=== PATIENT | male | born 1950 | race Caucasian/White ===

== ENCOUNTER 2016-07-17 21:19 | Emergency (ER) | payer OTHER ==
[2016-07-17 21:45] VITALS: BP 157/66; PULSE 66; TEMP 98.6; BMI 32.5
--- NOTE | 2016-07-17 21:47 | PDOC ---
History of Present Illness - General History Source: Patient Exam Limitations: No Limitations - History of Present Illness Initial Comments: 07/17/16 22:16 Patient is a 65 year old male with a significant past medical history of DM, htn , hld, femoral stents (on Plavix) and BPH who presents to the ED with urinary frequency and L flank pain. Patient notes that he gets urgency every 5 minutes to urinate but has a small urine output. He states that he has a sensation to urinate all the time. He states that he cannot sit down due to the pressure he experiences while sitting down that radiates to his rectum. He notes that his last bowel movement was today, normal and without any pain during the movement. PCP - Dr. Hillman <Shelbie Santos - Last Filed: 07/17/16 22:15> <Jeannine Garcia - Last Filed: 07/18/16 06:39> - General Chief Complaint: Urinary Problem Stated Complaint: URINARY PROBLEM/PAIN Time Seen by Provider: 07/17/16 21:46 Past History <Shelbie Santos - Last Filed: 07/17/16 22:15> - Past Medical History Cancer: Yes (lung) Diabetes: Yes HTN: Yes Hypercholesterolemia: Yes - Psycho/Social/Smoking Cessation Hx Suicidal Ideation: No Smoking History: Never smoked <Jeannine Garcia - Last Filed: 07/18/16 06:39> - Past Medical History Allergies/Adverse Reactions: Allergies Allergy/AdvReac Type Severity Reaction Status Date / Time No Known Allergies Allergy Verified 07/17/16 21:40 Home Medications: Ambulatory Orders Cefuroxime Axetil [Ceftin -] 500 mg PO Q12H #14 tablet 07/17/16 Review of Systems - Review of Systems Able to Perform ROS?: Yes Comments:: 07/17/16 22:16 GENERAL/CONSTITUTIONAL: No fever or chills. No weakness. HEAD, EYES, EARS, NOSE AND THROAT: No change in vision. No ear pain or discharge. No sore throat. CARDIOVASCULAR: No chest pain or shortness of breath. RESPIRATORY: No cough, wheezing, or hemoptysis. GASTROINTESTINAL: No nausea, vomiting, diarrhea or constipation. GENITOURINARY: +urgency, +frequency. No dysuria. MUSCULOSKELETAL: No joint or muscle swelling or pain. No neck or back pain. SKIN: No rash NEUROLOGIC: No headache, vertigo, loss of consciousness, or change in strength/ sensation. ENDOCRINE: No increased thirst. No abnormal weight change. HEMATOLOGIC/LYMPHATIC: No anemia, easy bleeding, or history of blood clots. ALLERGIC/IMMUNOLOGIC: No hives or skin allergy. <Shelbie Santos - Last Filed: 07/17/16 22:15> *Physical Exam - Vital Signs Last Vital Signs Temp Pulse Resp BP Pulse Ox 98.6 F 66 20 157/66 97 07/17/16 21:40 07/17/16 21:40 07/17/16 21:40 07/17/16 21:40 07/17/16 21:40 - Physical Exam Comments: 07/17/16 22:16 GENERAL: Awake, alert, and fully oriented, in no acute distress HEAD: No signs of trauma EYES: PERRLA, EOMI, sclera anicteric, conjunctiva clear ENT: Auricles normal inspection, hearing grossly normal, nares patent, oropharynx clear without exudates. Moist mucosa NECK: Normal ROM, supple, no lymphadenopathy, JVD, or masses LUNGS: Breath sounds equal, clear to auscultation bilaterally. No wheezes, and no crackles HEART: Regular rate and rhythm, normal S1 and S2, no murmurs, rubs or gallops ABDOMEN: Nondistended, soft, nontender, normoactive bowel sounds. No suprapubic tendereness. No guarding, no rebound. No masses EXTREMITIES: Normal range of motion, no edema. No clubbing or cyanosis. No cords, erythema, or tenderness NEUROLOGICAL: Cranial nerves II through XII grossly intact. Normal speech, normal gait SKIN: Warm, Dry, normal turgor, no rashes or lesions noted. <Shelbie Santos - Last Filed: 07/17/16 22:15> - Vital Signs Last Vital Signs Temp Pulse Resp BP Pulse Ox 98.6 F 66 20 157/66 97 07/17/16 21:40 07/17/16 21:40 07/17/16 21:40 07/17/16 21:40 07/17/16 21:40 <Jeannine Garcia - Last Filed: 07/18/16 06:39> ED Treatment Course - ADDITIONAL ORDERS Additional order review: Laboratory Results 07/17/16 21:53 Urine Color Ltyellow Urine Appearance Clear Urine pH 5.0 Ur Specific [place] 1.014 Urine Protein 2+ H Urine Glucose (UA) 1+ H Urine Ketones Negative Urine Blood Negative Urine Nitrite Negative Urine Bilirubin Negative Urine Urobilinogen Negative Ur Leukocyte Esterase 3+ H Urine RBC 1 Urine WBC 105 Ur Epithelial Cells Rare Hyaline Casts 1 Granular Casts 3 Urine Mucus Rare <Shelbie Santos - Last Filed: 07/17/16 22:15> Medical Decision Making - Medical Decision Making 07/18/16 06:38 Pt comes with dysuria and he has a UTI. We will treat with ceftin. He has no pain with bowel movements and he is afebrile and he has no suprapubic pain with palpation and no flank pain. No need for further workup. Follow with PMD. <Jeannine Garcia - Last Filed: 07/18/16 06:39> *DC/Admit/Observation/Transfer - Attestations Scribe Attestion: 07/17/16 22:17 Documentation prepared by RADHA Pagan, acting as medical instructor for Jeannine Garcia MD. <Shelbie Santos - Last Filed: 07/17/16 22:15> <Jeannine Garcia - Last Filed: 07/18/16 06:39> Diagnosis at time of Disposition: Dysuria-frequency syndrome - Discharge Dispostion Disposition: HOME Condition at time of disposition: Stable - Prescriptions Prescriptions: Cefuroxime Axetil [Ceftin -] 500 mg PO Q12H #14 tablet - Referrals Referrals: Rxe Hillman MD [Primary Care Provider] -
[2016-07-17 22:03] LABS: URINE APPEARANCE CLEAR; URINE BILIRUBIN NEGATIVE (NEGATIVE); URINE BLOOD NEGATIVE (NEGATIVE); URINE COLOR LTYELLOW; URINE GLUCOSE (UA) 1+ (NEGATIVE); URINE KETONE NEGATIVE (NEGATIVE); URINE NITRITE NEGATIVE (NEGATIVE); URINE UROBILINOGEN NEGATIVE E.U./dl (0.2-1.0)
[2016-07-17 22:06] LABS: URINE LEUK ESTERASE 3+ (NEGATIVE); URINE PROTEIN 2+ (NEGATIVE)
[2016-07-17 22:07] LABS: GRANULAR CASTS 3 /lpf; URINE HYALINE CAST 1 /lpf; URINE MUCUS RARE; URINE RBC 1 /hpf (0-3); URINE WBC 105 /hpf (3-5)
[2016-07-17] MEDS ORDERED: CEFUROXIME AXETIL 500 MG TABLET PO ONE (22:15)
[2016-07-17] MEDS ORDERED: OXYCODONE/APAP 5/325MG COMBO TABLET PO ONE (22:18)
[2016-07-17] MEDS ORDERED: IBUPROFEN 600 MG TABLET (FP) PO ONE ×2 (22:19→22:28)
[2016-07-17] MEDS ORDERED: OXYCODONE/APAP 5/325MG COMBO TABLET ONE (22:27)
== END 2016-07-17 22:39 | disposition home or self-care (01) ==
LOC: JER 21:19
DX: N39.0 Urinary tract infection, site not specified (principal); I10 Essential (primary) hypertension; E11.9 Type 2 diabetes mellitus without complications; E78.00 Pure hypercholesterolemia, unspecified; Z85.118 Personal history of other malignant neoplasm of bronchus and lung; I73.89 Other specified peripheral vascular diseases
CPT/HCPCS: 81003; 81015; 87086; 87186; 99281-25

== ENCOUNTER 2018-09-17 11:22 | Inpatient (IN) | payer OTHER ==
--- NOTE | 2018-09-17 12:10 | PDOC ---
History of Present Illness - General Chief Complaint: Shortness of Breath Stated Complaint: SOB Time Seen by Provider: 09/17/18 12:10 History Source: Patient Exam Limitations: No Limitations - History of Present Illness Initial Comments: 09/17/18 12:30 68 year old male with PMH HTN, IDDM, HLD, femoral stents, past nicotine use, NPH , UTI, right sided lung cancer s/p resection presented to ED for shortness of breath since last night. Pt reported he was laying down when his symptoms began. He stated his symptoms are constant, worsened by exertion, alleviated by rest. Pt admitted to [facility]. Pt denied chest pain, palpitations , cough, fever, sputum production. Pt reported in the last few weeks his PCP has been changing his Lasix dose, from 80 to 40 to 80 to 40 to nothing. Pt reported he last took Lasix x2 days ago. Past History - Past Medical History Allergies/Adverse Reactions: Allergies Allergy/AdvReac Type Severity Reaction Status Date / Time No Known Allergies Allergy Verified 09/17/18 11:30 Home Medications: Ambulatory Orders Amlodipine Besylate/Valsartan [Amlodipine-Valsartan 10-320 mg] 1 each PO DAILY 09/17/18 Aspirin 81 mg PO DAILY 09/17/18 Atorvastatin Ca [Lipitor] 20 mg PO HS 09/17/18 Cholecalciferol (Vitamin D3) [Vitamin D3] 50,000 unit PO WEEKLY 09/17/18 Clopidogrel Bisulfate [Plavix -] 75 mg PO DAILY 09/17/18 Doxazosin Mesylate [Cardura -] 4 mg PO DAILY 09/17/18 Furosemide [Lasix -] 40 mg PO DAILY 09/17/18 Glipizide [Glipizide ER] 10 mg PO DAILY 09/17/18 Hydralazine HCl 100 mg PO DAILY 09/17/18 Labetalol HCl 300 mg PO ASDIR 09/17/18 Nateglinide [Starlix (Nf)] 120 mg PO TID 09/17/18 Potassium Chloride [K-Dur -] 10 meq PO BID 09/17/18 Triamterene/Hydrochlorothiazid [Triamterene-Hctz 37.5-25 mg Cp] 1 each PO DAILY 09/17/18 Cancer: Yes (lung) COPD: No Diabetes: Yes HTN: Yes Hypercholesterolemia: Yes - Suicide/Smoking/Psychosocial Hx Smoking History: Never smoked Information on smoking cessation initiated: No Hx Alcohol Use: No Drug/Substance Use Hx: No Review of Systems - Review of Systems Able to Perform ROS?: Yes Comments:: 09/17/18 12:33 General: denied fever, chills, generalized weakness. HEENT: denied sore throat, rhinorrhea, ear pain. Heart: admitted to swelling. denied chest pain, palpitations, syncope, diaphoresis. Respiratory: admitted to shortness of breath, MEHTA. denied cough, sputum production, hemoptysis. Abdomen: denied abdominal pain, nausea, vomiting, diarrhea, constipation, blood in stool. : denied dysuria, increased urinary frequency, hematuria, urinary incontinence , flank pain. Back: denied back pain. Musculoskeletal: denied joint pain, muscle pain, joint swelling. Neurological: denied headache, dizziness, numbness, tingling, weakness. Skin: denied rash, laceration, abrasion. *Physical Exam - Vital Signs Last Vital Signs Temp Pulse Resp BP Pulse Ox 97.9 F 82 19 162/62 92 L 09/17/18 11:28 09/17/18 11:28 09/17/18 11:28 09/17/18 11:28 09/17/18 11:28 - Physical Exam Comments: 09/17/18 12:34 Constitutional: Well-nourished, Well-developed, appearing stated age. HEENT: head is normocephalic, atraumatic. EOMI. PERRLA. Neck: supple. Full ROM. Heart: regular rhythm. no murmurs, rubs or gallops. Lungs: clear to auscultation bilaterally. no crackles, rhonchi or wheezing. no stridor. speaking full sentences. decreased breath sounds to right base. Abdomen: soft, nontender. normal bowel sounds. no rebound, guarding, masses. Extremities: peripheral pulses intact. 4+ pitting edema bilateral LE. Neurological: CN 2-12 grossly intact. moves all four extremities. Psych: awake, alert, oriented x3. follows commands. answers questions appropriately. ED Treatment Course - LABORATORY CBC & Chemistry Diagram: 09/19/18 05:39 09/19/18 05:39 Medical Decision Making - Medical Decision Making 09/17/18 12:35 68 year old male with above PMH presented to ED for shortness of breath since last night associated with LE swelling. Initial Vital Signs Temp Pulse Resp BP Pulse Ox 97.9 F 82 19 162/62 92 L 09/17/18 11:28 09/17/18 11:28 09/17/18 11:28 09/17/18 11:28 09/17/18 11:28 Afebrile. No tachycardia. No tachypnea. Hypertensive. Mild hypoxia on room air. EKG performed at 1126: rate 83, regular rhythm, normal axis, normal intervals, one PVC, nonspecific ST changes. Labs ordered: CBC, CMP, Mg, Phos, BNP, troponin, VBG Imaging ordered: CXR Medications ordered: none 09/17/18 13:20 CBC WBC 13.4 K/mm3 (4.0-10.0) H 09/17/18 12:23 RBC 2.98 M/mm3 (4.00-5.60) L 09/17/18 12:23 Hgb 8.7 GM/dL (11.7-16.9) L 09/17/18 12:23 Hct 26.1 % (35.4-49) L D 09/17/18 12:23 MCV 87.7 fl (80-96) 09/17/18 12:23 MCH 29.4 pg (25.7-33.7) 09/17/18 12:23 MCHC 33.5 g/dl (32.0-35.9) 09/17/18 12:23 RDW 14.8 % (11.9-15.9) D 09/17/18 12:23 Plt Count 260 K/MM3 (134-434) 09/17/18 12:23 MPV 9.5 fl (7.5-11.1) 09/17/18 12:23 Absolute Neuts (auto) 11.8 K/mm3 (1.5-8.0) H 09/17/18 12:23 Neutrophils % 88.3 % (42.8-82.8) H 09/17/18 12:23 Lymphocytes % 3.0 % (8-40) L 09/17/18 12:23 Monocytes % 7.9 % (3.8-10.2) 09/17/18 12:23 Eosinophils % 0.3 % (0-4.5) 09/17/18 12:23 Basophils % 0.5 % (0-2.0) 09/17/18 12:23 Nucleated RBC % 0 % (0-0) 09/17/18 12:23 Leukocytosis with left shift. Normocytic anemia. CMP Sodium 138 mmol/L (136-145) 09/17/18 12:23 Potassium 4.2 mmol/L (3.5-5.1) 09/17/18 12:23 Chloride 103 mmol/L (98-107) 09/17/18 12:23 Carbon Dioxide 24 mmol/L (21-32) 09/17/18 12:23 Anion Gap 10 MMOL/L (8-16) 09/17/18 12:23 BUN 77.0 mg/dL (7-18) H 09/17/18 12:23 Creatinine 3.4 mg/dL (0.55-1.3) H 09/17/18 12:23 Est GFR (CKD-EPI)AfAm 20.04 09/17/18 12:23 Est GFR (CKD-EPI)NonAf 17.29 09/17/18 12:23 Random Glucose 53 mg/dL (74-106) L 09/17/18 12:23 Calcium 8.3 mg/dL (8.5-10.1) L 09/17/18 12:23 Phosphorus 4.4 mg/dL (2.5-4.9) 09/17/18 12:23 Magnesium 2.5 mg/dL (1.8-2.4) H 09/17/18 12:23 Total Bilirubin 0.2 mg/dL (0.2-1) 09/17/18 12:23 AST 23 U/L (15-37) 09/17/18 12:23 ALT 23 U/L (13-61) 09/17/18 12:23 Alkaline Phosphatase 107 U/L (45-117) 09/17/18 12:23 Troponin I < 0.02 ng/ml (0.00-0.05) 09/17/18 12:23 B-Natriuretic Peptide 3719.3 pg/ml (5-125) H 09/17/18 12:23 Total Protein 6.2 g/dl (6.4-8.2) L 09/17/18 12:23 Albumin 2.7 g/dl (3.4-5.0) L 09/17/18 12:23 No clinically significant electrolyte abnormalities. BRET No transaminitis. Troponin undetectable. BNP elevated. Pt has CHF exacerbation with BRET. CXR appears fluid overloaded. Medications ordered: Lasix 20 mg IV once 09/19/18 13:42 Follow up: Chest XR report: Single AP view the chest has been submitted. Since the prior since 10/03/2006 there is a large heart , unfolded aorta, slight tracheal deviation to the right, left perihilar infiltrate and large right effusion with right infiltrate. An element of central congestion may also be present. Correlation recommended. Reported By: Monty Perdomo MD 09/17/18 8526 *DC/Admit/Observation/Transfer Diagnosis at time of Disposition: CHF exacerbation, Leukocytosis, BRET (acute kidney injury), Normocytic anemia - Discharge Dispostion Condition at time of disposition: Stable Decision to Admit order: Yes - Referrals - Patient Instructions - Post Discharge Activity
[2018-09-17 12:57] LABS: BASO % 0.5 % (0-2.0); EOS % 0.3 % (0-4.5); HEMATOCRIT 26.1 % (35.4-49); HEMOGLOBIN 8.7 GM/dL (11.7-16.9); MCH 29.4 pg (25.7-33.7); MCHC 33.5 g/dl (32.0-35.9); MEAN CELL VOLUME 87.7 fl (80-96); MEAN PLT VOLUME 9.5 fl (7.5-11.1); MONO % 7.9 % (3.8-10.2); NEUT % 88.3 % (42.8-82.8); PLATELET COUNT 260 K/MM3 (134-434); RBC 2.98 M/mm3 (4.00-5.60); RDW 14.8 % (11.9-15.9); WHITE BLOOD COUNT 13.4 K/mm3 (4.0-10.0)
[2018-09-17 13:10] LABS: INR 1.11 (0.83-1.09); PROTHROMBIN TIME (PATIENT) 13.1 SEC (9.7-13.0)
[2018-09-17 13:12] LABS: ACTIVATED PTT 29.6 SECONDS (25.2-36.5)
[2018-09-17 13:19] LABS: ALBUMIN 2.7 g/dl (3.4-5.0); ALK PHOS 107 U/L (45-117); ANION GAP 10 MMOL/L (8-16); BILIRUBIN,TOTAL 0.2 mg/dL (0.2-1); CALCIUM 8.3 mg/dL (8.5-10.1); CHLORIDE 103 mmol/L (98-107); CO2 24 mmol/L (21-32); CREATININE 3.4 mg/dL (0.55-1.3); GLUCOSE,RANDOM 53 mg/dL (74-106); MAGNESIUM 2.5 mg/dL (1.8-2.4); N-TERMINAL BNP 3719.3 pg/ml (5-125); PHOSPHOROUS 4.4 mg/dL (2.5-4.9); POTASSIUM 4.2 mmol/L (3.5-5.1); SGOT/AST 23 U/L (15-37); SGPT/ALT 23 U/L (13-61); SODIUM 138 mmol/L (136-145); TOT PROT 6.2 g/dl (6.4-8.2)
--- NOTE | 2018-09-17 13:19 | PDOC ---
Documentation entered by Bennie Torres SCRIBE, acting as scribe for Karolina Allen MD. Karolina Allen MD: This documentation has been prepared by the Brian sawyer Nirvannie, SCRIBE, under my direction and personally reviewed by me in its entirety. I confirm that the documentation accurately reflects all work, treatment, procedures, and medical decision making performed by me. Attending Attestation - Resident Resident Name: Kerrie Mae - ED Attending Attestation I have performed the following: I have examined & evaluated the patient, The case was reviewed & discussed with the resident, I agree w/resident's findings & plan, Exceptions are as noted - HPI HPI: 09/17/18 13:04 The patient is a 68 year old male, with a significant past medical history of HTN, IDDM, HLD, femoral stents, past nicotine use, BPH, UTI, and right sided lung cancer (s/p resection), who presents to the emergency department with, constant exertional shortness of breath onsetting last night while lying supine. He denies any chest pain. Allergies: NKDA - Physicial Exam PE: 09/17/18 12:19 GENERAL: Awake, alert, and fully oriented, in no acute distress HEAD: No signs of trauma EYES: PERRLA, EOMI, sclera anicteric, conjunctiva clear. +B/L periorbital edema ENT: Auricles normal inspection, hearing grossly normal, nares patent, oropharynx clear without exudates. Moist mucosa NECK: Normal ROM, supple, no lymphadenopathy, JVD, or masses LUNGS: Good air entry B/L, +diffuse rhonchi HEART: Regular rate and rhythm, normal S1 and S2, no murmurs, rubs or gallops ABDOMEN: Soft, nontender, normoactive bowel sounds. No guarding, no rebound. No masses EXTREMITIES: Normal range of motion, 3+ pitting edema to BLE. No clubbing or cyanosis. No cords, erythema, or tenderness NEUROLOGICAL: Cranial nerves II through XII grossly intact. Normal speech. Motor and sensation intact SKIN: Warm, Dry, normal turgor, no rashes or lesions noted - Medical Decision Making Pt presents with recent URI symptoms and cough, now with SOB and MEHTA. DDx includes ACS, CHF, pna. Will obtain CXR and labs. Likely admission given multiple comorbidities.
[2018-09-17] MEDS ORDERED: FUROSEMIDE 40 MG/4 ML INJECTABLE VIAL IVPUSH ONE (13:33)
[2018-09-17] MEDS ORDERED: FUROSEMIDE 40 MG/4 ML INJECTABLE VIAL ONE (13:35)
[2018-09-17 14:08] LABS: VENOUS PC02 39.5 mmHg (41-51); VENOUS PH 7.38 (7.31-7.41); VENOUS PO2 58.6 mmHg (30-40)
--- NOTE | 2018-09-17 14:37 | HP ---
Admitting History and Physical - Primary Care Physician PCP: Rex Hillman - Admission History of Present Illness: Pt seen/ examined chart reviewed 68 year old male with PMH HTN, IDDM, HLD, femoral stents, past nicotine use, NPH , UTI, right sided lung cancer s/p resection presented to ED for shortness of breath since last night. Pt reported he was laying down when his symptoms began. He stated his symptoms are constant, worsened by exertion, alleviated by rest. Pt admitted to [facility]. Pt denied chest pain, palpitations , cough, fever, sputum production. Pt reported in the last few weeks his PCP has been changing his Lasix dose, from 80 to 40 to 80 to 40 to nothing. Pt reported he last took Lasix x2 days ago. pt given lasix in er -- for chf exac pt seen / examined by me in er History Source: Patient Limitations to Obtaining History: No Limitations - Smoking History Smoking history: Never smoked - Alcohol/Substance Use Hx Alcohol Use: No Home Medications - Allergies Allergies/Adverse Reactions: Allergies Allergy/AdvReac Type Severity Reaction Status Date / Time No Known Allergies Allergy Verified 09/17/18 11:30 - Home Medications Home Medications: Ambulatory Orders Amlodipine Besylate/Valsartan [Amlodipine-Valsartan 10-320 mg] 1 each PO DAILY 09/17/18 Aspirin 81 mg PO DAILY 09/17/18 Atorvastatin Ca [Lipitor] 20 mg PO HS 09/17/18 Cholecalciferol (Vitamin D3) [Vitamin D3] 50,000 unit PO WEEKLY 09/17/18 Clopidogrel Bisulfate [Plavix -] 75 mg PO DAILY 09/17/18 Doxazosin Mesylate [Cardura -] 4 mg PO DAILY 09/17/18 Furosemide [Lasix -] 40 mg PO DAILY 09/17/18 Glipizide [Glipizide ER] 10 mg PO DAILY 09/17/18 Hydralazine HCl 100 mg PO DAILY 09/17/18 Labetalol HCl 300 mg PO ASDIR 09/17/18 Nateglinide [Starlix (Nf)] 120 mg PO TID 09/17/18 Potassium Chloride [K-Dur -] 10 meq PO BID 09/17/18 Triamterene/Hydrochlorothiazid [Triamterene-Hctz 37.5-25 mg Cp] 1 each PO DAILY 09/17/18 Review of Systems - Review of Systems Constitutional: reports: Weakness Eyes: reports: No Symptoms Neck: reports: No Symptoms Cardiovascular: reports: No Symptoms, Shortness of Breath Respiratory: reports: SOB Genitourinary: reports: No Symptoms Neurological: reports: No Symptoms Psychiatric: reports: No Symptoms Physical Examination Vital Signs: Vital Signs Temperature 97.9 F 09/17/18 11:28 Pulse Rate 74 09/17/18 14:27 Respiratory Rate 22 H 09/17/18 14:27 Blood Pressure 171/84 H 09/17/18 14:27 O2 Sat by Pulse Oximetry (%) 99 09/17/18 14:27 Constitutional: Yes: No Distress, Calm Eyes: Yes: Conjunctiva Clear Neck: Yes: Supple Respiratory: Yes: Diminished, Dullness Gastrointestinal: Yes: Soft Edema: LLE: Trace, RLE: Trace Neurological: Yes: Alert Psychiatric: Yes: Alert Labs: CBC, BMP 09/17/18 12:23 09/17/18 12:23 Imaging - Results Chest X-ray: Report Reviewed Problem List - Problems (1) Pneumonia Code(s): J18.9 - PNEUMONIA, UNSPECIFIED ORGANISM (2) Acute and chronic respiratory failure Code(s): J96.20 - ACUTE AND CHR RESP FAILURE, UNSP W HYPOXIA OR HYPERCAPNIA (3) CHF exacerbation Code(s): I50.9 - HEART FAILURE, UNSPECIFIED (4) History of lung cancer Code(s): Z85.118 - PERSONAL HISTORY OF MALIGNANT NEOPLASM OF BRONCHUS AND LUNG (5) Diabetes Code(s): E11.9 - TYPE 2 DIABETES MELLITUS WITHOUT COMPLICATIONS (6) Chronic renal insufficiency, stage III (moderate) Code(s): N18.3 - CHRONIC KIDNEY DISEASE, STAGE 3 (MODERATE) Assessment/Plan Discussed cxr - showed pneumonia also stat dose of levaquin nebulizer treatment i/v lasix pulmonary/ cardiology consults dvt prophylaxis meds order written monitor bgm avoid nsaids will follow
[2018-09-17 14:39] LABS: EPI CELLS 2.7 /HPF (0-5/HPF); HYALINE CASTS 6 /lpf (0-8); URINE APPEARANCE CLEAR; URINE BACTERIA 4.7 /hpf (NEGATIVE); URINE BILIRUBIN NEGATIVE (NEGATIVE); URINE COLOR YELLOW; URINE GLUCOSE (UA) NEGATIVE (NEGATIVE); URINE KETONE NEGATIVE (NEGATIVE); URINE LEUK ESTERASE NEGATIVE (NEGATIVE); URINE NITRITE NEGATIVE (NEGATIVE); URINE PROTEIN 3+ (NEGATIVE); URINE RBC 3 /hpf (0-4); URINE UROBILINOGEN 0.2 mg/dL (0.2-1.0); URINE WBC 1 /hpf (0-5)
--- NOTE | 2018-09-17 16:03 | CON.CARD ---
Consult Consult Specialty:: Cardiology Referred by:: Medicine Reason for Consultation:: CHF - History of Present Illness Chief Complaint: shortness of breath History of Present Illness: 68M h/o HTN, DM, HLD, PAD s/p femoral stent, prior smoker, R sided lung ca s/p partial resection p/w shortness of breath. Started two days ago, felt like he was catching a cold, did not improve and woke up unable to breathe prior to admission. Also feels tight in chest, swelling in both legs. Has had leg swelling in the past, was treated with lasix in office prior. - History Source History Provided By: Patient, Family Member - Alcohol/Substance Use Hx Alcohol Use: No - Smoking History Smoking history: Never smoked Home Medications - Allergies Allergies/Adverse Reactions: Allergies Allergy/AdvReac Type Severity Reaction Status Date / Time No Known Allergies Allergy Verified 09/17/18 11:30 - Home Medications Home Medications: Ambulatory Orders Amlodipine Besylate/Valsartan [Amlodipine-Valsartan 10-320 mg] 1 each PO DAILY 09/17/18 Aspirin 81 mg PO DAILY 09/17/18 Atorvastatin Ca [Lipitor] 20 mg PO HS 09/17/18 Cholecalciferol (Vitamin D3) [Vitamin D3] 50,000 unit PO WEEKLY 09/17/18 Clopidogrel Bisulfate [Plavix -] 75 mg PO DAILY 09/17/18 Doxazosin Mesylate [Cardura -] 4 mg PO DAILY 09/17/18 Furosemide [Lasix -] 40 mg PO DAILY 09/17/18 Glipizide [Glipizide ER] 10 mg PO DAILY 09/17/18 Hydralazine HCl 100 mg PO DAILY 09/17/18 Labetalol HCl 300 mg PO ASDIR 09/17/18 Nateglinide [Starlix (Nf)] 120 mg PO TID 09/17/18 Potassium Chloride [K-Dur -] 10 meq PO BID 09/17/18 Triamterene/Hydrochlorothiazid [Triamterene-Hctz 37.5-25 mg Cp] 1 each PO DAILY 09/17/18 Family Disease History - Family Disease History Family History: Unremarkable Review of Systems - Review of Systems Constitutional: reports: No Symptoms Eyes: reports: No Symptoms HENT: reports: No Symptoms Neck: reports: No Symptoms Cardiovascular: reports: Edema, Shortness of Breath Respiratory: reports: Cough Gastrointestinal: reports: No Symptoms Genitourinary: reports: No Symptoms Musculoskeletal: reports: No Symptoms Integumentary: reports: No Symptoms Neurological: reports: No Symptoms Endocrine: reports: No Symptoms Hematology/Lymphatic: reports: No Symptoms Psychiatric: reports: No Symptoms Vital Signs: Vital Signs Temperature 97.9 F 09/17/18 11:28 Pulse Rate 74 09/17/18 14:27 Respiratory Rate 22 H 09/17/18 14:27 Blood Pressure 171/84 H 09/17/18 14:27 O2 Sat by Pulse Oximetry (%) 99 09/17/18 14:27 Constitutional: Yes: Well Nourished, No Distress, Calm Eyes: Yes: Conjunctiva Clear, EOM Intact HENT: Yes: Atraumatic, Normocephalic Neck: Yes: Supple, Trachea Midline Respiratory: Yes: Regular, Rales, Rhonchi Gastrointestinal: Yes: Normal Bowel Sounds, Soft Cardiovascular: Yes: Regular Rate and Rhythm JVD: No Carotid Bruit: No PMI: Non-Displaced Heart Sounds: Yes: S1, S2 Musculoskeletal: No: Back Pain Extremities: No: Cold Edema: Yes Edema: LLE: 1+, RLE: 1+ Peripheral Pulses WNL: Yes Peripheral Pulses: 2+ Left Doralis Pedis, 2+ Right Dorsalis Pedis Integumentary: No: Jaundice Neurological: Yes: Alert, Oriented Psychiatric: No: Agitated - Other Data Labs, Other Data: CBC, BMP 09/17/18 12:23 09/17/18 12:23 INR, PTT INR 1.11 (0.83-1.09) H 09/17/18 12:23 Troponin, BNP 09/17/18 12:23 Troponin I < 0.02 B-Natriuretic Peptide 3719.3 H Troponin, BNP 09/17/18 12:23 Troponin I < 0.02 B-Natriuretic Peptide 3719.3 H Assessment/Plan mibi 2015 no ischemia, nl EF EKG: sinus, PVC, no ischemic changes tele: sinus CXR: L perihilar infiltrate, large R effusion with R infiltrate, congestion 68M h/o HTN, DM, HLD, PAD s/p femoral stent, prior smoker, R sided lung ca s/p partial resection p/w shortness of breath shortness of breath, acute CHF exacerbation - likely multifactorial - h/o lung ca s/p resection, findings concerning for PNA - abx, nebs per primary, pulm - elevated BNP with congestion on CXR, likely component of HF - nl EF in 2016 - echo ordered - continue IV lasix - monitor daily weights, lytes, Cr HTN - holding home diuretic, valsartan - cont hydralazine, monitor HLD - cont statin PAD - cont statin, aspirin DM - manage per primary BRET on CKD - diuresis as above, may be cardiorenal - monitor Cr with diuresis
[2018-09-17] MEDS ORDERED: ALBUTEROL SO4 2.5/IPRATROPIUM 0.5 INH SOL 3 ML VIAL.NEB. NEB ONE (17:25)
[2018-09-17] MEDS: ENOXAPARIN NA (PORCINE) 30 MG/0.3 ML DISP.SYRIN SQ SCH (17:48)
[2018-09-17] MEDS: INSULIN SLIDING SCALE (NOVOLOG) 1 VIAL SQ SCH ×2 (17:49→22:04)
[2018-09-17] MEDS ORDERED: LABETALOL HCL 100 MG TABLET (FP) ONE (21:43)
[2018-09-17] MEDS ORDERED: LABETALOL HCL 200 MG TABLET (FP) ONE (21:43)
[2018-09-17] MEDS ORDERED: INSULIN (NOVOLOG) ASPART 100 UNITS/ML 10ML VIAL ONE (21:47)
[2018-09-17] MEDS: LABETALOL HCL 100 MG, LABETALOL HCL 200 MG PO SCH (21:53)
[2018-09-17] MEDS: ATORVASTATIN CA 20 MG TABLET (FP) PO SCH (21:54)
[2018-09-17] MEDS ORDERED: PATIENT'S OWN MEDICATION (NON-FORMULARY) (Labetalol Hcl [Labetalol Hcl] 300 MG) PO SCH (22:00)
[2018-09-17] MEDS: INSULIN (LEVEMIR) 100 UNITS/ML UNITS SQ SCH (22:04)
[2018-09-18] MEDS: INSULIN SLIDING SCALE (NOVOLOG) 1 VIAL SQ SCH ×3 (06:17→21:53)
[2018-09-18] MEDS ORDERED: METHADONE HCL 10 MG TABLET PO ONE (07:52)
[2018-09-18 07:54] LABS: ALBUMIN 2.4 g/dl (3.4-5.0); BILIRUBIN,TOTAL 0.3 mg/dL (0.2-1); BLOOD UREA NITROGEN 79.9 mg/dL (7-18); CREATININE 3.2 mg/dL (0.55-1.3); N-TERMINAL BNP 5800.9 pg/ml (5-125)
[2018-09-18] MEDS ORDERED: LABETALOL HCL 200 MG TABLET (FP) ONE ×2 (08:07→21:21)
[2018-09-18] MEDS ORDERED: LABETALOL HCL 100 MG TABLET (FP) ONE ×2 (08:07→21:21)
[2018-09-18 08:28] LABS: BASO % 0.3 % (0-2.0); EOS % 0.4 % (0-4.5); HEMATOCRIT 25.3 % (35.4-49); HEMOGLOBIN 8.7 GM/dL (11.7-16.9); LYMPH % 5.8 % (8-40); MCH 30.1 pg (25.7-33.7); MCHC 34.2 g/dl (32.0-35.9); MEAN CELL VOLUME 87.9 fl (80-96); MEAN PLT VOLUME 9.3 fl (7.5-11.1); MONO % 9.8 % (3.8-10.2); NEUT % 83.7 % (42.8-82.8); PLATELET COUNT 236 K/MM3 (134-434); RBC 2.88 M/mm3 (4.00-5.60); RDW 15.1 % (11.9-15.9); WHITE BLOOD COUNT 10.6 K/mm3 (4.0-10.0)
[2018-09-18] MEDS: CLOPIDOGREL BISULFATE 75 MG TABLET (FP) PO SCH ×2 (08:42→09:50)
[2018-09-18] MEDS: LABETALOL HCL 100 MG, LABETALOL HCL 200 MG PO SCH ×3 (08:42→21:46)
[2018-09-18] MEDS: hydrALAZINE HCL 50 MG TABLET (FP) PO SCH ×2 (08:42→09:49)
[2018-09-18] MEDS: ENOXAPARIN NA (PORCINE) 30 MG/0.3 ML DISP.SYRIN SQ SCH ×2 (08:43→09:50)
[2018-09-18] MEDS: FUROSEMIDE 100 MG/10 ML INJECTABLE VIAL IVPB SCH ×2 (08:43→09:49)
[2018-09-18] MEDS: ALBUTEROL SO4 2.5/IPRATROPIUM 0.5 INH SOL 3 ML VIAL.NEB. NEB PRN ×2 (08:45→21:05)
[2018-09-18] MEDS ORDERED: PATIENT'S OWN MEDICATION (NON-FORMULARY) (Hydralazine Hcl [Hydralazine Hcl] 100 MG) PO SCH (10:00)
--- NOTE | 2018-09-18 10:57 | ECHO ---
Version: 1 Name: MARTHA PAVON Exam: Adult Echocardiogram Study Date: 09/18/2018, 8:05 AM Age: 68 Years MMode/2D Measurements & Calculations IVSd: 1.05 cm LVIDs: 3.5 cm LVIDd: 4.8 cm LVPWd: 1.36 cm ACS: 2.03 cm LVOT diam: 1.95 cm Doppler Measurements & Calculations MV E max bassem: 125.9 cm/sec Med E/e': 17.7 MV A max bassem: 156.1 cm/sec Med Peak E' Bassem: 7.1 cm/sec MV E/A: 0.81 Lat E/e': 10.5 Lat Peak E' Bassem: 12.0 cm/sec MR max P.2 mmHg Ao max P.4 mmHg TIERRA(I,D): 2.8 cm Ao mean P.1 mmHg LV V1 mean: 74.2 cm/sec Ao V2 max: 183.2 cm/sec LV V1 mean P.48 mmHg TR max bassem: 262.0 cm/sec TR max P.5 mmHg Procedure A complete two-dimensional transthoracic echocardiogram was performed (2D, M-mode, Doppler and color flow Doppler). Left Ventricle The left ventricular size, thickness and function are normal. Ejection Fraction = 65%. E/A reversal consistent with but not diagnostic of poor LV compliance. The left ventricular wall motion is normal . Right Ventricle The right ventricle is normal in size and function. Atria Normal left and right atrial size and function. Mitral Valve There is mild mitral annular calcification. There is trace mitral regurgitation. Tricuspid Valve The tricuspid valve is not well visualized. Right ventricular systolic pressure is 32 mmhg. Assuming the RA pressure is 5 mmHg. Aortic Valve There is mild aortic sclerosis.;. Trace aortic regurgitation. Pulmonic Valve The pulmonic valve is not well visualized. Great Vessels The aortic root is normal size. Pericardium/Pleura There is no pericardial effusion. There is no pleural effusion. Summary Statements The left ventricular size, thickness and function are normal Ejection Fraction = 65%. The right ventricle is normal in size and function. There is mild mitral annular calcification. There is trace mitral regurgitation. Right ventricular systolic pressure is 32 mmhg. Assuming the RA pressure is 5 mmHg There is mild aortic sclerosis.; Trace aortic regurgitation. MD Frank Vazquez 09/18/2018, 9:56 AM Ordering Physician: MARTIN ALVAREZ Performed By: Katty Cabezas
--- NOTE | 2018-09-18 11:11 | PN ---
Progress Note (short form) - Note Progress Note: s: edema, sob improving. no chest pain, palps, dizziness Current Medications Albuterol/Ipratropium (Duoneb -) 1 amp NEB Q6H PRN PRN Reason: SHORTNESS OF BREATH Last Admin: 09/18/18 08:45 Dose: 1 amp Amlodipine Besylate (Norvasc -) 10 mg PO DAILY [facility] Atorvastatin Calcium (Lipitor -) 20 mg PO HS [facility] Last Admin: 09/17/18 21:54 Dose: 20 mg Clopidogrel Bisulfate (Plavix -) 75 mg PO DAILY [facility] Last Admin: 09/18/18 09:50 Dose: Not Given Doxazosin Mesylate (Cardura -) 4 mg PO DAILY [facility] Enoxaparin Sodium (Lovenox -) 30 mg SQ DAILY [facility] Last Admin: 09/18/18 09:50 Dose: Not Given Furosemide (Lasix Injection -) 40 mg IVPB DAILY [facility] Last Admin: 09/18/18 09:49 Dose: Not Given Hydralazine HCl (Apresoline -) 100 mg PO DAILY [facility] Last Admin: 09/18/18 09:49 Dose: Not Given Levofloxacin (Levaquin 250 Mg Premixed Ivpb -) 250 mg in 50 mls @ 50 mls/hr IVPB DAILY [facility]; Protocol Last Admin: 09/18/18 09:49 Dose: Not Given Insulin Aspart (Novolog Vial Sliding Scale -) 1 vial SQ [facility]; Protocol Last Admin: 09/18/18 06:17 Dose: Not Given Insulin Detemir (Levemir Vial) 10 units SQ [facility] Last Admin: 09/17/18 22:04 Dose: Not Given Labetalol HCl 100 mg/ (Labetalol HCl 200 mg) 300 mg PO BID [facility] Last Admin: 09/18/18 09:50 Dose: Not Given Pneumococcal 13-Valent Conj Vacc (Prevnar 13 Syringe -) 0.5 ml IM .ONCE ONE Stop: 09/18/18 10:59 Vital Signs Period Temp Pulse Resp BP Sys/Bansal Pulse Ox Last 24 Hr 97.9 F-98.9 F 74-93 19-22 131-181/62-84 92-99 Constitutional: Yes: Well Nourished, No Distress, Calm Eyes: Yes: Conjunctiva Clear, EOM Intact HENT: Yes: Atraumatic, Normocephalic Neck: Yes: Supple, Trachea Midline Respiratory: Yes: Regular, Rales, Rhonchi Gastrointestinal: Yes: Normal Bowel Sounds, Soft Cardiovascular: Yes: Regular Rate and Rhythm JVD: No Carotid Bruit: No PMI: Non-Displaced Heart Sounds: Yes: S1, S2 Musculoskeletal: No: Back Pain Extremities: No: Cold Edema: Yes Edema: LLE: 1+, RLE: 1+ Peripheral Pulses WNL: Yes Peripheral Pulses: 2+ Left Doralis Pedis, 2+ Right Dorsalis Pedis Integumentary: No: Jaundice Neurological: Yes: Alert, Oriented Psychiatric: No: Agitated Assessment/Plan mibi 2016 no ischemia, nl EF EKG: sinus, PVC, no ischemic changes echo 09/2018 nl LV function, mild MAC, tr MR, tr AR, RVSP 32 mmHg tele: sinus CXR: L perihilar infiltrate, large R effusion with R infiltrate, congestion 68M h/o HTN, DM, HLD, PAD s/p femoral stent, prior smoker, R sided lung ca s/p partial resection p/w shortness of breath shortness of breath, acute diastolic CHF exacerbation - likely multifactorial - h/o lung ca s/p resection, findings concerning for PNA - abx, nebs per primary, pulm - elevated BNP with congestion on CXR, likely component of HF - nl EF in 2016 - echo nl LV function - continue IV lasix - monitor daily weights, lytes, Cr HTN - holding home diuretic, valsartan - cont hydralazine, monitor HLD - cont statin PAD - cont statin, aspirin DM - manage per primary BRET on CKD - diuresis as above, may be cardiorenal, improving - monitor Cr with diuresis
--- NOTE | 2018-09-18 11:29 | CONSULT ---
Consult - text type - Consultation Consultation Note: Renal consult for BRET vs. CKD This is a 68 year old gentleman with hx of of hypertension, DM on insulin, PVD s/p Le stents, BPH, Hx of Lung cancer s/p resection who presented with SOB and noted to have BUN/Cr of 79/3.2. Prior Cr in EMR 1.8-2.1. Pt reports progressive shortness of breath x 3 days with leg swelling. He was recently told by his PMD to hold his diuretics, he is not sure the reason why. Does use sporadic NSAIDs. No hx of kidney stones. No recent antibiotic or contrast exposure. Denies any flank pain, skin rash. No chest pain, fever, chills, N/V/D. Making urine w/o difficulty. PMhx: as above Allergies: NKDA Family Hx: NC Social Hx: No T/A/D ROS: as per HPI Home Medications Medication Instructions Recorded Amlodipine Besylate/Valsartan 1 each PO DAILY 09/17/18 [Amlodipine-Valsartan 10-320 mg] Aspirin 81 mg PO DAILY 09/17/18 Atorvastatin Ca [Lipitor] 20 mg PO HS 09/17/18 Cholecalciferol (Vitamin D3) 50,000 unit PO WEEKLY 09/17/18 [Vitamin D3] Clopidogrel Bisulfate [Plavix -] 75 mg PO DAILY 09/17/18 Doxazosin Mesylate [Cardura -] 4 mg PO DAILY 09/17/18 Furosemide [Lasix -] 40 mg PO DAILY 09/17/18 Glipizide [Glipizide ER] 10 mg PO DAILY 09/17/18 Hydralazine HCl 100 mg PO DAILY 09/17/18 Labetalol HCl 300 mg PO ASDIR 09/17/18 Nateglinide [Starlix (Nf)] 120 mg PO TID 09/17/18 Potassium Chloride [K-Dur -] 10 meq PO BID 09/17/18 Triamterene/Hydrochlorothiazid 1 each PO DAILY 09/17/18 [Triamterene-Hctz 37.5-25 mg Cp] Vital Signs Temperature 98.5 F 09/18/18 06:00 Pulse Rate 82 09/18/18 06:00 Respiratory Rate 20 09/18/18 02:00 Blood Pressure 181/80 H 09/18/18 06:00 O2 Sat by Pulse Oximetry (%) 98 09/17/18 21:00 Intake & Output 09/15/18 09/16/18 09/17/18 09/18/18 23:59 23:59 23:59 23:59 Intake Total 110 0 Balance 110 0 Weight 86.183 kg NAD on NC O2 Neck supple, no JVD RRR, no M/R CTA, dec BS right lung bases, no overt rales soft, obese NT/ND no CVA tenderness ++LE edema no clubbing or cyanosis no bladder distension no focal neurologic deficits CBC, BMP 09/18/18 06:30 09/18/18 06:30 Laboratory Tests 09/17/18 09/18/18 09/18/18 14:20 05:56 06:30 Hemoglobin A1c % 6.9 H Calcium 8.0 L B-Natriuretic Peptide 5800.9 H Total Protein 6.0 L Albumin 2.4 L Urine Protein 3+ H Urine WBC (Auto) 1 Urine RBC (Auto) 3 Urine Casts (Auto) 6 U Epithel Cells (Auto) 2.7 Urine Bacteria (Auto) 4.7 CXR- left perihilar infiltrate, large right effusion with infiltrate ECHO- normal LV/RV function, trace MR Current Medications Albuterol/Ipratropium (Duoneb -) 1 amp NEB Q6H PRN PRN Reason: SHORTNESS OF BREATH Last Admin: 09/18/18 08:45 Dose: 1 amp Amlodipine Besylate (Norvasc -) 10 mg PO DAILY [facility] Atorvastatin Calcium (Lipitor -) 20 mg PO HS [facility] Last Admin: 09/17/18 21:54 Dose: 20 mg Clopidogrel Bisulfate (Plavix -) 75 mg PO DAILY [facility] Last Admin: 09/18/18 09:50 Dose: Not Given Doxazosin Mesylate (Cardura -) 4 mg PO DAILY [facility] Enoxaparin Sodium (Lovenox -) 30 mg SQ DAILY [facility] Last Admin: 09/18/18 09:50 Dose: Not Given Furosemide (Lasix Injection -) 40 mg IVPB DAILY [facility] Last Admin: 09/18/18 09:49 Dose: Not Given Hydralazine HCl (Apresoline -) 100 mg PO DAILY [facility] Last Admin: 09/18/18 09:49 Dose: Not Given Levofloxacin (Levaquin 250 Mg Premixed Ivpb -) 250 mg in 50 mls @ 50 mls/hr IVPB DAILY [facility]; Protocol Last Admin: 09/18/18 09:49 Dose: Not Given Insulin Aspart (Novolog Vial Sliding Scale -) 1 vial SQ ACHS [facility]; Protocol Last Admin: 09/18/18 06:17 Dose: Not Given Insulin Detemir (Levemir Vial) 10 units SQ HS [facility] Last Admin: 09/17/18 22:04 Dose: Not Given Labetalol HCl 100 mg/ (Labetalol HCl 200 mg) 300 mg PO BID [facility] Last Admin: 09/18/18 09:50 Dose: Not Given Pneumococcal 13-Valent Conj Vacc (Prevnar 13 Syringe -) 0.5 ml IM .ONCE ONE Stop: 09/18/18 11:31 68 year old gentleman with hx of of hypertension, DM on insulin, PVD s/ p Le stents, BPH, Hx of Lung cancer s/p resection who presented with SOB and noted to have BUN/Cr of 79/3.2. #Acute shortness of breath form diastolic HF vs. PNA #Acute on chronic renal insufficiency from cardio-renal syndrome vs. normotensive ATN vs. AIN vs. obstruction in urine flow vs. 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
[2018-09-18] MEDS ORDERED: PNEUMOC 13-VAL CONJ-DIP CRM/PF 0.5 ML DISP.SYRIN IM ONE (11:30)
--- NOTE | 2018-09-18 11:37 | PN ---
Progress Note (short form) - Note Progress Note: PULMONARY CONSULTATION DICTATED 09/18/18 IMP DYSPNEA BILATERAL INFILTRATES ACUTE ON CHRONIC CHF R/O PNEUMONIA ACUTE ON CHRONIC KIDNEY INJURY ANEMIA HTN DM H/O LUNG CA S/P RESECTION 1984 PLAN IV LASIX O2 EMPIRIC ABX F/U CHEST X-RAYS CHEST CT MONITOR LYTES,RENAL FUNCTION MONITOR CBC DAILY WT STRICT I+Os DR MARIE Problem List - Problems (1) Mgrzh-yk-ofrmbdh kidney injury Code(s): N17.9 - ACUTE KIDNEY FAILURE, UNSPECIFIED; N18.9 - CHRONIC KIDNEY DISEASE, UNSPECIFIED (2) CHF exacerbation Code(s): I50.9 - HEART FAILURE, UNSPECIFIED (3) Chronic renal insufficiency, stage III (moderate) Code(s): N18.3 - CHRONIC KIDNEY DISEASE, STAGE 3 (MODERATE) (4) Diabetes Code(s): E11.9 - TYPE 2 DIABETES MELLITUS WITHOUT COMPLICATIONS (5) History of lung cancer Code(s): Z85.118 - PERSONAL HISTORY OF MALIGNANT NEOPLASM OF BRONCHUS AND LUNG (6) Normocytic anemia Code(s): D64.9 - ANEMIA, UNSPECIFIED (7) Dyspnea Code(s): R06.00 - DYSPNEA, UNSPECIFIED
--- NOTE | 2018-09-18 12:04 | PN ---
Progress Note (short form) - Note Progress Note: feels well no complaints Vital Signs - 24 hr 09/17/18 09/17/18 09/17/18 12:12 14:27 16:24 Temperature 98.9 F Pulse Rate 80 Pulse Rate [ 74 Apical] Respiratory 22 H 22 H Rate Blood Pressure 131/77 Blood Pressure 171/84 H [Left Arm] O2 Sat by Pulse 98 99 99 Oximetry (%) 09/17/18 09/17/18 09/18/18 18:00 21:00 02:00 Temperature 98.9 F 98.7 F 98.3 F Pulse Rate 81 90 75 Pulse Rate [ Apical] Respiratory 22 H 22 H 20 Rate Blood Pressure 160/67 156/82 161/78 Blood Pressure [Left Arm] O2 Sat by Pulse 98 Oximetry (%) 09/18/18 06:00 Temperature 98.5 F Pulse Rate 82 Pulse Rate [ Apical] Respiratory Rate Blood Pressure 181/80 H Blood Pressure [Left Arm] O2 Sat by Pulse Oximetry (%) Current Medications Generic Name Dose Route Start Last Admin Trade Name Freq PRN Reason Stop Dose Admin Albuterol/Ipratropium 1 amp 09/17/18 14:35 09/18/18 08:45 Duoneb - NEB 1 amp Q6H PRN Administration SHORTNESS OF BREATH Amlodipine Besylate 10 mg 09/18/18 10:00 Norvasc - PO DAILY [facility] Atorvastatin Calcium 20 mg 09/17/18 22:00 09/17/18 21:54 Lipitor - PO 20 mg HS [facility] Administration Clopidogrel Bisulfate 75 mg 09/18/18 10:00 09/18/18 09:50 Plavix - PO Not Given DAILY [facility] Doxazosin Mesylate 4 mg 09/18/18 10:00 Cardura - PO DAILY [facility] Enoxaparin Sodium 30 mg 09/17/18 18:00 09/18/18 09:50 Lovenox - SQ Not Given DAILY [facility] Furosemide 40 mg 09/18/18 10:00 09/18/18 09:49 Lasix Injection - IVPB Not Given DAILY [facility] Hydralazine HCl 100 mg 09/18/18 10:00 09/18/18 09:49 Apresoline - PO Not Given DAILY [facility] Ceftriaxone Sodium 1 gm/ 50 mls @ 100 mls/hr 09/19/18 10:00 Dextrose IVPB DAILY [facility] Insulin Aspart 1 vial 09/17/18 16:30 09/18/18 06:17 Novolog Vial Sliding Scale - SQ Not Given ACHS [facility] Protocol Insulin Detemir 10 units 09/17/18 22:00 09/17/18 22:04 Levemir Vial SQ Not Given HS [facility] Labetalol HCl 100 mg/ 300 mg 09/17/18 22:00 09/18/18 09:50 Labetalol HCl 200 mg PO Not Given BID [facility] Methadone HCl 40 mg/ Methadone 60 mg 09/19/18 06:00 HCl 20 mg PO DAILY@0600 [facility] Laboratory Results - last 24 hr 09/17/18 09/17/18 09/17/18 12:23 12:23 12:23 WBC 13.4 H RBC 2.98 L Hgb 8.7 L Hct 26.1 L D MCV 87.7 MCH 29.4 MCHC 33.5 RDW 14.8 D Plt Count 260 MPV 9.5 Absolute Neuts (auto) 11.8 H Neutrophils % 88.3 H Lymphocytes % 3.0 L Monocytes % 7.9 Eosinophils % 0.3 Basophils % 0.5 Nucleated RBC % 0 PT with INR 13.10 H INR 1.11 H PTT (Actin FS) 29.6 VBG pH POC VBG pCO2 POC VBG pO2 VBG HCO3 VBG O2 Sat (Frida) VBG Base Excess Sodium 138 Potassium 4.2 Chloride 103 Carbon Dioxide 24 Anion Gap 10 BUN 77.0 H Creatinine 3.4 H Est GFR (CKD-EPI)AfAm 20.04 Est GFR (CKD-EPI)NonAf 17.29 POC Glucometer Random Glucose 53 L Hemoglobin A1c % Calcium 8.3 L Phosphorus 4.4 Magnesium 2.5 H Total Bilirubin 0.2 AST 23 ALT 23 Alkaline Phosphatase 107 Troponin I < 0.02 B-Natriuretic Peptide 3719.3 H Total Protein 6.2 L Albumin 2.7 L Triglycerides Cholesterol Total LDL Cholesterol HDL Cholesterol TSH Urine Color Urine Appearance Urine pH Ur Specific [place] Urine Protein Urine Glucose (UA) Urine Ketones Urine Blood Urine Nitrite Urine Bilirubin Urine Urobilinogen Ur Leukocyte Esterase Urine WBC (Auto) Urine RBC (Auto) Urine Casts (Auto) U Epithel Cells (Auto) Urine Bacteria (Auto) 09/17/18 09/17/18 09/17/18 12:23 13:45 14:20 WBC RBC Hgb Hct MCV MCH MCHC RDW Plt Count MPV Absolute Neuts (auto) Neutrophils % Lymphocytes % Monocytes % Eosinophils % Basophils % Nucleated RBC % PT with INR INR PTT (Actin FS) VBG pH Cancelled 7.38 POC VBG pCO2 Cancelled 39.5 L POC VBG pO2 Cancelled 58.6 H VBG HCO3 Cancelled 22.8 L VBG O2 Sat (Frida) Cancelled 89.1 H VBG Base Excess Cancelled -1.6 Sodium Potassium Chloride Carbon Dioxide Anion Gap BUN Creatinine Est GFR (CKD-EPI)AfAm Est GFR (CKD-EPI)NonAf POC Glucometer Random Glucose Hemoglobin A1c % Calcium Phosphorus Magnesium Total Bilirubin AST ALT Alkaline Phosphatase Troponin I B-Natriuretic Peptide Total Protein Albumin Triglycerides Cholesterol Total LDL Cholesterol HDL Cholesterol TSH Urine Color Yellow Urine Appearance Clear Urine pH 5.0 Ur Specific [place] 1.013 Urine Protein 3+ H Urine Glucose (UA) Negative Urine Ketones Negative Urine Blood Negative Urine Nitrite Negative Urine Bilirubin Negative Urine Urobilinogen 0.2 Ur Leukocyte Esterase Negative Urine WBC (Auto) 1 Urine RBC (Auto) 3 Urine Casts (Auto) 6 U Epithel Cells (Auto) 2.7 Urine Bacteria (Auto) 4.7 09/17/18 09/17/18 09/17/18 17:43 17:46 17:57 WBC RBC Hgb Hct MCV MCH MCHC RDW Plt Count MPV Absolute Neuts (auto) Neutrophils % Lymphocytes % Monocytes % Eosinophils % Basophils % Nucleated RBC % PT with INR INR PTT (Actin FS) VBG pH POC VBG pCO2 POC VBG pO2 VBG HCO3 VBG O2 Sat (Frida) VBG Base Excess Sodium Potassium Chloride Carbon Dioxide Anion Gap BUN Creatinine Est GFR (CKD-EPI)AfAm Est GFR (CKD-EPI)NonAf POC Glucometer 35 37 46 Random Glucose Hemoglobin A1c % Calcium Phosphorus Magnesium Total Bilirubin AST ALT Alkaline Phosphatase Troponin I B-Natriuretic Peptide Total Protein Albumin Triglycerides Cholesterol Total LDL Cholesterol HDL Cholesterol TSH Urine Color Urine Appearance Urine pH Ur Specific [place] Urine Protein Urine Glucose (UA) Urine Ketones Urine Blood Urine Nitrite Urine Bilirubin Urine Urobilinogen Ur Leukocyte Esterase Urine WBC (Auto) Urine RBC (Auto) Urine Casts (Auto) U Epithel Cells (Auto) Urine Bacteria (Auto) 09/17/18 09/17/18 09/18/18 18:22 22:01 05:56 WBC RBC Hgb Hct MCV MCH MCHC RDW Plt Count MPV Absolute Neuts (auto) Neutrophils % Lymphocytes % Monocytes % Eosinophils % Basophils % Nucleated RBC % PT with INR INR PTT (Actin FS) VBG pH POC VBG pCO2 POC VBG pO2 VBG HCO3 VBG O2 Sat (Frida) VBG Base Excess Sodium Potassium Chloride Carbon Dioxide Anion Gap BUN Creatinine Est GFR (CKD-EPI)AfAm Est GFR (CKD-EPI)NonAf POC Glucometer 187 128 Random Glucose Hemoglobin A1c % 6.9 H Calcium Phosphorus Magnesium Total Bilirubin AST ALT Alkaline Phosphatase Troponin I B-Natriuretic Peptide Total Protein Albumin Triglycerides Cholesterol Total LDL Cholesterol HDL Cholesterol TSH Urine Color Urine Appearance Urine pH Ur Specific [place] Urine Protein Urine Glucose (UA) Urine Ketones Urine Blood Urine Nitrite Urine Bilirubin Urine Urobilinogen Ur Leukocyte Esterase Urine WBC (Auto) Urine RBC (Auto) Urine Casts (Auto) U Epithel Cells (Auto) Urine Bacteria (Auto) 09/18/18 09/18/18 09/18/18 06:00 06:30 06:30 WBC 10.6 H RBC 2.88 L Hgb 8.7 L Hct 25.3 L MCV 87.9 MCH 30.1 MCHC 34.2 RDW 15.1 Plt Count 236 MPV 9.3 Absolute Neuts (auto) 8.9 H Neutrophils % 83.7 H Lymphocytes % 5.8 L D Monocytes % 9.8 Eosinophils % 0.4 Basophils % 0.3 Nucleated RBC % 0 PT with INR INR PTT (Actin FS) VBG pH POC VBG pCO2 POC VBG pO2 VBG HCO3 VBG O2 Sat (Firda) VBG Base Excess Sodium 136 Potassium 4.0 Chloride 101 Carbon Dioxide 24 Anion Gap 11 BUN 79.9 H Creatinine 3.2 H Est GFR (CKD-EPI)AfAm 21.56 Est GFR (CKD-EPI)NonAf 18.60 POC Glucometer 93 Random Glucose 87 Hemoglobin A1c % Calcium 8.0 L Phosphorus Magnesium Total Bilirubin 0.3 AST 28 ALT 20 Alkaline Phosphatase 113 Troponin I B-Natriuretic Peptide 5800.9 H Total Protein 6.0 L Albumin 2.4 L Triglycerides 145 Cholesterol 143 Total LDL Cholesterol 73 HDL Cholesterol 31 L TSH 1.61 Urine Color Urine Appearance Urine pH Ur Specific [place] Urine Protein Urine Glucose (UA) Urine Ketones Urine Blood Urine Nitrite Urine Bilirubin Urine Urobilinogen Ur Leukocyte Esterase Urine WBC (Auto) Urine RBC (Auto) Urine Casts (Auto) U Epithel Cells (Auto) Urine Bacteria (Auto) S1 s2 RRR Lungs decreased abd- soft, NT JVD+ edema+ PLAN Renal function slightly better- called for renal consult check sono kidneys IV lasix Change Levaquin to IV ceftriaxone Check urine antigens Check dauily weights Daily OOB Problem List - Problems (1) BRET (acute kidney injury) Code(s): N17.9 - ACUTE KIDNEY FAILURE, UNSPECIFIED (2) Acute and chronic respiratory failure Code(s): J96.20 - ACUTE AND CHR RESP FAILURE, UNSP W HYPOXIA OR HYPERCAPNIA (3) Savjr-uk-koobwcd kidney injury Code(s): N17.9 - ACUTE KIDNEY FAILURE, UNSPECIFIED; N18.9 - CHRONIC KIDNEY DISEASE, UNSPECIFIED (4) CHF exacerbation Code(s): I50.9 - HEART FAILURE, UNSPECIFIED (5) Diabetes Code(s): E11.9 - TYPE 2 DIABETES MELLITUS WITHOUT COMPLICATIONS
--- NOTE | 2018-09-18 12:25 | CONS ---
DATE OF CONSULTATION: 09/18/2018 PULMONARY CONSULTATION REFERRING PHYSICIAN: Edi Martinez MD HISTORY OF PRESENT ILLNESS: The patient is a 68-year-old male with a past medical history of lung CA, status post partial resection, right lung, 1984, postoperatively not treated with chemotherapy and/or RT, hypertension, hyperlipidemia, insulin-dependent diabetes mellitus, history of tobacco use, quit in 1984, admitted to [facility] with increasing shortness of breath. Patient states on the night prior to admission he was lying down and started noticing increasing shortness of breath. He also noted to have progressive dyspnea on exertion. He denied any complaints of chest pain, nausea, vomiting or diaphoresis. He did complain of a cough initially the past couple of days. Initially he had some dark sputum, then white sputum. Denied any fevers or chills. He also complained of increasing lower extremity edema. Apparently his Lasix dose has been changed for the past week or so and discontinued at which time he last took 2 days prior to admission. Then he started developing increasing lower extremity edema. In the ER he was felt to have acute congestive heart failure. He was started on IV Lasix with good clinical response and transferred out to the medical floor for further management. Chest x-ray performed which revealed bilateral interstitial alveolar infiltrates. He was also placed on empiric antibiotic therapy. He denies any fevers, chills. No recent travel. There is no history of DVT or PE in the past. He does have a history of occupational exposures many years ago. PAST MEDICAL HISTORY: Again includes insulin-dependent diabetes mellitus, hypertension, hyperlipidemia, history of femoral stents, history of peripheral vascular disease, lung CA, status post partial resection, right lung, history of recurrent UTIs. REVIEW OF SYSTEMS: Positive orthopnea. Positive dyspnea. No chest pain. No palpitations. Positive mild cough. No fever. No chills. No hemoptysis. No abdominal pain. Positive lower extremity edema. CURRENT MEDICATIONS: Include Cardura, Levaquin, Lovenox, Duo-Neb, labetalol, Norvasc, Apresoline, Lipitor, NovoLog, Lasix and Plavix. PHYSICAL EXAMINATION: General: The patient is an obese male, wide awake, alert, in no acute distress. Vital Signs: He is currently afebrile, blood pressure 181/80, respiratory rate is 20, O2 saturation is 98% on 3 L. HEENT: Normocephalic, atraumatic. Neck: Supple. Heart: Regular, S1 and S2. Chest: A few bibasilar crackles. Abdomen: Soft. Bowel sounds positive. Extremities: Bilateral lower extremity edema. LABORATORIES: WBC is 10.6, hemoglobin 8.7, hematocrit 25.3 with a platelet count of 236,000. INR is 1.11. Venous blood gas 7.38, PCO2 of 39, PO2 of 58, a bicarbonate of 22 and saturation of 89. BUN 79, creatinine 3.2. BNP is 5800. Chest x-ray: Cardiomegaly, slight tracheal deviation to the right, left perihilar infiltrate and large right effusion and infiltrate. IMPRESSION: 1. Dyspnea with bilateral infiltrates, likely acute on chronic congestive heart failure. 2. Acute on chronic kidney injury. 3. Cannot exclude possible underlying infectious process. 4. Anemia. 5. Hypertension. 6. Diabetes. 7. History of lung carcinoma, status post resection. PLAN: IV Lasix. Supplemental O2. Empiric antibiotics. Obtain CT scan of the chest as well as followup chest x-rays. Monitor electrolytes, renal function. Monitor CBC. Daily weights. Strict I's and O's. Thank you. GLENIS MARIE M.D. VICKI/[id number]
--- NOTE | 2018-09-18 12:48 | EKG ---
Test Reason : Blood Pressure : / mmHG Vent. Rate : 083 BPM Atrial Rate : 083 BPM P-R Int : 148 ms QRS Dur : 106 ms QT Int : 396 ms P-R-T Axes : 040 017 016 degrees QTc Int : 465 ms POOR DATA QUALITY, INTERPRETATION MAY BE ADVERSELY AFFECTED SINUS RHYTHM WITH OCCASIONAL PREMATURE VENTRICULAR COMPLEXES OTHERWISE NORMAL ECG WHEN COMPARED WITH ECG OF 27-SEP-2003 08:55, PREMATURE VENTRICULAR COMPLEXES ARE NOW PRESENT VENT. RATE HAS INCREASED BY 41 BPM Confirmed by Frank Vazquez MD ([id number]) on 09/18/2018 12:47:52 PM Referred By: Confirmed By:Frank Vazquez MD
[2018-09-18] MEDS ORDERED: PT OWN MED DRAWER 7, Y5N ONE (13:57)
[2018-09-18] MEDS: amLODIPine BESYLATE 10 MG TABLET (FP) PO SCH (14:07)
[2018-09-18] MEDS: DOXAZOSIN MESYLATE 4 MG TABLET PO SCH (14:16)
[2018-09-18] MEDS: ATORVASTATIN CA 20 MG TABLET (FP) PO SCH (21:47)
[2018-09-18] MEDS: INSULIN (LEVEMIR) 100 UNITS/ML UNITS SQ SCH (21:52)
[2018-09-19] MEDS ORDERED: METHADONE HCL 40 MG DISPERSABLE TABLET ONE (05:28)
[2018-09-19] MEDS ORDERED: METHADONE HCL 10 MG TABLET ONE (05:29)
[2018-09-19] MEDS: METHADONE 40 MG, METHADONE 20 MG PO SCH (05:49)
[2018-09-19] MEDS ORDERED: METHADONE HCL 40 MG DISPERSABLE TABLET PO SCH (06:00)
[2018-09-19] MEDS: INSULIN SLIDING SCALE (NOVOLOG) 1 VIAL SQ SCH ×5 (07:01→22:16)
[2018-09-19 07:54] LABS: BASO % 0.2 % (0-2.0); EOS % 0.8 % (0-4.5); HEMATOCRIT 24.1 % (35.4-49); HEMOGLOBIN 8.1 GM/dL (11.7-16.9); LYMPH % 8.2 % (8-40); MCH 29.5 pg (25.7-33.7); MCHC 33.7 g/dl (32.0-35.9); MEAN CELL VOLUME 87.5 fl (80-96); MONO % 11.1 % (3.8-10.2); NEUT % 79.7 % (42.8-82.8); PLATELET COUNT 243 K/MM3 (134-434); RBC 2.75 M/mm3 (4.00-5.60); RDW 14.5 % (11.9-15.9); WHITE BLOOD COUNT 9.5 K/mm3 (4.0-10.0)
[2018-09-19 09:21] LABS: ALBUMIN 2.4 g/dl (3.4-5.0); BILIRUBIN,TOTAL 0.4 mg/dL (0.2-1); BLOOD UREA NITROGEN 94.8 mg/dL (7-18); CALCIUM 8.1 mg/dL (8.5-10.1); CREATININE 3.7 mg/dL (0.55-1.3); MAGNESIUM 2.3 mg/dL (1.8-2.4); PHOSPHOROUS 5.7 mg/dL (2.5-4.9); POTASSIUM 4.1 mmol/L (3.5-5.1); TOT PROT 5.8 g/dl (6.4-8.2)
[2018-09-19] MEDS ORDERED: LABETALOL HCL 100 MG TABLET (FP) ONE (10:28)
[2018-09-19] MEDS ORDERED: LABETALOL HCL 200 MG TABLET (FP) ONE (10:28)
[2018-09-19] MEDS ORDERED: cefTRIAXone SODIUM 1 GM VIAL ONE (10:29)
[2018-09-19] MEDS ORDERED: DEXTROSE 5%-WATER - 50 ML IVPB ONE (10:29)
[2018-09-19] MEDS: ENOXAPARIN NA (PORCINE) 30 MG/0.3 ML DISP.SYRIN SQ SCH (10:32)
[2018-09-19] MEDS: CEFTRIAXONE 1 GM in DEXTROSE 5%-WATER - 50 ML IVPB SCH (10:32)
[2018-09-19] MEDS: LABETALOL HCL 100 MG, LABETALOL HCL 200 MG PO SCH (10:33)
[2018-09-19] MEDS: CLOPIDOGREL BISULFATE 75 MG TABLET (FP) PO SCH (10:34)
[2018-09-19] MEDS: amLODIPine BESYLATE 10 MG TABLET (FP) PO SCH (10:34)
[2018-09-19] MEDS: FUROSEMIDE 100 MG/10 ML INJECTABLE VIAL IVPB SCH (10:34)
[2018-09-19] MEDS: hydrALAZINE HCL 50 MG TABLET (FP) PO SCH ×3 (10:34→22:16)
--- NOTE | 2018-09-19 10:44 | PN ---
Progress Note (short form) - Note Progress Note: s: edema, sob resolved. no chest pain, palps, dizziness Current Medications Albuterol/Ipratropium (Duoneb -) 1 amp NEB Q6H PRN PRN Reason: SHORTNESS OF BREATH Last Admin: 09/18/18 21:05 Dose: 1 amp Amlodipine Besylate (Norvasc -) 10 mg PO DAILY [facility] Last Admin: 09/18/18 14:07 Dose: 10 mg Atorvastatin Calcium (Lipitor -) 20 mg PO [facility] Last Admin: 09/18/18 21:47 Dose: 20 mg Clopidogrel Bisulfate (Plavix -) 75 mg PO DAILY [facility] Last Admin: 09/18/18 09:50 Dose: Not Given Doxazosin Mesylate (Cardura -) 4 mg PO DAILY [facility] Last Admin: 09/18/18 14:16 Dose: 4 mg Enoxaparin Sodium (Lovenox -) 30 mg SQ DAILY [facility] Last Admin: 09/18/18 09:50 Dose: Not Given Furosemide (Lasix Injection -) 40 mg IVPB DAILY [facility] Last Admin: 09/18/18 09:49 Dose: Not Given Hydralazine HCl (Apresoline -) 100 mg PO DAILY [facility] Last Admin: 09/18/18 09:49 Dose: Not Given Ceftriaxone Sodium 1 gm/ (Dextrose) 50 mls @ 100 mls/hr IVPB DAILY [facility] Insulin Aspart (Novolog Vial Sliding Scale -) 1 vial SQ [facility]; Protocol Last Admin: 09/19/18 07:01 Dose: Not Given Insulin Detemir (Levemir Vial) 10 units SQ [facility] Last Admin: 09/18/18 21:52 Dose: 10 unit Labetalol HCl (Normodyne -) 400 mg PO BID [facility] Methadone HCl 40 mg/ Methadone (HCl 20 mg) 60 mg PO DAILY@0600 [facility] Last Admin: 09/19/18 05:49 Dose: 60 mg Vital Signs Period Temp Pulse Resp BP Sys/Bansal Pulse Ox Last 24 Hr 98.0 F-98.9 F 68-76 20-20 141-182/63-80 Constitutional: Yes: Well Nourished, No Distress, Calm Eyes: Yes: Conjunctiva Clear, EOM Intact HENT: Yes: Atraumatic, Normocephalic Neck: Yes: Supple, Trachea Midline Respiratory: Yes: Regular, Rales, Rhonchi Gastrointestinal: Yes: Normal Bowel Sounds, Soft Cardiovascular: Yes: Regular Rate and Rhythm JVD: No Carotid Bruit: No PMI: Non-Displaced Heart Sounds: Yes: S1, S2 Musculoskeletal: No: Back Pain Extremities: No: Cold Edema: Yes Edema: LLE: 1+, RLE: 1+ Peripheral Pulses WNL: Yes Peripheral Pulses: 2+ Left Doralis Pedis, 2+ Right Dorsalis Pedis Integumentary: No: Jaundice Neurological: Yes: Alert, Oriented Psychiatric: No: Agitated Assessment/Plan mibi 2016 no ischemia, nl EF EKG: sinus, PVC, no ischemic changes echo 09/2018 nl LV function, mild MAC, tr MR, tr AR, RVSP 32 mmHg tele: sinus CXR: L perihilar infiltrate, large R effusion with R infiltrate, congestion 68M h/o HTN, DM, HLD, PAD s/p femoral stent, prior smoker, R sided lung ca s/p partial resection p/w shortness of breath shortness of breath, acute diastolic CHF exacerbation - likely multifactorial - h/o lung ca s/p resection, findings concerning for PNA - abx, nebs per primary, pulm - elevated BNP with congestion on CXR, likely component of HF - nl EF in 2016 - echo nl LV function - sob improved, Cr rising, edema resolved - hold lasix - monitor daily weights, lytes, Cr HTN - holding home diuretic, valsartan - not well controlled - increase labetolol, change hydralazine to BID, continue amlodipine HLD - cont statin PAD - cont statin, aspirin DM - manage per primary BRET on CKD -renal following
--- NOTE | 2018-09-19 10:45 | PN ---
Progress Note, Physician History of Present Illness: pulmonary alert,feeling better less dyspneic,less cough - Current Medication List Current Medications: Active Medications Albuterol/Ipratropium (Duoneb -) 1 amp NEB Q6H PRN PRN Reason: SHORTNESS OF BREATH Last Admin: 09/18/18 21:05 Dose: 1 amp Amlodipine Besylate (Norvasc -) 10 mg PO DAILY [facility] Last Admin: 09/18/18 14:07 Dose: 10 mg Atorvastatin Calcium (Lipitor -) 20 mg PO [facility] Last Admin: 09/18/18 21:47 Dose: 20 mg Clopidogrel Bisulfate (Plavix -) 75 mg PO DAILY [facility] Last Admin: 09/18/18 09:50 Dose: Not Given Doxazosin Mesylate (Cardura -) 4 mg PO DAILY [facility] Last Admin: 09/18/18 14:16 Dose: 4 mg Enoxaparin Sodium (Lovenox -) 30 mg SQ DAILY [facility] Last Admin: 09/18/18 09:50 Dose: Not Given Furosemide (Lasix Injection -) 40 mg IVPB DAILY [facility] Last Admin: 09/18/18 09:49 Dose: Not Given Hydralazine HCl (Apresoline -) 100 mg PO DAILY [facility] Last Admin: 09/18/18 09:49 Dose: Not Given Ceftriaxone Sodium 1 gm/ (Dextrose) 50 mls @ 100 mls/hr IVPB DAILY [facility] Insulin Aspart (Novolog Vial Sliding Scale -) 1 vial SQ [facility]; Protocol Last Admin: 09/19/18 07:01 Dose: Not Given Insulin Detemir (Levemir Vial) 10 units SQ [facility] Last Admin: 09/18/18 21:52 Dose: 10 unit Labetalol HCl (Normodyne -) 400 mg PO BID [facility] Methadone HCl 40 mg/ Methadone (HCl 20 mg) 60 mg PO DAILY@0600 [facility] Last Admin: 09/19/18 05:49 Dose: 60 mg - Objective Vital Signs: Vital Signs Temperature 98.5 F 09/19/18 06:00 Pulse Rate 71 09/19/18 06:00 Respiratory Rate 20 09/19/18 06:00 Blood Pressure 179/74 H 09/19/18 06:00 O2 Sat by Pulse Oximetry (%) 98 09/17/18 21:00 Constitutional: Yes: Well Nourished, Calm Eyes: Yes: WNL HENT: Yes: WNL Neck: Yes: WNL Cardiovascular: Yes: Regular Rate and Rhythm, S1, S2 Respiratory: Yes: Rales (bibasilar rales) Gastrointestinal: Yes: Normal Bowel Sounds, Soft Extremities: Yes: WNL Edema: No Labs: CBC, BMP 09/19/18 05:39 09/19/18 05:39 INR, PTT INR 1.11 (0.83-1.09) H 09/17/18 12:23 Problem List - Problems (1) Rhite-bv-vaykqit kidney injury Code(s): N17.9 - ACUTE KIDNEY FAILURE, UNSPECIFIED; N18.9 - CHRONIC KIDNEY DISEASE, UNSPECIFIED (2) CHF exacerbation Code(s): I50.9 - HEART FAILURE, UNSPECIFIED (3) Chronic renal insufficiency, stage III (moderate) Code(s): N18.3 - CHRONIC KIDNEY DISEASE, STAGE 3 (MODERATE) (4) Diabetes Code(s): E11.9 - TYPE 2 DIABETES MELLITUS WITHOUT COMPLICATIONS (5) History of lung cancer Code(s): Z85.118 - PERSONAL HISTORY OF MALIGNANT NEOPLASM OF BRONCHUS AND LUNG (6) Normocytic anemia Code(s): D64.9 - ANEMIA, UNSPECIFIED (7) Dyspnea Code(s): R06.00 - DYSPNEA, UNSPECIFIED Assessment/Plan IMP DYSPNEA BILATERAL INFILTRATES ACUTE ON CHRONIC CHF R/O PNEUMONIA ACUTE ON CHRONIC KIDNEY INJURY ANEMIA HTN DM H/O LUNG CA S/P RESECTION 1984 PLAN CONTINUE IV LASIX O2 EMPIRIC ABX F/U CHEST X-RAYS CHEST CT PENDING MONITOR LYTES,RENAL FUNCTION MONITOR CBC DAILY WT STRICT I+Os DR MARIE Problem List - Problems (1) [id number] kidney injury Code(s): N17.9 - ACUTE KIDNEY FAILURE, UNSPECIFIED; N18.9 - CHRONIC KIDNEY DISEASE, UNSPECIFIED (2) CHF exacerbation Code(s): I50.9 - HEART FAILURE, UNSPECIFIED (3) Chronic renal insufficiency, stage III (moderate) Code(s): N18.3 - CHRONIC KIDNEY DISEASE, STAGE 3 (MODERATE) (4) Diabetes Code(s): E11.9 - TYPE 2 DIABETES MELLITUS WITHOUT COMPLICATIONS (5) History of lung cancer Code(s): Z85.118 - PERSONAL HISTORY OF MALIGNANT NEOPLASM OF BRONCHUS AND LUNG (6) Normocytic anemia Code(s): D64.9 - ANEMIA, UNSPECIFIED (7) Dyspnea Code(s): R06.00 - DYSPNEA, UNSPECIFIED
--- NOTE | 2018-09-19 11:07 | PN ---
Progress Note (short form) - Note Progress Note: feels well no complaints Vital Signs - 24 hr 09/18/18 09/18/18 09/18/18 14:00 17:00 21:00 Temperature 98.5 F 98.0 F 98.9 F Pulse Rate 75 76 73 Respiratory 20 20 20 Rate Blood Pressure 147/75 141/80 182/72 H 09/19/18 09/19/18 01:09 06:00 Temperature 98.7 F 98.5 F Pulse Rate 68 71 Respiratory 20 20 Rate Blood Pressure 174/63 H 179/74 H Current Medications Generic Name Dose Route Start Last Admin Trade Name Freq PRN Reason Stop Dose Admin Albuterol/Ipratropium 1 amp 09/17/18 14:35 09/18/18 21:05 Duoneb - NEB 1 amp Q6H PRN Administration SHORTNESS OF BREATH Amlodipine Besylate 10 mg 09/18/18 10:00 09/18/18 14:07 Norvasc - PO 10 mg DAILY [facility] Administration Atorvastatin Calcium 20 mg 09/17/18 22:00 09/18/18 21:47 Lipitor - PO 20 mg HS [facility] Administration Clopidogrel Bisulfate 75 mg 09/18/18 10:00 09/18/18 09:50 Plavix - PO Not Given DAILY [facility] Doxazosin Mesylate 4 mg 09/18/18 10:00 09/18/18 14:16 Cardura - PO 4 mg DAILY [facility] Administration Enoxaparin Sodium 30 mg 09/17/18 18:00 09/18/18 09:50 Lovenox - SQ Not Given DAILY [facility] Hydralazine HCl 100 mg 09/19/18 22:00 Apresoline - PO BID [facility] Ceftriaxone Sodium 1 gm/ 50 mls @ 100 mls/hr 09/19/18 10:00 Dextrose IVPB DAILY [facility] Insulin Aspart 1 vial 09/17/18 16:30 09/19/18 07:01 Novolog Vial Sliding Scale - SQ Not Given [facility] Protocol Insulin Detemir 10 units 09/17/18 22:00 09/18/18 21:52 Levemir Vial SQ 10 unit HS [facility] Administration Labetalol HCl 400 mg 09/19/18 10:40 Normodyne - PO BID [facility] Methadone HCl 40 mg/ Methadone 60 mg 09/19/18 06:00 09/19/18 05:49 HCl 20 mg PO 60 mg DAILY@0600 [facility] Administration Laboratory Results - last 24 hr 09/18/18 09/18/18 09/18/18 12:01 17:51 21:49 WBC RBC Hgb Hct MCV MCH MCHC RDW Plt Count MPV Absolute Neuts (auto) Neutrophils % Lymphocytes % Monocytes % Eosinophils % Basophils % Nucleated RBC % Sodium Potassium Chloride Carbon Dioxide Anion Gap BUN Creatinine Est GFR (CKD-EPI)AfAm Est GFR (CKD-EPI)NonAf POC Glucometer 236 286 291 Random Glucose Calcium Phosphorus Magnesium Total Bilirubin AST ALT Alkaline Phosphatase Total Protein Albumin 09/19/18 09/19/18 09/19/18 05:39 05:39 05:51 WBC 9.5 RBC 2.75 L Hgb 8.1 L Hct 24.1 L MCV 87.5 MCH 29.5 MCHC 33.7 RDW 14.5 Plt Count 243 MPV 9.0 Absolute Neuts (auto) 7.5 Neutrophils % 79.7 Lymphocytes % 8.2 D Monocytes % 11.1 H Eosinophils % 0.8 D Basophils % 0.2 Nucleated RBC % 0 Sodium 136 Potassium 4.1 Chloride 100 Carbon Dioxide 26 Anion Gap 10 BUN 94.8 H Creatinine 3.7 H Est GFR (CKD-EPI)AfAm 18.09 Est GFR (CKD-EPI)NonAf 15.61 POC Glucometer 141 Random Glucose 129 H Calcium 8.1 L Phosphorus 5.7 H Magnesium 2.3 Total Bilirubin 0.4 AST 31 ALT 22 Alkaline Phosphatase 123 H Total Protein 5.8 L Albumin 2.4 L S1 s2 RRR Lungs decreased abd- soft, NT JVD+ edema+ PLAN CHF-- better, holding lasix due to elevated creatinine Renal function -- creatinine worsening-- renal sono noted renal eval noted has splenic lesion-- can not do contrast imaging due to decreased renal function Pneumonia-- on iv ceftriaxone Check urine antigens Check daily weights Daily OOB check pre and post o2 sat Problem List - Problems (1) BRET (acute kidney injury) Code(s): N17.9 - ACUTE KIDNEY FAILURE, UNSPECIFIED (2) Acute and chronic respiratory failure Code(s): J96.20 - ACUTE AND CHR RESP FAILURE, UNSP W HYPOXIA OR HYPERCAPNIA (3) Jvaps-kh-gfujwbt kidney injury Code(s): N17.9 - ACUTE KIDNEY FAILURE, UNSPECIFIED; N18.9 - CHRONIC KIDNEY DISEASE, UNSPECIFIED (4) CHF exacerbation Code(s): I50.9 - HEART FAILURE, UNSPECIFIED (5) Diabetes Code(s): E11.9 - TYPE 2 DIABETES MELLITUS WITHOUT COMPLICATIONS
[2018-09-19] MEDS ORDERED: PT OWN MED DRAWER 7, Y5N ONE (11:43)
[2018-09-19] MEDS: LABETALOL HCL 200 MG TABLET (FP) PO SCH ×2 (11:44→22:16)
[2018-09-19] MEDS: DOXAZOSIN MESYLATE 4 MG TABLET PO SCH (11:48)
[2018-09-19] MEDS ORDERED: INSULIN (NOVOLOG) ASPART 100 UNITS/ML 10ML VIAL ONE (13:24)
--- NOTE | 2018-09-19 18:01 | PN ---
Progress Note (short form) - Note Progress Note: Renal follow up for BRET Pt seen and examined at the bedside reports feeling a lot better but not yet at baseline no cough, chest pain, abd pain, N/V/D making urine diuretics held today Vital Signs Temperature 97.8 F 09/19/18 14:00 Pulse Rate 67 09/19/18 14:08 Respiratory Rate 20 09/19/18 14:00 Blood Pressure 112/58 L 09/19/18 14:00 O2 Sat by Pulse Oximetry (%) 95 09/19/18 14:08 Intake & Output 09/16/18 09/17/18 09/18/18 09/19/18 23:59 23:59 23:59 23:59 Intake Total 110 260 0 Balance 110 260 0 Weight 86.183 kg 87.725 kg NAD RRR, no M/R CTA, dec BS right lung bases, no overt rales soft, obese NT/ND + edema in LE CXR- left perihilar infiltrate, large right effusion with infiltrate ECHO- normal LV/RV function, trace MR CBC, BMP 09/19/18 05:39 09/19/18 05:39 Current Medications Albuterol/Ipratropium (Duoneb -) 1 amp NEB Q6H PRN PRN Reason: SHORTNESS OF BREATH Last Admin: 09/18/18 21:05 Dose: 1 amp Amlodipine Besylate (Norvasc -) 10 mg PO DAILY [facility] Last Admin: 09/19/18 10:34 Dose: 10 mg Atorvastatin Calcium (Lipitor -) 20 mg PO HS [facility] Last Admin: 09/18/18 21:47 Dose: 20 mg Clopidogrel Bisulfate (Plavix -) 75 mg PO DAILY [facility] Last Admin: 09/19/18 10:34 Dose: 75 mg Doxazosin Mesylate (Cardura -) 4 mg PO DAILY [facility] Last Admin: 09/19/18 11:48 Dose: 4 mg Enoxaparin Sodium (Lovenox -) 30 mg SQ DAILY [facility] Last Admin: 09/19/18 10:32 Dose: 30 mg Hydralazine HCl (Apresoline -) 100 mg PO BID [facility] Last Admin: 09/19/18 11:48 Dose: 100 mg Ceftriaxone Sodium 1 gm/ (Dextrose) 50 mls @ 100 mls/hr IVPB DAILY [facility] Last Admin: 09/19/18 10:32 Dose: 100 mls/hr Insulin Aspart (Novolog Vial Sliding Scale -) 1 vial SQ [facility]; Protocol Last Admin: 09/19/18 13:00 Dose: 3 units Insulin Detemir (Levemir Vial) 10 units SQ HS [facility] Last Admin: 09/18/18 21:52 Dose: 10 unit Labetalol HCl (Normodyne -) 400 mg PO BID [facility] Last Admin: 09/19/18 11:44 Dose: 400 mg Methadone HCl 40 mg/ Methadone (HCl 20 mg) 60 mg PO DAILY@0600 [facility] Last Admin: 09/19/18 05:49 Dose: 60 mg 68 year old gentleman with hx of of hypertension, DM on insulin, PVD s/ p Le stents, BPH, Hx of Lung cancer s/p resection who presented with SOB and noted to have BUN/Cr of 79/3.2. #Acute shortness of breath form diastolic HF vs. PNA #Acute on chronic renal insufficiency from cardio-renal syndrome vs. normotensive ATN vs. AIN vs. obstruction in urine flow vs. acute GN (on Hydralazine r/o drug induced lupus) #Anemia #Hypertension #BPH Cr alison in setting of IV diuretics volume status appears improved now can hold diuretics today and consider starting lower maintenance dose tomorrow Renal imgaing showed no obstruction but did show lesion on spleen, would need CT with contrast to evalulate but should wait until renal function is improved Trend daily weights hold LUKE/ARB and potassium sparing diuretics at this time Check CHICHI to r/o drug induced lupus as pt was on hydralazine BP is above goal, continue labetalol, amlodipine and titrate to goal BP < 140/90 continue insulin as per primary continue marcia Thank you Rah follow Dariusz Iniguez DO
[2018-09-19] MEDS: ALBUTEROL SO4 2.5/IPRATROPIUM 0.5 INH SOL 3 ML VIAL.NEB. NEB PRN (20:30)
[2018-09-19] MEDS: ATORVASTATIN CA 20 MG TABLET (FP) PO SCH (22:15)
[2018-09-19] MEDS: INSULIN (LEVEMIR) 100 UNITS/ML UNITS SQ SCH (22:16)
[2018-09-20] MEDS ORDERED: METHADONE HCL 40 MG DISPERSABLE TABLET ONE (06:24)
[2018-09-20] MEDS ORDERED: METHADONE HCL 10 MG TABLET ONE (06:24)
[2018-09-20] MEDS: METHADONE 40 MG, METHADONE 20 MG PO SCH (06:43)
[2018-09-20] MEDS: INSULIN SLIDING SCALE (NOVOLOG) 1 VIAL SQ SCH ×3 (06:44→21:31)
[2018-09-20] MEDS: ALBUTEROL SO4 2.5/IPRATROPIUM 0.5 INH SOL 3 ML VIAL.NEB. NEB PRN (07:36)
[2018-09-20 09:00] LABS: CALCIUM 8.1 mg/dL (8.5-10.1); CREATININE 3.9 mg/dL (0.55-1.3); POTASSIUM 4.1 mmol/L (3.5-5.1)
[2018-09-20 09:07] LABS: BLOOD UREA NITROGEN 106.2 mg/dL (7-18)
--- NOTE | 2018-09-20 10:55 | PN ---
Progress Note (short form) - Note Progress Note: has some SOB qualified for O2 Vital Signs - 24 hr 09/19/18 09/19/18 09/20/18 21:00 22:00 02:00 Temperature 98.3 F 98.3 F Pulse Rate 71 66 Respiratory 20 20 Rate Blood Pressure 161/72 142/69 O2 Sat by Pulse 98 Oximetry (%) 09/20/18 09/20/18 06:00 09:00 Temperature 98.4 F Pulse Rate 70 Respiratory 20 Rate Blood Pressure 151/72 O2 Sat by Pulse 90 L Oximetry (%) Current Medications Generic Name Dose Route Start Last Admin Trade Name Freq PRN Reason Stop Dose Admin Albuterol/Ipratropium 1 amp 09/17/18 14:35 09/20/18 07:36 Duoneb - NEB 1 amp Q6H PRN Administration SHORTNESS OF BREATH Amlodipine Besylate 10 mg 09/18/18 10:00 09/20/18 12:22 Norvasc - PO 10 mg DAILY [facility] Administration Artificial Tears 2 drop 09/20/18 16:13 Artificial Tears OU Q8H PRN DRY EYES Atorvastatin Calcium 20 mg 09/17/18 22:00 09/19/18 22:15 Lipitor - PO 20 mg HS [facility] Administration Clopidogrel Bisulfate 75 mg 09/18/18 10:00 09/20/18 12:22 Plavix - PO 75 mg DAILY [facility] Administration Doxazosin Mesylate 4 mg 09/18/18 10:00 09/20/18 12:22 Cardura - PO 4 mg DAILY [facility] Administration Enoxaparin Sodium 30 mg 09/17/18 18:00 09/20/18 12:22 Lovenox - SQ 30 mg DAILY [facility] Administration Hydralazine HCl 100 mg 09/19/18 22:00 09/20/18 12:22 Apresoline - PO 100 mg BID [facility] Administration Ceftriaxone Sodium 1 gm/ 50 mls @ 100 mls/hr 09/19/18 10:00 09/20/18 12:21 Dextrose IVPB 100 mls/hr DAILY [facility] Administration Insulin Aspart 1 vial 09/17/18 16:30 09/20/18 06:44 Novolog Vial Sliding Scale - SQ Not Given [facility] Protocol Insulin Detemir 10 units 09/17/18 22:00 09/19/18 22:16 Levemir Vial SQ 10 unit HS [facility] Administration Labetalol HCl 400 mg 06/12/19 10:40 09/20/18 12:22 Normodyne - PO 400 mg BID [facility] Administration Methadone HCl 40 mg/ Methadone 60 mg 09/19/18 06:00 09/20/18 06:43 HCl 20 mg PO 60 mg DAILY@0600 [facility] Administration Laboratory Results - last 24 hr 09/19/18 09/19/18 09/20/18 17:50 22:12 06:13 Sodium 139 Potassium 4.1 Chloride 103 Carbon Dioxide 24 Anion Gap 12 BUN 106.2 H* Creatinine 3.9 H Est GFR (CKD-EPI)AfAm 16.98 Est GFR (CKD-EPI)NonAf 14.65 POC Glucometer 178 191 Random Glucose 106 Calcium 8.1 L Ur Random Creatinine U Random Total Protein Ur Random Urea Nitrogn 09/20/18 09/20/18 09/20/18 06:16 07:00 07:00 Sodium Potassium Chloride Carbon Dioxide Anion Gap BUN Creatinine Est GFR (CKD-EPI)AfAm Est GFR (CKD-EPI)NonAf POC Glucometer 108 Random Glucose Calcium Ur Random Creatinine U Random Total Protein 219.6 H Ur Random Urea Nitrogn 617 09/20/18 09/20/18 07:00 12:25 Sodium Potassium Chloride Carbon Dioxide Anion Gap BUN Creatinine Est GFR (CKD-EPI)AfAm Est GFR (CKD-EPI)NonAf POC Glucometer 154 Random Glucose Calcium Ur Random Creatinine 67.0 U Random Total Protein Ur Random Urea Nitrogn S1 s2 RRR Lungs decreased abd- soft, NT JVD+ edema+ PLAN CHF--clinically better, holding lasix due to elevated creatinine Renal function -- creatinine worsening-- renal sono noted renal eval noted has splenic lesion-- can not do contrast imaging due to decreased renal function Pneumonia-- on iv ceftriaxone monitor renal function Problem List - Problems (1) BRET (acute kidney injury) Code(s): N17.9 - ACUTE KIDNEY FAILURE, UNSPECIFIED (2) Acute and chronic respiratory failure Code(s): J96.20 - ACUTE AND CHR RESP FAILURE, UNSP W HYPOXIA OR HYPERCAPNIA (3) Gxyuv-lj-ckshohn kidney injury Code(s): N17.9 - ACUTE KIDNEY FAILURE, UNSPECIFIED; N18.9 - CHRONIC KIDNEY DISEASE, UNSPECIFIED (4) CHF exacerbation Code(s): I50.9 - HEART FAILURE, UNSPECIFIED (5) Diabetes Code(s): E11.9 - TYPE 2 DIABETES MELLITUS WITHOUT COMPLICATIONS
--- NOTE | 2018-09-20 11:37 | PN ---
Progress Note (short form) - Note Progress Note: s:sob resolved. no chest pain, palps, dizziness Current Medications Generic Name Dose Route Start Last Admin Trade Name Freq PRN Reason Stop Dose Admin Albuterol/Ipratropium 1 amp 09/17/18 14:35 09/20/18 07:36 Duoneb - NEB 1 amp Q6H PRN Administration SHORTNESS OF BREATH Amlodipine Besylate 10 mg 09/18/18 10:00 09/19/18 10:34 Norvasc - PO 10 mg DAILY G[facility] Administration Atorvastatin Calcium 20 mg 09/17/18 22:00 09/19/18 22:15 Lipitor - PO 20 mg HS [facility] Administration Clopidogrel Bisulfate 75 mg 09/18/18 10:00 09/19/18 10:34 Plavix - PO 75 mg DAILY [facility] Administration Doxazosin Mesylate 4 mg 09/18/18 10:00 09/19/18 11:48 Cardura - PO 4 mg DAILY [facility] Administration Enoxaparin Sodium 30 mg 09/17/18 18:00 09/19/18 10:32 Lovenox - SQ 30 mg DAILY [facility] Administration Hydralazine HCl 100 mg 09/19/18 22:00 09/19/18 22:16 Apresoline - PO 100 mg BID [facility] Administration Ceftriaxone Sodium 1 gm/ 50 mls @ 100 mls/hr 09/19/18 10:00 09/19/18 10:32 Dextrose IVPB 100 mls/hr DAILY [facility] Administration Insulin Aspart 1 vial 09/17/18 16:30 09/20/18 06:44 Novolog Vial Sliding Scale - SQ Not Given [facility] Protocol Insulin Detemir 10 units 09/17/18 22:00 09/19/18 22:16 Levemir Vial SQ 10 unit HS [facility] Administration Labetalol HCl 400 mg 09/19/18 10:40 09/19/18 22:16 Normodyne - PO 400 mg BID [facility] Administration Methadone HCl 40 mg/ Methadone 60 mg 09/19/18 06:00 09/20/18 06:43 HCl 20 mg PO 60 mg DAILY@0600 [facility] Administration Vital Signs Period Temp Pulse Resp BP Sys/Bansal Pulse Ox Last 24 Hr 97.8 F-98.4 F 62-72 20-20 112-161/58-81 90-98 Constitutional: Yes: Well Nourished, No Distress, Calm Eyes: Yes: Conjunctiva Clear Neck: Yes: Supple, Trachea Midline Respiratory: Yes: Regular, +Rhonchi Gastrointestinal: Yes: Normal Bowel Sounds, Soft Cardiovascular: Yes: Regular Rate and Rhythm JVD: No Heart Sounds: Yes: S1, S2 Musculoskeletal: No: Back Pain Extremities: No: Cold Edema: trace le edema bl Integumentary: No: Jaundice diaphoresis Neurological: Yes: Alert, Oriented Psychiatric: No: Agitated Laboratory Last Values WBC 9.5 K/mm3 (4.0-10.0) 09/19/18 05:39 RBC 2.75 M/mm3 (4.00-5.60) L 09/19/18 05:39 Hgb 8.1 GM/dL (11.7-16.9) L 09/19/18 05:39 Hct 24.1 % (35.4-49) L 09/19/18 05:39 MCV 87.5 fl (80-96) 09/19/18 05:39 MCH 29.5 pg (25.7-33.7) 09/19/18 05:39 MCHC 33.7 g/dl (32.0-35.9) 09/19/18 05:39 RDW 14.5 % (11.9-15.9) 09/19/18 05:39 Plt Count 243 K/MM3 (134-434) 09/19/18 05:39 MPV 9.0 fl (7.5-11.1) 09/19/18 05:39 Absolute Neuts (auto) 7.5 K/mm3 (1.5-8.0) 09/19/18 05:39 Neutrophils % 79.7 % (42.8-82.8) 09/19/18 05:39 Lymphocytes % 8.2 % (8-40) D 09/19/18 05:39 Monocytes % 11.1 % (3.8-10.2) H 09/19/18 05:39 Eosinophils % 0.8 % (0-4.5) D 09/19/18 05:39 Basophils % 0.2 % (0-2.0) 09/19/18 05:39 Nucleated RBC % 0 % (0-0) 09/19/18 05:39 PT with INR 13.10 SEC (9.7-13.0) H 09/17/18 12:23 INR 1.11 (0.83-1.09) H 09/17/18 12:23 PTT (Actin FS) 29.6 SECONDS (25.2-36.5) 09/17/18 12:23 VBG pH 7.38 (7.31-7.41) 09/17/18 13:45 POC VBG pCO2 39.5 mmHg (41-51) L 09/17/18 13:45 POC VBG pO2 58.6 mmHg (30-40) H 09/17/18 13:45 VBG HCO3 22.8 mmol/L (23-29) L 09/17/18 13:45 VBG O2 Sat (Frida) 89.1 % (70-80) H 09/17/18 13:45 VBG Base Excess -1.6 meq/l (-2-2) 09/17/18 13:45 Sodium 139 mmol/L (136-145) 09/20/18 06:13 Potassium 4.1 mmol/L (3.5-5.1) 09/20/18 06:13 Chloride 103 mmol/L (98-107) 09/20/18 06:13 Carbon Dioxide 24 mmol/L (21-32) 09/20/18 06:13 Anion Gap 12 MMOL/L (8-16) 09/20/18 06:13 BUN 106.2 mg/dL (7-18) H* 09/20/18 06:13 Creatinine 3.9 mg/dL (0.55-1.3) H 09/20/18 06:13 Est GFR (CKD-EPI)AfAm 16.98 09/20/18 06:13 Est GFR (CKD-EPI)NonAf 14.65 09/20/18 06:13 POC Glucometer 108 UNITS (80-120) 09/20/18 06:16 Random Glucose 106 mg/dL (74-106) 09/20/18 06:13 Hemoglobin A1c % 6.9 % (4.2-6.3) H 09/18/18 05:56 Calcium 8.1 mg/dL (8.5-10.1) L 09/20/18 06:13 Phosphorus 5.7 mg/dL (2.5-4.9) H 09/19/18 05:39 Magnesium 2.3 mg/dL (1.8-2.4) 09/19/18 05:39 Total Bilirubin 0.4 mg/dL (0.2-1) 09/19/18 05:39 AST 31 U/L (15-37) 09/19/18 05:39 ALT 22 U/L (13-61) 09/19/18 05:39 Alkaline Phosphatase 123 U/L (45-117) H 09/19/18 05:39 Troponin I < 0.02 ng/ml (0.00-0.05) 09/17/18 12:23 B-Natriuretic Peptide 5800.9 pg/ml (5-125) H 09/18/18 06:30 Total Protein 5.8 g/dl (6.4-8.2) L 09/19/18 05:39 Albumin 2.4 g/dl (3.4-5.0) L 09/19/18 05:39 Triglycerides 145 mg/dL (0-150) 09/18/18 06:30 Cholesterol 143 mg/dL (50-200) 09/18/18 06:30 Total LDL Cholesterol 73 mg/dL (5-100) 09/18/18 06:30 HDL Cholesterol 31 mg/dL (40-60) L 09/18/18 06:30 TSH 1.61 uIU/ml (0.358-3.74) 09/18/18 06:30 Urine Color Yellow 09/17/18 14:20 Urine Appearance Clear 09/17/18 14:20 Urine pH 5.0 (5.0-8.0) 09/17/18 14:20 Ur Specific [place] 1.013 (1.010-1.035) 09/17/18 14:20 Urine Protein 3+ (NEGATIVE) H 09/17/18 14:20 Urine Glucose (UA) Negative (NEGATIVE) 09/17/18 14:20 Urine Ketones Negative (NEGATIVE) 09/17/18 14:20 Urine Blood Negative (NEGATIVE) 09/17/18 14:20 Urine Nitrite Negative (NEGATIVE) 09/17/18 14:20 Urine Bilirubin Negative (NEGATIVE) 09/17/18 14:20 Urine Urobilinogen 0.2 mg/dL (0.2-1.0) 09/17/18 14:20 Ur Leukocyte Esterase Negative (NEGATIVE) 09/17/18 14:20 Urine WBC (Auto) 1 /hpf (0-5) 09/17/18 14:20 Urine RBC (Auto) 3 /hpf (0-4) 09/17/18 14:20 Urine Casts (Auto) 6 /lpf (0-8) 09/17/18 14:20 U Epithel Cells (Auto) 2.7 /HPF (0-5/HPF) 09/17/18 14:20 Urine Bacteria (Auto) 4.7 /hpf (NEGATIVE) 09/17/18 14:20 Ur Random Urea Nitrogn 617 mg/dL (350-1000) 09/20/18 07:00 Assessment/Plan mibi 2015 no ischemia, nl EF EKG: sinus, PVC, no ischemic changes echo 09/2018 nl LV function, mild MAC, tr MR, tr AR, RVSP 32 mmHg tele: sinus CXR: L perihilar infiltrate, large R effusion with R infiltrate, congestion 68M h/o HTN, DM, HLD, PAD s/p femoral stent, prior smoker, R sided lung ca s/p partial resection p/w shortness of breath shortness of breath, acute diastolic CHF exacerbation - likely multifactorial - h/o lung ca s/p resection, findings concerning for PNA - abx, nebs per primary, pulm - elevated BNP with congestion on CXR, likely component of HF - nl EF in 2015 - echo nl LV function - sob improved, Cr rising so holding lasix for now HTN - holding home diuretic, valsartan - cont current meds HLD - cont statin PAD - cont statin, aspirin BRET on CKD -renal following
--- NOTE | 2018-09-20 12:10 | PN ---
Progress Note (short form) - Note Progress Note: Overall better. Still with some residual MEHTA but improved. No CP. Intake & Output 09/17/18 09/18/18 09/19/18 09/20/18 23:59 23:59 23:59 23:59 Intake Total 110 260 300 Balance 110 260 300 Weight 190 lb 193 lb 6.4 oz 193 lb Last Vital Signs Temp Pulse Resp BP Pulse Ox 98.4 F 70 20 151/72 90 L 09/20/18 06:00 09/20/18 06:00 09/20/18 06:00 09/20/18 06:00 09/20/18 09:00 Active Medications Albuterol/Ipratropium (Duoneb -) 1 amp NEB Q6H PRN PRN Reason: SHORTNESS OF BREATH Last Admin: 09/20/18 07:36 Dose: 1 amp Amlodipine Besylate (Norvasc -) 10 mg PO DAILY [facility] Last Admin: 09/19/18 10:34 Dose: 10 mg Atorvastatin Calcium (Lipitor -) 20 mg PO [facility] Last Admin: 09/19/18 22:15 Dose: 20 mg Clopidogrel Bisulfate (Plavix -) 75 mg PO DAILY [facility] Last Admin: 09/19/18 10:34 Dose: 75 mg Doxazosin Mesylate (Cardura -) 4 mg PO DAILY [facility] Last Admin: 09/19/18 11:48 Dose: 4 mg Enoxaparin Sodium (Lovenox -) 30 mg SQ DAILY [facility] Last Admin: 09/19/18 10:32 Dose: 30 mg Hydralazine HCl (Apresoline -) 100 mg PO BID [facility] Last Admin: 09/19/18 22:16 Dose: 100 mg Ceftriaxone Sodium 1 gm/ (Dextrose) 50 mls @ 100 mls/hr IVPB DAILY [facility] Last Admin: 09/19/18 10:32 Dose: 100 mls/hr Insulin Aspart (Novolog Vial Sliding Scale -) 1 vial SQ [facility]; Protocol Last Admin: 09/20/18 06:44 Dose: Not Given Insulin Detemir (Levemir Vial) 10 units SQ [facility] Last Admin: 09/19/18 22:16 Dose: 10 unit Labetalol HCl (Normodyne -) 400 mg PO BID [facility] Last Admin: 09/19/18 22:16 Dose: 400 mg Methadone HCl 40 mg/ Methadone (HCl 20 mg) 60 mg PO DAILY@0600 [facility] Last Admin: 09/20/18 06:43 Dose: 60 mg Constitutional: Yes: NAD Eyes: Yes: WNL HENT: Yes: WNL Neck: Yes: WNL Cardiovascular: Yes: Regular Rate and Rhythm, S1, S2 Respiratory: Yes: few scattered rhonchi, No wheeze Gastrointestinal: Yes: Normal Bowel Sounds, Soft Extremities: Yes: WNL Edema: No Labs: Laboratory Results - last 24 hr 09/19/18 09/19/18 09/19/18 12:08 17:50 22:12 Sodium Potassium Chloride Carbon Dioxide Anion Gap BUN Creatinine Est GFR (CKD-EPI)AfAm Est GFR (CKD-EPI)NonAf POC Glucometer 179 178 191 Random Glucose Calcium Ur Random Urea Nitrogn 09/20/18 09/20/18 09/20/18 06:13 06:16 07:00 Sodium 139 Potassium 4.1 Chloride 103 Carbon Dioxide 24 Anion Gap 12 BUN 106.2 H* Creatinine 3.9 H Est GFR (CKD-EPI)AfAm 16.98 Est GFR (CKD-EPI)NonAf 14.65 POC Glucometer 108 Random Glucose 106 Calcium 8.1 L Ur Random Urea Nitrogn 617 Problem List - Problems (1) [id number]-[id number] kidney injury Code(s): N17.9 - ACUTE KIDNEY FAILURE, UNSPECIFIED; N18.9 - CHRONIC KIDNEY DISEASE, UNSPECIFIED (2) CHF exacerbation Code(s): I50.9 - HEART FAILURE, UNSPECIFIED (3) Chronic renal insufficiency, stage III (moderate) Code(s): N18.3 - CHRONIC KIDNEY DISEASE, STAGE 3 (MODERATE) (4) Diabetes Code(s): E11.9 - TYPE 2 DIABETES MELLITUS WITHOUT COMPLICATIONS (5) History of lung cancer Code(s): Z85.118 - PERSONAL HISTORY OF MALIGNANT NEOPLASM OF BRONCHUS AND LUNG (6) Normocytic anemia Code(s): D64.9 - ANEMIA, UNSPECIFIED (7) Dyspnea Code(s): R06.00 - DYSPNEA, UNSPECIFIED Assessment/Plan IMP DYSPNEA BILATERAL INFILTRATES ACUTE ON CHRONIC CHF R/O PNEUMONIA ACUTE ON CHRONIC KIDNEY INJURY ANEMIA HTN DM H/O LUNG CA S/P RESECTION 1984 PLAN LASIX HAS QUALIFIED FOR HOME O2 TRANSITION TO PO ABX WILL NEED REPEAT CT IMAGING IN ABOUT 6 WEEKS D/C PLANN[address] DR DUNBAR
[2018-09-20] MEDS ORDERED: cefTRIAXone SODIUM 1 GM VIAL ONE (12:12)
[2018-09-20] MEDS ORDERED: DEXTROSE 5%-WATER - 50 ML IVPB ONE (12:12)
[2018-09-20] MEDS ORDERED: PT OWN MED DRAWER 7, Y5N ONE ×3 (12:12→17:33)
[2018-09-20] MEDS: CEFTRIAXONE 1 GM in DEXTROSE 5%-WATER - 50 ML IVPB SCH (12:21)
[2018-09-20] MEDS: CLOPIDOGREL BISULFATE 75 MG TABLET (FP) PO SCH (12:22)
[2018-09-20] MEDS: amLODIPine BESYLATE 10 MG TABLET (FP) PO SCH (12:22)
[2018-09-20] MEDS: DOXAZOSIN MESYLATE 4 MG TABLET PO SCH (12:22)
[2018-09-20] MEDS: hydrALAZINE HCL 50 MG TABLET (FP) PO SCH ×2 (12:22→21:32)
[2018-09-20] MEDS: ENOXAPARIN NA (PORCINE) 30 MG/0.3 ML DISP.SYRIN SQ SCH (12:22)
[2018-09-20] MEDS: LABETALOL HCL 200 MG TABLET (FP) PO SCH ×2 (12:22→21:32)
--- NOTE | 2018-09-20 15:59 | PN ---
Progress Note (short form) - Note Progress Note: Renal follow up for BRET Pt seen and examined at the bedside awake and alert on NC O2 no overt shortness of breath but not at baseline lower extremity edema is still present making urine no cp, fever, chills, N/V/D Vital Signs Temperature 98.4 F 09/20/18 06:00 Pulse Rate 70 09/20/18 06:00 Respiratory Rate 20 09/20/18 06:00 Blood Pressure 151/72 09/20/18 06:00 O2 Sat by Pulse Oximetry (%) 90 L 09/20/18 09:00 Intake & Output 09/17/18 09/18/18 09/19/18 09/20/18 23:59 23:59 23:59 23:59 Intake Total 110 260 300 Balance 110 260 300 Weight 86.183 kg 87.725 kg 87.543 kg NAD RRR, no M/R CTA, dec BS right lung bases, no overt rales soft, obese NT/ND + edema in LE CXR- left perihilar infiltrate, large right effusion with infiltrate ECHO- normal LV/RV function, trace MR CBC, BMP 09/19/18 05:39 09/20/18 06:13 Current Medications Albuterol/Ipratropium (Duoneb -) 1 amp NEB Q6H PRN PRN Reason: SHORTNESS OF BREATH Last Admin: 09/20/18 07:36 Dose: 1 amp Amlodipine Besylate (Norvasc -) [address] [facility] Last Admin: 09/20/18 12:22 Dose: 10 mg Atorvastatin Calcium (Lipitor -) [address] [facility] Last Admin: 09/19/18 22:15 Dose: 20 mg Clopidogrel Bisulfate (Plavix -) [address] [facility] Last Admin: 09/20/18 12:22 Dose: 75 mg Doxazosin Mesylate (Cardura -) [address] [facility] Last Admin: 09/20/18 12:22 Dose: 4 mg Enoxaparin Sodium (Lovenox -) [address] [facility] Last Admin: 09/20/18 12:22 Dose: 30 mg Hydralazine HCl (Apresoline -) [address] [facility] Last Admin: 09/20/18 12:22 Dose: 100 mg Ceftriaxone Sodium 1 gm/ (Dextrose) 50 mls @ 100 mls/hr IVPB DAILY [facility] Last Admin: 09/20/18 12:21 Dose: 100 mls/hr Insulin Aspart (Novolog Vial Sliding Scale -) [address] [facility]; Protocol Last Admin: 09/20/18 06:44 Dose: Not Given Insulin Detemir (Levemir Vial) [address] [facility] Last Admin: 09/19/18 22:16 Dose: 10 unit Labetalol HCl (Normodyne -) [address] [facility] Last Admin: 09/20/18 12:22 Dose: 400 mg Methadone HCl 40 mg/ Methadone (HCl 20 mg) 60 mg PO DAILY@0600 [facility] Last Admin: 09/20/18 06:43 Dose: 60 mg 68 year old gentleman with hx of of hypertension, DM on insulin, PVD s/ p Le stents, BPH, Hx of Lung cancer s/p resection who presented with SOB and noted to have BUN/Cr of 79/3.2. #Acute shortness of breath form diastolic HF vs. PNA #Acute on chronic renal insufficiency from renal hypoprofusion vs. acute GN (on Hydralazine r/o drug induced lupus) #Anemia #Hypertension #BPH BUN/Cr still rising today likely due to IV lasix given on admission Urine studies show FeUrea < 35% indicating preserved tubular function UPCR is 3.2, CHICHI sent, result pending, check ANCA as well given lung pathology and renal dysfunction Check Urine Legionella Ag No overt congestion in chest so would defer further diuretics Continue Ceftriaxone as per primary Renal imgaing showed no obstruction but did show lesion on spleen, would need CT with contrast to evalulate but should wait until renal function is improved Trend daily weights hold LUKE/ARB and potassium sparing diuretics at this time continue labetalol, amlodipine and titrate to goal BP < 140/90 continue insulin as per primary continue marcia Iniguez DO
[2018-09-20] MEDS ORDERED: ARTIFICIAL TEARS (POLYVINYL ALCOHOL) OPTH DROPS OU PRN (16:13)
[2018-09-20] MEDS ORDERED: INSULIN (NOVOLOG) ASPART 100 UNITS/ML 10ML VIAL ONE (17:46)
[2018-09-20] MEDS: ATORVASTATIN CA 20 MG TABLET (FP) PO SCH (21:32)
[2018-09-20] MEDS: INSULIN (LEVEMIR) 100 UNITS/ML UNITS SQ SCH (21:35)
[2018-09-20] MEDS ORDERED: BISACODYL 5 MG TABLET.DR (FP) PO ONE (22:12)
[2018-09-21] MEDS ORDERED: METHADONE HCL 40 MG DISPERSABLE TABLET ONE (06:23)
[2018-09-21] MEDS ORDERED: METHADONE HCL 10 MG TABLET ONE (06:24)
[2018-09-21] MEDS: INSULIN SLIDING SCALE (NOVOLOG) 1 VIAL SQ SCH ×6 (06:41→22:20)
[2018-09-21] MEDS: METHADONE 40 MG, METHADONE 20 MG PO SCH (06:42)
[2018-09-21 07:06] LABS: BASO % 0.5 % (0-2.0); EOS % 1.2 % (0-4.5); HEMOGLOBIN 7.9 GM/dL (11.7-16.9); LYMPH % 6.6 % (8-40); MCH 29.1 pg (25.7-33.7); MCHC 33.1 g/dl (32.0-35.9); MEAN CELL VOLUME 87.9 fl (80-96); MEAN PLT VOLUME 8.6 fl (7.5-11.1); MONO % 8.2 % (3.8-10.2); NEUT % 83.5 % (42.8-82.8); PLATELET COUNT 281 K/MM3 (134-434); RBC 2.73 M/mm3 (4.00-5.60); RDW 14.7 % (11.9-15.9)
[2018-09-21 07:57] LABS: ALBUMIN 2.2 g/dl (3.4-5.0); BILIRUBIN,TOTAL 0.2 mg/dL (0.2-1); CREATININE 3.7 mg/dL (0.55-1.3); POTASSIUM 4.5 mmol/L (3.5-5.1); TOT PROT 5.4 g/dl (6.4-8.2)
[2018-09-21 08:19] LABS: BLOOD UREA NITROGEN 114.1 mg/dL (7-18)
--- NOTE | 2018-09-21 09:33 | PN ---
Progress Note, Physician Chief Complaint: seen and examined No distress History of Present Illness: This AM BP, isolated diastolic HTN - Current Medication List Current Medications: Active Medications Albuterol/Ipratropium (Duoneb -) 1 amp NEB Q6H PRN PRN Reason: SHORTNESS OF BREATH Last Admin: 09/20/18 07:36 Dose: 1 amp Amlodipine Besylate (Norvasc -) 10 mg PO DAILY [facility] Last Admin: 09/20/18 12:22 Dose: 10 mg Artificial Tears (Artificial Tears) 2 drop OU Q8H PRN PRN Reason: DRY EYES Atorvastatin Calcium (Lipitor -) 20 mg PO [facility] Last Admin: 09/20/18 21:32 Dose: 20 mg Clopidogrel Bisulfate (Plavix -) 75 mg PO DAILY [facility] Last Admin: 09/20/18 12:22 Dose: 75 mg Doxazosin Mesylate (Cardura -) 4 mg PO DAILY [facility] Last Admin: 09/20/18 12:22 Dose: 4 mg Enoxaparin Sodium (Lovenox -) 30 mg SQ DAILY [facility] Last Admin: 09/20/18 12:22 Dose: 30 mg Hydralazine HCl (Apresoline -) 100 mg PO BID [facility] Last Admin: 09/20/18 21:32 Dose: 100 mg Ceftriaxone Sodium 1 gm/ (Dextrose) 50 mls @ 100 mls/hr IVPB DAILY [facility] Last Admin: 09/20/18 12:21 Dose: 100 mls/hr Insulin Aspart (Novolog Vial Sliding Scale -) 1 vial SQ [facility]; Protocol Last Admin: 09/21/18 06:41 Dose: 3 units Insulin Detemir (Levemir Vial) 10 units SQ [facility] Last Admin: 09/20/18 21:35 Dose: Not Given Labetalol HCl (Normodyne -) 400 mg PO BID [facility] Last Admin: 09/20/18 21:32 Dose: 400 mg Methadone HCl 40 mg/ Methadone (HCl 20 mg) 60 mg PO DAILY@0600 [facility] Last Admin: 09/21/18 06:42 Dose: 60 mg - Objective Vital Signs: Vital Signs Temperature 98.3 F 09/21/18 09:17 Pulse Rate 63 09/21/18 09:17 Respiratory Rate 20 09/21/18 09:17 Blood Pressure 147/102 H 09/21/18 09:17 O2 Sat by Pulse Oximetry (%) 90 L 09/20/18 09:00 Constitutional: Yes: No Distress Cardiovascular: Yes: Regular Rate and Rhythm Respiratory: Yes: CTA Bilaterally Gastrointestinal: Yes: Soft Edema: Yes Edema: LLE: 1+, RLE: 1+ Neurological: Yes: Alert, Oriented ...Motor Strength: WNL Labs: CBC, BMP 09/21/18 06:23 09/21/18 06:23 INR, PTT INR 1.11 (0.83-1.09) H 09/17/18 12:23 Laboratory Tests 09/17/18 09/20/18 09/21/18 12:23 18:50 06:23 WBC 10.0 Hgb 7.9 L Hct 24.0 L Plt Count 281 INR 1.11 H Sodium Potassium BUN Creatinine Calcium AST c-ANCA Pending Proteinase 3 (PR3) Pending p-ANCA Pending Atypical p-ANCA Pending Myeloperoxidase Ab Pending 09/21/18 06:23 WBC Hgb Hct Plt Count INR Sodium 137 Potassium 4.5 BUN 114.1 H* Creatinine 3.7 H Calcium 8.0 L AST 23 c-ANCA Proteinase 3 (PR3) p-ANCA Atypical p-ANCA Myeloperoxidase Ab - ....Imaging EKG: Image Reviewed (NSR artifact) Assessment/Plan Assessment/Plan mibi 2015 no ischemia, nl EF EKG: sinus, PVC, no ischemic changes echo 09/2018 nl LV function, mild MAC, tr MR, tr AR, RVSP 32 mmHg tele: sinus CXR: L perihilar infiltrate, large R effusion with R infiltrate, congestion 68M h/o HTN, DM, HLD, PAD s/p femoral stent, prior smoker, R sided lung ca s/p partial resection p/w shortness of breath 1. shortness of breath, acute diastolic CHF exacerbation: - likely multifactorial - h/o lung ca s/p resection, findings concerning for PNA - abx, nebs per primary, pulm - elevated BNP with congestion on CXR, likely component of HF - nl EF in 2016 - echo nl LV function - sob improved, Cr rising so holding lasix for now 2. HTN: isolated diastolic HTN this AM - holding home diuretic, valsartan - cont current meds, re-evaluate after trend established. 3. HLD: - cont statin 4. PAD: - cont statin, aspirin 5. BRET on CKD: -renal following
[2018-09-21] MEDS ORDERED: DEXTROSE 5%-WATER - 50 ML IVPB ONE (10:55)
[2018-09-21] MEDS ORDERED: cefTRIAXone SODIUM 1 GM VIAL ONE (10:55)
[2018-09-21] MEDS: LABETALOL HCL 200 MG TABLET (FP) PO SCH ×2 (10:58→22:19)
[2018-09-21] MEDS: CLOPIDOGREL BISULFATE 75 MG TABLET (FP) PO SCH (10:58)
[2018-09-21] MEDS: ENOXAPARIN NA (PORCINE) 30 MG/0.3 ML DISP.SYRIN SQ SCH (10:58)
[2018-09-21] MEDS: amLODIPine BESYLATE 10 MG TABLET (FP) PO SCH (10:58)
[2018-09-21] MEDS: hydrALAZINE HCL 50 MG TABLET (FP) PO SCH ×2 (10:58→22:20)
[2018-09-21] MEDS: CEFTRIAXONE 1 GM in DEXTROSE 5%-WATER - 50 ML IVPB SCH (10:59)
[2018-09-21] MEDS: DOXAZOSIN MESYLATE 4 MG TABLET PO SCH (11:19)
[2018-09-21] MEDS ORDERED: PT OWN MED DRAWER 7, Y5N ONE (11:19)
--- NOTE | 2018-09-21 11:39 | PN ---
Progress Note (short form) - Note Progress Note: pt seen/ examined feels better gets sob with walking chart reviewed all f/u noted Vital Signs Temp 98.3 F 09/21/18 09:17 Pulse 63 09/21/18 09:17 Resp 20 09/21/18 09:17 BP 147/102 H 09/21/18 09:17 Pulse Ox 90 L 09/20/18 09:00 Intake & Output 09/20/18 09/20/18 09/21/18 11:59 23:59 11:59 Intake Total 480 Balance 480 Weight 193 lb 196 lb 9.6 oz Intake: Oral 480 Other: Voiding Method Toilet Toilet Toilet # Unmeasured Voids Void 1 1 Bowel Movement No Weight Measurement Method Standing Scale Standing Scale Active Medications Albuterol/Ipratropium (Duoneb -) 1 amp NEB Q6H PRN PRN Reason: SHORTNESS OF BREATH Last Admin: 09/20/18 07:36 Dose: 1 amp Amlodipine Besylate (Norvasc -) 10 mg PO DAILY [facility] Last Admin: 09/21/18 10:58 Dose: 10 mg Artificial Tears (Artificial Tears) 2 drop OU Q8H PRN PRN Reason: DRY EYES Atorvastatin Calcium (Lipitor -) 20 mg PO HS [facility] Last Admin: 09/20/18 21:32 Dose: 20 mg Clopidogrel Bisulfate (Plavix -) 75 mg PO DAILY [facility] Last Admin: 09/21/18 10:58 Dose: 75 mg Doxazosin Mesylate (Cardura -) 4 mg PO DAILY [facility] Last Admin: 09/21/18 11:19 Dose: 4 mg Enoxaparin Sodium (Lovenox -) 30 mg SQ DAILY [facility] Last Admin: 09/21/18 10:58 Dose: 30 mg Hydralazine HCl (Apresoline -) 100 mg PO BID [facility] Last Admin: 09/21/18 10:58 Dose: 100 mg Ceftriaxone Sodium 1 gm/ (Dextrose) 50 mls @ 100 mls/hr IVPB DAILY [facility] Last Admin: 09/21/18 10:59 Dose: 100 mls/hr Insulin Aspart (Novolog Vial Sliding Scale -) 1 vial SQ [facility]; Protocol Last Admin: 09/21/18 06:41 Dose: 3 units Insulin Detemir (Levemir Vial) 10 units SQ [facility] Last Admin: 09/20/18 21:35 Dose: Not Given Labetalol HCl (Normodyne -) 400 mg PO BID [facility] Last Admin: 09/21/18 10:58 Dose: 400 mg Methadone HCl 40 mg/ Methadone (HCl 20 mg) 60 mg PO DAILY@0600 [facility] Last Admin: 09/21/18 06:42 Dose: 60 mg CBC, BMP 09/21/18 06:23 09/21/18 06:23 Microbiology 09/17/18 17:05 Blood Culture - Preliminary Blood - Peripheral Venous NO GROWTH OBTAINED AFTER 72 HOURS, INCUBATION TO CONTINUE FOR 2 DAYS. 09/17/18 16:00 Blood Culture - Preliminary Blood - Peripheral Venous NO GROWTH OBTAINED AFTER 72 HOURS, INCUBATION TO CONTINUE FOR 2 DAYS. 09/20/18 07:00 Legionella Antigen - Final Urine For Antigen Detection Streptococcus pneumoniae Antigen (M - Final Physical Exam S1 s2 RRR Lungs decreased at bases abd- soft, NT JVD+ edema+ PLAN CHF--clinically better, holding lasix due to elevated creatinine Renal function -- creatinine worsening-- noted renal on case has splenic lesion-- can not do contrast imaging due to decreased renal function Pneumonia-- on iv ceftriaxone monitor renal function will follow pulmonary t follow Problem List - Problems (1) BRET (acute kidney injury) Code(s): N17.9 - ACUTE KIDNEY FAILURE, UNSPECIFIED (2) Acute and chronic respiratory failure Code(s): J96.20 - ACUTE AND CHR RESP FAILURE, UNSP W HYPOXIA OR HYPERCAPNIA (3) [id number]-[id number] kidney injury Code(s): N17.9 - ACUTE KIDNEY FAILURE, UNSPECIFIED; N18.9 - CHRONIC KIDNEY DISEASE, UNSPECIFIED (4) CHF exacerbation Code(s): I50.9 - HEART FAILURE, UNSPECIFIED (5) Diabetes Code(s): E11.9 - TYPE 2 DIABETES MELLITUS WITHOUT COMPLICATIONS Problem List - Problems (1) Pneumonia Code(s): J18.9 - PNEUMONIA, UNSPECIFIED ORGANISM (2) Acute and chronic respiratory failure Code(s): J96.20 - ACUTE AND CHR RESP FAILURE, UNSP W HYPOXIA OR HYPERCAPNIA (3) CHF exacerbation Code(s): I50.9 - HEART FAILURE, UNSPECIFIED (4) History of lung cancer Code(s): Z85.118 - PERSONAL HISTORY OF MALIGNANT NEOPLASM OF BRONCHUS AND LUNG (5) Diabetes Code(s): E11.9 - TYPE 2 DIABETES MELLITUS WITHOUT COMPLICATIONS (6) Chronic renal insufficiency, stage III (moderate) Code(s): N18.3 - CHRONIC KIDNEY DISEASE, STAGE 3 (MODERATE)
--- NOTE | 2018-09-21 12:12 | PN ---
Progress Note (short form) - Note Progress Note: PULMONARY AWAKE /ALERT HAS DRY COUGH USES NASAL O2 147/102 AFEBRILE Constitutional: Yes: NAD Eyes: Yes: WNL HENT: Yes: WNL Neck: Yes: WNL Cardiovascular: Yes: Regular Rate and Rhythm, S1, S2 Respiratory: Yes: few scattered rhonchi, No wheeze Gastrointestinal: Yes: Normal Bowel Sounds, Soft Extremities: Yes: WNL Edema: No LABS/MEDS/IMAGES/NOTES REVIEWED IMP DYSPNEA BILATERAL INFILTRATES GGO ACUTE ON CHRONIC CHF ACUTE ON CHRONIC KIDNEY INJURY ANEMIA HTN DM H/O LUNG CA S/P RESECTION 1984 PLAN LASIX ON HOLD PER RENAL HAS QUALIFIED FOR HOME O2 WILL NEED REPEAT CT IMAGING IN ABOUT 6 WEEKS BP CONTROL/BRONCHODILATORS/DVT PROPHYLAXSIS WILL FOLLOW Junaid AWAD MD
--- NOTE | 2018-09-21 13:31 | PN ---
Progress Note (short form) - Note Progress Note: Renal follow up for BRET Pt seen and examined at the bedside awake and alert has mild SOB and MEHTA on NC O2 making urine tolerating diet no fever or chills Vital Signs Temperature 98.3 F 09/21/18 09:17 Pulse Rate 63 09/21/18 09:17 Respiratory Rate 20 09/21/18 09:17 Blood Pressure 147/102 H 09/21/18 09:17 O2 Sat by Pulse Oximetry (%) 90 L 09/20/18 09:00 Intake & Output 09/18/18 09/19/18 09/20/18 09/21/18 23:59 23:59 23:59 23:59 Intake Total 260 300 480 Balance 260 300 480 Weight 87.725 kg 87.543 kg 89.176 kg NAD RRR, no M/R CTA, dec BS right lung bases, no overt rales soft, obese NT/ND + edema in LE CXR- left perihilar infiltrate, large right effusion with infiltrate ECHO- normal LV/RV function, trace MR CBC, BMP 09/21/18 06:23 09/21/18 06:23 Current Medications Albuterol/Ipratropium (Duoneb -) 1 amp NEB Q6H PRN PRN Reason: SHORTNESS OF BREATH Last Admin: 09/20/18 07:36 Dose: 1 amp Amlodipine Besylate (Norvasc -) 10 mg PO DAILY [facility] Last Admin: 09/21/18 10:58 Dose: 10 mg Artificial Tears (Artificial Tears) 2 drop OU Q8H PRN PRN Reason: DRY EYES Atorvastatin Calcium (Lipitor -) 20 mg PO [facility] Last Admin: 09/20/18 21:32 Dose: 20 mg Clopidogrel Bisulfate (Plavix -) 75 mg PO DAILY [facility] Last Admin: 09/21/18 10:58 Dose: 75 mg Doxazosin Mesylate (Cardura -) 4 mg PO DAILY [facility] Last Admin: 09/21/18 11:19 Dose: 4 mg Enoxaparin Sodium (Lovenox -) 30 mg SQ DAILY [facility] Last Admin: 09/21/18 10:58 Dose: 30 mg Hydralazine HCl (Apresoline -) 100 mg PO BID [facility] Last Admin: 09/21/18 10:58 Dose: 100 mg Ceftriaxone Sodium 1 gm/ (Dextrose) 50 mls @ 100 mls/hr IVPB DAILY [facility] Last Admin: 09/21/18 10:59 Dose: 100 mls/hr Sodium Chloride (Normal Saline -) 1,000 mls @ 42 mls/hr IV ASDIR [facility] Stop: 09/22/18 13:30 Insulin Aspart (Novolog Vial Sliding Scale -) 1 vial SQ ACHS [facility]; Protocol Last Admin: 09/21/18 06:41 Dose: 3 units Insulin Detemir (Levemir Vial) 10 units SQ HS [facility] Last Admin: 09/20/18 21:35 Dose: Not Given Labetalol HCl (Normodyne -) 400 mg PO BID [facility] Last Admin: 09/21/18 10:58 Dose: 400 mg Methadone HCl 40 mg/ Methadone (HCl 20 mg) 60 mg PO DAILY@0600 [facility] Last Admin: 09/21/18 06:42 Dose: 60 mg 68 year old gentleman with hx of of hypertension, DM on insulin, PVD s/ p Le stents, BPH, Hx of Lung cancer s/p resection who presented with SOB and noted to have BUN/Cr of 79/3.2. #Acute shortness of breath form diastolic HF vs. PNA #Acute on chronic renal insufficiency from renal hypoprofusion vs. acute GN (on Hydralazine r/o drug induced lupus) #Anemia #Hypertension #BPH Renal function w/o improvement Urine studies show FeUrea < 35% indicating preserved tubular function CT chest shows L lung PNA and no overt HF will give NS at 42 cc per hour x 24 hours UPCR is 3.2, CHICHI negative ANCA is pending Urine Legionella Ag pending Continue Ceftriaxone as per primary Renal imgaing showed no obstruction but did show lesion on spleen, would need CT with contrast to evalulate but should wait until renal function is improved Trend daily weights hold LUKE/ARB and potassium sparing diuretics at this time continue labetalol, amlodipine and titrate to goal BP < 140/90 continue insulin as per primary continue marcia Iniguez DO
[2018-09-21] MEDS: SODIUM CHLORIDE 1,000 ML IV SCH (14:35)
[2018-09-21] MEDS: ALBUTEROL SO4 2.5/IPRATROPIUM 0.5 INH SOL 3 ML VIAL.NEB. NEB PRN (14:55)
[2018-09-21] MEDS: ATORVASTATIN CA 20 MG TABLET (FP) PO SCH (22:19)
[2018-09-21] MEDS: INSULIN (LEVEMIR) 100 UNITS/ML UNITS SQ SCH (22:19)
[2018-09-22] MEDS ORDERED: METHADONE HCL 10 MG TABLET ONE (06:16)
[2018-09-22] MEDS ORDERED: METHADONE HCL 40 MG DISPERSABLE TABLET ONE (06:16)
[2018-09-22] MEDS: INSULIN SLIDING SCALE (NOVOLOG) 1 VIAL SQ SCH ×4 (06:37→23:26)
[2018-09-22] MEDS: METHADONE 40 MG, METHADONE 20 MG PO SCH (06:39)
[2018-09-22 07:53] LABS: BASO % 0.5 % (0-2.0); EOS % 1.2 % (0-4.5); HEMATOCRIT 23.2 % (35.4-49); LYMPH % 7.6 % (8-40); MCHC 34.4 g/dl (32.0-35.9); MEAN CELL VOLUME 87.1 fl (80-96); MEAN PLT VOLUME 8.4 fl (7.5-11.1); MONO % 8.6 % (3.8-10.2); NEUT % 82.1 % (42.8-82.8); PLATELET COUNT 321 K/MM3 (134-434); RBC 2.66 M/mm3 (4.00-5.60); RDW 14.4 % (11.9-15.9); WHITE BLOOD COUNT 10.6 K/mm3 (4.0-10.0)
[2018-09-22 08:02] LABS: CREATININE 3.5 mg/dL (0.55-1.3); MAGNESIUM 2.6 mg/dL (1.8-2.4); PHOSPHOROUS 5.3 mg/dL (2.5-4.9); POTASSIUM 4.3 mmol/L (3.5-5.1)
[2018-09-22 08:34] LABS: BLOOD UREA NITROGEN 111.3 mg/dL (7-18)
[2018-09-22] MEDS ORDERED: cefTRIAXone SODIUM 1 GM VIAL ONE (09:23)
[2018-09-22] MEDS ORDERED: PT OWN MED DRAWER 7, Y5N ONE (09:23)
[2018-09-22] MEDS ORDERED: DEXTROSE 5%-WATER - 50 ML IVPB ONE (09:24)
[2018-09-22] MEDS: DOXAZOSIN MESYLATE 4 MG TABLET PO SCH (09:59)
[2018-09-22] MEDS: hydrALAZINE HCL 50 MG TABLET (FP) PO SCH ×2 (09:59→23:25)
[2018-09-22] MEDS: LABETALOL HCL 200 MG TABLET (FP) PO SCH ×2 (10:00→23:25)
[2018-09-22] MEDS: ENOXAPARIN NA (PORCINE) 30 MG/0.3 ML DISP.SYRIN SQ SCH (10:00)
[2018-09-22] MEDS: CLOPIDOGREL BISULFATE 75 MG TABLET (FP) PO SCH (10:00)
[2018-09-22] MEDS: amLODIPine BESYLATE 10 MG TABLET (FP) PO SCH (10:00)
[2018-09-22] MEDS: CEFTRIAXONE 1 GM in DEXTROSE 5%-WATER - 50 ML IVPB SCH (10:01)
--- NOTE | 2018-09-22 11:33 | PN ---
Progress Note (short form) - Note Progress Note: PULMONARY AWAKE /ALERT HAS DRY COUGH USES NASAL O2 VSS/ AFEBRILE Constitutional: Yes: NAD Eyes: Yes: WNL HENT: Yes: WNL Neck: Yes: WNL Cardiovascular: Yes: Regular Rate and Rhythm, S1, S2 Respiratory: Yes: few scattered rhonchi, No wheeze Gastrointestinal: Yes: Normal Bowel Sounds, Soft Extremities: Yes: WNL Edema: No LABS/MEDS/IMAGES/NOTES REVIEWED IMP DYSPNEA BILATERAL INFILTRATES GGO ACUTE ON CHRONIC CHF ACUTE ON CHRONIC KIDNEY INJURY ANEMIA HTN DM H/O LUNG CA S/P RESECTION 1984 PLAN LASIX ON HOLD PER RENAL HAS QUALIFIED FOR HOME O2 WILL NEED REPEAT CT IMAGING IN ABOUT 6 WEEKS BP CONTROL/BRONCHODILATORS/DVT PROPHYLAXSIS WILL FOLLOW Junaid AWAD MD
--- NOTE | 2018-09-22 11:47 | PN ---
Progress Note (short form) - Note Progress Note: s: breathing improved today. no chest pain, palps, dizziness Current Medications Albuterol/Ipratropium (Duoneb -) 1 amp NEB Q6H PRN PRN Reason: SHORTNESS OF BREATH Last Admin: 09/21/18 14:55 Dose: 1 amp Amlodipine Besylate (Norvasc -) 10 mg PO DAILY [facility] Last Admin: 09/22/18 10:00 Dose: 10 mg Artificial Tears (Artificial Tears) 2 drop OU Q8H PRN PRN Reason: DRY EYES Atorvastatin Calcium (Lipitor -) 20 mg PO HS [facility] Last Admin: 09/21/18 22:19 Dose: 20 mg Clopidogrel Bisulfate (Plavix -) 75 mg PO DAILY [facility] Last Admin: 09/22/18 10:00 Dose: 75 mg Doxazosin Mesylate (Cardura -) 4 mg PO DAILY [facility] Last Admin: 09/22/18 09:59 Dose: 4 mg Enoxaparin Sodium (Lovenox -) 30 mg SQ DAILY [facility] Last Admin: 09/22/18 10:00 Dose: 30 mg Hydralazine HCl (Apresoline -) 100 mg PO BID [facility] Last Admin: 09/22/18 09:59 Dose: 100 mg Ceftriaxone Sodium 1 gm/ (Dextrose) 50 mls @ 100 mls/hr IVPB DAILY [facility] Last Admin: 09/22/18 10:01 Dose: 100 mls/hr Sodium Chloride (Normal Saline -) 1,000 mls @ 42 mls/hr IV ASDIR [facility] Stop: 09/22/18 13:30 Last Admin: 09/21/18 14:35 Dose: 42 mls/hr Insulin Aspart (Novolog Vial Sliding Scale -) 1 vial SQ [facility]; Protocol Last Admin: 09/22/18 06:37 Dose: Not Given Insulin Detemir (Levemir Vial) 10 units SQ HS [facility] Last Admin: 09/21/18 22:19 Dose: 10 unit Labetalol HCl (Normodyne -) 400 mg PO BID [facility] Last Admin: 09/22/18 10:00 Dose: 400 mg Methadone HCl 40 mg/ Methadone (HCl 20 mg) 60 mg PO DAILY@0600 [facility] Last Admin: 09/22/18 06:39 Dose: 60 mg Vital Signs Period Temp Pulse Resp BP Sys/Bansal Pulse Ox Last 24 Hr 97.9 F-98.2 F 62-78 20-20 138-167/59-72 92 Constitutional: Yes: No Distress Cardiovascular: Yes: Regular Rate and Rhythm Respiratory: Yes: CTA Bilaterally Gastrointestinal: Yes: Soft Edema: Yes Edema: LLE: 1+, RLE: 1+ Neurological: Yes: Alert, Oriented ...Motor Strength: WNL no jaundice, diaphoresis not agitated - ....Imaging EKG: Image Reviewed (NSR artifact) Assessment/Plan Assessment/Plan mibi 2016 no ischemia, nl EF EKG: sinus, PVC, no ischemic changes echo 09/2018 nl LV function, mild MAC, tr MR, tr AR, RVSP 32 mmHg tele: sinus CXR: L perihilar infiltrate, large R effusion with R infiltrate, congestion 68M h/o HTN, DM, HLD, PAD s/p femoral stent, prior smoker, R sided lung ca s/p partial resection p/w shortness of breath 1. shortness of breath, acute diastolic CHF exacerbation: - likely multifactorial - h/o lung ca s/p resection, findings concerning for PNA - abx, nebs per primary, pulm - elevated BNP with congestion on CXR, likely component of HF - nl EF in 2016 - echo nl LV function - holding lasix for elevated BUN,Cr 2. HTN - holding home diuretic, valsartan - cont current meds 3. HLD: - cont statin 4. PAD: - cont statin, aspirin 5. BRET on CKD: -renal following
--- NOTE | 2018-09-22 13:01 | PN ---
Progress Note (short form) - Note Progress Note: Problems #Acute shortness of breath form diastolic HF vs. PNA #Acute on chronic renal insufficiency from renal hypoprofusion vs. acute GN (on Hydralazine r/o drug induced lupus) #Anemia #Hypertension #BPH Current Medications Albuterol/Ipratropium (Duoneb -) 1 amp NEB Q6H PRN PRN Reason: SHORTNESS OF BREATH Last Admin: 09/21/18 14:55 Dose: 1 amp Amlodipine Besylate (Norvasc -) 10 mg PO DAILY [facility] Last Admin: 09/22/18 10:00 Dose: 10 mg Artificial Tears (Artificial Tears) 2 drop OU Q8H PRN PRN Reason: DRY EYES Atorvastatin Calcium (Lipitor -) 20 mg PO HS [facility] Last Admin: 09/21/18 22:19 Dose: 20 mg Clopidogrel Bisulfate (Plavix -) 75 mg PO DAILY [facility] Last Admin: 09/22/18 10:00 Dose: 75 mg Doxazosin Mesylate (Cardura -) 4 mg PO DAILY [facility] Last Admin: 09/22/18 09:59 Dose: 4 mg Enoxaparin Sodium (Lovenox -) 30 mg SQ DAILY [facility] Last Admin: 09/22/18 10:00 Dose: 30 mg Hydralazine HCl (Apresoline -) 100 mg PO BID [facility] Last Admin: 09/22/18 09:59 Dose: 100 mg Ceftriaxone Sodium 1 gm/ (Dextrose) 50 mls @ 100 mls/hr IVPB DAILY [facility] Last Admin: 09/22/18 10:01 Dose: 100 mls/hr Sodium Chloride (Normal Saline -) 1,000 mls @ 42 mls/hr IV ASDIR [facility] Stop: 09/22/18 13:30 Last Admin: 09/21/18 14:35 Dose: 42 mls/hr Insulin Aspart (Novolog Vial Sliding Scale -) 1 vial SQ [facility]; Protocol Last Admin: 09/22/18 12:11 Dose: Not Given Insulin Detemir (Levemir Vial) 10 units SQ [facility] Last Admin: 09/21/18 22:19 Dose: 10 unit Labetalol HCl (Normodyne -) 400 mg PO BID [facility] Last Admin: 09/22/18 10:00 Dose: 400 mg Methadone HCl 40 mg/ Methadone (HCl 20 mg) 60 mg PO DAILY@0600 [facility] Last Admin: 09/22/18 06:39 Dose: 60 mg sob on mild exertion c/o constipation x "12 days" requesting prune juice Last Vital Signs Temp Pulse Resp BP Pulse Ox 98 F 74 20 148/72 90 L 09/22/18 10:00 09/22/18 10:00 09/22/18 10:00 09/22/18 10:00 09/22/18 09:00 lungs diminished sounds heart reg abd soft CBC, BMP 09/22/18 06:29 09/22/18 06:29 IMP-sony on ckd pna sob
--- NOTE | 2018-09-22 14:19 | PN ---
Progress Note (short form) - Note Progress Note: pt seen/ examined feels worse today gets sob denies cp started on mild hyrdation by renal yesterday chart reviewed all f/u noted Vital Signs Temp 98.3 F 09/21/18 09:17 Pulse 63 09/21/18 09:17 Resp 20 09/21/18 09:17 BP 147/102 H 09/21/18 09:17 Pulse Ox 90 L 09/20/18 09:00 Intake & Output 09/20/18 09/20/18 09/21/18 11:59 23:59 11:59 Intake Total 480 Balance 480 Weight 193 lb 196 lb 9.6 oz Intake: Oral 480 Other: Voiding Method Toilet Toilet Toilet # Unmeasured Voids Void 1 1 Bowel Movement No Weight Measurement Method Standing Scale Standing Scale Active Medications Albuterol/Ipratropium (Duoneb -) 1 amp NEB Q6H PRN PRN Reason: SHORTNESS OF BREATH Last Admin: 09/20/18 07:36 Dose: 1 amp Amlodipine Besylate (Norvasc -) 10 mg PO DAILY [facility] Last Admin: 09/21/18 10:58 Dose: 10 mg Artificial Tears (Artificial Tears) 2 drop OU Q8H PRN PRN Reason: DRY EYES Atorvastatin Calcium (Lipitor -) 20 mg PO [facility] Last Admin: 09/20/18 21:32 Dose: 20 mg Clopidogrel Bisulfate (Plavix -) 75 mg PO DAILY [facility] Last Admin: 09/21/18 10:58 Dose: 75 mg Doxazosin Mesylate (Cardura -) 4 mg PO DAILY [facility] Last Admin: 09/21/18 11:19 Dose: 4 mg Enoxaparin Sodium (Lovenox -) 30 mg SQ DAILY [facility] Last Admin: 09/21/18 10:58 Dose: 30 mg Hydralazine HCl (Apresoline -) 100 mg PO BID [facility] Last Admin: 09/21/18 10:58 Dose: 100 mg Ceftriaxone Sodium 1 gm/ (Dextrose) 50 mls @ 100 mls/hr IVPB DAILY [facility] Last Admin: 09/21/18 10:59 Dose: 100 mls/hr Insulin Aspart (Novolog Vial Sliding Scale -) 1 vial SQ [facility]; Protocol Last Admin: 09/21/18 06:41 Dose: 3 units Insulin Detemir (Levemir Vial) 10 units SQ [facility] Last Admin: 09/20/18 21:35 Dose: Not Given Labetalol HCl (Normodyne -) 400 mg PO BID [facility] Last Admin: 09/21/18 10:58 Dose: 400 mg Methadone HCl 40 mg/ Methadone (HCl 20 mg) 60 mg PO DAILY@0600 [facility] Last Admin: 09/21/18 06:42 Dose: 60 mg CBC, BMP 09/21/18 06:23 09/21/18 06:23 Microbiology 09/17/18 17:05 Blood Culture - Preliminary Blood - Peripheral Venous NO GROWTH OBTAINED AFTER 72 HOURS, INCUBATION TO CONTINUE FOR 2 DAYS. 09/17/18 16:00 Blood Culture - Preliminary Blood - Peripheral Venous NO GROWTH OBTAINED AFTER 72 HOURS, INCUBATION TO CONTINUE FOR 2 DAYS. 09/20/18 07:00 Legionella Antigen - Final Urine For Antigen Detection Streptococcus pneumoniae Antigen (M - Final Physical Exam S1 s2 RRR Lungs decreased at bases abd- soft, NT JVD+ edema+ PLAN discussed with Dr. Thompson today d/c fluids continue abx continue other meds f/u labs will follow repeat cxr in am Problem List - Problems (1) BRET (acute kidney injury) Code(s): N17.9 - ACUTE KIDNEY FAILURE, UNSPECIFIED (2) Acute and chronic respiratory failure Code(s): J96.20 - ACUTE AND CHR RESP FAILURE, UNSP W HYPOXIA OR HYPERCAPNIA (3) [id number] kidney injury Code(s): N17.9 - ACUTE KIDNEY FAILURE, UNSPECIFIED; N18.9 - CHRONIC KIDNEY DISEASE, UNSPECIFIED (4) CHF exacerbation Code(s): I50.9 - HEART FAILURE, UNSPECIFIED (5) Diabetes Code(s): E11.9 - TYPE 2 DIABETES MELLITUS WITHOUT COMPLICATIONS Problem List - Problems (1) Pneumonia Code(s): J18.9 - PNEUMONIA, UNSPECIFIED ORGANISM (2) Acute and chronic respiratory failure Code(s): J96.20 - ACUTE AND CHR RESP FAILURE, UNSP W HYPOXIA OR HYPERCAPNIA (3) CHF exacerbation Code(s): I50.9 - HEART FAILURE, UNSPECIFIED (4) History of lung cancer Code(s): Z85.118 - PERSONAL HISTORY OF MALIGNANT NEOPLASM OF BRONCHUS AND LUNG (5) Diabetes Code(s): E11.9 - TYPE 2 DIABETES MELLITUS WITHOUT COMPLICATIONS (6) Chronic renal insufficiency, stage III (moderate) Code(s): N18.3 - CHRONIC KIDNEY DISEASE, STAGE 3 (MODERATE)
[2018-09-22] MEDS ORDERED: SODIUM PHOSPHATE/NA BIPHOS 133 ML ENEMA RC ONE (16:00)
[2018-09-22] MEDS: PANTOPRAZOLE 40 MG TABLET (FP) PO SCH (16:41)
[2018-09-22] MEDS: ALBUTEROL SO4 2.5/IPRATROPIUM 0.5 INH SOL 3 ML VIAL.NEB. NEB PRN ×2 (20:30→21:00)
[2018-09-22] MEDS: SODIUM CHLORIDE 1,000 ML IV SCH (23:22)
[2018-09-22] MEDS: INSULIN (LEVEMIR) 100 UNITS/ML UNITS SQ SCH (23:26)
[2018-09-22] MEDS: ATORVASTATIN CA 20 MG TABLET (FP) PO SCH (23:26)
[2018-09-23] MEDS ORDERED: METHADONE HCL 40 MG DISPERSABLE TABLET ONE (05:25)
[2018-09-23] MEDS ORDERED: METHADONE HCL 10 MG TABLET ONE (05:25)
[2018-09-23] MEDS: INSULIN SLIDING SCALE (NOVOLOG) 1 VIAL SQ SCH ×4 (06:19→22:30)
[2018-09-23] MEDS: METHADONE 40 MG, METHADONE 20 MG PO SCH (06:19)
[2018-09-23 07:32] LABS: ALBUMIN 2.2 g/dl (3.4-5.0); BILIRUBIN,TOTAL 0.3 mg/dL (0.2-1); CALCIUM 8.3 mg/dL (8.5-10.1); CREATININE 3.3 mg/dL (0.55-1.3); POTASSIUM 4.3 mmol/L (3.5-5.1); TOT PROT 5.8 g/dl (6.4-8.2)
[2018-09-23 07:37] LABS: BASO % 0.3 % (0-2.0); BLOOD UREA NITROGEN 107.6 mg/dL (7-18); EOS % 1.5 % (0-4.5); HEMATOCRIT 25.6 % (35.4-49); HEMOGLOBIN 8.5 GM/dL (11.7-16.9); LYMPH % 5.2 % (8-40); MCH 29.1 pg (25.7-33.7); MCHC 33.3 g/dl (32.0-35.9); MEAN CELL VOLUME 87.4 fl (80-96); MEAN PLT VOLUME 8.1 fl (7.5-11.1); MONO % 7.4 % (3.8-10.2); NEUT % 85.6 % (42.8-82.8); RBC 2.93 M/mm3 (4.00-5.60); RDW 14.9 % (11.9-15.9); WHITE BLOOD COUNT 12.1 K/mm3 (4.0-10.0)
[2018-09-23 08:36] LABS: PLATELET COUNT 369 K/MM3 (134-434)
--- NOTE | 2018-09-23 09:16 | PN ---
Progress Note (short form) - Note Progress Note: PULMONARY AWAKE /ALERT HAS DRY COUGH USES NASAL O2 HAS DYSPNEA ON MINIMAL EXERTION VSS/ AFEBRILE/SPO2 85% ON NASAL O2 Constitutional: Yes: NAD Eyes: Yes: WNL HENT: Yes: WNL Neck: Yes: WNL Cardiovascular: Yes: Regular Rate and Rhythm, S1, S2 Respiratory: Yes: few scattered rhonchi, No wheeze Gastrointestinal: Yes: Normal Bowel Sounds, Soft Extremities: Yes: WNL Edema: No LABS/MEDS/IMAGES/NOTES REVIEWED IMP HYPOXEMIC RESP FAILURE BILATERAL INFILTRATES GGO ACUTE ON CHRONIC CHF ACUTE ON CHRONIC KIDNEY INJURY ANEMIA HTN DM H/O LUNG CA S/P RESECTION 1984 PLAN LASIX ON HOLD PER RENAL WOULD CONSIDER TRIAL HD HAS QUALIFIED FOR HOME O2 WILL NEED REPEAT CT IMAGING IN ABOUT 6 WEEKS BP CONTROL/BRONCHODILATORS/DVT PROPHYLAXSIS WILL FOLLOW Junaid AWAD MD
[2018-09-23] MEDS ORDERED: DEXTROSE 5%-WATER - 50 ML IVPB ONE (09:40)
[2018-09-23] MEDS ORDERED: cefTRIAXone SODIUM 1 GM VIAL ONE (09:40)
[2018-09-23] MEDS: hydrALAZINE HCL 50 MG TABLET (FP) PO SCH ×2 (09:50→22:21)
[2018-09-23] MEDS: DOXAZOSIN MESYLATE 4 MG TABLET PO SCH (09:50)
[2018-09-23] MEDS: LABETALOL HCL 200 MG TABLET (FP) PO SCH ×2 (09:51→22:21)
[2018-09-23] MEDS: ENOXAPARIN NA (PORCINE) 30 MG/0.3 ML DISP.SYRIN SQ SCH (09:51)
[2018-09-23] MEDS: PANTOPRAZOLE 40 MG TABLET (FP) PO SCH (09:52)
[2018-09-23] MEDS: CEFTRIAXONE 1 GM in DEXTROSE 5%-WATER - 50 ML IVPB SCH (09:52)
[2018-09-23] MEDS: CLOPIDOGREL BISULFATE 75 MG TABLET (FP) PO SCH (09:52)
[2018-09-23] MEDS: amLODIPine BESYLATE 10 MG TABLET (FP) PO SCH (09:52)
[2018-09-23] MEDS: ALBUTEROL SO4 2.5/IPRATROPIUM 0.5 INH SOL 3 ML VIAL.NEB. NEB PRN ×2 (10:16→21:00)
[2018-09-23] MEDS ORDERED: FUROSEMIDE 40 MG/4 ML INJECTABLE VIAL IVPUSH ONE (10:55)
--- NOTE | 2018-09-23 10:56 | PN ---
Progress Note (short form) - Note Progress Note: s: breathing worse, increased edema. no chest pain, palps, dizziness Current Medications Albuterol/Ipratropium (Duoneb -) 1 amp NEB Q6H PRN PRN Reason: SHORTNESS OF BREATH Last Admin: 09/23/18 10:16 Dose: 1 amp Amlodipine Besylate (Norvasc -) 10 mg PO DAILY [facility] Last Admin: 09/23/18 09:52 Dose: 10 mg Artificial Tears (Artificial Tears) 2 drop OU Q8H PRN PRN Reason: DRY EYES Atorvastatin Calcium (Lipitor -) 20 mg PO HS [facility] Last Admin: 09/22/18 23:26 Dose: 20 mg Clopidogrel Bisulfate (Plavix -) 75 mg PO DAILY [facility] Last Admin: 09/23/18 09:52 Dose: 75 mg Doxazosin Mesylate (Cardura -) 4 mg PO DAILY [facility] Last Admin: 09/23/18 09:50 Dose: 4 mg Enoxaparin Sodium (Lovenox -) 30 mg SQ DAILY [facility] Last Admin: 09/23/18 09:51 Dose: 30 mg Hydralazine HCl (Apresoline -) 100 mg PO BID [facility] Last Admin: 09/23/18 09:50 Dose: 100 mg Ceftriaxone Sodium 1 gm/ (Dextrose) 50 mls @ 100 mls/hr IVPB DAILY [facility] Last Admin: 09/23/18 09:52 Dose: 100 mls/hr Insulin Aspart (Novolog Vial Sliding Scale -) 1 vial SQ [facility]; Protocol Last Admin: 09/23/18 06:19 Dose: Not Given Insulin Detemir (Levemir Vial) 10 units SQ [facility] Last Admin: 09/22/18 23:26 Dose: 10 unit Labetalol HCl (Normodyne -) 400 mg PO BID [facility] Last Admin: 09/23/18 09:51 Dose: 400 mg Methadone HCl 40 mg/ Methadone (HCl 20 mg) 60 mg PO DAILY@0600 [facility] Last Admin: 09/23/18 06:19 Dose: 60 mg Pantoprazole Sodium (Protonix -) 40 mg PO DAILY [facility] Last Admin: 09/23/18 09:52 Dose: 40 mg Vital Signs Period Temp Pulse Resp BP Sys/Bansal Pulse Ox Last 24 Hr 97.7 F-98.6 F 62-79 18-20 139-167/58-78 92 Constitutional: Yes: No Distress Cardiovascular: Yes: Regular Rate and Rhythm, +JVD Respiratory: Yes: CTA Bilaterally Gastrointestinal: Yes: Soft Edema: Yes Edema: LLE: 1+, RLE: 1+ Neurological: Yes: Alert, Oriented ...Motor Strength: WNL no jaundice, diaphoresis not agitated - ....Imaging EKG: Image Reviewed (NSR artifact) Assessment/Plan mibi 2015 no ischemia, nl EF EKG: sinus, PVC, no ischemic changes echo 09/2018 nl LV function, mild MAC, tr MR, tr AR, RVSP 32 mmHg tele: sinus CXR: L perihilar infiltrate, large R effusion with R infiltrate, congestion 68M h/o HTN, DM, HLD, PAD s/p femoral stent, prior smoker, R sided lung ca s/p partial resection p/w shortness of breath 1. shortness of breath, acute diastolic CHF exacerbation: - likely multifactorial - h/o lung ca s/p resection, findings concerning for PNA - abx, nebs per primary, pulm - elevated BNP with congestion on CXR, likely component of HF - nl EF in 2016 - echo nl LV function - lasix was held for elevated BUN/Cr, received IVF - now with mild edema, worsening resp status, weight up - likely component of congestion, trial IV lasix - CXR today 2. HTN - holding home diuretic, valsartan - cont current meds 3. HLD: - cont statin 4. PAD: - cont statin, aspirin 5. BRET on CKD: -renal following
--- NOTE | 2018-09-23 12:26 | PN ---
Progress Note (short form) - Note Progress Note: pt seen/ examined feels even worse today +ve sob denies cp cardiology giving high dose of lasix-- and I agree may need dialysis Vital Signs Temp 98.5 F 09/23/18 09:48 Pulse 75 09/23/18 09:48 Resp 20 09/23/18 09:48 BP 164/72 09/23/18 09:48 Pulse Ox 92 L 09/23/18 09:00 Intake & Output 09/22/18 09/23/18 09/23/18 23:59 11:59 23:59 Intake Total 744 10 Output Total 200 Balance 544 10 Weight 200 lb Intake: IV 294 10 Normal Saline - 1,000 ml 294 @ 42 mls/hr IV ASDIR [facility] Rx#:[id number] Sl hand 10 IVPB 50 Oral 400 Output: Urine 200 Void 200 Other: Voiding Method Toilet Toilet # Unmeasured Voids Void 1 1 Bowel Movement No Weight Measurement Method Standing Scale Active Medications Albuterol/Ipratropium (Duoneb -) 1 amp NEB Q6H PRN PRN Reason: SHORTNESS OF BREATH Last Admin: 09/23/18 10:16 Dose: 1 amp Amlodipine Besylate (Norvasc -) 10 mg PO DAILY [facility] Last Admin: 09/23/18 09:52 Dose: 10 mg Artificial Tears (Artificial Tears) 2 drop OU Q8H PRN PRN Reason: DRY EYES Atorvastatin Calcium (Lipitor -) 20 mg PO HS [facility] Last Admin: 09/22/18 23:26 Dose: 20 mg Clopidogrel Bisulfate (Plavix -) 75 mg PO DAILY [facility] Last Admin: 09/23/18 09:52 Dose: 75 mg Doxazosin Mesylate (Cardura -) 4 mg PO DAILY [facility] Last Admin: 09/23/18 09:50 Dose: 4 mg Enoxaparin Sodium (Lovenox -) 30 mg SQ DAILY [facility] Last Admin: 09/23/18 09:51 Dose: 30 mg Hydralazine HCl (Apresoline -) 100 mg PO BID [facility] Last Admin: 09/23/18 09:50 Dose: 100 mg Ceftriaxone Sodium 1 gm/ (Dextrose) 50 mls @ 100 mls/hr IVPB DAILY [facility] Last Admin: 09/23/18 09:52 Dose: 100 mls/hr Insulin Aspart (Novolog Vial Sliding Scale -) 1 vial SQ ACHS [facility]; Protocol Last Admin: 09/23/18 06:19 Dose: Not Given Insulin Detemir (Levemir Vial) 10 units SQ HS [facility] Last Admin: 09/22/18 23:26 Dose: 10 unit Labetalol HCl (Normodyne -) 400 mg PO BID [facility] Last Admin: 09/23/18 09:51 Dose: 400 mg Methadone HCl 40 mg/ Methadone (HCl 20 mg) 60 mg PO DAILY@0600 [facility] Last Admin: 09/23/18 06:19 Dose: 60 mg Pantoprazole Sodium (Protonix -) 40 mg PO DAILY [facility] Last Admin: 09/23/18 09:52 Dose: 40 mg CBC, BMP 09/23/18 06:30 09/23/18 06:30 cxr -- congested/ effusions/ infiltrates Physical Exam S1 s2 RRR Lungs decreased at bases abd- soft, NT JVD+ edema+ PLAN i/v lasix continue abx continue other meds f/u labs will follow will discuss with renal Problem List - Problems (1) Pneumonia Code(s): J18.9 - PNEUMONIA, UNSPECIFIED ORGANISM (2) Acute and chronic respiratory failure Code(s): J96.20 - ACUTE AND CHR RESP FAILURE, UNSP W HYPOXIA OR HYPERCAPNIA (3) CHF exacerbation Code(s): I50.9 - HEART FAILURE, UNSPECIFIED (4) History of lung cancer Code(s): Z85.118 - PERSONAL HISTORY OF MALIGNANT NEOPLASM OF BRONCHUS AND LUNG (5) Diabetes Code(s): E11.9 - TYPE 2 DIABETES MELLITUS WITHOUT COMPLICATIONS (6) Chronic renal insufficiency, stage III (moderate) Code(s): N18.3 - CHRONIC KIDNEY DISEASE, STAGE 3 (MODERATE)
[2018-09-23] MEDS ORDERED: SODIUM CHLORIDE NASAL SPRAY 44 ML BOTTLE NS PRN (15:50)
[2018-09-23] MEDS ORDERED: INSULIN (NOVOLOG) ASPART 100 UNITS/ML 10ML VIAL ONE (16:38)
--- NOTE | 2018-09-23 18:33 | PN ---
Progress Note (short form) - Note Progress Note: Problems #Acute shortness of breath form diastolic HF vs. PNA #Acute on chronic renal insufficiency from renal hypoprofusion vs. acute GN (on Hydralazine r/o drug induced lupus) #Anemia #Hypertension #BPH Current Medications Albuterol/Ipratropium (Duoneb -) 1 amp NEB Q6H PRN PRN Reason: SHORTNESS OF BREATH Last Admin: 09/23/18 10:16 Dose: 1 amp Amlodipine Besylate (Norvasc -) 10 mg PO DAILY [facility] Last Admin: 09/23/18 09:52 Dose: 10 mg Artificial Tears (Artificial Tears) 2 drop OU Q8H PRN PRN Reason: DRY EYES Atorvastatin Calcium (Lipitor -) 20 mg PO [facility] Last Admin: 09/22/18 23:26 Dose: 20 mg Clopidogrel Bisulfate (Plavix -) 75 mg PO DAILY [facility] Last Admin: 09/23/18 09:52 Dose: 75 mg Doxazosin Mesylate (Cardura -) 4 mg PO DAILY [facility] Last Admin: 09/23/18 09:50 Dose: 4 mg Enoxaparin Sodium (Lovenox -) 30 mg SQ DAILY [facility] Last Admin: 09/23/18 09:51 Dose: 30 mg Hydralazine HCl (Apresoline -) 100 mg PO BID [facility] Last Admin: 09/23/18 09:50 Dose: 100 mg Ceftriaxone Sodium 1 gm/ (Dextrose) 50 mls @ 100 mls/hr IVPB DAILY [facility] Last Admin: 09/23/18 09:52 Dose: 100 mls/hr Insulin Aspart (Novolog Vial Sliding Scale -) 1 vial SQ [facility]; Protocol Last Admin: 09/23/18 16:37 Dose: 3 units Insulin Detemir (Levemir Vial) 10 units SQ [facility] Last Admin: 09/22/18 23:26 Dose: 10 unit Labetalol HCl (Normodyne -) 400 mg PO BID [facility] Last Admin: 09/23/18 09:51 Dose: 400 mg Methadone HCl 40 mg/ Methadone (HCl 20 mg) 60 mg PO DAILY@0600 [facility] Last Admin: 09/23/18 06:19 Dose: 60 mg Pantoprazole Sodium (Protonix -) 40 mg PO DAILY [facility] Last Admin: 09/23/18 09:52 Dose: 40 mg Sodium Chloride ([place]al [place] -) 2 spray NS Q8H PRN PRN Reason: NASAL CONGESTION sob on mild exertion c/o constipation x "12 days" requesting prune juice Last Vital Signs Temp Pulse Resp BP Pulse Ox 97.7 F 62 20 144/60 92 L 09/23/18 17:00 09/23/18 17:00 09/23/18 17:00 09/23/18 17:00 09/23/18 09:00 lungs diminished sounds heart reg abd soft CBC, BMP 09/23/18 06:30 09/23/18 06:30 CBC, BMP 09/22/18 06:29 09/22/18 06:29 IMP-sony on ckd pna sob plan- diuretics for sob
[2018-09-23] MEDS ORDERED: PT OWN MED DRAWER 7, Y5N ONE (20:50)
[2018-09-23] MEDS: ATORVASTATIN CA 20 MG TABLET (FP) PO SCH (22:21)
[2018-09-23] MEDS: INSULIN (LEVEMIR) 100 UNITS/ML UNITS SQ SCH (22:29)
[2018-09-24 00:12] LABS: ARTERIAL BLD GAS O2 SATURATION 82.8 % (95-98); ARTERIAL BLOOD GAS BASE EXCESS -0.4 meq/l (-2-2); ARTERIAL BLOOD GAS PCO2 33.3 mmHg (35-45); ARTERIAL BLOOD GAS PO2 49.1 mmHg (80-105); ARTERIAL BLOOD GAS pH 7.45 (7.35-7.45)
[2018-09-24 00:21] LABS: ALLENS TEST POSITIVE
[2018-09-24] MEDS ORDERED: FUROSEMIDE 100 MG/10 ML INJECTABLE VIAL IVPB ONE (01:00)
[2018-09-24 04:05] LABS: ARTERIAL BLD GAS O2 SATURATION 93.9 % (95-98); ARTERIAL BLOOD GAS BASE EXCESS -0.3 meq/l (-2-2); ARTERIAL BLOOD GAS PO2 72.6 mmHg (80-105); ARTERIAL BLOOD GAS pH 7.43 (7.35-7.45)
[2018-09-24 04:11] LABS: ALLENS TEST POSITIVE
[2018-09-24] MEDS ORDERED: METHADONE HCL 40 MG DISPERSABLE TABLET ONE (05:28)
[2018-09-24] MEDS ORDERED: METHADONE HCL 10 MG TABLET ONE (05:28)
[2018-09-24] MEDS: INSULIN SLIDING SCALE (NOVOLOG) 1 VIAL SQ SCH ×4 (06:41→22:14)
[2018-09-24] MEDS: METHADONE 40 MG, METHADONE 20 MG PO SCH (06:41)
[2018-09-24] MEDS ORDERED: DEXTROSE 5%-WATER - 50 ML IVPB ONE (09:19)
[2018-09-24] MEDS ORDERED: cefTRIAXone SODIUM 1 GM VIAL ONE (09:19)
--- NOTE | 2018-09-24 09:58 | PN ---
Progress Note, Physician Chief Complaint: sob History of Present Illness: urinated copiously after lasix yest. felt very sob last night, and orthopneic--relieved with FM oxygen. leg swelling improved vs yest, not resolved no palpit, cp no cigs - Current Medication List Current Medications: Active Medications Albuterol/Ipratropium (Duoneb -) 1 amp NEB Q6H PRN PRN Reason: SHORTNESS OF BREATH Last Admin: 09/23/18 21:00 Dose: 1 amp Amlodipine Besylate (Norvasc -) 10 mg PO DAILY [facility] Last Admin: 09/23/18 09:52 Dose: 10 mg Artificial Tears (Artificial Tears) 2 drop OU Q8H PRN PRN Reason: DRY EYES Atorvastatin Calcium (Lipitor -) 20 mg PO [facility] Last Admin: 09/23/18 22:21 Dose: 20 mg Clopidogrel Bisulfate (Plavix -) 75 mg PO DAILY [facility] Last Admin: 09/23/18 09:52 Dose: 75 mg Doxazosin Mesylate (Cardura -) 4 mg PO DAILY [facility] Last Admin: 09/23/18 09:50 Dose: 4 mg Enoxaparin Sodium (Lovenox -) 30 mg SQ DAILY [facility] Last Admin: 09/23/18 09:51 Dose: 30 mg Hydralazine HCl (Apresoline -) 100 mg PO BID [facility] Last Admin: 09/23/18 22:21 Dose: 100 mg Ceftriaxone Sodium 1 gm/ (Dextrose) 50 mls @ 100 mls/hr IVPB DAILY [facility] Last Admin: 09/23/18 09:52 Dose: 100 mls/hr Insulin Aspart (Novolog Vial Sliding Scale -) 1 vial SQ [facility]; Protocol Last Admin: 09/24/18 06:41 Dose: Not Given Insulin Detemir (Levemir Vial) 10 units SQ [facility] Last Admin: 09/23/18 22:29 Dose: 10 unit Labetalol HCl (Normodyne -) 400 mg PO BID [facility] Last Admin: 09/23/18 22:21 Dose: 400 mg Methadone HCl 40 mg/ Methadone (HCl 20 mg) 60 mg PO DAILY@0600 [facility] Last Admin: 09/24/18 06:41 Dose: 60 mg Pantoprazole Sodium (Protonix -) 40 mg PO DAILY [facility] Last Admin: 09/23/18 09:52 Dose: 40 mg Sodium Chloride ([place] Nasal [place] -) 2 spray NS Q8H PRN PRN Reason: NASAL CONGESTION Last Admin: 09/23/18 22:20 Dose: 2 spray - Objective Vital Signs: Vital Signs Temperature 97.8 F 09/24/18 06:00 Pulse Rate 69 09/24/18 06:00 Respiratory Rate 20 09/24/18 06:00 Blood Pressure 165/83 09/24/18 06:00 O2 Sat by Pulse Oximetry (%) 91 L 09/24/18 02:40 Constitutional: Yes: No Distress, Calm Eyes: No: Sclera Icterus HENT: No: Nasal Congestion Cardiovascular: Yes: Regular Rate and Rhythm, JVD, S1, S2, Other (PMI non diplaced). No: Gallop, Murmur Respiratory: Yes: CTA Bilaterally. No: Accessory Muscle Use, Rales, Wheezes Gastrointestinal: Yes: Normal Bowel Sounds, Soft. No: Tenderness Musculoskeletal: Yes: Other (No kyphosis) Extremities: No: Cold, Cyanosis Edema: Yes (2+ LE) Integumentary: No: Jaundice Neurological: Yes: Alert, Oriented (x3) Psychiatric: No: Agitated Labs: CBC, BMP 09/23/18 06:30 09/23/18 06:30 INR, PTT INR 1.11 (0.83-1.09) H 09/17/18 12:23 Assessment/Plan mibi 2015 no ischemia, nl EF EKG: sinus, PVC, no ischemic changes echo 09/2018 nl LV function, mild MAC, tr MR, tr AR, RVSP 32 mmHg tele: sinus CXR: extensive bilat infiltrates with R effusion, worse 68M h/o HTN, DM, HLD, PAD s/p femoral stent, prior smoker, R sided lung ca s/p partial resection p/w shortness of breath shortness of breath, PNA, acute diastolic CHF exacerbation: - likely multifactorial - h/o lung ca s/p resection, findings concerning for PNA - abx, nebs per primary, pulm - elevated BNP with congestion on CXR, likely component of HF - nl EF in 2016 - echo nl LV function - received lasix 40 IV daily--was held for elevated BUN/Cr, received IVF--09/23 with mild edema, worsening resp status, weight up 193 to 200, likely component of congestion. received dose of lasix 80 IV x 2. - 09/24: wt down 3 lbs vs yesterday. remains overloaded (JVD, edema) and sob with orthopnea. CXR worse, near white-out on right. lasix 80 iv BID to start-- daily BMP f/u -rpt CXR in am BRET on CKD: -unknown baseline function -likely component of cardiorenal syndrome here -renal following HTN - holding home diuretic, valsartan - bp reasonable at present - cont current meds HLD: - cont statin PAD: - cont statin, aspirin
[2018-09-24] MEDS: hydrALAZINE HCL 50 MG TABLET (FP) PO SCH ×2 (10:13→22:11)
[2018-09-24] MEDS: CEFTRIAXONE 1 GM in DEXTROSE 5%-WATER - 50 ML IVPB SCH (10:14)
[2018-09-24] MEDS: CLOPIDOGREL BISULFATE 75 MG TABLET (FP) PO SCH (10:14)
[2018-09-24] MEDS: ENOXAPARIN NA (PORCINE) 30 MG/0.3 ML DISP.SYRIN SQ SCH (10:14)
[2018-09-24] MEDS: LABETALOL HCL 200 MG TABLET (FP) PO SCH ×2 (10:14→22:11)
[2018-09-24] MEDS: DOXAZOSIN MESYLATE 4 MG TABLET PO SCH (10:14)
[2018-09-24] MEDS: amLODIPine BESYLATE 10 MG TABLET (FP) PO SCH (10:14)
[2018-09-24] MEDS: PANTOPRAZOLE 40 MG TABLET (FP) PO SCH (10:14)
--- NOTE | 2018-09-24 10:30 | PN ---
Progress Note (short form) - Note Progress Note: pt seen/ examined feels little better decreased sob. Vital Signs Temp 98 F 09/24/18 10:00 Pulse 68 09/24/18 10:00 Resp 20 09/24/18 10:00 BP 170/60 09/24/18 10:00 Pulse Ox 91 L 09/24/18 02:40 Intake & Output 09/23/18 09/23/18 09/24/18 11:59 23:59 11:59 Intake Total 10 350 250 Output Total 1275 1900 Balance 10 -925 -1650 Weight 200 lb 197 lb 6.4 oz Intake: IV 10 10 Sl hand 10 10 IVPB 50 Oral 300 240 Output: Urine 1275 1900 Void 1275 1900 Other: Voiding Method Toilet Toilet Toilet # Unmeasured Voids Void 1 1 Bowel Movement No Weight Measurement Method Standing Scale Standing Scale Active Medications Albuterol/Ipratropium (Duoneb -) 1 amp NEB Q6H PRN PRN Reason: SHORTNESS OF BREATH Last Admin: 09/23/18 21:00 Dose: 1 amp Amlodipine Besylate (Norvasc -) 10 mg PO DAILY [facility] Last Admin: 09/24/18 10:14 Dose: 10 mg Artificial Tears (Artificial Tears) 2 drop OU Q8H PRN PRN Reason: DRY EYES Atorvastatin Calcium (Lipitor -) 20 mg PO [facility] Last Admin: 09/23/18 22:21 Dose: 20 mg Clopidogrel Bisulfate (Plavix -) 75 mg PO DAILY [facility] Last Admin: 09/24/18 10:14 Dose: 75 mg Doxazosin Mesylate (Cardura -) 4 mg PO DAILY [facility] Last Admin: 09/24/18 10:14 Dose: 4 mg Enoxaparin Sodium (Lovenox -) 30 mg SQ DAILY [facility] Last Admin: 09/24/18 10:14 Dose: 30 mg Hydralazine HCl (Apresoline -) 100 mg PO BID [facility] Last Admin: 09/24/18 10:13 Dose: 100 mg Ceftriaxone Sodium 1 gm/ (Dextrose) 50 mls @ 100 mls/hr IVPB DAILY [facility] Last Admin: 09/24/18 10:14 Dose: 100 mls/hr Insulin Aspart (Novolog Vial Sliding Scale -) 1 vial SQ [facility]; Protocol Last Admin: 06/17/19 06:41 Dose: Not Given Insulin Detemir (Levemir Vial) 10 units SQ HS [facility] Last Admin: 09/23/18 22:29 Dose: 10 unit Labetalol HCl (Normodyne -) 400 mg PO BID [facility] Last Admin: 09/24/18 10:14 Dose: 400 mg Methadone HCl 40 mg/ Methadone (HCl 20 mg) 60 mg PO DAILY@0600 [facility] Last Admin: 09/24/18 06:41 Dose: 60 mg Pantoprazole Sodium (Protonix -) 40 mg PO DAILY [facility] Last Admin: 09/24/18 10:14 Dose: 40 mg Sodium Chloride ([place] Nasal [place] -) 2 spray NS Q8H PRN PRN Reason: NASAL CONGESTION Last Admin: 09/23/18 22:20 Dose: 2 spray CBC, BMP 09/23/18 06:30 09/23/18 06:30 cxr - worse. Physical Exam S1 s2 RRR Lungs decreased at bases -- R> L abd- soft, NT JVD+ edema+ PLAN i/v lasix continue abx continue other meds f/u labs Discussed With Dr. Moser also Thoracocentesis ? Pt on plavix cardiology to follow/ will discuss. discussed with nursing staff also will follow Problem List - Problems (1) Pneumonia Code(s): J18.9 - PNEUMONIA, UNSPECIFIED ORGANISM (2) Acute and chronic respiratory failure Code(s): J96.20 - ACUTE AND CHR RESP FAILURE, UNSP W HYPOXIA OR HYPERCAPNIA (3) CHF exacerbation Code(s): I50.9 - HEART FAILURE, UNSPECIFIED (4) History of lung cancer Code(s): Z85.118 - PERSONAL HISTORY OF MALIGNANT NEOPLASM OF BRONCHUS AND LUNG (5) Diabetes Code(s): E11.9 - TYPE 2 DIABETES MELLITUS WITHOUT COMPLICATIONS (6) Chronic renal insufficiency, stage III (moderate) Code(s): N18.3 - CHRONIC KIDNEY DISEASE, STAGE 3 (MODERATE)
--- NOTE | 2018-09-24 10:36 | PN ---
Progress Note, Physician History of Present Illness: pulmonary alert,on bipap,less dyspneic,hypoxic on nasal cannula - Current Medication List Current Medications: Active Medications Albuterol/Ipratropium (Duoneb -) 1 amp NEB Q6H PRN PRN Reason: SHORTNESS OF BREATH Last Admin: 09/23/18 21:00 Dose: 1 amp Amlodipine Besylate (Norvasc -) 10 mg PO DAILY [facility] Last Admin: 09/24/18 10:14 Dose: 10 mg Artificial Tears (Artificial Tears) 2 drop OU Q8H PRN PRN Reason: DRY EYES Atorvastatin Calcium (Lipitor -) 20 mg PO [facility] Last Admin: 09/23/18 22:21 Dose: 20 mg Clopidogrel Bisulfate (Plavix -) 75 mg PO DAILY [facility] Last Admin: 09/24/18 10:14 Dose: 75 mg Doxazosin Mesylate (Cardura -) 4 mg PO DAILY [facility] Last Admin: 09/24/18 10:14 Dose: 4 mg Enoxaparin Sodium (Lovenox -) 30 mg SQ DAILY [facility] Last Admin: 09/24/18 10:14 Dose: 30 mg Hydralazine HCl (Apresoline -) 100 mg PO BID [facility] Last Admin: 09/24/18 10:13 Dose: 100 mg Ceftriaxone Sodium 1 gm/ (Dextrose) 50 mls @ 100 mls/hr IVPB DAILY [facility] Last Admin: 09/24/18 10:14 Dose: 100 mls/hr Insulin Aspart (Novolog Vial Sliding Scale -) 1 vial SQ [facility]; Protocol Last Admin: 09/24/18 06:41 Dose: Not Given Insulin Detemir (Levemir Vial) 10 units SQ [facility] Last Admin: 09/23/18 22:29 Dose: 10 unit Labetalol HCl (Normodyne -) 400 mg PO BID [facility] Last Admin: 09/24/18 10:14 Dose: 400 mg Methadone HCl 40 mg/ Methadone (HCl 20 mg) 60 mg PO DAILY@0600 [facility] Last Admin: 09/24/18 06:41 Dose: 60 mg Pantoprazole Sodium (Protonix -) 40 mg PO DAILY [facility] Last Admin: 09/24/18 10:14 Dose: 40 mg Sodium Chloride ([place] Nasal [place] -) 2 spray NS Q8H PRN PRN Reason: NASAL CONGESTION Last Admin: 09/23/18 22:20 Dose: 2 spray - Objective Vital Signs: Vital Signs Temperature 98 F 09/24/18 10:00 Pulse Rate 68 09/24/18 10:00 Respiratory Rate 20 09/24/18 10:00 Blood Pressure 170/60 09/24/18 10:00 O2 Sat by Pulse Oximetry (%) 91 L 09/24/18 02:40 Constitutional: Yes: Well Nourished, Calm, Mild Distress Eyes: Yes: WNL HENT: Yes: WNL Neck: Yes: WNL Cardiovascular: Yes: Regular Rate and Rhythm, S1, S2 Respiratory: Yes: Rales (bibasilar crackles) Gastrointestinal: Yes: Normal Bowel Sounds, Soft Extremities: Yes: WNL Edema: No Labs: CBC, BMP 09/23/18 06:30 09/23/18 06:30 INR, PTT INR 1.11 (0.83-1.09) H 09/17/18 12:23 Laboratory Tests 09/24/18 03:55 ABG pH 7.43 ABG pCO2 at Pt Temp 36.0 ABG pO2 at Pt Temp 72.6 L ABG HCO3 23.4 ABG O2 Sat (Measured) 93.9 L ABG O2 Content 10.7 L Oxygen Flow Rate 50% Vent Rate 14 Pressure Support Vent 14/6 Problem List - Problems (1) Fiegv-jn-vgikrsp kidney injury Code(s): N17.9 - ACUTE KIDNEY FAILURE, UNSPECIFIED; N18.9 - CHRONIC KIDNEY DISEASE, UNSPECIFIED (2) CHF exacerbation Code(s): I50.9 - HEART FAILURE, UNSPECIFIED (3) Chronic renal insufficiency, stage III (moderate) Code(s): N18.3 - CHRONIC KIDNEY DISEASE, STAGE 3 (MODERATE) (4) Diabetes Code(s): E11.9 - TYPE 2 DIABETES MELLITUS WITHOUT COMPLICATIONS (5) History of lung cancer Code(s): Z85.118 - PERSONAL HISTORY OF MALIGNANT NEOPLASM OF BRONCHUS AND LUNG (6) Normocytic anemia Code(s): D64.9 - ANEMIA, UNSPECIFIED (7) Dyspnea Code(s): R06.00 - DYSPNEA, UNSPECIFIED Assessment/Plan IMP DYSPNEA ACUTE HYPOXEMIC RESPIRATORY FAILURE BILATERAL INFILTRATES ACUTE ON CHRONIC CHF R/O PNEUMONIA ACUTE ON CHRONIC KIDNEY INJURY ANEMIA HTN DM H/O LUNG CA S/P RESECTION 1985 PLAN IV LASIX O2 ABX F/U CHEST X-RAYS MONITOR LYTES,RENAL FUNCTION MONITOR CBC DAILY WT STRICT I+Os DR MARIE Problem List - Problems (1) Mtkgm-va-vwweudf kidney injury Code(s): N17.9 - ACUTE KIDNEY FAILURE, UNSPECIFIED; N18.9 - CHRONIC KIDNEY DISEASE, UNSPECIFIED (2) CHF exacerbation Code(s): I50.9 - HEART FAILURE, UNSPECIFIED (3) Chronic renal insufficiency, stage III (moderate) Code(s): N18.3 - CHRONIC KIDNEY DISEASE, STAGE 3 (MODERATE) (4) Diabetes Code(s): E11.9 - TYPE 2 DIABETES MELLITUS WITHOUT COMPLICATIONS (5) History of lung cancer Code(s): Z85.118 - PERSONAL HISTORY OF MALIGNANT NEOPLASM OF BRONCHUS AND LUNG (6) Normocytic anemia Code(s): D64.9 - ANEMIA, UNSPECIFIED (7) Dyspnea Code(s): R06.00 - DYSPNEA, UNSPECIFIED
[2018-09-24] MEDS ORDERED: FUROSEMIDE 40 MG/4 ML INJECTABLE VIAL IVPB ONE (11:10)
[2018-09-24 11:31] LABS: CALCIUM 8.4 mg/dL (8.5-10.1); CREATININE 3.6 mg/dL (0.55-1.3); POTASSIUM 4.2 mmol/L (3.5-5.1)
[2018-09-24] MEDS ORDERED: INSULIN (NOVOLOG) ASPART 100 UNITS/ML 10ML VIAL ONE (11:49)
[2018-09-24 12:24] LABS: BLOOD UREA NITROGEN 115.2 mg/dL (7-18)
[2018-09-24] MEDS: FUROSEMIDE 40 MG/4 ML INJECTABLE VIAL IVPB SCH (15:21)
--- NOTE | 2018-09-24 17:09 | PN ---
Progress Note (short form) - Note Progress Note: Renal follow up for BRET Pt seen and examined at the bedside awake and alert no sob improving leg edmea persists making urine Vital Signs Temperature 98 F 09/24/18 10:00 Pulse Rate 62 09/24/18 14:00 Respiratory Rate 20 09/24/18 10:00 Blood Pressure 130/63 09/24/18 14:00 O2 Sat by Pulse Oximetry (%) 93 L 09/24/18 15:48 Intake & Output 09/21/18 09/22/18 09/23/18 09/24/18 23:59 23:59 23:59 23:59 Intake Total 300 1164 360 250 Output Total 200 1275 2300 Balance 300 244 -423 -5330 Weight 89.176 kg 89.448 kg 90.718 kg 89.358 kg NAD RRR, no M/R dec BS, mild rales soft, obese NT/ND + edema in LE CXR- left perihilar infiltrate, large right effusion with infiltrate ECHO- normal LV/RV function, trace MR CBC, BMP 09/23/18 06:30 09/24/18 10:35 Current Medications Albuterol/Ipratropium (Duoneb -) 1 amp NEB Q6H PRN PRN Reason: SHORTNESS OF BREATH Last Admin: 09/23/18 21:00 Dose: 1 amp Amlodipine Besylate (Norvasc -) 10 mg PO DAILY [facility] Last Admin: 09/24/18 10:14 Dose: 10 mg Artificial Tears (Artificial Tears) 2 drop OU Q8H PRN PRN Reason: DRY EYES Atorvastatin Calcium (Lipitor -) 20 mg PO [facility] Last Admin: 09/23/18 22:21 Dose: 20 mg Clopidogrel Bisulfate (Plavix -) 75 mg PO DAILY [facility] Last Admin: 09/24/18 10:14 Dose: 75 mg Doxazosin Mesylate (Cardura -) 4 mg PO DAILY [facility] Last Admin: 09/24/18 10:14 Dose: 4 mg Enoxaparin Sodium (Lovenox -) 30 mg SQ DAILY [facility] Last Admin: 09/24/18 10:14 Dose: 30 mg Furosemide (Lasix Injection -) 80 mg IVPB BID@0600,1400 [facility] Last Admin: 09/24/18 15:21 Dose: 80 mg Hydralazine HCl (Apresoline -) 100 mg PO BID [facility] Last Admin: 09/24/18 10:13 Dose: 100 mg Ceftriaxone Sodium 1 gm/ (Dextrose) 50 mls @ 100 mls/hr IVPB DAILY [facility] Last Admin: 09/24/18 10:14 Dose: 100 mls/hr Insulin Aspart (Novolog Vial Sliding Scale -) 1 vial SQ [facility]; Protocol Last Admin: 09/24/18 16:52 Dose: 3 units Insulin Detemir (Levemir Vial) 10 units SQ HS [facility] Last Admin: 09/23/18 22:29 Dose: 10 unit Labetalol HCl (Normodyne -) 400 mg PO BID [facility] Last Admin: 09/24/18 10:14 Dose: 400 mg Methadone HCl 40 mg/ Methadone (HCl 20 mg) 60 mg PO DAILY@0600 [facility] Last Admin: 09/24/18 06:41 Dose: 60 mg Pantoprazole Sodium (Protonix -) 40 mg PO DAILY [facility] Last Admin: 09/24/18 10:14 Dose: 40 mg Sodium Chloride ([place] Nasal [place] -) 2 spray NS Q8H PRN PRN Reason: NASAL CONGESTION Last Admin: 09/23/18 22:20 Dose: 2 spray 68 year old gentleman with hx of of hypertension, DM on insulin, PVD s/ p Le stents, BPH, Hx of Lung cancer s/p resection who presented with SOB and noted to have BUN/Cr of 79/3.2. #Acute shortness of breath form diastolic HF vs. PNA #Acute on chronic renal insufficiency from renal hypoprofusion vs. acute GN (on Hydralazine r/o drug induced lupus) #Anemia #Hypertension #BPH pt requiring diuretics for volume management, was unable to tolerate IVF BUN/Cr remains elevated, would continue IV diuretics until pt is euvolemic UPCR is 3.2, CHICHI negative ANCA is pending Urine Legionella Ag negative Continue Ceftriaxone as per primary Renal imgaing showed no obstruction but did show lesion on spleen, would need CT with contrast to evalulate but should wait until renal function is improved Trend daily weights hold LUKE/ARB and potassium sparing diuretics at this time continue labetalol, amlodipine and titrate to goal BP < 140/90 continue insulin as per primary continue marcia Iniguez DO
[2018-09-24 19:11] LABS: ATYPICAL pANCA <1:20 titer (Neg:<1:20); C-ANCA <1:20 titer (Neg:<1:20)
[2018-09-24] MEDS: ALBUTEROL SO4 2.5/IPRATROPIUM 0.5 INH SOL 3 ML VIAL.NEB. NEB PRN (21:25)
[2018-09-24] MEDS: ATORVASTATIN CA 20 MG TABLET (FP) PO SCH (22:11)
[2018-09-24] MEDS: INSULIN (LEVEMIR) 100 UNITS/ML UNITS SQ SCH (22:11)
[2018-09-25] MEDS ORDERED: METHADONE HCL 40 MG DISPERSABLE TABLET ONE (06:35)
[2018-09-25] MEDS ORDERED: METHADONE HCL 10 MG TABLET ONE (06:35)
[2018-09-25] MEDS: METHADONE 40 MG, METHADONE 20 MG PO SCH (06:44)
[2018-09-25] MEDS: FUROSEMIDE 40 MG/4 ML INJECTABLE VIAL IVPB SCH ×2 (06:45→14:31)
[2018-09-25] MEDS: INSULIN SLIDING SCALE (NOVOLOG) 1 VIAL SQ SCH ×4 (06:48→21:45)
[2018-09-25 08:03] LABS: BASO % 0.3 % (0-2.0); EOS % 1.2 % (0-4.5); HEMATOCRIT 24.2 % (35.4-49); HEMOGLOBIN 8.2 GM/dL (11.7-16.9); LYMPH % 4.3 % (8-40); MCH 28.9 pg (25.7-33.7); MCHC 33.7 g/dl (32.0-35.9); MEAN CELL VOLUME 85.7 fl (80-96); NEUT % 88.2 % (42.8-82.8); PLATELET COUNT 400 K/MM3 (134-434); RBC 2.82 M/mm3 (4.00-5.60); RDW 14.5 % (11.9-15.9); WHITE BLOOD COUNT 15.7 K/mm3 (4.0-10.0)
[2018-09-25 08:37] LABS: ALBUMIN 2.1 g/dl (3.4-5.0); BILIRUBIN,TOTAL 0.3 mg/dL (0.2-1); CALCIUM 8.5 mg/dL (8.5-10.1); CREATININE 3.7 mg/dL (0.55-1.3); MAGNESIUM 2.3 mg/dL (1.8-2.4); PHOSPHOROUS 7.1 mg/dL (2.5-4.9); POTASSIUM 3.8 mmol/L (3.5-5.1); TOT PROT 5.8 g/dl (6.4-8.2)
[2018-09-25 08:46] LABS: BLOOD UREA NITROGEN 126.6 mg/dL (7-18)
[2018-09-25] MEDS ORDERED: cefTRIAXone SODIUM 1 GM VIAL ONE (09:41)
[2018-09-25] MEDS ORDERED: DEXTROSE 5%-WATER - 50 ML IVPB ONE (09:41)
[2018-09-25] MEDS ORDERED: PT OWN MED DRAWER 7, Y5N ONE (09:41)
[2018-09-25] MEDS: amLODIPine BESYLATE 10 MG TABLET (FP) PO SCH (09:54)
[2018-09-25] MEDS: hydrALAZINE HCL 50 MG TABLET (FP) PO SCH ×2 (09:54→21:40)
[2018-09-25] MEDS: DOXAZOSIN MESYLATE 4 MG TABLET PO SCH (09:54)
[2018-09-25] MEDS: CEFTRIAXONE 1 GM in DEXTROSE 5%-WATER - 50 ML IVPB SCH (09:55)
[2018-09-25] MEDS: PANTOPRAZOLE 40 MG TABLET (FP) PO SCH (09:55)
[2018-09-25] MEDS: LABETALOL HCL 200 MG TABLET (FP) PO SCH ×2 (09:55→21:40)
[2018-09-25] MEDS: CLOPIDOGREL BISULFATE 75 MG TABLET (FP) PO SCH (09:55)
--- NOTE | 2018-09-25 10:58 | PN ---
Progress Note (short form) - Note Progress Note: events noted SOB better today per Pulmonary no chest pain saturation decreased to 80% on NC-- not on ventimask Vital Signs - 24 hr 09/24/18 09/24/18 09/25/18 20:35 21:00 02:04 Temperature 98.0 F 97.8 F Pulse Rate 73 69 Respiratory 20 20 Rate Blood Pressure 150/65 115/76 O2 Sat by Pulse 90 L Oximetry (%) 09/25/18 09/25/18 09/25/18 06:35 09:00 14:00 Temperature 98.0 F 98 F 97.8 F Pulse Rate 80 68 65 Respiratory 20 20 Rate Blood Pressure 140/109 H 156/72 146/62 O2 Sat by Pulse 94 L Oximetry (%) Current Medications Generic Name Dose Route Start Last Admin Trade Name Freq PRN Reason Stop Dose Admin Albuterol/Ipratropium 1 amp 09/22/18 23:50 09/24/18 21:25 Duoneb - NEB 1 amp Q6H PRN Administration SHORTNESS OF BREATH Artificial Tears 2 drop 09/20/18 16:13 Artificial Tears OU Q8H PRN DRY EYES Atorvastatin Calcium 20 mg 09/17/18 22:00 09/24/18 22:11 Lipitor - PO 20 mg HS [facility] Administration Calcium Acetate 667 mg 09/25/18 17:30 09/25/18 17:35 Phoslo - PO 667 mg TIDCM [facility] Administration Hydralazine HCl 100 mg 09/19/18 22:00 09/25/18 09:54 Apresoline - PO 100 mg BID [facility] Administration Ceftriaxone Sodium 1 gm/ 50 mls @ 100 mls/hr 09/19/18 10:00 09/25/18 09:55 Dextrose IVPB 100 mls/hr DAILY [facility] Administration Furosemide 100 mg/ Dextrose 100 mls @ 10 mls/hr 09/25/18 20:00 IVPB TITR [facility] 10 MG/HR Insulin Aspart 1 vial 09/17/18 16:30 09/25/18 17:37 Novolog Vial Sliding Scale - SQ 5 units ACHS [facility] Administration Protocol Insulin Detemir 10 units 09/17/18 22:00 09/24/18 22:11 Levemir Vial SQ 10 unit HS [facility] Administration Labetalol HCl 400 mg 09/19/18 10:40 09/25/18 09:55 Normodyne - PO 400 mg BID [facility] Administration Methadone HCl 40 mg/ Methadone 60 mg 09/19/18 06:00 09/25/18 06:44 HCl 20 mg PO 60 mg DAILY@0600 [facility] Administration Sodium Chloride 2 spray 09/23/18 15:50 09/23/18 22:20 [place] Nasal [place] - NS 2 spray Q8H PRN Administration NASAL CONGESTION Laboratory Results - last 24 hr 09/20/18 09/24/18 09/25/18 18:50 22:10 06:42 WBC RBC Hgb Hct MCV MCH MCHC RDW Plt Count MPV Absolute Neuts (auto) Neutrophils % Lymphocytes % Monocytes % Eosinophils % Basophils % Nucleated RBC % Sodium Potassium Chloride Carbon Dioxide Anion Gap BUN Creatinine Est GFR (CKD-EPI)AfAm Est GFR (CKD-EPI)NonAf POC Glucometer 212 72 Random Glucose Calcium Phosphorus Magnesium Total Bilirubin AST ALT Alkaline Phosphatase Total Protein Albumin c-ANCA <1:20 Proteinase 3 (PR3) <3.5 p-ANCA <1:20 Atypical p-ANCA <1:20 Myeloperoxidase Ab <9.0 09/25/18 09/25/18 09/25/18 07:30 07:30 12:10 WBC 15.7 H RBC 2.82 L Hgb 8.2 L Hct 24.2 L MCV 85.7 MCH 28.9 MCHC 33.7 RDW 14.5 Plt Count 400 MPV 8.0 Absolute Neuts (auto) 13.9 H Neutrophils % 88.2 H Lymphocytes % 4.3 L Monocytes % 6.0 Eosinophils % 1.2 Basophils % 0.3 Nucleated RBC % 0 Sodium 137 Potassium 3.8 Chloride 100 Carbon Dioxide 27 Anion Gap 11 BUN 126.6 H* Creatinine 3.7 H Est GFR (CKD-EPI)AfAm 18.09 Est GFR (CKD-EPI)NonAf 15.61 POC Glucometer 124 Random Glucose 78 Calcium 8.5 Phosphorus 7.1 H Magnesium 2.3 Total Bilirubin 0.3 AST 28 ALT 23 Alkaline Phosphatase 173 H Total Protein 5.8 L Albumin 2.1 L c-ANCA Proteinase 3 (PR3) p-ANCA Atypical p-ANCA Myeloperoxidase Ab 09/25/18 17:26 WBC RBC Hgb Hct MCV MCH MCHC RDW Plt Count MPV Absolute Neuts (auto) Neutrophils % Lymphocytes % Monocytes % Eosinophils % Basophils % Nucleated RBC % Sodium Potassium Chloride Carbon Dioxide Anion Gap BUN Creatinine Est GFR (CKD-EPI)AfAm Est GFR (CKD-EPI)NonAf POC Glucometer 228 Random Glucose Calcium Phosphorus Magnesium Total Bilirubin AST ALT Alkaline Phosphatase Total Protein Albumin c-ANCA Proteinase 3 (PR3) p-ANCA Atypical p-ANCA Myeloperoxidase Ab S1 s2 RRR Lungs decreased abd- soft, NT JVD+ edema+ PLAN CHF--on iv Lasix will speak with Renal for dialysis -- may do short term trial Renal function -- worsening has splenic lesion-- can not do contrast imaging due to decreased renal function can not do thoracentesis due to plavix-- but ok to hold if needed per Cardiology monitor renal function Problem List - Problems (1) BRET (acute kidney injury) Code(s): N17.9 - ACUTE KIDNEY FAILURE, UNSPECIFIED (2) Acute and chronic respiratory failure Code(s): J96.20 - ACUTE AND CHR RESP FAILURE, UNSP W HYPOXIA OR HYPERCAPNIA (3) Rfgzl-jk-qpzvyrz kidney injury Code(s): N17.9 - ACUTE KIDNEY FAILURE, UNSPECIFIED; N18.9 - CHRONIC KIDNEY DISEASE, UNSPECIFIED (4) CHF exacerbation Code(s): I50.9 - HEART FAILURE, UNSPECIFIED (5) Diabetes Code(s): E11.9 - TYPE 2 DIABETES MELLITUS WITHOUT COMPLICATIONS
--- NOTE | 2018-09-25 11:16 | PN ---
Progress Note, Physician History of Present Illness: pulmonary alert,feeling better,less dyspneic,remains hypoxic on nasal cannula sat 86% - Current Medication List Current Medications: Active Medications Albuterol/Ipratropium (Duoneb -) 1 amp NEB Q6H PRN PRN Reason: SHORTNESS OF BREATH Last Admin: 09/24/18 21:25 Dose: 1 amp Amlodipine Besylate (Norvasc -) 10 mg PO DAILY [facility] Last Admin: 09/25/18 09:54 Dose: 10 mg Artificial Tears (Artificial Tears) 2 drop OU Q8H PRN PRN Reason: DRY EYES Atorvastatin Calcium (Lipitor -) 20 mg PO HS [facility] Last Admin: 09/24/18 22:11 Dose: 20 mg Clopidogrel Bisulfate (Plavix -) 75 mg PO DAILY [facility] Last Admin: 09/25/18 09:55 Dose: 75 mg Doxazosin Mesylate (Cardura -) 4 mg PO DAILY [facility] Last Admin: 09/25/18 09:54 Dose: 4 mg Furosemide (Lasix Injection -) 80 mg IVPB BID@0600,1400 [facility] Last Admin: 09/25/18 06:45 Dose: 80 mg Hydralazine HCl (Apresoline -) 100 mg PO BID [facility] Last Admin: 09/25/18 09:54 Dose: 100 mg Ceftriaxone Sodium 1 gm/ (Dextrose) 50 mls @ 100 mls/hr IVPB DAILY [facility] Last Admin: 09/25/18 09:55 Dose: 100 mls/hr Insulin Aspart (Novolog Vial Sliding Scale -) 1 vial SQ [facility]; Protocol Last Admin: 09/25/18 06:48 Dose: Not Given Insulin Detemir (Levemir Vial) 10 units SQ [facility] Last Admin: 09/24/18 22:11 Dose: 10 unit Labetalol HCl (Normodyne -) 400 mg PO BID [facility] Last Admin: 09/25/18 09:55 Dose: 400 mg Methadone HCl 40 mg/ Methadone (HCl 20 mg) 60 mg PO DAILY@0600 [facility] Last Admin: 09/25/18 06:44 Dose: 60 mg Pantoprazole Sodium (Protonix -) 40 mg PO DAILY [facility] Last Admin: 09/25/18 09:55 Dose: 40 mg Sodium Chloride ([place] Nasal [place] -) 2 spray NS Q8H PRN PRN Reason: NASAL CONGESTION Last Admin: 09/23/18 22:20 Dose: 2 spray - Objective Vital Signs: Vital Signs Temperature 98 F 09/25/18 09:00 Pulse Rate 68 09/25/18 09:00 Respiratory Rate 20 09/25/18 09:00 Blood Pressure 156/72 09/25/18 09:00 O2 Sat by Pulse Oximetry (%) 90 L 09/24/18 21:00 Constitutional: Yes: Well Nourished, Calm Eyes: Yes: WNL HENT: Yes: WNL Neck: Yes: WNL Cardiovascular: Yes: WNL, Regular Rate and Rhythm, S1, S2 Respiratory: Yes: Rales (bilateral crackles) Gastrointestinal: Yes: Normal Bowel Sounds, Soft Extremities: Yes: WNL Edema: Yes Labs: CBC, BMP 09/25/18 07:30 09/25/18 07:30 INR, PTT INR 1.11 (0.83-1.09) H 09/17/18 12:23 - ....Imaging Chest X-ray: Report Reviewed, Image Reviewed (mild improvement) Problem List - Problems (1) Piwjs-rk-rbpjcce kidney injury Code(s): N17.9 - ACUTE KIDNEY FAILURE, UNSPECIFIED; N18.9 - CHRONIC KIDNEY DISEASE, UNSPECIFIED (2) CHF exacerbation Code(s): I50.9 - HEART FAILURE, UNSPECIFIED (3) Chronic renal insufficiency, stage III (moderate) Code(s): N18.3 - CHRONIC KIDNEY DISEASE, STAGE 3 (MODERATE) (4) Diabetes Code(s): E11.9 - TYPE 2 DIABETES MELLITUS WITHOUT COMPLICATIONS (5) History of lung cancer Code(s): Z85.118 - PERSONAL HISTORY OF MALIGNANT NEOPLASM OF BRONCHUS AND LUNG (6) Normocytic anemia Code(s): D64.9 - ANEMIA, UNSPECIFIED (7) Dyspnea Code(s): R06.00 - DYSPNEA, UNSPECIFIED Assessment/Plan IMP DYSPNEA ACUTE HYPOXEMIC RESPIRATORY FAILURE BILATERAL INFILTRATES ACUTE ON CHRONIC CHF R/O PNEUMONIA ACUTE ON CHRONIC KIDNEY INJURY ANEMIA HTN DM H/O LUNG CA S/P RESECTION 1985 PLAN IV LASIX PER CARDIOLOGY O2 ABX F/U CHEST X-RAYS MONITOR LYTES,RENAL FUNCTION MONITOR CBC DAILY WT STRICT I+Os DR MARIE Problem List - Problems (1) Peotc-bz-glygzrs kidney injury Code(s): N17.9 - ACUTE KIDNEY FAILURE, UNSPECIFIED; N18.9 - CHRONIC KIDNEY DISEASE, UNSPECIFIED (2) CHF exacerbation Code(s): I50.9 - HEART FAILURE, UNSPECIFIED (3) Chronic renal insufficiency, stage III (moderate) Code(s): N18.3 - CHRONIC KIDNEY DISEASE, STAGE 3 (MODERATE) (4) Diabetes Code(s): E11.9 - TYPE 2 DIABETES MELLITUS WITHOUT COMPLICATIONS (5) History of lung cancer Code(s): Z85.118 - PERSONAL HISTORY OF MALIGNANT NEOPLASM OF BRONCHUS AND LUNG (6) Normocytic anemia Code(s): D64.9 - ANEMIA, UNSPECIFIED (7) Dyspnea Code(s): R06.00 - DYSPNEA, UNSPECIFIED
--- NOTE | 2018-09-25 11:57 | PN ---
Progress Note (short form) - Note Progress Note: s: breathing feels better, no chest pain, palps, dizziness. edema improving as well Current Medications Albuterol/Ipratropium (Duoneb -) 1 amp NEB Q6H PRN PRN Reason: SHORTNESS OF BREATH Last Admin: 09/24/18 21:25 Dose: 1 amp Amlodipine Besylate (Norvasc -) 10 mg PO DAILY [facility] Last Admin: 09/25/18 09:54 Dose: 10 mg Artificial Tears (Artificial Tears) 2 drop OU Q8H PRN PRN Reason: DRY EYES Atorvastatin Calcium (Lipitor -) 20 mg PO [facility] Last Admin: 09/24/18 22:11 Dose: 20 mg Clopidogrel Bisulfate (Plavix -) 75 mg PO DAILY [facility] Last Admin: 09/25/18 09:55 Dose: 75 mg Doxazosin Mesylate (Cardura -) 4 mg PO DAILY [facility] Last Admin: 09/25/18 09:54 Dose: 4 mg Furosemide (Lasix Injection -) 80 mg IVPB BID@0600,1400 [facility] Last Admin: 09/25/18 06:45 Dose: 80 mg Hydralazine HCl (Apresoline -) 100 mg PO BID [facility] Last Admin: 09/25/18 09:54 Dose: 100 mg Ceftriaxone Sodium 1 gm/ (Dextrose) 50 mls @ 100 mls/hr IVPB DAILY [facility] Last Admin: 09/25/18 09:55 Dose: 100 mls/hr Insulin Aspart (Novolog Vial Sliding Scale -) 1 vial SQ [facility]; Protocol Last Admin: 09/25/18 06:48 Dose: Not Given Insulin Detemir (Levemir Vial) 10 units SQ [facility] Last Admin: 09/24/18 22:11 Dose: 10 unit Labetalol HCl (Normodyne -) 400 mg PO BID [facility] Last Admin: 09/25/18 09:55 Dose: 400 mg Methadone HCl 40 mg/ Methadone (HCl 20 mg) 60 mg PO DAILY@0600 [facility] Last Admin: 09/25/18 06:44 Dose: 60 mg Pantoprazole Sodium (Protonix -) 40 mg PO DAILY [facility] Last Admin: 09/25/18 09:55 Dose: 40 mg Sodium Chloride ([place] Nasal [place] -) 2 spray NS Q8H PRN PRN Reason: NASAL CONGESTION Last Admin: 09/23/18 22:20 Dose: 2 spray Vital Signs Period Temp Pulse Resp BP Sys/Bansal Pulse Ox Last 24 Hr 97.7 F-98.0 F 62-80 20-20 115-156/63-109 90-93 Constitutional: Yes: No Distress, Calm Eyes: No: Sclera Icterus HENT: No: Nasal Congestion Cardiovascular: Yes: Regular Rate and Rhythm, JVD, S1, S2, Other (PMI non diplaced). No: Gallop, Murmur Respiratory: Yes: CTA Bilaterally. No: Accessory Muscle Use, Rales, Wheezes Gastrointestinal: Yes: Normal Bowel Sounds, Soft. No: Tenderness Musculoskeletal: Yes: Other (No kyphosis) Extremities: No: Cold, Cyanosis Edema: Yes (2+ LE) Integumentary: No: Jaundice Neurological: Yes: Alert, Oriented (x3) Psychiatric: No: Agitated Assessment/Plan mibi 2015 no ischemia, nl EF EKG: sinus, PVC, no ischemic changes echo 09/2018 nl LV function, mild MAC, tr MR, tr AR, RVSP 32 mmHg tele: sinus CXR: extensive bilat infiltrates with R effusion, worse 68M h/o HTN, DM, HLD, PAD s/p femoral stent, prior smoker, R sided lung ca s/p partial resection p/w shortness of breath shortness of breath, PNA, acute diastolic CHF exacerbation: - likely multifactorial - h/o lung ca s/p resection, findings concerning for PNA - abx, nebs per primary, pulm - elevated BNP with congestion on CXR, likely component of HF - nl EF in 2015 - echo nl LV function - received lasix 40 IV daily--was held for elevated BUN/Cr, received IVF--09/23 with mild edema, worsening resp status, weight up 193 to 200, likely component of congestion. received dose of lasix 80 IV x 2, now on lasix 80 mg IV BID, symptoms improving - continue lasix 80 mg IV BID, monitor Cr, daily standing weight, lytes BRET on CKD: -unknown baseline function -likely component of cardiorenal syndrome here -renal following HTN - holding home diuretic, valsartan - bp reasonable at present - cont current meds HLD: - cont statin PAD: - cont statin, aspirin
[2018-09-25] MEDS: ALBUTEROL SO4 2.5/IPRATROPIUM 0.5 INH SOL 3 ML VIAL.NEB. NEB PRN (14:00)
--- NOTE | 2018-09-25 17:23 | PN ---
Progress Note (short form) - Note Progress Note: Renal follow up for BRET Pt seen and examined at the bedside on BIPAP reports continued shortness of breath without much improvement legs remain swollen no chest pain, fever, chills making urine Vital Signs Temperature 97.8 F 09/25/18 14:00 Pulse Rate 65 09/25/18 14:00 Respiratory Rate 20 09/25/18 09:00 Blood Pressure 146/62 09/25/18 14:00 O2 Sat by Pulse Oximetry (%) 94 L 09/25/18 09:00 Intake & Output 09/22/18 09/23/18 09/24/18 09/25/18 23:59 23:59 23:59 23:59 Intake Total 1164 360 500 210 Output Total 200 1275 2300 450 Balance 964 -915 -1800 -240 Weight 89.448 kg 90.718 kg 89.358 kg 90.446 kg NAD RRR, no M/R dec BS, mild rales soft, obese NT/ND + edema in LE CBC, BMP 09/25/18 07:30 09/25/18 07:30 Current Medications Albuterol/Ipratropium (Duoneb -) 1 amp NEB Q6H PRN PRN Reason: SHORTNESS OF BREATH Last Admin: 09/24/18 21:25 Dose: 1 amp Artificial Tears (Artificial Tears) 2 drop OU Q8H PRN PRN Reason: DRY EYES Atorvastatin Calcium (Lipitor -) 20 mg PO HS [facility] Last Admin: 09/24/18 22:11 Dose: 20 mg Calcium Acetate (Phoslo -) 667 mg PO TIDCM [facility] Hydralazine HCl (Apresoline -) 100 mg PO BID [facility] Last Admin: 09/25/18 09:54 Dose: 100 mg Ceftriaxone Sodium 1 gm/ (Dextrose) 50 mls @ 100 mls/hr IVPB DAILY [facility] Last Admin: 09/25/18 09:55 Dose: 100 mls/hr Furosemide 100 mg/ Dextrose 100 mls @ 10 mls/hr IVPB TITR [facility] Insulin Aspart (Novolog Vial Sliding Scale -) 1 vial SQ [facility]; Protocol Last Admin: 09/25/18 12:11 Dose: Not Given Insulin Detemir (Levemir Vial) 10 units SQ HS [facility] Last Admin: 09/24/18 22:11 Dose: 10 unit Labetalol HCl (Normodyne -) 400 mg PO BID [facility] Last Admin: 09/25/18 09:55 Dose: 400 mg Methadone HCl 40 mg/ Methadone (HCl 20 mg) 60 mg PO DAILY@0600 [facility] Last Admin: 09/25/18 06:44 Dose: 60 mg Sodium Chloride ([place] Nasal [place] -) 2 spray NS Q8H PRN PRN Reason: NASAL CONGESTION Last Admin: 09/23/18 22:20 Dose: 2 spray CXR- left perihilar infiltrate, large right effusion with infiltrate ECHO- normal LV/RV function, trace MR 68 year old gentleman with hx of of hypertension, DM on insulin, PVD s/ p Le stents, BPH, Hx of Lung cancer s/p resection who presented with SOB and noted to have BUN/Cr of 79/3.2. #Acute shortness of breath form diastolic HF + PNA #Peripheral edema #Acute on chronic renal insufficiency #Anemia #Hypertension #BPH Renal function w/o improvement, weights unchanged, fluid status unchanged Will change to Lasix gtt at 10mg per hour Discontinue Cardura and amlodipine (can cause peripheral edema as medication side effect) UPCR is 3.2, CHICHI negative, ANCA is negative so unlikely that pt has drug induced lupus Urine Legionella Ag negative CT of the chest consistent with PNA, Continue Ceftriaxone as per primary Renal imgaing showed no obstruction but did show lesion on spleen, would need CT with contrast to evalulate but should wait until renal function is improved Trend daily weights hold LUKE/ARB and potassium sparing diuretics at this time continue labetalol, Hydralazine and lasix and titrate to goal BP < 140/90 if pt has rebound hypertension off Cardura and Amlodpine can consider vasodilator such as clonidine vs. Nitrate if clinical status does not improve with high dose diuretics can consider dialysis/UF for fluid removal Dariusz Iniguez DO
[2018-09-25] MEDS: CALCIUM ACETATE 667 MG CAPSULE (FP) PO SCH (17:35)
[2018-09-25] MEDS ORDERED: INSULIN (NOVOLOG) ASPART 100 UNITS/ML 10ML VIAL ONE (17:47)
[2018-09-25] MEDS: FUROSEMIDE INJECTION 100 MG in DEXTROSE 5%-WATER - 90 ML IVPB SCH (20:45)
[2018-09-25] MEDS: ATORVASTATIN CA 20 MG TABLET (FP) PO SCH (21:40)
[2018-09-25] MEDS: INSULIN (LEVEMIR) 100 UNITS/ML UNITS SQ SCH (21:44)
[2018-09-26] MEDS ORDERED: METHADONE HCL 40 MG DISPERSABLE TABLET ONE (05:39)
[2018-09-26] MEDS ORDERED: METHADONE HCL 10 MG TABLET ONE (05:40)
[2018-09-26] MEDS ORDERED: METHADONE HCL 10 MG TABLET PO ONE (06:27)
[2018-09-26] MEDS: INSULIN SLIDING SCALE (NOVOLOG) 1 VIAL SQ SCH ×4 (06:44→21:57)
[2018-09-26] MEDS ORDERED: METHADONE 40 MG, METHADONE 20 MG PO ONE (06:45)
[2018-09-26 08:04] LABS: BILIRUBIN,TOTAL 0.3 mg/dL (0.2-1); CALCIUM 8.3 mg/dL (8.5-10.1); CREATININE 3.9 mg/dL (0.55-1.3); MAGNESIUM 2.4 mg/dL (1.8-2.4); PHOSPHOROUS 7.5 mg/dL (2.5-4.9); POTASSIUM 3.8 mmol/L (3.5-5.1); TOT PROT 5.7 g/dl (6.4-8.2)
[2018-09-26 08:18] LABS: BASO % 0.2 % (0-2.0); EOS % 0.2 % (0-4.5); HEMATOCRIT 23.9 % (35.4-49); MCH 28.7 pg (25.7-33.7); MCHC 33.4 g/dl (32.0-35.9); MEAN CELL VOLUME 85.9 fl (80-96); MEAN PLT VOLUME 8.2 fl (7.5-11.1); MONO % 4.4 % (3.8-10.2); NEUT % 93.2 % (42.8-82.8); PLATELET COUNT 373 K/MM3 (134-434); RBC 2.78 M/mm3 (4.00-5.60); RDW 14.9 % (11.9-15.9); WHITE BLOOD COUNT 20.8 K/mm3 (4.0-10.0)
[2018-09-26] MEDS: ALBUTEROL SO4 2.5/IPRATROPIUM 0.5 INH SOL 3 ML VIAL.NEB. NEB PRN ×3 (08:20→20:50)
[2018-09-26 08:30] LABS: BLOOD UREA NITROGEN 143.1 mg/dL (7-18)
[2018-09-26] MEDS ORDERED: DEXTROSE 5%-WATER - 50 ML IVPB ONE ×3 (08:57→19:59)
[2018-09-26] MEDS ORDERED: cefTRIAXone SODIUM 1 GM VIAL ONE (08:57)
[2018-09-26] MEDS: hydrALAZINE HCL 50 MG TABLET (FP) PO SCH ×2 (09:24→21:48)
[2018-09-26] MEDS: CALCIUM ACETATE 667 MG CAPSULE (FP) PO SCH ×3 (09:24→18:20)
[2018-09-26] MEDS: LABETALOL HCL 200 MG TABLET (FP) PO SCH ×2 (09:25→21:48)
--- NOTE | 2018-09-26 10:11 | PN ---
Progress Note, Physician History of Present Illness: pulmonary alert,on bipap more comfortable,o2 sat 92% on fio2 55% - Current Medication List Current Medications: Active Medications Albuterol/Ipratropium (Duoneb -) 1 amp NEB Q6H PRN PRN Reason: SHORTNESS OF BREATH Last Admin: 09/25/18 14:00 Dose: 1 amp Artificial Tears (Artificial Tears) 2 drop OU Q8H PRN PRN Reason: DRY EYES Atorvastatin Calcium (Lipitor -) 20 mg PO HS [facility] Last Admin: 09/25/18 21:40 Dose: 20 mg Calcium Acetate (Phoslo -) 667 mg PO TIDCM [facility] Last Admin: 09/26/18 09:24 Dose: 667 mg Hydralazine HCl (Apresoline -) 100 mg PO BID [facility] Last Admin: 09/26/18 09:24 Dose: 100 mg Furosemide 100 mg/ Dextrose 100 mls @ 10 mls/hr IVPB TITR [facility] Last Admin: 09/25/18 20:45 Dose: 10 mg/hr, 10 mls/hr Insulin Aspart (Novolog Vial Sliding Scale -) 1 vial SQ [facility]; Protocol Last Admin: 09/26/18 06:44 Dose: Not Given Insulin Detemir (Levemir Vial) 10 units SQ [facility] Last Admin: 09/25/18 21:44 Dose: 10 unit Labetalol HCl (Normodyne -) 400 mg PO BID [facility] Last Admin: 09/26/18 09:25 Dose: 400 mg Sodium Chloride ([place] Nasal [place] -) 2 spray NS Q8H PRN PRN Reason: NASAL CONGESTION Last Admin: 09/23/18 22:20 Dose: 2 spray - Objective Vital Signs: Vital Signs Temperature 98.4 F 09/26/18 09:53 Pulse Rate 70 09/26/18 09:53 Respiratory Rate 18 09/26/18 09:53 Blood Pressure 153/68 09/26/18 09:53 O2 Sat by Pulse Oximetry (%) 89 L 09/26/18 08:50 Constitutional: Yes: Well Nourished, Calm Eyes: Yes: WNL HENT: Yes: WNL Neck: Yes: WNL Cardiovascular: Yes: Regular Rate and Rhythm, S1, S2 Respiratory: Yes: Rales (bilateral rales 1/3 up) Gastrointestinal: Yes: Normal Bowel Sounds, Soft Extremities: Yes: WNL Edema: Yes Labs: CBC, BMP 09/26/18 07:10 09/26/18 07:10 INR, PTT INR 1.11 (0.83-1.09) H 09/17/18 12:23 Problem List - Problems (1) Vhzkk-hs-ktaexgw kidney injury Code(s): N17.9 - ACUTE KIDNEY FAILURE, UNSPECIFIED; N18.9 - CHRONIC KIDNEY DISEASE, UNSPECIFIED (2) CHF exacerbation Code(s): I50.9 - HEART FAILURE, UNSPECIFIED (3) Chronic renal insufficiency, stage III (moderate) Code(s): N18.3 - CHRONIC KIDNEY DISEASE, STAGE 3 (MODERATE) (4) Diabetes Code(s): E11.9 - TYPE 2 DIABETES MELLITUS WITHOUT COMPLICATIONS (5) History of lung cancer Code(s): Z85.118 - PERSONAL HISTORY OF MALIGNANT NEOPLASM OF BRONCHUS AND LUNG (6) Normocytic anemia Code(s): D64.9 - ANEMIA, UNSPECIFIED (7) Dyspnea Code(s): R06.00 - DYSPNEA, UNSPECIFIED Assessment/Plan IMP DYSPNEA ACUTE HYPOXEMIC RESPIRATORY FAILURE BILATERAL INFILTRATES ACUTE ON CHRONIC CHF PNEUMONIA ACUTE ON CHRONIC KIDNEY INJURY ANEMIA HTN DM H/O LUNG CA S/P RESECTION 1985 PLAN LASIX DRIP O2 ABX F/U CHEST X-RAYS MONITOR LYTES,RENAL FUNCTION MONITOR CBC DAILY WT STRICT I+Os CONSIDER ID EVALUATION DR MARIE Problem List - Problems (1) Pwgpf-ez-eepeoun kidney injury Code(s): N17.9 - ACUTE KIDNEY FAILURE, UNSPECIFIED; N18.9 - CHRONIC KIDNEY DISEASE, UNSPECIFIED (2) CHF exacerbation Code(s): I50.9 - HEART FAILURE, UNSPECIFIED (3) Chronic renal insufficiency, stage III (moderate) Code(s): N18.3 - CHRONIC KIDNEY DISEASE, STAGE 3 (MODERATE) (4) Diabetes Code(s): E11.9 - TYPE 2 DIABETES MELLITUS WITHOUT COMPLICATIONS (5) History of lung cancer Code(s): Z85.118 - PERSONAL HISTORY OF MALIGNANT NEOPLASM OF BRONCHUS AND LUNG (6) Normocytic anemia Code(s): D64.9 - ANEMIA, UNSPECIFIED (7) Dyspnea Code(s): R06.00 - DYSPNEA, UNSPECIFIED
[2018-09-26 11:09] LABS: ANISOCYTOSIS 0; MACROCYTOSIS 0; PLATELET ESTIMATE NORMAL
--- NOTE | 2018-09-26 11:40 | PN ---
Progress Note (short form) - Note Progress Note: events noted SOB was worse this AM per pt Son at bedside no chest pain now on BIPAP and Lasix GTT Vital Signs - 24 hr 09/25/18 09/25/18 09/25/18 14:00 15:00 15:30 Temperature 97.8 F Pulse Rate 65 Respiratory Rate Blood Pressure 146/62 O2 Sat by Pulse 89 L 92 L Oximetry (%) 09/25/18 09/25/18 09/25/18 17:00 19:25 21:00 Temperature 97.8 F Pulse Rate 67 Respiratory 20 22 H Rate Blood Pressure 150/58 L O2 Sat by Pulse 89 L 89 L Oximetry (%) 09/25/18 09/26/18 09/26/18 22:00 01:10 06:00 Temperature 97.9 F 98.4 F 97.9 F Pulse Rate 66 78 66 Respiratory 20 20 20 Rate Blood Pressure 150/70 151/54 L 128/52 L O2 Sat by Pulse Oximetry (%) 09/26/18 09/26/18 08:50 09:53 Temperature 98.4 F Pulse Rate 70 Respiratory 18 Rate Blood Pressure 153/68 O2 Sat by Pulse 89 L Oximetry (%) Current Medications Generic Name Dose Route Start Last Admin Trade Name Freq PRN Reason Stop Dose Admin Albuterol/Ipratropium 1 amp 09/22/18 23:50 09/25/18 14:00 Duoneb - NEB 1 amp Q6H PRN Administration SHORTNESS OF BREATH Artificial Tears 2 drop 09/20/18 16:13 Artificial Tears OU Q8H PRN DRY EYES Atorvastatin Calcium 20 mg 09/17/18 22:00 09/25/18 21:40 Lipitor - PO 20 mg HS [facility] Administration Calcium Acetate 667 mg 09/25/18 17:30 09/26/18 09:24 Phoslo - PO 667 mg TIDCM [facility] Administration Hydralazine HCl 100 mg 09/19/18 22:00 09/26/18 09:24 Apresoline - PO 100 mg BID [facility] Administration Furosemide 100 mg/ Dextrose 100 mls @ 10 mls/hr 09/25/18 20:00 09/25/18 20:45 IVPB 10 mg/hr TITR [facility] 10 mls/hr Administration 10 MG/HR Insulin Aspart 1 vial 09/17/18 16:30 09/26/18 06:44 Novolog Vial Sliding Scale - SQ Not Given A[facility]S [facility] Protocol Insulin Detemir 10 units 09/17/18 22:00 09/25/18 21:44 Levemir Vial SQ 10 unit HS [facility] Administration Labetalol HCl 400 mg 09/19/18 10:40 09/26/18 09:25 Normodyne - PO 400 mg BID [facility] Administration Sodium Chloride 2 spray 09/23/18 15:50 09/23/18 22:20 [place] Nasal [place] - NS 2 spray Q8H PRN Administration NASAL CONGESTION Laboratory Results - last 24 hr 09/25/18 09/25/18 09/25/18 12:10 17:26 21:42 WBC RBC Hgb Hct MCV MCH MCHC RDW Plt Count MPV Absolute Neuts (auto) Neutrophils % Neutrophils % (Manual) Band Neutrophils % Lymphocytes % Lymphocytes % (Manual) Monocytes % Monocytes % (Manual) Eosinophils % Eosinophils % (Manual) Basophils % Basophils % (Manual) Myelocytes % (Man) Promyelocytes % (Man) Blast Cells % (Manual) Nucleated RBC % Metamyelocytes Hypochromia Platelet Estimate Polychromasia Poikilocytosis Anisocytosis Microcytosis Macrocytosis Sodium Potassium Chloride Carbon Dioxide Anion Gap BUN Creatinine Est GFR (CKD-EPI)AfAm Est GFR (CKD-EPI)NonAf POC Glucometer 124 228 305 Random Glucose Calcium Phosphorus Magnesium Total Bilirubin AST ALT Alkaline Phosphatase Total Protein Albumin 09/26/18 09/26/18 09/26/18 05:54 07:10 07:10 WBC 20.8 H RBC 2.78 L Hgb 8.0 L Hct 23.9 L MCV 85.9 MCH 28.7 MCHC 33.4 RDW 14.9 Plt Count 373 MPV 8.2 Absolute Neuts (auto) 19.4 H Neutrophils % 93.2 H Neutrophils % (Manual) 98.0 H Band Neutrophils % 0.0 Lymphocytes % 2.0 L D Lymphocytes % (Manual) 0.0 L Monocytes % 4.4 Monocytes % (Manual) 1 L Eosinophils % 0.2 D Eosinophils % (Manual) 0.0 Basophils % 0.2 Basophils % (Manual) 0.0 Myelocytes % (Man) 0 Promyelocytes % (Man) 0 Blast Cells % (Manual) 0 Nucleated RBC % 0 Metamyelocytes 1 Hypochromia 0 Platelet Estimate Normal Polychromasia 0 Poikilocytosis 0 Anisocytosis 0 Microcytosis 0 Macrocytosis 0 Sodium 136 Potassium 3.8 Chloride 97 L Carbon Dioxide 28 Anion Gap 12 BUN 143.1 H* Creatinine 3.9 H Est GFR (CKD-EPI)AfAm 16.98 Est GFR (CKD-EPI)NonAf 14.65 POC Glucometer 78 Random Glucose 92 Calcium 8.3 L Phosphorus 7.5 H Magnesium 2.4 Total Bilirubin 0.3 AST 28 ALT 23 Alkaline Phosphatase 183 H Total Protein 5.7 L Albumin 2.0 L 09/26/18 11:14 WBC RBC Hgb Hct MCV MCH MCHC RDW Plt Count MPV Absolute Neuts (auto) Neutrophils % Neutrophils % (Manual) Band Neutrophils % Lymphocytes % Lymphocytes % (Manual) Monocytes % Monocytes % (Manual) Eosinophils % Eosinophils % (Manual) Basophils % Basophils % (Manual) Myelocytes % (Man) Promyelocytes % (Man) Blast Cells % (Manual) Nucleated RBC % Metamyelocytes Hypochromia Platelet Estimate Polychromasia Poikilocytosis Anisocytosis Microcytosis Macrocytosis Sodium Potassium Chloride Carbon Dioxide Anion Gap BUN Creatinine Est GFR (CKD-EPI)AfAm Est GFR (CKD-EPI)NonAf POC Glucometer 93 Random Glucose Calcium Phosphorus Magnesium Total Bilirubin AST ALT Alkaline Phosphatase Total Protein Albumin Intake & Output 09/23/18 09/24/18 09/25/18 09/26/18 23:59 23:59 23:59 23:59 Intake Total 360 500 790 310 Output Total 1275 2300 1050 1200 Balance -915 -1800 -260 -890 Weight 200 lb 197 lb 199 lb 6.4 oz 199 lb 12.8 oz S1 s2 RRR Lungs decreased abd- soft, NT JVD+ edema+ PLAN CHF--on lasix GTT leucocytosis-- check blood cultures , ua and urine culture completed ceftriaxone no diarrhea ID eval trial of lasix gtt-- if not helping- then pt may need dialysis ?thoracentesis-- will hold off plavix for now Renal function -- worsening has splenic lesion-- can not do contrast imaging due to decreased renal function weight is same but is urinating well monitor renal function Problem List - Problems (1) BRET (acute kidney injury) Code(s): N17.9 - ACUTE KIDNEY FAILURE, UNSPECIFIED (2) Acute and chronic respiratory failure Code(s): J96.20 - ACUTE AND CHR RESP FAILURE, UNSP W HYPOXIA OR HYPERCAPNIA (3) Adwpa-av-ezubrbp kidney injury Code(s): N17.9 - ACUTE KIDNEY FAILURE, UNSPECIFIED; N18.9 - CHRONIC KIDNEY DISEASE, UNSPECIFIED (4) CHF exacerbation Code(s): I50.9 - HEART FAILURE, UNSPECIFIED (5) Diabetes Code(s): E11.9 - TYPE 2 DIABETES MELLITUS WITHOUT COMPLICATIONS
--- NOTE | 2018-09-26 11:56 | PN ---
Progress Note (short form) - Note Progress Note: s: breathing worse today, on bipap. no chest pain, palps, dizziness. Current Medications Albuterol/Ipratropium (Duoneb -) 1 amp NEB Q6H PRN PRN Reason: SHORTNESS OF BREATH Last Admin: 09/25/18 14:00 Dose: 1 amp Artificial Tears (Artificial Tears) 2 drop OU Q8H PRN PRN Reason: DRY EYES Atorvastatin Calcium (Lipitor -) 20 mg PO HS [facility] Last Admin: 09/25/18 21:40 Dose: 20 mg Calcium Acetate (Phoslo -) 667 mg PO TIDCM [facility] Last Admin: 09/26/18 09:24 Dose: 667 mg Hydralazine HCl (Apresoline -) 100 mg PO BID [facility] Last Admin: 09/26/18 09:24 Dose: 100 mg Furosemide 100 mg/ Dextrose 100 mls @ 10 mls/hr IVPB TITR [facility] Last Admin: 09/25/18 20:45 Dose: 10 mg/hr, 10 mls/hr Insulin Aspart (Novolog Vial Sliding Scale -) 1 vial SQ [facility]; Protocol Last Admin: 09/26/18 06:44 Dose: Not Given Insulin Detemir (Levemir Vial) 10 units SQ [facility] Last Admin: 09/25/18 21:44 Dose: 10 unit Labetalol HCl (Normodyne -) 400 mg PO BID [facility] Last Admin: 09/26/18 09:25 Dose: 400 mg Sodium Chloride ([place] Nasal [place] -) 2 spray NS Q8H PRN PRN Reason: NASAL CONGESTION Last Admin: 09/23/18 22:20 Dose: 2 spray Vital Signs Period Temp Pulse Resp BP Sys/Bansal Pulse Ox Last 24 Hr 97.8 F-98.4 F 65-78 18-22 128-153/52-70 89-92 Constitutional: Yes: No Distress, Calm Eyes: No: Sclera Icterus HENT: No: Nasal Congestion Cardiovascular: Yes: Regular Rate and Rhythm, JVD, S1, S2, Other (PMI non diplaced). No: Gallop, Murmur Respiratory: Yes: CTA Bilaterally. rales bases bilaterally, diffuse exp wheeze Gastrointestinal: Yes: Normal Bowel Sounds, Soft. No: Tenderness Musculoskeletal: Yes: Other (No kyphosis) Extremities: No: Cold, Cyanosis Edema: Yes (2+ LE) Integumentary: No: Jaundice Neurological: Yes: Alert, Oriented (x3) Psychiatric: No: Agitated Assessment/Plan mibi 2016 no ischemia, nl EF EKG: sinus, PVC, no ischemic changes echo 09/2018 nl LV function, mild MAC, tr MR, tr AR, RVSP 32 mmHg tele: sinus CXR: extensive bilat infiltrates with R effusion, worse 68M h/o HTN, DM, HLD, PAD s/p femoral stent, prior smoker, R sided lung ca s/p partial resection p/w shortness of breath shortness of breath, PNA, acute diastolic CHF exacerbation: - likely multifactorial - h/o lung ca s/p resection, findings concerning for PNA - abx, nebs per primary, pulm - elevated BNP with congestion on CXR, likely component of HF - nl EF in 2015 - echo nl LV function - received lasix 40 IV daily--was held for elevated BUN/Cr, received IVF--09/23 with mild edema, worsening resp status, weight up 193 to 200, likely component of congestion. received lasix 80 mg IV BID, now on lasix gtt per renal - weight stable, BUN/Cr rising - d/w renal - cont lasix gtt for now, may need dialysis BRET on CKD: -unknown baseline function -likely component of cardiorenal syndrome here -renal following HTN - holding home diuretic, valsartan - bp reasonable at present - cont current meds HLD: - cont statin PAD: - cont statin, aspirin
--- NOTE | 2018-09-26 13:12 | CON.ID ---
Consult Consult Specialty:: infectious disease Referred by:: dr kwan Reason for Consultation:: leukocytosis - History of Present Illness Chief Complaint: sob, leg edema History of Present Illness: 68 yo man admitted on 09/17 with SOB and lower extremity- treated for CHF and pneumonia (rocephin 09/19-09/25) he has worsening SOB, worsening renal failure, and worsening leukocytosis he is awake on bipap he denies fever, chills no diarrhea or dysuria no chest pain or abdominal pain no travel no sick contacts lives with family in [place] history of right lung resection for lung cancer about 10 years ago - History Source History Provided By: Patient, Medical Record Limitations to Obtaining History: No Limitations - Past Medical History Cardio/Vascular: Yes: HTN, Hyperlipdemia Hepatobiliary: Yes: Hepatitis C Renal/: Yes: UTI Heme/Onc: Yes: Cancer (lung cancer) Endocrine: Yes: Diabetes Mellitus - Past Surgical History Additional Surgical History: lung resection. femoral stent - Alcohol/Substance Use Hx Alcohol Use: No - Smoking History Smoking history: Never smoked - Social History Usual Living Arrangement: With Spouse ADL: Independent Place of : Other ([facility]) History of Recent Travel: No Home Medications - Allergies Allergies/Adverse Reactions: Allergies Allergy/AdvReac Type Severity Reaction Status Date / Time No Known Allergies Allergy Verified 09/17/18 11:30 - Home Medications Home Medications: Ambulatory Orders Amlodipine Besylate/Valsartan [Amlodipine-Valsartan 10-320 mg] 1 each PO DAILY 09/17/18 Aspirin 81 mg PO DAILY 09/17/18 Atorvastatin Ca [Lipitor] 20 mg PO HS 09/17/18 Cholecalciferol (Vitamin D3) [Vitamin D3] 50,000 unit PO WEEKLY 09/17/18 Clopidogrel Bisulfate [Plavix -] 75 mg PO DAILY 09/17/18 Doxazosin Mesylate [Cardura -] 4 mg PO DAILY 09/17/18 Furosemide [Lasix -] 40 mg PO DAILY 09/17/18 Glipizide [Glipizide ER] 10 mg PO DAILY 09/17/18 Hydralazine HCl 100 mg PO DAILY 09/17/18 Labetalol HCl 300 mg PO ASDIR 09/17/18 Nateglinide [Starlix (Nf)] 120 mg PO TID 09/17/18 Potassium Chloride [K-Dur -] 10 meq PO BID 09/17/18 Triamterene/Hydrochlorothiazid [Triamterene-Hctz 37.5-25 mg Cp] 1 each PO DAILY 09/17/18 Family Disease History - Family Disease History Family History: Unable to Obtain Review of Systems - Review of Systems Constitutional: reports: No Symptoms Eyes: reports: No Symptoms HENT: reports: No Symptoms. denies: Difficult Swallowing Neck: denies: Decreased ROM Cardiovascular: denies: Chest Pain Respiratory: reports: SOB Gastrointestinal: denies: Abdominal Pain, Constipation, Diarrhea Genitourinary: denies: Burning, Discharge, Dysuria Physical Exam Vital Signs: Vital Signs Temperature 98.4 F 09/26/18 09:53 Pulse Rate 70 09/26/18 09:53 Respiratory Rate 18 09/26/18 09:53 Blood Pressure 153/68 09/26/18 09:53 O2 Sat by Pulse Oximetry (%) 89 L 09/26/18 08:50 Constitutional: Yes: Well Nourished, Mild Distress, Other (wearing bipap) Eyes: Yes: Conjunctiva Clear HENT: Yes: Atraumatic, Normocephalic Neck: Yes: Supple, Trachea Midline Cardiovascular: Yes: Regular Rate and Rhythm Respiratory: Yes: Diminished (at both bases) Gastrointestinal: Yes: Normal Bowel Sounds, Other (firm, ?bladder distention) ...Rectal Exam: Yes: Deferred Edema: Yes Edema: LUE: 1+, RUE: 1+, LLE: 2+, RLE: 2+ Neurological: Yes: Alert, Oriented Labs: CBC, BMP 09/26/18 07:10 09/26/18 07:10 Microbiology 09/23/18 14:35 Urine For Antigen Detection Legionella Antigen - Final 09/23/18 14:35 Urine For Antigen Detection Streptococcus pneumoniae Antigen (M - Final 09/17/18 17:05 Blood - Peripheral Venous Blood Culture - Final NO GROWTH AFTER 5 DAYS INCUBATION 09/17/18 16:00 Blood - Peripheral Venous Blood Culture - Final NO GROWTH AFTER 5 DAYS INCUBATION 09/20/18 07:00 Urine For Antigen Detection Legionella Antigen - Final 09/20/18 07:00 Urine For Antigen Detection Streptococcus pneumoniae Antigen (M - Final Imaging - Results Chest X-ray: Report Reviewed, Image Reviewed Cat Scan: Report Reviewed Problem List - Problems (1) Leukocytosis Code(s): D72.829 - ELEVATED WHITE BLOOD CELL COUNT, UNSPECIFIED (2) Pneumonia Code(s): J18.9 - PNEUMONIA, UNSPECIFIED ORGANISM (3) Acute and chronic respiratory failure Code(s): J96.20 - ACUTE AND CHR RESP FAILURE, UNSP W HYPOXIA OR HYPERCAPNIA (4) [id number] kidney injury Code(s): N17.9 - ACUTE KIDNEY FAILURE, UNSPECIFIED; N18.9 - CHRONIC KIDNEY DISEASE, UNSPECIFIED (5) Diabetes Code(s): E11.9 - TYPE 2 DIABETES MELLITUS WITHOUT COMPLICATIONS (6) History of lung cancer Code(s): Z85.118 - PERSONAL HISTORY OF MALIGNANT NEOPLASM OF BRONCHUS AND LUNG Assessment/Plan doing poorly with worsening renal function and worsening SOB/hypoxia cannot r/o pneumonia given rising WBC no signs phlebitis, no diarrhea would suggest bladder scan ?palpable bladder-spoke with RN repeat blood cultures sent escalate antibioitcs for HCAP zosyn, vancomycin one dose not sure he can lay flat for the chest CT overall prognosis is guarded d/w pulmonary
[2018-09-26] MEDS ORDERED: VANCOMYCIN 1 GRAM (PRE-DOCKED) 1,000 MG/250 ML BAG IVPB ONE (13:33)
[2018-09-26 14:37] LABS: ARTERIAL BLD GAS O2 SATURATION 79.1 % (95-98); ARTERIAL BLOOD GAS BASE EXCESS 0.3 meq/l (-2-2); ARTERIAL BLOOD GAS PCO2 40.6 mmHg (35-45); ARTERIAL BLOOD GAS PO2 49.5 mmHg (80-105)
[2018-09-26 14:41] LABS: ALLENS TEST POSITIVE
[2018-09-26] MEDS ORDERED: PIPERACILLIN/TAZOBACTAM 2.25 GM VIAL IVPB ONE ×2 (15:44→19:59)
[2018-09-26] MEDS: methylPREDNISolone NA SUCC 40 MG/1 ML VIAL IVPUSH SCH ×2 (15:49→21:48)
[2018-09-26] MEDS: PIPERACILLIN/TAZOB 2.25 GM 2.25 GM in DEXTROSE 5%-WATER - 50 ML IVPB SCH ×2 (15:52→20:00)
[2018-09-26 16:30] LABS: EPI CELLS 5.6 /HPF (0-5/HPF); HYALINE CASTS 99 /lpf (0-8); URINE APPEARANCE CLOUDY; URINE BACTERIA 0.5 /hpf (NEGATIVE); URINE BILIRUBIN NEGATIVE (NEGATIVE); URINE COLOR YELLOW; URINE GLUCOSE (UA) NEGATIVE (NEGATIVE); URINE KETONE NEGATIVE (NEGATIVE); URINE LEUK ESTERASE NEGATIVE (NEGATIVE); URINE NITRITE NEGATIVE (NEGATIVE); URINE PROTEIN 2+ (NEGATIVE); URINE UROBILINOGEN 0.2 mg/dL (0.2-1.0); URINE WBC 2 /hpf (0-5)
--- NOTE | 2018-09-26 17:13 | CONSULT ---
Consultation: REQUESTING PROVIDER: Dr. Moser CONSULT REQUEST: We have been asked to medically evaluate this patient for hypoxic respiratory failure HISTORY OF PRESENT ILLNESS: 68 year old male with a past medical history of hypertension, insulin dependent diabetes, hyperlipidemia, NPH, UTI and R sided lung CA s/p resection many years ago (benign according to daughter) was brought to the hospital for shortness of breath. Reportedly he has been changing his dose of lasix per PCP and has not taken his lasix couple of days prior to admission. He was admitted for the treatment of CHF exacerbation. Patient was noted to have an BRET on CKD and started on a lasix drip by nephrology. His pulmonary status was not improving and he was found to have patchy airway disease on CT chest suspect for pneumonia. He was started on antibiotics and trialed on bipap. ICU is consulted for further respiratory monitoring and trial of high flow. Currently, patient is in no acute distress and denies shortness of breath, chest pain, fevers, nausea, vomiting, diarrhea. REVIEW OF SYSTEMS: CONSTITUTIONAL: Absent: fever, chills, diaphoresis, generalized weakness, malaise, loss of appetite, weight change HEENT: Absent: rhinorrhea, nasal congestion, throat pain, throat swelling, difficulty swallowing, mouth swelling, ear pain, eye pain, visual changes CARDIOVASCULAR: Absent: chest pain, syncope, palpitations, irregular heart rate, lightheadedness , peripheral edema RESPIRATORY: Absent: cough, shortness of breath, dyspnea with exertion, orthopnea, wheezing, stridor, hemoptysis GASTROINTESTINAL: Absent: abdominal pain, abdominal distension, nausea, vomiting, diarrhea, constipation, melena, hematochezia GENITOURINARY: Absent: dysuria, frequency, urgency, hesitancy, hematuria, flank pain, genital pain MUSCULOSKELETAL: Absent: myalgia, arthralgia, joint swelling, back pain, neck pain SKIN: Absent: rash, itching, pallor HEMATOLOGIC/IMMUNOLOGIC: Absent: easy bleeding, easy bruising, lymphadenopathy, frequent infections ENDOCRINE: Absent: unexplained weight gain, unexplained weight loss, heat intolerance, cold intolerance NEUROLOGIC: Absent: headache, focal weakness or paresthesias, dizziness, unsteady gait, seizure, mental status changes, bladder or bowel incontinence PSYCHIATRIC: Absent: anxiety, depression, suicidal or homicidal ideation, hallucinations. PHYSICAL EXAMINATION Vital Signs - 24 hr 09/25/18 09/25/18 09/25/18 19:25 21:00 22:00 Temperature 97.9 F Pulse Rate 66 Respiratory 22 H 20 Rate Blood Pressure 150/70 O2 Sat by Pulse 89 L 89 L Oximetry (%) 09/26/18 09/26/18 09/26/18 01:10 06:00 08:50 Temperature 98.4 F 97.9 F Pulse Rate 78 66 Respiratory 20 20 Rate Blood Pressure 151/54 L 128/52 L O2 Sat by Pulse 89 L Oximetry (%) 09/26/18 09/26/18 09/26/18 09:00 09:53 12:00 Temperature 98.4 F Pulse Rate 70 Respiratory 18 18 Rate Blood Pressure 153/68 O2 Sat by Pulse 88 L 90 L Oximetry (%) 09/26/18 09/26/18 14:00 15:00 Temperature 97.9 F Pulse Rate 67 Respiratory 20 Rate Blood Pressure 132/54 L O2 Sat by Pulse 90 L Oximetry (%) GENERAL: A&Ox3, no acute distress EYES: PERRLA, EOMI ENT: Moist mucus membranes NECK: No JVD LUNGS: diffuse rhales noted bilaterally HEART: RRR, no murmurs ABDOMEN: Soft, nontender, BS present MUSCULOSKELETAL: No CVA Tenderness EXTREMITIES: 2+ pulses, 2+ pitting edema noted NEUROLOGICAL: Cranial nerves II-XII intact. No focal deficits GENITOURINARY: alcantara in place draining ~100cc clear light-yellow urine Laboratory Results - last 24 hr 09/25/18 09/25/18 09/26/18 17:26 21:42 05:54 WBC RBC Hgb Hct MCV MCH MCHC RDW Plt Count MPV Absolute Neuts (auto) Neutrophils % Neutrophils % (Manual) Band Neutrophils % Lymphocytes % Lymphocytes % (Manual) Monocytes % Monocytes % (Manual) Eosinophils % Eosinophils % (Manual) Basophils % Basophils % (Manual) Myelocytes % (Man) Promyelocytes % (Man) Blast Cells % (Manual) Nucleated RBC % Metamyelocytes Hypochromia Platelet Estimate Polychromasia Poikilocytosis Anisocytosis Microcytosis Macrocytosis Anticoagulation Therapy Puncture Site Patient Temperature ABG pH ABG pCO2 at Pt Temp ABG pO2 at Pt Temp ABG HCO3 ABG O2 Sat (Measured) ABG O2 Content ABG Base Excess Jm Test O2 Delivery Device Oxygen Flow Rate Vent Mode Vent Rate Mechanical Rate PEEP Pressure Support Vent Sodium Potassium Chloride Carbon Dioxide Anion Gap BUN Creatinine Est GFR (CKD-EPI)AfAm Est GFR (CKD-EPI)NonAf POC Glucometer 228 305 78 Random Glucose Calcium Phosphorus Magnesium Total Bilirubin AST ALT Alkaline Phosphatase Total Protein Albumin Urine Color Urine Appearance Urine pH Ur Specific White Urine Protein Urine Glucose (UA) Urine Ketones Urine Blood Urine Nitrite Urine Bilirubin Urine Urobilinogen Ur Leukocyte Esterase Urine WBC (Auto) Urine Casts (Auto) U Epithel Cells (Auto) Urine Bacteria (Auto) Ur Random Creatinine Ur Random Urea Nitrogn 09/26/18 09/26/18 09/26/18 07:10 07:10 11:14 WBC 20.8 H RBC 2.78 L Hgb 8.0 L Hct 23.9 L MCV 85.9 MCH 28.7 MCHC 33.4 RDW 14.9 Plt Count 373 MPV 8.2 Absolute Neuts (auto) 19.4 H Neutrophils % 93.2 H Neutrophils % (Manual) 98.0 H Band Neutrophils % 0.0 Lymphocytes % 2.0 L D Lymphocytes % (Manual) 0.0 L Monocytes % 4.4 Monocytes % (Manual) 1 L Eosinophils % 0.2 D Eosinophils % (Manual) 0.0 Basophils % 0.2 Basophils % (Manual) 0.0 Myelocytes % (Man) 0 Promyelocytes % (Man) 0 Blast Cells % (Manual) 0 Nucleated RBC % 0 Metamyelocytes 1 Hypochromia 0 Platelet Estimate Normal Polychromasia 0 Poikilocytosis 0 Anisocytosis 0 Microcytosis 0 Macrocytosis 0 Anticoagulation Therapy Puncture Site Patient Temperature ABG pH ABG pCO2 at Pt Temp ABG pO2 at Pt Temp ABG HCO3 ABG O2 Sat (Measured) ABG O2 Content ABG Base Excess Jm Test O2 Delivery Device Oxygen Flow Rate Vent Mode Vent Rate Mechanical Rate PEEP Pressure Support Vent Sodium 136 Potassium 3.8 Chloride 97 L Carbon Dioxide 28 Anion Gap 12 BUN 143.1 H* Creatinine 3.9 H Est GFR (CKD-EPI)AfAm 16.98 Est GFR (CKD-EPI)NonAf 14.65 POC Glucometer 93 Random Glucose 92 Calcium 8.3 L Phosphorus 7.5 H Magnesium 2.4 Total Bilirubin 0.3 AST 28 ALT 23 Alkaline Phosphatase 183 H Total Protein 5.7 L Albumin 2.0 L Urine Color Urine Appearance Urine pH Ur Specific White Urine Protein Urine Glucose (UA) Urine Ketones Urine Blood Urine Nitrite Urine Bilirubin Urine Urobilinogen Ur Leukocyte Esterase Urine WBC (Auto) Urine Casts (Auto) U Epithel Cells (Auto) Urine Bacteria (Auto) Ur Random Creatinine Ur Random Urea Nitrogn 09/26/18 09/26/18 09/26/18 12:43 14:28 15:15 WBC RBC Hgb Hct MCV MCH MCHC RDW Plt Count MPV Absolute Neuts (auto) Neutrophils % Neutrophils % (Manual) Band Neutrophils % Lymphocytes % Lymphocytes % (Manual) Monocytes % Monocytes % (Manual) Eosinophils % Eosinophils % (Manual) Basophils % Basophils % (Manual) Myelocytes % (Man) Promyelocytes % (Man) Blast Cells % (Manual) Nucleated RBC % Metamyelocytes Hypochromia Platelet Estimate Polychromasia Poikilocytosis Anisocytosis Microcytosis Macrocytosis Anticoagulation Therapy Cancelled No Result Required. Puncture Site Cancelled Right radial Patient Temperature Cancelled ABG pH Cancelled 7.40 ABG pCO2 at Pt Temp Cancelled 40.6 ABG pO2 at Pt Temp Cancelled 49.5 L ABG HCO3 Cancelled 24.5 ABG O2 Sat (Measured) Cancelled 79.1 L ABG O2 Content Cancelled 6.9 L* ABG Base Excess Cancelled 0.3 Jm Test Cancelled Positive O2 Delivery Device Cancelled No Result Required. Oxygen Flow Rate Cancelled Yes Vent Mode Cancelled No Result Required. Vent Rate Cancelled No Result Required. Mechanical Rate Cancelled No Result Required. PEEP Cancelled Pressure Support Vent Cancelled No Result Required. Sodium Potassium Chloride Carbon Dioxide Anion Gap BUN Creatinine Est GFR (CKD-EPI)AfAm Est GFR (CKD-EPI)NonAf POC Glucometer Random Glucose Calcium Phosphorus Magnesium Total Bilirubin AST ALT Alkaline Phosphatase Total Protein Albumin Urine Color Yellow Urine Appearance Cloudy Urine pH 5.0 Ur Specific White 1.011 Urine Protein 2+ H Urine Glucose (UA) Negative Urine Ketones Negative Urine Blood Negative Urine Nitrite Negative Urine Bilirubin Negative Urine Urobilinogen 0.2 Ur Leukocyte Esterase Negative Urine WBC (Auto) 2 Urine Casts (Auto) 99 U Epithel Cells (Auto) 5.6 Urine Bacteria (Auto) 0.5 Ur Random Creatinine Ur Random Urea Nitrogn 09/26/18 09/26/18 15:15 17:06 WBC RBC Hgb Hct MCV MCH MCHC RDW Plt Count MPV Absolute Neuts (auto) Neutrophils % Neutrophils % (Manual) Band Neutrophils % Lymphocytes % Lymphocytes % (Manual) Monocytes % Monocytes % (Manual) Eosinophils % Eosinophils % (Manual) Basophils % Basophils % (Manual) Myelocytes % (Man) Promyelocytes % (Man) Blast Cells % (Manual) Nucleated RBC % Metamyelocytes Hypochromia Platelet Estimate Polychromasia Poikilocytosis Anisocytosis Microcytosis Macrocytosis Anticoagulation Therapy Puncture Site Patient Temperature ABG pH ABG pCO2 at Pt Temp ABG pO2 at Pt Temp ABG HCO3 ABG O2 Sat (Measured) ABG O2 Content ABG Base Excess Jm Test O2 Delivery Device Oxygen Flow Rate Vent Mode Vent Rate Mechanical Rate PEEP Pressure Support Vent Sodium Potassium Chloride Carbon Dioxide Anion Gap BUN Creatinine Est GFR (CKD-EPI)AfAm Est GFR (CKD-EPI)NonAf POC Glucometer 192 Random Glucose Calcium Phosphorus Magnesium Total Bilirubin AST ALT Alkaline Phosphatase Total Protein Albumin Urine Color Urine Appearance Urine pH Ur Specific White Urine Protein Urine Glucose (UA) Urine Ketones Urine Blood Urine Nitrite Urine Bilirubin Urine Urobilinogen Ur Leukocyte Esterase Urine WBC (Auto) Urine Casts (Auto) U Epithel Cells (Auto) Urine Bacteria (Auto) Ur Random Creatinine 43.0 Ur Random Urea Nitrogn 520 Active Medications Generic Name Dose Route Start Last Admin Trade Name Freq PRN Reason Stop Dose Admin Albuterol/Ipratropium 1 amp 09/22/18 23:50 09/26/18 15:32 Duoneb - NEB 1 amp Q6H PRN Administration SHORTNESS OF BREATH Artificial Tears 2 drop 09/20/18 16:13 Artificial Tears OU Q8H PRN DRY EYES Atorvastatin Calcium 20 mg 09/17/18 22:00 09/25/18 21:40 Lipitor - PO 20 mg HS GREGORY Administration Calcium Acetate 667 mg 09/25/18 17:30 09/26/18 12:44 Phoslo - PO Not Given TIDCM GREGORY Hydralazine HCl 100 mg 09/19/18 22:00 09/26/18 09:24 Apresoline - PO 100 mg BID GREGORY Administration Furosemide 100 mg/ Dextrose 100 mls @ 10 mls/hr 09/25/18 20:00 09/25/18 20:45 IVPB 10 mg/hr TITR GREGORY 10 mls/hr Administration 10 MG/HR Piperacillin Sod/Tazobactam 50 mls @ 100 mls/hr 09/26/18 13:45 09/26/18 15:52 Sod 2.25 gm/ Dextrose IVPB 100 mls/hr Q8H-IV GREGORY Administration Protocol Insulin Aspart 1 vial 09/17/18 16:30 09/26/18 12:44 Novolog Vial Sliding Scale - SQ Not Given ACHS GREGORY Protocol Insulin Detemir 10 units 09/17/18 22:00 09/25/18 21:44 Levemir Vial SQ 10 unit HS GREGORY Administration Labetalol HCl 400 mg 09/19/18 10:40 09/26/18 09:25 Normodyne - PO 400 mg BID GREGORY Administration Methylprednisolone Sodium Succinate 40 mg 09/26/18 15:00 09/26/18 15:49 Solu-Medrol - IVPUSH 40 mg Q6H-IV GREGORY Administration Sodium Chloride 2 spray 09/23/18 15:50 09/23/18 22:20 [place] - NS 2 spray Q8H PRN Administration NASAL CONGESTION ASSESSMENT/PLAN: 68 year old male with a past medical history of hypertension, insulin dependent diabetes, hyperlipidemia, NPH, UTI and R sided lung CA s/p resection many years ago (benign according to daughter) was brought to the hospital for shortness of breath and admitted for treatment of acute hypoxic respiratory failure 2/2 CHF exacerbation and pneumonia Cardiovascular -patient is being treated for diastolic CHF exacerbation -monitor daily weights/I's/O's -on lasix ggt with moderate urine output -does not appear that this is helping resolve patient's overloaded status, may need dialysis -echo EF 65, RV pressure 32, no significant abnormalities -continue antihypertensives as prescribed -cardiology following Pulmonary -patient was saturating around 88-90% while on bipap -will bring to ICU and monitor on high flow, on 60lpm -treating for bilateral pneumonia -solumedrol 40q6h on zosyn -ID consultation -CXR in AM -nish Renal -patient has azotemia and worsening of his chronic kidney disease -per renal, will likely need dialysis if no change in status -repeat BMP in AM -renal following FEN -no standing fluids -replete lytes as necessary in AM Disposition -monitor in ICU Visit type - Emergency Visit Emergency Visit: No - New Patient This patient is new to me today: No - Critical Care Critical Care patient: Yes Total Critical Care Time (in minutes): 36 Critical Care Statement: The care of this patient involved high complexity decision making to prevent further life threatening deterioration of the patient 's condition and/or to evaluate & treat vital organ system(s) failure or risk of failure.
[2018-09-26 17:29] LABS: URINE RBC 4.5 /hpf (0-4)
--- NOTE | 2018-09-26 17:36 | PN ---
Progress Note (short form) - Note Progress Note: Renal follow up for BRET Pt seen and examined at the bedside on BIPAP, laying semi-flat has SOB with any exertion making urine but clinically he is unchanged. Vital Signs Temperature 97.9 F 09/26/18 14:00 Pulse Rate 67 09/26/18 14:00 Respiratory Rate 20 09/26/18 14:00 Blood Pressure 132/54 L 09/26/18 14:00 O2 Sat by Pulse Oximetry (%) 90 L 09/26/18 15:00 Intake & Output 09/23/18 09/24/18 09/25/18 09/26/18 23:59 23:59 23:59 23:59 Intake Total 360 500 790 310 Output Total 1275 2300 1050 2100 Balance -649 -1017 -277 -8500 Weight 90.718 kg 89.358 kg 90.446 kg 90.628 kg NAD RRR, no M/R dec BS, mild rales soft, obese NT/ND + edema in LE CBC, BMP 09/26/18 07:10 09/26/18 07:10 Current Medications Albuterol/Ipratropium (Duoneb -) 1 amp NEB Q6H PRN PRN Reason: SHORTNESS OF BREATH Last Admin: 09/26/18 15:32 Dose: 1 amp Artificial Tears (Artificial Tears) 2 drop OU Q8H PRN PRN Reason: DRY EYES Atorvastatin Calcium (Lipitor -) 20 mg PO HS GREGORY Last Admin: 09/25/18 21:40 Dose: 20 mg Calcium Acetate (Phoslo -) 667 mg PO TIDCM GREGORY Last Admin: 09/26/18 12:44 Dose: Not Given Hydralazine HCl (Apresoline -) 100 mg PO BID GREGORY Last Admin: 09/26/18 09:24 Dose: 100 mg Furosemide 100 mg/ Dextrose 100 mls @ 10 mls/hr IVPB TITR GREGORY Last Admin: 09/25/18 20:45 Dose: 10 mg/hr, 10 mls/hr Piperacillin Sod/Tazobactam (Sod 2.25 gm/ Dextrose) 50 mls @ 100 mls/hr IVPB Q8H-IV GREGORY; Protocol Last Admin: 09/26/18 15:52 Dose: 100 mls/hr Insulin Aspart (Novolog Vial Sliding Scale -) 1 vial SQ ACHS GREGORY; Protocol Last Admin: 09/26/18 12:44 Dose: Not Given Insulin Detemir (Levemir Vial) 10 units SQ HS [facility] Last Admin: 09/25/18 21:44 Dose: 10 unit Labetalol HCl (Normodyne -) 400 mg PO BID [facility] Last Admin: 09/26/18 09:25 Dose: 400 mg Methylprednisolone Sodium Succinate (Solu-Medrol -) 40 mg IVPUSH Q6H-IV GREGORY Last Admin: 09/26/18 15:49 Dose: 40 mg Sodium Chloride ([place] [facility] [place] -) 2 spray NS Q8H PRN PRN Reason: NASAL CONGESTION Last Admin: 09/23/18 22:20 Dose: 2 spray CXR- left perihilar infiltrate, large right effusion with infiltrate ECHO- normal LV/RV function, trace MR 68 year old gentleman with hx of of hypertension, DM on insulin, PVD s/ p Le stents, BPH, Hx of Lung cancer s/p resection who presented with SOB and noted to have BUN/Cr of 79/3.2. #Acute shortness of breath form diastolic HF + PNA #Peripheral edema #Acute on chronic renal insufficiency #Anemia #Hypertension #BPH Clinically unchanged. Remains volume overloaded despite IV lasix gtt. Is non- oliguric if no improvement in 24 hours, will likely require Renal replacement therapy. UPCR is 3.2, CHICHI negative, ANCA is negative so unlikely that pt has drug induced lupus Urine Legionella Ag negative CT of the chest consistent with PNA, Continue Ceftriaxone as per primary Renal imgaing showed no obstruction but did show lesion on spleen, would need CT with contrast to evalulate but should wait until renal function is improved Trend daily weights continue labetalol, Hydralazine and lasix and titrate to goal BP < 140/90, Discontinue Cardura and amlodipine (can cause peripheral edema as medication side effect) BP is reasonably well controlled off Cardura and amlodipine Dariusz Iniguez DO
[2018-09-26] MEDS: ATORVASTATIN CA 20 MG TABLET (FP) PO SCH (21:49)
[2018-09-26] MEDS: INSULIN (LEVEMIR) 100 UNITS/ML UNITS SQ SCH (21:57)
[2018-09-26] MEDS: FUROSEMIDE INJECTION 100 MG in DEXTROSE 5%-WATER - 90 ML IVPB SCH (23:00)
[2018-09-27] MEDS ORDERED: DEXTROSE 5%-WATER - 50 ML IVPB ONE ×3 (02:39→18:17)
[2018-09-27] MEDS ORDERED: PIPERACILLIN/TAZOBACTAM 2.25 GM VIAL IVPB ONE ×3 (02:39→18:17)
[2018-09-27] MEDS: PIPERACILLIN/TAZOB 2.25 GM 2.25 GM in DEXTROSE 5%-WATER - 50 ML IVPB SCH ×3 (03:21→18:20)
[2018-09-27] MEDS: methylPREDNISolone NA SUCC 40 MG/1 ML VIAL IVPUSH SCH ×4 (03:21→21:20)
[2018-09-27 06:04] LABS: BASO % 0.3 % (0-2.0); EOS % 1.3 % (0-4.5); HEMATOCRIT 22.9 % (35.4-49); HEMOGLOBIN 7.7 GM/dL (11.7-16.9); LYMPH % 1.2 % (8-40); MCH 28.7 pg (25.7-33.7); MCHC 33.5 g/dl (32.0-35.9); MEAN CELL VOLUME 85.6 fl (80-96); MEAN PLT VOLUME 8.6 fl (7.5-11.1); MONO % 1.5 % (3.8-10.2); NEUT % 95.7 % (42.8-82.8); PLATELET COUNT 348 K/MM3 (134-434); RBC 2.67 M/mm3 (4.00-5.60); RDW 14.5 % (11.9-15.9); WHITE BLOOD COUNT 20.3 K/mm3 (4.0-10.0)
[2018-09-27] MEDS ORDERED: METHADONE HCL 40 MG DISPERSABLE TABLET PO SCH (06:15)
[2018-09-27] MEDS ORDERED: METHADONE HCL 10 MG TABLET ONE (06:23)
[2018-09-27] MEDS ORDERED: METHADONE HCL 40 MG DISPERSABLE TABLET ONE (06:24)
[2018-09-27 06:33] LABS: CALCIUM 8.2 mg/dL (8.5-10.1); CREATININE 4.2 mg/dL (0.55-1.3); POTASSIUM 3.6 mmol/L (3.5-5.1)
[2018-09-27 06:38] LABS: BLOOD UREA NITROGEN 155.6 mg/dL (7-18)
[2018-09-27] MEDS: METHADONE 40 MG, METHADONE 20 MG PO SCH (06:46)
[2018-09-27] MEDS: INSULIN SLIDING SCALE (NOVOLOG) 1 VIAL SQ SCH ×5 (06:47→21:40)
[2018-09-27] MEDS: CALCIUM ACETATE 667 MG CAPSULE (FP) PO SCH ×3 (08:49→18:20)
[2018-09-27] MEDS: hydrALAZINE HCL 50 MG TABLET (FP) PO SCH (09:14)
[2018-09-27] MEDS: LABETALOL HCL 200 MG TABLET (FP) PO SCH ×2 (09:15→21:20)
[2018-09-27 09:53] LABS: ANISOCYTOSIS 1+; MACROCYTOSIS 0; PLATELET ESTIMATE NORMAL
[2018-09-27] MEDS ORDERED: FUROSEMIDE 40 MG/4 ML INJECTABLE VIAL ONE (10:07)
[2018-09-27] MEDS: FUROSEMIDE INJECTION 100 MG in DEXTROSE 5%-WATER - 90 ML IVPB SCH ×2 (10:16→21:20)
--- NOTE | 2018-09-27 10:54 | PN ---
Progress Note (short form) - Note Progress Note: events noted pt in ICU for high flow O2 He will be starting on Dialysis today awake and alert Vital Signs - 24 hr 09/26/18 09/26/18 09/26/18 14:00 15:00 17:00 Temperature 97.9 F 97.9 F Pulse Rate 67 68 Respiratory 20 20 Rate Blood Pressure 132/54 L 136/59 L O2 Sat by Pulse 90 L Oximetry (%) 09/26/18 09/26/18 09/26/18 17:58 18:20 18:25 Temperature 97.6 F Pulse Rate 68 79 Respiratory 19 Rate Blood Pressure 152/67 O2 Sat by Pulse 93 L 95 Oximetry (%) 09/26/18 09/26/18 09/26/18 18:41 19:28 20:26 Temperature Pulse Rate 71 Respiratory 17 21 H Rate Blood Pressure 159/50 L O2 Sat by Pulse 94 L 94 L Oximetry (%) 09/26/18 09/26/18 09/27/18 21:00 22:00 00:00 Temperature 98.3 F Pulse Rate 73 68 Respiratory 17 16 16 Rate Blood Pressure 161/64 143/60 O2 Sat by Pulse 92 L Oximetry (%) 09/27/18 09/27/18 09/27/18 02:00 04:00 06:00 Temperature Pulse Rate 69 70 69 Respiratory 14 20 20 Rate Blood Pressure 140/60 137/60 142/50 L O2 Sat by Pulse Oximetry (%) 09/27/18 09/27/18 09/27/18 07:41 07:44 08:12 Temperature Pulse Rate 65 66 Respiratory 20 20 Rate Blood Pressure 142/50 L O2 Sat by Pulse 95 Oximetry (%) 09/27/18 09/27/18 10:00 12:00 Temperature 97.3 F L Pulse Rate 64 65 Respiratory 19 18 Rate Blood Pressure 129/58 L 158/61 O2 Sat by Pulse Oximetry (%) Current Medications Generic Name Dose Route Start Last Admin Trade Name Freq PRN Reason Stop Dose Admin Albuterol/Ipratropium 1 amp 09/22/18 23:50 09/27/18 11:09 Duoneb - NEB 1 amp Q6H PRN Administration SHORTNESS OF BREATH Artificial Tears 2 drop 09/20/18 16:13 Artificial Tears OU Q8H PRN DRY EYES Atorvastatin Calcium 20 mg 09/17/18 22:00 09/26/18 21:49 Lipitor - PO 20 mg HS GREGORY Administration Calcium Acetate 667 mg 09/25/18 17:30 09/27/18 12:21 Phoslo - PO 667 mg TIDCM GREGORY Administration Hydralazine HCl 100 mg 09/19/18 22:00 09/27/18 09:14 Apresoline - PO 100 mg BID GREGORY Administration Furosemide 100 mg/ Dextrose 100 mls @ 10 mls/hr 09/25/18 20:00 09/27/18 10:16 IVPB 10 mg/hr TITR GREGORY 10 mls/hr Administration 10 MG/HR Piperacillin Sod/Tazobactam 50 mls @ 100 mls/hr 09/26/18 13:45 09/27/18 09:32 Sod 2.25 gm/ Dextrose IVPB 100 mls/hr Q8H-IV GREGORY Administration Protocol Sodium Chloride 250 mls @ 3,000 mls/hr 09/27/18 12:30 Normal Saline - IV 09/28/18 12:29 PRN PRN Hypotension during Dialysis Insulin Aspart 1 vial 09/17/18 16:30 09/27/18 12:20 Novolog Vial Sliding Scale - SQ 5 units ACHS GREGORY Administration Protocol Insulin Detemir 10 units 09/17/18 22:00 09/26/18 21:57 Levemir Vial SQ 10 unit HS GREGORY Administration Labetalol HCl 400 mg 09/19/18 10:40 09/27/18 09:15 Normodyne - PO 400 mg BID GREGORY Administration Methadone HCl 40 mg/ Methadone 60 mg 09/27/18 06:30 09/27/18 06:46 HCl 20 mg PO 60 mg DAILY@0600 GREGORY Administration Methylprednisolone Sodium Succinate 40 mg 09/26/18 15:00 09/27/18 09:14 Solu-Medrol - IVPUSH 40 mg Q6H-IV GREGORY Administration Sodium Chloride 2 spray 09/23/18 15:50 09/23/18 22:20 [place] Nasal [place] - NS 2 spray Q8H PRN Administration NASAL CONGESTION Laboratory Results - last 24 hr 09/26/18 09/26/18 09/26/18 14:28 15:15 15:15 WBC RBC Hgb Hct MCV MCH MCHC RDW Plt Count MPV Absolute Neuts (auto) Neutrophils % Neutrophils % (Manual) Band Neutrophils % Lymphocytes % Lymphocytes % (Manual) Monocytes % Monocytes % (Manual) Eosinophils % Eosinophils % (Manual) Basophils % Basophils % (Manual) Myelocytes % (Man) Promyelocytes % (Man) Blast Cells % (Manual) Nucleated RBC % Metamyelocytes Hypochromia Platelet Estimate Polychromasia Poikilocytosis Anisocytosis Microcytosis Macrocytosis Anticoagulation Therapy No Result Required. Puncture Site Right radial ABG pH 7.40 ABG pCO2 at Pt Temp 40.6 ABG pO2 at Pt Temp 49.5 L ABG HCO3 24.5 ABG O2 Sat (Measured) 79.1 L ABG O2 Content 6.9 L* ABG Base Excess 0.3 Jm Test Positive O2 Delivery Device No Result Required. Oxygen Flow Rate Yes Vent Mode No Result Required. Vent Rate No Result Required. Mechanical Rate No Result Required. Pressure Support Vent No Result Required. Sodium Potassium Chloride Carbon Dioxide Anion Gap BUN Creatinine Est GFR (CKD-EPI)AfAm Est GFR (CKD-EPI)NonAf POC Glucometer Random Glucose Calcium Urine Color Yellow Urine Appearance Cloudy Urine pH 5.0 Ur Specific [place] 1.011 Urine Protein 2+ H Urine Glucose (UA) Negative Urine Ketones Negative Urine Blood Negative Urine Nitrite Negative Urine Bilirubin Negative Urine Urobilinogen 0.2 Ur Leukocyte Esterase Negative Urine WBC (Auto) 2 Urine RBC (Auto) 4.5 Urine Casts (Auto) 99 U Pathogenic Cast Auto None seen U Epithel Cells (Auto) 5.6 U Sm Round Cell (Auto) None seen Urine Bacteria (Auto) 0.5 Ur Random Creatinine 43.0 Ur Random Urea Nitrogn 520 Random Vancomycin 09/26/18 09/26/18 09/27/18 17:06 21:52 05:30 WBC RBC Hgb Hct MCV MCH MCHC RDW Plt Count MPV Absolute Neuts (auto) Neutrophils % Neutrophils % (Manual) Band Neutrophils % Lymphocytes % Lymphocytes % (Manual) Monocytes % Monocytes % (Manual) Eosinophils % Eosinophils % (Manual) Basophils % Basophils % (Manual) Myelocytes % (Man) Promyelocytes % (Man) Blast Cells % (Manual) Nucleated RBC % Metamyelocytes Hypochromia Platelet Estimate Polychromasia Poikilocytosis Anisocytosis Microcytosis Macrocytosis Anticoagulation Therapy Puncture Site ABG pH ABG pCO2 at Pt Temp ABG pO2 at Pt Temp ABG HCO3 ABG O2 Sat (Measured) ABG O2 Content ABG Base Excess Jm Test O2 Delivery Device Oxygen Flow Rate Vent Mode Vent Rate Mechanical Rate Pressure Support Vent Sodium 135 L Potassium 3.6 Chloride 94 L Carbon Dioxide 26 Anion Gap 15 BUN 155.6 H* Creatinine 4.2 H Est GFR (CKD-EPI)AfAm 15.52 Est GFR (CKD-EPI)NonAf 13.39 POC Glucometer 192 268 Random Glucose 228 H Calcium 8.2 L Urine Color Urine Appearance Urine pH Ur Specific [place] Urine Protein Urine Glucose (UA) Urine Ketones Urine Blood Urine Nitrite Urine Bilirubin Urine Urobilinogen Ur Leukocyte Esterase Urine WBC (Auto) Urine RBC (Auto) Urine Casts (Auto) U Pathogenic Cast Auto U Epithel Cells (Auto) U Sm Round Cell (Auto) Urine Bacteria (Auto) Ur Random Creatinine Ur Random Urea Nitrogn Random Vancomycin 09/27/18 09/27/18 09/27/18 05:30 05:30 05:37 WBC 20.3 H RBC 2.67 L Hgb 7.7 L Hct 22.9 L MCV 85.6 MCH 28.7 MCHC 33.5 RDW 14.5 Plt Count 348 MPV 8.6 Absolute Neuts (auto) 19.4 H Neutrophils % 95.7 H Neutrophils % (Manual) 94.0 H Band Neutrophils % 0.0 Lymphocytes % 1.2 L D Lymphocytes % (Manual) 2.0 L D Monocytes % 1.5 L Monocytes % (Manual) 2 L D Eosinophils % 1.3 D Eosinophils % (Manual) 2.0 D Basophils % 0.3 Basophils % (Manual) 0.0 Myelocytes % (Man) 0 Promyelocytes % (Man) 0 Blast Cells % (Manual) 0 Nucleated RBC % 0 Metamyelocytes 0 D Hypochromia 0 Platelet Estimate Normal Polychromasia 0 Poikilocytosis 0 Anisocytosis 1+ Microcytosis 1+ Macrocytosis 0 Anticoagulation Therapy Puncture Site ABG pH ABG pCO2 at Pt Temp ABG pO2 at Pt Temp ABG HCO3 ABG O2 Sat (Measured) ABG O2 Content ABG Base Excess Jm Test O2 Delivery Device Oxygen Flow Rate Vent Mode Vent Rate Mechanical Rate Pressure Support Vent Sodium Potassium Chloride Carbon Dioxide Anion Gap BUN Creatinine Est GFR (CKD-EPI)AfAm Est GFR (CKD-EPI)NonAf POC Glucometer 210 Random Glucose Calcium Urine Color Urine Appearance Urine pH Ur Specific [place] Urine Protein Urine Glucose (UA) Urine Ketones Urine Blood Urine Nitrite Urine Bilirubin Urine Urobilinogen Ur Leukocyte Esterase Urine WBC (Auto) Urine RBC (Auto) Urine Casts (Auto) U Pathogenic Cast Auto U Epithel Cells (Auto) U Sm Round Cell (Auto) Urine Bacteria (Auto) Ur Random Creatinine Ur Random Urea Nitrogn Random Vancomycin 12.0 L 09/27/18 12:17 WBC RBC Hgb Hct MCV MCH MCHC RDW Plt Count MPV Absolute Neuts (auto) Neutrophils % Neutrophils % (Manual) Band Neutrophils % Lymphocytes % Lymphocytes % (Manual) Monocytes % Monocytes % (Manual) Eosinophils % Eosinophils % (Manual) Basophils % Basophils % (Manual) Myelocytes % (Man) Promyelocytes % (Man) Blast Cells % (Manual) Nucleated RBC % Metamyelocytes Hypochromia Platelet Estimate Polychromasia Poikilocytosis Anisocytosis Microcytosis Macrocytosis Anticoagulation Therapy Puncture Site ABG pH ABG pCO2 at Pt Temp ABG pO2 at Pt Temp ABG HCO3 ABG O2 Sat (Measured) ABG O2 Content ABG Base Excess Jm Test O2 Delivery Device Oxygen Flow Rate Vent Mode Vent Rate Mechanical Rate Pressure Support Vent Sodium Potassium Chloride Carbon Dioxide Anion Gap BUN Creatinine Est GFR (CKD-EPI)AfAm Est GFR (CKD-EPI)NonAf POC Glucometer 216 Random Glucose Calcium Urine Color Urine Appearance Urine pH Ur Specific [place] Urine Protein Urine Glucose (UA) Urine Ketones Urine Blood Urine Nitrite Urine Bilirubin Urine Urobilinogen Ur Leukocyte Esterase Urine WBC (Auto) Urine RBC (Auto) Urine Casts (Auto) U Pathogenic Cast Auto U Epithel Cells (Auto) U Sm Round Cell (Auto) Urine Bacteria (Auto) Ur Random Creatinine Ur Random Urea Nitrogn Random Vancomycin S1 s2 RRR Lungs decreased abd- soft, NT JVD+ edema+ PLAN CHF--will be off Lasix Starting dialysis today leucocytosis-- check blood cultures , ua and urine culture completed ceftriaxone ID eval noted-- on Zosyn no diarrhea may need renal biospy per renal ?thoracentesis-- will hold off plavix for now has splenic lesion-- can not do contrast imaging due to decreased renal function Problem List - Problems (1) BRET (acute kidney injury) Code(s): N17.9 - ACUTE KIDNEY FAILURE, UNSPECIFIED (2) Acute and chronic respiratory failure Code(s): J96.20 - ACUTE AND CHR RESP FAILURE, UNSP W HYPOXIA OR HYPERCAPNIA (3) Lwsgz-cf-[place] kidney injury Code(s): N17.9 - ACUTE KIDNEY FAILURE, UNSPECIFIED; N18.9 - CHRONIC KIDNEY DISEASE, UNSPECIFIED (4) CHF exacerbation Code(s): I50.9 - HEART FAILURE, UNSPECIFIED (5) Diabetes Code(s): E11.9 - TYPE 2 DIABETES MELLITUS WITHOUT COMPLICATIONS
[2018-09-27] MEDS: ALBUTEROL SO4 2.5/IPRATROPIUM 0.5 INH SOL 3 ML VIAL.NEB. NEB PRN ×3 (11:09→21:05)
--- NOTE | 2018-09-27 11:21 | PN ---
Teaching Attending Note Name of Resident: Skip Day ATTENDING PHYSICIAN STATEMENT I saw and evaluated the patient. I reviewed the resident's note and discussed the case with the resident. I agree with the resident's findings and plan as documented. SUBJECTIVE: Patient seen and examined in the ICU. Awake and alert. Breathing feels better on HFOT, but still mildly tachypneic. No CP. D/W renal: plan for HD today Intake & Output 09/24/18 09/25/18 09/26/18 09/27/18 23:59 23:59 23:59 23:59 Intake Total 500 790 690 270 Output Total 2300 1050 2500 700 Balance -1800 -260 -1810 -430 Weight 197 lb 199 lb 6.4 oz 202 lb 13.204 oz 200 lb 2.876 oz Last Vital Signs Temp Pulse Resp BP Pulse Ox 97.3 F L 64 19 129/58 L 95 09/27/18 10:00 09/27/18 10:00 09/27/18 10:00 09/27/18 10:00 09/27/18 08:12 Active Medications Albuterol/Ipratropium (Duoneb -) 1 amp NEB Q6H PRN PRN Reason: SHORTNESS OF BREATH Last Admin: 09/27/18 11:09 Dose: 1 amp Artificial Tears (Artificial Tears) 2 drop OU Q8H PRN PRN Reason: DRY EYES Atorvastatin Calcium (Lipitor -) 20 mg PO HS GREGORY Last Admin: 09/26/18 21:49 Dose: 20 mg Calcium Acetate (Phoslo -) 667 mg PO TIDCM GREGORY Last Admin: 09/27/18 08:49 Dose: 667 mg Hydralazine HCl (Apresoline -) 100 mg PO BID GREGORY Last Admin: 09/27/18 09:14 Dose: 100 mg Furosemide 100 mg/ Dextrose 100 mls @ 10 mls/hr IVPB TITR GREGORY Last Admin: 09/27/18 10:16 Dose: 10 mg/hr, 10 mls/hr Piperacillin Sod/Tazobactam (Sod 2.25 gm/ Dextrose) 50 mls @ 100 mls/hr IVPB Q8H-IV GREGORY; Protocol Last Admin: 09/27/18 09:32 Dose: 100 mls/hr Insulin Aspart (Novolog Vial Sliding Scale -) 1 vial SQ ACHS GREGORY; Protocol Last Admin: 09/27/18 06:47 Dose: 5 units Insulin Detemir (Levemir Vial) 10 units SQ HS [facility] Last Admin: 09/26/18 21:57 Dose: 10 unit Labetalol HCl (Normodyne -) 400 mg PO BID [facility] Last Admin: 09/27/18 09:15 Dose: 400 mg Methadone HCl 40 mg/ Methadone (HCl 20 mg) 60 mg PO DAILY@0600 [facility] Last Admin: 09/27/18 06:46 Dose: 60 mg Methylprednisolone Sodium Succinate (Solu-Medrol -) 40 mg IVPUSH Q6H-IV [facility] Last Admin: 09/27/18 09:14 Dose: 40 mg Sodium Chloride ([place] Nasal [place] -) 2 spray NS Q8H PRN PRN Reason: NASAL CONGESTION Last Admin: 09/23/18 22:20 Dose: 2 spray Constitutional: Yes: Mildly tachypneic Eyes: Yes: WNL HENT: Yes: WNL Neck: Yes: WNL Cardiovascular: Yes: Regular Rate and Rhythm, S1, S2 Respiratory: Yes: Rales & Rhonchi Gastrointestinal: Yes: Normal Bowel Sounds, Soft Extremities: Yes: WNL Edema: Yes Labs: Laboratory Results - last 24 hr 09/26/18 09/26/18 09/26/18 11:14 12:43 14:28 WBC RBC Hgb Hct MCV MCH MCHC RDW Plt Count MPV Absolute Neuts (auto) Neutrophils % Neutrophils % (Manual) Band Neutrophils % Lymphocytes % Lymphocytes % (Manual) Monocytes % Monocytes % (Manual) Eosinophils % Eosinophils % (Manual) Basophils % Basophils % (Manual) Myelocytes % (Man) Promyelocytes % (Man) Blast Cells % (Manual) Nucleated RBC % Metamyelocytes Hypochromia Platelet Estimate Polychromasia Poikilocytosis Anisocytosis Microcytosis Macrocytosis Anticoagulation Therapy Cancelled No Result Required. Puncture Site Cancelled Right radial Patient Temperature Cancelled ABG pH Cancelled 7.40 ABG pCO2 at Pt Temp Cancelled 40.6 ABG pO2 at Pt Temp Cancelled 49.5 L ABG HCO3 Cancelled 24.5 ABG O2 Sat (Measured) Cancelled 79.1 L ABG O2 Content Cancelled 6.9 L* ABG Base Excess Cancelled 0.3 Jm Test Cancelled Positive O2 Delivery Device Cancelled No Result Required. Oxygen Flow Rate Cancelled Yes Vent Mode Cancelled No Result Required. Vent Rate Cancelled No Result Required. Mechanical Rate Cancelled No Result Required. PEEP Cancelled Pressure Support Vent Cancelled No Result Required. Sodium Potassium Chloride Carbon Dioxide Anion Gap BUN Creatinine Est GFR (CKD-EPI)AfAm Est GFR (CKD-EPI)NonAf POC Glucometer 93 Random Glucose Calcium Urine Color Urine Appearance Urine pH Ur Specific [place] Urine Protein Urine Glucose (UA) Urine Ketones Urine Blood Urine Nitrite Urine Bilirubin Urine Urobilinogen Ur Leukocyte Esterase Urine WBC (Auto) Urine RBC (Auto) Urine Casts (Auto) U Pathogenic Cast Auto U Epithel Cells (Auto) U Sm Round Cell (Auto) Urine Bacteria (Auto) Ur Random Creatinine Ur Random Urea Nitrogn Random Vancomycin 09/26/18 09/26/18 09/26/18 15:15 15:15 17:06 WBC RBC Hgb Hct MCV MCH MCHC RDW Plt Count MPV Absolute Neuts (auto) Neutrophils % Neutrophils % (Manual) Band Neutrophils % Lymphocytes % Lymphocytes % (Manual) Monocytes % Monocytes % (Manual) Eosinophils % Eosinophils % (Manual) Basophils % Basophils % (Manual) Myelocytes % (Man) Promyelocytes % (Man) Blast Cells % (Manual) Nucleated RBC % Metamyelocytes Hypochromia Platelet Estimate Polychromasia Poikilocytosis Anisocytosis Microcytosis Macrocytosis Anticoagulation Therapy Puncture Site Patient Temperature ABG pH ABG pCO2 at Pt Temp ABG pO2 at Pt Temp ABG HCO3 ABG O2 Sat (Measured) ABG O2 Content ABG Base Excess Jm Test O2 Delivery Device Oxygen Flow Rate Vent Mode Vent Rate Mechanical Rate PEEP Pressure Support Vent Sodium Potassium Chloride Carbon Dioxide Anion Gap BUN Creatinine Est GFR (CKD-EPI)AfAm Est GFR (CKD-EPI)NonAf POC Glucometer 192 Random Glucose Calcium Urine Color Yellow Urine Appearance Cloudy Urine pH 5.0 Ur Specific [place] 1.011 Urine Protein 2+ H Urine Glucose (UA) Negative Urine Ketones Negative Urine Blood Negative Urine Nitrite Negative Urine Bilirubin Negative Urine Urobilinogen 0.2 Ur Leukocyte Esterase Negative Urine WBC (Auto) 2 Urine RBC (Auto) 4.5 Urine Casts (Auto) 99 U Pathogenic Cast Auto None seen U Epithel Cells (Auto) 5.6 U Sm Round Cell (Auto) None seen Urine Bacteria (Auto) 0.5 Ur Random Creatinine 43.0 Ur Random Urea Nitrogn 520 Random Vancomycin 09/26/18 09/27/18 09/27/18 21:52 05:30 05:30 WBC 20.3 H RBC 2.67 L Hgb 7.7 L Hct 22.9 L MCV 85.6 MCH 28.7 MCHC 33.5 RDW 14.5 Plt Count 348 MPV 8.6 Absolute Neuts (auto) 19.4 H Neutrophils % 95.7 H Neutrophils % (Manual) 94.0 H Band Neutrophils % 0.0 Lymphocytes % 1.2 L D Lymphocytes % (Manual) 2.0 L D Monocytes % 1.5 L Monocytes % (Manual) 2 L D Eosinophils % 1.3 D Eosinophils % (Manual) 2.0 D Basophils % 0.3 Basophils % (Manual) 0.0 Myelocytes % (Man) 0 Promyelocytes % (Man) 0 Blast Cells % (Manual) 0 Nucleated RBC % 0 Metamyelocytes 0 D Hypochromia 0 Platelet Estimate Normal Polychromasia 0 Poikilocytosis 0 Anisocytosis 1+ Microcytosis 1+ Macrocytosis 0 Anticoagulation Therapy Puncture Site Patient Temperature ABG pH ABG pCO2 at Pt Temp ABG pO2 at Pt Temp ABG HCO3 ABG O2 Sat (Measured) ABG O2 Content ABG Base Excess Jm Test O2 Delivery Device Oxygen Flow Rate Vent Mode Vent Rate Mechanical Rate PEEP Pressure Support Vent Sodium 135 L Potassium 3.6 Chloride 94 L Carbon Dioxide 26 Anion Gap 15 BUN 155.6 H* Creatinine 4.2 H Est GFR (CKD-EPI)AfAm 15.52 Est GFR (CKD-EPI)NonAf 13.39 POC Glucometer 268 Random Glucose 228 H Calcium 8.2 L Urine Color Urine Appearance Urine pH Ur Specific [place] Urine Protein Urine Glucose (UA) Urine Ketones Urine Blood Urine Nitrite Urine Bilirubin Urine Urobilinogen Ur Leukocyte Esterase Urine WBC (Auto) Urine RBC (Auto) Urine Casts (Auto) U Pathogenic Cast Auto U Epithel Cells (Auto) U Sm Round Cell (Auto) Urine Bacteria (Auto) Ur Random Creatinine Ur Random Urea Nitrogn Random Vancomycin 09/27/18 09/27/18 05:30 05:37 WBC RBC Hgb Hct MCV MCH MCHC RDW Plt Count MPV Absolute Neuts (auto) Neutrophils % Neutrophils % (Manual) Band Neutrophils % Lymphocytes % Lymphocytes % (Manual) Monocytes % Monocytes % (Manual) Eosinophils % Eosinophils % (Manual) Basophils % Basophils % (Manual) Myelocytes % (Man) Promyelocytes % (Man) Blast Cells % (Manual) Nucleated RBC % Metamyelocytes Hypochromia Platelet Estimate Polychromasia Poikilocytosis Anisocytosis Microcytosis Macrocytosis Anticoagulation Therapy Puncture Site Patient Temperature ABG pH ABG pCO2 at Pt Temp ABG pO2 at Pt Temp ABG HCO3 ABG O2 Sat (Measured) ABG O2 Content ABG Base Excess Jm Test O2 Delivery Device Oxygen Flow Rate Vent Mode Vent Rate Mechanical Rate PEEP Pressure Support Vent Sodium Potassium Chloride Carbon Dioxide Anion Gap BUN Creatinine Est GFR (CKD-EPI)AfAm Est GFR (CKD-EPI)NonAf POC Glucometer 210 Random Glucose Calcium Urine Color Urine Appearance Urine pH Ur Specific [place] Urine Protein Urine Glucose (UA) Urine Ketones Urine Blood Urine Nitrite Urine Bilirubin Urine Urobilinogen Ur Leukocyte Esterase Urine WBC (Auto) Urine RBC (Auto) Urine Casts (Auto) U Pathogenic Cast Auto U Epithel Cells (Auto) U Sm Round Cell (Auto) Urine Bacteria (Auto) Ur Random Creatinine Ur Random Urea Nitrogn Random Vancomycin 12.0 L Problem List - Problems (1) Pvhft-ly-ekggjjr kidney injury Code(s): N17.9 - ACUTE KIDNEY FAILURE, UNSPECIFIED; N18.9 - CHRONIC KIDNEY DISEASE, UNSPECIFIED (2) CHF exacerbation Code(s): I50.9 - HEART FAILURE, UNSPECIFIED (3) Chronic renal insufficiency, stage III (moderate) Code(s): N18.3 - CHRONIC KIDNEY DISEASE, STAGE 3 (MODERATE) (4) Diabetes Code(s): E11.9 - TYPE 2 DIABETES MELLITUS WITHOUT COMPLICATIONS (5) History of lung cancer Code(s): Z85.118 - PERSONAL HISTORY OF MALIGNANT NEOPLASM OF BRONCHUS AND LUNG (6) Normocytic anemia Code(s): D64.9 - ANEMIA, UNSPECIFIED (7) Dyspnea Code(s): R06.00 - DYSPNEA, UNSPECIFIED Assessment/Plan IMP DYSPNEA ACUTE HYPOXEMIC RESPIRATORY FAILURE BILATERAL INFILTRATES ACUTE ON CHRONIC CHF PNEUMONIA ACUTE ON CHRONIC KIDNEY INJURY ANEMIA HTN DM H/O LUNG CA S/P RESECTION 1984 (?) ILD PLAN PLAN FOR HD TODAY O2 ABX PER ID F/U CHEST X-RAYS MONITOR LYTES,RENAL FUNCTION MONITOR CBC DAILY WT STRICT I+Os REQUIRES ICU MONITORING FOR HFOT AND TENUOUS STATUS Dr Dehspande Critical care time spent in reviewing chart, evaluating patient and formulating plan - 36 minutes.
--- NOTE | 2018-09-27 12:24 | PN ---
Progress Note (short form) - Note Progress Note: s: less sob today, no chest pain, palps, dizziness. Current Medications Generic Name Dose Route Start Last Admin Trade Name Freq PRN Reason Stop Dose Admin Albuterol/Ipratropium 1 amp 09/22/18 23:50 09/27/18 11:09 Duoneb - NEB 1 amp Q6H PRN Administration SHORTNESS OF BREATH Artificial Tears 2 drop 09/20/18 16:13 Artificial Tears OU Q8H PRN DRY EYES Atorvastatin Calcium 20 mg 09/17/18 22:00 09/26/18 21:49 Lipitor - PO 20 mg HS GREGORY Administration Calcium Acetate 667 mg 09/25/18 17:30 09/27/18 12:21 Phoslo - PO 667 mg TIDCM GREGORY Administration Hydralazine HCl 100 mg 09/19/18 22:00 09/27/18 09:14 Apresoline - PO 100 mg BID GREGORY Administration Furosemide 100 mg/ Dextrose 100 mls @ 10 mls/hr 09/25/18 20:00 09/27/18 10:16 IVPB 10 mg/hr TITR GREGORY 10 mls/hr Administration 10 MG/HR Piperacillin Sod/Tazobactam 50 mls @ 100 mls/hr 09/26/18 13:45 09/27/18 09:32 Sod 2.25 gm/ Dextrose IVPB 100 mls/hr Q8H-IV GREGORY Administration Protocol Sodium Chloride 250 mls @ 3,000 mls/hr 09/27/18 12:30 Normal Saline - IV 09/28/18 12:29 PRN PRN Hypotension during Dialysis Insulin Aspart 1 vial 09/17/18 16:30 09/27/18 12:20 Novolog Vial Sliding Scale - SQ 5 units ACHS GREGORY Administration Protocol Insulin Detemir 10 units 09/17/18 22:00 09/26/18 21:57 Levemir Vial SQ 10 unit HS GREGORY Administration Labetalol HCl 400 mg 09/19/18 10:40 09/27/18 09:15 Normodyne - PO 400 mg BID GREGORY Administration Methadone HCl 40 mg/ Methadone 60 mg 09/27/18 06:30 09/27/18 06:46 HCl 20 mg PO 60 mg DAILY@0600 GREGORY Administration Methylprednisolone Sodium Succinate 40 mg 09/26/18 15:00 06/20/19 09:14 Solu-Medrol - IVPUSH 40 mg Q6H-IV GREGORY Administration Sodium Chloride 2 spray 09/23/18 15:50 09/23/18 22:20 [place] Nasal [place] - NS 2 spray Q8H PRN Administration NASAL CONGESTION Vital Signs Period Temp Pulse Resp BP Sys/Bansal Pulse Ox Last 24 Hr 97.3 F-98.3 F 64-79 14-21 129-161/50-67 90-95 Constitutional: Yes: No Distress, Calm Eyes: No: Sclera Icterus HENT: No: Nasal Congestion Cardiovascular: Yes: Regular Rate and Rhythm, JVD, S1, S2. No: Gallop, Murmur Respiratory: Yes: CTA Bilaterally. nl eff. Gastrointestinal: Yes: Normal Bowel Sounds, Soft. No: Tenderness Extremities: No: Cold, Cyanosis Edema: 1+ le edema bl Integumentary: No: Jaundice diaphoresis Neurological: Yes: Alert, Oriented (x3) Psychiatric: No: Agitated CBC, BMP 09/27/18 05:30 09/27/18 05:30 Assessment/Plan mibi 2015 no ischemia, nl EF EKG: sinus, PVC, no ischemic changes echo 09/2018 nl LV function, mild MAC, tr MR, tr AR, RVSP 32 mmHg tele: sinus CXR: extensive bilat infiltrates with R effusion, worse 68M h/o HTN, DM, HLD, PAD s/p femoral stent, prior smoker, R sided lung ca s/p partial resection p/w shortness of breath shortness of breath, PNA, acute diastolic CHF exacerbation: - likely multifactorial - h/o lung ca s/p resection, findings concerning for PNA - abx, nebs per primary, pulm - elevated BNP with congestion on CXR, likely component of HF - nl EF in 2016 - echo nl LV function - received lasix 40 IV daily--was held for elevated BUN/Cr, received IVF--09/23 with mild edema, worsening resp status, weight up 193 to 200, likely component of congestion. received lasix 80 mg IV BID, now on lasix gtt per renal - weight stable, BUN/Cr rising, may need dialysis. Renal following. BRET on CKD: -unknown baseline function -likely component of cardiorenal syndrome here HTN - holding home diuretic, valsartan - bp reasonable at present - cont current meds HLD: - cont statin PAD: - cont statin, aspirin
[2018-09-27] MEDS ORDERED: SODIUM CHLORIDE 250 ML IV PRN (12:30)
--- NOTE | 2018-09-27 12:33 | PN ---
Progress Note (short form) - Note Progress Note: Renal follow up for BRET Pt seen and examined in the ICU awake and alert on High flow O2 transfered to ICU for high flow O2 feels better making urine Vital Signs Temperature 97.3 F L 09/27/18 10:00 Pulse Rate 64 09/27/18 10:00 Respiratory Rate 19 09/27/18 10:00 Blood Pressure 129/58 L 09/27/18 10:00 O2 Sat by Pulse Oximetry (%) 95 09/27/18 08:12 Intake & Output 09/24/18 09/25/18 09/26/18 09/27/18 23:59 23:59 23:59 23:59 Intake Total 500 790 690 270 Output Total 2300 1050 2500 700 Balance -1800 -260 -1810 -430 Weight 89.358 kg 90.446 kg 92 kg 90.8 kg NAD RRR, no M/R course BS soft, obese NT/ND + edema in LE CBC, BMP 09/27/18 05:30 09/27/18 05:30 Current Medications Albuterol/Ipratropium (Duoneb -) 1 amp NEB Q6H PRN PRN Reason: SHORTNESS OF BREATH Last Admin: 09/27/18 11:09 Dose: 1 amp Artificial Tears (Artificial Tears) 2 drop OU Q8H PRN PRN Reason: DRY EYES Atorvastatin Calcium (Lipitor -) 20 mg PO HS GREGORY Last Admin: 09/26/18 21:49 Dose: 20 mg Calcium Acetate (Phoslo -) 667 mg PO TIDCM GREGORY Last Admin: 09/27/18 12:21 Dose: 667 mg Hydralazine HCl (Apresoline -) 100 mg PO BID GREGORY Last Admin: 09/27/18 09:14 Dose: 100 mg Furosemide 100 mg/ Dextrose 100 mls @ 10 mls/hr IVPB TITR GREGORY Last Admin: 09/27/18 10:16 Dose: 10 mg/hr, 10 mls/hr Piperacillin Sod/Tazobactam (Sod 2.25 gm/ Dextrose) 50 mls @ 100 mls/hr IVPB Q8H-IV GREG[facility]; Protocol Last Admin: 09/27/18 09:32 Dose: 100 mls/hr Sodium Chloride (Normal Saline -) 250 mls @ 3,000 mls/hr IV PRN PRN PRN Reason: Hypotension during Dialysis Stop: 09/28/18 12:29 Insulin Aspart (Novolog Vial Sliding Scale -) 1 vial SQ ACHS [facility]; Protocol Last Admin: 09/27/18 12:20 Dose: 5 units Insulin Detemir (Levemir Vial) 10 units SQ HS [facility] Last Admin: 09/26/18 21:57 Dose: 10 unit Labetalol HCl (Normodyne -) 400 mg PO BID [facility] Last Admin: 09/27/18 09:15 Dose: 400 mg Methadone HCl 40 mg/ Methadone (HCl 20 mg) 60 mg PO DAILY@0600 [facility] Last Admin: 09/27/18 06:46 Dose: 60 mg Methylprednisolone Sodium Succinate (Solu-Medrol -) 40 mg IVPUSH Q6H-IV [facility] Last Admin: 09/27/18 09:14 Dose: 40 mg Sodium Chloride ([place] -) 2 spray NS Q8H PRN PRN Reason: NASAL CONGESTION Last Admin: 09/23/18 22:20 Dose: 2 spray CXR- left perihilar infiltrate, large right effusion with infiltrate ECHO- normal LV/RV function, trace MR 68 year old gentleman with hx of of hypertension, DM on insulin, PVD s/ p Le stents, BPH, Hx of Lung cancer s/p resection who presented with SOB and noted to have BUN/Cr of 79/3.2. #Acute shortness of breath form diastolic HF + PNA #Peripheral edema #Acute on chronic renal insufficiency #Anemia #Hypertension #BPH will plan for dialysis today via temporary dialysis catheter as clinical status unchanged and BUN/Cr still rising will plan for additional HD on Monday and Monday with UF as tolerated will discontinue Lasix gtt, and monitor urine output UPCR is 3.2, CHICHI negative, ANCA is negative so unlikely that pt has drug induced lupus Urine Legionella Ag negative CT of the chest consistent with PNA Renal imgaing showed no obstruction but did show lesion on spleen, would need CT with contrast to evalulate but should wait until renal function is improved Trend daily weights continue labetalol, Hydralazine and lasix and titrate to goal BP < 140/90, Discontinue Cardura and amlodipine (can cause peripheral edema as medication side effect) BP is reasonably well controlled off Cardura and amlodipine Dariusz Iniguez DO
--- NOTE | 2018-09-27 14:00 | PN ---
Physical Exam: SUBJECTIVE: Patient seen and examined Continues to require high flow O2 to maintain 02 saturation above 88. Pt talking in full sentences, no acute distress, no overnight events OBJECTIVE: Vital Signs Period Temp Pulse Resp BP Sys/Bansal Pulse Ox Last 24 Hr 97.3 F-98.3 F 64-79 14-21 129-161/50-67 90-95 GENERAL: The patient is awake, alert, and fully oriented, in no acute distress. HEAD: Normal with no signs of trauma. EYES: PERRL, extraocular movements intact, sclera anicteric, conjunctiva clear. No ptosis. ENT: Ears normal, nares patent, oropharynx clear without exudates, moist mucous membranes. NECK: Trachea midline, full range of motion, supple. LUNGS: Breath sounds equal, clear to auscultation bilaterally, no wheezes, no crackles, no accessory muscle use. On high flow HEART: Regular rate and rhythm, S1, S2 without murmur, rub or gallop. ABDOMEN: Soft, nontender, nondistended, normoactive bowel sounds, no guarding, no rebound, no hepatosplenomegaly, no masses. EXTREMITIES: 2+ pulses, warm, well-perfused, no edema. NEUROLOGICAL: Cranial nerves II through XII grossly intact. Normal speech, gait not observed. PSYCH: Normal mood, normal affect. SKIN: Warm, dry, normal turgor, no rashes or lesions noted Laboratory Results - last 24 hr 09/26/18 09/26/18 09/26/18 14:28 15:15 15:15 WBC RBC Hgb Hct MCV MCH MCHC RDW Plt Count MPV Absolute Neuts (auto) Neutrophils % Neutrophils % (Manual) Band Neutrophils % Lymphocytes % Lymphocytes % (Manual) Monocytes % Monocytes % (Manual) Eosinophils % Eosinophils % (Manual) Basophils % Basophils % (Manual) Myelocytes % (Man) Promyelocytes % (Man) Blast Cells % (Manual) Nucleated RBC % Metamyelocytes Hypochromia Platelet Estimate Polychromasia Poikilocytosis Anisocytosis Microcytosis Macrocytosis Anticoagulation Therapy No Result Required. Puncture Site Right radial ABG pH 7.40 ABG pCO2 at Pt Temp 40.6 ABG pO2 at Pt Temp 49.5 L ABG HCO3 24.5 ABG O2 Sat (Measured) 79.1 L ABG O2 Content 6.9 L* ABG Base Excess 0.3 Jm Test Positive O2 Delivery Device No Result Required. Oxygen Flow Rate Yes Vent Mode No Result Required. Vent Rate No Result Required. Mechanical Rate No Result Required. Pressure Support Vent No Result Required. Sodium Potassium Chloride Carbon Dioxide Anion Gap BUN Creatinine Est GFR (CKD-EPI)AfAm Est GFR (CKD-EPI)NonAf POC Glucometer Random Glucose Calcium Urine Color Yellow Urine Appearance Cloudy Urine pH 5.0 Ur Specific [place] 1.011 Urine Protein 2+ H Urine Glucose (UA) Negative Urine Ketones Negative Urine Blood Negative Urine Nitrite Negative Urine Bilirubin Negative Urine Urobilinogen 0.2 Ur Leukocyte Esterase Negative Urine WBC (Auto) 2 Urine RBC (Auto) 4.5 Urine Casts (Auto) 99 U Pathogenic Cast Auto None seen U Epithel Cells (Auto) 5.6 U Sm Round Cell (Auto) None seen Urine Bacteria (Auto) 0.5 Ur Random Creatinine 43.0 Ur Random Urea Nitrogn 520 Random Vancomycin 09/26/18 09/26/18 09/27/18 17:06 21:52 05:30 WBC RBC Hgb Hct MCV MCH MCHC RDW Plt Count MPV Absolute Neuts (auto) Neutrophils % Neutrophils % (Manual) Band Neutrophils % Lymphocytes % Lymphocytes % (Manual) Monocytes % Monocytes % (Manual) Eosinophils % Eosinophils % (Manual) Basophils % Basophils % (Manual) Myelocytes % (Man) Promyelocytes % (Man) Blast Cells % (Manual) Nucleated RBC % Metamyelocytes Hypochromia Platelet Estimate Polychromasia Poikilocytosis Anisocytosis Microcytosis Macrocytosis Anticoagulation Therapy Puncture Site ABG pH ABG pCO2 at Pt Temp ABG pO2 at Pt Temp ABG HCO3 ABG O2 Sat (Measured) ABG O2 Content ABG Base Excess Jm Test O2 Delivery Device Oxygen Flow Rate Vent Mode Vent Rate Mechanical Rate Pressure Support Vent Sodium 135 L Potassium 3.6 Chloride 94 L Carbon Dioxide 26 Anion Gap 15 BUN 155.6 H* Creatinine 4.2 H Est GFR (CKD-EPI)AfAm 15.52 Est GFR (CKD-EPI)NonAf 13.39 POC Glucometer 192 268 Random Glucose 228 H Calcium 8.2 L Urine Color Urine Appearance Urine pH Ur Specific [place] Urine Protein Urine Glucose (UA) Urine Ketones Urine Blood Urine Nitrite Urine Bilirubin Urine Urobilinogen Ur Leukocyte Esterase Urine WBC (Auto) Urine RBC (Auto) Urine Casts (Auto) U Pathogenic Cast Auto U Epithel Cells (Auto) U Sm Round Cell (Auto) Urine Bacteria (Auto) Ur Random Creatinine Ur Random Urea Nitrogn Random Vancomycin 09/27/18 09/27/18 09/27/18 05:30 05:30 05:37 WBC 20.3 H RBC 2.67 L Hgb 7.7 L Hct 22.9 L MCV 85.6 MCH 28.7 MCHC 33.5 RDW 14.5 Plt Count 348 MPV 8.6 Absolute Neuts (auto) 19.4 H Neutrophils % 95.7 H Neutrophils % (Manual) 94.0 H Band Neutrophils % 0.0 Lymphocytes % 1.2 L D Lymphocytes % (Manual) 2.0 L D Monocytes % 1.5 L Monocytes % (Manual) 2 L D Eosinophils % 1.3 D Eosinophils % (Manual) 2.0 D Basophils % 0.3 Basophils % (Manual) 0.0 Myelocytes % (Man) 0 Promyelocytes % (Man) 0 Blast Cells % (Manual) 0 Nucleated RBC % 0 Metamyelocytes 0 D Hypochromia 0 Platelet Estimate Normal Polychromasia 0 Poikilocytosis 0 Anisocytosis 1+ Microcytosis 1+ Macrocytosis 0 Anticoagulation Therapy Puncture Site ABG pH ABG pCO2 at Pt Temp ABG pO2 at Pt Temp ABG HCO3 ABG O2 Sat (Measured) ABG O2 Content ABG Base Excess Jm Test O2 Delivery Device Oxygen Flow Rate Vent Mode Vent Rate Mechanical Rate Pressure Support Vent Sodium Potassium Chloride Carbon Dioxide Anion Gap BUN Creatinine Est GFR (CKD-EPI)AfAm Est GFR (CKD-EPI)NonAf POC Glucometer 210 Random Glucose Calcium Urine Color Urine Appearance Urine pH Ur Specific [place] Urine Protein Urine Glucose (UA) Urine Ketones Urine Blood Urine Nitrite Urine Bilirubin Urine Urobilinogen Ur Leukocyte Esterase Urine WBC (Auto) Urine RBC (Auto) Urine Casts (Auto) U Pathogenic Cast Auto U Epithel Cells (Auto) U Sm Round Cell (Auto) Urine Bacteria (Auto) Ur Random Creatinine Ur Random Urea Nitrogn Random Vancomycin 12.0 L 09/27/18 12:17 WBC RBC Hgb Hct MCV MCH MCHC RDW Plt Count MPV Absolute Neuts (auto) Neutrophils % Neutrophils % (Manual) Band Neutrophils % Lymphocytes % Lymphocytes % (Manual) Monocytes % Monocytes % (Manual) Eosinophils % Eosinophils % (Manual) Basophils % Basophils % (Manual) Myelocytes % (Man) Promyelocytes % (Man) Blast Cells % (Manual) Nucleated RBC % Metamyelocytes Hypochromia Platelet Estimate Polychromasia Poikilocytosis Anisocytosis Microcytosis Macrocytosis Anticoagulation Therapy Puncture Site ABG pH ABG pCO2 at Pt Temp ABG pO2 at Pt Temp ABG HCO3 ABG O2 Sat (Measured) ABG O2 Content ABG Base Excess Jm Test O2 Delivery Device Oxygen Flow Rate Vent Mode Vent Rate Mechanical Rate Pressure Support Vent Sodium Potassium Chloride Carbon Dioxide Anion Gap BUN Creatinine Est GFR (CKD-EPI)AfAm Est GFR (CKD-EPI)NonAf POC Glucometer 216 Random Glucose Calcium Urine Color Urine Appearance Urine pH Ur Specific [place] Urine Protein Urine Glucose (UA) Urine Ketones Urine Blood Urine Nitrite Urine Bilirubin Urine Urobilinogen Ur Leukocyte Esterase Urine WBC (Auto) Urine RBC (Auto) Urine Casts (Auto) U Pathogenic Cast Auto U Epithel Cells (Auto) U Sm Round Cell (Auto) Urine Bacteria (Auto) Ur Random Creatinine Ur Random Urea Nitrogn Random Vancomycin Active Medications Generic Name Dose Route Start Last Admin Trade Name Freq PRN Reason Stop Dose Admin Albuterol/Ipratropium 1 amp 09/22/18 23:50 09/27/18 11:09 Duoneb - NEB 1 amp Q6H PRN Administration SHORTNESS OF BREATH Artificial Tears 2 drop 09/20/18 16:13 Artificial Tears OU Q8H PRN DRY EYES Atorvastatin Calcium 20 mg 09/17/18 22:00 09/26/18 21:49 Lipitor - PO 20 mg HS GREGORY Administration Calcium Acetate 667 mg 09/25/18 17:30 09/27/18 12:21 Phoslo - PO 667 mg TIDCM GREGORY Administration Hydralazine HCl 100 mg 09/19/18 22:00 09/27/18 09:14 Apresoline - PO 100 mg BID GREGORY Administration Furosemide 100 mg/ Dextrose 100 mls @ 10 mls/hr 09/25/18 20:00 09/27/18 10:16 IVPB 10 mg/hr TITR GREGORY 10 mls/hr Administration 10 MG/HR Piperacillin Sod/Tazobactam 50 mls @ 100 mls/hr 09/26/18 13:45 09/27/18 09:32 Sod 2.25 gm/ Dextrose IVPB 100 mls/hr Q8H-IV GREGORY Administration Protocol Sodium Chloride 250 mls @ 3,000 mls/hr 09/27/18 12:30 Normal Saline - IV 09/28/18 12:29 PRN PRN Hypotension during Dialysis Insulin Aspart 1 vial 09/17/18 16:30 09/27/18 12:20 Novolog Vial Sliding Scale - SQ 5 units ACHS GREGORY Administration Protocol Insulin Detemir 10 units 09/17/18 22:00 09/26/18 21:57 Levemir Vial SQ 10 unit HS GREGORY Administration Labetalol HCl 400 mg 09/19/18 10:40 09/27/18 09:15 Normodyne - PO 400 mg BID GREGORY Administration Methadone HCl 40 mg/ Methadone 60 mg 09/27/18 06:30 09/27/18 06:46 HCl 20 mg PO 60 mg DAILY@0600 GREGORY Administration Methylprednisolone Sodium Succinate 40 mg 09/26/18 15:00 09/27/18 09:14 Solu-Medrol - IVPUSH 40 mg Q6H-IV GREGORY Administration Sodium Chloride 2 spray 09/23/18 15:50 09/23/18 22:20 [place] Nasal [place] - NS 2 spray Q8H PRN Administration NASAL CONGESTION ASSESSMENT/PLAN: ASSESSMENT/PLAN: 68 year old male with a past medical history of hypertension, insulin dependent diabetes, hyperlipidemia, NPH, UTI and R sided lung CA s/p resection many years ago (benign according to daughter) was brought to the hospital for shortness of breath and admitted for treatment of acute hypoxic respiratory failure 2/2 CHF exacerbation and pneumonia Discussed case with Dr. Arzola. Pt will require HD today to to progressive worsening of kidney function Pt chest CT and HPI do not fit with a Pneumonia. Will stop hydralazine and send anti histone AB for possible drug induced Lupus due to lung path and new renal concerns. Cardiovascular -patient is being treated for diastolic CHF exacerbation -monitor daily weights/I's/O's -on lasix ggt with moderate urine output -does not appear that this is helping resolve patient's overloaded status, may need dialysis -echo EF 65, RV pressure 32, no significant abnormalities -continue antihypertensives as prescribed -cardiology following Pulmonary -patient was saturating around 88-90% while on bipap -will bring to ICU and monitor on high flow, on 60lpm -treating for bilateral pneumonia -solumedrol 40q6h on zosyn -ID consultation -CXR in AM -nish Renal -patient has azotemia and worsening of his chronic kidney disease -dialysis today, Nephro will continue to follow -repeat BMP in AM -Anti histone AB pending FEN -no standing fluids -replete lytes as necessary in AM Disposition -monitor in ICU Visit type - Emergency Visit Emergency Visit: No - New Patient This patient is new to me today: No - Critical Care Critical Care patient: Yes Total Critical Care Time (in minutes): 36 Critical Care Statement: The care of this patient involved high complexity decision making to prevent further life threatening deterioration of the patient 's condition and/or to evaluate & treat vital organ system(s) failure or risk of failure.
--- NOTE | 2018-09-27 14:35 | PN ---
Progress Note (short form) - Note Progress Note: patient on high flow oxygen more comfortable currently being dialyzed no fevers nonproductive cough - family not aware, on methadone, treated for hepatiitis C in the past thinks he has been tested for HIV but not sure agrees to HIV testing Vital Signs Period Temp Pulse Resp BP Sys/Bansal Pulse Ox Last 24 Hr 97.3 F-98.3 F 64-79 14-21 129-161/50-67 90-95 no thrush cor rrr lung decreased bs at bases abd soft,nt ext +edema CBC, BMP 09/27/18 05:30 09/27/18 05:30 cxray unchanged Microbiology 09/26/18 12:35 Blood - Peripheral Venous Blood Culture - Preliminary NO GROWTH OBTAINED AFTER 24 HOURS, INCUBATION TO CONTINUE FOR 4 DAYS. 09/26/18 12:40 Blood - Peripheral Venous Blood Culture - Preliminary NO GROWTH OBTAINED AFTER 24 HOURS, INCUBATION TO CONTINUE FOR 4 DAYS. 09/26/18 15:15 Urine - Urine - Catheterized Urine Culture - Final NO GROWTH OBTAINED 09/23/18 14:35 Urine For Antigen Detection Legionella Antigen - Final 09/23/18 14:35 Urine For Antigen Detection Streptococcus pneumoniae Antigen (M - Final 09/17/18 17:05 Blood - Peripheral Venous Blood Culture - Final NO GROWTH AFTER 5 DAYS INCUBATION 09/17/18 16:00 Blood - Peripheral Venous Blood Culture - Final NO GROWTH AFTER 5 DAYS INCUBATION 09/20/18 07:00 Urine For Antigen Detection Legionella Antigen - Final 09/20/18 07:00 Urine For Antigen Detection Streptococcus pneumoniae Antigen (M - Final Current Medications Albuterol/Ipratropium (Duoneb -) 1 amp NEB Q6H PRN PRN Reason: SHORTNESS OF BREATH Last Admin: 09/27/18 11:09 Dose: 1 amp Artificial Tears (Artificial Tears) 2 drop OU Q8H PRN PRN Reason: DRY EYES Atorvastatin Calcium (Lipitor -) 20 mg PO HS GREGORY Last Admin: 09/26/18 21:49 Dose: 20 mg Calcium Acetate (Phoslo -) 667 mg PO TIDCM [facility]ORY Last Admin: 09/27/18 12:21 Dose: 667 mg Furosemide 100 mg/ Dextrose 100 mls @ 10 mls/hr IVPB TITR [facility] Last Admin: 09/27/18 10:16 Dose: 10 mg/hr, 10 mls/hr Piperacillin Sod/Tazobactam (Sod 2.25 gm/ Dextrose) 50 mls @ 100 mls/hr IVPB Q8H-IV [facility]; Protocol Last Admin: 09/27/18 09:32 Dose: 100 mls/hr Sodium Chloride (Normal Saline -) 250 mls @ 3,000 mls/hr IV PRN PRN PRN Reason: Hypotension during Dialysis Stop: 09/28/18 12:29 Insulin Aspart (Novolog Vial Sliding Scale -) 1 vial SQ ACHS [facility]; Protocol Last Admin: 09/27/18 12:20 Dose: 5 units Insulin Detemir (Levemir Vial) 10 units SQ HS [facility] Last Admin: 09/26/18 21:57 Dose: 10 unit Labetalol HCl (Normodyne -) 400 mg PO BID [facility] Last Admin: 09/27/18 09:15 Dose: 400 mg Methadone HCl 40 mg/ Methadone (HCl 20 mg) 60 mg PO DAILY@0600 [facility] Last Admin: 09/27/18 06:46 Dose: 60 mg Methylprednisolone Sodium Succinate (Solu-Medrol -) 40 mg IVPUSH Q6H-IV [facility] Last Admin: 09/27/18 09:14 Dose: 40 mg Sodium Chloride ([place] Nasal [place] -) 2 spray NS Q8H PRN PRN Reason: NASAL CONGESTION Last Admin: 09/23/18 22:20 Dose: 2 spray a/p ?pneumonia- continue zosyn, f/u cultures check HIV today ?inflammatory reaction- ?hydralazine, now on steroids histone antibody ordered ?heart failure- per cardiology BRET/ckd per renal diabetes d/w ICU team Problem List - Problems (1) Leukocytosis Code(s): D72.829 - ELEVATED WHITE BLOOD CELL COUNT, UNSPECIFIED (2) Pneumonia Code(s): J18.9 - PNEUMONIA, UNSPECIFIED ORGANISM (3) Acute and chronic respiratory failure Code(s): J96.20 - ACUTE AND CHR RESP FAILURE, UNSP W HYPOXIA OR HYPERCAPNIA (4) [id number] kidney injury Code(s): N17.9 - ACUTE KIDNEY FAILURE, UNSPECIFIED; N18.9 - CHRONIC KIDNEY DISEASE, UNSPECIFIED (5) Diabetes Code(s): E11.9 - TYPE 2 DIABETES MELLITUS WITHOUT COMPLICATIONS (6) History of lung cancer Code(s): Z85.118 - PERSONAL HISTORY OF MALIGNANT NEOPLASM OF BRONCHUS AND LUNG
[2018-09-27] MEDS ORDERED: PT OWN MED DRAWER 7, Y5N ONE (19:37)
[2018-09-27] MEDS: ATORVASTATIN CA 20 MG TABLET (FP) PO SCH (21:20)
[2018-09-27] MEDS: INSULIN (LEVEMIR) 100 UNITS/ML UNITS SQ SCH ×2 (21:32→21:40)
[2018-09-28] MEDS ORDERED: DEXTROSE 5%-WATER - 50 ML IVPB ONE ×3 (03:45→17:11)
[2018-09-28] MEDS ORDERED: PIPERACILLIN/TAZOBACTAM 2.25 GM VIAL IVPB ONE ×3 (03:45→17:11)
[2018-09-28] MEDS: PIPERACILLIN/TAZOB 2.25 GM 2.25 GM in DEXTROSE 5%-WATER - 50 ML IVPB SCH ×3 (04:04→17:13)
[2018-09-28] MEDS: methylPREDNISolone NA SUCC 40 MG/1 ML VIAL IVPUSH SCH ×4 (04:05→22:27)
[2018-09-28] MEDS ORDERED: METHADONE HCL 10 MG TABLET ONE (05:28)
[2018-09-28] MEDS ORDERED: METHADONE HCL 40 MG DISPERSABLE TABLET ONE (05:28)
[2018-09-28] MEDS: METHADONE 40 MG, METHADONE 20 MG PO SCH (06:17)
[2018-09-28] MEDS: INSULIN SLIDING SCALE (NOVOLOG) 1 VIAL SQ SCH ×4 (06:18→22:27)
[2018-09-28 06:30] LABS: MCH 28.6 pg (25.7-33.7); MCHC 33.4 g/dl (32.0-35.9); MEAN CELL VOLUME 85.6 fl (80-96); MEAN PLT VOLUME 8.4 fl (7.5-11.1); PLATELET COUNT 311 K/MM3 (134-434); RDW 14.5 % (11.9-15.9); WHITE BLOOD COUNT 22.5 K/mm3 (4.0-10.0)
[2018-09-28 07:03] LABS: ALBUMIN 1.7 g/dl (3.4-5.0); BILIRUBIN,TOTAL 0.4 mg/dL (0.2-1); CALCIUM 8.1 mg/dL (8.5-10.1); CREATININE 3.6 mg/dL (0.55-1.3); POTASSIUM 3.4 mmol/L (3.5-5.1); TOT PROT 5.6 g/dl (6.4-8.2)
[2018-09-28] MEDS ORDERED: SODIUM CHLORIDE 250 ML IV PRN ×2 (07:36→11:55)
[2018-09-28 08:08] LABS: BLOOD UREA NITROGEN 134.9 mg/dL (7-18)
--- NOTE | 2018-09-28 08:54 | PN ---
Progress Note, Physician Chief Complaint: feeling better History of Present Illness: weight down TELE: NSR - Current Medication List Current Medications: Active Medications Albumin Human (Albumin Human 25%) 12.5 gm IVPB Q30M [facility] Stop: 09/28/18 09:16 Artificial Tears (Artificial Tears) 2 drop OU Q8H PRN PRN Reason: DRY EYES Atorvastatin Calcium (Lipitor -) 20 mg PO HS [facility] Last Admin: 09/27/18 21:20 Dose: 20 mg Calcium Acetate (Phoslo -) 667 mg PO TIDCM [facility] Last Admin: 09/27/18 18:20 Dose: 667 mg Piperacillin Sod/Tazobactam (Sod 2.25 gm/ Dextrose) 50 mls @ 100 mls/hr IVPB Q8H-IV [facility]; Protocol Last Admin: 09/28/18 04:04 Dose: 100 mls/hr Sodium Chloride (Normal Saline -) 250 mls @ 3,000 mls/hr IV PRN PRN PRN Reason: Hypotension during Dialysis Stop: 09/28/18 12:29 Sodium Chloride (Normal Saline -) 250 mls @ 3,000 mls/hr IV PRN PRN PRN Reason: Hypotension during Dialysis Stop: 09/29/18 07:36 Insulin Aspart (Novolog Vial Sliding Scale -) 1 vial SQ [facility]; Protocol Last Admin: 09/28/18 06:18 Dose: 3 units Insulin Detemir (Levemir Vial) 10 units SQ [facility] Last Admin: 09/27/18 21:40 Dose: 10 unit Labetalol HCl (Normodyne -) 400 mg PO BID [facility] Last Admin: 09/27/18 21:20 Dose: 400 mg Methadone HCl 40 mg/ Methadone (HCl 20 mg) 60 mg PO DAILY@0600 [facility] Last Admin: 09/28/18 06:17 Dose: 60 mg Methylprednisolone Sodium Succinate (Solu-Medrol -) 40 mg IVPUSH Q6H-IV [facility] Last Admin: 09/28/18 04:05 Dose: 40 mg Sodium Chloride ([place] Nasal [place] -) 2 spray NS Q8H PRN PRN Reason: NASAL CONGESTION Last Admin: 09/23/18 22:20 Dose: 2 spray - Objective Vital Signs: Vital Signs Temperature 97.8 F 09/28/18 06:00 Pulse Rate 64 09/28/18 06:00 Respiratory Rate 13 09/28/18 06:00 Blood Pressure 166/64 09/28/18 06:00 O2 Sat by Pulse Oximetry (%) 94 L 09/27/18 21:10 Constitutional: Yes: Calm Cardiovascular: Yes: Regular Rate and Rhythm Respiratory: Yes: Rhonchi Gastrointestinal: Yes: Soft Edema: Yes Edema: LLE: 2+, RLE: 2+ Neurological: Yes: Alert, Oriented ...Motor Strength: WNL Labs: CBC, BMP 09/28/18 05:45 09/28/18 05:45 INR, PTT INR 1.11 (0.83-1.09) H 09/17/18 12:23 Laboratory Tests 09/28/18 09/28/18 05:45 05:45 WBC 22.5 H Hgb 8.0 L Plt Count 311 Sodium 137 Potassium 3.4 L BUN 134.9 H* Creatinine 3.6 H Est GFR (CKD-EPI)NonAf 16.14 Random Glucose 202 H - ....Imaging EKG: Image Reviewed Assessment/Plan Assessment/Plan mibi 2015 no ischemia, nl EF EKG: sinus, PVC, no ischemic changes echo 09/2018 nl LV function, mild MAC, tr MR, tr AR, RVSP 32 mmHg CXR: extensive bilat infiltrates with R effusion, worse 68M h/o HTN, DM, HLD, PAD s/p femoral stent, prior smoker, R sided lung ca s/p partial resection p/w shortness of breath Shortness of breath, PNA, acute diastolic CHF exacerbation: - likely multifactorial - h/o lung ca s/p resection, findings concerning for PNA - abx, nebs per primary, pulm - elevated BNP with congestion on CXR, likely component of HF - nl EF in 2016 - echo nl LV function - Started on HD BRET on CKD: started on HD yesterday -likely component of cardiorenal syndrome -Planned for HD today as per renal note HTN - holding home diuretic, valsartan - bp reasonable at present - cont current meds HLD: - cont statin PAD: - cont statin, aspirin
[2018-09-28] MEDS: LABETALOL HCL 200 MG TABLET (FP) PO SCH ×2 (10:15→22:27)
[2018-09-28] MEDS: CALCIUM ACETATE 667 MG CAPSULE (FP) PO SCH ×3 (10:19→17:13)
--- NOTE | 2018-09-28 10:57 | PN ---
Teaching Attending Note Name of Resident: Skip Day ATTENDING PHYSICIAN STATEMENT I saw and evaluated the patient. I reviewed the resident's note and discussed the case with the resident. I agree with the resident's findings and plan as documented. SUBJECTIVE: Patient seen and examined in the ICU. Awake and alert. Breathing feels better on HFOT, but still mildly tachypneic. HFOT: 60L & 90% FiO2 No CP. D/W renal: plan for HD again today Intake & Output 09/25/18 09/26/18 09/27/18 09/28/18 23:59 23:59 23:59 23:59 Intake Total 790 690 780 220 Output Total 1050 2500 1500 1450 Balance -260 -1810 -720 -1230 Weight 199 lb 6.4 oz 202 lb 13.204 oz 200 lb 2.876 oz 197 lb 15.602 oz Last Vital Signs Temp Pulse Resp BP Pulse Ox 97.8 F 63 16 172/68 H 96 09/28/18 06:00 09/28/18 10:00 09/28/18 10:00 09/28/18 10:00 09/28/18 10:00 Active Medications Albumin Human (Albumin Human 25%) 12.5 gm IVPB Q30M [facility] Stop: 09/28/18 09:16 Artificial Tears (Artificial Tears) 2 drop OU Q8H PRN PRN Reason: DRY EYES Atorvastatin Calcium (Lipitor -) 20 mg PO HS [facility] Last Admin: 09/27/18 21:20 Dose: 20 mg Calcium Acetate (Phoslo -) 667 mg PO TIDCM [facility] Last Admin: 09/28/18 10:19 Dose: 667 mg Piperacillin Sod/Tazobactam (Sod 2.25 gm/ Dextrose) 50 mls @ 100 mls/hr IVPB Q8H-IV [facility]; Protocol Last Admin: 09/28/18 10:15 Dose: 100 mls/hr Sodium Chloride (Normal Saline -) 250 mls @ 3,000 mls/hr IV PRN PRN PRN Reason: Hypotension during Dialysis Stop: 09/28/18 12:29 Sodium Chloride (Normal Saline -) 250 mls @ 3,000 mls/hr IV PRN PRN PRN Reason: Hypotension during Dialysis Stop: 09/29/18 07:36 Insulin Aspart (Novolog Vial Sliding Scale -) 1 vial SQ ACHS [facility]; Protocol Last Admin: 09/28/18 06:18 Dose: 3 units Insulin Detemir (Levemir Vial) 10 units SQ HS [facility] Last Admin: 09/27/18 21:40 Dose: 10 unit Labetalol HCl (Normodyne -) 400 mg PO BID [facility] Last Admin: 09/28/18 10:15 Dose: 400 mg Methadone HCl 40 mg/ Methadone (HCl 20 mg) 60 mg PO DAILY@0600 [facility] Last Admin: 09/28/18 06:17 Dose: 60 mg Methylprednisolone Sodium Succinate (Solu-Medrol -) 40 mg IVPUSH Q6H-IV [facility] Last Admin: 09/28/18 10:15 Dose: 40 mg Sodium Chloride ([place] Nasal [place] -) 2 spray NS Q8H PRN PRN Reason: NASAL CONGESTION Last Admin: 09/23/18 22:20 Dose: 2 spray Constitutional: Yes: Awake and alert, Mildly tachypneic Eyes: Yes: WNL HENT: Yes: WNL Neck: Yes: WNL Cardiovascular: Yes: Regular Rate and Rhythm, S1, S2 Respiratory: Yes: Rales & Rhonchi Gastrointestinal: Yes: Normal Bowel Sounds, Soft Extremities: Yes: WNL Edema: Yes Labs: Laboratory Results - last 24 hr 09/27/18 09/27/18 09/27/18 12:17 15:20 17:29 WBC RBC Hgb Hct MCV MCH MCHC RDW Plt Count MPV Sodium Potassium Chloride Carbon Dioxide Anion Gap BUN Creatinine Est GFR (CKD-EPI)AfAm Est GFR (CKD-EPI)NonAf POC Glucometer 216 169 Random Glucose Calcium Total Bilirubin AST ALT Alkaline Phosphatase Total Protein Albumin Random Vancomycin HIV 1&2 Antibody Screen Negative HIV P24 Antigen Negative 09/27/18 09/28/18 09/28/18 21:38 05:45 05:45 WBC 22.5 H RBC 2.80 L Hgb 8.0 L Hct 24.0 L MCV 85.6 MCH 28.6 MCHC 33.4 RDW 14.5 Plt Count 311 MPV 8.4 Sodium Potassium Chloride Carbon Dioxide Anion Gap BUN Creatinine Est GFR (CKD-EPI)AfAm Est GFR (CKD-EPI)NonAf POC Glucometer 321 Random Glucose Calcium Total Bilirubin AST ALT Alkaline Phosphatase Total Protein Albumin Random Vancomycin 7.5 L HIV 1&2 Antibody Screen HIV P24 Antigen 09/28/18 09/28/18 05:45 05:59 WBC RBC Hgb Hct MCV MCH MCHC RDW Plt Count MPV Sodium 137 Potassium 3.4 L Chloride 95 L Carbon Dioxide 28 Anion Gap 14 BUN 134.9 H* Creatinine 3.6 H Est GFR (CKD-EPI)AfAm 18.70 Est GFR (CKD-EPI)NonAf 16.14 POC Glucometer 181 Random Glucose 202 H Calcium 8.1 L Total Bilirubin 0.4 AST 30 ALT 24 Alkaline Phosphatase 190 H Total Protein 5.6 L Albumin 1.7 L Random Vancomycin HIV 1&2 Antibody Screen HIV P24 Antigen Problem List - Problems (1) [id number] kidney injury Code(s): N17.9 - ACUTE KIDNEY FAILURE, UNSPECIFIED; N18.9 - CHRONIC KIDNEY DISEASE, UNSPECIFIED (2) CHF exacerbation Code(s): I50.9 - HEART FAILURE, UNSPECIFIED (3) Chronic renal insufficiency, stage III (moderate) Code(s): N18.3 - CHRONIC KIDNEY DISEASE, STAGE 3 (MODERATE) (4) Diabetes Code(s): E11.9 - TYPE 2 DIABETES MELLITUS WITHOUT COMPLICATIONS (5) History of lung cancer Code(s): Z85.118 - PERSONAL HISTORY OF MALIGNANT NEOPLASM OF BRONCHUS AND LUNG (6) Normocytic anemia Code(s): D64.9 - ANEMIA, UNSPECIFIED (7) Dyspnea Code(s): R06.00 - DYSPNEA, UNSPECIFIED Assessment/Plan IMP DYSPNEA ACUTE HYPOXEMIC RESPIRATORY FAILURE BILATERAL INFILTRATES ACUTE ON CHRONIC CHF PNEUMONIA ACUTE ON CHRONIC KIDNEY INJURY ANEMIA HTN DM H/O LUNG CA S/P RESECTION 1984 (?) ILD PLAN PLAN FOR HD TODAY O2 ABX PER ID F/U CHEST X-RAYS MONITOR LYTES,RENAL FUNCTION MONITOR CBC DAILY WT STRICT I+Os REQUIRES ICU MONITORING FOR HFOT AND TENUOUS STATUS Dr Deshpande Critical care time spent in reviewing chart, evaluating patient and formulating plan - 36 minutes.
--- NOTE | 2018-09-28 11:55 | PN ---
Progress Note (short form) - Note Progress Note: Renal follow up for BRET Pt seen and examined in the ICU awake and alert on high flow O2 feels better no chest pain, abd pain, fever or chills Vital Signs Temperature 97.8 F 09/28/18 06:00 Pulse Rate 63 09/28/18 10:00 Respiratory Rate 16 09/28/18 10:00 Blood Pressure 172/68 H 09/28/18 10:00 O2 Sat by Pulse Oximetry (%) 96 09/28/18 10:00 Intake & Output 09/25/18 09/26/18 09/27/18 09/28/18 23:59 23:59 23:59 23:59 Intake Total 790 690 780 220 Output Total 1050 2500 1500 1450 Balance -260 -1810 -720 -1230 Weight 90.446 kg 92 kg 90.8 kg 89.8 kg NAD RRR, no M/R course BS soft, obese NT/ND + edema in LE CBC, BMP 09/28/18 05:45 09/28/18 05:45 Current Medications Albumin Human (Albumin Human 25%) 12.5 gm IVPB Q30M [facility] Stop: 09/28/18 09:16 Artificial Tears (Artificial Tears) 2 drop OU Q8H PRN PRN Reason: DRY EYES Atorvastatin Calcium (Lipitor -) 20 mg PO HS [facility] Last Admin: 09/27/18 21:20 Dose: 20 mg Calcium Acetate (Phoslo -) 667 mg PO TIDCM [facility] Last Admin: 09/28/18 10:19 Dose: 667 mg Piperacillin Sod/Tazobactam (Sod 2.25 gm/ Dextrose) 50 mls @ 100 mls/hr IVPB Q8H-IV [facility]; Protocol Last Admin: 09/28/18 10:15 Dose: 100 mls/hr Sodium Chloride (Normal Saline -) 250 mls @ 3,000 mls/hr IV PRN PRN PRN Reason: Hypotension during Dialysis Stop: 09/28/18 12:29 Sodium Chloride (Normal Saline -) 250 mls @ 3,000 mls/hr IV PRN PRN PRN Reason: Hypotension during Dialysis Stop: 09/29/18 07:36 Insulin Aspart (Novolog Vial Sliding Scale -) 1 vial SQ ACHS [facility]; Protocol Last Admin: 09/28/18 11:38 Dose: Not Given Insulin Detemir (Levemir Vial) 10 units SQ HS [facility] Last Admin: 09/27/18 21:40 Dose: 10 unit Labetalol HCl (Normodyne -) 400 mg PO BID [facility] Last Admin: 09/28/18 10:15 Dose: 400 mg Methadone HCl 40 mg/ Methadone (HCl 20 mg) 60 mg PO DAILY@0600 [facility] Last Admin: 09/28/18 06:17 Dose: 60 mg Methylprednisolone Sodium Succinate (Solu-Medrol -) 40 mg IVPUSH Q6H-IV [facility] Last Admin: 09/28/18 10:15 Dose: 40 mg Sodium Chloride ([place] Nasal [place] -) 2 spray NS Q8H PRN PRN Reason: NASAL CONGESTION Last Admin: 09/23/18 22:20 Dose: 2 spray CXR- left perihilar infiltrate, large right effusion with infiltrate ECHO- normal LV/RV function, trace MR 68 year old gentleman with hx of of hypertension, DM on insulin, PVD s/ p Le stents, BPH, Hx of Lung cancer s/p resection who presented with SOB and noted to have BUN/Cr of 79/3.2. #Acute shortness of breath form diastolic HF + PNA #Peripheral edema #Acute on chronic renal insufficiency #Anemia #Hypertension #BPH for second dialysis today, will plan 2 hours HD, 1 hour UF will discontinue Lasix gtt, and monitor urine output UPCR is 3.2, CHICHI negative, ANCA is negative Urine Legionella Ag negative CT of the chest consistent with PNA Renal imgaing showed no obstruction but did show lesion on spleen, would need CT with contrast to evalulate but should wait until renal function is improved Trend daily weights continue labetalol Discontinue Cardura and amlodipine (can cause peripheral edema as medication side effect) Trend BP with HD with HD Dariusz Iniguez DO
--- NOTE | 2018-09-28 14:06 | PN ---
Progress Note (short form) - Note Progress Note: pt seen/ examined in icu. chart reviewed all f/u noted/ appreciated feels better Dilalized yesterday and going to be today again Vital Signs Temp 97.5 F L 09/28/18 10:00 Pulse 62 09/28/18 12:00 Resp 16 09/28/18 12:00 BP 163/63 09/28/18 12:00 Pulse Ox 96 09/28/18 10:00 Intake & Output 09/27/18 09/28/18 09/28/18 23:59 11:59 23:59 Intake Total 510 220 Output Total 800 1450 Balance -290 -1230 Weight 197 lb 15.602 oz Intake: IV 10 120 Lasix Injection - 100 mg 120 In D5w - 90 ml @ 10 MG/HR 10 mls/hr IVPB TITR [facility] Rx#:[id number] Sl hand 10 IVPB 100 Oral 500 Output: Urine 800 1450 Quinones 800 1450 Other: Voiding Method Indwelling Catheter Indwelling Catheter Bowel Movement No Body Mass Index (BMI) 34.3 Weight Measurement Method Built in [facility] Active Medications Albumin Human (Albumin Human 25%) 12.5 gm IVPB Q30M [facility] Stop: 09/28/18 09:16 Artificial Tears (Artificial Tears) 2 drop OU Q8H PRN PRN Reason: DRY EYES Atorvastatin Calcium (Lipitor -) 20 mg PO HS [facility] Last Admin: 09/27/18 21:20 Dose: 20 mg Calcium Acetate (Phoslo -) 667 mg PO TIDCM [facility] Last Admin: 09/28/18 12:29 Dose: 667 mg Piperacillin Sod/Tazobactam (Sod 2.25 gm/ Dextrose) 50 mls @ 100 mls/hr IVPB Q8H-IV [facility]; Protocol Last Admin: 09/28/18 10:15 Dose: 100 mls/hr Sodium Chloride (Normal Saline -) 250 mls @ 3,000 mls/hr IV PRN PRN PRN Reason: Hypotension during Dialysis Stop: 09/29/18 07:36 Sodium Chloride (Normal Saline -) 250 mls @ 3,000 mls/hr IV PRN PRN PRN Reason: Hypotension during Dialysis Stop: 09/29/18 11:55 Insulin Aspart (Novolog Vial Sliding Scale -) 1 vial SQ ACHS [facility]; Protocol Last Admin: 09/28/18 11:38 Dose: Not Given Insulin Detemir (Levemir Vial) 10 units SQ HS [facility] Last Admin: 09/27/18 21:40 Dose: 10 unit Labetalol HCl (Normodyne -) 400 mg PO BID [facility] Last Admin: 09/28/18 10:15 Dose: 400 mg Methadone HCl 40 mg/ Methadone (HCl 20 mg) 60 mg PO DAILY@0600 [facility] Last Admin: 09/28/18 06:17 Dose: 60 mg Methylprednisolone Sodium Succinate (Solu-Medrol -) 40 mg IVPUSH Q6H-IV [facility] Last Admin: 09/28/18 10:15 Dose: 40 mg Sodium Chloride ([place] Nasal [place] -) 2 spray NS Q8H PRN PRN Reason: NASAL CONGESTION Last Admin: 09/23/18 22:20 Dose: 2 spray CBC, BMP 09/28/18 05:45 09/28/18 05:45 Microbiology 09/26/18 12:35 Blood Culture - Preliminary Blood - Peripheral Venous NO GROWTH OBTAINED AFTER 48 HOURS, INCUBATION TO CONTINUE FOR 3 DAYS. 09/26/18 12:40 Blood Culture - Preliminary Blood - Peripheral Venous NO GROWTH OBTAINED AFTER 48 HOURS, INCUBATION TO CONTINUE FOR 3 DAYS. Physical Exam On high Flow Oxygen S1 s2 RRR Lungs decreased abd- soft, NT Neck-- catheter + PLAN CHF/ arf on ckd/ pleural effusion volume overlaod-- continue present care plavix on hold [place] thoracocentesis next week has splenic lesion-- can not do contrast imaging due to decreased renal function . Overall condition remains gaurded will follow discussed with cc team/ nursing staff cc time 35 min Problem List - Problems (1) Pneumonia Code(s): J18.9 - PNEUMONIA, UNSPECIFIED ORGANISM (2) Acute and chronic respiratory failure Code(s): J96.20 - ACUTE AND CHR RESP FAILURE, UNSP W HYPOXIA OR HYPERCAPNIA (3) CHF exacerbation Code(s): I50.9 - HEART FAILURE, UNSPECIFIED (4) History of lung cancer Code(s): Z85.118 - PERSONAL HISTORY OF MALIGNANT NEOPLASM OF BRONCHUS AND LUNG (5) Diabetes Code(s): E11.9 - TYPE 2 DIABETES MELLITUS WITHOUT COMPLICATIONS (6) Chronic renal insufficiency, stage III (moderate) Code(s): N18.3 - CHRONIC KIDNEY DISEASE, STAGE 3 (MODERATE)
--- NOTE | 2018-09-28 14:57 | PN ---
Physical Exam: SUBJECTIVE: Patient seen and examined at bedside Pt sitting up in bed, states he feels much better today being on high flow NC, saturating 85-95 % on 60L and 80% Fio2. No overnight events OBJECTIVE: Vital Signs Period Temp Pulse Resp BP Sys/Bansal Pulse Ox Last 24 Hr 97.5 F-98.2 F 62-79 13-20 146-183/54-85 94-96 GENERAL: The patient is awake, alert, and fully oriented, in no acute distress. HEAD: Normal with no signs of trauma. EYES: PERRL, extraocular movements intact, sclera anicteric, conjunctiva clear. No ptosis. ENT: Ears normal, nares patent, oropharynx clear without exudates, moist mucous membranes. NECK: Trachea midline, full range of motion, supple. LUNGS: Breath sounds equal, clear to auscultation bilaterally, no wheezes, no crackles, no accessory muscle use. On high flow HEART: Regular rate and rhythm, S1, S2 without murmur, rub or gallop. ABDOMEN: Soft, nontender, nondistended, normoactive bowel sounds, no guarding, no rebound, no hepatosplenomegaly, no masses. EXTREMITIES: 2+ pulses, warm, well-perfused, no edema. NEUROLOGICAL: Cranial nerves II through XII grossly intact. Normal speech, gait not observed. PSYCH: Normal mood, normal affect. SKIN: Warm, dry, normal turgor, no rashes or lesions noted Laboratory Results - last 24 hr 09/27/18 09/27/18 09/27/18 15:20 17:29 21:38 WBC RBC Hgb Hct MCV MCH MCHC RDW Plt Count MPV Sodium Potassium Chloride Carbon Dioxide Anion Gap BUN Creatinine Est GFR (CKD-EPI)AfAm Est GFR (CKD-EPI)NonAf POC Glucometer 169 321 Random Glucose Calcium Total Bilirubin AST ALT Alkaline Phosphatase Total Protein Albumin Random Vancomycin HIV 1&2 Antibody Screen Negative HIV P24 Antigen Negative 09/28/18 09/28/18 09/28/18 05:45 05:45 05:45 WBC 22.5 H RBC 2.80 L Hgb 8.0 L Hct 24.0 L MCV 85.6 MCH 28.6 MCHC 33.4 RDW 14.5 Plt Count 311 MPV 8.4 Sodium 137 Potassium 3.4 L Chloride 95 L Carbon Dioxide 28 Anion Gap 14 BUN 134.9 H* Creatinine 3.6 H Est GFR (CKD-EPI)AfAm 18.70 Est GFR (CKD-EPI)NonAf 16.14 POC Glucometer Random Glucose 202 H Calcium 8.1 L Total Bilirubin 0.4 AST 30 ALT 24 Alkaline Phosphatase 190 H Total Protein 5.6 L Albumin 1.7 L Random Vancomycin 7.5 L HIV 1&2 Antibody Screen HIV P24 Antigen 09/28/18 09/28/18 05:59 11:37 WBC RBC Hgb Hct MCV MCH MCHC RDW Plt Count MPV Sodium Potassium Chloride Carbon Dioxide Anion Gap BUN Creatinine Est GFR (CKD-EPI)AfAm Est GFR (CKD-EPI)NonAf POC Glucometer 181 148 Random Glucose Calcium Total Bilirubin AST ALT Alkaline Phosphatase Total Protein Albumin Random Vancomycin HIV 1&2 Antibody Screen HIV P24 Antigen Active Medications Generic Name Dose Route Start Last Admin Trade Name Freq PRN Reason Stop Dose Admin Albumin Human 12.5 gm 09/28/18 07:45 Albumin Human 25% IVPB 09/28/18 09:16 Q30M [facility] Artificial Tears 2 drop 09/20/18 16:13 Artificial Tears OU Q8H PRN DRY EYES Atorvastatin Calcium 20 mg 09/17/18 22:00 09/27/18 21:20 Lipitor - PO 20 mg HS [facility] Administration Calcium Acetate 667 mg 09/25/18 17:30 09/28/18 12:29 Phoslo - PO 667 mg TIDCM [facility] Administration Piperacillin Sod/Tazobactam 50 mls @ 100 mls/hr 09/26/18 13:45 09/28/18 10:15 Sod 2.25 gm/ Dextrose IVPB 100 mls/hr Q8H-IV [facility] Administration Protocol Sodium Chloride 250 mls @ 3,000 mls/hr 09/28/18 07:36 Normal Saline - IV 09/29/18 07:36 PRN PRN Hypotension during Dialysis Sodium Chloride 250 mls @ 3,000 mls/hr 09/28/18 11:55 Normal Saline - IV 09/29/18 11:55 PRN PRN Hypotension during Dialysis Insulin Aspart 1 vial 09/17/18 16:30 09/28/18 11:38 Novolog Vial Sliding Scale - SQ Not Given ACHS [facility] Protocol Insulin Detemir 10 units 09/17/18 22:00 09/27/18 21:40 Levemir Vial SQ 10 unit HS [facility] Administration Labetalol HCl 400 mg 09/19/18 10:40 09/28/18 10:15 Normodyne - PO 400 mg BID [facility] Administration Methadone HCl 40 mg/ Methadone 60 mg 09/27/18 06:30 09/28/18 06:17 HCl 20 mg PO 60 mg DAILY@0600 [facility] Administration Methylprednisolone Sodium Succinate 40 mg 09/26/18 15:00 09/28/18 10:15 Solu-Medrol - IVPUSH 40 mg Q6H-IV [facility] Administration Sodium Chloride 2 spray 09/23/18 15:50 09/23/18 22:20 [place] Nasal [place] - NS 2 spray Q8H PRN Administration NASAL CONGESTION ASSESSMENT/PLAN: 68 year old male with a past medical history of hypertension, insulin dependent diabetes, hyperlipidemia, NPH, UTI and R sided lung CA s/p resection many years ago (benign according to daughter) was brought to the hospital for shortness of breath and admitted for treatment of acute hypoxic respiratory failure 2/2 CHF exacerbation and pneumonia Considering autoimmune path at this time, rheum markers neg, pending anti histone antibody and Hep panel HIV neg Continue to wean off of high flow BUN and CR show mild improvement after HD Cardiovascular -patient is being treated for diastolic CHF exacerbation -monitor daily weights/I's/O's -Discontinue lasix drip as per nephro -does not appear that this is helping resolve patient's overloaded status, may need dialysis -echo EF 65, RV pressure 32, no significant abnormalities -discontinue hydralazine for possible drug induced lupus -cardiology following Pulmonary - ICU and monitor on high flow, on 60lpm 80% Fio2 -treating for possible bilateral pneumonia -solumedrol 40q6h on zosyn -ID consultation -CXR in AM -duonebs Renal -patient has azotemia and worsening of his chronic kidney disease -HD started yesterday, will continue today and tmr as per nephro -repeat BMP in AM -renal following FEN -no standing fluids -replete lytes as necessary in AM Disposition -monitor in ICU MP DYSPNEA ACUTE HYPOXEMIC RESPIRATORY FAILURE BILATERAL INFILTRATES ACUTE ON CHRONIC CHF PNEUMONIA ACUTE ON CHRONIC KIDNEY INJURY ANEMIA HTN DM H/O LUNG CA S/P RESECTION 1984 (?) ILD PLAN PLAN FOR HD TODAY O2 ABX PER ID F/U CHEST X-RAYS MONITOR LYTES,RENAL FUNCTION MONITOR CBC DAILY WT STRICT I+Os REQUIRES ICU MONITORING FOR HFOT AND TENUOUS STATUS Visit type - Emergency Visit Emergency Visit: No - New Patient This patient is new to me today: No - Critical Care Critical Care patient: Yes Total Critical Care Time (in minutes): 40 Critical Care Statement: The care of this patient involved high complexity decision making to prevent further life threatening deterioration of the patient 's condition and/or to evaluate & treat vital organ system(s) failure or risk of failure.
[2018-09-28] MEDS: ALBUMIN HUMAN 25% 12.5 GM/50 ML VIAL IVPB SCH ×2 (16:20→17:17)
[2018-09-28] MEDS: INSULIN (LEVEMIR) 100 UNITS/ML UNITS SQ SCH (22:26)
[2018-09-28] MEDS: ATORVASTATIN CA 20 MG TABLET (FP) PO SCH (22:27)
[2018-09-29] MEDS ORDERED: LABETALOL HCL 200 MG TABLET (FP) PO ONE (00:11)
[2018-09-29] MEDS ORDERED: RANITIDINE HCL 150 MG TABLET (FP) PO ONE (01:52)
[2018-09-29] MEDS ORDERED: METOCLOPRAMIDE HCL INJECTION 10 MG/2 ML VIAL IVPUSH ONE (01:53)
[2018-09-29] MEDS ORDERED: DEXTROSE 5%-WATER - 50 ML IVPB ONE ×3 (02:11→17:19)
[2018-09-29] MEDS ORDERED: PIPERACILLIN/TAZOBACTAM 2.25 GM VIAL IVPB ONE ×3 (02:11→17:19)
[2018-09-29] MEDS: PIPERACILLIN/TAZOB 2.25 GM 2.25 GM in DEXTROSE 5%-WATER - 50 ML IVPB SCH ×3 (02:18→17:29)
[2018-09-29] MEDS: methylPREDNISolone NA SUCC 40 MG/1 ML VIAL IVPUSH SCH ×4 (02:20→21:26)
[2018-09-29] MEDS ORDERED: METHADONE HCL 40 MG DISPERSABLE TABLET ONE (06:01)
[2018-09-29] MEDS ORDERED: METHADONE HCL 10 MG TABLET ONE (06:01)
[2018-09-29] MEDS: METHADONE 40 MG, METHADONE 20 MG PO SCH (06:11)
[2018-09-29] MEDS: INSULIN SLIDING SCALE (NOVOLOG) 1 VIAL SQ SCH ×4 (06:15→21:31)
--- NOTE | 2018-09-29 07:52 | PN ---
Progress Note, Physician Chief Complaint: receiving HD No distress No CP, some "heartburn " last night now resolved TELE: NSR - Current Medication List Current Medications: Active Medications Artificial Tears (Artificial Tears) 2 drop OU Q8H PRN PRN Reason: DRY EYES Atorvastatin Calcium (Lipitor -) 20 mg PO HS [facility] Last Admin: 09/28/18 22:27 Dose: 20 mg Calcium Acetate (Phoslo -) 667 mg PO TIDCM [facility] Last Admin: 09/28/18 17:13 Dose: 667 mg Piperacillin Sod/Tazobactam (Sod 2.25 gm/ Dextrose) 50 mls @ 100 mls/hr IVPB Q8H-IV [facility]; Protocol Last Admin: 09/29/18 02:18 Dose: 100 mls/hr Sodium Chloride (Normal Saline -) 250 mls @ 3,000 mls/hr IV PRN PRN PRN Reason: Hypotension during Dialysis Stop: 09/29/18 11:55 Insulin Aspart (Novolog Vial Sliding Scale -) 1 vial SQ [facility]; Protocol Last Admin: 09/29/18 06:15 Dose: 3 units Insulin Detemir (Levemir Vial) 10 units SQ [facility] Last Admin: 09/28/18 22:26 Dose: 10 unit Labetalol HCl (Normodyne -) 400 mg PO BID [facility] Last Admin: 09/28/18 22:27 Dose: 400 mg Methadone HCl 40 mg/ Methadone (HCl 20 mg) 60 mg PO DAILY@0600 [facility] Last Admin: 09/29/18 06:11 Dose: 60 mg Methylprednisolone Sodium Succinate (Solu-Medrol -) 40 mg IVPUSH Q6H-IV [facility] Last Admin: 09/29/18 02:20 Dose: 40 mg Sodium Chloride ([place] Nasal [place] -) 2 spray NS Q8H PRN PRN Reason: NASAL CONGESTION Last Admin: 09/23/18 22:20 Dose: 2 spray - Objective Vital Signs: Vital Signs Temperature 98.1 F 09/29/18 06:00 Pulse Rate 109 H 09/29/18 06:00 Respiratory Rate 09/29/18 06:00 Blood Pressure 103/52 L 09/29/18 06:00 O2 Sat by Pulse Oximetry (%) 94 L 09/28/18 21:00 Constitutional: Yes: No Distress Cardiovascular: Yes: Regular Rate and Rhythm Respiratory: Yes: CTA Bilaterally Gastrointestinal: Yes: Soft Edema: No Neurological: Yes: Alert, Oriented ...Motor Strength: WNL Labs: CBC, BMP 09/28/18 05:45 09/28/18 05:45 INR, PTT INR 1.11 (0.83-1.09) H 09/17/18 12:23 Laboratory Tests 09/28/18 05:45 WBC 22.5 H Hgb 8.0 L Plt Count 311 - ....Imaging EKG: Image Reviewed Assessment/Plan Assessment/Plan mibi 2015 no ischemia, nl EF EKG: sinus, PVC, no ischemic changes echo 09/2018 nl LV function, mild MAC, tr MR, tr AR, RVSP 32 mmHg CXR: extensive bilat infiltrates with R effusion, worse 68M h/o HTN, DM, HLD, PAD s/p femoral stent, prior smoker, R sided lung ca s/p partial resection p/w shortness of breath Shortness of breath, PNA, acute diastolic CHF exacerbation: - likely multifactorial - h/o lung ca s/p resection, findings concerning for PNA - abx, nebs per primary, pulm - elevated BNP with congestion on CXR, likely component of HF - nl EF in 2016 - echo nl LV function - HD again today. BRET on CKD: started on HD. Receiving again today. -likely component of cardiorenal syndrome HTN - holding home diuretic, valsartan - bp stable - cont current meds HLD: - cont statin PAD: - cont statin, aspirin
[2018-09-29] MEDS: CALCIUM ACETATE 667 MG CAPSULE (FP) PO SCH ×3 (08:22→16:52)
--- NOTE | 2018-09-29 08:35 | PN ---
Progress Note (short form) - Note Progress Note: Renal follow up for BRET Pt seen and examined in the ICU awake and alert on high flow O2 feels much better currently on dialysis via IJ catheter BP stable, goal UF is 3-3.5L Vital Signs Temperature 98.4 F 09/29/18 07:25 Pulse Rate 68 09/29/18 08:00 Respiratory Rate 15 09/29/18 08:00 Blood Pressure 157/80 09/29/18 08:00 O2 Sat by Pulse Oximetry (%) 94 L 09/28/18 21:00 Intake & Output 09/26/18 09/27/18 09/28/18 09/29/18 23:59 23:59 23:59 23:59 Intake Total 690 780 220 80 Output Total 2500 1500 2250 650 Balance -1810 -720 -2030 -570 Weight 92 kg 90.8 kg 89.8 kg 87.1 kg NAD RRR, no M/R BS improved soft, obese NT/ND no edema in LE todays labs pending Current Medications Artificial Tears (Artificial Tears) 2 drop OU Q8H PRN PRN Reason: DRY EYES Atorvastatin Calcium (Lipitor -) 20 mg PO HS [facility] Last Admin: 09/28/18 22:27 Dose: 20 mg Calcium Acetate (Phoslo -) 667 mg PO TIDCM [facility] Last Admin: 09/29/18 08:22 Dose: 667 mg Piperacillin Sod/Tazobactam (Sod 2.25 gm/ Dextrose) 50 mls @ 100 mls/hr IVPB Q8H-IV [facility]; Protocol Last Admin: 09/29/18 02:18 Dose: 100 mls/hr Sodium Chloride (Normal Saline -) 250 mls @ 3,000 mls/hr IV PRN PRN PRN Reason: Hypotension during Dialysis Stop: 09/29/18 11:55 Insulin Aspart (Novolog Vial Sliding Scale -) 1 vial SQ [facility]; Protocol Last Admin: 09/29/18 06:15 Dose: 3 units Insulin Detemir (Levemir Vial) 10 units SQ HS [facility] Last Admin: 09/28/18 22:26 Dose: 10 unit Labetalol HCl (Normodyne -) 400 mg PO BID [facility] Last Admin: 09/28/18 22:27 Dose: 400 mg Methadone HCl 40 mg/ Methadone (HCl 20 mg) 60 mg PO DAILY@0600 [facility] Last Admin: 09/29/18 06:11 Dose: 60 mg Methylprednisolone Sodium Succinate (Solu-Medrol -) 40 mg IVPUSH Q6H-IV [facility] Last Admin: 09/29/18 08:22 Dose: 40 mg Sodium Chloride ([place] Nasal [place] -) 2 spray NS Q8H PRN PRN Reason: NASAL CONGESTION Last Admin: 09/23/18 22:20 Dose: 2 spray CXR- left perihilar infiltrate, large right effusion with infiltrate ECHO- normal LV/RV function, trace MR 68 year old gentleman with hx of of hypertension, DM on insulin, PVD s/ p Le stents, BPH, Hx of Lung cancer s/p resection who presented with SOB and noted to have BUN/Cr of 79/3.2. #Acute shortness of breath form diastolic HF + PNA #Peripheral edema #Acute on chronic renal insufficiency #Anemia #Hypertension #BPH tolerating dialysis today, will UF as tolerated can remove dialysis catheter after treatment today hold diuretics, can consider restarting tomorrow UPCR is 3.2, CHICHI negative, ANCA is negative Urine Legionella Ag negative CT of the chest consistent with PNA Renal imgaing showed no obstruction but did show lesion on spleen, would need CT with contrast to evalulate but should wait until renal function is improved Trend daily weights continue labetalol Discontinue Cardura and amlodipine (can cause peripheral edema as medication side effect) Trend BP with HD with HD Dariusz Iniguez DO
[2018-09-29 08:37] LABS: HEMATOCRIT 24.4 % (35.4-49); HEMOGLOBIN 8.1 GM/dL (11.7-16.9); MCH 28.5 pg (25.7-33.7); MCHC 33.1 g/dl (32.0-35.9); MEAN CELL VOLUME 86.2 fl (80-96); MEAN PLT VOLUME 8.3 fl (7.5-11.1); PLATELET COUNT 278 K/MM3 (134-434); RBC 2.83 M/mm3 (4.00-5.60); RDW 14.5 % (11.9-15.9); WHITE BLOOD COUNT 19.5 K/mm3 (4.0-10.0)
--- NOTE | 2018-09-29 09:05 | PN ---
Progress Note, Physician History of Present Illness: AWAKE, ALERT RECEIVING HEMODIALYSIS COMPLAINS OF DYSPEPSIA DENIES DYSPNEA BREATHING NON LABORED ON HIGH FLOW O2 AFEBRILE WBC ELEVATED BC (-) - Current Medication List Current Medications: Active Medications Artificial Tears (Artificial Tears) 2 drop OU Q8H PRN PRN Reason: DRY EYES Atorvastatin Calcium (Lipitor -) 20 mg PO HS [facility] Last Admin: 09/28/18 22:27 Dose: 20 mg Calcium Acetate (Phoslo -) 667 mg PO TIDCM [facility] Last Admin: 09/29/18 08:22 Dose: 667 mg Piperacillin Sod/Tazobactam (Sod 2.25 gm/ Dextrose) 50 mls @ 100 mls/hr IVPB Q8H-IV [facility]; Protocol Last Admin: 09/29/18 02:18 Dose: 100 mls/hr Sodium Chloride (Normal Saline -) 250 mls @ 3,000 mls/hr IV PRN PRN PRN Reason: Hypotension during Dialysis Stop: 09/29/18 11:55 Insulin Aspart (Novolog Vial Sliding Scale -) 1 vial SQ [facility]; Protocol Last Admin: 09/29/18 06:15 Dose: 3 units Insulin Detemir (Levemir Vial) 10 units SQ [facility] Last Admin: 09/28/18 22:26 Dose: 10 unit Labetalol HCl (Normodyne -) 400 mg PO BID [facility] Last Admin: 09/28/18 22:27 Dose: 400 mg Methadone HCl 40 mg/ Methadone (HCl 20 mg) 60 mg PO DAILY@0600 [facility] Last Admin: 09/29/18 06:11 Dose: 60 mg Methylprednisolone Sodium Succinate (Solu-Medrol -) 40 mg IVPUSH Q6H-IV [facility] Last Admin: 09/29/18 08:22 Dose: 40 mg Sodium Chloride ([place] Nasal [place] -) 2 spray NS Q8H PRN PRN Reason: NASAL CONGESTION Last Admin: 09/23/18 22:20 Dose: 2 spray - Objective Vital Signs: Vital Signs Temperature 98.4 F 09/29/18 07:25 Pulse Rate 68 09/29/18 08:00 Respiratory Rate 15 09/29/18 08:00 Blood Pressure 157/80 09/29/18 08:00 O2 Sat by Pulse Oximetry (%) 94 L 09/28/18 21:00 Constitutional: Yes: No Distress Eyes: Yes: Conjunctiva Clear Cardiovascular: Yes: Regular Rate and Rhythm, S1, S2 Respiratory: Yes: Diminished Gastrointestinal: Yes: Normal Bowel Sounds, Soft. No: Tenderness Edema: Yes Edema: LLE: 1+, RLE: 1+ Labs: CBC, BMP 09/29/18 07:30 INR, PTT INR 1.11 (0.83-1.09) H 09/17/18 12:23 Assessment/Plan PNEUMONIA/ CHF RENAL FAILURE LEUKOCYTOSIS CONTINUE ZOSYN/ STEROIDS
[2018-09-29 09:12] LABS: ALBUMIN 1.8 g/dl (3.4-5.0); BILIRUBIN,TOTAL 0.3 mg/dL (0.2-1); CREATININE 3.2 mg/dL (0.55-1.3); PHOSPHOROUS 6.7 mg/dL (2.5-4.9); POTASSIUM 3.7 mmol/L (3.5-5.1); TOT PROT 5.5 g/dl (6.4-8.2)
--- NOTE | 2018-09-29 09:52 | PN ---
Progress Note (short form) - Note Progress Note: events noted pt in ICU He is on Dialysis today awake and alert on high flow O2 Vital Signs - 24 hr Vital Signs - 24 hr 09/28/18 09/28/18 09/28/18 10:00 12:00 14:00 Temperature 97.5 F L 97.6 F Pulse Rate 63 62 64 Respiratory 16 16 16 Rate Blood Pressure 172/68 H 163/63 168/58 L O2 Sat by Pulse 96 Oximetry (%) 09/28/18 09/28/18 09/28/18 14:25 14:30 15:00 Temperature 98.2 F Pulse Rate 63 63 61 Respiratory 18 18 18 Rate Blood Pressure 154/78 166/64 163/68 O2 Sat by Pulse Oximetry (%) 09/28/18 09/28/18 09/28/18 15:30 16:00 16:13 Temperature Pulse Rate 61 63 Respiratory 18 16 Rate Blood Pressure 168/61 168/58 L O2 Sat by Pulse 94 L Oximetry (%) 09/28/18 09/28/18 09/28/18 16:30 17:00 17:30 Temperature Pulse Rate 61 62 61 Respiratory 18 18 18 Rate Blood Pressure 158/65 161/65 155/66 O2 Sat by Pulse Oximetry (%) 09/28/18 09/28/18 09/28/18 17:35 18:00 20:00 Temperature 97.5 F L Pulse Rate 61 68 75 Respiratory 18 16 20 Rate Blood Pressure 157/64 162/59 L 168/72 O2 Sat by Pulse Oximetry (%) 09/28/18 09/28/18 09/29/18 21:00 22:00 00:00 Temperature Pulse Rate 76 69 Respiratory 17 15 Rate Blood Pressure 178/61 H 171/63 H O2 Sat by Pulse 94 L Oximetry (%) 09/29/18 09/29/18 09/29/18 02:00 04:00 06:00 Temperature 98.1 F Pulse Rate 69 65 109 H Respiratory 19 22 H 19 Rate Blood Pressure 173/59 H 181/68 H 103/52 L O2 Sat by Pulse Oximetry (%) 09/29/18 09/29/18 09/29/18 07:25 07:30 08:00 Temperature 98.4 F Pulse Rate 58 L 58 L 68 Respiratory 18 18 15 Rate Blood Pressure 173/66 H 178/68 H 157/80 O2 Sat by Pulse Oximetry (%) 09/29/18 09/29/18 08:30 09:00 Temperature Pulse Rate 56 L 58 L Respiratory 18 18 Rate Blood Pressure 157/80 156/62 O2 Sat by Pulse Oximetry (%) Current Medications Generic Name Dose Route Start Last Admin Trade Name Freq PRN Reason Stop Dose Admin Artificial Tears 2 drop 09/20/18 16:13 Artificial Tears OU Q8H PRN DRY EYES Atorvastatin Calcium 20 mg 09/17/18 22:00 09/28/18 22:27 Lipitor - PO 20 mg HS [facility] Administration Calcium Acetate 667 mg 09/25/18 17:30 09/29/18 08:22 Phoslo - PO 667 mg TIDCM [facility] Administration Piperacillin Sod/Tazobactam 50 mls @ 100 mls/hr 09/26/18 13:45 09/29/18 02:18 Sod 2.25 gm/ Dextrose IVPB 100 mls/hr Q8H-IV [facility] Administration Protocol Sodium Chloride 250 mls @ 3,000 mls/hr 09/28/18 11:55 Normal Saline - IV 09/29/18 11:55 PRN PRN Hypotension during Dialysis Insulin Aspart 1 vial 09/17/18 16:30 09/29/18 06:15 Novolog Vial Sliding Scale - SQ 3 units ACHS [facility] Administration Protocol Insulin Detemir 10 units 09/17/18 22:00 09/28/18 22:26 Levemir Vial SQ 10 unit HS [facility] Administration Labetalol HCl 400 mg 09/19/18 10:40 09/28/18 22:27 Normodyne - PO 400 mg BID [facility] Administration Methadone HCl 40 mg/ Methadone 60 mg 09/27/18 06:30 09/29/18 06:11 HCl 20 mg PO 60 mg DAILY@0600 [facility] Administration Methylprednisolone Sodium Succinate 40 mg 09/26/18 15:00 09/29/18 08:22 Solu-Medrol - IVPUSH 40 mg Q6H-IV [facility] Administration Sodium Chloride 2 spray 09/23/18 15:50 09/23/18 22:20 [place] Nasal [place] - NS 2 spray Q8H PRN Administration NASAL CONGESTION Laboratory Results - last 24 hr 09/28/18 09/28/18 09/29/18 11:37 21:09 06:09 WBC RBC Hgb Hct MCV MCH MCHC RDW Plt Count MPV Sodium Potassium Chloride Carbon Dioxide Anion Gap BUN Creatinine Est GFR (CKD-EPI)AfAm Est GFR (CKD-EPI)NonAf POC Glucometer 148 268 168 Random Glucose Calcium Phosphorus Total Bilirubin AST ALT Alkaline Phosphatase Total Protein Albumin 09/29/18 09/29/18 07:30 07:30 WBC 19.5 H RBC 2.83 L Hgb 8.1 L Hct 24.4 L MCV 86.2 MCH 28.5 MCHC 33.1 RDW 14.5 Plt Count 278 MPV 8.3 Sodium 138 Potassium 3.7 Chloride 96 L Carbon Dioxide 30 Anion Gap 12 BUN 121.0 H* Creatinine 3.2 H Est GFR (CKD-EPI)AfAm 21.56 Est GFR (CKD-EPI)NonAf 18.60 POC Glucometer Random Glucose 146 H Calcium 8.0 L Phosphorus 6.7 H Total Bilirubin 0.3 AST 30 ALT 24 Alkaline Phosphatase 187 H Total Protein 5.5 L Albumin 1.8 L S1 s2 RRR Lungs decreased abd- soft, NT JVD+ edema+ PLAN CHF--on HD leucocytosis-- blood cultures , ua and urine culture-- negative ID eval noted-- on Zosyn on solumedrol no diarrhea may need renal biospy per renal has splenic lesion-- can not do contrast imaging due to decreased renal function Problem List - Problems (1) BRET (acute kidney injury) Code(s): N17.9 - ACUTE KIDNEY FAILURE, UNSPECIFIED (2) Acute and chronic respiratory failure Code(s): J96.20 - ACUTE AND CHR RESP FAILURE, UNSP W HYPOXIA OR HYPERCAPNIA (3) [id number] kidney injury Code(s): N17.9 - ACUTE KIDNEY FAILURE, UNSPECIFIED; N18.9 - CHRONIC KIDNEY DISEASE, UNSPECIFIED (4) CHF exacerbation Code(s): I50.9 - HEART FAILURE, UNSPECIFIED (5) Diabetes Code(s): E11.9 - TYPE 2 DIABETES MELLITUS WITHOUT COMPLICATIONS
[2018-09-29] MEDS: LABETALOL HCL 200 MG TABLET (FP) PO SCH ×2 (09:54→21:26)
--- NOTE | 2018-09-29 10:24 | PN ---
Teaching Attending Note Name of Resident: Skip Day ATTENDING PHYSICIAN STATEMENT I saw and evaluated the patient. I reviewed the resident's note and discussed the case with the resident. I agree with the resident's findings and plan as documented. SUBJECTIVE: Patient seen and examined in the ICU. Awake and alert. Breathing feels better on HFOT, but still mildly tachypneic. HFOT: 60L & 80% FiO2 No CP. D/W renal: plan for HD again today Intake & Output 09/26/18 09/27/18 09/28/18 09/29/18 23:59 23:59 23:59 23:59 Intake Total 690 780 220 80 Output Total 2500 1500 2250 650 Balance -1810 -720 -2030 -570 Weight 202 lb 13.204 oz 200 lb 2.876 oz 197 lb 15.602 oz 192 lb 0.362 oz Last Vital Signs Temp Pulse Resp BP Pulse Ox 98.4 F 54 L 18 152/54 L 94 L 09/29/18 07:25 09/29/18 10:00 09/29/18 10:00 09/29/18 10:00 09/28/18 21:00 Active Medications Artificial Tears (Artificial Tears) 2 drop OU Q8H PRN PRN Reason: DRY EYES Atorvastatin Calcium (Lipitor -) 20 mg PO HS [facility] Last Admin: 09/28/18 22:27 Dose: 20 mg Calcium Acetate (Phoslo -) 667 mg PO TIDCM [facility] Last Admin: 09/29/18 08:22 Dose: 667 mg Piperacillin Sod/Tazobactam (Sod 2.25 gm/ Dextrose) 50 mls @ 100 mls/hr IVPB Q8H-IV [facility]; Protocol Last Admin: 09/29/18 09:54 Dose: 100 mls/hr Sodium Chloride (Normal Saline -) 250 mls @ 3,000 mls/hr IV PRN PRN PRN Reason: Hypotension during Dialysis Stop: 09/29/18 11:55 Insulin Aspart (Novolog Vial Sliding Scale -) 1 vial SQ [facility]; Protocol Last Admin: 09/29/18 06:15 Dose: 3 units Insulin Detemir (Levemir Vial) 10 units SQ HS [facility] Last Admin: 09/28/18 22:26 Dose: 10 unit Labetalol HCl (Normodyne -) 400 mg PO BID [facility] Last Admin: 09/29/18 09:54 Dose: 400 mg Methadone HCl 40 mg/ Methadone (HCl 20 mg) 60 mg PO DAILY@0600 [facility] Last Admin: 09/29/18 06:11 Dose: 60 mg Methylprednisolone Sodium Succinate (Solu-Medrol -) 40 mg IVPUSH Q6H-IV [facility] Last Admin: 09/29/18 08:22 Dose: 40 mg Sodium Chloride ([place] Nasal [place] -) 2 spray NS Q8H PRN PRN Reason: NASAL CONGESTION Last Admin: 09/23/18 22:20 Dose: 2 spray Constitutional: Yes: Awake and alert, Mildly tachypneic Eyes: Yes: WNL HENT: Yes: WNL Neck: Yes: WNL Cardiovascular: Yes: Regular Rate and Rhythm, S1, S2 Respiratory: Yes: Rales & Rhonchi Gastrointestinal: Yes: Normal Bowel Sounds, Soft Extremities: Yes: WNL Edema: Yes Labs: Laboratory Results - last 24 hr 09/28/18 09/28/18 09/29/18 11:37 21:09 06:09 WBC RBC Hgb Hct MCV MCH MCHC RDW Plt Count MPV Sodium Potassium Chloride Carbon Dioxide Anion Gap BUN Creatinine Est GFR (CKD-EPI)AfAm Est GFR (CKD-EPI)NonAf POC Glucometer 148 268 168 Random Glucose Calcium Phosphorus Total Bilirubin AST ALT Alkaline Phosphatase Total Protein Albumin 09/29/18 09/29/18 07:30 07:30 WBC 19.5 H RBC 2.83 L Hgb 8.1 L Hct 24.4 L MCV 86.2 MCH 28.5 MCHC 33.1 RDW 14.5 Plt Count 278 MPV 8.3 Sodium 138 Potassium 3.7 Chloride 96 L Carbon Dioxide 30 Anion Gap 12 BUN 121.0 H* Creatinine 3.2 H Est GFR (CKD-EPI)AfAm 21.56 Est GFR (CKD-EPI)NonAf 18.60 POC Glucometer Random Glucose 146 H Calcium 8.0 L Phosphorus 6.7 H Total Bilirubin 0.3 AST 30 ALT 24 Alkaline Phosphatase 187 H Total Protein 5.5 L Albumin 1.8 L Problem List - Problems (1) [id number] kidney injury Code(s): N17.9 - ACUTE KIDNEY FAILURE, UNSPECIFIED; N18.9 - CHRONIC KIDNEY DISEASE, UNSPECIFIED (2) CHF exacerbation Code(s): I50.9 - HEART FAILURE, UNSPECIFIED (3) Chronic renal insufficiency, stage III (moderate) Code(s): N18.3 - CHRONIC KIDNEY DISEASE, STAGE 3 (MODERATE) (4) Diabetes Code(s): E11.9 - TYPE 2 DIABETES MELLITUS WITHOUT COMPLICATIONS (5) History of lung cancer Code(s): Z85.118 - PERSONAL HISTORY OF MALIGNANT NEOPLASM OF BRONCHUS AND LUNG (6) Normocytic anemia Code(s): D64.9 - ANEMIA, UNSPECIFIED (7) Dyspnea Code(s): R06.00 - DYSPNEA, UNSPECIFIED Assessment/Plan IMP DYSPNEA ACUTE HYPOXEMIC RESPIRATORY FAILURE BILATERAL INFILTRATES ACUTE ON CHRONIC CHF PNEUMONIA ACUTE ON CHRONIC KIDNEY INJURY ANEMIA HTN DM H/O LUNG CA S/P RESECTION 1984 (?) ILD PLAN PLAN FOR HD TODAY PER RENAL O2 ABX PER ID F/U CHEST X-RAYS MONITOR LYTES,RENAL FUNCTION MONITOR CBC DAILY WT STRICT I+Os WEAN HFOT TOLERATED REQUIRES ICU MONITORING FOR HFOT AND TENUOUS STATUS Dr Deshpande Critical care time spent in reviewing chart, evaluating patient and formulating plan - 36 minutes.
[2018-09-29] MEDS: ATORVASTATIN CA 20 MG TABLET (FP) PO SCH (21:26)
[2018-09-29] MEDS: INSULIN (LEVEMIR) 100 UNITS/ML UNITS SQ SCH (21:26)
[2018-09-30] MEDS ORDERED: amLODIPine BESYLATE 10 MG TABLET (FP) PO ONE (00:07)
[2018-09-30] MEDS: RANITIDINE HCL 150 MG TABLET (FP) PO SCH ×2 (00:14→09:34)
--- NOTE | 2018-09-30 00:54 | PN ---
Physical Exam: SUBJECTIVE: Patient seen and examined at the bedside No complaints, states he feels his breathing has been improved after high flow and HD. Overnight BP noted to be elevated, given labetalol without improvement OBJECTIVE: Vital Signs Period Temp Pulse Resp BP Sys/Bansal Pulse Ox Last 24 Hr 98.1 F-98.6 F 54-109 15- 103-186/52-127 93-96 GENERAL: The patient is awake, alert, and fully oriented, in no acute distress. HEAD: Normal with no signs of trauma. EYES: PERRL, extraocular movements intact, sclera anicteric, conjunctiva clear. No ptosis. ENT: Ears normal, nares patent, oropharynx clear without exudates, moist mucous membranes. NECK: Trachea midline, full range of motion, supple. LUNGS: Breath sounds equal, clear to auscultation bilaterally, no wheezes, no crackles, no accessory muscle use. On high flow HEART: Regular rate and rhythm, S1, S2 without murmur, rub or gallop. ABDOMEN: Soft, nontender, nondistended, normoactive bowel sounds, no guarding, no rebound, no hepatosplenomegaly, no masses. EXTREMITIES: 2+ pulses, warm, well-perfused, no edema. NEUROLOGICAL: Cranial nerves II through XII grossly intact. Normal speech, gait not observed. PSYCH: Normal mood, normal affect. SKIN: Warm, dry, normal turgor, no rashes or lesions noted Laboratory Results - last 24 hr 09/29/18 09/29/18 09/29/18 06:09 07:30 07:30 WBC 19.5 H RBC 2.83 L Hgb 8.1 L Hct 24.4 L MCV 86.2 MCH 28.5 MCHC 33.1 RDW 14.5 Plt Count 278 MPV 8.3 Sodium 138 Potassium 3.7 Chloride 96 L Carbon Dioxide 30 Anion Gap 12 BUN 121.0 H* Creatinine 3.2 H Est GFR (CKD-EPI)AfAm 21.56 Est GFR (CKD-EPI)NonAf 18.60 POC Glucometer 168 Random Glucose 146 H Calcium 8.0 L Phosphorus 6.7 H Total Bilirubin 0.3 AST 30 ALT 24 Alkaline Phosphatase 187 H Total Protein 5.5 L Albumin 1.8 L 09/29/18 09/29/18 09/29/18 11:04 16:31 21:29 WBC RBC Hgb Hct MCV MCH MCHC RDW Plt Count MPV Sodium Potassium Chloride Carbon Dioxide Anion Gap BUN Creatinine Est GFR (CKD-EPI)AfAm Est GFR (CKD-EPI)NonAf POC Glucometer 95 219 316 Random Glucose Calcium Phosphorus Total Bilirubin AST ALT Alkaline Phosphatase Total Protein Albumin Active Medications Generic Name Dose Route Start Last Admin Trade Name Freq PRN Reason Stop Dose Admin Artificial Tears 2 drop 09/20/18 16:13 Artificial Tears OU Q8H PRN DRY EYES Atorvastatin Calcium 20 mg 09/17/18 22:00 09/29/18 21:26 Lipitor - PO 20 mg HS [facility] Administration Calcium Acetate 667 mg 09/25/18 17:30 09/29/18 16:52 Phoslo - PO 667 mg TIDCM [facility] Administration Piperacillin Sod/Tazobactam 50 mls @ 100 mls/hr 09/26/18 13:45 09/29/18 17:29 Sod 2.25 gm/ Dextrose IVPB 100 mls/hr Q8H-IV [facility] Administration Protocol Insulin Aspart 1 vial 09/17/18 16:30 09/29/18 21:31 Novolog Vial Sliding Scale - SQ 9 units ACHS [facility] Administration Protocol Insulin Detemir 10 units 09/17/18 22:00 09/29/18 21:26 Levemir Vial SQ 10 unit HS [facility] Administration Labetalol HCl 400 mg 09/19/18 10:40 09/29/18 21:26 Normodyne - PO 400 mg BID [facility] Administration Methadone HCl 40 mg/ Methadone 60 mg 09/27/18 06:30 09/29/18 06:11 HCl 20 mg PO 60 mg DAILY@0600 [facility] Administration Methylprednisolone Sodium Succinate 40 mg 09/26/18 15:00 09/29/18 21:26 Solu-Medrol - IVPUSH 40 mg Q6H-IV [facility] Administration Ranitidine HCl 150 mg 09/29/18 22:00 09/30/18 00:14 Zantac - PO 150 mg DAILY [facility] Administration Sodium Chloride 2 spray 09/23/18 15:50 09/23/18 22:20 [place] Nasal [place] - NS 2 spray Q8H PRN Administration NASAL CONGESTION ASSESSMENT/PLAN: Continues to require high flow to maintain saturation. Weaning down, now on 60L with Fio2 70s Pressures elevated due to stopping meds, labetolol tried last night without any improvement. Will try home does amlodipine and reassess. 68 year old male with a past medical history of hypertension, insulin dependent diabetes, hyperlipidemia, NPH, UTI and R sided lung CA s/p resection many years ago (benign according to daughter) was brought to the hospital for shortness of breath and admitted for treatment of acute hypoxic respiratory failure 2/2 CHF exacerbation and pneumonia Cardiovascular -patient is being treated for diastolic CHF exacerbation -monitor daily weights/I's/O's -on lasix ggt with moderate urine output -does not appear that this is helping resolve patient's overloaded status, may need dialysis -echo EF 65, RV pressure 32, no significant abnormalities -continue antihypertensives as prescribed -cardiology following Pulmonary -patient was saturating around 88-90% while on bipap -will bring to ICU and monitor on high flow, on 60lpm -treating for bilateral pneumonia -solumedrol 40q6h on zosyn -ID consultation -CXR in AM -nish Renal -patient has azotemia and worsening of his chronic kidney disease -dialysis as per Nephro -repeat BMP in AM -Anti histone AB pending - Rheum consult FEN -no standing fluids -replete lytes as necessary in AM Disposition -monitor in ICU Visit type - Emergency Visit Emergency Visit: No - New Patient This patient is new to me today: No - Critical Care Critical Care patient: Yes Total Critical Care Time (in minutes): 38 Critical Care Statement: The care of this patient involved high complexity decision making to prevent further life threatening deterioration of the patient 's condition and/or to evaluate & treat vital organ system(s) failure or risk of failure.
[2018-09-30] MEDS ORDERED: PANTOPRAZOLE 20 MG TABLET (FP) PO ONE (01:20)
[2018-09-30] MEDS ORDERED: PIPERACILLIN/TAZOBACTAM 2.25 GM VIAL IVPB ONE ×3 (04:09→17:12)
[2018-09-30] MEDS ORDERED: DEXTROSE 5%-WATER - 50 ML IVPB ONE ×3 (04:09→17:12)
[2018-09-30] MEDS: PIPERACILLIN/TAZOB 2.25 GM 2.25 GM in DEXTROSE 5%-WATER - 50 ML IVPB SCH ×3 (04:13→17:23)
[2018-09-30] MEDS: methylPREDNISolone NA SUCC 40 MG/1 ML VIAL IVPUSH SCH ×4 (04:13→21:35)
[2018-09-30] MEDS ORDERED: METHADONE HCL 10 MG TABLET ONE (05:49)
[2018-09-30] MEDS ORDERED: METHADONE HCL 40 MG DISPERSABLE TABLET ONE (05:50)
[2018-09-30] MEDS: METHADONE 40 MG, METHADONE 20 MG PO SCH (05:52)
[2018-09-30] MEDS: INSULIN SLIDING SCALE (NOVOLOG) 1 VIAL SQ SCH ×4 (06:02→22:27)
[2018-09-30 06:30] LABS: HEMATOCRIT 24.8 % (35.4-49); HEMOGLOBIN 8.2 GM/dL (11.7-16.9); MCH 28.3 pg (25.7-33.7); MCHC 33.1 g/dl (32.0-35.9); MEAN CELL VOLUME 85.7 fl (80-96); MEAN PLT VOLUME 8.2 fl (7.5-11.1); PLATELET COUNT 243 K/MM3 (134-434); RBC 2.89 M/mm3 (4.00-5.60); RDW 14.4 % (11.9-15.9); WHITE BLOOD COUNT 16.7 K/mm3 (4.0-10.0)
[2018-09-30 06:54] LABS: CALCIUM 7.8 mg/dL (8.5-10.1); CREATININE 3.1 mg/dL (0.55-1.3); MAGNESIUM 2.6 mg/dL (1.8-2.4); PHOSPHOROUS 6.2 mg/dL (2.5-4.9); POTASSIUM 4.3 mmol/L (3.5-5.1)
[2018-09-30 07:06] LABS: BLOOD UREA NITROGEN 118.2 mg/dL (7-18)
--- NOTE | 2018-09-30 08:12 | PN ---
Progress Note (short form) - Note Progress Note: Renal follow up for BRET Pt seen and examined in the ICU awake and alert on high flow O2 no sob, chest pain, abd pain, N/V making urine via alcantara Vital Signs Temperature 98.7 F 09/29/18 22:00 Pulse Rate 63 09/30/18 06:00 Respiratory Rate 13 09/30/18 06:00 Blood Pressure 182/75 H 09/30/18 06:00 O2 Sat by Pulse Oximetry (%) 94 L 09/30/18 01:19 Intake & Output 09/27/18 09/28/18 09/29/18 09/30/18 23:59 23:59 23:59 23:59 Intake Total 780 220 620 60 Output Total 1500 2250 850 700 Balance -720 -2030 -230 -640 Weight 90.8 kg 89.8 kg 87.1 kg 82.299 kg NAD RRR, no M/R BS improved soft, obese NT/ND CBC, BMP 09/30/18 05:35 09/30/18 05:35 Laboratory Tests 09/19/18 09/20/18 09/28/18 05:39 06:13 05:45 Est GFR (CKD-EPI)AfAm 16.98 Calcium 8.1 L Phosphorus Magnesium Albumin Random Vancomycin 7.5 L CHICHI Screen Pending 09/28/18 09/30/18 05:45 05:35 Est GFR (CKD-EPI)AfAm Calcium 8.1 L 7.8 L Phosphorus 6.2 H Magnesium 2.6 H Albumin 1.7 L Random Vancomycin CHICHI Screen Current Medications Artificial Tears (Artificial Tears) 2 drop OU Q8H PRN PRN Reason: DRY EYES Atorvastatin Calcium (Lipitor -) 20 mg PO HS [facility] Last Admin: 09/29/18 21:26 Dose: 20 mg Calcium Acetate (Phoslo -) 667 mg PO TIDCM [facility] Last Admin: 09/29/18 16:52 Dose: 667 mg Piperacillin Sod/Tazobactam (Sod 2.25 gm/ Dextrose) 50 mls @ 100 mls/hr IVPB Q8H-IV [facility]; Protocol Last Admin: 09/30/18 04:13 Dose: 100 mls/hr Insulin Aspart (Novolog Vial Sliding Scale -) 1 vial SQ ACHS [facility]; Protocol Last Admin: 09/30/18 06:02 Dose: 3 units Insulin Detemir (Levemir Vial) 10 units SQ HS [facility] Last Admin: 09/29/18 21:26 Dose: 10 unit Labetalol HCl (Normodyne -) 400 mg PO BID [facility] Last Admin: 09/29/18 21:26 Dose: 400 mg Methadone HCl 40 mg/ Methadone (HCl 20 mg) 60 mg PO DAILY@0600 [facility] Last Admin: 09/30/18 05:52 Dose: 60 mg Methylprednisolone Sodium Succinate (Solu-Medrol -) 40 mg IVPUSH Q6H-IV [facility] Last Admin: 09/30/18 04:13 Dose: 40 mg Ranitidine HCl (Zantac -) 150 mg PO DAILY [facility] Last Admin: 09/30/18 00:14 Dose: 150 mg Sodium Chloride ([place] Nasal [place] -) 2 spray NS Q8H PRN PRN Reason: NASAL CONGESTION Last Admin: 09/23/18 22:20 Dose: 2 spray CXR- left perihilar infiltrate, large right effusion with infiltrate ECHO- normal LV/RV function, trace MR 68 year old gentleman with hx of of hypertension, DM on insulin, PVD s/ p Le stents, BPH, Hx of Lung cancer s/p resection who presented with SOB and noted to have BUN/Cr of 79/3.2. #Acute shortness of breath form diastolic HF + PNA #Peripheral edema #Acute on chronic renal insufficiency #Anemia #Hypertension #BPH no plan for dialysis today clinically improved BUN/Cr remains elevated, trend for now would hold diuretics today as he has no edema and lungs sound clear UPCR is 3.2, CHICHI negative, ANCA is negative, anti-histone ab pending Urine Legionella Ag negative CT of the chest consistent with PNA Renal imgaing showed no obstruction but did show lesion on spleen, would need CT with contrast to evalulate but should wait until renal function is improved Trend daily weights continue labetalol Discontinue Cardura and amlodipine (can cause peripheral edema as medication side effect) BP remains elevated, start Clonidine for BP control, 0.1mg BID Dariusz Iniguez DO
[2018-09-30] MEDS: CALCIUM ACETATE 667 MG CAPSULE (FP) PO SCH ×3 (08:46→17:23)
--- NOTE | 2018-09-30 09:25 | PN ---
Progress Note, Physician Chief Complaint: seen and examined in ICU No CP, SOB Weight continues to go down TELE: NSR History of Present Illness: BP is elevated - Current Medication List Current Medications: Active Medications Artificial Tears (Artificial Tears) 2 drop OU Q8H PRN PRN Reason: DRY EYES Atorvastatin Calcium (Lipitor -) 20 mg PO HS [facility] Last Admin: 09/29/18 21:26 Dose: 20 mg Calcium Acetate (Phoslo -) 667 mg PO TIDCM [facility] Last Admin: 09/30/18 08:46 Dose: 667 mg Piperacillin Sod/Tazobactam (Sod 2.25 gm/ Dextrose) 50 mls @ 100 mls/hr IVPB Q8H-IV [facility]; Protocol Last Admin: 09/30/18 04:13 Dose: 100 mls/hr Insulin Aspart (Novolog Vial Sliding Scale -) 1 vial SQ [facility]; Protocol Last Admin: 09/30/18 06:02 Dose: 3 units Insulin Detemir (Levemir Vial) 10 units SQ HS [facility] Last Admin: 09/29/18 21:26 Dose: 10 unit Labetalol HCl (Normodyne -) 400 mg PO BID [facility] Last Admin: 09/29/18 21:26 Dose: 400 mg Methadone HCl 40 mg/ Methadone (HCl 20 mg) 60 mg PO DAILY@0600 [facility] Last Admin: 09/30/18 05:52 Dose: 60 mg Methylprednisolone Sodium Succinate (Solu-Medrol -) 40 mg IVPUSH Q6H-IV [facility] Last Admin: 09/30/18 08:51 Dose: 40 mg Ranitidine HCl (Zantac -) 150 mg PO DAILY [facility] Last Admin: 09/30/18 00:14 Dose: 150 mg Sodium Chloride ([place] -) 2 spray NS Q8H PRN PRN Reason: NASAL CONGESTION Last Admin: 09/23/18 22:20 Dose: 2 spray - Objective Vital Signs: Vital Signs Temperature 98.7 F 09/29/18 22:00 Pulse Rate 65 09/30/18 08:00 Respiratory Rate 16 09/30/18 08:00 Blood Pressure 182/66 H 09/30/18 08:00 O2 Sat by Pulse Oximetry (%) 96 09/30/18 09:00 Constitutional: Yes: No Distress Cardiovascular: Yes: Regular Rate and Rhythm Respiratory: Yes: CTA Bilaterally Gastrointestinal: Yes: Soft, Abdomen, Obese Edema: No Neurological: Yes: Alert, Oriented Labs: CBC, BMP 09/30/18 05:35 09/30/18 05:35 INR, PTT INR 1.11 (0.83-1.09) H 09/17/18 12:23 Laboratory Tests 09/30/18 09/30/18 05:35 05:35 WBC 16.7 H Hgb 8.2 L Hct 24.8 L Plt Count 243 Sodium 139 Potassium 4.3 BUN 118.2 H* Creatinine 3.1 H Calcium 7.8 L Phosphorus 6.2 H Magnesium 2.6 H - ....Imaging EKG: Image Reviewed Assessment/Plan Assessment/Plan mibi 2015 no ischemia, nl EF EKG: sinus, PVC, no ischemic changes echo 09/2018 nl LV function, mild MAC, tr MR, tr AR, RVSP 32 mmHg CXR: extensive bilat infiltrates with R effusion, worse 68M h/o HTN, DM, HLD, PAD s/p femoral stent, prior smoker, R sided lung ca s/p partial resection p/w shortness of breath: Shortness of breath, PNA, acute diastolic CHF exacerbation: - likely multifactorial - h/o lung ca s/p resection, findings concerning for PNA - abx, nebs per primary, pulm - elevated BNP with congestion on CXR, likely component of HF - nl EF in 2016 - echo nl LV function - Clinically improved w/ HD BRET on CKD: started on HD: -likely component of cardiorenal syndrome HTN: - holding home diuretic, valsartan - BP elevated. D/W renal. We have stopped Ca2+ [place] due to LE edema. Cont. Labetalol, no objection to starting Clonidine. Patient appears compliant and will advise on importance of adherence. HLD: - cont statin PAD: - cont statin, aspirin
[2018-09-30] MEDS: LABETALOL HCL 200 MG TABLET (FP) PO SCH ×2 (09:33→22:08)
--- NOTE | 2018-09-30 09:53 | PN ---
Teaching Attending Note Name of Resident: Heri Martinez ATTENDING PHYSICIAN STATEMENT I saw and evaluated the patient. I reviewed the resident's note and discussed the case with the resident. I agree with the resident's findings and plan as documented. SUBJECTIVE: Patient seen and examined in the ICU. Awake and alert. Breathing feels better on HFOT, but still mildly tachypneic. HFOT: 60L & 75% FiO2 No CP. Intake & Output 09/27/18 09/28/18 09/29/18 09/30/18 23:59 23:59 23:59 23:59 Intake Total 780 220 620 60 Output Total 1500 2250 850 700 Balance -720 -2030 -230 -640 Weight 200 lb 2.876 oz 197 lb 15.602 oz 192 lb 0.362 oz 181 lb 7 oz Last Vital Signs Temp Pulse Resp BP Pulse Ox 98.7 F 65 16 182/66 H 96 09/29/18 22:00 09/30/18 08:00 09/30/18 08:00 09/30/18 08:00 09/30/18 09:00 Active Medications Artificial Tears (Artificial Tears) 2 drop OU Q8H PRN PRN Reason: DRY EYES Atorvastatin Calcium (Lipitor -) 20 mg PO HS [facility] Last Admin: 09/29/18 21:26 Dose: 20 mg Calcium Acetate (Phoslo -) 667 mg PO TIDCM [facility] Last Admin: 09/30/18 08:46 Dose: 667 mg Piperacillin Sod/Tazobactam (Sod 2.25 gm/ Dextrose) 50 mls @ 100 mls/hr IVPB Q8H-IV [facility]; Protocol Last Admin: 09/30/18 09:33 Dose: 100 mls/hr Insulin Aspart (Novolog Vial Sliding Scale -) 1 vial SQ [facility]; Protocol Last Admin: 09/30/18 06:02 Dose: 3 units Insulin Detemir (Levemir Vial) 10 units SQ [facility] Last Admin: 09/29/18 21:26 Dose: 10 unit Labetalol HCl (Normodyne -) 400 mg PO BID [facility] Last Admin: 09/30/18 09:33 Dose: 400 mg Methadone HCl 40 mg/ Methadone (HCl 20 mg) 60 mg PO DAILY@0600 [facility] Last Admin: 09/30/18 05:52 Dose: 60 mg Methylprednisolone Sodium Succinate (Solu-Medrol -) 40 mg IVPUSH Q6H-IV [facility] Last Admin: 09/30/18 08:51 Dose: 40 mg Ranitidine HCl (Zantac -) 150 mg PO DAILY [facility] Last Admin: 09/30/18 09:34 Dose: 150 mg Sodium Chloride ([place] Nasal [place] -) 2 spray NS Q8H PRN PRN Reason: NASAL CONGESTION Last Admin: 09/23/18 22:20 Dose: 2 spray Constitutional: Yes: Awake and alert, Mildly tachypneic Eyes: Yes: WNL HENT: Yes: WNL Neck: Yes: WNL Cardiovascular: Yes: Regular Rate and Rhythm, S1, S2 Respiratory: Yes: Rales & Rhonchi Gastrointestinal: Yes: Normal Bowel Sounds, Soft Extremities: Yes: WNL Edema: Yes Labs: Laboratory Results - last 24 hr 09/28/18 09/29/18 09/29/18 15:00 11:04 16:31 WBC RBC Hgb Hct MCV MCH MCHC RDW Plt Count MPV Sodium Potassium Chloride Carbon Dioxide Anion Gap BUN Creatinine Est GFR (CKD-EPI)AfAm Est GFR (CKD-EPI)NonAf POC Glucometer 95 219 Random Glucose Calcium Phosphorus Magnesium Hep Bs Antigen Negative 09/29/18 09/30/18 09/30/18 21:29 05:35 05:35 WBC 16.7 H RBC 2.89 L Hgb 8.2 L Hct 24.8 L MCV 85.7 MCH 28.3 MCHC 33.1 RDW 14.4 Plt Count 243 MPV 8.2 Sodium 139 Potassium 4.3 Chloride 98 Carbon Dioxide 30 Anion Gap 11 BUN 118.2 H* Creatinine 3.1 H Est GFR (CKD-EPI)AfAm 22.41 Est GFR (CKD-EPI)NonAf 19.33 POC Glucometer 316 Random Glucose 162 H Calcium 7.8 L Phosphorus 6.2 H Magnesium 2.6 H Hep Bs Antigen 09/30/18 05:36 WBC RBC Hgb Hct MCV MCH MCHC RDW Plt Count MPV Sodium Potassium Chloride Carbon Dioxide Anion Gap BUN Creatinine Est GFR (CKD-EPI)AfAm Est GFR (CKD-EPI)NonAf POC Glucometer 156 Random Glucose Calcium Phosphorus Magnesium Hep Bs Antigen Problem List - Problems (1) Ryplo-kk-mrngbym kidney injury Code(s): N17.9 - ACUTE KIDNEY FAILURE, UNSPECIFIED; N18.9 - CHRONIC KIDNEY DISEASE, UNSPECIFIED (2) CHF exacerbation Code(s): I50.9 - HEART FAILURE, UNSPECIFIED (3) Chronic renal insufficiency, stage III (moderate) Code(s): N18.3 - CHRONIC KIDNEY DISEASE, STAGE 3 (MODERATE) (4) Diabetes Code(s): E11.9 - TYPE 2 DIABETES MELLITUS WITHOUT COMPLICATIONS (5) History of lung cancer Code(s): Z85.118 - PERSONAL HISTORY OF MALIGNANT NEOPLASM OF BRONCHUS AND LUNG (6) Normocytic anemia Code(s): D64.9 - ANEMIA, UNSPECIFIED (7) Dyspnea Code(s): R06.00 - DYSPNEA, UNSPECIFIED Assessment/Plan IMP DYSPNEA ACUTE HYPOXEMIC RESPIRATORY FAILURE BILATERAL INFILTRATES ACUTE ON CHRONIC CHF PNEUMONIA ACUTE ON CHRONIC KIDNEY INJURY ANEMIA HTN DM H/O LUNG CA S/P RESECTION 1984 (?) ILD PLAN PLAN FOR POSSIBLE HD TODAY PER RENAL WEAN HFOT TOLERATED ABX PER ID F/U CHEST X-RAYS MONITOR LYTES,RENAL FUNCTION MONITOR CBC DAILY WT STRICT I+Os WEAN HFOT TOLERATED REQUIRES ICU MONITORING FOR HFOT AND TENUOUS STATUS Dr Deshpande Critical care time spent in reviewing chart, evaluating patient and formulating plan - 36 minutes.
--- NOTE | 2018-09-30 10:02 | PN ---
Progress Note (short form) - Note Progress Note: events noted pt in ICU awake and alert on high flow O2 feeling well no complaints Vital Signs - 24 hr 09/29/18 09/29/18 09/29/18 20:34 21:31 22:00 Temperature 98.7 F Pulse Rate 73 66 Respiratory 16 Rate Blood Pressure 186/69 H O2 Sat by Pulse 96 93 L Oximetry (%) 09/30/18 09/30/18 09/30/18 00:00 01:19 02:00 Temperature Pulse Rate 109 H 84 58 L Respiratory 14 13 Rate Blood Pressure 119/63 168/58 L O2 Sat by Pulse 94 L Oximetry (%) 09/30/18 09/30/18 09/30/18 04:00 06:00 08:00 Temperature Pulse Rate 61 63 65 Respiratory 12 13 16 Rate Blood Pressure 177/61 H 182/75 H 182/66 H O2 Sat by Pulse Oximetry (%) 09/30/18 09/30/18 09/30/18 09:00 10:00 12:00 Temperature 97.6 F Pulse Rate 65 58 L Respiratory 16 16 Rate Blood Pressure 182/66 H 151/56 L O2 Sat by Pulse 96 Oximetry (%) Current Medications Generic Name Dose Route Start Last Admin Trade Name Freq PRN Reason Stop Dose Admin Artificial Tears 2 drop 09/20/18 16:13 Artificial Tears OU Q8H PRN DRY EYES Atorvastatin Calcium 20 mg 09/17/18 22:00 09/29/18 21:26 Lipitor - PO 20 mg HS [facility] Administration Calcium Acetate 667 mg 09/25/18 17:30 09/30/18 17:23 Phoslo - PO 667 mg TIDCM [facility] Administration Clonidine 0.1 mg 09/30/18 22:00 Catapres - PO BID [facility] Piperacillin Sod/Tazobactam 50 mls @ 100 mls/hr 09/26/18 13:45 09/30/18 17:23 Sod 2.25 gm/ Dextrose IVPB 100 mls/hr Q8H-IV [facility] Administration Protocol Insulin Aspart 1 vial 09/17/18 16:30 09/30/18 17:21 Novolog Vial Sliding Scale - SQ 5 units ACHS [facility] Administration Protocol Insulin Detemir 10 units 09/17/18 22:00 09/29/18 21:26 Levemir Vial SQ 10 unit HS [facility] Administration Labetalol HCl 400 mg 09/19/18 10:40 09/30/18 09:33 Normodyne - PO 400 mg BID [facility] Administration Methadone HCl 40 mg/ Methadone 60 mg 09/27/18 06:30 09/30/18 05:52 HCl 20 mg PO 60 mg DAILY@0600 [facility] Administration Methylprednisolone Sodium Succinate 40 mg 09/26/18 15:00 09/30/18 15:30 Solu-Medrol - IVPUSH 40 mg Q6H-IV [facility] Administration Ranitidine HCl 150 mg 09/29/18 22:00 09/30/18 09:34 Zantac - PO 150 mg DAILY [facility] Administration Sodium Chloride 2 spray 09/23/18 15:50 09/23/18 22:20 [place] Nasal [place] - NS 2 spray Q8H PRN Administration NASAL CONGESTION Laboratory Results - last 24 hr 09/28/18 09/29/18 09/30/18 15:00 21:29 05:35 WBC 16.7 H RBC 2.89 L Hgb 8.2 L Hct 24.8 L MCV 85.7 MCH 28.3 MCHC 33.1 RDW 14.4 Plt Count 243 MPV 8.2 Sodium Potassium Chloride Carbon Dioxide Anion Gap BUN Creatinine Est GFR (CKD-EPI)AfAm Est GFR (CKD-EPI)NonAf POC Glucometer 316 Random Glucose Calcium Phosphorus Magnesium Hep Bs Antigen Negative 09/30/18 09/30/18 09/30/18 05:35 05:36 12:13 WBC RBC Hgb Hct MCV MCH MCHC RDW Plt Count MPV Sodium 139 Potassium 4.3 Chloride 98 Carbon Dioxide 30 Anion Gap 11 BUN 118.2 H* Creatinine 3.1 H Est GFR (CKD-EPI)AfAm 22.41 Est GFR (CKD-EPI)NonAf 19.33 POC Glucometer 156 214 Random Glucose 162 H Calcium 7.8 L Phosphorus 6.2 H Magnesium 2.6 H Hep Bs Antigen S1 s2 RRR Lungs decreased abd- soft, NT JVD+ edema+ PLAN CHF--on HD leucocytosis-- blood cultures , ua and urine culture-- negative ID eval noted-- on Zosyn on solumedrol no diarrhea holding dialysis today may need renal biospy per renal has splenic lesion-- can not do contrast imaging due to decreased renal function Problem List - Problems (1) BRET (acute kidney injury) Code(s): N17.9 - ACUTE KIDNEY FAILURE, UNSPECIFIED (2) Acute and chronic respiratory failure Code(s): J96.20 - ACUTE AND CHR RESP FAILURE, UNSP W HYPOXIA OR HYPERCAPNIA (3) Czvks-df-sezwsps kidney injury Code(s): N17.9 - ACUTE KIDNEY FAILURE, UNSPECIFIED; N18.9 - CHRONIC KIDNEY DISEASE, UNSPECIFIED (4) CHF exacerbation Code(s): I50.9 - HEART FAILURE, UNSPECIFIED (5) Diabetes Code(s): E11.9 - TYPE 2 DIABETES MELLITUS WITHOUT COMPLICATIONS
--- NOTE | 2018-09-30 12:05 | PN ---
Physical Exam: SUBJECTIVE: Patient seen and examined at bedside. OBJECTIVE: Vital Signs Period Temp Pulse Resp BP Sys/Bansal Pulse Ox Last 24 Hr 98.3 F-98.7 F 58-109 12-22 119-186/58-127 93-96 Gen: Comfortable HEENT: NCAT, eomi Neck: supple Cardio: rrr, normal s1s2, no mrg appreciated Pulm: HF02, cta b/l Abd: soft, nontender Ext: no edema Laboratory Results - last 24 hr 09/28/18 09/29/18 09/29/18 15:00 16:31 21:29 WBC RBC Hgb Hct MCV MCH MCHC RDW Plt Count MPV Sodium Potassium Chloride Carbon Dioxide Anion Gap BUN Creatinine Est GFR (CKD-EPI)AfAm Est GFR (CKD-EPI)NonAf POC Glucometer 219 316 Random Glucose Calcium Phosphorus Magnesium Hep Bs Antigen Negative 09/30/18 09/30/18 09/30/18 05:35 05:35 05:36 WBC 16.7 H RBC 2.89 L Hgb 8.2 L Hct 24.8 L MCV 85.7 MCH 28.3 MCHC 33.1 RDW 14.4 Plt Count 243 MPV 8.2 Sodium 139 Potassium 4.3 Chloride 98 Carbon Dioxide 30 Anion Gap 11 BUN 118.2 H* Creatinine 3.1 H Est GFR (CKD-EPI)AfAm 22.41 Est GFR (CKD-EPI)NonAf 19.33 POC Glucometer 156 Random Glucose 162 H Calcium 7.8 L Phosphorus 6.2 H Magnesium 2.6 H Hep Bs Antigen Active Medications Generic Name Dose Route Start Last Admin Trade Name Freq PRN Reason Stop Dose Admin Artificial Tears 2 drop 09/20/18 16:13 Artificial Tears OU Q8H PRN DRY EYES Atorvastatin Calcium 20 mg 09/17/18 22:00 09/29/18 21:26 Lipitor - PO 20 mg HS [facility] Administration Calcium Acetate 667 mg 09/25/18 17:30 09/30/18 08:46 Phoslo - PO 667 mg TIDCM [facility] Administration Piperacillin Sod/Tazobactam 50 mls @ 100 mls/hr 09/26/18 13:45 09/30/18 09:33 Sod 2.25 gm/ Dextrose IVPB 100 mls/hr Q8H-IV [facility] Administration Protocol Insulin Aspart 1 vial 09/17/18 16:30 09/30/18 06:02 Novolog Vial Sliding Scale - SQ 3 units ACHS [facility] Administration Protocol Insulin Detemir 10 units 09/17/18 22:00 09/29/18 21:26 Levemir Vial SQ 10 unit HS [facility] Administration Labetalol HCl 400 mg 09/19/18 10:40 09/30/18 09:33 Normodyne - PO 400 mg BID [facility] Administration Methadone HCl 40 mg/ Methadone 60 mg 09/27/18 06:30 09/30/18 05:52 HCl 20 mg PO 60 mg DAILY@0600 [facility] Administration Methylprednisolone Sodium Succinate 40 mg 09/26/18 15:00 09/30/18 08:51 Solu-Medrol - IVPUSH 40 mg Q6H-IV [facility] Administration Ranitidine HCl 150 mg 09/29/18 22:00 09/30/18 09:34 Zantac - PO 150 mg DAILY [facility] Administration Sodium Chloride 2 spray 09/23/18 15:50 09/23/18 22:20 [place] Nasal [place] - NS 2 spray Q8H PRN Administration NASAL CONGESTION ASSESSMENT/PLAN: Pt is a 68 year old male with a past medical history of hypertension, insulin dependent diabetes, hyperlipidemia, NPH, UTI and R sided lung CA s/p resection many years ago (benign according to daughter) was brought to the hospital for shortness of breath and admitted for treatment of acute hypoxic respiratory failure 2/2 CHF exacerbation and pneumonia. #Acute hypoxic resp failure 2/2 pna -high flow O2. Wean as tolerated -on zosyn -ID on board -CXR for tomorrow #CHF -improving -monitor I & O -c/w labetalol #BRET on CKD -improving -monitor outer diameter grinder tool #NIDDM -c/w levemir + ISS -bgm achs #HLD -c/w statin #HTN -labetalol Visit type - Emergency Visit Emergency Visit: No - New Patient This patient is new to me today: No - Critical Care Critical Care patient: Yes Total Critical Care Time (in minutes): 35 Critical Care Statement: The care of this patient involved high complexity decision making to prevent further life threatening deterioration of the patient 's condition and/or to evaluate & treat vital organ system(s) failure or risk of failure.
--- NOTE | 2018-09-30 12:08 | PN ---
Progress Note, Physician History of Present Illness: AWAKE, ALERT SEATED IN BED DENIES DYSPNEA BREATHING NON LABORED ON HIGH FLOW O2 AFEBRILE WBC ELEVATED BC (-) - Current Medication List Current Medications: Active Medications Artificial Tears (Artificial Tears) 2 drop OU Q8H PRN PRN Reason: DRY EYES Atorvastatin Calcium (Lipitor -) 20 mg PO HS [facility] Last Admin: 09/29/18 21:26 Dose: 20 mg Calcium Acetate (Phoslo -) 667 mg PO TIDCM [facility] Last Admin: 09/30/18 08:46 Dose: 667 mg Piperacillin Sod/Tazobactam (Sod 2.25 gm/ Dextrose) 50 mls @ 100 mls/hr IVPB Q8H-IV [facility]; Protocol Last Admin: 09/30/18 09:33 Dose: 100 mls/hr Insulin Aspart (Novolog Vial Sliding Scale -) 1 vial SQ [facility]; Protocol Last Admin: 09/30/18 06:02 Dose: 3 units Insulin Detemir (Levemir Vial) 10 units SQ [facility] Last Admin: 09/29/18 21:26 Dose: 10 unit Labetalol HCl (Normodyne -) 400 mg PO BID [facility] Last Admin: 09/30/18 09:33 Dose: 400 mg Methadone HCl 40 mg/ Methadone (HCl 20 mg) 60 mg PO DAILY@0600 [facility] Last Admin: 09/30/18 05:52 Dose: 60 mg Methylprednisolone Sodium Succinate (Solu-Medrol -) 40 mg IVPUSH Q6H-IV [facility] Last Admin: 09/30/18 08:51 Dose: 40 mg Ranitidine HCl (Zantac -) 150 mg PO DAILY [facility] Last Admin: 09/30/18 09:34 Dose: 150 mg Sodium Chloride ([place] Nasal [place] -) 2 spray NS Q8H PRN PRN Reason: NASAL CONGESTION Last Admin: 09/23/18 22:20 Dose: 2 spray - Objective Vital Signs: Vital Signs Temperature 97.6 F 09/30/18 10:00 Pulse Rate 58 L 09/30/18 12:00 Respiratory Rate 16 09/30/18 12:00 Blood Pressure 151/56 L 09/30/18 12:00 O2 Sat by Pulse Oximetry (%) 96 09/30/18 09:00 Constitutional: Yes: No Distress Eyes: Yes: Conjunctiva Clear Cardiovascular: Yes: Regular Rate and Rhythm, S1, S2 Respiratory: Yes: CTA Bilaterally Gastrointestinal: Yes: Normal Bowel Sounds, Soft. No: Tenderness Edema: Yes Edema: LLE: 1+, RLE: 1+ Labs: CBC, BMP 09/30/18 05:35 09/30/18 05:35 INR, PTT INR 1.11 (0.83-1.09) H 09/17/18 12:23 Assessment/Plan PNEUMONIA/ CHF IMPROVED RENAL FAILURE LEUKOCYTOSIS IMPROVED CONTINUE ZOSYN/ STEROIDS
[2018-09-30] MEDS: ATORVASTATIN CA 20 MG TABLET (FP) PO SCH (22:08)
[2018-09-30] MEDS: cloNIDine HCL 0.1 MG TABLET PO SCH (22:08)
[2018-09-30] MEDS: INSULIN (LEVEMIR) 100 UNITS/ML UNITS SQ SCH (22:28)
[2018-09-30] MEDS ORDERED: RANITIDINE HCL 150 MG TABLET (FP) PO ONE (22:48)
[2018-10-01] MEDS ORDERED: amLODIPine BESYLATE 5 MG TABLET (FP) PO ONE (02:06)
[2018-10-01] MEDS ORDERED: DEXTROSE 5%-WATER - 50 ML IVPB ONE ×3 (02:12→16:44)
[2018-10-01] MEDS ORDERED: PIPERACILLIN/TAZOBACTAM 2.25 GM VIAL IVPB ONE ×3 (02:12→16:44)
[2018-10-01] MEDS: methylPREDNISolone NA SUCC 40 MG/1 ML VIAL IVPUSH SCH ×4 (02:16→21:22)
[2018-10-01] MEDS: PIPERACILLIN/TAZOB 2.25 GM 2.25 GM in DEXTROSE 5%-WATER - 50 ML IVPB SCH ×3 (02:16→18:30)
[2018-10-01] MEDS ORDERED: CALCIUM CARBONATE 650 MG TABLET PO ONE (03:00)
[2018-10-01] MEDS ORDERED: PANTOPRAZOLE 40 MG TABLET (FP) PO ONE (03:00)
[2018-10-01] MEDS ORDERED: METHADONE HCL 10 MG TABLET ONE (05:48)
[2018-10-01] MEDS ORDERED: METHADONE HCL 40 MG DISPERSABLE TABLET ONE (05:48)
[2018-10-01] MEDS: METHADONE 40 MG, METHADONE 20 MG PO SCH (05:49)
[2018-10-01 05:53] LABS: BASO % 0.1 % (0-2.0); HEMOGLOBIN 7.9 GM/dL (11.7-16.9); LYMPH % 1.2 % (8-40); MCHC 32.7 g/dl (32.0-35.9); MEAN CELL VOLUME 85.5 fl (80-96); MEAN PLT VOLUME 8.3 fl (7.5-11.1); MONO % 2.9 % (3.8-10.2); NEUT % 95.8 % (42.8-82.8); PLATELET COUNT 239 K/MM3 (134-434); RBC 2.81 M/mm3 (4.00-5.60); RDW 14.7 % (11.9-15.9); WHITE BLOOD COUNT 17.5 K/mm3 (4.0-10.0)
[2018-10-01] MEDS: INSULIN SLIDING SCALE (NOVOLOG) 1 VIAL SQ SCH ×4 (06:24→21:28)
[2018-10-01 06:27] LABS: ALBUMIN 1.8 g/dl (3.4-5.0); BILIRUBIN,TOTAL 0.4 mg/dL (0.2-1); CALCIUM 7.8 mg/dL (8.5-10.1); CREATININE 3.4 mg/dL (0.55-1.3); TOT PROT 5.5 g/dl (6.4-8.2)
[2018-10-01 06:29] LABS: BLOOD UREA NITROGEN 140.2 mg/dL (7-18)
[2018-10-01] MEDS: CALCIUM ACETATE 667 MG CAPSULE (FP) PO SCH ×3 (08:42→18:00)
[2018-10-01] MEDS ORDERED: PT OWN MED DRAWER 7, Y5N ONE ×2 (08:58→20:59)
[2018-10-01] MEDS: cloNIDine HCL 0.1 MG TABLET PO SCH ×2 (09:01→21:22)
[2018-10-01] MEDS: LABETALOL HCL 200 MG TABLET (FP) PO SCH ×2 (09:01→21:23)
[2018-10-01] MEDS: PANTOPRAZOLE 40 MG TABLET (FP) PO SCH (09:01)
[2018-10-01 09:14] LABS: ANISOCYTOSIS 1+; MACROCYTOSIS 0; PLATELET ESTIMATE NORMAL
[2018-10-01] MEDS ORDERED: RANITIDINE HCL 150 MG TABLET (FP) PO SCH (10:00)
--- NOTE | 2018-10-01 10:17 | PN ---
Progress Note, Physician Chief Complaint: sob History of Present Illness: breatging is better feet still a little swollen no cp no palpit - Current Medication List Current Medications: Active Medications Artificial Tears (Artificial Tears) 2 drop OU Q8H PRN PRN Reason: DRY EYES Atorvastatin Calcium (Lipitor -) 20 mg PO HS [facility] Last Admin: 09/30/18 22:08 Dose: 20 mg Calcium Acetate (Phoslo -) 667 mg PO TIDCM [facility] Last Admin: 10/01/18 08:42 Dose: 667 mg Clonidine (Catapres -) 0.1 mg PO BID [facility] Last Admin: 10/01/18 09:01 Dose: 0.1 mg Piperacillin Sod/Tazobactam (Sod 2.25 gm/ Dextrose) 50 mls @ 100 mls/hr IVPB Q8H-IV [facility]; Protocol Last Admin: 10/01/18 09:01 Dose: 100 mls/hr Insulin Aspart (Novolog Vial Sliding Scale -) 1 vial SQ [facility]; Protocol Last Admin: 10/01/18 06:24 Dose: 3 units Insulin Detemir (Levemir Vial) 10 units SQ [facility] Last Admin: 09/30/18 22:28 Dose: 10 unit Labetalol HCl (Normodyne -) 400 mg PO BID [facility] Last Admin: 10/01/18 09:01 Dose: 400 mg Methadone HCl 40 mg/ Methadone (HCl 20 mg) 60 mg PO DAILY@0600 [facility] Last Admin: 10/01/18 05:49 Dose: 60 mg Methylprednisolone Sodium Succinate (Solu-Medrol -) 40 mg IVPUSH Q6H-IV [facility] Last Admin: 10/01/18 09:01 Dose: 40 mg Pantoprazole Sodium (Protonix -) 40 mg PO DAILY [facility] Last Admin: 10/01/18 09:01 Dose: 40 mg Sodium Chloride ([place] Nasal [place] -) 2 spray NS Q8H PRN PRN Reason: NASAL CONGESTION Last Admin: 09/23/18 22:20 Dose: 2 spray - Objective Vital Signs: Vital Signs Temperature 97.7 F 10/01/18 08:00 Pulse Rate 62 10/01/18 08:42 Respiratory Rate 14 10/01/18 09:00 Blood Pressure 194/63 H 10/01/18 08:00 O2 Sat by Pulse Oximetry (%) 96 10/01/18 09:00 Constitutional: Yes: Well Nourished, No Distress, Calm Cardiovascular: Yes: Regular Rate and Rhythm, S1, S2. No: JVD, Gallop, Murmur Respiratory: Yes: Regular, Rales (bases). No: Accessory Muscle Use Edema: Yes (1+ pedal) Neurological: Yes: Alert, Oriented Psychiatric: No: Agitated Labs: CBC, BMP 10/01/18 05:04 10/01/18 05:04 INR, PTT INR 1.11 (0.83-1.09) H 09/17/18 12:23 Assessment/Plan mibi 2015 no ischemia, nl EF EKG: sinus, PVC, no ischemic changes echo 09/2018 nl LV function, mild MAC, tr MR, RVSP 32 mmHg CXR: extensive bilat infiltrates with R effusion, worse 68M h/o HTN, DM, HLD, PAD s/p femoral stent, prior smoker, R sided lung ca s/p partial resection p/w shortness of breath: Shortness of breath, PNA, acute diastolic CHF exacerbation: - likely multifactorial - h/o lung ca s/p resection, findings concerning for PNA - abx, nebs per primary, pulm - elevated BNP (7K) with congestion on CXR, likely component of HF - echo nl LV function, remainder unremarkable, no pulm HTN noted - Clinically improved w/ HD--vol mgmt plan per renal BRET on CKD: started on HD: -likely component of cardiorenal syndrome HTN: - holding home diuretic, valsartan - med plan per d/w renal: Ca2+ [place] stopped due to LE edema. Cont. Labetalol , added trial of Clonidine. - BP remains uncontrolled. consider incr clonidine and/or labetalol, vs add hydralazine--will d/w renal HLD: - cont statin PAD: - cont statin, aspirin
--- NOTE | 2018-10-01 10:19 | PN ---
Progress Note (short form) - Note Progress Note: Pt seen/ examined in icu Chart is reviewed relatively feels better. still sob denies cp On hIgh flow oxygen Vital Signs Temp 97.7 F 10/01/18 08:00 Pulse 62 10/01/18 08:42 Resp 14 10/01/18 09:00 BP 194/63 H 10/01/18 08:00 Pulse Ox 96 10/01/18 09:00 Intake & Output 09/30/18 09/30/18 10/01/18 11:59 23:59 11:59 Intake Total 300 520 290 Output Total 700 790 400 Balance -400 -270 -110 Weight 181 lb 7 oz 182 lb 4.8 oz Intake: IVPB 60 100 50 Oral 240 420 240 Output: Urine 700 700 400 Quinones 700 700 Void 400 Emesis 90 Other: Voiding Method Indwelling Catheter Indwelling Catheter Indwelling Catheter Bowel Movement No No Yes: diarrhea # Bowel Movements 1 1 Weight Measurement Method Built in Bedscale Built in Bedscale Active Medications Artificial Tears (Artificial Tears) 2 drop OU Q8H PRN PRN Reason: DRY EYES Atorvastatin Calcium (Lipitor -) 20 mg PO HS [facility] Last Admin: 09/30/18 22:08 Dose: 20 mg Calcium Acetate (Phoslo -) 667 mg PO TIDCM [facility] Last Admin: 10/01/18 08:42 Dose: 667 mg Clonidine (Catapres -) 0.1 mg PO BID [facility] Last Admin: 10/01/18 09:01 Dose: 0.1 mg Piperacillin Sod/Tazobactam (Sod 2.25 gm/ Dextrose) 50 mls @ 100 mls/hr IVPB Q8H-IV [facility]; Protocol Last Admin: 10/01/18 09:01 Dose: 100 mls/hr Insulin Aspart (Novolog Vial Sliding Scale -) 1 vial SQ [facility]; Protocol Last Admin: 10/01/18 06:24 Dose: 3 units Insulin Detemir (Levemir Vial) 10 units SQ [facility] Last Admin: 09/30/18 22:28 Dose: 10 unit Labetalol HCl (Normodyne -) 400 mg PO BID [facility] Last Admin: 10/01/18 09:01 Dose: 400 mg Methadone HCl 40 mg/ Methadone (HCl 20 mg) 60 mg PO DAILY@0600 [facility] Last Admin: 10/01/18 05:49 Dose: 60 mg Methylprednisolone Sodium Succinate (Solu-Medrol -) 40 mg IVPUSH Q6H-IV [facility] Last Admin: 10/01/18 09:01 Dose: 40 mg Pantoprazole Sodium (Protonix -) 40 mg PO DAILY [facility] Last Admin: 10/01/18 09:01 Dose: 40 mg Sodium Chloride ([place] -) 2 spray NS Q8H PRN PRN Reason: NASAL CONGESTION Last Admin: 09/23/18 22:20 Dose: 2 spray CBC, BMP 10/01/18 05:04 10/01/18 05:04 cxr -- worse Physical Exam. Awake/ Comfortable S1 s2 RRR Lungs decreased at bases abd- soft, non tender. BS + A/P Acute Hypoxic Respiratory Failure Acute on Chronic Diastolic Heart Failure Acute on Chronic Renal Failure requiring HD h/o Lung Ca Hypertension Diabetes Pneumonia - Meds reviewed - continue present care --Dialysis per renal - DVT prophylaxis - continue ICU monitoring. --cc time approx 35 min in examining/ documenting and coordating care -- Discussed with Rn also Discussed with Pts son also -- With consent of pt-- In detail. - Condition gaurded will follow Problem List - Problems (1) Pneumonia Code(s): J18.9 - PNEUMONIA, UNSPECIFIED ORGANISM (2) Acute and chronic respiratory failure Code(s): J96.20 - ACUTE AND CHR RESP FAILURE, UNSP W HYPOXIA OR HYPERCAPNIA (3) CHF exacerbation Code(s): I50.9 - HEART FAILURE, UNSPECIFIED (4) History of lung cancer Code(s): Z85.118 - PERSONAL HISTORY OF MALIGNANT NEOPLASM OF BRONCHUS AND LUNG (5) Diabetes Code(s): E11.9 - TYPE 2 DIABETES MELLITUS WITHOUT COMPLICATIONS (6) Chronic renal insufficiency, stage III (moderate) Code(s): N18.3 - CHRONIC KIDNEY DISEASE, STAGE 3 (MODERATE)
[2018-10-01] MEDS ORDERED: INSULIN (NOVOLOG) ASPART 100 UNITS/ML 10ML VIAL ONE ×2 (11:23→11:27)
--- NOTE | 2018-10-01 11:49 | PN ---
Teaching Attending Note Name of Resident: Skip Day ATTENDING PHYSICIAN STATEMENT I saw and evaluated the patient. I reviewed the resident's note and discussed the case with the resident. I agree with the resident's findings and plan as documented. SUBJECTIVE: Pt seen and examined in the ICU. Remains on HFOT 60L/min, 75% FiO2. States breathing better today. No fevers recorded. OBJECTIVE: Vital Signs Period Temp Pulse Resp BP Sys/Bansal Pulse Ox Last 24 Hr 97.5 F-98 F 58-77 14-22 151-198/56-79 93-98 Intake & Output 09/28/18 09/29/18 09/30/18 10/01/18 23:59 23:59 23:59 23:59 Intake Total 220 620 820 290 Output Total 2250 850 1490 400 Balance -2030 -230 -670 -110 Weight 89.8 kg 87.1 kg 82.299 kg 82.69 kg Gen: mildly tachypneic with speaking Heart: RRR Lung: decreased breath sounds at the bases Abd: soft, nontender Ext: no edema CBC, BMP 10/01/18 05:04 10/01/18 05:04 Active Medications Artificial Tears (Artificial Tears) 2 drop OU Q8H PRN PRN Reason: DRY EYES Atorvastatin Calcium (Lipitor -) 20 mg PO HS [facility] Last Admin: 09/30/18 22:08 Dose: 20 mg Calcium Acetate (Phoslo -) 667 mg PO TIDCM [facility] Last Admin: 10/01/18 08:42 Dose: 667 mg Clonidine (Catapres -) 0.1 mg PO BID [facility] Last Admin: 10/01/18 09:01 Dose: 0.1 mg Piperacillin Sod/Tazobactam (Sod 2.25 gm/ Dextrose) 50 mls @ 100 mls/hr IVPB Q8H-IV [facility]; Protocol Last Admin: 10/01/18 09:01 Dose: 100 mls/hr Insulin Aspart (Novolog Vial Sliding Scale -) 1 vial SQ [facility]; Protocol Last Admin: 10/01/18 11:24 Dose: 3 units Insulin Detemir (Levemir Vial) 10 units SQ HS [facility] Last Admin: 09/30/18 22:28 Dose: 10 unit Labetalol HCl (Normodyne -) 400 mg PO BID [facility] Last Admin: 10/01/18 09:01 Dose: 400 mg Methadone HCl 40 mg/ Methadone (HCl 20 mg) 60 mg PO DAILY@0600 [facility] Last Admin: 10/01/18 05:49 Dose: 60 mg Methylprednisolone Sodium Succinate (Solu-Medrol -) 40 mg IVPUSH Q6H-IV [facility] Last Admin: 10/01/18 09:01 Dose: 40 mg Pantoprazole Sodium (Protonix -) 40 mg PO DAILY [facility] Last Admin: 10/01/18 09:01 Dose: 40 mg Sodium Chloride ([place] Nasal [place] -) 2 spray NS Q8H PRN PRN Reason: NASAL CONGESTION Last Admin: 09/23/18 22:20 Dose: 2 spray ASSESSMENT AND PLAN: Acute Hypoxic Respiratory Failure r/o Acute Pneumonitis/Interstitial Lung Disease r/o Pneumonia Acute on Chronic Diastolic Heart Failure Acute on Chronic Renal Failure requiring HD h/o Lung Ca HTN DM - continue medrol - continue empiric antibiotics - f/u cultures - inhaled bronchodilators - lasix, HD per renal - monitor urine output, creatinine - taper HFOT to keep SpO2 >90% - PO as tolerated - DVT prophylaxis - continue ICU monitoring critical care time spent in reviewing chart, evaluating patient and formulating plan 35 min
[2018-10-01] MEDS ORDERED: SODIUM CHLORIDE 250 ML IV PRN ×2 (11:50→11:52)
[2018-10-01] MEDS ORDERED: ALBUMIN HUMAN 25% 12.5 GM/50 ML VIAL IVPB SCH (12:00)
[2018-10-01] MEDS ORDERED: HEPARIN NA (PORCINE) 5,000 UNITS/ML 1ML VIAL IVPUSH ONE (13:00)
[2018-10-01] MEDS ORDERED: EPOETIN ALFA 10,000 UNIT/1 ML VIAL IVPUSH ONE (13:00)
[2018-10-01] MEDS: HEPARIN NA (PORCINE) 5,000 UNITS/ML 1ML VIAL IVPUSH SCH ×3 (13:15→15:18)
--- NOTE | 2018-10-01 13:47 | EKG ---
Test Reason : Blood Pressure : / mmHG Vent. Rate : 059 BPM Atrial Rate : 059 BPM P-R Int : 172 ms QRS Dur : 118 ms QT Int : 466 ms P-R-T Axes : 049 006 022 degrees QTc Int : 461 ms SINUS BRADYCARDIA WITH OCCASIONAL PREMATURE VENTRICULAR COMPLEXES INCOMPLETE LEFT BUNDLE BRANCH BLOCK BORDERLINE ECG WHEN COMPARED WITH ECG OF 17-SEP-2018 11:26, NO SIGNIFICANT CHANGE WAS FOUND Confirmed by SINDY GILBERT, JAY JAY ([id number]) on 10/01/2018 1:46:47 PM Referred By: Confirmed By:JAY JAY CALLAHAN MD
[2018-10-01] MEDS: ALBUMIN HUMAN 25% 12.5 GM/50 ML VIAL IVPB SCH ×4 (14:00→16:29)
[2018-10-01] MEDS: HEPARIN NA (PORCINE) 5,000 UNITS/ML 1ML VIAL SQ SCH ×2 (14:45→21:38)
--- NOTE | 2018-10-01 15:47 | PN ---
Physical Exam: SUBJECTIVE: Patient seen and examined at the bedside No overnight events. Attempted to wean down highflow from 60L and Fio2 of 74% to 40L with drop in O2 below 90. OBJECTIVE: Vital Signs Period Temp Pulse Resp BP Sys/Bansal Pulse Ox Last 24 Hr 97.5 F-98.8 F 49-77 14-22 133-198/55-79 93-98 GENERAL: The patient is awake, alert, and fully oriented, in no acute distress. HEAD: Normal with no signs of trauma. EYES: PERRL, extraocular movements intact, sclera anicteric, conjunctiva clear. No ptosis. ENT: Ears normal, nares patent, oropharynx clear without exudates, moist mucous membranes. NECK: Trachea midline, full range of motion, supple. LUNGS: Breath sounds equal, clear to auscultation bilaterally, no wheezes, no crackles, no accessory muscle use. On high flow HEART: Regular rate and rhythm, S1, S2 without murmur, rub or gallop. ABDOMEN: Soft, nontender, nondistended, normoactive bowel sounds, no guarding, no rebound, no hepatosplenomegaly, no masses. EXTREMITIES: 2+ pulses, warm, well-perfused, no edema. NEUROLOGICAL: Cranial nerves II through XII grossly intact. Normal speech, gait not observed. PSYCH: Normal mood, normal affect. SKIN: Warm, dry, normal turgor, no rashes or lesions noted Laboratory Results - last 24 hr 09/30/18 10/01/18 10/01/18 22:25 02:24 05:04 WBC 17.5 H RBC 2.81 L Hgb 7.9 L Hct 24.0 L MCV 85.5 MCH 28.0 MCHC 32.7 RDW 14.7 Plt Count 239 MPV 8.3 Absolute Neuts (auto) 16.8 H Neutrophils % 95.8 H Neutrophils % (Manual) 98.0 H Band Neutrophils % 0.0 Lymphocytes % 1.2 L Lymphocytes % (Manual) 1.0 L D Monocytes % 2.9 L D Monocytes % (Manual) 1 L Eosinophils % 0.0 D Eosinophils % (Manual) 0.0 D Basophils % 0.1 Basophils % (Manual) 0.0 Myelocytes % (Man) 0 Promyelocytes % (Man) 0 Blast Cells % (Manual) 0 Nucleated RBC % 0 Metamyelocytes 0 Hypochromia 0 Platelet Estimate Normal Polychromasia 0 Poikilocytosis 0 Anisocytosis 1+ Microcytosis 1+ Macrocytosis 0 Sodium Potassium Chloride Carbon Dioxide Anion Gap BUN Creatinine Est GFR (CKD-EPI)AfAm Est GFR (CKD-EPI)NonAf POC Glucometer 378 249 Random Glucose Calcium Total Bilirubin AST ALT Alkaline Phosphatase Total Protein Albumin 10/01/18 10/01/18 10/01/18 05:04 05:53 11:17 WBC RBC Hgb Hct MCV MCH MCHC RDW Plt Count MPV Absolute Neuts (auto) Neutrophils % Neutrophils % (Manual) Band Neutrophils % Lymphocytes % Lymphocytes % (Manual) Monocytes % Monocytes % (Manual) Eosinophils % Eosinophils % (Manual) Basophils % Basophils % (Manual) Myelocytes % (Man) Promyelocytes % (Man) Blast Cells % (Manual) Nucleated RBC % Metamyelocytes Hypochromia Platelet Estimate Polychromasia Poikilocytosis Anisocytosis Microcytosis Macrocytosis Sodium 136 Potassium 4.0 Chloride 97 L Carbon Dioxide 30 Anion Gap 9 BUN 140.2 H* Creatinine 3.4 H Est GFR (CKD-EPI)AfAm 20.04 Est GFR (CKD-EPI)NonAf 17.29 POC Glucometer 196 189 Random Glucose 202 H Calcium 7.8 L Total Bilirubin 0.4 AST 40 H ALT 37 Alkaline Phosphatase 181 H Total Protein 5.5 L Albumin 1.8 L Active Medications Generic Name Dose Route Start Last Admin Trade Name Freq PRN Reason Stop Dose Admin Artificial Tears 2 drop 09/20/18 16:13 Artificial Tears OU Q8H PRN DRY EYES Atorvastatin Calcium 20 mg 09/17/18 22:00 09/30/18 22:08 Lipitor - PO 20 mg HS [facility] Administration Calcium Acetate 667 mg 09/25/18 17:30 10/01/18 12:00 Phoslo - PO 667 mg TIDCM [facility] Administration Clonidine 0.1 mg 09/30/18 22:00 10/01/18 09:01 Catapres - PO 0.1 mg BID [facility] Administration Heparin Sodium (Porcine) 5,000 unit 10/01/18 14:45 Heparin - SQ TID [facility] Piperacillin Sod/Tazobactam 50 mls @ 100 mls/hr 09/26/18 13:45 10/01/18 09:01 Sod 2.25 gm/ Dextrose IVPB 100 mls/hr Q8H-IV [facility] Administration Protocol Sodium Chloride 250 mls @ 3,000 mls/hr 10/01/18 11:50 Normal Saline - IV 10/02/18 11:50 PRN PRN Hypotension during Dialysis Sodium Chloride 250 mls @ 3,000 mls/hr 10/01/18 11:52 Normal Saline - IV 10/02/18 11:52 PRN PRN Hypotension during Dialysis Insulin Aspart 1 vial 09/17/18 16:30 10/01/18 11:24 Novolog Vial Sliding Scale - SQ 3 units ACHS [facility] Administration Protocol Insulin Detemir 10 units 09/17/18 22:00 09/30/18 22:28 Levemir Vial SQ 10 unit HS [facility] Administration Labetalol HCl 400 mg 09/19/18 10:40 10/01/18 09:01 Normodyne - PO 400 mg BID [facility] Administration Methadone HCl 40 mg/ Methadone 60 mg 09/27/18 06:30 10/01/18 05:49 HCl 20 mg PO 60 mg DAILY@0600 [facility] Administration Methylprednisolone Sodium Succinate 40 mg 09/26/18 15:00 10/01/18 14:16 Solu-Medrol - IVPUSH 40 mg Q6H-IV [facility] Administration Pantoprazole Sodium 40 mg 10/01/18 10:00 10/01/18 09:01 Protonix - PO 40 mg DAILY [facility] Administration Sodium Chloride 2 spray 09/23/18 15:50 09/23/18 22:20 [place] Nasal [place] - NS 2 spray Q8H PRN Administration NASAL CONGESTION ASSESSMENT/PLAN: 68 year old male with a past medical history of hypertension, insulin dependent diabetes, hyperlipidemia, NPH, UTI and R sided lung CA s/p resection many years ago (benign according to daughter) was brought to the hospital for shortness of breath and admitted for treatment of acute hypoxic respiratory failure 2/2 CHF exacerbation and pneumonia Considering autoimmune path at this time, rheum markers neg, pending anti histone antibody and Hep panel HIV neg Attempted to wean down highflow from 60L and Fio2 of 74% to 40L with drop in O2 below 90. Continue to wean off of high flow with goal O2 >90% BUN and CR show mild improvement after HD however, no HD yesterday and BUN and Cr rising. As per nephro, HD again today and biopsy of kidney likely Cardiovascular -patient is being treated for diastolic CHF exacerbation -monitor daily weights/I's/O's -Discontinue lasix drip as per nephro -does not appear that this is helping resolve patient's overloaded status, may need dialysis -echo EF 65, RV pressure 32, no significant abnormalities -discontinue hydralazine for possible drug induced lupus -cardiology following Pulmonary - ICU and monitor on high flow, on 60lpm 80% Fio2 -treating for possible bilateral pneumonia -solumedrol 40q6h on zosyn -ID consultation -CXR in AM -duonebs Renal -patient has azotemia and worsening of his chronic kidney disease -HD started yesterday, will continue today and tmr as per nephro -repeat BMP in AM -renal following -HD today -renal biopsy pending FEN -no standing fluids -replete lytes as necessary in AM DVT prophylaxis heparin 5000 units TID Disposition -monitor in ICU Visit type - Emergency Visit Emergency Visit: No - New Patient This patient is new to me today: No - Critical Care Critical Care patient: Yes Total Critical Care Time (in minutes): 40 Critical Care Statement: The care of this patient involved high complexity decision making to prevent further life threatening deterioration of the patient 's condition and/or to evaluate & treat vital organ system(s) failure or risk of failure.
[2018-10-01 16:12] LABS: HEP B CORE AB, TOT Positive (Negative)
--- NOTE | 2018-10-01 16:16 | PN ---
Progress Note (short form) - Note Progress Note: Renal follow up for BRET Pt seen and examined in the ICU awake and alert on high flow O2 feels better has mild sob making urine Vital Signs Temperature 97.5 F L 10/01/18 16:00 Pulse Rate 57 L 10/01/18 16:00 Respiratory Rate 18 10/01/18 16:00 Blood Pressure 135/64 10/01/18 16:00 O2 Sat by Pulse Oximetry (%) 96 10/01/18 09:00 Intake & Output 09/28/18 09/29/18 09/30/18 10/01/18 23:59 23:59 23:59 23:59 Intake Total 220 620 820 465 Output Total 2250 850 1490 1000 Balance -2030 -230 -670 -535 Weight 89.8 kg 87.1 kg 82.299 kg 82.69 kg NAD RRR, no M/R BS improved soft, obese NT/ND CBC, BMP 10/01/18 05:04 10/01/18 05:04 Current Medications Artificial Tears (Artificial Tears) 2 drop OU Q8H PRN PRN Reason: DRY EYES Atorvastatin Calcium (Lipitor -) 20 mg PO HS [facility] Last Admin: 09/30/18 22:08 Dose: 20 mg Calcium Acetate (Phoslo -) 667 mg PO TIDCM [facility] Last Admin: 10/01/18 12:00 Dose: 667 mg Clonidine (Catapres -) 0.1 mg PO BID [facility] Last Admin: 10/01/18 09:01 Dose: 0.1 mg Heparin Sodium (Porcine) (Heparin -) 5,000 unit SQ TID [facility] Piperacillin Sod/Tazobactam (Sod 2.25 gm/ Dextrose) 50 mls @ 100 mls/hr IVPB Q8H-IV [facility]; Protocol Last Admin: 10/01/18 09:01 Dose: 100 mls/hr Sodium Chloride (Normal Saline -) 250 mls @ 3,000 mls/hr IV PRN PRN PRN Reason: Hypotension during Dialysis Stop: 10/02/18 11:50 Sodium Chloride (Normal Saline -) 250 mls @ 3,000 mls/hr IV PRN PRN PRN Reason: Hypotension during Dialysis Stop: 10/02/18 11:52 Insulin Aspart (Novolog Vial Sliding Scale -) 1 vial SQ [facility]; Protocol Last Admin: 10/01/18 11:24 Dose: 3 units Insulin Detemir (Levemir Vial) 10 units SQ HS [facility] Last Admin: 09/30/18 22:28 Dose: 10 unit Labetalol HCl (Normodyne -) 400 mg PO BID [facility] Last Admin: 10/01/18 09:01 Dose: 400 mg Methadone HCl 40 mg/ Methadone (HCl 20 mg) 60 mg PO DAILY@0600 [facility] Last Admin: 10/01/18 05:49 Dose: 60 mg Methylprednisolone Sodium Succinate (Solu-Medrol -) 40 mg IVPUSH Q6H-IV [facility] Last Admin: 10/01/18 14:16 Dose: 40 mg Pantoprazole Sodium (Protonix -) 40 mg PO DAILY [facility] Last Admin: 10/01/18 09:01 Dose: 40 mg Sodium Chloride ([place] Nasal [place] -) 2 spray NS Q8H PRN PRN Reason: NASAL CONGESTION Last Admin: 09/23/18 22:20 Dose: 2 spray CXR- left perihilar infiltrate, large right effusion with infiltrate ECHO- normal LV/RV function, trace MR 68 year old gentleman with hx of of hypertension, DM on insulin, PVD s/ p Le stents, BPH, Hx of Lung cancer s/p resection who presented with SOB and noted to have BUN/Cr of 79/3.2. #Acute shortness of breath form diastolic HF + PNA #Peripheral edema #Acute on chronic renal insufficiency #Anemia #Hypertension #BPH for dialysis today as BUN/Cr remain elevated and CXR shows persistent congestion will reaccess for additional HD and UF tomorrow will need kidney biopsy UPCR is 3.2, CHICHI negative, ANCA is negative, anti-histone ab pending Urine Legionella Ag negative CT of the chest consistent with PNA Renal imgaing showed no obstruction but did show lesion on spleen, would need CT with contrast to evalulate but should wait until renal function is improved Trend daily weights continue labetalol Discontinue Cardura and amlodipine (can cause peripheral edema as medication side effect) BP remains elevated, start Clonidine for BP control, 0.1mg BID can titrate clonidine based on BP s/p dialysis Dariusz Iniguez DO
--- NOTE | 2018-10-01 16:32 | PN ---
Progress Note, Physician History of Present Illness: AWAKE, ALERT SEATED IN BED RECEIVING HD DENIES DYSPNEA BREATHING NON LABORED ON HIGH FLOW O2 AFEBRILE WBC ELEVATED BC (-) - Current Medication List Current Medications: Active Medications Artificial Tears (Artificial Tears) 2 drop OU Q8H PRN PRN Reason: DRY EYES Atorvastatin Calcium (Lipitor -) 20 mg PO HS [facility] Last Admin: 09/30/18 22:08 Dose: 20 mg Calcium Acetate (Phoslo -) 667 mg PO TIDCM [facility] Last Admin: 10/01/18 12:00 Dose: 667 mg Clonidine (Catapres -) 0.1 mg PO BID [facility] Last Admin: 10/01/18 09:01 Dose: 0.1 mg Heparin Sodium (Porcine) (Heparin -) 5,000 unit SQ TID [facility] Piperacillin Sod/Tazobactam (Sod 2.25 gm/ Dextrose) 50 mls @ 100 mls/hr IVPB Q8H-IV [facility]; Protocol Last Admin: 10/01/18 09:01 Dose: 100 mls/hr Sodium Chloride (Normal Saline -) 250 mls @ 3,000 mls/hr IV PRN PRN PRN Reason: Hypotension during Dialysis Stop: 10/02/18 11:50 Sodium Chloride (Normal Saline -) 250 mls @ 3,000 mls/hr IV PRN PRN PRN Reason: Hypotension during Dialysis Stop: 10/02/18 11:52 Insulin Aspart (Novolog Vial Sliding Scale -) 1 vial SQ [facility]; Protocol Last Admin: 10/01/18 11:24 Dose: 3 units Insulin Detemir (Levemir Vial) 10 units SQ [facility] Last Admin: 09/30/18 22:28 Dose: 10 unit Labetalol HCl (Normodyne -) 400 mg PO BID [facility] Last Admin: 10/01/18 09:01 Dose: 400 mg Methadone HCl 40 mg/ Methadone (HCl 20 mg) 60 mg PO DAILY@0600 [facility] Last Admin: 10/01/18 05:49 Dose: 60 mg Methylprednisolone Sodium Succinate (Solu-Medrol -) 40 mg IVPUSH Q6H-IV [facility] Last Admin: 10/01/18 14:16 Dose: 40 mg Pantoprazole Sodium (Protonix -) 40 mg PO DAILY [facility] Last Admin: 10/01/18 09:01 Dose: 40 mg Sodium Chloride ([place] Nasal [place] -) 2 spray NS Q8H PRN PRN Reason: NASAL CONGESTION Last Admin: 09/23/18 22:20 Dose: 2 spray - Objective Vital Signs: Vital Signs Temperature 97.5 F L 10/01/18 16:00 Pulse Rate 57 L 10/01/18 16:00 Respiratory Rate 18 10/01/18 16:00 Blood Pressure 135/64 10/01/18 16:00 O2 Sat by Pulse Oximetry (%) 96 10/01/18 09:00 Constitutional: Yes: No Distress Cardiovascular: Yes: Regular Rate and Rhythm, S1, S2 Respiratory: Yes: Diminished Gastrointestinal: Yes: Normal Bowel Sounds, Soft. No: Tenderness Edema: Yes Edema: LLE: 1+, RLE: 1+ Labs: CBC, BMP 10/01/18 05:04 10/01/18 05:04 INR, PTT INR 1.11 (0.83-1.09) H 09/17/18 12:23 Assessment/Plan PNEUMONIA/ CHF IMPROVED RENAL FAILURE LEUKOCYTOSIS CONTINUE ZOSYN/ STEROIDS
[2018-10-01] MEDS: ATORVASTATIN CA 20 MG TABLET (FP) PO SCH (21:22)
[2018-10-01] MEDS: INSULIN (LEVEMIR) 100 UNITS/ML UNITS SQ SCH (21:37)
[2018-10-02] MEDS ORDERED: DEXTROSE 5%-WATER - 50 ML IVPB ONE ×3 (01:16→17:05)
[2018-10-02] MEDS ORDERED: PIPERACILLIN/TAZOBACTAM 2.25 GM VIAL IVPB ONE ×3 (01:16→17:05)
[2018-10-02] MEDS: PIPERACILLIN/TAZOB 2.25 GM 2.25 GM in DEXTROSE 5%-WATER - 50 ML IVPB SCH ×3 (01:37→17:10)
[2018-10-02] MEDS: methylPREDNISolone NA SUCC 40 MG/1 ML VIAL IVPUSH SCH ×4 (04:00→21:34)
[2018-10-02] MEDS ORDERED: METHADONE HCL 10 MG TABLET ONE (05:49)
[2018-10-02] MEDS ORDERED: METHADONE HCL 40 MG DISPERSABLE TABLET ONE (05:50)
[2018-10-02] MEDS: HEPARIN NA (PORCINE) 5,000 UNITS/ML 1ML VIAL SQ SCH (05:55)
[2018-10-02] MEDS: METHADONE 40 MG, METHADONE 20 MG PO SCH (05:55)
[2018-10-02] MEDS: INSULIN SLIDING SCALE (NOVOLOG) 1 VIAL SQ SCH ×4 (06:01→21:35)
[2018-10-02] MEDS: CALCIUM ACETATE 667 MG CAPSULE (FP) PO SCH ×3 (08:06→17:10)
[2018-10-02] MEDS ORDERED: PT OWN MED DRAWER 7, Y5N ONE (08:18)
[2018-10-02 08:46] LABS: HEMATOCRIT 26.5 % (35.4-49); HEMOGLOBIN 8.7 GM/dL (11.7-16.9); MCH 28.1 pg (25.7-33.7); MCHC 32.7 g/dl (32.0-35.9); MEAN CELL VOLUME 86.2 fl (80-96); MEAN PLT VOLUME 8.5 fl (7.5-11.1); RBC 3.08 M/mm3 (4.00-5.60); RDW 14.3 % (11.9-15.9); WHITE BLOOD COUNT 16.6 K/mm3 (4.0-10.0)
[2018-10-02] MEDS: PANTOPRAZOLE 40 MG TABLET (FP) PO SCH (09:02)
[2018-10-02] MEDS: LABETALOL HCL 200 MG TABLET (FP) PO SCH ×2 (09:02→21:37)
[2018-10-02] MEDS: RANITIDINE HCL 150 MG TABLET (FP) PO SCH ×2 (09:02→21:38)
[2018-10-02] MEDS: hydrALAZINE HCL 25 MG TABLET (FP) PO SCH ×3 (09:07→21:37)
[2018-10-02] MEDS: cloNIDine HCL 0.1 MG TABLET PO SCH ×2 (09:07→21:37)
[2018-10-02 09:11] LABS: ALBUMIN 1.9 g/dl (3.4-5.0); BILIRUBIN,TOTAL 0.4 mg/dL (0.2-1); BLOOD UREA NITROGEN 88.9 mg/dL (7-18); CALCIUM 7.9 mg/dL (8.5-10.1); CREATININE 2.6 mg/dL (0.55-1.3); MAGNESIUM 2.7 mg/dL (1.8-2.4); PHOSPHOROUS 5.3 mg/dL (2.5-4.9); POTASSIUM 3.8 mmol/L (3.5-5.1); TOT PROT 5.5 g/dl (6.4-8.2)
[2018-10-02 09:15] LABS: PLATELET COUNT 250 K/MM3 (134-434)
--- NOTE | 2018-10-02 11:04 | PN ---
Progress Note (short form) - Note Progress Note: s: sob improving, no chest pain, palps, dizziness. Current Medications Artificial Tears (Artificial Tears) 2 drop OU Q8H PRN PRN Reason: DRY EYES Atorvastatin Calcium (Lipitor -) 20 mg PO HS [facility] Last Admin: 10/01/18 21:22 Dose: 20 mg Calcium Acetate (Phoslo -) 667 mg PO TIDCM [facility] Last Admin: 10/02/18 08:06 Dose: 667 mg Clonidine (Catapres -) 0.1 mg PO BID [facility] Last Admin: 10/02/18 09:07 Dose: 0.1 mg Heparin Sodium (Porcine) (Heparin -) 5,000 unit SQ TID [facility] Last Admin: 10/02/18 05:55 Dose: 5,000 unit Heparin Sodium (Porcine) (Heparin -) 500 unit IVPUSH Q1H [facility] Stop: 10/02/18 11:16 Heparin Sodium (Porcine) (Heparin -) 500 unit IVPUSH ONCE ONE Stop: 10/02/18 09:12 Hydralazine HCl (Apresoline -) 25 mg PO TID [facility] Last Admin: 10/02/18 09:07 Dose: 25 mg Piperacillin Sod/Tazobactam (Sod 2.25 gm/ Dextrose) 50 mls @ 100 mls/hr IVPB Q8H-IV [facility]; Protocol Last Admin: 10/02/18 09:02 Dose: 100 mls/hr Sodium Chloride (Normal Saline -) 250 mls @ 3,000 mls/hr IV PRN PRN PRN Reason: Hypotension during Dialysis Stop: 10/02/18 11:50 Sodium Chloride (Normal Saline -) 250 mls @ 3,000 mls/hr IV PRN PRN PRN Reason: Hypotension during Dialysis Stop: 10/02/18 11:52 Sodium Chloride (Normal Saline -) 250 mls @ 3,000 mls/hr IV PRN PRN PRN Reason: Hypotension during Dialysis Stop: 10/03/18 09:11 Insulin Aspart (Novolog Vial Sliding Scale -) 1 vial SQ [facility]; Protocol Last Admin: 10/02/18 06:01 Dose: 3 units Insulin Detemir (Levemir Vial) 10 units SQ [facility] Last Admin: 10/01/18 21:37 Dose: 10 unit Labetalol HCl (Normodyne -) 400 mg PO BID [facility] Last Admin: 10/02/18 09:02 Dose: 400 mg Methadone HCl 40 mg/ Methadone (HCl 20 mg) 60 mg PO DAILY@0600 [facility] Last Admin: 10/02/18 05:55 Dose: 60 mg Methylprednisolone Sodium Succinate (Solu-Medrol -) 40 mg IVPUSH Q6H-IV [facility] Last Admin: 10/02/18 09:02 Dose: 40 mg Pantoprazole Sodium (Protonix -) 40 mg PO DAILY [facility] Last Admin: 10/02/18 09:02 Dose: 40 mg Ranitidine HCl (Zantac -) 150 mg PO BID [facility] Last Admin: 10/02/18 09:02 Dose: 150 mg Sodium Chloride ([place] Nasal [place] -) 2 spray NS Q8H PRN PRN Reason: NASAL CONGESTION Last Admin: 09/23/18 22:20 Dose: 2 spray Vital Signs Period Temp Pulse Resp BP Sys/Bansal Pulse Ox Last 24 Hr 97.3 F-98.8 F 49-67 11-19 126-199/55-97 93-97 Constitutional: Yes: Well Nourished, No Distress, Calm Cardiovascular: Yes: Regular Rate and Rhythm, S1, S2. No: JVD, Gallop, Murmur Respiratory: Yes: Regular, Rales (bases). No: Accessory Muscle Use Edema: Yes (1+ pedal) Neurological: Yes: Alert, Oriented Psychiatric: No: Agitated no jaundice, diaphoresis Assessment/Plan mibi 2015 no ischemia, nl EF EKG: sinus, PVC, no ischemic changes echo 09/2018 nl LV function, mild MAC, tr MR, RVSP 32 mmHg CXR: extensive bilat infiltrates with R effusion, worse 68M h/o HTN, DM, HLD, PAD s/p femoral stent, prior smoker, R sided lung ca s/p partial resection p/w shortness of breath: Shortness of breath, PNA, acute diastolic CHF exacerbation: - likely multifactorial - h/o lung ca s/p resection, findings concerning for PNA - abx, nebs per primary, pulm - elevated BNP (7K) with congestion on CXR, likely component of HF - echo nl LV function, remainder unremarkable, no pulm HTN noted - Clinically improved w/ HD--vol mgmt plan per renal BRET on CKD: started on HD: -likely component of cardiorenal syndrome HTN: - holding home diuretic, valsartan - amlodipine stopped for edema - cont labetolol, clonidine - BP not controlled - hydralazine started this AM - monitor BP HLD: - cont statin PAD: - cont statin, aspirin
--- NOTE | 2018-10-02 11:42 | PN ---
Progress Note (short form) - Note Progress Note: events noted pt in ICU awake and alert on high flow O2 feeling well no complaints Vital Signs - 24 hr 10/01/18 10/01/18 10/01/18 12:00 12:10 12:15 Temperature 97.7 F 98.8 F Pulse Rate 60 53 L 53 L Respiratory 14 18 18 Rate Blood Pressure 179/59 H 173/68 H 185/62 H O2 Sat by Pulse Oximetry (%) 10/01/18 10/01/18 10/01/18 12:45 13:15 13:45 Temperature Pulse Rate 51 L 50 L 51 L Respiratory 18 18 18 Rate Blood Pressure 162/59 L 162/59 L 167/56 L O2 Sat by Pulse Oximetry (%) 10/01/18 10/01/18 10/01/18 14:00 14:15 14:45 Temperature 97.5 F L Pulse Rate 49 L 53 L 51 L Respiratory 15 18 18 Rate Blood Pressure 168/55 L 152/67 133/63 O2 Sat by Pulse Oximetry (%) 10/01/18 10/01/18 10/01/18 15:15 15:45 16:00 Temperature 97.5 F L Pulse Rate 54 L 57 L 57 L Respiratory 18 16 18 Rate Blood Pressure 141/62 141/62 135/64 O2 Sat by Pulse Oximetry (%) 10/01/18 10/01/18 10/01/18 16:15 16:31 18:00 Temperature 97.3 F L Pulse Rate 58 L 60 67 Respiratory 17 17 17 Rate Blood Pressure 126/64 141/67 162/97 O2 Sat by Pulse Oximetry (%) 10/01/18 10/01/18 10/01/18 20:00 20:02 22:00 Temperature Pulse Rate 67 64 Respiratory 19 13 Rate Blood Pressure 161/66 188/64 H O2 Sat by Pulse 93 L Oximetry (%) 10/02/18 10/02/18 10/02/18 00:00 02:00 04:00 Temperature Pulse Rate 61 56 L 53 L Respiratory 13 11 11 Rate Blood Pressure 186/65 H 188/60 H 130/87 O2 Sat by Pulse Oximetry (%) 10/02/18 10/02/18 10/02/18 06:00 08:00 08:40 Temperature 97.7 F Pulse Rate 57 L 60 59 L Respiratory 12 17 Rate Blood Pressure 195/70 H 199/66 H O2 Sat by Pulse 93 L Oximetry (%) 10/02/18 10/02/18 08:58 10:00 Temperature 97.8 F Pulse Rate 57 L Respiratory 18 Rate Blood Pressure 176/59 H O2 Sat by Pulse 97 Oximetry (%) Current Medications Generic Name Dose Route Start Last Admin Trade Name Freq PRN Reason Stop Dose Admin Artificial Tears 2 drop 09/20/18 16:13 Artificial Tears OU Q8H PRN DRY EYES Atorvastatin Calcium 20 mg 09/17/18 22:00 10/01/18 21:22 Lipitor - PO 20 mg HS GREGORY Administration Calcium Acetate 667 mg 09/25/18 17:30 10/02/18 08:06 Phoslo - PO 667 mg TIDCM GREGORY Administration Clonidine 0.1 mg 09/30/18 22:00 10/02/18 09:07 Catapres - PO 0.1 mg BID GREGORY Administration Heparin Sodium (Porcine) 5,000 unit 10/01/18 14:45 10/02/18 05:55 Heparin - SQ 5,000 unit TID GREGORY Administration Heparin Sodium (Porcine) 500 unit 10/02/18 09:15 Heparin - IVPUSH 10/02/18 11:16 Q1H GREGORY Heparin Sodium (Porcine) 500 unit 10/02/18 09:11 Heparin - IVPUSH 10/02/18 09:12 ONCE ONE Hydralazine HCl 25 mg 10/02/18 08:25 10/02/18 09:07 Apresoline - PO 25 mg TID GREGORY Administration Piperacillin Sod/Tazobactam 50 mls @ 100 mls/hr 09/26/18 13:45 10/02/18 09:02 Sod 2.25 gm/ Dextrose IVPB 100 mls/hr Q8H-IV [facility] Administration Protocol Sodium Chloride 250 mls @ 3,000 mls/hr 10/01/18 11:50 Normal Saline - IV 10/02/18 11:50 PRN PRN Hypotension during Dialysis Sodium Chloride 250 mls @ 3,000 mls/hr 10/01/18 11:52 Normal Saline - IV 10/02/18 11:52 PRN PRN Hypotension during Dialysis Sodium Chloride 250 mls @ 3,000 mls/hr 10/02/18 09:11 Normal Saline - IV 10/03/18 09:11 PRN PRN Hypotension during Dialysis Insulin Aspart 1 vial 09/17/18 16:30 10/02/18 06:01 Novolog Vial Sliding Scale - SQ 3 units ACHS GREGORY Administration Protocol Insulin Detemir 10 units 09/17/18 22:00 10/01/18 21:37 Levemir Vial SQ 10 unit HS GREGORY Administration Labetalol HCl 400 mg 09/19/18 10:40 10/02/18 09:02 Normodyne - PO 400 mg BID GREGORY Administration Methadone HCl 40 mg/ Methadone 60 mg 09/27/18 06:30 10/02/18 05:55 HCl 20 mg PO 60 mg DAILY@0600 G[facility] Administration Methylprednisolone Sodium Succinate 40 mg 09/26/18 15:00 10/02/18 09:02 Solu-Medrol - IVPUSH 40 mg Q6H-IV G[facility] Administration Pantoprazole Sodium 40 mg 10/01/18 10:00 10/02/18 09:02 Protonix - PO 40 mg DAILY G[facility] Administration Ranitidine HCl 150 mg 10/02/18 10:00 10/02/18 09:02 Zantac - PO 150 mg BID G[facility] Administration Sodium Chloride 2 spray 09/23/18 15:50 09/23/18 22:20 [place]al [place] - NS 2 spray Q8H PRN Administration NASAL CONGESTION Laboratory Results - last 24 hr 09/27/18 10/01/18 10/01/18 15:20 16:37 21:26 WBC RBC Hgb Hct MCV MCH MCHC RDW Plt Count MPV Sodium Potassium Chloride Carbon Dioxide Anion Gap BUN Creatinine Est GFR (CKD-EPI)AfAm Est GFR (CKD-EPI)NonAf POC Glucometer 232 318 Random Glucose Calcium Phosphorus Magnesium Total Bilirubin AST ALT Alkaline Phosphatase Total Protein Albumin Hepatitis A Ab Total No Result Required. Hep Bs Antigen Negative Hep Bs Antibody No Result Required. Hep B Core Total Ab Positive H Hep B Core IgM Ab No Result Required. 10/02/18 10/02/18 10/02/18 05:46 08:13 08:13 WBC 16.6 H RBC 3.08 L Hgb 8.7 L Hct 26.5 L MCV 86.2 MCH 28.1 MCHC 32.7 RDW 14.3 Plt Count 250 MPV 8.5 Sodium 137 Potassium 3.8 Chloride 98 Carbon Dioxide 32 Anion Gap 7 L BUN 88.9 H Creatinine 2.6 H Est GFR (CKD-EPI)AfAm 27.72 Est GFR (CKD-EPI)NonAf 23.91 POC Glucometer 166 Random Glucose 111 H Calcium 7.9 L Phosphorus 5.3 H Magnesium 2.7 H Total Bilirubin 0.4 AST 35 ALT 39 Alkaline Phosphatase 182 H Total Protein 5.5 L Albumin 1.9 L Hepatitis A Ab Total Hep Bs Antigen Hep Bs Antibody Hep B Core Total Ab Hep B Core IgM Ab 10/02/18 10:49 WBC RBC Hgb Hct MCV MCH MCHC RDW Plt Count MPV Sodium Potassium Chloride Carbon Dioxide Anion Gap BUN Creatinine Est GFR (CKD-EPI)AfAm Est GFR (CKD-EPI)NonAf POC Glucometer 92 Random Glucose Calcium Phosphorus Magnesium Total Bilirubin AST ALT Alkaline Phosphatase Total Protein Albumin Hepatitis A Ab Total Hep Bs Antigen Hep Bs Antibody Hep B Core Total Ab Hep B Core IgM Ab S1 s2 RRR Lungs decreased abd- soft, NT JVD+ edema+ PLAN CHF--on HD leucocytosis-- blood cultures , ua and urine culture-- negative ID eval noted-- on Zosyn on solumedrol no diarrhea needs dialysis today per renal -- spoke with dr tolliver may need renal biospy per renal -- possibly on has splenic lesion-- can not do contrast imaging due to decreased renal function Problem List - Problems (1) BRET (acute kidney injury) Code(s): N17.9 - ACUTE KIDNEY FAILURE, UNSPECIFIED (2) Acute and chronic respiratory failure Code(s): J96.20 - ACUTE AND CHR RESP FAILURE, UNSP W HYPOXIA OR HYPERCAPNIA (3) [id number] kidney injury Code(s): N17.9 - ACUTE KIDNEY FAILURE, UNSPECIFIED; N18.9 - CHRONIC KIDNEY DISEASE, UNSPECIFIED (4) CHF exacerbation Code(s): I50.9 - HEART FAILURE, UNSPECIFIED (5) Diabetes Code(s): E11.9 - TYPE 2 DIABETES MELLITUS WITHOUT COMPLICATIONS
--- NOTE | 2018-10-02 11:58 | PN ---
Progress Note (short form) - Note Progress Note: Renal follow up for BRET Pt seen and examined in the ICU awake and alert no acute complaints on high flow O2 for HD today Vital Signs Temperature 97.8 F 10/02/18 10:00 Pulse Rate 57 L 10/02/18 10:00 Respiratory Rate 18 10/02/18 10:00 Blood Pressure 176/59 H 10/02/18 10:00 O2 Sat by Pulse Oximetry (%) 97 10/02/18 08:58 Intake & Output 09/29/18 09/30/18 10/01/18 10/02/18 23:59 23:59 23:59 23:59 Intake Total 620 820 465 100 Output Total 850 1490 1000 Balance -230 670 535 100 Weight 87.1 kg 82.299 kg 82.69 kg NAD RRR, no M/R BS improved no edema CBC, BMP 10/02/18 08:13 10/02/18 08:13 Current Medications Artificial Tears (Artificial Tears) 2 drop OU Q8H PRN PRN Reason: DRY EYES Atorvastatin Calcium (Lipitor -) 20 mg PO HS GREGORY Last Admin: 10/01/18 21:22 Dose: 20 mg Calcium Acetate (Phoslo -) 667 mg PO TIDCM GREGORY Last Admin: 10/02/18 08:06 Dose: 667 mg Clonidine (Catapres -) 0.1 mg PO BID G[facility] Last Admin: 10/02/18 09:07 Dose: 0.1 mg Heparin Sodium (Porcine) (Heparin -) 5,000 unit SQ TID [facility] Last Admin: 10/02/18 05:55 Dose: 5,000 unit Heparin Sodium (Porcine) (Heparin -) 500 unit IVPUSH Q1H [facility] Stop: 10/02/18 11:16 Heparin Sodium (Porcine) (Heparin -) 500 unit IVPUSH ONCE ONE Stop: 10/02/18 09:12 Hydralazine HCl (Apresoline -) 25 mg PO TID [facility] Last Admin: 10/02/18 09:07 Dose: 25 mg Piperacillin Sod/Tazobactam (Sod 2.25 gm/ Dextrose) 50 mls @ 100 mls/hr IVPB Q8H-IV [facility]; Protocol Last Admin: 10/02/18 09:02 Dose: 100 mls/hr Sodium Chloride (Normal Saline -) 250 mls @ 3,000 mls/hr IV PRN PRN PRN Reason: Hypotension during Dialysis Stop: 10/03/18 09:11 Insulin Aspart (Novolog Vial Sliding Scale -) [address] [facility]; Protocol Last Admin: 10/02/18 06:01 Dose: 3 units Insulin Detemir (Levemir Vial) 10 units SQ HS [facility] Last Admin: 10/01/18 21:37 Dose: 10 unit Labetalol HCl (Normodyne -) 400 mg PO BID [facility] Last Admin: 10/02/18 09:02 Dose: 400 mg Methadone HCl 40 mg/ Methadone (HCl 20 mg) 60 mg PO DAILY@0600 [facility] Last Admin: 10/02/18 05:55 Dose: 60 mg Methylprednisolone Sodium Succinate (Solu-Medrol -) 40 mg IVPUSH Q6H-IV [facility] Last Admin: 10/02/18 09:02 Dose: 40 mg Pantoprazole Sodium (Protonix -) 40 mg PO DAILY [facility] Last Admin: 10/02/18 09:02 Dose: 40 mg Ranitidine HCl (Zantac -) 150 mg PO BID [facility] Last Admin: 10/02/18 09:02 Dose: 150 mg Sodium Chloride ([place] -) 2 spray NS Q8H PRN PRN Reason: NASAL CONGESTION Last Admin: 09/23/18 22:20 Dose: 2 spray 68 year old gentleman with hx of of hypertension, DM on insulin, PVD s/ p Le stents, BPH, Hx of Lung cancer s/p resection who presented with SOB and noted to have BUN/Cr of 79/3.2. #Acute shortness of breath form diastolic HF + PNA #Peripheral edema #Acute on chronic renal insufficiency #Anemia #Hypertension #BPH for HD today with aggressive UF HD catheter can be removed today will need kidney biopsy, will discuss with IR, possibly tomorrow. Hold Heparin in AM UPCR is 3.2, CHICHI negative, ANCA is negative, anti-histone ab pending Urine Legionella Ag negative CT of the chest consistent with PNA Renal imgaing showed no obstruction lesion on spleen, would need CT with contrast to evalulate but should wait until renal function is improved Trend daily weights continue labetalol Discontinue Cardura and amlodipine (can cause peripheral edema as medication side effect) can titrate clonidine based on BP s/p dialysis Dariusz Iniguez DO
--- NOTE | 2018-10-02 12:13 | PN ---
Teaching Attending Note Name of Resident: Skip Day ATTENDING PHYSICIAN STATEMENT I saw and evaluated the patient. I reviewed the resident's note and discussed the case with the resident. I agree with the resident's findings and plan as documented. SUBJECTIVE: Pt seen and examined in the ICU. Remains on HFOT 70% FiO2, 40L/min. States breathing is better today. For HD today. OBJECTIVE: Vital Signs Period Temp Pulse Resp BP Sys/Bansal Pulse Ox Last 24 Hr 97.3 F-97.8 F 49-67 11-19 126-199/55-97 93-97 Intake & Output 09/29/18 09/30/18 10/01/18 10/02/18 23:59 23:59 23:59 23:59 Intake Total 620 820 465 100 Output Total 850 1490 1000 Balance -230 670 -535 100 Weight 87.1 kg 82.299 kg 82.69 kg Gen: mildly tachypneic on HFOT Heart: RRR Lung: decreased breath sounds at the bases Abd: soft, nontender Ext: no edema CBC, BMP 10/02/18 08:13 10/02/18 08:13 Active Medications Artificial Tears (Artificial Tears) 2 drop OU Q8H PRN PRN Reason: DRY EYES Atorvastatin Calcium (Lipitor -) 20 mg PO HS [facility] Last Admin: 10/01/18 21:22 Dose: 20 mg Calcium Acetate (Phoslo -) 667 mg PO TIDCM [facility]REGORY Last Admin: 10/02/18 08:06 Dose: 667 mg Clonidine (Catapres -) 0.1 mg PO BID [facility] Last Admin: 10/02/18 09:07 Dose: 0.1 mg Heparin Sodium (Porcine) (Heparin -) 5,000 unit SQ TID [facility] Last Admin: 10/02/18 05:55 Dose: 5,000 unit Heparin Sodium (Porcine) (Heparin -) 500 unit IVPUSH Q1H [facility]ORY Stop: 10/02/18 11:16 Heparin Sodium (Porcine) (Heparin -) 500 unit IVPUSH ONCE ONE Stop: 10/02/18 09:12 Hydralazine HCl (Apresoline -) 25 mg PO TID [facility]ORY Last Admin: 10/02/18 09:07 Dose: 25 mg Piperacillin Sod/Tazobactam (Sod 2.25 gm/ Dextrose) 50 mls @ 100 mls/hr IVPB Q8H-IV [facility]; Protocol Last Admin: 10/02/18 09:02 Dose: 100 mls/hr Sodium Chloride (Normal Saline -) 250 mls @ 3,000 mls/hr IV PRN PRN PRN Reason: Hypotension during Dialysis Stop: 10/03/18 09:11 Insulin Aspart (Novolog Vial Sliding Scale -) 1 vial SQ ACHS [facility]; Protocol Last Admin: 10/02/18 06:01 Dose: 3 units Insulin Detemir (Levemir Vial) 10 units SQ HS [facility] Last Admin: 10/01/18 21:37 Dose: 10 unit Labetalol HCl (Normodyne -) 400 mg PO BID [facility] Last Admin: 10/02/18 09:02 Dose: 400 mg Methadone HCl 40 mg/ Methadone (HCl 20 mg) 60 mg PO DAILY@0600 [facility] Last Admin: 10/02/18 05:55 Dose: 60 mg Methylprednisolone Sodium Succinate (Solu-Medrol -) 40 mg IVPUSH Q6H-IV [facility] Last Admin: 10/02/18 09:02 Dose: 40 mg Pantoprazole Sodium (Protonix -) 40 mg PO DAILY [facility] Last Admin: 10/02/18 09:02 Dose: 40 mg Ranitidine HCl (Zantac -) 150 mg PO BID [facility] Last Admin: 10/02/18 09:02 Dose: 150 mg Sodium Chloride ([place] Nasal [place] -) 2 spray NS Q8H PRN PRN Reason: NASAL CONGESTION Last Admin: 09/23/18 22:20 Dose: 2 spray ASSESSMENT AND PLAN: Acute Hypoxic Respiratory Failure r/o Acute Pneumonitis/Interstitial Lung Disease r/o Pneumonia Acute on Chronic Diastolic Heart Failure Acute on Chronic Renal Failure requiring HD h/o Lung Ca HTN DM - continue medrol - continue empiric antibiotics - inhaled bronchodilators - lasix, HD per renal - monitor urine output, creatinine - for renal biopsy - taper HFOT to keep SpO2 >90% - PO as tolerated - DVT prophylaxis - continue ICU monitoring critical care time spent in reviewing chart, evaluating patient and formulating plan 35 min
--- NOTE | 2018-10-02 15:38 | PN ---
Physical Exam: SUBJECTIVE: Patient seen and examined at the bedside. No overnight events. States he feels well today and has no complaints OBJECTIVE: Vital Signs Period Temp Pulse Resp BP Sys/Bansal Pulse Ox Last 24 Hr 97.3 F-98.4 F 53-67 11-19 110-199/54-97 93-97 GENERAL: The patient is awake, alert, and fully oriented, in no acute distress. HEAD: Normal with no signs of trauma. EYES: PERRL, extraocular movements intact, sclera anicteric, conjunctiva clear. No ptosis. ENT: Ears normal, nares patent, oropharynx clear without exudates, moist mucous membranes. NECK: Trachea midline, full range of motion, supple. LUNGS: Breath sounds equal, clear to auscultation bilaterally, no wheezes, no crackles, no accessory muscle use. On high flow HEART: Regular rate and rhythm, S1, S2 without murmur, rub or gallop. ABDOMEN: Soft, nontender, nondistended, normoactive bowel sounds, no guarding, no rebound, no hepatosplenomegaly, no masses. EXTREMITIES: 2+ pulses, warm, well-perfused, no edema. NEUROLOGICAL: Cranial nerves II through XII grossly intact. Normal speech, gait not observed. PSYCH: Normal mood, normal affect. SKIN: Warm, dry, normal turgor, no rashes or lesions noted Laboratory Results - last 24 hr 09/27/18 09/27/18 10/01/18 15:20 15:20 16:37 WBC RBC Hgb Hct MCV MCH MCHC RDW Plt Count MPV Sodium Potassium Chloride Carbon Dioxide Anion Gap BUN Creatinine Est GFR (CKD-EPI)AfAm Est GFR (CKD-EPI)NonAf POC Glucometer 232 Random Glucose Calcium Phosphorus Magnesium Total Bilirubin AST ALT Alkaline Phosphatase Total Protein Albumin Histone Antibodies 1.9 H Hepatitis A Ab Total No Result Required. Hep Bs Antigen Negative Hep Bs Antibody No Result Required. Hep B Core Total Ab Positive H Hep B Core IgM Ab No Result Required. 10/01/18 10/02/18 10/02/18 21:26 05:46 08:13 WBC 16.6 H RBC 3.08 L Hgb 8.7 L Hct 26.5 L MCV 86.2 MCH 28.1 MCHC 32.7 RDW 14.3 Plt Count 250 MPV 8.5 Sodium Potassium Chloride Carbon Dioxide Anion Gap BUN Creatinine Est GFR (CKD-EPI)AfAm Est GFR (CKD-EPI)NonAf POC Glucometer 318 166 Random Glucose Calcium Phosphorus Magnesium Total Bilirubin AST ALT Alkaline Phosphatase Total Protein Albumin Histone Antibodies Hepatitis A Ab Total Hep Bs Antigen Hep Bs Antibody Hep B Core Total Ab Hep B Core IgM Ab 10/02/18 10/02/18 08:13 10:49 WBC RBC Hgb Hct MCV MCH MCHC RDW Plt Count MPV Sodium 137 Potassium 3.8 Chloride 98 Carbon Dioxide 32 Anion Gap 7 L BUN 88.9 H Creatinine 2.6 H Est GFR (CKD-EPI)AfAm 27.72 Est GFR (CKD-EPI)NonAf 23.91 POC Glucometer 92 Random Glucose 111 H Calcium 7.9 L Phosphorus 5.3 H Magnesium 2.7 H Total Bilirubin 0.4 AST 35 ALT 39 Alkaline Phosphatase 182 H Total Protein 5.5 L Albumin 1.9 L Histone Antibodies Hepatitis A Ab Total Hep Bs Antigen Hep Bs Antibody Hep B Core Total Ab Hep B Core IgM Ab Active Medications Generic Name Dose Route Start Last Admin Trade Name Freq PRN Reason Stop Dose Admin Artificial Tears 2 drop 09/20/18 16:13 Artificial Tears OU Q8H PRN DRY EYES Atorvastatin Calcium 20 mg 09/17/18 22:00 10/01/18 21:22 Lipitor - PO 20 mg HS GREGORY Administration Calcium Acetate 667 mg 09/25/18 17:30 10/02/18 12:00 Phoslo - PO 667 mg TIDCM GREGORY Administration Clonidine 0.1 mg 09/30/18 22:00 10/02/18 09:07 Catapres - PO 0.1 mg BID [facility] Administration Heparin Sodium (Porcine) 5,000 unit 10/01/18 14:45 10/02/18 05:55 Heparin - SQ 5,000 unit TID [facility] Administration Heparin Sodium (Porcine) 500 unit 10/02/18 09:15 Heparin - IVPUSH 10/02/18 11:16 Q1H GREGORY Heparin Sodium (Porcine) 500 unit 10/02/18 09:11 Heparin - IVPUSH 10/02/18 09:12 ONCE ONE Hydralazine HCl 25 mg 10/02/18 08:25 10/02/18 09:07 Apresoline - PO 25 mg TID G[facility]ORY Administration Piperacillin Sod/Tazobactam 50 mls @ 100 mls/hr 09/26/18 13:45 06/25/19 09:02 Sod 2.25 gm/ Dextrose IVPB 100 mls/hr Q8H-IV [facility] Administration Protocol Sodium Chloride 250 mls @ 3,000 mls/hr 10/02/18 09:11 Normal Saline - IV 10/03/18 09:11 PRN PRN Hypotension during Dialysis Insulin Aspart 1 vial 09/17/18 16:30 10/02/18 11:00 Novolog Vial Sliding Scale - SQ Not Given ACHS GREGORY Protocol Insulin Detemir 10 units 09/17/18 22:00 10/01/18 21:37 Levemir Vial SQ 10 unit HS [facility] Administration Labetalol HCl 400 mg 09/19/18 10:40 10/02/18 09:02 Normodyne - PO 400 mg BID [facility] Administration Methadone HCl 40 mg/ Methadone 60 mg 09/27/18 06:30 10/02/18 05:55 HCl 20 mg PO 60 mg DAILY@0600 [facility] Administration Methylprednisolone Sodium Succinate 40 mg 09/26/18 15:00 10/02/18 09:02 Solu-Medrol - IVPUSH 40 mg Q6H-IV [facility] Administration Pantoprazole Sodium 40 mg 10/01/18 10:00 10/02/18 09:02 Protonix - PO 40 mg DAILY [facility] Administration Ranitidine HCl 150 mg 10/02/18 10:00 10/02/18 09:02 Zantac - PO 150 mg BID [facility] Administration Sodium Chloride 2 spray 09/23/18 15:50 09/23/18 22:20 [place] Nasal [place] - NS 2 spray Q8H PRN Administration NASAL CONGESTION ASSESSMENT/PLAN: Pt continued to be weaned off high flow, on 40L at 64% FIO2 with O2 saturation in the high 90s Nephro placed order for renal biopsy, heparin for DVT prophylaxis held and pt placed on NPO after midnight for likely procedure tmr BUN and Cr show significant improvement after HD yesterday. Pt will have HD today as per nephro Cardiovascular -patient is being treated for diastolic CHF exacerbation -monitor daily weights/I's/O's -Discontinue lasix drip as per nephro -does not appear that this is helping resolve patient's overloaded status, may need dialysis -echo EF 65, RV pressure 32, no significant abnormalities -discontinue hydralazine for possible drug induced lupus -cardiology following Pulmonary - ICU and monitor on high flow, on 60lpm 80% Fio2 -treating for possible bilateral pneumonia -solumedrol 40q6h on zosyn -ID consultation -CXR in AM -nish Renal -patient has azotemia and worsening of his chronic kidney disease -HD started yesterday, will continue today and tmr as per nephro -repeat BMP in AM -renal following -HD today -renal biopsy pending FEN -no standing fluids -replete lytes as necessary in AM DVT prophylaxis SCDs, stopped heparin for renal biopsy tmr Disposition -monitor in ICU Visit type - Emergency Visit Emergency Visit: No - New Patient This patient is new to me today: No - Critical Care Critical Care patient: Yes Total Critical Care Time (in minutes): 40 Critical Care Statement: The care of this patient involved high complexity decision making to prevent further life threatening deterioration of the patient 's condition and/or to evaluate & treat vital organ system(s) failure or risk of failure.
[2018-10-02] MEDS ORDERED: SODIUM CHLORIDE 250 ML IV PRN (15:40)
[2018-10-02] MEDS ORDERED: HEPARIN NA (PORCINE) 5,000 UNITS/ML 1ML VIAL IVPUSH ONE (15:45)
[2018-10-02] MEDS: HEPARIN NA (PORCINE) 5,000 UNITS/ML 1ML VIAL IVPUSH SCH ×2 (15:57→17:51)
[2018-10-02] MEDS: INSULIN (LEVEMIR) 100 UNITS/ML UNITS SQ SCH (21:36)
[2018-10-02] MEDS: ATORVASTATIN CA 20 MG TABLET (FP) PO SCH (21:38)
[2018-10-02] MEDS ORDERED: amLODIPine BESYLATE 10 MG TABLET (FP) PO ONE (22:36)
[2018-10-03] MEDS ORDERED: PIPERACILLIN/TAZOBACTAM 2.25 GM VIAL IVPB ONE ×3 (02:05→16:54)
[2018-10-03] MEDS ORDERED: DEXTROSE 5%-WATER - 50 ML IVPB ONE ×3 (02:05→16:54)
[2018-10-03] MEDS: PIPERACILLIN/TAZOB 2.25 GM 2.25 GM in DEXTROSE 5%-WATER - 50 ML IVPB SCH ×3 (02:10→17:00)
[2018-10-03] MEDS: methylPREDNISolone NA SUCC 40 MG/1 ML VIAL IVPUSH SCH ×4 (02:54→21:36)
[2018-10-03] MEDS ORDERED: METHADONE HCL 10 MG TABLET ONE (05:15)
[2018-10-03] MEDS ORDERED: METHADONE HCL 40 MG DISPERSABLE TABLET ONE (05:16)
[2018-10-03] MEDS: hydrALAZINE HCL 25 MG TABLET (FP) PO SCH (06:10)
[2018-10-03] MEDS: METHADONE 40 MG, METHADONE 20 MG PO SCH (06:10)
[2018-10-03] MEDS: INSULIN SLIDING SCALE (NOVOLOG) 1 VIAL SQ SCH ×4 (06:19→21:38)
[2018-10-03 06:26] LABS: HEMATOCRIT 26.8 % (35.4-49); HEMOGLOBIN 8.8 GM/dL (11.7-16.9); MCH 28.3 pg (25.7-33.7); MCHC 32.8 g/dl (32.0-35.9); MEAN CELL VOLUME 86.3 fl (80-96); MEAN PLT VOLUME 8.9 fl (7.5-11.1); PLATELET COUNT 201 K/MM3 (134-434); RDW 14.3 % (11.9-15.9); WHITE BLOOD COUNT 14.1 K/mm3 (4.0-10.0)
[2018-10-03] MEDS ORDERED: INSULIN (NOVOLOG) ASPART 100 UNITS/ML 10ML VIAL SQ ONE (06:30)
[2018-10-03 06:44] LABS: BLOOD UREA NITROGEN 69.2 mg/dL (7-18); CALCIUM 8.1 mg/dL (8.5-10.1); CREATININE 2.4 mg/dL (0.55-1.3); MAGNESIUM 2.5 mg/dL (1.8-2.4); PHOSPHOROUS 4.8 mg/dL (2.5-4.9); POTASSIUM 4.2 mmol/L (3.5-5.1)
[2018-10-03] MEDS: CALCIUM ACETATE 667 MG CAPSULE (FP) PO SCH ×3 (08:11→16:57)
--- NOTE | 2018-10-03 08:33 | PN ---
Physical Exam: SUBJECTIVE: Patient seen and examined at bedside. No acute complaints. Denies chest pain, shortness of breath, nausea, vomiting, diarrhea, fevers, chills. Was hypertensive overnight and given norvasc. OBJECTIVE: Vital Signs Period Temp Pulse Resp BP Sys/Bansal Pulse Ox Last 24 Hr 97.8 F-98.4 F 54-66 11-22 110-216/54-119 93-100 GENERAL: A&Ox3, no acute distress EYES: PERRLA, EOMI ENT: Moist mucus membranes NECK: No JVD LUNGS: CTA, no wheezes, on high flow HEART: RRR, no murmurs ABDOMEN: Soft, nontender, BS present MUSCULOSKELETAL: No CVA Tenderness EXTREMITIES: 2+ pulses, no edema. NEUROLOGICAL: Cranial nerves II-XII intact Laboratory Results - last 24 hr 09/27/18 09/27/18 10/02/18 15:20 15:20 08:13 WBC 16.6 H RBC 3.08 L Hgb 8.7 L Hct 26.5 L MCV 86.2 MCH 28.1 MCHC 32.7 RDW 14.3 Plt Count 250 MPV 8.5 Sodium Potassium Chloride Carbon Dioxide Anion Gap BUN Creatinine Est GFR (CKD-EPI)AfAm Est GFR (CKD-EPI)NonAf POC Glucometer Random Glucose Calcium Phosphorus Magnesium Total Bilirubin AST ALT Alkaline Phosphatase Total Protein Albumin Histone Antibodies 1.9 H Hepatitis A Ab Total No Result Required. Hep Bs Antibody No Result Required. Hep B Core IgM Ab No Result Required. 10/02/18 10/02/18 10/02/18 08:13 10:49 17:09 WBC RBC Hgb Hct MCV MCH MCHC RDW Plt Count MPV Sodium 137 Potassium 3.8 Chloride 98 Carbon Dioxide 32 Anion Gap 7 L BUN 88.9 H Creatinine 2.6 H Est GFR (CKD-EPI)AfAm 27.72 Est GFR (CKD-EPI)NonAf 23.91 POC Glucometer 92 182 Random Glucose 111 H Calcium 7.9 L Phosphorus 5.3 H Magnesium 2.7 H Total Bilirubin 0.4 AST 35 ALT 39 Alkaline Phosphatase 182 H Total Protein 5.5 L Albumin 1.9 L Histone Antibodies Hepatitis A Ab Total Hep Bs Antibody Hep B Core IgM Ab 10/02/18 10/03/18 10/03/18 21:19 05:31 05:31 WBC 14.1 H RBC 3.10 L Hgb 8.8 L Hct 26.8 L MCV 86.3 MCH 28.3 MCHC 32.8 RDW 14.3 Plt Count 201 MPV 8.9 Sodium 133 L Potassium 4.2 Chloride 95 L Carbon Dioxide 30 Anion Gap 8 BUN 69.2 H Creatinine 2.4 H Est GFR (CKD-EPI)AfAm 30.53 Est GFR (CKD-EPI)NonAf 26.34 POC Glucometer 283 Random Glucose 257 H Calcium 8.1 L Phosphorus 4.8 Magnesium 2.5 H Total Bilirubin AST ALT Alkaline Phosphatase Total Protein Albumin Histone Antibodies Hepatitis A Ab Total Hep Bs Antibody Hep B Core IgM Ab 10/03/18 05:34 WBC RBC Hgb Hct MCV MCH MCHC RDW Plt Count MPV Sodium Potassium Chloride Carbon Dioxide Anion Gap BUN Creatinine Est GFR (CKD-EPI)AfAm Est GFR (CKD-EPI)NonAf POC Glucometer 255 Random Glucose Calcium Phosphorus Magnesium Total Bilirubin AST ALT Alkaline Phosphatase Total Protein Albumin Histone Antibodies Hepatitis A Ab Total Hep Bs Antibody Hep B Core IgM Ab Active Medications Generic Name Dose Route Start Last Admin Trade Name Freq PRN Reason Stop Dose Admin Artificial Tears 2 drop 09/20/18 16:13 Artificial Tears OU Q8H PRN DRY EYES Atorvastatin Calcium 20 mg 09/17/18 22:00 10/02/18 21:38 Lipitor - PO 20 mg HS [facility] Administration Calcium Acetate 667 mg 09/25/18 17:30 10/03/18 08:11 Phoslo - PO 667 mg TIDCM [facility] Administration Clonidine 0.1 mg 09/30/18 22:00 10/02/18 21:37 Catapres - PO 0.1 mg BID [facility] Administration Heparin Sodium (Porcine) 5,000 unit 10/01/18 14:45 10/02/18 05:55 Heparin - SQ 5,000 unit TID [facility] Administration Hydralazine HCl 25 mg 10/02/18 08:25 10/03/18 06:10 Apresoline - PO 25 mg TID [facility] Administration Piperacillin Sod/Tazobactam 50 mls @ 100 mls/hr 09/26/18 13:45 10/03/18 02:10 Sod 2.25 gm/ Dextrose IVPB 100 mls/hr Q8H-IV [facility] Administration Protocol Sodium Chloride 250 mls @ 3,000 mls/hr 10/02/18 15:40 Normal Saline - IV 10/03/18 15:39 PRN PRN Hypotension during Dialysis Insulin Aspart 1 vial 09/17/18 16:30 10/03/18 06:19 Novolog Vial Sliding Scale - SQ Not Given ACHS [facility] Protocol Insulin Detemir 10 units 09/17/18 22:00 10/02/18 21:36 Levemir Vial SQ 10 unit HS [facility] Administration Labetalol HCl 400 mg 09/19/18 10:40 10/02/18 21:37 Normodyne - PO 400 mg BID [facility] Administration Methadone HCl 40 mg/ Methadone 60 mg 09/27/18 06:30 10/03/18 06:10 HCl 20 mg PO 60 mg DAILY@0600 [facility] Administration Methylprednisolone Sodium Succinate 40 mg 09/26/18 15:00 10/03/18 08:11 Solu-Medrol - IVPUSH 40 mg Q6H-IV [facility] Administration Pantoprazole Sodium 40 mg 10/01/18 10:00 10/02/18 09:02 Protonix - PO 40 mg DAILY [facility] Administration Ranitidine HCl 150 mg 10/02/18 10:00 10/02/18 21:38 Zantac - PO 150 mg BID [facility] Administration Sodium Chloride 2 spray 09/23/18 15:50 09/23/18 22:20 [place] Nasal [place] - NS 2 spray Q8H PRN Administration NASAL CONGESTION ASSESSMENT/PLAN: 68 year old male with a past medical history of hypertension, insulin dependent diabetes, hyperlipidemia, NPH, UTI and R sided lung CA s/p resection many years ago (benign according to daughter) was brought to the hospital for shortness of breath and admitted for treatment of acute hypoxic respiratory failure 2/2 CHF exacerbation and pneumonia. Cardiovascular -patient is being treated for diastolic CHF exacerbation -monitor daily weights/I's/O's -overload status appears to be improving -echo EF 65, RV pressure 32, no significant abnormalities -hydralazine 25 TID -clonidine 0.1 BID -> increasing to 0.2 -cardiology following Pulmonary -Monitor on high flow, on 40lpm 60% Fio2, saturating 100% -treating for possible bilateral pneumonia -solumedrol 40q6h on zosyn -ID consultation -n[facility] Renal -Had HD yesterday, per renal, will no longer need dialysis and can have dialysis catheter removed -repeat BMP in AM -renal following -renal biopsy pending for today -was NPO after midnight FEN -no standing fluids -replete lytes as necessary in AM DVT prophylaxis SCDs, stopped heparin for renal biopsy today Disposition -monitor in ICU Visit type - Emergency Visit Emergency Visit: No - New Patient This patient is new to me today: No - Critical Care Critical Care patient: Yes Total Critical Care Time (in minutes): 38 Critical Care Statement: The care of this patient involved high complexity decision making to prevent further life threatening deterioration of the patient 's condition and/or to evaluate & treat vital organ system(s) failure or risk of failure.
[2018-10-03] MEDS: cloNIDine HCL 0.1 MG TABLET PO SCH ×2 (09:40→21:37)
[2018-10-03] MEDS: PANTOPRAZOLE 40 MG TABLET (FP) PO SCH (09:41)
[2018-10-03] MEDS: RANITIDINE HCL 150 MG TABLET (FP) PO SCH ×2 (09:41→21:38)
[2018-10-03] MEDS: LABETALOL HCL 200 MG TABLET (FP) PO SCH ×2 (09:41→21:37)
[2018-10-03] MEDS ORDERED: hydrALAZINE HCL 20 MG/ML VIAL ONE (10:03)
--- NOTE | 2018-10-03 10:11 | PN ---
Progress Note (short form) - Note Progress Note: events noted pt in ICU anxious going for renal biopsy today awake and alert on high flow O2 feeling well no complaints Vital Signs - 24 hr 10/02/18 10/02/18 10/02/18 12:00 12:10 12:40 Temperature 98.4 F Pulse Rate 54 L 55 L 56 L Respiratory 18 18 18 Rate Blood Pressure 187/64 H 186/60 H 110/54 L O2 Sat by Pulse Oximetry (%) 10/02/18 10/02/18 10/02/18 13:10 13:40 14:00 Temperature 98.0 F Pulse Rate 54 L 55 L 56 L Respiratory 18 18 11 Rate Blood Pressure 127/56 L 132/61 132/60 O2 Sat by Pulse Oximetry (%) 10/02/18 10/02/18 10/02/18 14:10 14:40 15:10 Temperature Pulse Rate 58 L 60 60 Respiratory 18 18 18 Rate Blood Pressure 132/60 145/60 140/60 O2 Sat by Pulse Oximetry (%) 10/02/18 10/02/18 10/02/18 15:40 16:00 16:10 Temperature 97.9 F Pulse Rate 57 L 57 L 60 Respiratory 18 18 18 Rate Blood Pressure 115/70 149/64 142/68 O2 Sat by Pulse Oximetry (%) 10/02/18 10/02/18 10/02/18 16:57 18:00 20:00 Temperature 98.0 F 98.2 F Pulse Rate 64 62 63 Respiratory 18 18 19 Rate Blood Pressure 144/60 169/67 135/119 H O2 Sat by Pulse Oximetry (%) 10/02/18 10/02/18 10/02/18 21:00 21:03 21:52 Temperature Pulse Rate 63 Respiratory Rate Blood Pressure O2 Sat by Pulse 98 98 98 Oximetry (%) 10/02/18 10/03/18 10/03/18 22:00 00:00 02:00 Temperature 98.4 F 98.3 F Pulse Rate 62 57 L 60 Respiratory 15 15 21 H Rate Blood Pressure 216/69 H 187/55 H 171/58 H O2 Sat by Pulse Oximetry (%) 10/03/18 10/03/18 10/03/18 04:00 06:00 06:45 Temperature 98.2 F Pulse Rate 66 60 60 Respiratory 22 H 17 Rate Blood Pressure 180/58 H 193/65 H O2 Sat by Pulse 100 Oximetry (%) 10/03/18 10/03/18 10/03/18 07:50 08:00 08:47 Temperature Pulse Rate 60 61 Respiratory 16 Rate Blood Pressure 194/59 H O2 Sat by Pulse 100 97 Oximetry (%) 10/03/18 08:50 Temperature Pulse Rate Respiratory Rate Blood Pressure O2 Sat by Pulse 99 Oximetry (%) Current Medications Generic Name Dose Route Start Last Admin Trade Name Freq PRN Reason Stop Dose Admin Artificial Tears 2 drop 09/20/18 16:13 Artificial Tears OU Q8H PRN DRY EYES Atorvastatin Calcium 20 mg 09/17/18 22:00 10/02/18 21:38 Lipitor - PO 20 mg HS [facility] Administration Calcium Acetate 667 mg 09/25/18 17:30 10/03/18 08:11 Phoslo - PO 667 mg TIDCM [facility] Administration Clonidine 0.1 mg 09/30/18 22:00 10/03/18 09:40 Catapres - PO 0.1 mg BID [facility] Administration Heparin Sodium (Porcine) 5,000 unit 10/01/18 14:45 10/02/18 05:55 Heparin - SQ 5,000 unit TID [facility] Administration Hydralazine HCl 25 mg 10/02/18 08:25 10/03/18 06:10 Apresoline - PO 25 mg TID [facility] Administration Piperacillin Sod/Tazobactam 50 mls @ 100 mls/hr 09/26/18 13:45 10/03/18 09:41 Sod 2.25 gm/ Dextrose IVPB 100 mls/hr Q8H-IV [facility] Administration Protocol Sodium Chloride 250 mls @ 3,000 mls/hr 10/02/18 15:40 Normal Saline - IV 10/03/18 15:39 PRN PRN Hypotension during Dialysis Insulin Aspart 1 vial 09/17/18 16:30 10/03/18 06:19 Novolog Vial Sliding Scale - SQ Not Given ACHS [facility] Protocol Insulin Detemir 10 units 09/17/18 22:00 10/02/18 21:36 Levemir Vial SQ 10 unit HS [facility] Administration Labetalol HCl 400 mg 09/19/18 10:40 10/03/18 09:41 Normodyne - PO 400 mg BID [facility] Administration Methadone HCl 40 mg/ Methadone 60 mg 09/27/18 06:30 10/03/18 06:10 HCl 20 mg PO 60 mg DAILY@0600 [facility] Administration Methylprednisolone Sodium Succinate 40 mg 09/26/18 15:00 10/03/18 08:11 Solu-Medrol - IVPUSH 40 mg Q6H-IV [facility] Administration Pantoprazole Sodium 40 mg 10/01/18 10:00 10/03/18 09:41 Protonix - PO 40 mg DAILY [facility] Administration Ranitidine HCl 150 mg 10/02/18 10:00 10/03/18 09:41 Zantac - PO 150 mg BID [facility] Administration Sodium Chloride 2 spray 09/23/18 15:50 09/23/18 22:20 [place] Nasal [place] - NS 2 spray Q8H PRN Administration NASAL CONGESTION Laboratory Results - last 24 hr 09/27/18 09/27/18 10/02/18 15:20 15:20 10:49 WBC RBC Hgb Hct MCV MCH MCHC RDW Plt Count MPV Sodium Potassium Chloride Carbon Dioxide Anion Gap BUN Creatinine Est GFR (CKD-EPI)AfAm Est GFR (CKD-EPI)NonAf POC Glucometer 92 Random Glucose Calcium Phosphorus Magnesium Histone Antibodies 1.9 H Hepatitis A Ab Total No Result Required. Hep Bs Antibody No Result Required. Hep B Core IgM Ab No Result Required. 10/02/18 10/02/18 10/03/18 17:09 21:19 05:31 WBC 14.1 H RBC 3.10 L Hgb 8.8 L Hct 26.8 L MCV 86.3 MCH 28.3 MCHC 32.8 RDW 14.3 Plt Count 201 MPV 8.9 Sodium Potassium Chloride Carbon Dioxide Anion Gap BUN Creatinine Est GFR (CKD-EPI)AfAm Est GFR (CKD-EPI)NonAf POC Glucometer 182 283 Random Glucose Calcium Phosphorus Magnesium Histone Antibodies Hepatitis A Ab Total Hep Bs Antibody Hep B Core IgM Ab 10/03/18 10/03/18 05:31 05:34 WBC RBC Hgb Hct MCV MCH MCHC RDW Plt Count MPV Sodium 133 L Potassium 4.2 Chloride 95 L Carbon Dioxide 30 Anion Gap 8 BUN 69.2 H Creatinine 2.4 H Est GFR (CKD-EPI)AfAm 30.53 Est GFR (CKD-EPI)NonAf 26.34 POC Glucometer 255 Random Glucose 257 H Calcium 8.1 L Phosphorus 4.8 Magnesium 2.5 H Histone Antibodies Hepatitis A Ab Total Hep Bs Antibody Hep B Core IgM Ab S1 s2 RRR Lungs decreased breath sounds abd- soft, NT edema decreased PLAN CHF--on HD leucocytosis-- blood cultures , ua and urine culture-- negative ID eval noted-- on Zosyn on solumedrol may need renal biospy per renal -- today anxious-- give a low dose Ativan x 1 has splenic lesion-- can not do contrast imaging due to decreased renal function BP elevated-- may be related to anxiety as well--spoke with Cardiology-- increase clonidine Problem List - Problems (1) BRET (acute kidney injury) Code(s): N17.9 - ACUTE KIDNEY FAILURE, UNSPECIFIED (2) Acute and chronic respiratory failure Code(s): J96.20 - ACUTE AND CHR RESP FAILURE, UNSP W HYPOXIA OR HYPERCAPNIA (3) Qilhg-og-noxhodn kidney injury Code(s): N17.9 - ACUTE KIDNEY FAILURE, UNSPECIFIED; N18.9 - CHRONIC KIDNEY DISEASE, UNSPECIFIED (4) CHF exacerbation Code(s): I50.9 - HEART FAILURE, UNSPECIFIED (5) Diabetes Code(s): E11.9 - TYPE 2 DIABETES MELLITUS WITHOUT COMPLICATIONS
[2018-10-03] MEDS ORDERED: LORazepam 2 MG/ML SDV VIAL ONE (10:12)
[2018-10-03] MEDS ORDERED: LORazepam 2 MG/ML SDV VIAL IVPUSH ONE (10:15)
[2018-10-03] MEDS ORDERED: hydrALAZINE HCL 20 MG/ML VIAL IVPUSH ONE (10:15)
--- NOTE | 2018-10-03 10:42 | PN ---
Progress Note (short form) - Note Progress Note: s: no chest pain, palps, dizziness. sob improved Current Medications Artificial Tears (Artificial Tears) 2 drop OU Q8H PRN PRN Reason: DRY EYES Atorvastatin Calcium (Lipitor -) 20 mg PO HS [facility] Last Admin: 10/02/18 21:38 Dose: 20 mg Calcium Acetate (Phoslo -) 667 mg PO TIDCM [facility] Last Admin: 10/03/18 08:11 Dose: 667 mg Clonidine (Catapres -) 0.2 mg PO BID [facility] Heparin Sodium (Porcine) (Heparin -) 5,000 unit SQ TID [facility] Last Admin: 10/02/18 05:55 Dose: 5,000 unit Hydralazine HCl (Apresoline -) 25 mg PO TID [facility] Last Admin: 10/03/18 06:10 Dose: 25 mg Piperacillin Sod/Tazobactam (Sod 2.25 gm/ Dextrose) 50 mls @ 100 mls/hr IVPB Q8H-IV [facility]; Protocol Last Admin: 10/03/18 09:41 Dose: 100 mls/hr Sodium Chloride (Normal Saline -) 250 mls @ 3,000 mls/hr IV PRN PRN PRN Reason: Hypotension during Dialysis Stop: 10/03/18 15:39 Insulin Aspart (Novolog Vial Sliding Scale -) 1 vial SQ [facility]; Protocol Last Admin: 10/03/18 06:19 Dose: Not Given Insulin Detemir (Levemir Vial) 10 units SQ [facility] Last Admin: 10/02/18 21:36 Dose: 10 unit Labetalol HCl (Normodyne -) 400 mg PO BID [facility] Last Admin: 10/03/18 09:41 Dose: 400 mg Methadone HCl 40 mg/ Methadone (HCl 20 mg) 60 mg PO DAILY@0600 [facility] Last Admin: 10/03/18 06:10 Dose: 60 mg Methylprednisolone Sodium Succinate (Solu-Medrol -) 40 mg IVPUSH Q6H-IV [facility] Last Admin: 10/03/18 08:11 Dose: 40 mg Pantoprazole Sodium (Protonix -) 40 mg PO DAILY [facility] Last Admin: 10/03/18 09:41 Dose: 40 mg Ranitidine HCl (Zantac -) 150 mg PO BID [facility] Last Admin: 10/03/18 09:41 Dose: 150 mg Sodium Chloride ([place] Nasal [place] -) 2 spray NS Q8H PRN PRN Reason: NASAL CONGESTION Last Admin: 09/23/18 22:20 Dose: 2 spray Vital Signs Period Temp Pulse Resp BP Sys/Bansal Pulse Ox Last 24 Hr 97.8 F-98.4 F 54-66 11-22 110-216/54-119 97-100 Constitutional: Yes: Well Nourished, No Distress, Calm Cardiovascular: Yes: Regular Rate and Rhythm, S1, S2. No: JVD, Gallop, Murmur Respiratory: Yes: Regular, Rales (bases). No: Accessory Muscle Use Edema: Yes (1+ pedal) Neurological: Yes: Alert, Oriented Psychiatric: No: Agitated no jaundice, diaphoresis Assessment/Plan mibi 2015 no ischemia, nl EF EKG: sinus, PVC, no ischemic changes echo 09/2018 nl LV function, mild MAC, tr MR, RVSP 32 mmHg CXR: extensive bilat infiltrates with R effusion, worse 68M h/o HTN, DM, HLD, PAD s/p femoral stent, prior smoker, R sided lung ca s/p partial resection p/w shortness of breath: Shortness of breath, PNA, acute diastolic CHF exacerbation: - likely multifactorial - h/o lung ca s/p resection, findings concerning for PNA - abx, nebs per primary, pulm - elevated BNP (7K) with congestion on CXR, likely component of HF - echo nl LV function, remainder unremarkable, no pulm HTN noted - Clinically improved w/ HD--vol mgmt plan per renal BRET on CKD: started on HD: -likely component of cardiorenal syndrome - plan for kidney bx today HTN: - holding home diuretic, valsartan - amlodipine stopped for edema - cont labetolol, clonidine, hydralazine - BP not controlled - increase clonidine to 0.2 mg BID HLD: - cont statin PAD: - cont statin, aspirin
[2018-10-03] MEDS ORDERED: cloNIDine HCL 0.1 MG TABLET PO ONE (10:43)
--- NOTE | 2018-10-03 12:02 | PN ---
Teaching Attending Note Name of Resident: Monty Rainey ATTENDING PHYSICIAN STATEMENT I saw and evaluated the patient. I reviewed the resident's note and discussed the case with the resident. I agree with the resident's findings and plan as documented. SUBJECTIVE: Pt seen and examined in the ICU. Remains on HFOT with lower FiO2. For renal biopsy today. OBJECTIVE: Vital Signs Period Temp Pulse Resp BP Sys/Bansal Pulse Ox Last 24 Hr 97.9 F-98.4 F 54-66 11-28 110-216/54-119 97-100 Intake & Output 09/30/18 10/01/18 10/02/18 10/03/18 23:59 23:59 23:59 23:59 Intake Total 820 465 740 100 Output Total 1490 1000 1500 400 Balance -670 -535 -760 -300 Weight 82.299 kg 82.69 kg 77.02 kg Gen: less tachypneic on HFOT Heart: RRR Lung: scattered basilar rales Abd: soft, nontender Ext: no edema CBC, BMP 10/03/18 05:31 10/03/18 05:31 Active Medications Artificial Tears (Artificial Tears) 2 drop OU Q8H PRN PRN Reason: DRY EYES Atorvastatin Calcium (Lipitor -) 20 mg PO HS [facility] Last Admin: 10/02/18 21:38 Dose: 20 mg Calcium Acetate (Phoslo -) 667 mg PO TIDCM [facility] Last Admin: 10/03/18 08:11 Dose: 667 mg Clonidine (Catapres -) 0.2 mg PO BID [facility] Heparin Sodium (Porcine) (Heparin -) 5,000 unit SQ TID [facility] Last Admin: 10/02/18 05:55 Dose: 5,000 unit Hydralazine HCl (Apresoline -) 25 mg PO TID [facility] Last Admin: 10/03/18 06:10 Dose: 25 mg Piperacillin Sod/Tazobactam (Sod 2.25 gm/ Dextrose) 50 mls @ 100 mls/hr IVPB Q8H-IV [facility]; Protocol Last Admin: 10/03/18 09:41 Dose: 100 mls/hr Sodium Chloride (Normal Saline -) 250 mls @ 3,000 mls/hr IV PRN PRN PRN Reason: Hypotension during Dialysis Stop: 10/03/18 15:39 Insulin Aspart (Novolog Vial Sliding Scale -) 1 vial SQ ACH[facility]; Protocol Last Admin: 10/03/18 06:19 Dose: Not Given Insulin Detemir (Levemir Vial) 10 units SQ HS [facility] Last Admin: 10/02/18 21:36 Dose: 10 unit Labetalol HCl (Normodyne -) 400 mg PO BID [facility] Last Admin: 10/03/18 09:41 Dose: 400 mg Methadone HCl 40 mg/ Methadone (HCl 20 mg) 60 mg PO DAILY@0600 [facility] Last Admin: 10/03/18 06:10 Dose: 60 mg Methylprednisolone Sodium Succinate (Solu-Medrol -) 40 mg IVPUSH Q6H-IV [facility] Last Admin: 10/03/18 08:11 Dose: 40 mg Nifedipine (Procardia Xl -) 60 mg PO DAILY [facility] Pantoprazole Sodium (Protonix -) 40 mg PO DAILY [facility] Last Admin: 10/03/18 09:41 Dose: 40 mg Ranitidine HCl (Zantac -) 150 mg PO BID [facility] Last Admin: 10/03/18 09:41 Dose: 150 mg Sodium Chloride ([place] Nasal [place] -) 2 spray NS Q8H PRN PRN Reason: NASAL CONGESTION Last Admin: 09/23/18 22:20 Dose: 2 spray ASSESSMENT AND PLAN: Acute Hypoxic Respiratory Failure r/o Acute Pneumonitis/Interstitial Lung Disease r/o Pneumonia Acute on Chronic Diastolic Heart Failure Acute on Chronic Renal Failure requiring HD h/o Lung Ca HTN DM - continue medrol - continue empiric antibiotics - inhaled bronchodilators - lasix - monitor urine output, creatinine - HD per renal - f/u renal biopsy - taper HFOT to keep SpO2 >90% - PO as tolerated - DVT prophylaxis - continue ICU monitoring critical care time spent in reviewing chart, evaluating patient and formulating plan 35 min
[2018-10-03] MEDS: NIFEdipine E.R 60 MG TABLET (UD) PO SCH (12:27)
--- NOTE | 2018-10-03 13:45 | PN ---
Progress Note (short form) - Note Progress Note: off dialysis just returned from kidney biopsy feels well Vital Signs Period Temp Pulse Resp BP Sys/Bansal Pulse Ox Last 24 Hr 97.9 F-98.4 F 56-66 11-28 115-216/55-119 97-100 cor-rrr lungs bibasilar crackles abd soft,nt ext no edema CBC, BMP 10/03/18 05:31 10/03/18 05:31 Microbiology 09/26/18 12:40 Blood - Peripheral Venous Blood Culture - Final NO GROWTH AFTER 5 DAYS INCUBATION 09/26/18 12:35 Blood - Peripheral Venous Blood Culture - Final NO GROWTH AFTER 5 DAYS INCUBATION 09/26/18 15:15 Urine - Urine - Catheterized Urine Culture - Final NO GROWTH OBTAINED 09/23/18 14:35 Urine For Antigen Detection Legionella Antigen - Final 09/23/18 14:35 Urine For Antigen Detection Streptococcus pneumoniae Antigen (M - Final 09/17/18 17:05 Blood - Peripheral Venous Blood Culture - Final NO GROWTH AFTER 5 DAYS INCUBATION 09/17/18 16:00 Blood - Peripheral Venous Blood Culture - Final NO GROWTH AFTER 5 DAYS INCUBATION 09/20/18 07:00 Urine For Antigen Detection Legionella Antigen - Final 09/20/18 07:00 Urine For Antigen Detection Streptococcus pneumoniae Antigen (M - Final hiv negative hisone antibody positive a/p ?pneumonia- continue zosyn day #7, d/c in am leukocytosis resolving ?inflammatory reaction- ?hydralazine, now on steroids histone antibody positive heart failure- per cardiology BRET/ckd dialysis d/noman, s/p renal biopsy today diabetes d/w ICU team Problem List - Problems (1) Leukocytosis Code(s): D72.829 - ELEVATED WHITE BLOOD CELL COUNT, UNSPECIFIED (2) Pneumonia Code(s): J18.9 - PNEUMONIA, UNSPECIFIED ORGANISM (3) Acute and chronic respiratory failure Code(s): J96.20 - ACUTE AND CHR RESP FAILURE, UNSP W HYPOXIA OR HYPERCAPNIA (4) Traqj-pl-sddokmd kidney injury Code(s): N17.9 - ACUTE KIDNEY FAILURE, UNSPECIFIED; N18.9 - CHRONIC KIDNEY DISEASE, UNSPECIFIED (5) Diabetes Code(s): E11.9 - TYPE 2 DIABETES MELLITUS WITHOUT COMPLICATIONS (6) History of lung cancer Code(s): Z85.118 - PERSONAL HISTORY OF MALIGNANT NEOPLASM OF BRONCHUS AND LUNG
--- NOTE | 2018-10-03 14:26 | PN ---
Progress Note (short form) - Note Progress Note: Renal follow up for BRET Pt seen and examined in the ICU awake and alert s/p kidney biopsy feels well, denies any flank pain no sob, cp, abd pain last dialysis was yesterday Vital Signs Temperature 98.4 F 10/03/18 10:00 Pulse Rate 58 L 10/03/18 12:00 Respiratory Rate 14 10/03/18 12:00 Blood Pressure 166/64 10/03/18 12:00 O2 Sat by Pulse Oximetry (%) 100 10/03/18 11:40 Intake & Output 09/30/18 10/01/18 10/02/18 10/03/18 23:59 23:59 23:59 23:59 Intake Total 820 465 740 100 Output Total 1490 1000 1500 400 Balance -670 -535 -760 -300 Weight 82.299 kg 82.69 kg 77.02 kg NAD RRR, no M/R BS improved no edema CBC, BMP 10/03/18 05:31 10/03/18 05:31 Current Medications Artificial Tears (Artificial Tears) 2 drop OU Q8H PRN PRN Reason: DRY EYES Atorvastatin Calcium (Lipitor -) 20 mg PO HS [facility] Last Admin: 10/02/18 21:38 Dose: 20 mg Calcium Acetate (Phoslo -) 667 mg PO TIDCM [facility] Last Admin: 10/03/18 12:26 Dose: 667 mg Clonidine (Catapres -) 0.2 mg PO BID [facility] Heparin Sodium (Porcine) (Heparin -) 5,000 unit SQ TID [facility] Last Admin: 10/02/18 05:55 Dose: 5,000 unit Piperacillin Sod/Tazobactam (Sod 2.25 gm/ Dextrose) 50 mls @ 100 mls/hr IVPB Q8H-IV [facility]; Protocol Last Admin: 10/03/18 09:41 Dose: 100 mls/hr Sodium Chloride (Normal Saline -) 250 mls @ 3,000 mls/hr IV PRN PRN PRN Reason: Hypotension during Dialysis Stop: 10/03/18 15:39 Insulin Aspart (Novolog Vial Sliding Scale -) 1 vial SQ ACHS [facility]; Protocol Last Admin: 10/03/18 12:39 Dose: 5 units Insulin Detemir (Levemir Vial) 10 units SQ HS [facility] Last Admin: 10/02/18 21:36 Dose: 10 unit Labetalol HCl (Normodyne -) 400 mg PO BID [facility] Last Admin: 10/03/18 09:41 Dose: 400 mg Methadone HCl 40 mg/ Methadone (HCl 20 mg) 60 mg PO DAILY@0600 [facility] Last Admin: 10/03/18 06:10 Dose: 60 mg Methylprednisolone Sodium Succinate (Solu-Medrol -) 40 mg IVPUSH Q6H-IV [facility] Last Admin: 10/03/18 08:11 Dose: 40 mg Nifedipine (Procardia Xl -) 60 mg PO DAILY [facility] Last Admin: 10/03/18 12:27 Dose: 60 mg Pantoprazole Sodium (Protonix -) 40 mg PO DAILY [facility] Last Admin: 10/03/18 09:41 Dose: 40 mg Ranitidine HCl (Zantac -) 150 mg PO BID [facility] Last Admin: 10/03/18 09:41 Dose: 150 mg Sodium Chloride ([place] Nasal [place] -) 2 spray NS Q8H PRN PRN Reason: NASAL CONGESTION Last Admin: 09/23/18 22:20 Dose: 2 spray 68 year old gentleman with hx of of hypertension, DM on insulin, PVD s/ p Le stents, BPH, Hx of Lung cancer s/p resection who presented with SOB and noted to have BUN/Cr of 79/3.2. #Acute shortness of breath form diastolic HF + PNA #Peripheral edema #Acute on chronic renal insufficiency #Anemia #Hypertension #BPH BUN/Cr and clinical status improved s/p dialysis s/p renal biopsy today, expect result by Monday or Monday UPCR is 3.2, CHICHI negative, ANCA is negative, anti-histone ab is moderate positive would avoid any further hydralazine use Urine Legionella Ag negative CT of the chest consistent with PNA Renal imaging showed no obstruction lesion on spleen, would need CT with contrast to evalulate but should wait until renal function is improved Trend daily weights continue labetalol and clonidine started Nifedpine ER 60mg Daily for additional BP control Bed rest today, monitor urine for hematuria. Dariusz Iniguez DO
[2018-10-03] MEDS: INSULIN (LEVEMIR) 100 UNITS/ML UNITS SQ SCH (21:37)
[2018-10-03] MEDS: ATORVASTATIN CA 20 MG TABLET (FP) PO SCH (21:37)
[2018-10-04] MEDS ORDERED: MELATONIN 5 MG TABLETS PO ONE (00:18)
[2018-10-04] MEDS ORDERED: PIPERACILLIN/TAZOBACTAM 2.25 GM VIAL IVPB ONE ×2 (01:05→09:04)
[2018-10-04] MEDS ORDERED: DEXTROSE 5%-WATER - 50 ML IVPB ONE ×2 (01:05→09:04)
[2018-10-04] MEDS: PIPERACILLIN/TAZOB 2.25 GM 2.25 GM in DEXTROSE 5%-WATER - 50 ML IVPB SCH ×2 (01:08→09:11)
[2018-10-04] MEDS: methylPREDNISolone NA SUCC 40 MG/1 ML VIAL IVPUSH SCH ×3 (03:04→17:03)
[2018-10-04] MEDS ORDERED: METHADONE HCL 10 MG TABLET ONE (05:43)
[2018-10-04] MEDS ORDERED: METHADONE HCL 40 MG DISPERSABLE TABLET ONE (05:43)
[2018-10-04] MEDS: METHADONE 40 MG, METHADONE 20 MG PO SCH (05:47)
[2018-10-04] MEDS: INSULIN SLIDING SCALE (NOVOLOG) 1 VIAL SQ SCH ×4 (06:04→21:27)
[2018-10-04 06:14] LABS: BLOOD UREA NITROGEN 91.4 mg/dL (7-18); CALCIUM 7.6 mg/dL (8.5-10.1); CREATININE 3.3 mg/dL (0.55-1.3); MAGNESIUM 2.6 mg/dL (1.8-2.4); POTASSIUM 4.6 mmol/L (3.5-5.1)
[2018-10-04] MEDS: CALCIUM ACETATE 667 MG CAPSULE (FP) PO SCH ×3 (09:10→17:03)
[2018-10-04] MEDS: NIFEdipine E.R 60 MG TABLET (UD) PO SCH (09:10)
[2018-10-04] MEDS: PANTOPRAZOLE 40 MG TABLET (FP) PO SCH (09:10)
[2018-10-04] MEDS: RANITIDINE HCL 150 MG TABLET (FP) PO SCH ×2 (09:10→21:25)
[2018-10-04] MEDS: LABETALOL HCL 200 MG TABLET (FP) PO SCH ×2 (09:11→21:24)
[2018-10-04] MEDS: cloNIDine HCL 0.1 MG TABLET PO SCH ×2 (09:11→21:25)
--- NOTE | 2018-10-04 10:42 | PN ---
Progress Note (short form) - Note Progress Note: events noted pt in ICU today awake and alert on high flow O2-- tapering feeling well no complaints Vital Signs - 24 hr 10/03/18 10/03/18 10/03/18 11:11 11:20 11:30 Temperature Pulse Rate 61 Pulse Rate [ 59 L 59 L Left Upper Arm] Respiratory 19 Rate Respiratory 22 H 24 H Rate [Left Upper Arm] Blood Pressure 179/70 H Blood Pressure 188/77 H 188/77 H [Left Upper Arm ] O2 Sat by Pulse 100 Oximetry (%) O2 Sat by Pulse 100 100 Oximetry (%) [ Left Upper Arm] 10/03/18 10/03/18 10/03/18 11:40 12:00 14:00 Temperature 98.5 F Pulse Rate 61 58 L 54 L Pulse Rate [ Left Upper Arm] Respiratory 28 H 14 11 Rate Respiratory Rate [Left Upper Arm] Blood Pressure 170/69 166/64 137/48 L Blood Pressure [Left Upper Arm ] O2 Sat by Pulse 100 98 Oximetry (%) O2 Sat by Pulse Oximetry (%) [ Left Upper Arm] 10/03/18 10/03/18 10/03/18 16:00 16:39 18:00 Temperature 97.8 F Pulse Rate 59 L 55 L Pulse Rate [ Left Upper Arm] Respiratory 11 14 Rate Respiratory Rate [Left Upper Arm] Blood Pressure 162/55 L 106/41 L Blood Pressure [Left Upper Arm ] O2 Sat by Pulse 97 Oximetry (%) O2 Sat by Pulse Oximetry (%) [ Left Upper Arm] 10/03/18 10/03/18 10/04/18 19:55 22:16 00:00 Temperature 97.9 F Pulse Rate 60 65 55 L Pulse Rate [ Left Upper Arm] Respiratory 14 22 H 22 H Rate Respiratory Rate [Left Upper Arm] Blood Pressure 106/41 L 142/50 L 148/66 Blood Pressure [Left Upper Arm ] O2 Sat by Pulse 96 Oximetry (%) O2 Sat by Pulse Oximetry (%) [ Left Upper Arm] 10/04/18 10/04/18 10/04/18 02:00 04:00 06:00 Temperature 98.1 F 97.2 F L Pulse Rate 55 L 55 L 52 L Pulse Rate [ Left Upper Arm] Respiratory 20 22 H 18 Rate Respiratory Rate [Left Upper Arm] Blood Pressure 158/56 L 124/76 142/64 Blood Pressure [Left Upper Arm ] O2 Sat by Pulse Oximetry (%) O2 Sat by Pulse Oximetry (%) [ Left Upper Arm] 10/04/18 10/04/18 10/04/18 07:54 07:56 07:59 Temperature Pulse Rate 53 L Pulse Rate [ Left Upper Arm] Respiratory 17 Rate Respiratory Rate [Left Upper Arm] Blood Pressure 189/92 H Blood Pressure [Left Upper Arm ] O2 Sat by Pulse 98 98 Oximetry (%) O2 Sat by Pulse Oximetry (%) [ Left Upper Arm] 10/04/18 10/04/18 10:00 10:20 Temperature 97.4 F L Pulse Rate 61 Pulse Rate [ Left Upper Arm] Respiratory 11 Rate Respiratory Rate [Left Upper Arm] Blood Pressure 179/61 H Blood Pressure [Left Upper Arm ] O2 Sat by Pulse 95 Oximetry (%) O2 Sat by Pulse Oximetry (%) [ Left Upper Arm] Current Medications Generic Name Dose Route Start Last Admin Trade Name Freq PRN Reason Stop Dose Admin Artificial Tears 2 drop 09/20/18 16:13 Artificial Tears OU Q8H PRN DRY EYES Atorvastatin Calcium 20 mg 09/17/18 22:00 10/03/18 21:37 Lipitor - PO 20 mg HS [facility] Administration Calcium Acetate 667 mg 09/25/18 17:30 10/04/18 09:10 Phoslo - PO 667 mg TIDCM [facility] Administration Clonidine 0.2 mg 10/03/18 10:41 10/04/18 09:11 Catapres - PO 0.2 mg BID [facility] Administration Heparin Sodium (Porcine) 5,000 unit 10/01/18 14:45 10/02/18 05:55 Heparin - SQ 5,000 unit TID [facility] Administration Piperacillin Sod/Tazobactam 50 mls @ 100 mls/hr 09/26/18 13:45 10/04/18 09:11 Sod 2.25 gm/ Dextrose IVPB 100 mls/hr Q8H-IV [facility] Administration Protocol Insulin Aspart 1 vial 09/17/18 16:30 10/04/18 06:04 Novolog Vial Sliding Scale - SQ 5 units ACHS [facility] Administration Protocol Insulin Detemir 10 units 09/17/18 22:00 10/03/18 21:37 Levemir Vial SQ 10 unit HS [facility] Administration Labetalol HCl 400 mg 09/19/18 10:40 10/04/18 09:11 Normodyne - PO 400 mg BID [facility] Administration Methadone HCl 40 mg/ Methadone 60 mg 09/27/18 06:30 10/04/18 05:47 HCl 20 mg PO 60 mg DAILY@0600 [facility] Administration Methylprednisolone Sodium Succinate 40 mg 09/26/18 15:00 10/04/18 09:10 Solu-Medrol - IVPUSH 40 mg Q6H-IV [facility] Administration Nifedipine 60 mg 10/03/18 11:15 10/03/18 12:27 Procardia Xl - PO 60 mg DAILY [facility] Administration Pantoprazole Sodium 40 mg 10/01/18 10:00 10/04/18 09:10 Protonix - PO 40 mg DAILY [facility] Administration Ranitidine HCl 150 mg 10/02/18 10:00 10/04/18 09:10 Zantac - PO 150 mg BID [facility] Administration Sodium Chloride 2 spray 09/23/18 15:50 09/23/18 22:20 [place] Nasal [place] - NS 2 spray Q8H PRN Administration NASAL CONGESTION Laboratory Results - last 24 hr 09/27/18 10/03/18 10/03/18 15:20 12:26 16:52 Sodium Potassium Chloride Carbon Dioxide Anion Gap BUN Creatinine Est GFR (CKD-EPI)AfAm Est GFR (CKD-EPI)NonAf POC Glucometer 233 273 Random Glucose Calcium Magnesium Hep C Ab Diagnostic >11.0 H HCV RNA PCR w/Genot Rflx Hcv not detected Liver Fibrosis Interp 10/03/18 10/04/18 10/04/18 20:57 05:24 06:00 Sodium 130 L Potassium 4.6 Chloride 93 L Carbon Dioxide 29 Anion Gap 9 BUN 91.4 H Creatinine 3.3 H Est GFR (CKD-EPI)AfAm 20.77 Est GFR (CKD-EPI)NonAf 17.92 POC Glucometer 384 226 Random Glucose 218 H Calcium 7.6 L Magnesium 2.6 H Hep C Ab Diagnostic HCV RNA PCR w/Genot Rflx Liver Fibrosis Interp S1 s2 RRR Lungs decreased breath sounds abd- soft, NT edema decreased PLAN CHF--on HD leucocytosis-- blood cultures , ua and urine culture-- negative ID eval noted-- on Zosyn -- dc today on solumedrol Hep C ab positive, RNA PCR NOT DETECTED has splenic lesion-- can not do contrast imaging due to decreased renal function Dialysis per renal Rheumatology eval for elevated histone antibodies Problem List - Problems (1) BRET (acute kidney injury) Code(s): N17.9 - ACUTE KIDNEY FAILURE, UNSPECIFIED (2) Acute and chronic respiratory failure Code(s): J96.20 - ACUTE AND CHR RESP FAILURE, UNSP W HYPOXIA OR HYPERCAPNIA (3) [id number] kidney injury Code(s): N17.9 - ACUTE KIDNEY FAILURE, UNSPECIFIED; N18.9 - CHRONIC KIDNEY DISEASE, UNSPECIFIED (4) CHF exacerbation Code(s): I50.9 - HEART FAILURE, UNSPECIFIED (5) Diabetes Code(s): E11.9 - TYPE 2 DIABETES MELLITUS WITHOUT COMPLICATIONS
--- NOTE | 2018-10-04 11:24 | PN ---
Physical Exam: SUBJECTIVE: Patient seen and examined at bedside. No overnight events Continues to require high flow, weaning down with saturation maintained above 90 %. Pt complains of difficulty sleeping overnight, no further complaints OBJECTIVE: Vital Signs Period Temp Pulse Resp BP Sys/Bansal Pulse Ox Last 24 Hr 97.2 F-98.5 F 52-65 11-28 106-189/41-92 95-100 GENERAL: The patient is awake, alert, and fully oriented, in no acute distress. On high flow HEAD: Normal with no signs of trauma. EYES: PERRL, extraocular movements intact, sclera anicteric, conjunctiva clear. No ptosis. ENT: Ears normal, nares patent, oropharynx clear without exudates, moist mucous membranes. NECK: Trachea midline, full range of motion, supple. LUNGS: Breath sounds equal, clear to auscultation bilaterally, no wheezes, no crackles, no accessory muscle use. On high flow HEART: Regular rate and rhythm, S1, S2 without murmur, rub or gallop. No pitting edema ABDOMEN: Soft, nontender, nondistended, normoactive bowel sounds, no guarding, no rebound, no hepatosplenomegaly, no masses. EXTREMITIES: 2+ pulses, warm, well-perfused, no edema. NEUROLOGICAL: Cranial nerves II through XII grossly intact. Normal speech, gait not observed. PSYCH: Normal mood, normal affect. SKIN: Warm, dry, normal turgor, no rashes or lesions noted Laboratory Results - last 24 hr 09/27/18 10/03/18 10/03/18 15:20 12:26 16:52 Sodium Potassium Chloride Carbon Dioxide Anion Gap BUN Creatinine Est GFR (CKD-EPI)AfAm Est GFR (CKD-EPI)NonAf POC Glucometer 233 273 Random Glucose Calcium Magnesium Hep C Ab Diagnostic >11.0 H HCV RNA PCR w/Genot Rflx Hcv not detected Liver Fibrosis Interp 10/03/18 10/04/18 10/04/18 20:57 05:24 06:00 Sodium 130 L Potassium 4.6 Chloride 93 L Carbon Dioxide 29 Anion Gap 9 BUN 91.4 H Creatinine 3.3 H Est GFR (CKD-EPI)AfAm 20.77 Est GFR (CKD-EPI)NonAf 17.92 POC Glucometer 384 226 Random Glucose 218 H Calcium 7.6 L Magnesium 2.6 H Hep C Ab Diagnostic HCV RNA PCR w/Genot Rflx Liver Fibrosis Interp 10/04/18 11:16 Sodium Potassium Chloride Carbon Dioxide Anion Gap BUN Creatinine Est GFR (CKD-EPI)AfAm Est GFR (CKD-EPI)NonAf POC Glucometer 288 Random Glucose Calcium Magnesium Hep C Ab Diagnostic HCV RNA PCR w/Genot Rflx Liver Fibrosis Interp Active Medications Generic Name Dose Route Start Last Admin Trade Name Freq PRN Reason Stop Dose Admin Artificial Tears 2 drop 09/20/18 16:13 Artificial Tears OU Q8H PRN DRY EYES Atorvastatin Calcium 20 mg 09/17/18 22:00 10/03/18 21:37 Lipitor - PO 20 mg HS [facility] Administration Calcium Acetate 667 mg 09/25/18 17:30 10/04/18 09:10 Phoslo - PO 667 mg TIDCM [facility] Administration Clonidine 0.2 mg 10/03/18 10:41 10/04/18 09:11 Catapres - PO 0.2 mg BID [facility] Administration Heparin Sodium (Porcine) 5,000 unit 10/01/18 14:45 10/02/18 05:55 Heparin - SQ 5,000 unit TID [facility] Administration Piperacillin Sod/Tazobactam 50 mls @ 100 mls/hr 09/26/18 13:45 10/04/18 09:11 Sod 2.25 gm/ Dextrose IVPB 100 mls/hr Q8H-IV [facility] Administration Protocol Insulin Aspart 1 vial 09/17/18 16:30 10/04/18 11:17 Novolog Vial Sliding Scale - SQ 7 units ACHS [facility] Administration Protocol Insulin Detemir 10 units 09/17/18 22:00 10/03/18 21:37 Levemir Vial SQ 10 unit HS [facility] Administration Labetalol HCl 400 mg 09/19/18 10:40 10/04/18 09:11 Normodyne - PO 400 mg BID [facility] Administration Methadone HCl 40 mg/ Methadone 60 mg 09/27/18 06:30 10/04/18 05:47 HCl 20 mg PO 60 mg DAILY@0600 [facility] Administration Methylprednisolone Sodium Succinate 40 mg 10/04/18 18:00 Solu-Medrol - IVPUSH Q8H-IV [facility] Nifedipine 60 mg 10/03/18 11:15 10/04/18 09:10 Procardia Xl - PO 60 mg DAILY [facility] Administration Pantoprazole Sodium 40 mg 10/01/18 10:00 10/04/18 09:10 Protonix - PO 40 mg DAILY [facility] Administration Ranitidine HCl 150 mg 10/02/18 10:00 10/04/18 09:10 Zantac - PO 150 mg BID [facility] Administration Sodium Chloride 2 spray 09/23/18 15:50 09/23/18 22:20 [place] Nasal [place] - NS 2 spray Q8H PRN Administration NASAL CONGESTION ASSESSMENT/PLAN: Discussed case with Rheum, Dr. Moore, states C3, C4, CH50, Anti DS DNA should be ordered and will assess pt when results return Pending renal biopsy results Continue weaning off high flow. Titrate to O2 over 90%. Trial NC BUN and Cr show elevation, defer to Nephro regarding treatment options and potential need for HD continue labetalol and clonidine started Nifedpine ER 60mg Daily for additional BP control Cardiovascular -patient is being treated for diastolic CHF exacerbation -monitor daily weights/I's/O's -Discontinue lasix drip as per nephro -does not appear that this is helping resolve patient's overloaded status, may need dialysis -echo EF 65, RV pressure 32, no significant abnormalities -discontinue hydralazine for possible drug induced lupus -cardiology following, Nifedpine ER 60mg Daily added for additional BP control Pulmonary - ICU and monitor on high flow, continue to wean. Likely start NC tmr -treating for possible bilateral pneumonia -solumedrol 40q6h on zosyn -ID consultation -CXR in AM -duonebs Renal -patient has azotemia and worsening of his chronic kidney disease -HD started yesterday, will continue today and tmr as per nephro -repeat BMP in AM -renal following -renal biopsy pending FEN -no standing fluids -replete lytes as necessary in AM DVT prophylaxis SCDs, stopped heparin for renal biopsy tmr Disposition -monitor in ICU Visit type - Emergency Visit Emergency Visit: No - New Patient This patient is new to me today: No - Critical Care Critical Care patient: Yes Total Critical Care Time (in minutes): 40 Critical Care Statement: The care of this patient involved high complexity decision making to prevent further life threatening deterioration of the patient 's condition and/or to evaluate & treat vital organ system(s) failure or risk of failure.
--- NOTE | 2018-10-04 11:52 | PN ---
Teaching Attending Note Name of Resident: Skip Day ATTENDING PHYSICIAN STATEMENT I saw and evaluated the patient. I reviewed the resident's note and discussed the case with the resident. I agree with the resident's findings and plan as documented. SUBJECTIVE: Pt seen and examined in the ICU. Remains on HFOT 40L/min, 40% FiO2. States breathing continues to improve. Minimal cough. Anti-histone Ab positive. OBJECTIVE: Vital Signs Period Temp Pulse Resp BP Sys/Bansal Pulse Ox Last 24 Hr 97.2 F-98.5 F 52-65 11-22 106-189/41-92 95-98 Intake & Output 10/01/18 10/02/18 10/03/18 10/04/18 23:59 23:59 23:59 23:59 Intake Total 465 740 610 100 Output Total 1000 1500 850 Balance -535 -760 -240 100 Weight 82.69 kg 77.02 kg 77.02 kg Gen: less tachypneic Heart: RRR Lung: decreased breath sounds at the bases Abd: soft, nontender Ext: no edema CBC, BMP 10/03/18 05:31 10/04/18 06:00 Active Medications Artificial Tears (Artificial Tears) 2 drop OU Q8H PRN PRN Reason: DRY EYES Atorvastatin Calcium (Lipitor -) 20 mg PO HS [facility] Last Admin: 10/03/18 21:37 Dose: 20 mg Calcium Acetate (Phoslo -) 667 mg PO TIDCM [facility] Last Admin: 10/04/18 09:10 Dose: 667 mg Clonidine (Catapres -) 0.2 mg PO BID [facility] Last Admin: 10/04/18 09:11 Dose: 0.2 mg Heparin Sodium (Porcine) (Heparin -) 5,000 unit SQ TID [facility] Last Admin: 10/02/18 05:55 Dose: 5,000 unit Piperacillin Sod/Tazobactam (Sod 2.25 gm/ Dextrose) 50 mls @ 100 mls/hr IVPB Q8H-IV [facility]; Protocol Last Admin: 10/04/18 09:11 Dose: 100 mls/hr Insulin Aspart (Novolog Vial Sliding Scale -) 1 vial SQ ACHS [facility]; Protocol Last Admin: 10/04/18 11:17 Dose: 7 units Insulin Detemir (Levemir Vial) 10 units SQ HS [facility] Last Admin: 10/03/18 21:37 Dose: 10 unit Labetalol HCl (Normodyne -) 400 mg PO BID [facility] Last Admin: 10/04/18 09:11 Dose: 400 mg Methadone HCl 40 mg/ Methadone (HCl 20 mg) 60 mg PO DAILY@0600 [facility] Last Admin: 10/04/18 05:47 Dose: 60 mg Methylprednisolone Sodium Succinate (Solu-Medrol -) 40 mg IVPUSH Q8H-IV [facility] Nifedipine (Procardia Xl -) 60 mg PO DAILY [facility] Last Admin: 10/04/18 09:10 Dose: 60 mg Pantoprazole Sodium (Protonix -) 40 mg PO DAILY [facility] Last Admin: 10/04/18 09:10 Dose: 40 mg Ranitidine HCl (Zantac -) 150 mg PO BID [facility] Last Admin: 10/04/18 09:10 Dose: 150 mg Sodium Chloride ([place] Nasal [place] -) 2 spray NS Q8H PRN PRN Reason: NASAL CONGESTION Last Admin: 09/23/18 22:20 Dose: 2 spray ASSESSMENT AND PLAN: Acute Hypoxic Respiratory Failure r/o Acute Pneumonitis/Interstitial Lung Disease r/o Pneumonia Acute on Chronic Diastolic Heart Failure Acute on Chronic Renal Failure requiring HD h/o Lung Ca HTN DM - taper medrol - continue empiric antibiotics - inhaled bronchodilators - lasix - monitor urine output, creatinine - HD per renal - f/u renal biopsy - taper HFOT to keep SpO2 >90%, transition to nasal cannula - PO as tolerated - DVT prophylaxis - continue ICU monitoring critical care time spent in reviewing chart, evaluating patient and formulating plan 35 min
[2018-10-04 12:29] LABS: HEMATOCRIT 24.9 % (35.4-49); MCHC 32.2 g/dl (32.0-35.9); MEAN CELL VOLUME 86.9 fl (80-96); PLATELET COUNT 242 K/MM3 (134-434); RBC 2.87 M/mm3 (4.00-5.60); WHITE BLOOD COUNT 17.9 K/mm3 (4.0-10.0)
--- NOTE | 2018-10-04 12:31 | PN ---
Progress Note (short form) - Note Progress Note: Renal follow up for BRET Pt seen and examined in the ICU awake and alert no acute complaints on high flow O2 no sob, cp, abd pain no flank pain no hematuira making urine Vital Signs Temperature 97.4 F L 10/04/18 10:00 Pulse Rate 61 10/04/18 12:00 Respiratory Rate 13 10/04/18 12:00 Blood Pressure 195/63 H 10/04/18 12:00 O2 Sat by Pulse Oximetry (%) 95 10/04/18 10:20 Intake & Output 10/01/18 10/02/18 10/03/18 10/04/18 23:59 23:59 23:59 23:59 Intake Total 465 740 610 100 Output Total 1000 1500 850 Balance -535 -760 -240 100 Weight 82.69 kg 77.02 kg 77.02 kg NAD RRR, no M/R BS improved no edema CBC, BMP 10/04/18 06:00 Current Medications Artificial Tears (Artificial Tears) 2 drop OU Q8H PRN PRN Reason: DRY EYES Atorvastatin Calcium (Lipitor -) 20 mg PO HS [facility] Last Admin: 10/03/18 21:37 Dose: 20 mg Calcium Acetate (Phoslo -) 667 mg PO TIDCM [facility] Last Admin: 10/04/18 09:10 Dose: 667 mg Clonidine (Catapres -) 0.2 mg PO BID [facility] Last Admin: 10/04/18 09:11 Dose: 0.2 mg Heparin Sodium (Porcine) (Heparin -) 5,000 unit SQ TID [facility] Last Admin: 10/02/18 05:55 Dose: 5,000 unit Piperacillin Sod/Tazobactam (Sod 2.25 gm/ Dextrose) 50 mls @ 100 mls/hr IVPB Q8H-IV [facility]; Protocol Last Admin: 10/04/18 09:11 Dose: 100 mls/hr Insulin Aspart (Novolog Vial Sliding Scale -) 1 vial SQ ACHS [facility]; Protocol Last Admin: 10/04/18 11:17 Dose: 7 units Insulin Detemir (Levemir Vial) 10 units SQ HS [facility] Last Admin: 10/03/18 21:37 Dose: 10 unit Labetalol HCl (Normodyne -) 400 mg PO BID [facility] Last Admin: 10/04/18 09:11 Dose: 400 mg Methadone HCl 40 mg/ Methadone (HCl 20 mg) 60 mg PO DAILY@0600 [facility] Last Admin: 10/04/18 05:47 Dose: 60 mg Methylprednisolone Sodium Succinate (Solu-Medrol -) 40 mg IVPUSH Q8H-IV [facility] Nifedipine (Procardia Xl -) 60 mg PO DAILY [facility] Last Admin: 10/04/18 09:10 Dose: 60 mg Pantoprazole Sodium (Protonix -) 40 mg PO DAILY [facility] Last Admin: 10/04/18 09:10 Dose: 40 mg Ranitidine HCl (Zantac -) 150 mg PO BID [facility] Last Admin: 10/04/18 09:10 Dose: 150 mg Sodium Chloride ([place] Nasal [place] -) 2 spray NS Q8H PRN PRN Reason: NASAL CONGESTION Last Admin: 09/23/18 22:20 Dose: 2 spray 68 year old gentleman with hx of of hypertension, DM on insulin, PVD s/ p Le stents, BPH, Hx of Lung cancer s/p resection who presented with SOB and noted to have BUN/Cr of 79/3.2. #Acute shortness of breath form diastolic HF + PNA #Peripheral edema #Acute on chronic renal insufficiency #Anemia #Hypertension #BPH no acute need for BURR PICKER today however BUN/Cr rinsing off dialysis Cr was 3.2 in August, 2.1 in February pt may possibly require dialysis tomorrow based on labs and clinical status s/p renal biopsy today, expect result by Monday or Monday UPCR is 3.2, CHICHI negative, ANCA is negative, anti-histone ab is moderate positive would avoid any further hydralazine use Urine Legionella Ag negative CT of the chest consistent with PNA Renal imaging showed no obstruction lesion on spleen, would need CT with contrast to evaluate but should wait until renal function is improved Trend daily weights continue labetalol and clonidine started Nifedpine ER 60mg Daily for additional BP control Bed rest today, monitor urine for hematuria. Dariusz Iniguez DO
--- NOTE | 2018-10-04 13:43 | PN ---
Progress Note (short form) - Note Progress Note: he is tired, not sleeping well at night no sob Vital Signs Period Temp Pulse Resp BP Sys/Bansal Pulse Ox Last 24 Hr 97.2 F-98.5 F 52-65 11-22 106-195/41-92 95-98 no thrush cor-rrr lungs decreased bs at bases abd soft, nt ext no edema CBC, BMP 10/04/18 05:20 10/04/18 06:00 Microbiology 09/26/18 12:40 Blood - Peripheral Venous Blood Culture - Final NO GROWTH AFTER 5 DAYS INCUBATION 09/26/18 12:35 Blood - Peripheral Venous Blood Culture - Final NO GROWTH AFTER 5 DAYS INCUBATION 09/26/18 15:15 Urine - Urine - Catheterized Urine Culture - Final NO GROWTH OBTAINED 09/23/18 14:35 Urine For Antigen Detection Legionella Antigen - Final 09/23/18 14:35 Urine For Antigen Detection Streptococcus pneumoniae Antigen (M - Final 09/17/18 17:05 Blood - Peripheral Venous Blood Culture - Final NO GROWTH AFTER 5 DAYS INCUBATION 09/17/18 16:00 Blood - Peripheral Venous Blood Culture - Final NO GROWTH AFTER 5 DAYS INCUBATION 09/20/18 07:00 Urine For Antigen Detection Legionella Antigen - Final 09/20/18 07:00 Urine For Antigen Detection Streptococcus pneumoniae Antigen (M - Final hiv negative hisone antibody positive a/p ?pneumonia- zosyn day #8, d/c today leukocytosis may be secondary to steroids ?inflammatory reaction- ?hydralazine, now on steroids histone antibody positive heart failure- per cardiology BRET/ckd dialysis d/noman, s/p renal biopsy today diabetes observe off antibioitcs d/w ICU team Problem List - Problems (1) Leukocytosis Code(s): D72.829 - ELEVATED WHITE BLOOD CELL COUNT, UNSPECIFIED (2) Pneumonia Code(s): J18.9 - PNEUMONIA, UNSPECIFIED ORGANISM (3) Acute and chronic respiratory failure Code(s): J96.20 - ACUTE AND CHR RESP FAILURE, UNSP W HYPOXIA OR HYPERCAPNIA (4) [id number] kidney injury Code(s): N17.9 - ACUTE KIDNEY FAILURE, UNSPECIFIED; N18.9 - CHRONIC KIDNEY DISEASE, UNSPECIFIED (5) Diabetes Code(s): E11.9 - TYPE 2 DIABETES MELLITUS WITHOUT COMPLICATIONS (6) History of lung cancer Code(s): Z85.118 - PERSONAL HISTORY OF MALIGNANT NEOPLASM OF BRONCHUS AND LUNG
[2018-10-04] MEDS: HEPARIN NA (PORCINE) 5,000 UNITS/ML 1ML VIAL SQ SCH ×2 (14:49→21:25)
--- NOTE | 2018-10-04 15:38 | PN ---
Progress Note (short form) - Note Progress Note: s: no chest pain, palps, dizziness, sob Current Medications Artificial Tears (Artificial Tears) 2 drop OU Q8H PRN PRN Reason: DRY EYES Atorvastatin Calcium (Lipitor -) 20 mg PO HS [facility] Last Admin: 10/03/18 21:37 Dose: 20 mg Calcium Acetate (Phoslo -) 667 mg PO TIDCM [facility] Last Admin: 10/04/18 12:53 Dose: 667 mg Clonidine (Catapres -) 0.2 mg PO BID [facility] Last Admin: 10/04/18 09:11 Dose: 0.2 mg Heparin Sodium (Porcine) (Heparin -) 5,000 unit SQ TID [facility] Last Admin: 10/04/18 14:49 Dose: 5,000 unit Insulin Aspart (Novolog Vial Sliding Scale -) 1 vial SQ [facility]; Protocol Last Admin: 10/04/18 11:17 Dose: 7 units Insulin Detemir (Levemir Vial) 10 units SQ [facility] Last Admin: 10/03/18 21:37 Dose: 10 unit Labetalol HCl (Normodyne -) 400 mg PO BID [facility] Last Admin: 10/04/18 09:11 Dose: 400 mg Methadone HCl 40 mg/ Methadone (HCl 20 mg) 60 mg PO DAILY@0600 [facility] Last Admin: 10/04/18 05:47 Dose: 60 mg Methylprednisolone Sodium Succinate (Solu-Medrol -) 40 mg IVPUSH Q8H-IV [facility] Nifedipine (Procardia Xl -) 60 mg PO DAILY [facility] Last Admin: 10/04/18 09:10 Dose: 60 mg Pantoprazole Sodium (Protonix -) 40 mg PO DAILY [facility] Last Admin: 10/04/18 09:10 Dose: 40 mg Ranitidine HCl (Zantac -) 150 mg PO BID [facility] Last Admin: 10/04/18 09:10 Dose: 150 mg Sodium Chloride ([place] Nasal [place] -) 2 spray NS Q8H PRN PRN Reason: NASAL CONGESTION Last Admin: 09/23/18 22:20 Dose: 2 spray Vital Signs Period Temp Pulse Resp BP Sys/Bansal Pulse Ox Last 24 Hr 97.2 F-98.1 F 52-65 11-22 106-195/41-92 85-98 Constitutional: Yes: Well Nourished, No Distress, Calm Cardiovascular: Yes: Regular Rate and Rhythm, S1, S2. No: JVD, Gallop, Murmur Respiratory: Yes: Regular, Rales (bases). No: Accessory Muscle Use Edema: Yes (1+ pedal) Neurological: Yes: Alert, Oriented Psychiatric: No: Agitated no jaundice, diaphoresis Assessment/Plan mibi 2015 no ischemia, nl EF EKG: sinus, PVC, no ischemic changes echo 09/2018 nl LV function, mild MAC, tr MR, RVSP 32 mmHg CXR: extensive bilat infiltrates with R effusion, worse 68M h/o HTN, DM, HLD, PAD s/p femoral stent, prior smoker, R sided lung ca s/p partial resection p/w shortness of breath: Shortness of breath, PNA, acute diastolic CHF exacerbation - likely multifactorial - h/o lung ca s/p resection, findings concerning for PNA - abx, nebs per primary, pulm - elevated BNP (7K) with congestion on CXR, likely component of HF - echo nl LV function, remainder unremarkable, no pulm HTN noted - Clinically improved w/ HD--vol mgmt plan per renal, HD cath removed BRET on CKD: started on HD: -likely component of cardiorenal syndrome -s/p kidney bx HTN: - holding home diuretic, valsartan - amlodipine stopped for edema - hydralazine stopped due to concern for drug induced lupus - cont labetolol, clonidine - dose increased, nifedipine started today HLD: - cont statin PAD: - cont statin - holding plavix for kidney bx - restart when able
--- NOTE | 2018-10-04 18:01 | PN ---
Physical Exam: SUBJECTIVE: Patient seen and examined OBJECTIVE: Vital Signs Period Temp Pulse Resp BP Sys/Bansal Pulse Ox Last 24 Hr 97.2 F-98.1 F 52-65 11-22 106-195/41-92 85-98 GENERAL: The patient is awake, alert, and fully oriented, in no acute distress. HEAD: Normal with no signs of trauma. EYES: PERRL, extraocular movements intact, sclera anicteric, conjunctiva clear. No ptosis. ENT: Ears normal, nares patent, oropharynx clear without exudates, moist mucous membranes. NECK: Trachea midline, full range of motion, supple. LUNGS: Breath sounds equal, clear to auscultation bilaterally, no wheezes, no crackles, no accessory muscle use. HEART: Regular rate and rhythm, S1, S2 without murmur, rub or gallop. ABDOMEN: Soft, nontender, nondistended, normoactive bowel sounds, no guarding, no rebound, no hepatosplenomegaly, no masses. EXTREMITIES: 2+ pulses, warm, well-perfused, no edema. NEUROLOGICAL: Cranial nerves II through XII grossly intact. Normal speech, gait not observed. PSYCH: Normal mood, normal affect. SKIN: Warm, dry, normal turgor, no rashes or lesions noted Laboratory Results - last 24 hr 10/03/18 10/04/18 10/04/18 20:57 05:20 05:24 WBC 17.9 H RBC 2.87 L Hgb 8.0 L Hct 24.9 L MCV 86.9 MCH 28.0 MCHC 32.2 RDW 14.0 Plt Count 242 D MPV 9.0 Sodium Potassium Chloride Carbon Dioxide Anion Gap BUN Creatinine Est GFR (CKD-EPI)AfAm Est GFR (CKD-EPI)NonAf POC Glucometer 384 226 Random Glucose Calcium Magnesium 10/04/18 10/04/18 10/04/18 06:00 11:16 17:06 WBC RBC Hgb Hct MCV MCH MCHC RDW Plt Count MPV Sodium 130 L Potassium 4.6 Chloride 93 L Carbon Dioxide 29 Anion Gap 9 BUN 91.4 H Creatinine 3.3 H Est GFR (CKD-EPI)AfAm 20.77 Est GFR (CKD-EPI)NonAf 17.92 POC Glucometer 288 324 Random Glucose 218 H Calcium 7.6 L Magnesium 2.6 H Active Medications Generic Name Dose Route Start Last Admin Trade Name Freq PRN Reason Stop Dose Admin Artificial Tears 2 drop 09/20/18 16:13 Artificial Tears OU Q8H PRN DRY EYES Atorvastatin Calcium 20 mg 09/17/18 22:00 10/03/18 21:37 Lipitor - PO 20 mg HS [facility] Administration Calcium Acetate 667 mg 09/25/18 17:30 10/04/18 17:03 Phoslo - PO 667 mg TIDCM [facility] Administration Clonidine 0.2 mg 10/03/18 10:41 10/04/18 09:11 Catapres - PO 0.2 mg BID [facility] Administration Heparin Sodium (Porcine) 5,000 unit 10/01/18 14:45 10/04/18 14:49 Heparin - SQ 5,000 unit TID [facility] Administration Insulin Aspart 1 vial 09/17/18 16:30 10/04/18 17:08 Novolog Vial Sliding Scale - SQ 9 units ACHS [facility] Administration Protocol Insulin Detemir 10 units 09/17/18 22:00 10/03/18 21:37 Levemir Vial SQ 10 unit HS [facility] Administration Labetalol HCl 400 mg 09/19/18 10:40 10/04/18 09:11 Normodyne - PO 400 mg BID [facility] Administration Methadone HCl 40 mg/ Methadone 60 mg 09/27/18 06:30 10/04/18 05:47 HCl 20 mg PO 60 mg DAILY@0600 [facility] Administration Methylprednisolone Sodium Succinate 40 mg 10/04/18 18:00 10/04/18 17:03 Solu-Medrol - IVPUSH 40 mg Q8H-IV [facility] Administration Nifedipine 60 mg 10/03/18 11:15 10/04/18 09:10 Procardia Xl - PO 60 mg DAILY [facility] Administration Pantoprazole Sodium 40 mg 10/01/18 10:00 10/04/18 09:10 Protonix - PO 40 mg DAILY [facility] Administration Ranitidine HCl 150 mg 10/02/18 10:00 10/04/18 09:10 Zantac - PO 150 mg BID [facility] Administration Sodium Chloride 2 spray 09/23/18 15:50 09/23/18 22:20 [place] Nasal [place] - NS 2 spray Q8H PRN Administration NASAL CONGESTION ASSESSMENT/PLAN:
[2018-10-04] MEDS ORDERED: MELATONIN 5 MG TABLETS PO PRN (18:08)
[2018-10-04] MEDS: ATORVASTATIN CA 20 MG TABLET (FP) PO SCH (21:24)
[2018-10-04] MEDS: INSULIN (LEVEMIR) 100 UNITS/ML UNITS SQ SCH (21:27)
[2018-10-05] MEDS: methylPREDNISolone NA SUCC 40 MG/1 ML VIAL IVPUSH SCH ×3 (01:00→18:06)
[2018-10-05] MEDS: ZOLPIDEM TARTRATE 5 MG TABLET PO PRN ×2 (01:08→21:05)
[2018-10-05] MEDS ORDERED: METHADONE HCL 40 MG DISPERSABLE TABLET ONE (05:36)
[2018-10-05] MEDS ORDERED: METHADONE HCL 10 MG TABLET ONE (05:36)
[2018-10-05] MEDS: METHADONE 40 MG, METHADONE 20 MG PO SCH (05:39)
[2018-10-05] MEDS: HEPARIN NA (PORCINE) 5,000 UNITS/ML 1ML VIAL SQ SCH ×3 (05:40→21:06)
[2018-10-05] MEDS: INSULIN SLIDING SCALE (NOVOLOG) 1 VIAL SQ SCH ×4 (06:09→21:06)
[2018-10-05 07:36] LABS: HEMATOCRIT 24.3 % (35.4-49); MCH 28.3 pg (25.7-33.7); MEAN CELL VOLUME 85.8 fl (80-96); MEAN PLT VOLUME 8.4 fl (7.5-11.1); RBC 2.83 M/mm3 (4.00-5.60); RDW 14.1 % (11.9-15.9); WHITE BLOOD COUNT 21.1 K/mm3 (4.0-10.0)
[2018-10-05 08:03] LABS: PLATELET COUNT 291 K/MM3 (134-434)
[2018-10-05 08:06] LABS: ALBUMIN 2.1 g/dl (3.4-5.0); BILIRUBIN,TOTAL 0.4 mg/dL (0.2-1); CALCIUM 7.8 mg/dL (8.5-10.1); CREATININE 3.6 mg/dL (0.55-1.3); MAGNESIUM 2.5 mg/dL (1.8-2.4); PHOSPHOROUS 4.5 mg/dL (2.5-4.9); POTASSIUM 4.6 mmol/L (3.5-5.1); TOT PROT 5.2 g/dl (6.4-8.2)
[2018-10-05 08:18] LABS: BLOOD UREA NITROGEN 114.8 mg/dL (7-18)
[2018-10-05] MEDS: CALCIUM ACETATE 667 MG CAPSULE (FP) PO SCH ×3 (08:30→18:06)
--- NOTE | 2018-10-05 08:58 | PN ---
Progress Note, Physician Chief Complaint: feeling better TELE: NSR AM BP still high - Current Medication List Current Medications: Active Medications Artificial Tears (Artificial Tears) 2 drop OU Q8H PRN PRN Reason: DRY EYES Atorvastatin Calcium (Lipitor -) 20 mg PO HS [facility] Last Admin: 10/04/18 21:24 Dose: 20 mg Calcium Acetate (Phoslo -) 667 mg PO TIDCM [facility] Last Admin: 10/04/18 17:03 Dose: 667 mg Clonidine (Catapres -) 0.2 mg PO BID [facility] Last Admin: 10/04/18 21:25 Dose: 0.2 mg Heparin Sodium (Porcine) (Heparin -) 5,000 unit SQ TID [facility] Last Admin: 10/05/18 05:40 Dose: 5,000 unit Insulin Aspart (Novolog Vial Sliding Scale -) 1 vial SQ [facility]; Protocol Last Admin: 10/05/18 06:09 Dose: 7 units Insulin Detemir (Levemir Vial) 10 units SQ HS [facility] Last Admin: 10/04/18 21:27 Dose: 10 unit Labetalol HCl (Normodyne -) 400 mg PO BID [facility] Last Admin: 10/04/18 21:24 Dose: 400 mg Melatonin (Melatonin) 5 mg PO HS PRN PRN Reason: INSOMNIA Methadone HCl 40 mg/ Methadone (HCl 20 mg) 60 mg PO DAILY@0600 [facility] Last Admin: 10/05/18 05:39 Dose: 60 mg Methylprednisolone Sodium Succinate (Solu-Medrol -) 40 mg IVPUSH Q8H-IV [facility] Last Admin: 10/05/18 01:00 Dose: 40 mg Nifedipine (Procardia Xl -) 60 mg PO DAILY [facility] Last Admin: 10/04/18 09:10 Dose: 60 mg Pantoprazole Sodium (Protonix -) 40 mg PO DAILY [facility] Last Admin: 10/04/18 09:10 Dose: 40 mg Ranitidine HCl (Zantac -) 150 mg PO BID [facility] Last Admin: 10/04/18 21:25 Dose: 150 mg Sodium Chloride ([place] Nasal [place] -) 2 spray NS Q8H PRN PRN Reason: NASAL CONGESTION Last Admin: 09/23/18 22:20 Dose: 2 spray Zolpidem Tartrate (Ambien -) 5 mg PO HS PRN PRN Reason: INSOMNIA Last Admin: 10/05/18 01:08 Dose: 5 mg - Objective Vital Signs: Vital Signs Temperature 98.1 F 10/05/18 06:00 Pulse Rate 66 10/05/18 06:00 Respiratory Rate 22 H 10/05/18 06:00 Blood Pressure 191/65 H 10/05/18 06:00 O2 Sat by Pulse Oximetry (%) 93 L 10/04/18 19:49 Constitutional: Yes: No Distress Cardiovascular: Yes: Regular Rate and Rhythm Respiratory: Yes: CTA Bilaterally Gastrointestinal: Yes: Soft Edema: No Neurological: Yes: Alert Labs: CBC, BMP 10/05/18 07:20 10/05/18 07:20 INR, PTT INR 1.11 (0.83-1.09) H 09/17/18 12:23 - ....Imaging EKG: Image Reviewed Assessment/Plan Assessment/Plan mibi 2015 no ischemia, nl EF EKG: sinus, PVC, no ischemic changes echo 09/2018 nl LV function, mild MAC, tr MR, RVSP 32 mmHg CXR: extensive bilat infiltrates with R effusion, worse 68M h/o HTN, DM, HLD, PAD s/p femoral stent, prior smoker, R sided lung ca s/p partial resection p/w shortness of breath: Shortness of breath, PNA, acute diastolic CHF exacerbation: - likely multifactorial - h/o lung ca s/p resection, findings concerning for PNA - abx, nebs per primary, pulm - elevated BNP (7K) with congestion on CXR, likely component of HF - echo nl LV function, remainder unremarkable, no pulm HTN noted - Clinically improved w/ HD--vol mgmt plan per renal, HD cath removed BRET on CKD: started on HD -likely component of cardiorenal syndrome -s/p kidney bx HTN: still elevated - holding home diuretic, valsartan - amlodipine stopped for edema - hydralazine stopped due to concern for drug induced lupus - cont labetolol, clonidine -titrate Nifedipine HLD: - cont statin PAD: - cont statin - holding plavix for kidney bx - restart when able
[2018-10-05] MEDS: cloNIDine HCL 0.1 MG TABLET PO SCH ×2 (09:09→21:06)
[2018-10-05] MEDS: RANITIDINE HCL 150 MG TABLET (FP) PO SCH ×2 (09:09→21:06)
[2018-10-05] MEDS: PANTOPRAZOLE 40 MG TABLET (FP) PO SCH (09:09)
[2018-10-05] MEDS: LABETALOL HCL 200 MG TABLET (FP) PO SCH ×2 (09:10→21:05)
--- NOTE | 2018-10-05 09:10 | PN ---
Progress Note (short form) - Note Progress Note: he is tired, not sleeping well at night no sob still on high flow oxygen Vital Signs Period Temp Pulse Resp BP Sys/Bansal Pulse Ox Last 24 Hr 97.4 F-98.4 F 58-74 11-22 111-195/44-70 85-97 no thrush cor-rrr lungs decreased bs at bases abd soft,nt ext no edema CBC, BMP 10/05/18 07:20 10/05/18 07:20 Microbiology 09/26/18 12:40 Blood - Peripheral Venous Blood Culture - Final NO GROWTH AFTER 5 DAYS INCUBATION 09/26/18 12:35 Blood - Peripheral Venous Blood Culture - Final NO GROWTH AFTER 5 DAYS INCUBATION 09/26/18 15:15 Urine - Urine - Catheterized Urine Culture - Final NO GROWTH OBTAINED 09/23/18 14:35 Urine For Antigen Detection Legionella Antigen - Final 09/23/18 14:35 Urine For Antigen Detection Streptococcus pneumoniae Antigen (M - Final 09/17/18 17:05 Blood - Peripheral Venous Blood Culture - Final NO GROWTH AFTER 5 DAYS INCUBATION 09/17/18 16:00 Blood - Peripheral Venous Blood Culture - Final NO GROWTH AFTER 5 DAYS INCUBATION 09/20/18 07:00 Urine For Antigen Detection Legionella Antigen - Final 09/20/18 07:00 Urine For Antigen Detection Streptococcus pneumoniae Antigen (M - Final hiv negative histone antibody positive a/p completed 7 days zosyn remains on steroids leukocytosis may be secondary to steroids ?inflammatory reaction- ?hydralazine, now on steroids histone antibody positive heart failure- per cardiology BRET/ckd dialysis d/noman, s/p renal biopsy today worsening renal function, renal f/u diabetes observe off antibiotics repeat blood cultures consider repeat cxray f/u renal biopsy Problem List - Problems (1) Leukocytosis Code(s): D72.829 - ELEVATED WHITE BLOOD CELL COUNT, UNSPECIFIED (2) Pneumonia Code(s): J18.9 - PNEUMONIA, UNSPECIFIED ORGANISM (3) Acute and chronic respiratory failure Code(s): J96.20 - ACUTE AND CHR RESP FAILURE, UNSP W HYPOXIA OR HYPERCAPNIA (4) Nzhlb-[id number]-guajasi kidney injury Code(s): N17.9 - ACUTE KIDNEY FAILURE, UNSPECIFIED; N18.9 - CHRONIC KIDNEY DISEASE, UNSPECIFIED (5) Diabetes Code(s): E11.9 - TYPE 2 DIABETES MELLITUS WITHOUT COMPLICATIONS (6) History of lung cancer Code(s): Z85.118 - PERSONAL HISTORY OF MALIGNANT NEOPLASM OF BRONCHUS AND LUNG
[2018-10-05] MEDS: NIFEdipine E.R. 90 MG TABLET (FP) PO SCH (09:13)
--- NOTE | 2018-10-05 10:17 | PN ---
Progress Note, Physician Chief Complaint: The patient seen in ICU Examined in his room. reports mild shortness of breath. In need of high flow Oxygen. Quinones catheter in place. Putting out fairly good amounts of urine. Denies any chest pain, no shortness of breath. No palpitation. Renal Biopsy results pending. History of Present Illness: This is a 68 year old gentleman with hx of of hypertension, DM2 on insulin, PVD s/p Le stents, BPH, Hx of Lung cancer s/p resection. He presented with BRET and Acute diastolic heart failure. The patient has underlying CKD. Quinones catheter is draining clean yellow urine. - Current Medication List Current Medications: Active Medications Artificial Tears (Artificial Tears) 2 drop OU Q8H PRN PRN Reason: DRY EYES Atorvastatin Calcium (Lipitor -) 20 mg PO HS [facility] Last Admin: 10/04/18 21:24 Dose: 20 mg Calcium Acetate (Phoslo -) 667 mg PO TIDCM [facility] Last Admin: 10/05/18 08:30 Dose: 667 mg Clonidine (Catapres -) 0.2 mg PO BID [facility] Last Admin: 10/05/18 09:09 Dose: 0.2 mg Heparin Sodium (Porcine) (Heparin -) 5,000 unit SQ TID [facility] Last Admin: 10/05/18 05:40 Dose: 5,000 unit Insulin Aspart (Novolog Vial Sliding Scale -) 1 vial SQ [facility]; Protocol Last Admin: 10/05/18 06:09 Dose: 7 units Insulin Detemir (Levemir Vial) 10 units SQ HS [facility] Last Admin: 10/04/18 21:27 Dose: 10 unit Labetalol HCl (Normodyne -) 400 mg PO BID [facility] Last Admin: 10/05/18 09:10 Dose: 400 mg Melatonin (Melatonin) 5 mg PO HS PRN PRN Reason: INSOMNIA Methadone HCl 40 mg/ Methadone (HCl 20 mg) 60 mg PO DAILY@0600 [facility] Last Admin: 10/05/18 05:39 Dose: 60 mg Methylprednisolone Sodium Succinate (Solu-Medrol -) 40 mg IVPUSH Q8H-IV [facility] Last Admin: 10/05/18 09:11 Dose: 40 mg Nifedipine (Procardia Xl -) 90 mg PO DAILY [facility] Last Admin: 10/05/18 09:13 Dose: 90 mg Pantoprazole Sodium (Protonix -) 40 mg PO DAILY [facility] Last Admin: 10/05/18 09:09 Dose: 40 mg Ranitidine HCl (Zantac -) 150 mg PO BID [facility] Last Admin: 10/05/18 09:09 Dose: 150 mg Sodium Chloride ([place] Nasal [place] -) 2 spray NS Q8H PRN PRN Reason: NASAL CONGESTION Last Admin: 09/23/18 22:20 Dose: 2 spray Zolpidem Tartrate (Ambien -) 5 mg PO HS PRN PRN Reason: INSOMNIA Last Admin: 10/05/18 01:08 Dose: 5 mg - Objective Vital Signs: Vital Signs Temperature 98.1 F 10/05/18 06:00 Pulse Rate 58 L 10/05/18 08:00 Respiratory Rate 15 10/05/18 08:00 Blood Pressure 203/61 H 10/05/18 08:00 O2 Sat by Pulse Oximetry (%) 93 L 10/04/18 19:49 Constitutional: Yes: Anxious, Mild Distress Eyes: Yes: Conjunctiva Clear HENT: Yes: Normocephalic Neck: Yes: Trachea Midline Cardiovascular: Yes: S1, S2 Respiratory: Yes: Diminished, On Nasal O2, Poor Air Entry, SOB Gastrointestinal: Yes: Normal Bowel Sounds, Soft Genitourinary: Yes: Quinones Present. No: Hematuria Edema: No Neurological: Yes: Alert, Oriented Psychiatric: Yes: Alert Labs: CBC, BMP 10/05/18 07:20 10/05/18 07:20 INR, PTT INR 1.11 (0.83-1.09) H 09/17/18 12:23 Problem List - Problems (1) BRET (acute kidney injury) Code(s): N17.9 - ACUTE KIDNEY FAILURE, UNSPECIFIED (2) Acute and chronic respiratory failure Code(s): J96.20 - ACUTE AND CHR RESP FAILURE, UNSP W HYPOXIA OR HYPERCAPNIA (3) CHF exacerbation Code(s): I50.9 - HEART FAILURE, UNSPECIFIED (4) Chronic renal insufficiency, stage III (moderate) Code(s): N18.3 - CHRONIC KIDNEY DISEASE, STAGE 3 (MODERATE) (5) Diabetes Code(s): E11.9 - TYPE 2 DIABETES MELLITUS WITHOUT COMPLICATIONS (6) History of lung cancer Code(s): Z85.118 - PERSONAL HISTORY OF MALIGNANT NEOPLASM OF BRONCHUS AND LUNG (7) Normocytic anemia Code(s): D64.9 - ANEMIA, UNSPECIFIED Assessment/Plan This is a 68 year old gentleman with hx of of hypertension, DM on insulin, PVD s/p LE stents, BPH, Hx of Lung Cancer s/p resection who presented with SOB and noted to have BUN/Cr of 79/3.2. Acute shortness of breath form diastolic HF + Pna. Peripheral edema Acute on chronic renal insufficiency Anemia Hypertension BPH Patient's Azotemia is getting worse, in spite of decent urine output. There is clinical heart failure also. Will give acute HD today. Will need an acute HD catheter placed. Discussed with the patient, and the ICU resident. Will give 3 hours today and 3 hours tomorrow. Awaiting the Renal Biopsy result. Will follow closely. Kerline Mercedes MD
--- NOTE | 2018-10-05 10:51 | PN ---
Progress Note (short form) - Note Progress Note: pt seen/ examined in icu all f/u noted chart reviewed awake/ comfortable denies cp breathing stable-- on high flow increased wbc-- on steroids Vital Signs Temp 98.1 F 10/05/18 06:00 Pulse 61 10/05/18 10:00 Resp 15 10/05/18 10:00 BP 185/73 H 10/05/18 10:00 Pulse Ox 93 L 10/04/18 19:49 Intake & Output 10/04/18 10/04/18 10/05/18 11:59 23:59 11:59 Intake Total 100 765 200 Output Total 1200 300 Balance 100 -435 -100 Weight 169 lb 12.8 oz 197 lb 14.4 oz Intake: IVPB 50 50 Oral 50 715 200 Output: Urine 1200 300 Quinones 1200 300 Other: Voiding Method Indwelling Catheter Indwelling Catheter Indwelling Catheter Bowel Movement No No Yes # Bowel Movements 1 Weight Measurement Method [facility] Active Medications Artificial Tears (Artificial Tears) 2 drop OU Q8H PRN PRN Reason: DRY EYES Atorvastatin Calcium (Lipitor -) 20 mg PO HS [facility] Last Admin: 10/04/18 21:24 Dose: 20 mg Calcium Acetate (Phoslo -) 667 mg PO TIDCM [facility] Last Admin: 10/05/18 08:30 Dose: 667 mg Clonidine (Catapres -) 0.2 mg PO BID [facility] Last Admin: 10/05/18 09:09 Dose: 0.2 mg Heparin Sodium (Porcine) (Heparin -) 5,000 unit SQ TID [facility] Last Admin: 10/05/18 05:40 Dose: 5,000 unit Insulin Aspart (Novolog Vial Sliding Scale -) 1 vial SQ [facility]; Protocol Last Admin: 10/05/18 06:09 Dose: 7 units Insulin Detemir (Levemir Vial) 10 units SQ [facility] Last Admin: 10/04/18 21:27 Dose: 10 unit Labetalol HCl (Normodyne -) 400 mg PO BID [facility] Last Admin: 10/05/18 09:10 Dose: 400 mg Melatonin (Melatonin) 5 mg PO HS PRN PRN Reason: INSOMNIA Methadone HCl 40 mg/ Methadone (HCl 20 mg) 60 mg PO DAILY@0600 [facility] Last Admin: 10/05/18 05:39 Dose: 60 mg Methylprednisolone Sodium Succinate (Solu-Medrol -) 40 mg IVPUSH Q8H-IV [facility] Last Admin: 10/05/18 09:11 Dose: 40 mg Nifedipine (Procardia Xl -) 90 mg PO DAILY [facility] Last Admin: 10/05/18 09:13 Dose: 90 mg Pantoprazole Sodium (Protonix -) 40 mg PO DAILY [facility] Last Admin: 10/05/18 09:09 Dose: 40 mg Ranitidine HCl (Zantac -) 150 mg PO BID [facility] Last Admin: 10/05/18 09:09 Dose: 150 mg Sodium Chloride ([place] Nasal [place] -) 2 spray NS Q8H PRN PRN Reason: NASAL CONGESTION Last Admin: 09/23/18 22:20 Dose: 2 spray Zolpidem Tartrate (Ambien -) 5 mg PO HS PRN PRN Reason: INSOMNIA Last Admin: 10/05/18 01:08 Dose: 5 mg CBC, BMP 10/05/18 07:20 10/05/18 07:20 Renal Biopsy - Results pending Physical Exam S1 s2 RRR Lungs decreased breath sounds abd- soft, NT edema decreased Neuro- alert/ awake PLAN CHF--on HD leucocytosis-- blood cultures , ua and urine culture-- negative Dialysis per renal Continue present care off abx will follow Problem List - Problems (1) Pneumonia Code(s): J18.9 - PNEUMONIA, UNSPECIFIED ORGANISM (2) Acute and chronic respiratory failure Code(s): J96.20 - ACUTE AND CHR RESP FAILURE, UNSP W HYPOXIA OR HYPERCAPNIA (3) CHF exacerbation Code(s): I50.9 - HEART FAILURE, UNSPECIFIED (4) History of lung cancer Code(s): Z85.118 - PERSONAL HISTORY OF MALIGNANT NEOPLASM OF BRONCHUS AND LUNG (5) Diabetes Code(s): E11.9 - TYPE 2 DIABETES MELLITUS WITHOUT COMPLICATIONS (6) Chronic renal insufficiency, stage III (moderate) Code(s): N18.3 - CHRONIC KIDNEY DISEASE, STAGE 3 (MODERATE)
--- NOTE | 2018-10-05 11:45 | PN ---
Teaching Attending Note Name of Resident: Skip Day ATTENDING PHYSICIAN STATEMENT I saw and evaluated the patient. I reviewed the resident's note and discussed the case with the resident. I agree with the resident's findings and plan as documented. SUBJECTIVE: Patient seen and examined in the ICU. Remains on HFOT 40L/min, 50% FiO2. States breathing continues to improve. Minimal cough. Anti-histone Ab positive. Will need access for HD. OBJECTIVE: Intake & Output 10/02/18 10/03/18 10/04/18 10/05/18 23:59 23:59 23:59 23:59 Intake Total 740 610 865 200 Output Total 6042 855 3217 300 Balance -760 -240 -335 -100 Weight 169 lb 12.8 oz 169 lb 12.8 oz 197 lb 14.4 oz Last Vital Signs Temp Pulse Resp BP Pulse Ox 98.1 F 61 15 185/73 H 93 L 10/05/18 06:00 10/05/18 10:00 10/05/18 10:00 10/05/18 10:00 10/04/18 19:49 Active Medications Artificial Tears (Artificial Tears) 2 drop OU Q8H PRN PRN Reason: DRY EYES Atorvastatin Calcium (Lipitor -) 20 mg PO HS [facility] Last Admin: 10/04/18 21:24 Dose: 20 mg Calcium Acetate (Phoslo -) 667 mg PO TIDCM [facility] Last Admin: 10/05/18 08:30 Dose: 667 mg Clonidine (Catapres -) 0.2 mg PO BID [facility] Last Admin: 10/05/18 09:09 Dose: 0.2 mg Heparin Sodium (Porcine) (Heparin -) 5,000 unit SQ TID [facility] Last Admin: 10/05/18 05:40 Dose: 5,000 unit Insulin Aspart (Novolog Vial Sliding Scale -) 1 vial SQ ACHS [facility]; Protocol Last Admin: 10/05/18 11:15 Dose: 3 units Insulin Detemir (Levemir Vial) 10 units SQ HS [facility] Last Admin: 10/04/18 21:27 Dose: 10 unit Labetalol HCl (Normodyne -) 400 mg PO BID [facility] Last Admin: 10/05/18 09:10 Dose: 400 mg Melatonin (Melatonin) 5 mg PO HS PRN PRN Reason: INSOMNIA Methadone HCl 40 mg/ Methadone (HCl 20 mg) 60 mg PO DAILY@0600 [facility] Last Admin: 10/05/18 05:39 Dose: 60 mg Methylprednisolone Sodium Succinate (Solu-Medrol -) 40 mg IVPUSH Q8H-IV [facility] Last Admin: 10/05/18 09:11 Dose: 40 mg Nifedipine (Procardia Xl -) 90 mg PO DAILY [facility] Last Admin: 10/05/18 09:13 Dose: 90 mg Pantoprazole Sodium (Protonix -) 40 mg PO DAILY [facility] Last Admin: 10/05/18 09:09 Dose: 40 mg Ranitidine HCl (Zantac -) 150 mg PO BID [facility] Last Admin: 10/05/18 09:09 Dose: 150 mg Sodium Chloride ([place] Nasal [place] -) 2 spray NS Q8H PRN PRN Reason: NASAL CONGESTION Last Admin: 09/23/18 22:20 Dose: 2 spray Zolpidem Tartrate (Ambien -) 5 mg PO HS PRN PRN Reason: INSOMNIA Last Admin: 10/05/18 01:08 Dose: 5 mg Gen: Awake and alert, less tachypneic Heart: RRR Lung: Bibasilar rhonchi, no wheeze Abd: soft, nontender Ext: no edema ASSESSMENT AND PLAN: Acute Hypoxic Respiratory Failure r/o Acute Pneumonitis/Interstitial Lung Disease r/o Pneumonia Acute on Chronic Diastolic Heart Failure Acute on Chronic Renal Failure requiring HD h/o Lung Ca HTN DM - taper medrol - continue empiric antibiotics - inhaled bronchodilators - lasix - monitor urine output, creatinine - Will need access : HD per renal - f/u renal biopsy - taper HFOT to keep SpO2 >90%, transition to nasal cannula if tolerated - PO as tolerated - DVT prophylaxis - continue ICU monitoring Dr Deshpande Critical care time spent in reviewing chart, evaluating patient and formulating plan 36 min
--- NOTE | 2018-10-05 12:05 | PROC ---
Central Line Insertion Indication: Other (dialysis ) Risks and Benefits Explained: Yes Consent on Chart: Yes Central Line: Dialysis Cath, Dual Lumen Anesthesia: 1% Lidocaine Sterile Technique: Yes Ultrasound Guided Assistance: Yes Position: Right Internal Jugular Post Insertion: Yes: Bilateral Breath Sounds, Chest X-Ray Ordered Sterile Dressing Applied: Yes
[2018-10-05] MEDS: ATORVASTATIN CA 20 MG TABLET (FP) PO SCH (21:06)
[2018-10-05] MEDS: INSULIN (LEVEMIR) 100 UNITS/ML UNITS SQ SCH (21:06)
[2018-10-06] MEDS: methylPREDNISolone NA SUCC 40 MG/1 ML VIAL IVPUSH SCH ×3 (01:16→21:50)
[2018-10-06] MEDS ORDERED: LORazepam 2 MG/ML SDV VIAL IVPUSH ONE (02:52)
[2018-10-06] MEDS ORDERED: LABETALOL HCL 5 MG/1 ML (100MG/20 ML VIAL) IVPUSH ONE (04:09)
[2018-10-06 05:51] LABS: ARTERIAL BLD GAS O2 SATURATION 98.7 % (95-98); ARTERIAL BLOOD GAS BASE EXCESS 5.4 meq/l (-2-2); ARTERIAL BLOOD GAS PO2 115 mmHg (80-105); ARTERIAL BLOOD GAS pH 7.47 (7.35-7.45)
[2018-10-06 05:54] LABS: ALLENS TEST POSITIVE
[2018-10-06] MEDS: HEPARIN NA (PORCINE) 5,000 UNITS/ML 1ML VIAL SQ SCH ×3 (05:59→21:49)
[2018-10-06] MEDS ORDERED: METHADONE HCL 40 MG DISPERSABLE TABLET ONE (05:59)
[2018-10-06] MEDS ORDERED: METHADONE HCL 10 MG TABLET ONE (05:59)
[2018-10-06] MEDS: METHADONE 40 MG, METHADONE 20 MG PO SCH (05:59)
[2018-10-06] MEDS: INSULIN SLIDING SCALE (NOVOLOG) 1 VIAL SQ SCH ×4 (05:59→22:01)
--- NOTE | 2018-10-06 06:10 | PN ---
Progress Note (short form) - Note Progress Note: Patient noted to be increasingly agitated overnight. Patient was given 0.5mg Ativan IV push one time dose. Upon exam, patient is awake, restless, and oriented to person, and place. He is attempting to take off his gown, and remove his high-flow oxygen Attempts to verbally re-orient the patient were unsuccessful. Concern for hypercarbia; STAT ABG ordered- does not show acute increase or retaining of CO2 Patient continues to attempt to remove his gown. high flow oxygen mask, and climb out of bed. Nursing staff continue to re-orient the patient at bedside Concern for patient's own safety; will apply bilateral wrist restraints. Placing call to patient's son to further re-orient the patient.
[2018-10-06] MEDS: CALCIUM ACETATE 667 MG CAPSULE (FP) PO SCH ×3 (08:45→21:48)
--- NOTE | 2018-10-06 09:15 | PN ---
Progress Note (short form) - Note Progress Note: Pulm/CCM SUBJECTIVE: Patient seen and examined in the ICU. -tolerated HD yesterday, 3L taken off -some ICU delerium overnight OBJECTIVE: Vital Signs Temp 97.5 F L 10/06/18 08:00 Pulse 55 L 10/06/18 08:00 Resp 14 10/06/18 08:00 BP 203/60 H 10/06/18 08:00 Pulse Ox 92 L 10/05/18 19:33 Intake & Output 10/05/18 10/05/18 10/06/18 11:59 23:59 11:59 Intake Total 200 300 Output Total 300 700 600 Balance -100 -400 -600 Weight 89.766 kg 89.766 kg Intake: Oral 200 300 Output: Urine 300 700 600 Quinones 300 700 600 Other: Voiding Method Indwelling Catheter Indwelling Catheter Bowel Movement Yes No # Bowel Movements 1 Body Mass Index (BMI) 33.7 Weight Measurement Method Built in [facility] Built in [facility] Active Medications Generic Name Dose Route Start Last Admin Trade Name Freq PRN Reason Stop Dose Admin Artificial Tears 2 drop 09/20/18 16:13 Artificial Tears OU Q8H PRN DRY EYES Atorvastatin Calcium 20 mg 09/17/18 22:00 10/05/18 21:06 Lipitor - PO 20 mg HS [facility] Administration Calcium Acetate 667 mg 09/25/18 17:30 10/06/18 08:45 Phoslo - PO 667 mg TIDCM [facility] Administration Clonidine 0.2 mg 10/03/18 10:41 10/05/18 21:06 Catapres - PO 0.2 mg BID [facility] Administration Heparin Sodium (Porcine) 5,000 unit 10/01/18 14:45 10/06/18 05:59 Heparin - SQ 5,000 unit TID [facility] Administration Insulin Aspart 1 vial 09/17/18 16:30 10/06/18 05:59 Novolog Vial Sliding Scale - SQ 3 units ACHS [facility] Administration Protocol Insulin Detemir 10 units 09/17/18 22:00 10/05/18 21:06 Levemir Vial SQ 10 unit HS [facility] Administration Labetalol HCl 400 mg 09/19/18 10:40 10/05/18 21:05 Normodyne - PO 400 mg BID [facility] Administration Melatonin 5 mg 10/04/18 18:08 Melatonin PO HS PRN INSOMNIA Methadone HCl 40 mg/ Methadone 60 mg 09/27/18 06:30 10/06/18 05:59 HCl 20 mg PO 60 mg DAILY@0600 [facility] Administration Methylprednisolone Sodium Succinate 40 mg 10/04/18 18:00 10/06/18 01:16 Solu-Medrol - IVPUSH 40 mg Q8H-IV [facility] Administration Nifedipine 90 mg 10/05/18 10:00 10/05/18 09:13 Procardia Xl - PO 90 mg DAILY [facility] Administration Pantoprazole Sodium 40 mg 10/01/18 10:00 10/05/18 09:09 Protonix - PO 40 mg DAILY [facility] Administration Ranitidine HCl 150 mg 10/02/18 10:00 10/05/18 21:06 Zantac - PO 150 mg BID [facility] Administration Sodium Chloride 2 spray 09/23/18 15:50 09/23/18 22:20 [place] Nasal [place] - NS 2 spray Q8H PRN Administration NASAL CONGESTION Zolpidem Tartrate 5 mg 10/04/18 18:12 10/05/18 21:05 Ambien - PO 5 mg HS PRN Administration INSOMNIA Gen: Awake and alert, less tachypneic Heart: RRR Lung: Bibasilar crackles, clear anterior Abd: soft, nontender Ext: trace edema Neuro: grossly intact ASSESSMENT AND PLAN: Acute Hypoxic Respiratory Failure r/o Acute Pneumonitis/Interstitial Lung Disease r/o Pneumonia Acute on Chronic Diastolic Heart Failure Acute on Chronic Renal Failure requiring HD h/o Lung Ca HTN DM - taper medrol - continue empiric antibiotics - inhaled bronchodilators - HD as per renal - antihypertensive being managed by Cards, uptitrating - monitor urine output, creatinine - Will need access : HD per renal - f/u renal biopsy, path pending - taper HFOT to keep SpO2 >90%, transition to nasal cannula if tolerated - PO as tolerated - DVT prophylaxis - continue ICU monitoring Vicente MIRELES
[2018-10-06] MEDS: cloNIDine HCL 0.1 MG TABLET PO SCH ×2 (09:16→21:49)
[2018-10-06] MEDS: LABETALOL HCL 200 MG TABLET (FP) PO SCH ×2 (09:16→21:49)
[2018-10-06] MEDS: PANTOPRAZOLE 40 MG TABLET (FP) PO SCH (09:17)
[2018-10-06] MEDS: NIFEdipine E.R. 90 MG TABLET (FP) PO SCH ×2 (09:17→21:50)
--- NOTE | 2018-10-06 10:09 | PN ---
Progress Note, Physician Chief Complaint: HTN urgency History of Present Illness: no sob--much better no cp, palpit, syncope - Current Medication List Current Medications: Active Medications Artificial Tears (Artificial Tears) 2 drop OU Q8H PRN PRN Reason: DRY EYES Atorvastatin Calcium (Lipitor -) 20 mg PO HS [facility] Last Admin: 10/05/18 21:06 Dose: 20 mg Calcium Acetate (Phoslo -) 667 mg PO TIDCM [facility] Last Admin: 10/06/18 08:45 Dose: 667 mg Clonidine (Catapres -) 0.2 mg PO BID [facility] Last Admin: 10/06/18 09:16 Dose: 0.2 mg Heparin Sodium (Porcine) (Heparin -) 5,000 unit SQ TID [facility] Last Admin: 10/06/18 05:59 Dose: 5,000 unit Insulin Aspart (Novolog Vial Sliding Scale -) 1 vial SQ ACHS [facility]; Protocol Last Admin: 10/06/18 05:59 Dose: 3 units Insulin Detemir (Levemir Vial) 10 units SQ HS [facility] Last Admin: 10/05/18 21:06 Dose: 10 unit Labetalol HCl (Normodyne -) 400 mg PO BID [facility] Last Admin: 10/06/18 09:16 Dose: 400 mg Melatonin (Melatonin) 5 mg PO HS PRN PRN Reason: INSOMNIA Methadone HCl 40 mg/ Methadone (HCl 20 mg) 60 mg PO DAILY@0600 [facility] Last Admin: 10/06/18 05:59 Dose: 60 mg Methylprednisolone Sodium Succinate (Solu-Medrol -) 40 mg IVPUSH Q8H-IV [facility] Last Admin: 10/06/18 09:18 Dose: 40 mg Nifedipine (Procardia Xl -) 90 mg PO DAILY [facility] Last Admin: 10/06/18 09:17 Dose: 90 mg Pantoprazole Sodium (Protonix -) 40 mg PO DAILY [facility] Last Admin: 10/06/18 09:17 Dose: 40 mg Sodium Chloride ([place] Nasal [place] -) 2 spray NS Q8H PRN PRN Reason: NASAL CONGESTION Last Admin: 09/23/18 22:20 Dose: 2 spray Zolpidem Tartrate (Ambien -) 5 mg PO HS PRN PRN Reason: INSOMNIA Last Admin: 10/05/18 21:05 Dose: 5 mg - Objective Vital Signs: Vital Signs Temperature 97.5 F L 10/06/18 08:00 Pulse Rate 55 L 10/06/18 08:00 Respiratory Rate 14 10/06/18 08:00 Blood Pressure 203/60 H 10/06/18 08:00 O2 Sat by Pulse Oximetry (%) 92 L 10/05/18 19:33 Constitutional: Yes: Well Nourished, No Distress, Calm Cardiovascular: Yes: Regular Rate and Rhythm, S1, S2. No: Gallop, Murmur Respiratory: Yes: Regular, CTA Bilaterally. No: Accessory Muscle Use, Rales, Wheezes Extremities: No: Cold Edema: No Neurological: Yes: Alert, Oriented Psychiatric: No: Agitated Labs: CBC, BMP 10/05/18 07:20 10/05/18 07:20 INR, PTT INR 1.11 (0.83-1.09) H 09/17/18 12:23 Assessment/Plan EKG: sinus, PVC, no ischemic changes echo 09/2018 nl LV function, mild MAC, tr MR, RVSP 32 mmHg 70M h/o HTN, DM, HLD, PAD s/p femoral stent, prior smoker, R sided lung ca s/p partial resection p/w shortness of breath: Shortness of breath, PNA, acute diastolic CHF exacerbation: - likely multifactorial - h/o lung ca s/p resection, findings concerning for PNA - abx, nebs per primary, pulm - elevated BNP (7K) with congestion on CXR, likely component of HF - echo nl LV function, remainder unremarkable, no pulm HTN noted - Clinically improved w/ HD--vol mgmt plan per renal, HD cath removed HTN with htn urgency: - holding home diuretic, valsartan sec to BRET (? renal dysffxn will be reversible) - amlodipine stopped for edema - hydralazine stopped due to concern for drug induced lupus (elevated anti- histone ABs) - cont labetolol, clonidine: HRs 50s rarely, mostly higher--suspect will not tolerate higher doses of clonidine (drowsiness likely) - nifedipine incr'd to 90 qam on 10/05 - BPs uncontrolled, running highest in AM, possibly sec to loss of nifedipine effect from short half-life (also insomnia and agitation overnight may be contributing)--incr nifed to 90 bid - add nitrates (imdur 60 qd) BRET on CKD: started on HD -likely component of cardiorenal syndrome -s/p kidney bx HLD: - cont statin PAD: - cont statin - holding plavix for kidney bx - restart when able
[2018-10-06] MEDS ORDERED: cloNIDine HCL 0.1 MG TABLET PO PRN (10:23)
[2018-10-06] MEDS: ISOSORBIDE MONONITRATE 60 MG TAB.SR.24H (FP) PO SCH (11:17)
[2018-10-06] MEDS ORDERED: SODIUM CHLORIDE 250 ML IV PRN (12:18)
--- NOTE | 2018-10-06 12:18 | PN ---
Progress Note, Physician History of Present Illness: Pt seen and examined at bedside. He is awake and alert. He still gets shortness of breath but he feels that it is improved. - Current Medication List Current Medications: Active Medications Artificial Tears (Artificial Tears) 2 drop OU Q8H PRN PRN Reason: DRY EYES Atorvastatin Calcium (Lipitor -) 20 mg PO HS [facility] Last Admin: 10/05/18 21:06 Dose: 20 mg Calcium Acetate (Phoslo -) 667 mg PO TIDCM [facility] Last Admin: 10/06/18 08:45 Dose: 667 mg Clonidine (Catapres -) 0.2 mg PO BID [facility] Last Admin: 10/06/18 09:16 Dose: 0.2 mg Clonidine (Catapres -) 0.1 mg PO Q4H PRN PRN Reason: HYPERTENSION Heparin Sodium (Porcine) (Heparin -) 5,000 unit SQ TID [facility] Last Admin: 10/06/18 05:59 Dose: 5,000 unit Insulin Aspart (Novolog Vial Sliding Scale -) 1 vial SQ [facility]; Protocol Last Admin: 10/06/18 11:41 Dose: 5 units Insulin Detemir (Levemir Vial) 10 units SQ [facility] Last Admin: 10/05/18 21:06 Dose: 10 unit Isosorbide Mononitrate (Imdur -) 60 mg PO DAILY [facility] Last Admin: 10/06/18 11:17 Dose: 60 mg Labetalol HCl (Normodyne -) 400 mg PO BID [facility] Last Admin: 10/06/18 09:16 Dose: 400 mg Melatonin (Melatonin) 5 mg PO HS PRN PRN Reason: INSOMNIA Methadone HCl 40 mg/ Methadone (HCl 20 mg) 60 mg PO DAILY@0600 [facility] Last Admin: 10/06/18 05:59 Dose: 60 mg Methylprednisolone Sodium Succinate (Solu-Medrol -) 40 mg IVPUSH BID [facility] Nifedipine (Procardia Xl -) 90 mg PO BID [facility] Pantoprazole Sodium (Protonix -) 40 mg PO DAILY [facility] Last Admin: 10/06/18 09:17 Dose: 40 mg Sodium Chloride ([place] Nasal [place] -) 2 spray NS Q8H PRN PRN Reason: NASAL CONGESTION Last Admin: 09/23/18 22:20 Dose: 2 spray Zolpidem Tartrate (Ambien -) 5 mg PO HS PRN PRN Reason: INSOMNIA Last Admin: 10/05/18 21:05 Dose: 5 mg - Objective Vital Signs: Vital Signs Temperature 97.5 F L 10/06/18 08:00 Pulse Rate 55 L 10/06/18 08:00 Respiratory Rate 14 10/06/18 08:00 Blood Pressure 203/60 H 10/06/18 08:00 O2 Sat by Pulse Oximetry (%) 99 10/06/18 09:00 Constitutional: Yes: Calm Eyes: Yes: Conjunctiva Clear HENT: Yes: Atraumatic Neck: Yes: Supple Respiratory: Yes: On Nasal O2, Rhonchi Gastrointestinal: Yes: Soft Genitourinary: Yes: WNL Musculoskeletal: Yes: WNL Edema: Yes Edema: LLE: 1+, RLE: 1+ Neurological: Yes: Oriented Psychiatric: Yes: Oriented Labs: CBC, BMP 10/05/18 07:20 10/05/18 07:20 INR, PTT INR 1.11 (0.83-1.09) H 09/17/18 12:23 Problem List - Problems (1) BRET (acute kidney injury) Code(s): N17.9 - ACUTE KIDNEY FAILURE, UNSPECIFIED (2) CHF exacerbation Code(s): I50.9 - HEART FAILURE, UNSPECIFIED Assessment/Plan Current Medications Generic Name Dose Route Start Last Admin Trade Name Ruel PRN Reason Stop Dose Admin Artificial Tears 2 drop 09/20/18 16:13 Artificial Tears OU Q8H PRN DRY EYES Atorvastatin Calcium 20 mg 09/17/18 22:00 10/05/18 21:06 Lipitor - PO 20 mg HS [facility] Administration Calcium Acetate 667 mg 09/25/18 17:30 10/06/18 08:45 Phoslo - PO 667 mg TIDCM [facility] Administration Clonidine 0.2 mg 10/03/18 10:41 10/06/18 09:16 Catapres - PO 0.2 mg BID [facility] Administration Clonidine 0.1 mg 10/06/18 10:23 Catapres - PO Q4H PRN HYPERTENSION Heparin Sodium (Porcine) 5,000 unit 10/01/18 14:45 10/06/18 05:59 Heparin - SQ 5,000 unit TID [facility] Administration Insulin Aspart 1 vial 09/17/18 16:30 10/06/18 11:41 Novolog Vial Sliding Scale - SQ 5 units ACHS [facility] Administration Protocol Insulin Detemir 10 units 09/17/18 22:00 10/05/18 21:06 Levemir Vial SQ 10 unit HS [facility] Administration Isosorbide Mononitrate 60 mg 10/06/18 10:30 10/06/18 11:17 Imdur - PO 60 mg DAILY [facility] Administration Labetalol HCl 400 mg 09/19/18 10:40 10/06/18 09:16 Normodyne - PO 400 mg BID [facility] Administration Melatonin 5 mg 10/04/18 18:08 Melatonin PO HS PRN INSOMNIA Methadone HCl 40 mg/ Methadone 60 mg 09/27/18 06:30 10/06/18 05:59 HCl 20 mg PO 60 mg DAILY@0600 [facility] Administration Methylprednisolone Sodium Succinate 40 mg 10/06/18 22:00 Solu-Medrol - IVPUSH BID [facility] Nifedipine 90 mg 10/06/18 22:00 Procardia Xl - PO BID [facility] Pantoprazole Sodium 40 mg 10/01/18 10:00 10/06/18 09:17 Protonix - PO 40 mg DAILY [facility] Administration Sodium Chloride 2 spray 09/23/18 15:50 09/23/18 22:20 [place] Nasal [place] - NS 2 spray Q8H PRN Administration NASAL CONGESTION Zolpidem Tartrate 5 mg 10/04/18 18:12 10/05/18 21:05 Ambien - PO 5 mg HS PRN Administration INSOMNIA #Acute shortness of breath form diastolic HF + PNA #Peripheral edema #Acute on chronic renal insufficiency #Anemia #Hypertension #BPH #CHF Plan - HD today - cont to monitor renal function - no new labs, will order pre-HD labs - cardio input appreciated, bp meds adjusted - monitor bp - follow up biopsy
[2018-10-06] MEDS ORDERED: ALPRAZolam 0.25 MG TABLET PO PRN (15:32)
--- NOTE | 2018-10-06 15:35 | PN ---
Progress Note (short form) - Note Progress Note: pt seen/ examined chart reviewed events of last night noted pt says sometimes he takes xanax - helps a lot Vital Signs Temp 98 F 10/06/18 14:00 Pulse 61 10/06/18 15:05 Resp 14 10/06/18 14:00 BP 139/56 L 10/06/18 15:05 Pulse Ox 99 10/06/18 09:00 Intake & Output 10/05/18 10/06/18 10/06/18 23:59 11:59 23:59 Intake Total 300 540 20 Output Total 700 600 500 Balance -400 -60 -480 Weight 197 lb 14.4 oz Intake: IV 20 RFA 20 Oral 300 Oral Supplement 540 Output: Urine 700 600 500 Quinones 700 600 500 Other: Voiding Method Indwelling Catheter Indwelling Catheter Bowel Movement No Body Mass Index (BMI) 33.7 Weight Measurement Method Built in [facility] Active Medications Alprazolam (Xanax -) 0.25 mg PO BID PRN PRN Reason: ANXIETY Artificial Tears (Artificial Tears) 2 drop OU Q8H PRN PRN Reason: DRY EYES Atorvastatin Calcium (Lipitor -) 20 mg PO HS [facility] Last Admin: 10/05/18 21:06 Dose: 20 mg Calcium Acetate (Phoslo -) 667 mg PO TIDCM [facility] Last Admin: 10/06/18 12:48 Dose: 667 mg Clonidine (Catapres -) 0.2 mg PO BID [facility] Last Admin: 10/06/18 09:16 Dose: 0.2 mg Clonidine (Catapres -) 0.1 mg PO Q4H PRN PRN Reason: HYPERTENSION Heparin Sodium (Porcine) (Heparin -) 5,000 unit SQ TID [facility] Last Admin: 10/06/18 14:39 Dose: 5,000 unit Sodium Chloride (Normal Saline -) 250 mls @ 3,000 mls/hr IV PRN PRN PRN Reason: Hypotension during Dialysis Stop: 10/07/18 12:18 Insulin Aspart (Novolog Vial Sliding Scale -) 1 vial SQ [facility]; Protocol Last Admin: 10/06/18 11:41 Dose: 5 units Insulin Detemir (Levemir Vial) 10 units SQ [facility] Last Admin: 10/05/18 21:06 Dose: 10 unit Isosorbide Mononitrate (Imdur -) 60 mg PO DAILY [facility] Last Admin: 10/06/18 11:17 Dose: 60 mg Labetalol HCl (Normodyne -) 400 mg PO BID [facility] Last Admin: 10/06/18 09:16 Dose: 400 mg Melatonin (Melatonin) 5 mg PO HS PRN PRN Reason: INSOMNIA Methadone HCl 40 mg/ Methadone (HCl 20 mg) 60 mg PO DAILY@0600 [facility] Last Admin: 10/06/18 05:59 Dose: 60 mg Methylprednisolone Sodium Succinate (Solu-Medrol -) 40 mg IVPUSH BID [facility] Nifedipine (Procardia Xl -) 90 mg PO BID [facility] Pantoprazole Sodium (Protonix -) 40 mg PO DAILY [facility] Last Admin: 10/06/18 09:17 Dose: 40 mg Sodium Chloride ([place] Nasal [place] -) 2 spray NS Q8H PRN PRN Reason: NASAL CONGESTION Last Admin: 09/23/18 22:20 Dose: 2 spray Zolpidem Tartrate (Ambien -) 5 mg PO HS PRN PRN Reason: INSOMNIA Last Admin: 10/05/18 21:05 Dose: 5 mg CBC, BMP 10/05/18 07:20 10/05/18 07:20 Physical Exam Awake/ comfortable On High flow Oxygen S1 s2 RRR Lungs decreased breath sounds abd- soft, NT edema decreased Neuro- alert/ awake PLAN CHF/ arf on ckd--on HD leucocytosis-- blood cultures , ua and urine culture-- negative Dialysis per renal Continue present care off abx xanax for anxiety condition stable but remains gaurded will follow Problem List - Problems (1) Pneumonia Code(s): J18.9 - PNEUMONIA, UNSPECIFIED ORGANISM (2) Acute and chronic respiratory failure Code(s): J96.20 - ACUTE AND CHR RESP FAILURE, UNSP W HYPOXIA OR HYPERCAPNIA (3) CHF exacerbation Code(s): I50.9 - HEART FAILURE, UNSPECIFIED (4) History of lung cancer Code(s): Z85.118 - PERSONAL HISTORY OF MALIGNANT NEOPLASM OF BRONCHUS AND LUNG (5) Diabetes Code(s): E11.9 - TYPE 2 DIABETES MELLITUS WITHOUT COMPLICATIONS (6) Chronic renal insufficiency, stage III (moderate) Code(s): N18.3 - CHRONIC KIDNEY DISEASE, STAGE 3 (MODERATE)
[2018-10-06 18:15] LABS: HEMATOCRIT 23.4 % (35.4-49); HEMOGLOBIN 7.5 GM/dL (11.7-16.9); MCHC 31.9 g/dl (32.0-35.9); MEAN CELL VOLUME 87.9 fl (80-96); MEAN PLT VOLUME 8.8 fl (7.5-11.1); RBC 2.67 M/mm3 (4.00-5.60); WHITE BLOOD COUNT 19.6 K/mm3 (4.0-10.0)
[2018-10-06 18:28] LABS: PLATELET COUNT 285 K/MM3 (134-434)
[2018-10-06 18:46] LABS: ALBUMIN 2.1 g/dl (3.4-5.0); BILIRUBIN,TOTAL 0.4 mg/dL (0.2-1); BLOOD UREA NITROGEN 74.4 mg/dL (7-18); CALCIUM 7.7 mg/dL (8.5-10.1); CREATININE 2.8 mg/dL (0.55-1.3); POTASSIUM 4.7 mmol/L (3.5-5.1); TOT PROT 4.8 g/dl (6.4-8.2)
[2018-10-06] MEDS: ATORVASTATIN CA 20 MG TABLET (FP) PO SCH (21:49)
[2018-10-06] MEDS: INSULIN (LEVEMIR) 100 UNITS/ML UNITS SQ SCH (22:02)
[2018-10-07] MEDS ORDERED: METHADONE HCL 10 MG TABLET ONE (05:26)
[2018-10-07] MEDS ORDERED: METHADONE HCL 40 MG DISPERSABLE TABLET ONE (05:27)
[2018-10-07] MEDS: HEPARIN NA (PORCINE) 5,000 UNITS/ML 1ML VIAL SQ SCH ×3 (05:28→22:04)
[2018-10-07] MEDS: METHADONE 40 MG, METHADONE 20 MG PO SCH (05:28)
[2018-10-07] MEDS ORDERED: RAPID SEQUENCE INTUBATION KIT NR ONE (05:49)
[2018-10-07] MEDS: INSULIN SLIDING SCALE (NOVOLOG) 1 VIAL SQ SCH ×4 (06:22→22:08)
[2018-10-07] MEDS: CALCIUM ACETATE 667 MG CAPSULE (FP) PO SCH ×3 (08:52→16:52)
--- NOTE | 2018-10-07 09:20 | PN ---
Progress Note, Physician Chief Complaint: sob History of Present Illness: no sob no leg swelling less agitated last night no cp, palpit - Current Medication List Current Medications: Active Medications Alprazolam (Xanax -) 0.25 mg PO BID PRN PRN Reason: ANXIETY Artificial Tears (Artificial Tears) 2 drop OU Q8H PRN PRN Reason: DRY EYES Atorvastatin Calcium (Lipitor -) 20 mg PO HS [facility] Last Admin: 10/06/18 21:49 Dose: 20 mg Calcium Acetate (Phoslo -) 667 mg PO TIDCM [facility] Last Admin: 10/07/18 08:52 Dose: 667 mg Clonidine (Catapres -) 0.2 mg PO BID [facility] Last Admin: 10/06/18 21:49 Dose: 0.2 mg Clonidine (Catapres -) 0.1 mg PO Q4H PRN PRN Reason: HYPERTENSION Heparin Sodium (Porcine) (Heparin -) 5,000 unit SQ TID [facility] Last Admin: 10/07/18 05:28 Dose: 5,000 unit Sodium Chloride (Normal Saline -) 250 mls @ 3,000 mls/hr IV PRN PRN PRN Reason: Hypotension during Dialysis Stop: 10/07/18 12:18 Insulin Aspart (Novolog Vial Sliding Scale -) 1 vial SQ [facility]; Protocol Last Admin: 10/07/18 06:22 Dose: 9 units Insulin Detemir (Levemir Vial) 10 units SQ [facility] Last Admin: 10/06/18 22:02 Dose: 10 unit Isosorbide Mononitrate (Imdur -) 60 mg PO DAILY [facility] Last Admin: 10/06/18 11:17 Dose: 60 mg Labetalol HCl (Normodyne -) 400 mg PO BID [facility] Last Admin: 10/06/18 21:49 Dose: 400 mg Melatonin (Melatonin) 5 mg PO HS PRN PRN Reason: INSOMNIA Methadone HCl 40 mg/ Methadone (HCl 20 mg) 60 mg PO DAILY@0600 [facility] Last Admin: 10/07/18 05:28 Dose: 60 mg Methylprednisolone Sodium Succinate (Solu-Medrol -) 40 mg IVPUSH BID [facility] Last Admin: 10/06/18 21:50 Dose: 40 mg Nifedipine (Procardia Xl -) 90 mg PO BID [facility] Last Admin: 10/06/18 21:50 Dose: 90 mg Pantoprazole Sodium (Protonix -) 40 mg PO DAILY [facility] Last Admin: 10/06/18 09:17 Dose: 40 mg Sodium Chloride ([place] Nasal [place] -) 2 spray NS Q8H PRN PRN Reason: NASAL CONGESTION Last Admin: 09/23/18 22:20 Dose: 2 spray Zolpidem Tartrate (Ambien -) 5 mg PO HS PRN PRN Reason: INSOMNIA Last Admin: 10/05/18 21:05 Dose: 5 mg - Objective Vital Signs: Vital Signs Temperature 98.7 F 10/07/18 05:00 Pulse Rate 64 10/07/18 05:00 Respiratory Rate 18 10/07/18 05:00 Blood Pressure 142/51 L 10/07/18 05:00 O2 Sat by Pulse Oximetry (%) 98 10/07/18 00:25 Constitutional: Yes: Well Nourished, No Distress, Calm Cardiovascular: Yes: Regular Rate and Rhythm, S1, S2. No: Gallop, Murmur Respiratory: Yes: Regular, CTA Bilaterally. No: Accessory Muscle Use, Rales Extremities: No: Cold Edema: No Neurological: Yes: Alert, Oriented Psychiatric: No: Agitated Labs: CBC, BMP 10/06/18 17:30 10/06/18 17:30 INR, PTT INR 1.11 (0.83-1.09) H 09/17/18 12:23 Assessment/Plan EKG: sinus, PVC, no ischemic changes echo 09/2018 nl LV function, mild MAC, tr MR, RVSP 32 mmHg tele: NSR 68M h/o HTN, DM, HLD, PAD s/p femoral stent, prior smoker, R sided lung ca s/p partial resection p/w shortness of breath: Shortness of breath, PNA, acute diastolic CHF exacerbation: - likely multifactorial - h/o lung ca s/p resection, findings concerning for PNA - abx, nebs per primary, pulm - elevated BNP (7K) with congestion on CXR, likely component of HF - echo nl LV function, remainder unremarkable, no pulm HTN noted - Clinically improved w/ HD--vol mgmt plan per renal, HD cath removed HTN with htn urgency: - holding home diuretic, valsartan sec to BRET (? renal dysffxn will be reversible) - amlodipine stopped for edema - hydralazine stopped due to concern for drug induced lupus (elevated anti- histone ABs) - cont labetolol, clonidine: HRs 50s rarely, mostly higher--suspect will not tolerate higher doses of clonidine (drowsiness likely) - nifedipine incr'd to 90 qam on 10/05 - BPs were very uncontrolled, running highest in AM, possibly sec to loss of nifedipine effect from short half-life (also insomnia and agitation overnight may be contributing)--incr'd nifed to 90 bid, added nitrates (imdur 60 qd) - BP much better, same plan - low threshold to cut back nifedipine dose if bp's remain well controlled BRET on CKD: started on HD -likely component of cardiorenal syndrome -s/p kidney bx HLD: - cont statin PAD: - cont statin - holding plavix for kidney bx - restart when able
[2018-10-07] MEDS ORDERED: PT OWN MED DRAWER 7, Y5N ONE ×3 (09:45→15:33)
[2018-10-07] MEDS: LABETALOL HCL 200 MG TABLET (FP) PO SCH ×2 (10:37→22:04)
[2018-10-07] MEDS: PANTOPRAZOLE 40 MG TABLET (FP) PO SCH (10:37)
[2018-10-07] MEDS: NIFEdipine E.R. 90 MG TABLET (FP) PO SCH ×2 (10:38→22:06)
[2018-10-07] MEDS: methylPREDNISolone NA SUCC 40 MG/1 ML VIAL IVPUSH SCH ×2 (10:39→22:06)
--- NOTE | 2018-10-07 10:55 | PN ---
Progress Note (short form) - Note Progress Note: Pulm/CCM SUBJECTIVE: Patient seen and examined in the ICU. -another dose of HD last night with 3L off -gas exchange improved -BP improved as well OBJECTIVE: Vital Signs Temp 97.6 F 10/07/18 09:00 Pulse 59 L 10/07/18 09:00 Resp 18 10/07/18 09:00 BP 142/51 L 10/07/18 09:00 Pulse Ox 98 10/07/18 09:00 Intake & Output 10/06/18 10/06/18 10/07/18 11:59 23:59 11:59 Intake Total 540 270 100 Output Total 600 500 150 Balance -60 -230 -50 Weight 89.766 kg 82.599 kg Intake: IV 20 RFA 20 Oral 250 100 Oral Supplement 540 Output: Urine 600 500 150 Quinones 600 500 150 Other: Voiding Method Indwelling Catheter Indwelling Catheter Indwelling Catheter Bowel Movement No No Weight Measurement Method [facility] Active Medications Alprazolam (Xanax -) 0.25 mg PO BID PRN PRN Reason: ANXIETY Artificial Tears (Artificial Tears) 2 drop OU Q8H PRN PRN Reason: DRY EYES Atorvastatin Calcium (Lipitor -) 20 mg PO HS [facility] Last Admin: 10/06/18 21:49 Dose: 20 mg Calcium Acetate (Phoslo -) 667 mg PO TIDCM [facility] Last Admin: 10/07/18 08:52 Dose: 667 mg Clonidine (Catapres -) 0.2 mg PO BID [facility] Last Admin: 10/06/18 21:49 Dose: 0.2 mg Clonidine (Catapres -) 0.1 mg PO Q4H PRN PRN Reason: HYPERTENSION Heparin Sodium (Porcine) (Heparin -) 5,000 unit SQ TID [facility] Last Admin: 10/07/18 05:28 Dose: 5,000 unit Sodium Chloride (Normal Saline -) 250 mls @ 3,000 mls/hr IV PRN PRN PRN Reason: Hypotension during Dialysis Stop: 10/07/18 12:18 Insulin Aspart (Novolog Vial Sliding Scale -) 1 vial SQ [facility]; Protocol Last Admin: 10/07/18 06:22 Dose: 9 units Insulin Detemir (Levemir Vial) 10 units SQ [facility] Last Admin: 06/29/19 22:02 Dose: 10 unit Isosorbide Mononitrate (Imdur -) 60 mg PO DAILY [facility] Last Admin: 10/06/18 11:17 Dose: 60 mg Labetalol HCl (Normodyne -) 400 mg PO BID [facility] Last Admin: 10/07/18 10:37 Dose: 400 mg Melatonin (Melatonin) 5 mg PO HS PRN PRN Reason: INSOMNIA Methadone HCl 40 mg/ Methadone (HCl 20 mg) 60 mg PO DAILY@0600 [facility] Last Admin: 10/07/18 05:28 Dose: 60 mg Methylprednisolone Sodium Succinate (Solu-Medrol -) 40 mg IVPUSH BID [facility] Last Admin: 10/07/18 10:39 Dose: 40 mg Nifedipine (Procardia Xl -) 90 mg PO BID [facility] Last Admin: 10/07/18 10:38 Dose: 90 mg Pantoprazole Sodium (Protonix -) 40 mg PO DAILY [facility] Last Admin: 10/07/18 10:37 Dose: 40 mg Sodium Chloride ([place] Nasal [place] -) 2 spray NS Q8H PRN PRN Reason: NASAL CONGESTION Last Admin: 09/23/18 22:20 Dose: 2 spray Zolpidem Tartrate (Ambien -) 5 mg PO HS PRN PRN Reason: INSOMNIA Last Admin: 10/05/18 21:05 Dose: 5 mg Gen: Awake and alert, less tachypneic Heart: RRR Lung: Bibasilar crackles, clear anterior, improved Abd: soft, nontender Ext: trace edema, improved Neuro: grossly intact, OOB to chair ASSESSMENT AND PLAN: Acute Hypoxic Respiratory Failure r/o Acute Pneumonitis/Interstitial Lung Disease r/o Pneumonia Acute on Chronic Diastolic Heart Failure Acute on Chronic Renal Failure requiring HD h/o Lung Ca HTN DM - taper medrol daily - continue empiric antibiotics - inhaled bronchodilators - HD as per renal - antihypertensive being managed by Cards, can likely come down - monitor urine output, creatinine - f/u renal biopsy, path pending - taper HFOT to keep SpO2 >90%, transition to nasal cannula if tolerated - PO as tolerated - DVT prophylaxis - ok for med/surg vs tele per primary team. No ICU needs [place] ACNP
[2018-10-07] MEDS: cloNIDine HCL 0.1 MG TABLET PO SCH ×2 (11:52→22:05)
[2018-10-07] MEDS: ISOSORBIDE MONONITRATE 60 MG TAB.SR.24H (FP) PO SCH (11:52)
--- NOTE | 2018-10-07 13:14 | PN ---
Progress Note (short form) - Note Progress Note: comfortable feels better all f/u noted/ discussed with icu attending Vital Signs Temp 97.6 F 10/07/18 09:00 Pulse 59 L 10/07/18 09:00 Resp 18 10/07/18 09:00 BP 142/51 L 10/07/18 09:00 Pulse Ox 98 10/07/18 09:00 Intake & Output 10/06/18 10/07/18 10/07/18 23:59 11:59 23:59 Intake Total 270 100 Output Total 500 150 Balance -230 -50 Weight 182 lb 1.6 oz Intake: IV 20 RFA 20 Oral 250 100 Output: Urine 500 150 Quinones 500 150 Other: Voiding Method Indwelling Catheter Indwelling Catheter Bowel Movement No No Yes Weight Measurement Method Built in [facility] Active Medications Alprazolam (Xanax -) 0.25 mg PO BID PRN PRN Reason: ANXIETY Artificial Tears (Artificial Tears) 2 drop OU Q8H PRN PRN Reason: DRY EYES Atorvastatin Calcium (Lipitor -) 20 mg PO HS [facility] Last Admin: 10/06/18 21:49 Dose: 20 mg Calcium Acetate (Phoslo -) 667 mg PO TIDCM [facility] Last Admin: 10/07/18 11:52 Dose: 667 mg Clonidine (Catapres -) 0.2 mg PO BID [facility] Last Admin: 10/07/18 11:52 Dose: 0.2 mg Clonidine (Catapres -) 0.1 mg PO Q4H PRN PRN Reason: HYPERTENSION Heparin Sodium (Porcine) (Heparin -) 5,000 unit SQ TID [facility] Last Admin: 10/07/18 05:28 Dose: 5,000 unit Insulin Aspart (Novolog Vial Sliding Scale -) 1 vial SQ [facility]; Protocol Last Admin: 10/07/18 06:22 Dose: 9 units Insulin Detemir (Levemir Vial) 10 units SQ [facility] Last Admin: 10/06/18 22:02 Dose: 10 unit Isosorbide Mononitrate (Imdur -) 60 mg PO DAILY [facility] Last Admin: 10/07/18 11:52 Dose: 60 mg Labetalol HCl (Normodyne -) 400 mg PO BID [facility] Last Admin: 10/07/18 10:37 Dose: 400 mg Melatonin (Melatonin) 5 mg PO HS PRN PRN Reason: INSOMNIA Methadone HCl 40 mg/ Methadone (HCl 20 mg) 60 mg PO DAILY@0600 [facility] Last Admin: 10/07/18 05:28 Dose: 60 mg Methylprednisolone Sodium Succinate (Solu-Medrol -) 40 mg IVPUSH BID [facility] Last Admin: 10/07/18 10:39 Dose: 40 mg Nifedipine (Procardia Xl -) 90 mg PO BID [facility] Last Admin: 10/07/18 10:38 Dose: 90 mg Pantoprazole Sodium (Protonix -) 40 mg PO DAILY [facility] Last Admin: 10/07/18 10:37 Dose: 40 mg Sodium Chloride ([place]al [place] -) 2 spray NS Q8H PRN PRN Reason: NASAL CONGESTION Last Admin: 09/23/18 22:20 Dose: 2 spray Zolpidem Tartrate (Ambien -) 5 mg PO HS PRN PRN Reason: INSOMNIA Last Admin: 10/05/18 21:05 Dose: 5 mg CBC, BMP 10/06/18 17:30 10/06/18 17:30 Physical Exam Awake/ comfortable S1 s2 RRR Lungs -- crackles at bases abd- soft, NT edema decreased Neuro- alert/ awake PLAN CHF/ arf on ckd--on HD leucocytosis-- blood cultures , ua and urine culture-- negative -- on steroids Dialysis per renal Continue present care off abx xanax for anxiety condition stable and improved will follow Problem List - Problems (1) Pneumonia Code(s): J18.9 - PNEUMONIA, UNSPECIFIED ORGANISM (2) Acute and chronic respiratory failure Code(s): J96.20 - ACUTE AND CHR RESP FAILURE, UNSP W HYPOXIA OR HYPERCAPNIA (3) CHF exacerbation Code(s): I50.9 - HEART FAILURE, UNSPECIFIED (4) History of lung cancer Code(s): Z85.118 - PERSONAL HISTORY OF MALIGNANT NEOPLASM OF BRONCHUS AND LUNG (5) Diabetes Code(s): E11.9 - TYPE 2 DIABETES MELLITUS WITHOUT COMPLICATIONS (6) Chronic renal insufficiency, stage III (moderate) Code(s): N18.3 - CHRONIC KIDNEY DISEASE, STAGE 3 (MODERATE)
--- NOTE | 2018-10-07 13:49 | PN ---
Progress Note, Physician History of Present Illness: Pt seen and examined at bedside. He is awake and alert. He feels that his breathing is improved. - Current Medication List Current Medications: Active Medications Alprazolam (Xanax -) 0.25 mg PO BID PRN PRN Reason: ANXIETY Artificial Tears (Artificial Tears) 2 drop OU Q8H PRN PRN Reason: DRY EYES Atorvastatin Calcium (Lipitor -) 20 mg PO HS [facility] Last Admin: 10/06/18 21:49 Dose: 20 mg Calcium Acetate (Phoslo -) 667 mg PO TIDCM [facility] Last Admin: 10/07/18 11:52 Dose: 667 mg Clonidine (Catapres -) 0.2 mg PO BID [facility] Last Admin: 10/07/18 11:52 Dose: 0.2 mg Clonidine (Catapres -) 0.1 mg PO Q4H PRN PRN Reason: HYPERTENSION Heparin Sodium (Porcine) (Heparin -) 5,000 unit SQ TID [facility] Last Admin: 10/07/18 05:28 Dose: 5,000 unit Insulin Aspart (Novolog Vial Sliding Scale -) 1 vial SQ [facility]; Protocol Last Admin: 10/07/18 12:30 Dose: 9 units Insulin Detemir (Levemir Vial) 10 units SQ HS [facility] Last Admin: 10/06/18 22:02 Dose: 10 unit Isosorbide Mononitrate (Imdur -) 60 mg PO DAILY [facility] Last Admin: 10/07/18 11:52 Dose: 60 mg Labetalol HCl (Normodyne -) 400 mg PO BID [facility] Last Admin: 10/07/18 10:37 Dose: 400 mg Melatonin (Melatonin) 5 mg PO HS PRN PRN Reason: INSOMNIA Methadone HCl 40 mg/ Methadone (HCl 20 mg) 60 mg PO DAILY@0600 [facility] Last Admin: 10/07/18 05:28 Dose: 60 mg Methylprednisolone Sodium Succinate (Solu-Medrol -) 40 mg IVPUSH BID [facility] Last Admin: 10/07/18 10:39 Dose: 40 mg Nifedipine (Procardia Xl -) 90 mg PO BID [facility] Last Admin: 10/07/18 10:38 Dose: 90 mg Pantoprazole Sodium (Protonix -) 40 mg PO DAILY [facility] Last Admin: 10/07/18 10:37 Dose: 40 mg Sodium Chloride ([place] Nasal [place] -) 2 spray NS Q8H PRN PRN Reason: NASAL CONGESTION Last Admin: 09/23/18 22:20 Dose: 2 spray Zolpidem Tartrate (Ambien -) 5 mg PO HS PRN PRN Reason: INSOMNIA Last Admin: 10/05/18 21:05 Dose: 5 mg - Objective Vital Signs: Vital Signs Temperature 97.6 F 10/07/18 09:00 Pulse Rate 59 L 10/07/18 09:00 Respiratory Rate 18 10/07/18 09:00 Blood Pressure 142/51 L 10/07/18 09:00 O2 Sat by Pulse Oximetry (%) 98 10/07/18 09:00 Constitutional: Yes: Calm Eyes: Yes: Conjunctiva Clear HENT: Yes: Atraumatic Neck: Yes: Supple Cardiovascular: Yes: S1, S2 Respiratory: Yes: On Nasal O2 Gastrointestinal: Yes: Soft Genitourinary: Yes: WNL Edema: Yes Edema: LLE: Trace, RLE: Trace Neurological: Yes: Oriented Psychiatric: Yes: Oriented Labs: CBC, BMP 10/06/18 17:30 10/06/18 17:30 INR, PTT INR 1.11 (0.83-1.09) H 09/17/18 12:23 Problem List - Problems (1) BRET (acute kidney injury) Code(s): N17.9 - ACUTE KIDNEY FAILURE, UNSPECIFIED (2) CHF exacerbation Code(s): I50.9 - HEART FAILURE, UNSPECIFIED Assessment/Plan Current Medications Generic Name Dose Route Start Last Admin Trade Name Freq PRN Reason Stop Dose Admin Alprazolam 0.25 mg 10/06/18 15:32 Xanax - PO BID PRN ANXIETY Artificial Tears 2 drop 09/20/18 16:13 Artificial Tears OU Q8H PRN DRY EYES Atorvastatin Calcium 20 mg 09/17/18 22:00 10/06/18 21:49 Lipitor - PO 20 mg HS [facility] Administration Calcium Acetate 667 mg 09/25/18 17:30 10/07/18 11:52 Phoslo - PO 667 mg TIDCM [facility] Administration Clonidine 0.2 mg 10/03/18 10:41 10/07/18 11:52 Catapres - PO 0.2 mg BID [facility] Administration Clonidine 0.1 mg 10/06/18 10:23 Catapres - PO Q4H PRN HYPERTENSION Heparin Sodium (Porcine) 5,000 unit 10/01/18 14:45 10/07/18 05:28 Heparin - SQ 5,000 unit TID [facility] Administration Insulin Aspart 1 vial 09/17/18 16:30 10/07/18 12:30 Novolog Vial Sliding Scale - SQ 9 units ACHS [facility] Administration Protocol Insulin Detemir 10 units 09/17/18 22:00 10/06/18 22:02 Levemir Vial SQ 10 unit HS [facility] Administration Isosorbide Mononitrate 60 mg 10/06/18 10:30 10/07/18 11:52 Imdur - PO 60 mg DAILY [facility] Administration Labetalol HCl 400 mg 09/19/18 10:40 10/07/18 10:37 Normodyne - PO 400 mg BID [facility] Administration Melatonin 5 mg 10/04/18 18:08 Melatonin PO HS PRN INSOMNIA Methadone HCl 40 mg/ Methadone 60 mg 09/27/18 06:30 10/07/18 05:28 HCl 20 mg PO 60 mg DAILY@0600 [facility] Administration Methylprednisolone Sodium Succinate 40 mg 10/06/18 22:00 10/07/18 10:39 Solu-Medrol - IVPUSH 40 mg BID [facility] Administration Nifedipine 90 mg 10/06/18 22:00 10/07/18 10:38 Procardia Xl - PO 90 mg BID [facility] Administration Pantoprazole Sodium 40 mg 10/01/18 10:00 10/07/18 10:37 Protonix - PO 40 mg DAILY [facility] Administration Sodium Chloride 2 spray 09/23/18 15:50 09/23/18 22:20 [place] Nasal [place] - NS 2 spray Q8H PRN Administration NASAL CONGESTION Zolpidem Tartrate 5 mg 10/04/18 18:12 10/05/18 21:05 Ambien - PO 5 mg HS PRN Administration INSOMNIA #Acute shortness of breath form diastolic HF + PNA #Peripheral edema #Acute on chronic renal insufficiency #Anemia #Hypertension #BPH #CHF Plan - pt tolerated HD yesterday - check labs in am - follow renal biopsy - avoid nephrotoxins - monitor bp
[2018-10-07] MEDS: ATORVASTATIN CA 20 MG TABLET (FP) PO SCH (22:04)
[2018-10-07] MEDS: INSULIN (LEVEMIR) 100 UNITS/ML UNITS SQ SCH (22:10)
[2018-10-08 06:10] LABS: HEMATOCRIT 23.5 % (35.4-49); HEMOGLOBIN 7.8 GM/dL (11.7-16.9); MCH 28.7 pg (25.7-33.7); MCHC 33.2 g/dl (32.0-35.9); MEAN CELL VOLUME 86.6 fl (80-96); MEAN PLT VOLUME 8.5 fl (7.5-11.1); PLATELET COUNT 245 K/MM3 (134-434); RBC 2.71 M/mm3 (4.00-5.60); RDW 13.9 % (11.9-15.9); WHITE BLOOD COUNT 17.6 K/mm3 (4.0-10.0)
[2018-10-08] MEDS ORDERED: METHADONE HCL 10 MG TABLET ONE (06:36)
[2018-10-08] MEDS ORDERED: METHADONE HCL 40 MG DISPERSABLE TABLET ONE (06:36)
[2018-10-08] MEDS: METHADONE 40 MG, METHADONE 20 MG PO SCH (06:40)
[2018-10-08] MEDS: HEPARIN NA (PORCINE) 5,000 UNITS/ML 1ML VIAL SQ SCH ×4 (06:41→22:48)
[2018-10-08] MEDS: INSULIN SLIDING SCALE (NOVOLOG) 1 VIAL SQ SCH ×5 (06:41→22:50)
[2018-10-08 06:45] LABS: BLOOD UREA NITROGEN 66.9 mg/dL (7-18); CALCIUM 8.1 mg/dL (8.5-10.1); CREATININE 2.8 mg/dL (0.55-1.3); MAGNESIUM 2.1 mg/dL (1.8-2.4)
--- NOTE | 2018-10-08 08:37 | PN ---
Progress Note, Physician Chief Complaint: seen and examined in ICU No CP, dizziness, SOB BP trend stable. No episodes hypotension. TELE: NSR - Current Medication List Current Medications: Active Medications Alprazolam (Xanax -) 0.25 mg PO BID PRN PRN Reason: ANXIETY Artificial Tears (Artificial Tears) 2 drop OU Q8H PRN PRN Reason: DRY EYES Atorvastatin Calcium (Lipitor -) 20 mg PO HS [facility] Last Admin: 10/07/18 22:04 Dose: 20 mg Calcium Acetate (Phoslo -) 667 mg PO TIDCM [facility] Last Admin: 10/07/18 16:52 Dose: 667 mg Clonidine (Catapres -) 0.2 mg PO BID [facility] Last Admin: 10/07/18 22:05 Dose: 0.2 mg Clonidine (Catapres -) 0.1 mg PO Q4H PRN PRN Reason: HYPERTENSION Heparin Sodium (Porcine) (Heparin -) 5,000 unit SQ TID [facility] Last Admin: 10/08/18 06:41 Dose: 5,000 unit Insulin Aspart (Novolog Vial Sliding Scale -) 1 vial SQ [facility]; Protocol Last Admin: 10/08/18 06:41 Dose: 7 units Insulin Detemir (Levemir Vial) 10 units SQ [facility] Last Admin: 10/07/18 22:10 Dose: 10 unit Isosorbide Mononitrate (Imdur -) 60 mg PO DAILY [facility] Last Admin: 10/07/18 11:52 Dose: 60 mg Labetalol HCl (Normodyne -) 400 mg PO BID [facility] Last Admin: 10/07/18 22:04 Dose: 400 mg Melatonin (Melatonin) 5 mg PO HS PRN PRN Reason: INSOMNIA Methadone HCl 40 mg/ Methadone (HCl 20 mg) 60 mg PO DAILY@0600 [facility] Last Admin: 10/08/18 06:40 Dose: 60 mg Methylprednisolone Sodium Succinate (Solu-Medrol -) 40 mg IVPUSH BID [facility] Last Admin: 10/07/18 22:06 Dose: 40 mg Nifedipine (Procardia Xl -) 90 mg PO BID [facility] Last Admin: 10/07/18 22:06 Dose: 90 mg Pantoprazole Sodium (Protonix -) 40 mg PO DAILY [facility] Last Admin: 10/07/18 10:37 Dose: 40 mg Sodium Chloride ([place] Nasal [place] -) 2 spray NS Q8H PRN PRN Reason: NASAL CONGESTION Last Admin: 09/23/18 22:20 Dose: 2 spray - Objective Vital Signs: Vital Signs Temperature 98.7 F 10/08/18 06:00 Pulse Rate 59 L 10/08/18 06:00 Respiratory Rate 24 H 10/08/18 06:00 Blood Pressure 143/55 L 10/08/18 06:00 O2 Sat by Pulse Oximetry (%) 95 10/07/18 21:00 Constitutional: Yes: No Distress Cardiovascular: Yes: Regular Rate and Rhythm Respiratory: Yes: CTA Bilaterally (no rales) Gastrointestinal: Yes: Soft Edema: No Neurological: Yes: Alert, Oriented Labs: CBC, BMP 10/08/18 05:30 10/08/18 05:30 INR, PTT INR 1.11 (0.83-1.09) H 09/17/18 12:23 Laboratory Tests 10/08/18 10/08/18 05:30 05:30 WBC 17.6 H Hgb 7.8 L Plt Count 245 Sodium 134 L Potassium 5.0 Creatinine 2.8 H Magnesium 2.1 - ....Imaging EKG: Image Reviewed Assessment/Plan Assessment/Plan EKG: sinus, PVC, no ischemic changes echo 09/2018 nl LV function, mild MAC, tr MR, RVSP 32 mmHg tele: NSR 68M h/o HTN, DM, HLD, PAD s/p femoral stent, prior smoker, R sided lung ca s/p partial resection p/w shortness of breath: Shortness of breath, PNA, acute diastolic CHF exacerbation: - likely multifactorial - h/o lung ca s/p resection, findings concerning for PNA - abx, nebs per primary, pulm - elevated BNP (7K) with congestion on CXR, likely component of HF - echo nl LV function, remainder unremarkable, no pulm HTN noted - Clinically improved w/ HD--vol mgmt plan per renal, HD cath removed HTN with htn urgency: - holding home diuretic, valsartan sec to BRET (? renal dysffxn will be reversible) - amlodipine stopped for edema - hydralazine stopped due to concern for drug induced lupus (elevated anti- histone ABs) - cont labetolol, clonidine, Imdur and BID Nifedipine. No episodes hypotension - BP much better, no reason to cut back nifedipine dose at this time. BRET on CKD: started on HD -likely component of cardiorenal syndrome -s/p kidney bx HLD: - cont statin PAD: - cont statin - held plavix for kidney bx - restart when able
[2018-10-08] MEDS: CALCIUM ACETATE 667 MG CAPSULE (FP) PO SCH ×3 (09:00→18:40)
--- NOTE | 2018-10-08 09:17 | PN ---
Progress Note (short form) - Note Progress Note: Pt seen/ examined better sitting in chair says slept well Vital Signs Temp 98.7 F 10/08/18 06:00 Pulse 59 L 10/08/18 06:00 Resp 24 H 10/08/18 06:00 BP 143/55 L 10/08/18 06:00 Pulse Ox 95 10/07/18 21:00 Intake & Output 10/07/18 10/07/18 10/08/18 11:59 23:59 11:59 Intake Total 100 100 50 Output Total 150 500 200 Balance -50 -400 -150 Weight 182 lb 1.6 oz Intake: Oral 100 100 50 Output: Urine 150 500 200 Quinones 150 500 200 Other: Voiding Method Indwelling Catheter Indwelling Catheter Bowel Movement No Yes Weight Measurement Method Built in [facility] Active Medications Alprazolam (Xanax -) 0.25 mg PO BID PRN PRN Reason: ANXIETY Artificial Tears (Artificial Tears) 2 drop OU Q8H PRN PRN Reason: DRY EYES Atorvastatin Calcium (Lipitor -) 20 mg PO HS [facility] Last Admin: 10/07/18 22:04 Dose: 20 mg Calcium Acetate (Phoslo -) 667 mg PO TIDCM [facility] Last Admin: 10/07/18 16:52 Dose: 667 mg Clonidine (Catapres -) 0.2 mg PO BID [facility] Last Admin: 10/07/18 22:05 Dose: 0.2 mg Clonidine (Catapres -) 0.1 mg PO Q4H PRN PRN Reason: HYPERTENSION Heparin Sodium (Porcine) (Heparin -) 5,000 unit SQ TID [facility] Last Admin: 10/08/18 06:41 Dose: 5,000 unit Insulin Aspart (Novolog Vial Sliding Scale -) 1 vial SQ [facility]; Protocol Last Admin: 10/08/18 06:41 Dose: 7 units Insulin Detemir (Levemir Vial) 10 units SQ [facility] Last Admin: 10/07/18 22:10 Dose: 10 unit Isosorbide Mononitrate (Imdur -) 60 mg PO DAILY [facility] Last Admin: 10/07/18 11:52 Dose: 60 mg Labetalol HCl (Normodyne -) 400 mg PO BID [facility] Last Admin: 10/07/18 22:04 Dose: 400 mg Melatonin (Melatonin) 5 mg PO HS PRN PRN Reason: INSOMNIA Methadone HCl 40 mg/ Methadone (HCl 20 mg) 60 mg PO DAILY@0600 [facility] Last Admin: 10/08/18 06:40 Dose: 60 mg Methylprednisolone Sodium Succinate (Solu-Medrol -) 40 mg IVPUSH BID [facility] Last Admin: 10/07/18 22:06 Dose: 40 mg Nifedipine (Procardia Xl -) 90 mg PO BID [facility] Last Admin: 10/07/18 22:06 Dose: 90 mg Pantoprazole Sodium (Protonix -) 40 mg PO DAILY [facility] Last Admin: 10/07/18 10:37 Dose: 40 mg Sodium Chloride ([place] Nasal [place] -) 2 spray NS Q8H PRN PRN Reason: NASAL CONGESTION Last Admin: 09/23/18 22:20 Dose: 2 spray CBC, BMP 10/08/18 05:30 10/08/18 05:30 Microbiology 10/05/18 13:45 Blood Culture - Preliminary Blood - Peripheral Venous NO GROWTH OBTAINED AFTER 48 HOURS, INCUBATION TO CONTINUE FOR 3 DAYS. 10/05/18 10:38 Blood Culture - Preliminary Blood - Peripheral Venous NO GROWTH OBTAINED AFTER 48 HOURS, INCUBATION TO CONTINUE FOR 3 DAYS. Physical Exam Awake/ comfortable S1 s2 RRR Lungs -- decreased at bases abd- soft, NT edema decreased Neuro- alert/ awake PLAN better Dialysis per renal Continue present care off abx xanax for anxiety condition stable and improved taper steroids stable for transfer to floor will follow Problem List - Problems (1) Pneumonia Code(s): J18.9 - PNEUMONIA, UNSPECIFIED ORGANISM (2) Acute and chronic respiratory failure Code(s): J96.20 - ACUTE AND CHR RESP FAILURE, UNSP W HYPOXIA OR HYPERCAPNIA (3) CHF exacerbation Code(s): I50.9 - HEART FAILURE, UNSPECIFIED (4) History of lung cancer Code(s): Z85.118 - PERSONAL HISTORY OF MALIGNANT NEOPLASM OF BRONCHUS AND LUNG (5) Diabetes Code(s): E11.9 - TYPE 2 DIABETES MELLITUS WITHOUT COMPLICATIONS (6) Chronic renal insufficiency, stage III (moderate) Code(s): N18.3 - CHRONIC KIDNEY DISEASE, STAGE 3 (MODERATE)
[2018-10-08] MEDS ORDERED: PT OWN MED DRAWER 7, Y5N ONE ×2 (10:06→14:43)
[2018-10-08] MEDS: LABETALOL HCL 200 MG TABLET (FP) PO SCH ×3 (11:00→22:49)
[2018-10-08] MEDS: cloNIDine HCL 0.1 MG TABLET PO SCH ×3 (11:09→22:48)
[2018-10-08] MEDS: PANTOPRAZOLE 40 MG TABLET (FP) PO SCH (11:09)
[2018-10-08] MEDS: methylPREDNISolone NA SUCC 40 MG/1 ML VIAL IVPUSH SCH ×3 (11:09→22:50)
[2018-10-08] MEDS: ISOSORBIDE MONONITRATE 60 MG TAB.SR.24H (FP) PO SCH (11:10)
[2018-10-08] MEDS: NIFEdipine E.R. 90 MG TABLET (FP) PO SCH ×3 (11:12→22:50)
--- NOTE | 2018-10-08 12:42 | PN ---
Progress Note (short form) - Note Progress Note: Renal follow up for BRET Pt seen and examined in the ICU awake and alert on NC O2 last dialysis was Monday making urine via alcantara no sob, cp, abd pain, fever or chills Vital Signs Temperature 98.6 F 10/08/18 08:00 Pulse Rate 57 L 10/08/18 08:00 Respiratory Rate 16 10/08/18 08:00 Blood Pressure 129/55 L 10/08/18 08:00 O2 Sat by Pulse Oximetry (%) 95 10/07/18 21:00 Intake & Output 10/05/18 10/06/18 10/07/18 10/08/18 23:59 23:59 23:59 23:59 Intake Total 500 810 200 50 Output Total 1000 1100 650 200 Balance -500 -290 -450 -150 Weight 89.766 kg 89.766 kg 82.599 kg NAD RRR, no M/R BS improved no edema CBC, BMP 10/08/18 05:30 10/08/18 05:30 Current Medications Alprazolam (Xanax -) 0.25 mg PO BID PRN PRN Reason: ANXIETY Artificial Tears (Artificial Tears) 2 drop OU Q8H PRN PRN Reason: DRY EYES Atorvastatin Calcium (Lipitor -) 20 mg PO HS [facility] Last Admin: 10/07/18 22:04 Dose: 20 mg Calcium Acetate (Phoslo -) 667 mg PO TIDCM [facility]PL[facility] Last Admin: 10/08/18 09:00 Dose: 667 mg Clonidine (Catapres -) 0.2 mg PO BID [facility] Last Admin: 10/08/18 11:09 Dose: 0.2 mg Clonidine (Catapres -) 0.1 mg PO Q4H PRN PRN Reason: HYPERTENSION Epoetin Guru (Epogen -) 20,000 unit IVPUSH ONCE ONE Stop: 10/08/18 10:19 Heparin Sodium (Porcine) (Heparin -) 5,000 unit SQ TID [facility] Last Admin: 10/08/18 06:41 Dose: 5,000 unit Sodium Chloride (Normal Saline -) 250 mls @ 3,000 mls/hr IV PRN PRN PRN Reason: Hypotension during Dialysis Stop: 10/09/18 10:18 Insulin Aspart (Novolog Vial Sliding Scale -) 1 vial SQ [facility] REPLACED BY [facility]; Protocol Last Admin: 10/08/18 06:41 Dose: 7 units Insulin Detemir (Levemir Vial) 10 units SQ HS [facility] Last Admin: 10/07/18 22:10 Dose: 10 unit Isosorbide Mononitrate (Imdur -) 60 mg PO DAILY [facility] Last Admin: 10/08/18 11:10 Dose: 60 mg Labetalol HCl (Normodyne -) 400 mg PO BID [facility] Last Admin: 10/08/18 11:00 Dose: 400 mg Melatonin (Melatonin) 5 mg PO HS PRN PRN Reason: INSOMNIA Methadone HCl 40 mg/ Methadone (HCl 20 mg) 60 mg PO DAILY@0600 [facility] Last Admin: 10/08/18 06:40 Dose: 60 mg Methylprednisolone Sodium Succinate (Solu-Medrol -) 40 mg IVPUSH BID [facility]PL[facility] Last Admin: 10/08/18 11:09 Dose: 40 mg Nifedipine (Procardia Xl -) 90 mg PO BID [facility] Last Admin: 10/08/18 11:12 Dose: 90 mg Pantoprazole Sodium (Protonix -) 40 mg PO DAILY [facility] Last Admin: 10/08/18 11:09 Dose: 40 mg Sodium Chloride ([place] Nasal [place] -) 2 spray NS Q8H PRN PRN Reason: NASAL CONGESTION Last Admin: 09/23/18 22:20 Dose: 2 spray 68 year old gentleman with hx of of hypertension, DM on insulin, PVD s/ p Le stents, BPH, Hx of Lung cancer s/p resection who presented with SOB and noted to have BUN/Cr of 79/3.2. 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 can monitor for recovery as outpatient as well with BUN/Cr trends and 24 hour Urine CrCL Cr was 3.2 in August, 2.1 in February UPCR is 3.2, CHICHI negative, ANCA is negative, anti-histone ab is moderate positive would avoid any further hydralazine use Renal imaging showed no obstruction will need further imaging of splenic lesion Dariusz Iniguez DO
[2018-10-08] MEDS ORDERED: SODIUM CHLORIDE 250 ML IV PRN ×2 (13:07→21:58)
[2018-10-08] MEDS ORDERED: EPOETIN ALFA 20,000 UNIT/1 ML VIAL IVPUSH ONE (13:15)
[2018-10-08 14:12] LABS: DRVVT - 40.1 sec (0.0-47.0)
--- NOTE | 2018-10-08 14:29 | PN ---
Teaching Attending Note Name of Resident: Monty Lauren ATTENDING PHYSICIAN STATEMENT I saw and evaluated the patient. I reviewed the resident's note and discussed the case with the resident. I agree with the resident's findings and plan as documented. SUBJECTIVE: Patient seen and examined in the ICU. Currently off HFOT. Breathing feels overall better. No CP. Less SOB. Intake & Output 10/05/18 10/06/18 10/07/18 10/08/18 23:59 23:59 23:59 23:59 Intake Total 500 810 200 50 Output Total 1000 1100 650 200 Balance -500 -290 -450 -150 Weight 197 lb 14.4 oz 197 lb 14.4 oz 182 lb 1.6 oz Last Vital Signs Temp Pulse Resp BP Pulse Ox 350 F H 53 L 18 163/65 95 10/08/18 13:00 10/08/18 13:00 10/08/18 13:00 10/08/18 13:00 10/07/18 21:00 Active Medications Alprazolam (Xanax -) 0.25 mg PO BID PRN PRN Reason: ANXIETY Artificial Tears (Artificial Tears) 2 drop OU Q8H PRN PRN Reason: DRY EYES Atorvastatin Calcium (Lipitor -) 20 mg PO HS [facility] Last Admin: 10/07/18 22:04 Dose: 20 mg Calcium Acetate (Phoslo -) 667 mg PO TIDCM [facility] Last Admin: 10/08/18 09:00 Dose: 667 mg Clonidine (Catapres -) 0.2 mg PO BID [facility] Last Admin: 10/08/18 11:09 Dose: 0.2 mg Clonidine (Catapres -) 0.1 mg PO Q4H PRN PRN Reason: HYPERTENSION Heparin Sodium (Porcine) (Heparin -) 5,000 unit SQ TID [facility] Last Admin: 10/08/18 06:41 Dose: 5,000 unit Sodium Chloride (Normal Saline -) 250 mls @ 3,000 mls/hr IV PRN PRN PRN Reason: Hypotension during Dialysis Stop: 10/09/18 13:06 Insulin Aspart (Novolog Vial Sliding Scale -) 1 vial SQ [facility]; Protocol Last Admin: 10/08/18 13:14 Dose: 7 units Insulin Detemir (Levemir Vial) 10 units SQ [facility] Last Admin: 10/07/18 22:10 Dose: 10 unit Isosorbide Mononitrate (Imdur -) 60 mg PO DAILY [facility] Last Admin: 10/08/18 11:10 Dose: 60 mg Labetalol HCl (Normodyne -) 400 mg PO BID [facility] Last Admin: 10/08/18 11:00 Dose: 400 mg Melatonin (Melatonin) 5 mg PO HS PRN PRN Reason: INSOMNIA Methadone HCl 40 mg/ Methadone (HCl 20 mg) 60 mg PO DAILY@0600 [facility] Last Admin: 10/08/18 06:40 Dose: 60 mg Methylprednisolone Sodium Succinate (Solu-Medrol -) 40 mg IVPUSH BID [facility] Last Admin: 10/08/18 11:09 Dose: 40 mg Nifedipine (Procardia Xl -) 90 mg PO BID [facility] Last Admin: 10/08/18 11:12 Dose: 90 mg Pantoprazole Sodium (Protonix -) 40 mg PO DAILY [facility] Last Admin: 10/08/18 11:09 Dose: 40 mg Sodium Chloride ([place] Nasal [place] -) 2 spray NS Q8H PRN PRN Reason: NASAL CONGESTION Last Admin: 09/23/18 22:20 Dose: 2 spray Gen: Awake and alert, less tachypneic Heart: RRR Lung: Bibasilar rhonchi, no wheeze Abd: soft, nontender Ext: no edema Laboratory Results - last 24 hr 10/05/18 10/07/18 10/07/18 13:45 16:35 21:33 WBC RBC Hgb Hct MCV MCH MCHC RDW Plt Count MPV LA PTT Baseline 29.5 dRVVT Confirm Interp 40.1 Lupus Anticoag Comment Comment: Sodium Potassium Chloride Carbon Dioxide Anion Gap BUN Creatinine Est GFR (CKD-EPI)AfAm Est GFR (CKD-EPI)NonAf POC Glucometer 218 360 Random Glucose Calcium Magnesium Double Strand DNA Ab <1 Complement C3 114 Complement C4 34 10/08/18 10/08/18 10/08/18 05:30 05:30 06:24 WBC 17.6 H RBC 2.71 L Hgb 7.8 L Hct 23.5 L MCV 86.6 MCH 28.7 MCHC 33.2 RDW 13.9 Plt Count 245 MPV 8.5 LA PTT Baseline dRVVT Confirm Interp Lupus Anticoag Comment Sodium 134 L Potassium 5.0 Chloride 99 Carbon Dioxide 29 Anion Gap 7 L BUN 66.9 H Creatinine 2.8 H Est GFR (CKD-EPI)AfAm 25.34 Est GFR (CKD-EPI)NonAf 21.86 POC Glucometer 269 Random Glucose 254 H Calcium 8.1 L Magnesium 2.1 Double Strand DNA Ab Complement C3 Complement C4 10/08/18 12:54 WBC RBC Hgb Hct MCV MCH MCHC RDW Plt Count MPV LA PTT Baseline dRVVT Confirm Interp Lupus Anticoag Comment Sodium Potassium Chloride Carbon Dioxide Anion Gap BUN Creatinine Est GFR (CKD-EPI)AfAm Est GFR (CKD-EPI)NonAf POC Glucometer 252 Random Glucose Calcium Magnesium Double Strand DNA Ab Complement C3 Complement C4 ASSESSMENT AND PLAN: Acute Hypoxic Respiratory Failure r/o Acute Pneumonitis/Interstitial Lung Disease r/o Pneumonia Acute on Chronic Diastolic Heart Failure Acute on Chronic Renal Failure requiring HD h/o Lung Ca HTN DM - Medrol - inhaled bronchodilators - HD Per Renal - D/C alcantara - Vascular for access - f/u official renal biopsy - NC O2 as tolerated - PO as tolerated - DVT prophylaxis - 4W / 4S monitoring for continuous oximetry Dr Deshpande
--- NOTE | 2018-10-08 15:51 | PN ---
Physical Exam: SUBJECTIVE: Patient seen and examined at the bedside. Patient was off high flow oxygen therapy over the weekend. Patient stated that he felt better and denied any shortness of breath. Patient did state that he occasionally gets short of breath when he stands up and walks around and is nervous to move around because of this. While patient was receiving dialysis he had an episode of desaturation to the 70s and was placed on a non-rebreather which he tolerated well. OBJECTIVE: Vital Signs Period Temp Pulse Resp BP Sys/Bansal Pulse Ox Last 24 Hr 98.1 F-350 F 53-64 15-24 123-170/52-65 95-95 GENERAL: The patient is awake, alert, and fully oriented, in no acute distress. HEAD: Normal with no signs of trauma. EYES: PERRL, extraocular movements intact, sclera anicteric, conjunctiva clear. No ptosis. NECK: Trachea midline, full range of motion, supple. LUNGS: Breath sounds equal, clear to auscultation bilaterally, no wheezes, no crackles, no accessory muscle use. HEART: Regular rate and rhythm, S1, S2 without murmur, rub or gallop. ABDOMEN: Soft, nontender, nondistended, normoactive bowel sounds, no guarding, no rebound, no hepatosplenomegaly, no masses. EXTREMITIES: 1+ pedal edema bilaterally. 2+ pulses, warm, well-perfused, NEUROLOGICAL: Cranial nerves II through XII grossly intact. Normal speech, gait not observed. PSYCH: Normal mood, normal affect. SKIN: Warm, dry, normal turgor, no rashes or lesions noted Laboratory Results - last 24 hr 10/05/18 10/07/18 10/07/18 13:45 16:35 21:33 WBC RBC Hgb Hct MCV MCH MCHC RDW Plt Count MPV LA PTT Baseline 29.5 dRVVT Confirm Interp 40.1 Lupus Anticoag Comment Comment: Sodium Potassium Chloride Carbon Dioxide Anion Gap BUN Creatinine Est GFR (CKD-EPI)AfAm Est GFR (CKD-EPI)NonAf POC Glucometer 218 360 Random Glucose Calcium Magnesium Double Strand DNA Ab <1 Anti-ss DNA IgG Ab <20 Complement C3 114 Complement C4 34 10/08/18 10/08/18 10/08/18 05:30 05:30 06:24 WBC 17.6 H RBC 2.71 L Hgb 7.8 L Hct 23.5 L MCV 86.6 MCH 28.7 MCHC 33.2 RDW 13.9 Plt Count 245 MPV 8.5 LA PTT Baseline dRVVT Confirm Interp Lupus Anticoag Comment Sodium 134 L Potassium 5.0 Chloride 99 Carbon Dioxide 29 Anion Gap 7 L BUN 66.9 H Creatinine 2.8 H Est GFR (CKD-EPI)AfAm 25.34 Est GFR (CKD-EPI)NonAf 21.86 POC Glucometer 269 Random Glucose 254 H Calcium 8.1 L Magnesium 2.1 Double Strand DNA Ab Anti-ss DNA IgG Ab Complement C3 Complement C4 10/08/18 12:54 WBC RBC Hgb Hct MCV MCH MCHC RDW Plt Count MPV LA PTT Baseline dRVVT Confirm Interp Lupus Anticoag Comment Sodium Potassium Chloride Carbon Dioxide Anion Gap BUN Creatinine Est GFR (CKD-EPI)AfAm Est GFR (CKD-EPI)NonAf POC Glucometer 252 Random Glucose Calcium Magnesium Double Strand DNA Ab Anti-ss DNA IgG Ab Complement C3 Complement C4 Active Medications Generic Name Dose Route Start Last Admin Trade Name Freq PRN Reason Stop Dose Admin Alprazolam 0.25 mg 10/06/18 15:32 Xanax - PO BID PRN ANXIETY Artificial Tears 2 drop 09/20/18 16:13 Artificial Tears OU Q8H PRN DRY EYES Atorvastatin Calcium 20 mg 09/17/18 22:00 10/07/18 22:04 Lipitor - PO 20 mg HS [facility] Administration Calcium Acetate 667 mg 09/25/18 17:30 10/08/18 09:00 Phoslo - PO 667 mg TIDCM [facility] Administration Clonidine 0.2 mg 10/03/18 10:41 10/08/18 11:09 Catapres - PO 0.2 mg BID [facility] Administration Clonidine 0.1 mg 10/06/18 10:23 Catapres - PO Q4H PRN HYPERTENSION Heparin Sodium (Porcine) 5,000 unit 10/01/18 14:45 10/08/18 06:41 Heparin - SQ 5,000 unit TID [facility] Administration Sodium Chloride 250 mls @ 3,000 mls/hr 10/08/18 13:07 Normal Saline - IV 10/09/18 13:06 PRN PRN Hypotension during Dialysis Insulin Aspart 1 vial 09/17/18 16:30 10/08/18 13:14 Novolog Vial Sliding Scale - SQ 7 units ACHS [facility] Administration Protocol Insulin Detemir 10 units 09/17/18 22:00 10/07/18 22:10 Levemir Vial SQ 10 unit HS [facility] Administration Isosorbide Mononitrate 60 mg 10/06/18 10:30 10/08/18 11:10 Imdur - PO 60 mg DAILY [facility] Administration Labetalol HCl 400 mg 09/19/18 10:40 10/08/18 11:00 Normodyne - PO 400 mg BID [facility] Administration Melatonin 5 mg 10/04/18 18:08 Melatonin PO HS PRN INSOMNIA Methadone HCl 40 mg/ Methadone 60 mg 09/27/18 06:30 10/08/18 06:40 HCl 20 mg PO 60 mg DAILY@0600 [facility] Administration Methylprednisolone Sodium Succinate 40 mg 10/06/18 22:00 10/08/18 11:09 Solu-Medrol - IVPUSH 40 mg BID [facility] Administration Nifedipine 90 mg 10/06/18 22:00 10/08/18 11:12 Procardia Xl - PO 90 mg BID [facility] Administration Pantoprazole Sodium 40 mg 10/01/18 10:00 10/08/18 11:09 Protonix - PO 40 mg DAILY [facility] Administration Sodium Chloride 2 spray 09/23/18 15:50 09/23/18 22:20 [place] Nasal [place] - NS 2 spray Q8H PRN Administration NASAL CONGESTION ASSESSMENT/PLAN: Sheng Oliver is a 68 year old male with a PMHx of HTN, IDDM, HLD, femoral stents, past nicotine use, NPH, UTI, right sided lung cancer s/p resection who was admitted to the ICU after having an episode of hypoxic respiratory failure which required the use of high flow oxygen. NEURO - stable CARDIO - continue labatalol 400mg bid, nifedipine 90 bid, clonidine bid and prn for BP - avoid hydralazine for risk of drug induced lupus - Imdur 60 for chest pain - continue lipitor 20 RESPIRATORY - off high flow oxygen - currently requires non-rebreather - episode of desaturation during HD resolved - continue methylprednisolone 40mg bid RENAL - HD today - BRET improving, today CRE 2.8 - Preliminary renal biopsy shows extensive diabetic nephropathy and small non- acute FSGS - Dr. Iniguez nephrology recommending trial off HD to see improvement in renal function - d/c alcantara GI - stable ENDOCRINE - Levemir 10mg qhs - ISS - BGM ACHS Hematology - WBC improving - H/H stable FEN - fluids as per nephro - monitor lytes - diabetic diet Prophylaxis - heparin 5000 tid - protonix daily DISPO - stable for transfer to floors Problem List - Problems (1) BRET (acute kidney injury) Code(s): N17.9 - ACUTE KIDNEY FAILURE, UNSPECIFIED (2) Acute and chronic respiratory failure Code(s): J96.20 - ACUTE AND CHR RESP FAILURE, UNSP W HYPOXIA OR HYPERCAPNIA (3) CHF exacerbation Code(s): I50.9 - HEART FAILURE, UNSPECIFIED (4) Diabetes Code(s): E11.9 - TYPE 2 DIABETES MELLITUS WITHOUT COMPLICATIONS Visit type - Emergency Visit Emergency Visit: No - New Patient This patient is new to me today: Yes Date on this admission: 10/08/18 - Critical Care Critical Care patient: Yes Total Critical Care Time (in minutes): 35 Critical Care Statement: The care of this patient involved high complexity decision making to prevent further life threatening deterioration of the patient 's condition and/or to evaluate & treat vital organ system(s) failure or risk of failure.
[2018-10-08] MEDS: ATORVASTATIN CA 20 MG TABLET (FP) PO SCH ×2 (21:36→22:49)
[2018-10-08] MEDS: INSULIN (LEVEMIR) 100 UNITS/ML UNITS SQ SCH ×2 (21:37→22:48)
[2018-10-08] MEDS ORDERED: cloNIDine HCL 0.1 MG TABLET PO PRN (21:58)
[2018-10-08] MEDS ORDERED: SODIUM CHLORIDE NASAL SPRAY 44 ML BOTTLE NS PRN (21:58)
[2018-10-08] MEDS ORDERED: ALPRAZolam 0.25 MG TABLET PO PRN (21:58)
[2018-10-08] MEDS ORDERED: ARTIFICIAL TEARS (POLYVINYL ALCOHOL) OPTH DROPS OU PRN (21:58)
[2018-10-08] MEDS ORDERED: MELATONIN 5 MG TABLETS PO PRN (21:58)
[2018-10-09] MEDS ORDERED: METHADONE HCL 40 MG DISPERSABLE TABLET ONE (05:50)
[2018-10-09] MEDS ORDERED: METHADONE HCL 10 MG TABLET ONE (05:50)
[2018-10-09] MEDS: METHADONE 40 MG, METHADONE 20 MG PO SCH (05:54)
[2018-10-09] MEDS: HEPARIN NA (PORCINE) 5,000 UNITS/ML 1ML VIAL SQ SCH ×3 (05:55→21:46)
[2018-10-09] MEDS: INSULIN SLIDING SCALE (NOVOLOG) 1 VIAL SQ SCH ×4 (06:05→21:49)
[2018-10-09 08:34] LABS: HEMATOCRIT 24.7 % (35.4-49); MCH 28.4 pg (25.7-33.7); MCHC 32.3 g/dl (32.0-35.9); MEAN PLT VOLUME 8.4 fl (7.5-11.1); PLATELET COUNT 228 K/MM3 (134-434); RBC 2.81 M/mm3 (4.00-5.60); RDW 14.4 % (11.9-15.9); WHITE BLOOD COUNT 20.7 K/mm3 (4.0-10.0)
[2018-10-09 08:51] LABS: BLOOD UREA NITROGEN 43.3 mg/dL (7-18); CALCIUM 7.7 mg/dL (8.5-10.1); CREATININE 2.2 mg/dL (0.55-1.3); POTASSIUM 4.3 mmol/L (3.5-5.1)
[2018-10-09] MEDS: ISOSORBIDE MONONITRATE 60 MG TAB.SR.24H (FP) PO SCH (09:16)
[2018-10-09] MEDS: PANTOPRAZOLE 40 MG TABLET (FP) PO SCH (09:17)
[2018-10-09] MEDS: cloNIDine HCL 0.1 MG TABLET PO SCH ×2 (09:17→21:46)
[2018-10-09] MEDS: CALCIUM ACETATE 667 MG CAPSULE (FP) PO SCH ×3 (09:18→18:55)
[2018-10-09] MEDS: NIFEdipine E.R. 90 MG TABLET (FP) PO SCH ×2 (09:22→21:48)
[2018-10-09] MEDS: LABETALOL HCL 200 MG TABLET (FP) PO SCH ×2 (09:22→21:48)
[2018-10-09] MEDS: methylPREDNISolone NA SUCC 40 MG/1 ML VIAL IVPUSH SCH ×2 (09:27→21:52)
--- NOTE | 2018-10-09 10:38 | PN ---
Progress Note (short form) - Note Progress Note: PULMONARY Saturating high 80s on 5L nasal cannula. Denies shortness of breath, cough or wheezing. Vital Signs Period Temp Pulse Resp BP Sys/Bansal Pulse Ox Last 24 Hr 97.8 F-350 F 53-68 15-22 112-177/51-71 95-95 Gen: mildly tachypneic with speaking Heart: RRR Lung: decreased breath sounds at the bases Abd: soft, nontender Ext: no edema CBC, BMP 10/09/18 07:35 10/09/18 07:35 Active Medications Alprazolam (Xanax -) 0.25 mg PO BID PRN PRN Reason: ANXIETY Artificial Tears (Artificial Tears) 2 drop OU Q8H PRN PRN Reason: DRY EYES Atorvastatin Calcium (Lipitor -) 20 mg PO HS [facility] Last Admin: 10/08/18 22:49 Dose: 20 mg Calcium Acetate (Phoslo -) 667 mg PO TIDCM [facility] Last Admin: 10/09/18 09:18 Dose: 667 mg Clonidine (Catapres -) 0.1 mg PO Q4H PRN PRN Reason: HYPERTENSION Clonidine (Catapres -) 0.2 mg PO BID [facility] Last Admin: 10/09/18 09:17 Dose: 0.2 mg Heparin Sodium (Porcine) (Heparin -) 5,000 unit SQ TID [facility] Last Admin: 10/09/18 05:55 Dose: 5,000 unit Insulin Aspart (Novolog Vial Sliding Scale -) 1 vial SQ [facility]; Protocol Last Admin: 10/09/18 06:05 Dose: Not Given Insulin Detemir (Levemir Vial) 10 units SQ [facility] Last Admin: 10/08/18 22:48 Dose: 10 units Isosorbide Mononitrate (Imdur -) 60 mg PO DAILY [facility] Last Admin: 10/09/18 09:16 Dose: 60 mg Labetalol HCl (Normodyne -) 400 mg PO BID [facility] Last Admin: 10/09/18 09:22 Dose: 400 mg Melatonin (Melatonin) 5 mg PO HS PRN PRN Reason: INSOMNIA Methadone HCl 40 mg/ Methadone (HCl 20 mg) 60 mg PO DAILY@0600 [facility] Last Admin: 10/09/18 05:54 Dose: 60 mg Methylprednisolone Sodium Succinate (Solu-Medrol -) 40 mg IVPUSH BID [facility] Last Admin: 10/09/18 09:27 Dose: 40 mg Nifedipine (Procardia Xl -) 90 mg PO BID [facility] Last Admin: 10/09/18 09:22 Dose: 90 mg Pantoprazole Sodium (Protonix -) 40 mg PO DAILY [facility] Last Admin: 10/09/18 09:17 Dose: 40 mg Sodium Chloride ([place] Nasal [place] -) 2 spray NS Q8H PRN PRN Reason: NASAL CONGESTION A/P Acute Hypoxic Respiratory Failure r/o Acute Pneumonitis/Interstitial Lung Disease r/o Pneumonia Acute on Chronic Diastolic Heart Failure Acute on Chronic Renal Failure requiring HD h/o Lung Ca HTN DM - medrol taper - inhaled bronchodilators - HD per renal - f/u official renal biopsy - O2 to keep SpO2 >90% - PO as tolerated - DVT prophylaxis
--- NOTE | 2018-10-09 11:27 | PN ---
Progress Note (short form) - Note Progress Note: s: sob improving, no chest pain, palps, dizziness Current Medications Alprazolam (Xanax -) 0.25 mg PO BID PRN PRN Reason: ANXIETY Artificial Tears (Artificial Tears) 2 drop OU Q8H PRN PRN Reason: DRY EYES Atorvastatin Calcium (Lipitor -) 20 mg PO HS [facility] Last Admin: 10/08/18 22:49 Dose: 20 mg Calcium Acetate (Phoslo -) 667 mg PO TIDCM [facility] Last Admin: 10/09/18 09:18 Dose: 667 mg Clonidine (Catapres -) 0.1 mg PO Q4H PRN PRN Reason: HYPERTENSION Clonidine (Catapres -) 0.2 mg PO BID [facility] Last Admin: 10/09/18 09:17 Dose: 0.2 mg Heparin Sodium (Porcine) (Heparin -) 5,000 unit SQ TID [facility] Last Admin: 10/09/18 05:55 Dose: 5,000 unit Insulin Aspart (Novolog Vial Sliding Scale -) 1 vial SQ [facility]; Protocol Last Admin: 10/09/18 10:38 Dose: Not Given Insulin Detemir (Levemir Vial) 10 units SQ [facility] Last Admin: 10/08/18 22:48 Dose: 10 units Isosorbide Mononitrate (Imdur -) 60 mg PO DAILY [facility] Last Admin: 10/09/18 09:16 Dose: 60 mg Labetalol HCl (Normodyne -) 400 mg PO BID [facility] Last Admin: 10/09/18 09:22 Dose: 400 mg Melatonin (Melatonin) 5 mg PO HS PRN PRN Reason: INSOMNIA Methadone HCl 40 mg/ Methadone (HCl 20 mg) 60 mg PO DAILY@0600 [facility] Last Admin: 10/09/18 05:54 Dose: 60 mg Methylprednisolone Sodium Succinate (Solu-Medrol -) 40 mg IVPUSH BID [facility] Last Admin: 10/09/18 09:27 Dose: 40 mg Nifedipine (Procardia Xl -) 90 mg PO BID [facility] Last Admin: 10/09/18 09:22 Dose: 90 mg Pantoprazole Sodium (Protonix -) 40 mg PO DAILY [facility] Last Admin: 10/09/18 09:17 Dose: 40 mg Sodium Chloride ([place] Nasal [place] -) 2 spray NS Q8H PRN PRN Reason: NASAL CONGESTION Vital Signs Period Temp Pulse Resp BP Sys/Bansal Pulse Ox Last 24 Hr 97.8 F-350 F 53-68 15-22 112-177/51-71 95-95 Constitutional: Yes: No Distress Cardiovascular: Yes: Regular Rate and Rhythm Respiratory: Yes: CTA Bilaterally (no rales) Gastrointestinal: Yes: Soft Edema: No Neurological: Yes: Alert, Oriented not agitated no jaundice, diaphoresis Assessment/Plan EKG: sinus, PVC, no ischemic changes echo 09/2018 nl LV function, mild MAC, tr MR, RVSP 32 mmHg 68M h/o HTN, DM, HLD, PAD s/p femoral stent, prior smoker, R sided lung ca s/p partial resection p/w shortness of breath: Shortness of breath, PNA, acute diastolic CHF exacerbation: - likely multifactorial - h/o lung ca s/p resection, findings concerning for PNA - abx, nebs per primary, pulm - elevated BNP (7K) with congestion on CXR, likely component of HF - echo nl LV function, remainder unremarkable, no pulm HTN noted - Clinically improved w/ HD--vol mgmt plan per renal HTN with htn urgency: - holding home diuretic, valsartan sec to BRET (? renal dysffxn will be reversible) - amlodipine stopped for edema - hydralazine stopped due to concern for drug induced lupus (elevated anti- histone ABs) - cont labetolol, clonidine, Imdur and BID Nifedipine BRET on CKD: started on HD -s/p kidney bx -manage per renal HLD: - cont statin PAD: - cont statin - held plavix for kidney bx - restart when able
--- NOTE | 2018-10-09 11:28 | CONSULT ---
- Consultation REQUESTING PROVIDER: Vascular Surgery CONSULT REQUEST: We have been asked to surgically evaluate this patient for tunneled catheter PCP: Edi Martinez HPI: Called to eval 68 yo male w/ PMHx as noted below. Currently being medically managed for SOB/PNA and BRET. A right IJ shiley was placed by ICU. PMHx: HTN, IDDM, HLD, NPH, UTI, PVD, Right lung CA PSHx: Femoral stents, Lung resection Home Medications Amlodipine Besylate/Valsartan [Amlodipine-Valsartan 10-320 mg] 1 each PO DAILY 09/17/18 Aspirin 81 mg PO DAILY 09/17/18 Atorvastatin Ca [Lipitor] 20 mg PO HS 09/17/18 Cholecalciferol (Vitamin D3) [Vitamin D3] 50,000 unit PO WEEKLY 09/17/18 Clopidogrel Bisulfate [Plavix -] 75 mg PO DAILY 09/17/18 Doxazosin Mesylate [Cardura -] 4 mg PO DAILY 09/17/18 Furosemide [Lasix -] 40 mg PO DAILY 09/17/18 Glipizide [Glipizide ER] 10 mg PO DAILY 09/17/18 Hydralazine HCl 100 mg PO DAILY 09/17/18 Labetalol HCl 300 mg PO ASDIR 09/17/18 Nateglinide [Starlix (Nf)] 120 mg PO TID 09/17/18 Potassium Chloride [K-Dur -] 10 meq PO BID 09/17/18 Triamterene/Hydrochlorothiazid [Triamterene-Hctz 37.5-25 mg Cp] 1 each PO DAILY 09/17/18 Allergies: NKDA ROS CONSTITUTIONAL: Absent: generalized weakness, malaise, loss of appetite, weight change CARDIOVASCULAR: Absent: syncope, palpitations, lightheadedness, peripheral edema RESPIRATORY: Absent: cough, stridor, hemoptysis GASTROINTESTINAL:Absent: abdominal pain, abdominal distension, constipation, melena, hematochezia GENITOURINARY: Absent: dysuria, frequency, urgency, hesitancy, hematuria, flank pain, genital pain MUSCULOSKELETAL: Absent: myalgia, arthralgia, joint swelling, back pain, neck pain SKIN: Absent: rash, itching, pallor HEMATOLOGIC/IMMUNOLOGIC: Absent: easy bleeding, easy bruising, lymphadenopathy NEUROLOGIC: Absent: headache, focal weakness, paresthesias, dizziness, unsteady gait, seizure, mental status changes, PSYCHIATRIC: Absent: anxiety, depression, suicidal or homicidal ideation, hallucinations. PHYSICAL EXAM: GENERAL: Awake, alert, and fully oriented, in no acute distress. NECK: Rt IJ shiley in place. PSYCH: Cooperative. Appropriate mood and affect. SKIN: Warm, dry, normal turgor, no rashes or lesions noted. Last Vital Signs Temp Pulse Resp BP Pulse Ox 98.1 F 63 18 151/71 95 10/09/18 10:00 10/09/18 10:00 10/09/18 10:00 10/09/18 10:00 10/09/18 09:00 CBC, BMP 10/09/18 07:35 10/09/18 07:35 INR, PTT INR 1.11 (0.83-1.09) H 09/17/18 12:23 Microbiology 10/05/18 10:38 Blood - Peripheral Venous Blood Culture - Preliminary NO GROWTH OBTAINED AFTER 96 HOURS 10/05/18 13:45 Blood - Peripheral Venous Blood Culture - Preliminary NO GROWTH OBTAINED AFTER 72 HOURS Problem List - Problems (1) BRET (acute kidney injury) Assessment/Plan: Patient currently being managed medically for his BRET. Currently leukocytosis...spuriously elevated due to steroids? f/u Blood culture f/u Urine culture Per Dr. Iniguez, no plans to do HD today or tomorrow. However, he will need chcf access. Until a clear source of his elevated WBC is identified, we will hold off on placing a permacatheter. Will keep shiley in place for now. If blood cultures +, will need to remove Cont medical mangement Vascular Surgery to cont following Above plan discussed with my attending and agrees. Code(s): N17.9 - ACUTE KIDNEY FAILURE, UNSPECIFIED (2) CHF exacerbation Code(s): I50.9 - HEART FAILURE, UNSPECIFIED (3) Chronic renal insufficiency, stage III (moderate) Code(s): N18.3 - CHRONIC KIDNEY DISEASE, STAGE 3 (MODERATE) (4) Diabetes Code(s): E11.9 - TYPE 2 DIABETES MELLITUS WITHOUT COMPLICATIONS Visit type - Case Type Case Type: ED Admission - Emergency Emergency Visit: Yes ED Registration Date: 09/17/18 Care time: The patient presented to the Emergency Department on the above date and was hospitalized for further evaluation of their emergent condition. - New patient This patient is new to me today: Yes Date on this admission: 10/09/18
--- NOTE | 2018-10-09 11:56 | PN ---
Progress Note (short form) - Note Progress Note: events noted pt in the medical floors-- awaiting transfer to [facility] awake and alert on 100%NRB feeling well no complaints Vital Signs - 24 hr 10/08/18 10/08/18 10/08/18 13:30 14:00 14:30 Temperature 98.4 F Pulse Rate 54 L 54 L 54 L Respiratory 18 15 18 Rate Blood Pressure 166/60 130/61 123/65 O2 Sat by Pulse Oximetry (%) 10/08/18 10/08/18 10/08/18 15:00 15:30 16:00 Temperature 98.2 F Pulse Rate 54 L 56 L 55 L Respiratory 18 18 18 Rate Blood Pressure 122/62 112/52 L 115/53 L O2 Sat by Pulse Oximetry (%) 10/08/18 10/08/18 10/08/18 16:30 16:57 18:00 Temperature 98.6 F Pulse Rate 54 L 56 L 67 Respiratory 18 18 18 Rate Blood Pressure 137/51 L 156/53 L 148/55 L O2 Sat by Pulse Oximetry (%) 10/08/18 10/08/18 10/08/18 20:00 21:00 22:00 Temperature 98.1 F Pulse Rate 65 68 Respiratory 22 H 22 H Rate Blood Pressure 175/57 H 177/62 H O2 Sat by Pulse 95 Oximetry (%) 10/09/18 10/09/18 10/09/18 02:00 05:27 06:00 Temperature 97.8 F 98.2 F Pulse Rate 64 62 Respiratory 20 20 Rate Blood Pressure 159/65 156/61 O2 Sat by Pulse 95 Oximetry (%) 10/09/18 10/09/18 09:00 10:00 Temperature 98.1 F Pulse Rate 63 Respiratory 18 Rate Blood Pressure 151/71 O2 Sat by Pulse 95 Oximetry (%) Current Medications Generic Name Dose Route Start Last Admin Trade Name Freq PRN Reason Stop Dose Admin Alprazolam 0.25 mg 10/08/18 21:58 Xanax - PO BID PRN ANXIETY Artificial Tears 2 drop 10/08/18 21:58 Artificial Tears OU Q8H PRN DRY EYES Atorvastatin Calcium 20 mg 10/08/18 22:00 10/08/18 22:49 Lipitor - PO 20 mg HS [facility] Administration Calcium Acetate 667 mg 10/09/18 08:00 10/09/18 09:18 Phoslo - PO 667 mg TIDCM [facility] Administration Clonidine 0.1 mg 10/08/18 21:58 Catapres - PO Q4H PRN HYPERTENSION Clonidine 0.2 mg 10/08/18 22:00 10/09/18 09:17 Catapres - PO 0.2 mg BID [facility] Administration Heparin Sodium (Porcine) 5,000 unit 10/08/18 22:00 10/09/18 05:55 Heparin - SQ 5,000 unit TID [facility] Administration Insulin Aspart 1 vial 10/08/18 22:00 10/09/18 10:38 Novolog Vial Sliding Scale - SQ Not Given [facility] Protocol Insulin Detemir 10 units 10/08/18 22:00 10/08/18 22:48 Levemir Vial SQ 10 units HS [facility] Administration Isosorbide Mononitrate 60 mg 10/09/18 10:00 10/09/18 09:16 Imdur - PO 60 mg DAILY [facility] Administration Labetalol HCl 400 mg 10/08/18 22:00 10/09/18 09:22 Normodyne - PO 400 mg BID [facility] Administration Melatonin 5 mg 10/08/18 21:58 Melatonin PO HS PRN INSOMNIA Methadone HCl 40 mg/ Methadone 60 mg 10/09/18 06:00 10/09/18 05:54 HCl 20 mg PO 60 mg DAILY@0600 [facility] Administration Methylprednisolone Sodium Succinate 40 mg 10/08/18 22:00 10/09/18 09:27 Solu-Medrol - IVPUSH 40 mg BID [facility] Administration Nifedipine 90 mg 10/08/18 22:00 10/09/18 09:22 Procardia Xl - PO 90 mg BID [facility] Administration Pantoprazole Sodium 40 mg 10/09/18 10:00 10/09/18 09:17 Protonix - PO 40 mg DAILY [facility] Administration Sodium Chloride 2 spray 10/08/18 21:58 [place] Nasal [place] - NS Q8H PRN NASAL CONGESTION Laboratory Results - last 24 hr 10/05/18 10/08/18 10/08/18 13:45 18:07 21:24 WBC RBC Hgb Hct MCV MCH MCHC RDW Plt Count MPV LA PTT Baseline 29.5 dRVVT Confirm Interp 40.1 Lupus Anticoag Comment Comment: Sodium Potassium Chloride Carbon Dioxide Anion Gap BUN Creatinine Est GFR (CKD-EPI)AfAm Est GFR (CKD-EPI)NonAf POC Glucometer 113 368 Random Glucose Calcium CHICHI Screen Negative Anti-ss DNA IgG Ab <20 Tot Complement (CH50) > 60 10/09/18 10/09/18 10/09/18 06:04 07:35 07:35 WBC 20.7 H RBC 2.81 L Hgb 8.0 L Hct 24.7 L MCV 88.0 MCH 28.4 MCHC 32.3 RDW 14.4 Plt Count 228 MPV 8.4 LA PTT Baseline dRVVT Confirm Interp Lupus Anticoag Comment Sodium 138 Potassium 4.3 Chloride 101 Carbon Dioxide 33 H Anion Gap 5 L BUN 43.3 H Creatinine 2.2 H Est GFR (CKD-EPI)AfAm 33.92 Est GFR (CKD-EPI)NonAf 29.27 POC Glucometer 144 Random Glucose 128 H Calcium 7.7 L CHICHI Screen Anti-ss DNA IgG Ab Tot Complement (CH50) 10/09/18 10:32 WBC RBC Hgb Hct MCV MCH MCHC RDW Plt Count MPV LA PTT Baseline dRVVT Confirm Interp Lupus Anticoag Comment Sodium Potassium Chloride Carbon Dioxide Anion Gap BUN Creatinine Est GFR (CKD-EPI)AfAm Est GFR (CKD-EPI)NonAf POC Glucometer 146 Random Glucose Calcium CHICHI Screen Anti-ss DNA IgG Ab Tot Complement (CH50) S1 s2 RRR Lungs decreased breath sounds abd- soft, NT edema decreased PLAN CHF--on HD leucocytosis-- blood cultures , ua and urine culture-- negative may be elevate due to solumedrol off antibiotics on solumedrol Hep C ab positive, RNA PCR NOT DETECTED has splenic lesion-- can not do contrast imaging due to decreased renal function Dialysis per renal Rheumatology eval for elevated histone antibodies hematology eval for elevate WBC transfer to tele Problem List - Problems (1) BRET (acute kidney injury) Code(s): N17.9 - ACUTE KIDNEY FAILURE, UNSPECIFIED (2) Acute and chronic respiratory failure Code(s): J96.20 - ACUTE AND CHR RESP FAILURE, UNSP W HYPOXIA OR HYPERCAPNIA (3) [id number] kidney injury Code(s): N17.9 - ACUTE KIDNEY FAILURE, UNSPECIFIED; N18.9 - CHRONIC KIDNEY DISEASE, UNSPECIFIED (4) CHF exacerbation Code(s): I50.9 - HEART FAILURE, UNSPECIFIED (5) Diabetes Code(s): E11.9 - TYPE 2 DIABETES MELLITUS WITHOUT COMPLICATIONS
[2018-10-09] MEDS ORDERED: PT OWN MED DRAWER 7, Y5N ONE (13:51)
--- NOTE | 2018-10-09 15:24 | PN ---
Progress Note (short form) - Note Progress Note: Renal follow up for BRET Pt seen and examined at the bedside on NRB O2 feels better no cp, abd pain, fever or chills s/p dialysis yesterday Vital Signs Temperature 98.1 F 10/09/18 10:00 Pulse Rate 63 10/09/18 10:00 Respiratory Rate 18 10/09/18 10:00 Blood Pressure 151/71 10/09/18 10:00 O2 Sat by Pulse Oximetry (%) 95 10/09/18 09:00 Intake & Output 10/06/18 10/07/18 10/08/18 10/09/18 23:59 23:59 23:59 23:59 Intake Total 810 200 170 250 Output Total 1100 650 550 300 Balance -290 -450 -380 -50 Weight 89.766 kg 82.599 kg NAD RRR, no M/R BS improved no edema CBC, BMP 10/09/18 07:35 10/09/18 07:35 Current Medications Alprazolam (Xanax -) 0.25 mg PO BID PRN PRN Reason: ANXIETY Artificial Tears (Artificial Tears) 2 drop OU Q8H PRN PRN Reason: DRY EYES Atorvastatin Calcium (Lipitor -) 20 mg PO HS [facility] Last Admin: 10/08/18 22:49 Dose: 20 mg Calcium Acetate (Phoslo -) 667 mg PO TIDCM [facility] Last Admin: 10/09/18 13:56 Dose: 667 mg Clonidine (Catapres -) 0.1 mg PO Q4H PRN PRN Reason: HYPERTENSION Clonidine (Catapres -) 0.2 mg PO BID [facility] Last Admin: 10/09/18 09:17 Dose: 0.2 mg Heparin Sodium (Porcine) (Heparin -) 5,000 unit SQ TID [facility] Last Admin: 10/09/18 13:57 Dose: 5,000 unit Insulin Aspart (Novolog Vial Sliding Scale -) 1 vial SQ [facility]; Protocol Last Admin: 10/09/18 10:38 Dose: Not Given Insulin Detemir (Levemir Vial) 10 units SQ [facility] Last Admin: 10/08/18 22:48 Dose: 10 units Isosorbide Mononitrate (Imdur -) 60 mg PO DAILY [facility] Last Admin: 10/09/18 09:16 Dose: 60 mg Labetalol HCl (Normodyne -) 400 mg PO BID [facility] Last Admin: 10/09/18 09:22 Dose: 400 mg Melatonin (Melatonin) 5 mg PO HS PRN PRN Reason: INSOMNIA Methadone HCl 40 mg/ Methadone (HCl 20 mg) 60 mg PO DAILY@0600 [facility] Last Admin: 10/09/18 05:54 Dose: 60 mg Methylprednisolone Sodium Succinate (Solu-Medrol -) 40 mg IVPUSH BID [facility] Last Admin: 10/09/18 09:27 Dose: 40 mg Nifedipine (Procardia Xl -) 90 mg PO BID [facility] Last Admin: 10/09/18 09:22 Dose: 90 mg Pantoprazole Sodium (Protonix -) 40 mg PO DAILY [facility] Last Admin: 10/09/18 09:17 Dose: 40 mg Sodium Chloride ([place] Nasal [place] -) 2 spray NS Q8H PRN PRN Reason: NASAL CONGESTION 68 year old gentleman with hx of of hypertension, DM on insulin, PVD s/ p Le stents, BPH, Hx of Lung cancer s/p resection who presented with SOB and noted to have BUN/Cr of 79/3.2. #Acute shortness of breath form diastolic HF + PNA #Peripheral edema #Acute on chronic renal insufficiency #Anemia #Hypertension #BPH No acute need for [employer] today will likely require dialysis for the immediate future Vascular sx consulted for tunneled catheter placement will order blood culture to r/o bacteremia given high WBC Preliminary biopsy results show diabetic nephropathy (extensive) with small non- acute FSGS and ATN can monitor for recovery as outpatient as well with BUN/Cr trends and 24 hour Urine CrCL Cr was 3.2 in August, 2.1 in February UPCR is 3.2, CHICHI negative, ANCA is negative, anti-histone ab is moderate positive would avoid any further hydralazine use Renal imaging showed no obstruction will need further imaging of splenic lesion Dariusz Iniguez DO
--- NOTE | 2018-10-09 16:29 | CONSULT ---
Consultation: CONSULT REQUEST: HEME/ONC Dr. Ribeiro HISTORY OF PRESENT ILLNESS: Patient is a 68 yo M with a PMHx of HTN, IDDM, CKD, R sided Lung Mass (s/p resection), presented on 09/17 because of worsening shortness of breath and was being treated for pneumonia and chf exacerbation. Patient developed BRET on CKD ( s/p kidney biopsy) with multiple rounds of dialysis via RIJ trialysis cath. Patient's respiratory status improved and was transferred out of ICU to [facility]. Tunnelled cath is planned but patient has had persistent leukocytosis. Patient says his breathing has improved. He denies fevers, chills, nausea, vomiting, chills, urinary changes, blood in stool, hematemesis, chest pain. He says his last colonoscopy was 1 year ago and was normal. He has a sister who was recently diagnosed with colon cancer at 60 years of age Patient is a former smoker, quit 2007. Smoked 2 PPD since 16 years old. REVIEW OF SYSTEMS: CONSTITUTIONAL: Absent: fever, chills, diaphoresis, generalized weakness, malaise, loss of appetite, weight change HEENT: Absent: rhinorrhea, nasal congestion, throat pain, throat swelling, difficulty swallowing, mouth swelling, ear pain, eye pain, visual changes CARDIOVASCULAR: Absent: chest pain, syncope, palpitations, irregular heart rate, lightheadedness , peripheral edema RESPIRATORY: SOB but has improved Absent: cough, dyspnea with exertion, orthopnea, wheezing, stridor, hemoptysis GASTROINTESTINAL: Absent: abdominal pain, abdominal distension, nausea, vomiting, diarrhea, constipation, melena, hematochezia GENITOURINARY: Absent: dysuria, frequency, urgency, hesitancy, hematuria, flank pain, genital pain HEMATOLOGIC/IMMUNOLOGIC: Absent: easy bleeding, easy bruising, lymphadenopathy, frequent infections PHYSICAL EXAMINATION Vital Signs - 24 hr 10/08/18 10/08/18 10/08/18 16:30 16:57 18:00 Temperature 98.6 F Pulse Rate 54 L 56 L 67 Respiratory 18 18 18 Rate Blood Pressure 137/51 L 156/53 L 148/55 L O2 Sat by Pulse Oximetry (%) 10/08/18 10/08/18 10/08/18 20:00 21:00 22:00 Temperature 98.1 F Pulse Rate 65 68 Respiratory 22 H 22 H Rate Blood Pressure 175/57 H 177/62 H O2 Sat by Pulse 95 Oximetry (%) 10/09/18 10/09/18 10/09/18 02:00 05:27 06:00 Temperature 97.8 F 98.2 F Pulse Rate 64 62 Respiratory 20 20 Rate Blood Pressure 159/65 156/61 O2 Sat by Pulse 95 Oximetry (%) 10/09/18 10/09/18 10/09/18 09:00 10:00 14:00 Temperature 98.1 F 98.1 F Pulse Rate 63 66 Respiratory 18 20 Rate Blood Pressure 151/71 154/58 L O2 Sat by Pulse 95 Oximetry (%) GENERAL: mildly tachypneic when speaking. NECK: supple, no lymphadenopathy Rt IJ shiley in place. Heart: RRR, no murmurs appreciated Lungs: crackles in L base PSYCH: Cooperative. Appropriate mood and affect. Ext: no edema Laboratory Results - last 24 hr 10/05/18 10/08/18 10/08/18 13:45 18:07 21:24 WBC RBC Hgb Hct MCV MCH MCHC RDW Plt Count MPV Sodium Potassium Chloride Carbon Dioxide Anion Gap BUN Creatinine Est GFR (CKD-EPI)AfAm Est GFR (CKD-EPI)NonAf POC Glucometer 113 368 Random Glucose Calcium Histone Antibodies 1.0 H Tot Complement (CH50) > 60 10/09/18 10/09/18 10/09/18 06:04 07:35 07:35 WBC 20.7 H RBC 2.81 L Hgb 8.0 L Hct 24.7 L MCV 88.0 MCH 28.4 MCHC 32.3 RDW 14.4 Plt Count 228 MPV 8.4 Sodium 138 Potassium 4.3 Chloride 101 Carbon Dioxide 33 H Anion Gap 5 L BUN 43.3 H Creatinine 2.2 H Est GFR (CKD-EPI)AfAm 33.92 Est GFR (CKD-EPI)NonAf 29.27 POC Glucometer 144 Random Glucose 128 H Calcium 7.7 L Histone Antibodies Tot Complement (CH50) 10/09/18 10:32 WBC RBC Hgb Hct MCV MCH MCHC RDW Plt Count MPV Sodium Potassium Chloride Carbon Dioxide Anion Gap BUN Creatinine Est GFR (CKD-EPI)AfAm Est GFR (CKD-EPI)NonAf POC Glucometer 146 Random Glucose Calcium Histone Antibodies Tot Complement (CH50) Active Medications Generic Name Dose Route Start Last Admin Trade Name Freq PRN Reason Stop Dose Admin Alprazolam 0.25 mg 10/08/18 21:58 Xanax - PO BID PRN ANXIETY Artificial Tears 2 drop 10/08/18 21:58 Artificial Tears OU Q8H PRN DRY EYES Atorvastatin Calcium 20 mg 10/08/18 22:00 10/08/18 22:49 Lipitor - PO 20 mg HS [facility] Administration Calcium Acetate 667 mg 10/09/18 08:00 10/09/18 13:56 Phoslo - PO 667 mg TIDCM [facility] Administration Clonidine 0.1 mg 10/08/18 21:58 Catapres - PO Q4H PRN HYPERTENSION Clonidine 0.2 mg 10/08/18 22:00 10/09/18 09:17 Catapres - PO 0.2 mg BID [facility] Administration Heparin Sodium (Porcine) 5,000 unit 10/08/18 22:00 10/09/18 13:57 Heparin - SQ 5,000 unit TID [facility] Administration Insulin Aspart 1 vial 10/08/18 22:00 10/09/18 10:38 Novolog Vial Sliding Scale - SQ Not Given [facility] Protocol Insulin Detemir 10 units 10/08/18 22:00 10/08/18 22:48 Levemir Vial SQ 10 units HS [facility] Administration Isosorbide Mononitrate 60 mg 10/09/18 10:00 10/09/18 09:16 Imdur - PO 60 mg DAILY [facility] Administration Labetalol HCl 400 mg 10/08/18 22:00 10/09/18 09:22 Normodyne - PO 400 mg BID [facility] Administration Melatonin 5 mg 10/08/18 21:58 Melatonin PO HS PRN INSOMNIA Methadone HCl 40 mg/ Methadone 60 mg 10/09/18 06:00 10/09/18 05:54 HCl 20 mg PO 60 mg DAILY@0600 [facility] Administration Methylprednisolone Sodium Succinate 40 mg 10/08/18 22:00 10/09/18 09:27 Solu-Medrol - IVPUSH 40 mg BID [facility] Administration Nifedipine 90 mg 10/08/18 22:00 10/09/18 09:22 Procardia Xl - PO 90 mg BID [facility] Administration Pantoprazole Sodium 40 mg 10/09/18 10:00 10/09/18 09:17 Protonix - PO 40 mg DAILY [facility] Administration Sodium Chloride 2 spray 10/08/18 21:58 [place] Nasal [place] - NS Q8H PRN NASAL CONGESTION ASSESSMENT/PLAN: #Anemia #Leukocytosis #Acute shortness of breath form diastolic HF + PNA #Peripheral edema #Acute on chronic renal insufficiency #Hypertension #BPH -Leukocytosis likely 2/2 Steroid use, +/- reactive component -Anemia likely from chronic renal disease, but recommend Iron studies, retic count, LDH, folic acid. -Erythropoetin level -Previous xrays with effusions and infiltrates. Last CXR 10/05. Will repeat CXR. -blood cultures pending -currently with no signs of infection, but will need further workup. Dispo: We will continue to follow the patient. Thank you for this consultative opportunity. Visit type - Emergency Visit Emergency Visit: Yes ED Registration Date: 09/17/18 Care time: The patient presented to the Emergency Department on the above date and was hospitalized for further evaluation of their emergent condition. - New Patient This patient is new to me today: Yes Date on this admission: 10/09/18 - Critical Care Critical Care patient: No
[2018-10-09] MEDS ORDERED: INSULIN (NOVOLOG) ASPART 100 UNITS/ML 10ML VIAL ONE (17:10)
[2018-10-09] MEDS ORDERED: INSULIN SLIDING SCALE (NOVOLOG) 1 VIAL SQ SCH (17:34)
[2018-10-09] MEDS: INSULIN (LEVEMIR) 100 UNITS/ML UNITS SQ SCH (21:46)
[2018-10-09] MEDS: ATORVASTATIN CA 20 MG TABLET (FP) PO SCH (21:48)
[2018-10-10] MEDS ORDERED: METHADONE HCL 40 MG DISPERSABLE TABLET ONE (05:54)
[2018-10-10] MEDS ORDERED: METHADONE HCL 10 MG TABLET ONE (05:55)
[2018-10-10] MEDS: METHADONE 40 MG, METHADONE 20 MG PO SCH (06:34)
[2018-10-10] MEDS: HEPARIN NA (PORCINE) 5,000 UNITS/ML 1ML VIAL SQ SCH ×3 (06:36→22:24)
[2018-10-10] MEDS: INSULIN SLIDING SCALE (NOVOLOG) 1 VIAL SQ SCH ×4 (06:43→22:26)
[2018-10-10] MEDS: CALCIUM ACETATE 667 MG CAPSULE (FP) PO SCH ×3 (07:32→17:29)
--- NOTE | 2018-10-10 07:39 | PN ---
Teaching Attending Note Name of Resident: Kellie Reilly ATTENDING PHYSICIAN STATEMENT I saw and evaluated the patient. I reviewed the resident's note and discussed the case with the resident. I agree with the resident's findings and plan as documented. SUBJECTIVE: Patient seen and examined 68 year old being evaluated for leukocytosis. In 08/2017 , normal WBC count. Since admission elevated WBC count with predominant PMN's except for one hospital day. Hospital course complicated by bilateral infiltrates, pneumonia, pleural effusion, BRET on CKD, anemia, need for dialysis, respiratory failure with need for rebreather. Has been on steroids and dosage recently increased . Last Vital Signs Temp Pulse Resp BP Pulse Ox 97.8 F 60 20 163/70 97 10/10/18 06:00 10/10/18 06:00 10/10/18 06:00 10/10/18 06:00 10/09/18 22:00 HEENT: JUSTINE, EOM Intact Oropharynx: No thrush, No mucositis Nodes: Without adenopathy Cor: RSR, No murmurs, No gallops Lungs: few rales and coarse breath sounds left base Abd: Soft, Normal bowel sounds, No organomegaly, ventral hernia testes descended, uncircumcised male Ext:LE edema bilateraqlly Skin: No rashes, Integument intact CBC, BMP 10/09/18 07:35 10/09/18 07:35 Current Medications Generic Name Dose Route Start Last Admin Trade Name Freq PRN Reason Stop Dose Admin Alprazolam 0.25 mg 10/08/18 21:58 Xanax - PO BID PRN ANXIETY Artificial Tears 2 drop 10/08/18 21:58 Artificial Tears OU Q8H PRN DRY EYES Atorvastatin Calcium 20 mg 10/08/18 22:00 10/09/18 21:48 Lipitor - PO 20 mg HS GREGORY Administration Calcium Acetate 667 mg 10/09/18 08:00 10/09/18 18:55 Phoslo - PO 667 mg TIDCM G[facility] Administration Clonidine 0.1 mg 10/08/18 21:58 Catapres - PO Q4H PRN HYPERTENSION Clonidine 0.2 mg 10/08/18 22:00 10/09/18 21:46 Catapres - PO 0.2 mg BID GREG[facility] Administration Heparin Sodium (Porcine) 5,000 unit 10/08/18 22:00 10/10/18 06:36 Heparin - SQ 5,000 unit TID GREG[facility] Administration Insulin Aspart 1 vial 10/09/18 21:37 10/10/18 06:43 Novolog Vial Sliding Scale - SQ Not Given ACHS [facility] Protocol Insulin Detemir 10 units 10/08/18 22:00 10/09/18 21:46 Levemir Vial SQ 10 units HS GREGORY Administration Isosorbide Mononitrate 60 mg 10/09/18 10:00 10/09/18 09:16 Imdur - PO 60 mg DAILY [facility] Administration Labetalol HCl 400 mg 10/08/18 22:00 10/09/18 21:48 Normodyne - PO 400 mg BID G[facility] Administration Melatonin 5 mg 10/08/18 21:58 Melatonin PO HS PRN INSOMNIA Methadone HCl 40 mg/ Methadone 60 mg 10/09/18 06:00 10/10/18 06:34 HCl 20 mg PO 60 mg DAILY@0600 [facility] Administration Methylprednisolone Sodium Succinate 40 mg 10/08/18 22:00 10/09/18 21:52 Solu-Medrol - IVPUSH 40 mg BID [facility] Administration Nifedipine 90 mg 10/08/18 22:00 10/09/18 21:48 Procardia Xl - PO 90 mg BID [facility] Administration Pantoprazole Sodium 40 mg 10/09/18 10:00 10/09/18 09:17 Protonix - PO 40 mg DAILY [facility] Administration Sodium Chloride 2 spray 10/08/18 21:58 [place] Nas[place] - NS Q8H PRN NASAL CONGESTION Impression: Leukocytosis Previously normal WBC in 08/2017. Anemia, and normal platelets with no significant early WBC forms, eosinophils, , basophils, thrombocytosis all speak against a myeloproliferative neoplasm. Pneumonia, steroids, reactive changes most likely. Anemia- likely acute and chronic disease with renal insufficiency. Suggest - follow up with repeat Chest x-ray , re-culture , Fe+ studies, retic, epo level as patient may be candidate for erythropoietin stimulating agent. Would ask ID to f/u after reculturing and x-ray studies . Hold off on catheter until reassessment. To f/u. OBJECTIVE: ASSESSMENT AND PLAN:
[2018-10-10 07:47] LABS: BASO % 0.1 % (0-2.0); EOS % 0.2 % (0-4.5); HEMATOCRIT 24.2 % (35.4-49); HEMOGLOBIN 7.8 GM/dL (11.7-16.9); LYMPH % 3.7 % (8-40); MCH 28.5 pg (25.7-33.7); MCHC 32.4 g/dl (32.0-35.9); MEAN PLT VOLUME 8.5 fl (7.5-11.1); MONO % 3.8 % (3.8-10.2); NEUT % 92.2 % (42.8-82.8); PLATELET COUNT 213 K/MM3 (134-434); RBC 2.75 M/mm3 (4.00-5.60); RDW 14.6 % (11.9-15.9); WHITE BLOOD COUNT 18.8 K/mm3 (4.0-10.0)
[2018-10-10 08:25] LABS: ALBUMIN 2.5 g/dl (3.4-5.0); BILIRUBIN,TOTAL 0.4 mg/dL (0.2-1); BLOOD UREA NITROGEN 63.6 mg/dL (7-18); CALCIUM 7.9 mg/dL (8.5-10.1); CREATININE 2.7 mg/dL (0.55-1.3); POTASSIUM 4.6 mmol/L (3.5-5.1); TOT PROT 5.5 g/dl (6.4-8.2)
[2018-10-10] MEDS: methylPREDNISolone NA SUCC 40 MG/1 ML VIAL IVPUSH SCH ×2 (09:31→22:24)
[2018-10-10] MEDS: cloNIDine HCL 0.1 MG TABLET PO SCH ×2 (09:33→22:23)
[2018-10-10] MEDS: ISOSORBIDE MONONITRATE 60 MG TAB.SR.24H (FP) PO SCH (09:33)
[2018-10-10] MEDS: PANTOPRAZOLE 40 MG TABLET (FP) PO SCH (09:33)
[2018-10-10] MEDS: LABETALOL HCL 200 MG TABLET (FP) PO SCH ×2 (09:33→22:23)
[2018-10-10] MEDS: NIFEdipine E.R. 90 MG TABLET (FP) PO SCH ×2 (09:34→22:23)
[2018-10-10 10:15] LABS: ANISOCYTOSIS 0; MACROCYTOSIS 0; PLATELET ESTIMATE NORMAL; TEAR DROP CELLS 1+
--- NOTE | 2018-10-10 10:50 | PN ---
Progress Note (short form) - Note Progress Note: sitting up in bed awake and alert on 100%NRB feeling well no complaints Vital Signs - 24 hr 10/09/18 10/09/18 10/10/18 21:00 22:00 01:54 Temperature 98.0 F 97.8 F Pulse Rate 65 68 Respiratory 20 20 Rate Blood Pressure 157/63 158/61 O2 Sat by Pulse 97 97 Oximetry (%) 10/10/18 10/10/18 10/10/18 06:00 08:32 08:43 Temperature 97.8 F 97.8 F Pulse Rate 60 56 L 56 L Respiratory 20 20 20 Rate Blood Pressure 163/70 154/69 O2 Sat by Pulse 97 94 L Oximetry (%) 10/10/18 10/10/18 15:42 17:00 Temperature 97.8 F 97.4 F L Pulse Rate 58 L 56 L Respiratory 22 H 20 Rate Blood Pressure 143/76 140/57 L O2 Sat by Pulse Oximetry (%) Laboratory Results - last 24 hr 10/09/18 10/10/18 10/10/18 21:51 06:42 07:03 WBC 18.8 H RBC 2.75 L Hgb 7.8 L Hct 24.2 L MCV 88.0 MCH 28.5 MCHC 32.4 RDW 14.6 Plt Count 213 MPV 8.5 Absolute Neuts (auto) 17.3 H Neutrophils % 92.2 H Neutrophils % (Manual) 86.0 H Band Neutrophils % 0.0 Lymphocytes % 3.7 L D Lymphocytes % (Manual) 7.0 L D Monocytes % 3.8 Monocytes % (Manual) 7 D Eosinophils % 0.2 D Eosinophils % (Manual) 0.0 Basophils % 0.1 Basophils % (Manual) 0.0 Myelocytes % (Man) 0 Promyelocytes % (Man) 0 Blast Cells % (Manual) 0 Nucleated RBC % 0 Metamyelocytes 0 Hypochromia 1+ Platelet Estimate Normal Polychromasia 1+ Poikilocytosis 1+ Basophilic Stippling 1+ Anisocytosis 0 Microcytosis 0 Macrocytosis 0 Tear Drop Cells 1+ Sodium Potassium Chloride Carbon Dioxide Anion Gap BUN Creatinine Est GFR (CKD-EPI)AfAm Est GFR (CKD-EPI)NonAf POC Glucometer 332 133 Random Glucose Calcium Ferritin Total Bilirubin AST ALT Alkaline Phosphatase LD Total Total Protein Albumin 10/10/18 10/10/1819 07:03 12:02 16:36 WBC RBC Hgb Hct MCV MCH MCHC RDW Plt Count MPV Absolute Neuts (auto) Neutrophils % Neutrophils % (Manual) Band Neutrophils % Lymphocytes % Lymphocytes % (Manual) Monocytes % Monocytes % (Manual) Eosinophils % Eosinophils % (Manual) Basophils % Basophils % (Manual) Myelocytes % (Man) Promyelocytes % (Man) Blast Cells % (Manual) Nucleated RBC % Metamyelocytes Hypochromia Platelet Estimate Polychromasia Poikilocytosis Basophilic Stippling Anisocytosis Microcytosis Macrocytosis Tear Drop Cells Sodium 136 Potassium 4.6 Chloride 98 Carbon Dioxide 29 Anion Gap 9 BUN 63.6 H Creatinine 2.7 H Est GFR (CKD-EPI)AfAm 26.48 Est GFR (CKD-EPI)NonAf 22.85 POC Glucometer 260 382 Random Glucose 123 H Calcium 7.9 L Ferritin 290.2 Total Bilirubin 0.4 AST 27 ALT 54 Alkaline Phosphatase 130 H LD Total 465 H Total Protein 5.5 L Albumin 2.5 L Current Medications Generic Name Dose Route Start Last Admin Trade Name Freq PRN Reason Stop Dose Admin Alprazolam 0.25 mg 10/08/18 21:58 Xanax - PO BID PRN ANXIETY Artificial Tears 2 drop 10/08/18 21:58 Artificial Tears OU Q8H PRN DRY EYES Atorvastatin Calcium 20 mg 10/08/18 22:00 10/09/18 21:48 Lipitor - PO 20 mg HS GREGORY Administration Calcium Acetate 667 mg 10/09/18 08:00 10/10/18 17:29 Phoslo - PO 667 mg TIDCM [facility] Administration Clonidine 0.1 mg 10/08/18 21:58 Catapres - PO Q4H PRN HYPERTENSION Clonidine 0.2 mg 10/08/18 22:00 10/10/18 09:33 Catapres - PO 0.2 mg BID [facility] Administration Heparin Sodium (Porcine) 5,000 unit 10/08/18 22:00 10/10/18 14:02 Heparin - SQ 5,000 unit TID [facility] Administration Insulin Aspart 1 vial 10/09/18 21:37 10/10/18 16:45 Novolog Vial Sliding Scale - SQ 8 units ACHS [facility] Administration Protocol Insulin Detemir 10 units 10/08/18 22:00 10/09/18 21:46 Levemir Vial SQ 10 units HS GREGORY Administration Isosorbide Mononitrate 60 mg 10/09/18 10:00 10/10/18 09:33 Imdur - PO 60 mg DAILY [facility] Administration Labetalol HCl 400 mg 10/08/18 22:00 10/10/18 09:33 Normodyne - PO 400 mg BID [facility] Administration Melatonin 5 mg 10/08/18 21:58 Melatonin PO HS PRN INSOMNIA Methadone HCl 40 mg/ Methadone 60 mg 10/09/18 06:00 10/10/18 06:34 HCl 20 mg PO 60 mg DAILY@0600 [facility] Administration Methylprednisolone Sodium Succinate 40 mg 10/08/18 22:00 10/10/18 09:31 Solu-Medrol - IVPUSH 40 mg BID [facility] Administration Nifedipine 90 mg 10/08/18 22:00 10/10/18 09:34 Procardia Xl - PO 90 mg BID [facility] Administration Pantoprazole Sodium 40 mg 10/09/18 10:00 10/10/18 09:33 Protonix - PO 40 mg DAILY [facility] Administration Sodium Chloride 2 spray 10/08/18 21:58 [place] Nas[place] - NS Q8H PRN NASAL CONGESTION S1 s2 RRR Lungs decreased breath sounds abd- soft, NT edema decreased PLAN CHF--on HD leucocytosis-- blood cultures , ua and urine culture-- negative may be elevated due to solumedrol off antibiotics on solumedrol Hep C ab positive, RNA PCR NOT DETECTED has splenic lesion-- can not do contrast imaging due to decreased renal function Dialysis per renal -- will need access for half-way dialysis hematology eval for elevate WBC noted Problem List - Problems (1) BRET (acute kidney injury) Code(s): N17.9 - ACUTE KIDNEY FAILURE, UNSPECIFIED (2) Acute and chronic respiratory failure Code(s): J96.20 - ACUTE AND CHR RESP FAILURE, UNSP W HYPOXIA OR HYPERCAPNIA (3) Pzvki-gc-dysladf kidney injury Code(s): N17.9 - ACUTE KIDNEY FAILURE, UNSPECIFIED; N18.9 - CHRONIC KIDNEY DISEASE, UNSPECIFIED (4) CHF exacerbation Code(s): I50.9 - HEART FAILURE, UNSPECIFIED (5) Diabetes Code(s): E11.9 - TYPE 2 DIABETES MELLITUS WITHOUT COMPLICATIONS
--- NOTE | 2018-10-10 10:54 | PN ---
Progress Note (short form) - Note Progress Note: s: no chest pain, palps, dizziness, dyspnea Current Medications Alprazolam (Xanax -) 0.25 mg PO BID PRN PRN Reason: ANXIETY Artificial Tears (Artificial Tears) 2 drop OU Q8H PRN PRN Reason: DRY EYES Atorvastatin Calcium (Lipitor -) 20 mg PO HS [facility] Last Admin: 10/09/18 21:48 Dose: 20 mg Calcium Acetate (Phoslo -) 667 mg PO TIDCM [facility] Last Admin: 10/10/18 07:32 Dose: 667 mg Clonidine (Catapres -) 0.1 mg PO Q4H PRN PRN Reason: HYPERTENSION Clonidine (Catapres -) 0.2 mg PO BID [facility] Last Admin: 10/10/18 09:33 Dose: 0.2 mg Heparin Sodium (Porcine) (Heparin -) 5,000 unit SQ TID [facility] Last Admin: 10/10/18 06:36 Dose: 5,000 unit Insulin Aspart (Novolog Vial Sliding Scale -) 1 vial SQ [facility]; Protocol Last Admin: 10/10/18 06:43 Dose: Not Given Insulin Detemir (Levemir Vial) 10 units SQ [facility] Last Admin: 10/09/18 21:46 Dose: 10 units Isosorbide Mononitrate (Imdur -) 60 mg PO DAILY [facility] Last Admin: 10/10/18 09:33 Dose: 60 mg Labetalol HCl (Normodyne -) 400 mg PO BID [facility] Last Admin: 10/10/18 09:33 Dose: 400 mg Melatonin (Melatonin) 5 mg PO HS PRN PRN Reason: INSOMNIA Methadone HCl 40 mg/ Methadone (HCl 20 mg) 60 mg PO DAILY@0600 [facility] Last Admin: 10/10/18 06:34 Dose: 60 mg Methylprednisolone Sodium Succinate (Solu-Medrol -) 40 mg IVPUSH BID [facility] Last Admin: 10/10/18 09:31 Dose: 40 mg Nifedipine (Procardia Xl -) 90 mg PO BID [facility] Last Admin: 10/10/18 09:34 Dose: 90 mg Pantoprazole Sodium (Protonix -) 40 mg PO DAILY [facility] Last Admin: 10/10/18 09:33 Dose: 40 mg Sodium Chloride ([place] -) 2 spray NS Q8H PRN PRN Reason: NASAL CONGESTION Vital Signs Period Temp Pulse Resp BP Sys/Bansal Pulse Ox Last 24 Hr 97.8 F-98.1 F 56-68 20-20 154-163/58-70 94-97 Constitutional: Yes: No Distress Cardiovascular: Yes: Regular Rate and Rhythm Respiratory: Yes: CTA Bilaterally (no rales) Gastrointestinal: Yes: Soft Edema: No Neurological: Yes: Alert, Oriented not agitated no jaundice, diaphoresis Assessment/Plan EKG: sinus, PVC, no ischemic changes echo 09/2018 nl LV function, mild MAC, tr MR, RVSP 32 mmHg 68M h/o HTN, DM, HLD, PAD s/p femoral stent, prior smoker, R sided lung ca s/p partial resection p/w shortness of breath: Shortness of breath, PNA, acute diastolic CHF exacerbation: - likely multifactorial - h/o lung ca s/p resection, findings concerning for PNA - abx, nebs per primary, pulm - elevated BNP (7K) with congestion on CXR, likely component of HF - echo nl LV function, remainder unremarkable, no pulm HTN noted - Clinically improved w/ HD--vol mgmt plan per renal - plans for tunneled catheter placement HTN with htn urgency: - holding home diuretic, valsartan sec to BRET (? renal dysffxn will be reversible) - amlodipine stopped for edema - hydralazine stopped due to concern for drug induced lupus (elevated anti- histone ABs) - cont labetolol, clonidine, Imdur and BID Nifedipine BRET on CKD: started on HD -s/p kidney bx -manage per renal HLD: - cont statin PAD: - cont statin - held plavix for kidney bx - restart when able
--- NOTE | 2018-10-10 11:12 | PN ---
Progress Note, Physician History of Present Illness: pulmonary aleert,feeling better,on 100%nrbm - Current Medication List Current Medications: Active Medications Alprazolam (Xanax -) 0.25 mg PO BID PRN PRN Reason: ANXIETY Artificial Tears (Artificial Tears) 2 drop OU Q8H PRN PRN Reason: DRY EYES Atorvastatin Calcium (Lipitor -) 20 mg PO HS [facility] Last Admin: 10/09/18 21:48 Dose: 20 mg Calcium Acetate (Phoslo -) 667 mg PO TIDCM [facility] Last Admin: 10/10/18 07:32 Dose: 667 mg Clonidine (Catapres -) 0.1 mg PO Q4H PRN PRN Reason: HYPERTENSION Clonidine (Catapres -) 0.2 mg PO BID [facility] Last Admin: 10/10/18 09:33 Dose: 0.2 mg Heparin Sodium (Porcine) (Heparin -) 5,000 unit SQ TID [facility] Last Admin: 10/10/18 06:36 Dose: 5,000 unit Insulin Aspart (Novolog Vial Sliding Scale -) 1 vial SQ [facility]; Protocol Last Admin: 10/10/18 06:43 Dose: Not Given Insulin Detemir (Levemir Vial) 10 units SQ [facility] Last Admin: 10/09/18 21:46 Dose: 10 units Isosorbide Mononitrate (Imdur -) 60 mg PO DAILY [facility] Last Admin: 10/10/18 09:33 Dose: 60 mg Labetalol HCl (Normodyne -) 400 mg PO BID [facility] Last Admin: 10/10/18 09:33 Dose: 400 mg Melatonin (Melatonin) 5 mg PO HS PRN PRN Reason: INSOMNIA Methadone HCl 40 mg/ Methadone (HCl 20 mg) 60 mg PO DAILY@0600 [facility] Last Admin: 10/10/18 06:34 Dose: 60 mg Methylprednisolone Sodium Succinate (Solu-Medrol -) 40 mg IVPUSH BID [facility] Last Admin: 10/10/18 09:31 Dose: 40 mg Nifedipine (Procardia Xl -) 90 mg PO BID [facility] Last Admin: 10/10/18 09:34 Dose: 90 mg Pantoprazole Sodium (Protonix -) 40 mg PO DAILY [facility] Last Admin: 10/10/18 09:33 Dose: 40 mg Sodium Chloride ([place] -) 2 spray NS Q8H PRN PRN Reason: NASAL CONGESTION - Objective Vital Signs: Vital Signs Temperature 97.8 F 10/10/18 08:32 Pulse Rate 56 L 10/10/18 08:43 Respiratory Rate 20 10/10/18 08:43 Blood Pressure 154/69 10/10/18 08:32 O2 Sat by Pulse Oximetry (%) 94 L 10/10/18 08:43 Constitutional: Yes: Well Nourished, Calm Eyes: Yes: WNL HENT: Yes: WNL Neck: Yes: WNL Cardiovascular: Yes: Regular Rate and Rhythm, S1, S2 Respiratory: Yes: Rales (few bibasialr crackles) Gastrointestinal: Yes: Normal Bowel Sounds, Soft Extremities: Yes: WNL Edema: No Labs: CBC, BMP 10/10/18 07:03 10/10/18 07:03 INR, PTT INR 1.11 (0.83-1.09) H 09/17/18 12:23 Problem List - Problems (1) [id number] kidney injury Code(s): N17.9 - ACUTE KIDNEY FAILURE, UNSPECIFIED; N18.9 - CHRONIC KIDNEY DISEASE, UNSPECIFIED (2) CHF exacerbation Code(s): I50.9 - HEART FAILURE, UNSPECIFIED (3) Chronic renal insufficiency, stage III (moderate) Code(s): N18.3 - CHRONIC KIDNEY DISEASE, STAGE 3 (MODERATE) (4) Diabetes Code(s): E11.9 - TYPE 2 DIABETES MELLITUS WITHOUT COMPLICATIONS (5) History of lung cancer Code(s): Z85.118 - PERSONAL HISTORY OF MALIGNANT NEOPLASM OF BRONCHUS AND LUNG (6) Normocytic anemia Code(s): D64.9 - ANEMIA, UNSPECIFIED (7) Dyspnea Code(s): R06.00 - DYSPNEA, UNSPECIFIED (8) Acute and chronic respiratory failure Code(s): J96.20 - ACUTE AND CHR RESP FAILURE, UNSP W HYPOXIA OR HYPERCAPNIA (9) Pneumonia Code(s): J18.9 - PNEUMONIA, UNSPECIFIED ORGANISM Assessment/Plan A/P Acute Hypoxic Respiratory Failure r/o Acute Pneumonitis/Interstitial Lung Disease r/o Pneumonia Acute on Chronic Diastolic Heart Failure Acute on Chronic Renal Failure requiring HD h/o Lung Ca HTN DM - medrol - inhaled bronchodilators - HD per renal - f/u official renal biopsy path - O2 to keep SpO2 >90% - PO as tolerated - DVT prophylaxis DR MARIE
--- NOTE | 2018-10-10 12:21 | PN ---
Progress Note (short form) - Note Progress Note: Renal follow up for BRET Pt seen and examined at the bedside on 100% NRB mask no chest pain, sob at rest making urine no acute complaints Vital Signs Temperature 97.8 F 10/10/18 08:32 Pulse Rate 56 L 10/10/18 08:43 Respiratory Rate 20 10/10/18 08:43 Blood Pressure 154/69 10/10/18 08:32 O2 Sat by Pulse Oximetry (%) 94 L 10/10/18 08:43 Intake & Output 10/07/18 10/08/18 10/09/18 10/10/18 23:59 23:59 23:59 23:59 Intake Total 200 170 450 220 Output Total 650 550 600 Balance -450 -380 -150 220 Weight 82.599 kg 83.688 kg NAD RRR, no M/R BS improved, CTA 1+ edema in LE CBC, BMP 10/10/18 07:03 10/10/18 07:03 Current Medications Alprazolam (Xanax -) 0.25 mg PO BID PRN PRN Reason: ANXIETY Artificial Tears (Artificial Tears) 2 drop OU Q8H PRN PRN Reason: DRY EYES Atorvastatin Calcium (Lipitor -) 20 mg PO HS [facility] Last Admin: 10/09/18 21:48 Dose: 20 mg Calcium Acetate (Phoslo -) 667 mg PO TIDCM [facility] Last Admin: 10/10/18 12:13 Dose: 667 mg Clonidine (Catapres -) 0.1 mg PO Q4H PRN PRN Reason: HYPERTENSION Clonidine (Catapres -) 0.2 mg PO BID [facility] Last Admin: 10/10/18 09:33 Dose: 0.2 mg Heparin Sodium (Porcine) (Heparin -) 5,000 unit SQ TID [facility] Last Admin: 10/10/18 06:36 Dose: 5,000 unit Insulin Aspart (Novolog Vial Sliding Scale -) 1 vial SQ [facility]; Protocol Last Admin: 10/10/18 12:12 Dose: 6 units Insulin Detemir (Levemir Vial) [address] [facility] Last Admin: 10/09/18 21:46 Dose: 10 units Isosorbide Mononitrate (Imdur -) 60 mg PO DAILY [facility] Last Admin: 10/10/18 09:33 Dose: 60 mg Labetalol HCl (Normodyne -) 400 mg PO BID [facility] Last Admin: 10/10/18 09:33 Dose: 400 mg Melatonin (Melatonin) 5 mg PO HS PRN PRN Reason: INSOMNIA Methadone HCl 40 mg/ Methadone (HCl 20 mg) 60 mg PO DAILY@0600 [facility] Last Admin: 10/10/18 06:34 Dose: 60 mg Methylprednisolone Sodium Succinate (Solu-Medrol -) 40 mg IVPUSH BID [facility] Last Admin: 10/10/18 09:31 Dose: 40 mg Nifedipine (Procardia Xl -) 90 mg PO BID [facility] Last Admin: 10/10/18 09:34 Dose: 90 mg Pantoprazole Sodium (Protonix -) 40 mg PO DAILY [facility] Last Admin: 10/10/18 09:33 Dose: 40 mg Sodium Chloride ([place] Nasal [place] -) 2 spray NS Q8H PRN PRN Reason: NASAL CONGESTION 68 year old gentleman with hx of of hypertension, DM on insulin, PVD s/ p Le stents, BPH, Hx of Lung cancer s/p resection who presented with SOB and noted to have BUN/Cr of 79/3.2. 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 Tubular atrophy and intersitial fibrosis, moderate. Proxiamal tubular degenerative and regenerative changes. Arteriosclerosis, moderate to severe. UPCR is 3.2, CHICHI negative, ANCA is negative, anti-histone ab is moderate positive would avoid any further hydralazine use Renal imaging showed no obstruction will need further imaging of splenic lesion Dariusz Iniguez DO
[2018-10-10] MEDS: ATORVASTATIN CA 20 MG TABLET (FP) PO SCH (22:23)
[2018-10-10] MEDS: INSULIN (LEVEMIR) 100 UNITS/ML UNITS SQ SCH (22:32)
[2018-10-11] MEDS ORDERED: METHADONE HCL 40 MG DISPERSABLE TABLET ONE (05:40)
[2018-10-11] MEDS ORDERED: METHADONE HCL 10 MG TABLET ONE (05:41)
[2018-10-11] MEDS: HEPARIN NA (PORCINE) 5,000 UNITS/ML 1ML VIAL SQ SCH ×3 (06:14→22:31)
[2018-10-11] MEDS: METHADONE 40 MG, METHADONE 20 MG PO SCH (06:15)
[2018-10-11] MEDS: INSULIN SLIDING SCALE (NOVOLOG) 1 VIAL SQ SCH ×4 (06:18→22:34)
[2018-10-11] MEDS ORDERED: INSULIN (LEVEMIR) 100 UNITS/ML UNITS SQ ONE (06:38)
[2018-10-11] MEDS ORDERED: INSULIN (NOVOLOG) ASPART 100 UNITS/ML 10ML VIAL ONE (06:39)
--- NOTE | 2018-10-11 07:24 | PN ---
Physical Exam: Heme ONC SUBJECTIVE: Patient seen and examined. Currently on 4 L on Nasal cannula No complaints. Says he is breathing better today. OBJECTIVE: Vital Signs Period Temp Pulse Resp BP Sys/Bansal Pulse Ox Last 24 Hr 97.4 F-98.1 F 56-71 18-22 140-154/50-76 94-99 GENERAL: The patient is awake, alert, and fully oriented, sitting on chair. EYES: extraocular movements intact, sclera anicteric, conjunctiva clear. ENT: oropharynx clear without exudates, moist mucous membranes. No thrush NECK: supple. no lymphadenopathy LUNGS: rales at the bases L>R HEART: Regular rate and rhythm, no murmurs appreciated ABDOMEN: Soft, nontender, nondistended, ventral hernia, normoactive bowel sounds , no hepatospelnomegaly. EXTREMITIES: 2+ pulses, 1+ edema b/l in LE NEUROLOGICAL: Cranial nerves II through XII grossly intact PSYCH: Normal mood, normal affect. Laboratory Results - last 24 hr 10/10/18 10/10/18 10/10/18 07:03 07:03 07:03 WBC 18.8 H RBC 2.75 L Hgb 7.8 L Hct 24.2 L MCV 88.0 MCH 28.5 MCHC 32.4 RDW 14.6 Plt Count 213 MPV 8.5 Absolute Neuts (auto) 17.3 H Neutrophils % 92.2 H Neutrophils % (Manual) 86.0 H Band Neutrophils % 0.0 Lymphocytes % 3.7 L D Lymphocytes % (Manual) 7.0 L D Monocytes % 3.8 Monocytes % (Manual) 7 D Eosinophils % 0.2 D Eosinophils % (Manual) 0.0 Basophils % 0.1 Basophils % (Manual) 0.0 Myelocytes % (Man) 0 Promyelocytes % (Man) 0 Blast Cells % (Manual) 0 Nucleated RBC % 0 Metamyelocytes 0 Hypochromia 1+ Platelet Estimate Normal Polychromasia 1+ Poikilocytosis 1+ Basophilic Stippling 1+ Anisocytosis 0 Microcytosis 0 Macrocytosis 0 Tear Drop Cells 1+ Sodium 136 Potassium 4.6 Chloride 98 Carbon Dioxide 29 Anion Gap 9 BUN 63.6 H Creatinine 2.7 H Est GFR (CKD-EPI)AfAm 26.48 Est GFR (CKD-EPI)NonAf 22.85 POC Glucometer Random Glucose 123 H Calcium 7.9 L Iron 47 TIBC 231 L Iron Saturation 20 Unsaturated IBC 184 Ferritin 290.2 Total Bilirubin 0.4 AST 27 ALT 54 Alkaline Phosphatase 130 H LD Total 465 H Total Protein 5.5 L Albumin 2.5 L 10/10/18 10/10/18 10/10/18 12:02 16:36 22:25 WBC RBC Hgb Hct MCV MCH MCHC RDW Plt Count MPV Absolute Neuts (auto) Neutrophils % Neutrophils % (Manual) Band Neutrophils % Lymphocytes % Lymphocytes % (Manual) Monocytes % Monocytes % (Manual) Eosinophils % Eosinophils % (Manual) Basophils % Basophils % (Manual) Myelocytes % (Man) Promyelocytes % (Man) Blast Cells % (Manual) Nucleated RBC % Metamyelocytes Hypochromia Platelet Estimate Polychromasia Poikilocytosis Basophilic Stippling Anisocytosis Microcytosis Macrocytosis Tear Drop Cells Sodium Potassium Chloride Carbon Dioxide Anion Gap BUN Creatinine Est GFR (CKD-EPI)AfAm Est GFR (CKD-EPI)NonAf POC Glucometer 260 382 369 Random Glucose Calcium Iron TIBC Iron Saturation Unsaturated IBC Ferritin Total Bilirubin AST ALT Alkaline Phosphatase LD Total Total Protein Albumin 10/11/18 06:17 WBC RBC Hgb Hct MCV MCH MCHC RDW Plt Count MPV Absolute Neuts (auto) Neutrophils % Neutrophils % (Manual) Band Neutrophils % Lymphocytes % Lymphocytes % (Manual) Monocytes % Monocytes % (Manual) Eosinophils % Eosinophils % (Manual) Basophils % Basophils % (Manual) Myelocytes % (Man) Promyelocytes % (Man) Blast Cells % (Manual) Nucleated RBC % Metamyelocytes Hypochromia Platelet Estimate Polychromasia Poikilocytosis Basophilic Stippling Anisocytosis Microcytosis Macrocytosis Tear Drop Cells Sodium Potassium Chloride Carbon Dioxide Anion Gap BUN Creatinine Est GFR (CKD-EPI)AfAm Est GFR (CKD-EPI)NonAf POC Glucometer 307 Random Glucose Calcium Iron TIBC Iron Saturation Unsaturated IBC Ferritin Total Bilirubin AST ALT Alkaline Phosphatase LD Total Total Protein Albumin Active Medications Generic Name Dose Route Start Last Admin Trade Name Freq PRN Reason Stop Dose Admin Alprazolam 0.25 mg 10/08/18 21:58 Xanax - PO BID PRN ANXIETY Artificial Tears 2 drop 10/08/18 21:58 Artificial Tears OU Q8H PRN DRY EYES Atorvastatin Calcium 20 mg 10/08/18 22:00 10/10/18 22:23 Lipitor - PO 20 mg HS [facility] Administration Calcium Acetate 667 mg 10/09/18 08:00 10/10/18 17:29 Phoslo - PO 667 mg TIDCM [facility] Administration Clonidine 0.1 mg 10/08/18 21:58 Catapres - PO Q4H PRN HYPERTENSION Clonidine 0.2 mg 10/08/18 22:00 10/10/18 22:23 Catapres - PO 0.2 mg BID [facility] Administration Heparin Sodium (Porcine) 5,000 unit 10/08/18 22:00 10/11/18 06:14 Heparin - SQ 5,000 unit TID [facility] Administration Insulin Aspart 1 vial 10/09/18 21:37 10/11/18 06:18 Novolog Vial Sliding Scale - SQ 8 units ACHS [facility] Administration Protocol Insulin Detemir 10 units 10/08/18 22:00 10/10/18 22:32 Levemir Vial SQ 10 units HS [facility] Administration Isosorbide Mononitrate 60 mg 10/09/18 10:00 10/10/18 09:33 Imdur - PO 60 mg DAILY [facility] Administration Labetalol HCl 400 mg 10/08/18 22:00 10/10/18 22:23 Normodyne - PO 400 mg BID [facility] Administration Melatonin 5 mg 10/08/18 21:58 Melatonin PO HS PRN INSOMNIA Methadone HCl 40 mg/ Methadone 60 mg 10/09/18 06:00 10/11/18 06:15 HCl 20 mg PO 60 mg DAILY@0600 [facility] Administration Methylprednisolone Sodium Succinate 40 mg 10/08/18 22:00 10/10/18 22:24 Solu-Medrol - IVPUSH 40 mg BID [facility] Administration Nifedipine 90 mg 10/08/18 22:00 10/10/18 22:23 Procardia Xl - PO 90 mg BID [facility] Administration Pantoprazole Sodium 40 mg 10/09/18 10:00 10/10/18 09:33 Protonix - PO 40 mg DAILY [facility] Administration Sodium Chloride 2 spray 10/08/18 21:58 [place] Nasal [place] - NS Q8H PRN NASAL CONGESTION ASSESSMENT/PLAN: #Anemia #Leukocytosis #Acute shortness of breath form diastolic HF + PNA #Peripheral edema #Acute on chronic renal insufficiency #Hypertension #BPH -Leukocytosis likely 2/2 Steroid use, +/- reactive component -Anemia likely from chronic renal diseas -FU Iron studies, retic count, LDH, folic acid. -Erythropoetin level pending -Today's CXR with increase in pulmonary and pleural changes. -blood cultures pending -currently with no signs of infection, but will need further workup. -will follow Visit type - Emergency Visit Emergency Visit: Yes ED Registration Date: 09/17/18 Care time: The patient presented to the Emergency Department on the above date and was hospitalized for further evaluation of their emergent condition. - New Patient This patient is new to me today: No - Critical Care Critical Care patient: No
[2018-10-11] MEDS ORDERED: ALPRAZolam 0.25 MG TABLET PO PRN (07:33)
[2018-10-11] MEDS: CALCIUM ACETATE 667 MG CAPSULE (FP) PO SCH ×3 (08:00→17:15)
[2018-10-11 08:09] LABS: ERYTHROPOIETIN 292.2 mIU/mL (2.6-18.5)
--- NOTE | 2018-10-11 08:39 | PN ---
Progress Note, Physician History of Present Illness: pulmoary alert,oob-chair comfortable,remains hypoxic on nasal cannul 5L - Current Medication List Current Medications: Active Medications Alprazolam (Xanax -) 0.25 mg PO Q12H PRN PRN Reason: ANXIETY Atorvastatin Calcium (Lipitor -) 20 mg PO HS [facility] Calcium Acetate (Phoslo -) 667 mg PO TIDCM [facility] Heparin Sodium (Porcine) (Heparin -) 5,000 unit SQ TID [facility] Insulin Aspart (Novolog Vial Sliding Scale -) 1 vial SQ ACHS [facility]; Protocol Last Admin: 10/11/18 06:18 Dose: 8 units Insulin Detemir (Levemir Vial) 10 units SQ HS [facility] Isosorbide Mononitrate (Imdur -) 60 mg PO DAILY [facility] Labetalol HCl (Normodyne -) 400 mg PO BID [facility] Melatonin (Melatonin) 5 mg PO HS PRN PRN Reason: INSOMNIA Methadone HCl 40 mg/ Methadone (HCl 20 mg) 60 mg PO DAILY@0600 [facility] Methylprednisolone Sodium Succinate (Solu-Medrol -) 40 mg IVPUSH BID [facility] Nifedipine (Procardia Xl -) 90 mg PO BID [facility] Pantoprazole Sodium (Protonix -) 40 mg PO DAILY [facility] - Objective Vital Signs: Vital Signs Temperature 97.8 F 10/11/18 06:48 Pulse Rate 66 10/11/18 06:48 Respiratory Rate 20 10/11/18 06:48 Blood Pressure 144/50 L 10/11/18 06:48 O2 Sat by Pulse Oximetry (%) 99 10/10/18 21:17 Constitutional: Yes: Well Nourished, Calm Eyes: Yes: WNL HENT: Yes: WNL Neck: Yes: WNL Cardiovascular: Yes: Regular Rate and Rhythm, S1, S2 Respiratory: Yes: Diminished, Rales (few bibasilar crackles) Gastrointestinal: Yes: Normal Bowel Sounds, Soft Extremities: Yes: WNL Edema: Yes Labs: Problem List - Problems (1) [id number] kidney injury Code(s): N17.9 - ACUTE KIDNEY FAILURE, UNSPECIFIED; N18.9 - CHRONIC KIDNEY DISEASE, UNSPECIFIED (2) CHF exacerbation Code(s): I50.9 - HEART FAILURE, UNSPECIFIED (3) Chronic renal insufficiency, stage III (moderate) Code(s): N18.3 - CHRONIC KIDNEY DISEASE, STAGE 3 (MODERATE) (4) Diabetes Code(s): E11.9 - TYPE 2 DIABETES MELLITUS WITHOUT COMPLICATIONS (5) History of lung cancer Code(s): Z85.118 - PERSONAL HISTORY OF MALIGNANT NEOPLASM OF BRONCHUS AND LUNG (6) Normocytic anemia Code(s): D64.9 - ANEMIA, UNSPECIFIED (7) Dyspnea Code(s): R06.00 - DYSPNEA, UNSPECIFIED (8) Acute and chronic respiratory failure Code(s): J96.20 - ACUTE AND CHR RESP FAILURE, UNSP W HYPOXIA OR HYPERCAPNIA (9) Pneumonia Code(s): J18.9 - PNEUMONIA, UNSPECIFIED ORGANISM Assessment/Plan A/P Acute Hypoxic Respiratory Failure r/o Acute Pneumonitis/Interstitial Lung Disease r/o Pneumonia Acute on Chronic Diastolic Heart Failure Acute on Chronic Renal Failure requiring HD h/o Lung Ca HTN DM - medrol same dose - inhaled bronchodilators - HD per renal - O2 to keep SpO2 >90% - PO as tolerated - DVT prophylaxis DR MARIE
--- NOTE | 2018-10-11 08:50 | PN ---
Progress Note, Physician Chief Complaint: seen and examined on 4W Eating breakfast, comfortable. Denies CP, SOB TELE: NSR History of Present Illness: BP is well controlled - Current Medication List Current Medications: Active Medications Alprazolam (Xanax -) 0.25 mg PO Q12H PRN PRN Reason: ANXIETY Atorvastatin Calcium (Lipitor -) 20 mg PO HS [facility] Calcium Acetate (Phoslo -) 667 mg PO TIDCM [facility] Heparin Sodium (Porcine) (Heparin -) 5,000 unit SQ TID [facility] Insulin Aspart (Novolog Vial Sliding Scale -) 1 vial SQ ACHS [facility]; Protocol Last Admin: 10/11/18 06:18 Dose: 8 units Insulin Detemir (Levemir Vial) 10 units SQ HS [facility] Isosorbide Mononitrate (Imdur -) 60 mg PO DAILY [facility] Labetalol HCl (Normodyne -) 400 mg PO BID [facility] Melatonin (Melatonin) 5 mg PO HS PRN PRN Reason: INSOMNIA Methadone HCl 40 mg/ Methadone (HCl 20 mg) 60 mg PO DAILY@0600 [facility] Methylprednisolone Sodium Succinate (Solu-Medrol -) 40 mg IVPUSH BID [facility] Nifedipine (Procardia Xl -) 90 mg PO BID [facility] Pantoprazole Sodium (Protonix -) 40 mg PO DAILY [facility] - Objective Vital Signs: Vital Signs Temperature 97.8 F 10/11/18 06:48 Pulse Rate 66 10/11/18 06:48 Respiratory Rate 20 10/11/18 06:48 Blood Pressure 144/50 L 10/11/18 06:48 O2 Sat by Pulse Oximetry (%) 99 10/10/18 21:17 Constitutional: Yes: No Distress, Calm Cardiovascular: Yes: Regular Rate and Rhythm Respiratory: Yes: CTA Bilaterally (no rales.) Gastrointestinal: Yes: Soft Edema: No Neurological: Yes: Alert, Oriented Labs: CBC, BMP 10/10/18 07:03 10/10/18 07:03 INR, PTT INR 1.11 (0.83-1.09) H 09/17/18 12:23 Laboratory Tests 10/10/18 07:03 WBC 18.8 H Hgb 7.8 L Hct 24.2 L Plt Count 213 - ....Imaging EKG: Image Reviewed Assessment/Plan Assessment/Plan EKG: sinus, PVC, no ischemic changes echo 09/2018 nl LV function, mild MAC, tr MR, RVSP 32 mmHg 68M h/o HTN, DM, HLD, PAD s/p femoral stent, prior smoker, R sided lung ca s/p partial resection p/w shortness of breath: Shortness of breath, PNA, acute diastolic CHF exacerbation: - likely multifactorial - h/o lung ca s/p resection, findings concerning for PNA - Pulmonary following, steroid taper - elevated BNP (7K) with congestion on CXR, likely component of HF - echo nl LV function, remainder unremarkable, no pulm HTN noted - Clinically improved w/ HD HTN with htn urgency: - well controlled now on Imdur, Labetalol, Nifedipine BRET on CKD: started on HD -s/p kidney bx -manage per renal HLD: - cont statin PAD: - cont statin - held plavix for kidney bx - restart when able
--- NOTE | 2018-10-11 08:58 | PN ---
Physical Exam: SUBJECTIVE: Patient seen and examined. On 5 L NC. Says he is comfortable but feels a little more dyspneic than yesterday. OBJECTIVE: Vital Signs Period Temp Pulse Resp BP Sys/Bansal Pulse Ox Last 24 Hr 97.4 F-98.1 F 56-71 18-22 140-151/50-76 99-99 GENERAL: The patient is awake, alert, and fully oriented, sitting on chair, eating his breakfast. EYES: extraocular movements intact, sclera anicteric, conjunctiva clear. ENT: oropharynx clear without exudates, moist mucous membranes. No thrush NECK: supple. no lymphadenopathy LUNGS: decreased breath sounds in the R side. rales at the L base HEART: Regular rate and rhythm, no murmurs appreciated ABDOMEN: Soft, nontender, nondistended, ventral hernia, normoactive bowel sounds , no hepatospelnomegaly. EXTREMITIES: 2+ pulses, 1+ edema b/l in LE NEUROLOGICAL: Cranial nerves II through XII grossly intact PSYCH: Normal mood, normal affect. Laboratory Results - last 24 hr 10/10/18 10/10/18 10/10/18 07:03 07:03 12:02 Neutrophils % (Manual) 86.0 H Band Neutrophils % 0.0 Lymphocytes % (Manual) 7.0 L D Monocytes % (Manual) 7 D Eosinophils % (Manual) 0.0 Basophils % (Manual) 0.0 Myelocytes % (Man) 0 Promyelocytes % (Man) 0 Blast Cells % (Manual) 0 Nucleated RBC % 0 Metamyelocytes 0 Hypochromia 1+ Platelet Estimate Normal Polychromasia 1+ Poikilocytosis 1+ Basophilic Stippling 1+ Anisocytosis 0 Microcytosis 0 Macrocytosis 0 Tear Drop Cells 1+ POC Glucometer 260 Iron 47 TIBC 231 L Iron Saturation 20 Unsaturated IBC 184 Erythropoietin 292.2 H 10/10/18 10/10/18 10/11/18 16:36 22:25 06:17 Neutrophils % (Manual) Band Neutrophils % Lymphocytes % (Manual) Monocytes % (Manual) Eosinophils % (Manual) Basophils % (Manual) Myelocytes % (Man) Promyelocytes % (Man) Blast Cells % (Manual) Nucleated RBC % Metamyelocytes Hypochromia Platelet Estimate Polychromasia Poikilocytosis Basophilic Stippling Anisocytosis Microcytosis Macrocytosis Tear Drop Cells POC Glucometer 382 369 307 Iron TIBC Iron Saturation Unsaturated IBC Erythropoietin Active Medications Generic Name Dose Route Start Last Admin Trade Name Freq PRN Reason Stop Dose Admin Alprazolam 0.25 mg 10/11/18 07:33 Xanax - PO Q12H PRN ANXIETY Atorvastatin Calcium 20 mg 10/11/18 22:00 Lipitor - PO HS [facility] Calcium Acetate 667 mg 10/11/18 08:00 Phoslo - PO TIDCM [facility] Heparin Sodium (Porcine) 5,000 unit 10/11/18 14:00 Heparin - SQ TID [facility] Insulin Aspart 1 vial 10/09/18 21:37 10/11/18 06:18 Novolog Vial Sliding Scale - SQ 8 units ACHS [facility] Administration Protocol Insulin Detemir 10 units 10/11/18 22:00 Levemir Vial SQ HS [facility] Isosorbide Mononitrate 60 mg 10/11/18 10:00 Imdur - PO DAILY [facility] Labetalol HCl 400 mg 10/11/18 10:00 Normodyne - PO BID [facility] Melatonin 5 mg 10/11/18 22:00 Melatonin PO HS PRN INSOMNIA Methadone HCl 40 mg/ Methadone 60 mg 10/12/18 06:00 HCl 20 mg PO DAILY@0600 [facility] Methylprednisolone Sodium Succinate 40 mg 10/11/18 10:00 Solu-Medrol - IVPUSH BID [facility] Nifedipine 90 mg 10/11/18 10:00 Procardia Xl - PO BID [facility] Pantoprazole Sodium 40 mg 10/11/18 10:00 Protonix - PO DAILY [facility] ASSESSMENT/PLAN: #Anemia #Leukocytosis #Acute shortness of breath form diastolic HF + PNA #Peripheral edema #Acute on chronic renal insufficiency #Hypertension #BPH -Leukocytosis likely 2/2 Steroid use, +/- reactive component. -Anemia likely from chronic renal disease. CBC w/ diff with no signs of myeloproliferative neoplasms. -Iron studies wnl except for mildly low tibc -Erythropoetin level pending -blood cultures negative after 24 hours -currently with no signs of infection. afebrile. FU ID reccs -will follow Visit type - Emergency Visit Emergency Visit: Yes ED Registration Date: 09/17/18 Care time: The patient presented to the Emergency Department on the above date and was hospitalized for further evaluation of their emergent condition. - New Patient This patient is new to me today: Yes Date on this admission: 10/11/18 - Critical Care Critical Care patient: No
[2018-10-11 10:13] LABS: BASO % 0.2 % (0-2.0); EOS % 0.1 % (0-4.5); HEMATOCRIT 23.6 % (35.4-49); HEMOGLOBIN 7.6 GM/dL (11.7-16.9); LYMPH % 3.9 % (8-40); MCH 28.3 pg (25.7-33.7); MCHC 32.3 g/dl (32.0-35.9); MEAN CELL VOLUME 87.9 fl (80-96); MEAN PLT VOLUME 8.6 fl (7.5-11.1); MONO % 4.4 % (3.8-10.2); NEUT % 91.4 % (42.8-82.8); RBC 2.69 M/mm3 (4.00-5.60); RDW 15.3 % (11.9-15.9); WHITE BLOOD COUNT 16.7 K/mm3 (4.0-10.0)
--- NOTE | 2018-10-11 10:14 | PN ---
Progress Note (short form) - Note Progress Note: events noted awake and alert feeling well no complaints Vital Signs - 24 hr 10/10/18 10/10/18 10/10/18 15:42 17:00 21:00 Temperature 97.8 F 97.4 F L Pulse Rate 58 L 56 L Respiratory 22 H 20 Rate Blood Pressure 143/76 140/57 L O2 Sat by Pulse 99 Oximetry (%) 10/10/18 10/11/18 10/11/18 21:17 01:49 06:48 Temperature 98 F 98.1 F 97.8 F Pulse Rate 58 L 71 66 Respiratory 18 18 20 Rate Blood Pressure 147/67 151/70 144/50 L O2 Sat by Pulse 99 Oximetry (%) Current Medications Generic Name Dose Route Start Last Admin Trade Name Freq PRN Reason Stop Dose Admin Alprazolam 0.25 mg 10/11/18 07:33 Xanax - PO Q12H PRN ANXIETY Atorvastatin Calcium 20 mg 10/11/18 22:00 Lipitor - PO HS [facility] Calcium Acetate 667 mg 10/11/18 08:00 Phoslo - PO TIDCM [facility] Heparin Sodium (Porcine) 5,000 unit 10/11/18 14:00 Heparin - SQ TID [facility] Insulin Aspart 1 vial 10/09/18 21:37 10/11/18 06:18 Novolog Vial Sliding Scale - SQ 8 units ACHS [facility] Administration Protocol Insulin Detemir 10 units 10/11/18 22:00 Levemir Vial SQ HS [facility] Isosorbide Mononitrate 60 mg 10/11/18 10:00 Imdur - PO DAILY [facility] Labetalol HCl 400 mg 10/11/18 10:00 Normodyne - PO BID [facility] Melatonin 5 mg 10/11/18 22:00 Melatonin PO HS PRN INSOMNIA Methadone HCl 40 mg/ Methadone 60 mg 10/12/18 06:00 HCl 20 mg PO DAILY@0600 [facility] Methylprednisolone Sodium Succinate 40 mg 10/11/18 10:00 Solu-Medrol - IVPUSH BID [facility] Nifedipine 90 mg 10/11/18 10:00 Procardia Xl - PO BID [facility] Pantoprazole Sodium 40 mg 10/11/18 10:00 Protonix - PO DAILY [facility] Laboratory Results - last 24 hr 10/10/18 10/10/18 10/10/18 07:03 07:03 12:02 Neutrophils % (Manual) 86.0 H Band Neutrophils % 0.0 Lymphocytes % (Manual) 7.0 L D Monocytes % (Manual) 7 D Eosinophils % (Manual) 0.0 Basophils % (Manual) 0.0 Myelocytes % (Man) 0 Promyelocytes % (Man) 0 Blast Cells % (Manual) 0 Nucleated RBC % 0 Metamyelocytes 0 Hypochromia 1+ Platelet Estimate Normal Polychromasia 1+ Poikilocytosis 1+ Basophilic Stippling 1+ Anisocytosis 0 Microcytosis 0 Macrocytosis 0 Tear Drop Cells 1+ POC Glucometer 260 Iron 47 TIBC 231 L Iron Saturation 20 Unsaturated IBC 184 Erythropoietin 292.2 H 10/10/18 10/10/18 10/11/18 16:36 22:25 06:17 Neutrophils % (Manual) Band Neutrophils % Lymphocytes % (Manual) Monocytes % (Manual) Eosinophils % (Manual) Basophils % (Manual) Myelocytes % (Man) Promyelocytes % (Man) Blast Cells % (Manual) Nucleated RBC % Metamyelocytes Hypochromia Platelet Estimate Polychromasia Poikilocytosis Basophilic Stippling Anisocytosis Microcytosis Macrocytosis Tear Drop Cells POC Glucometer 382 369 307 Iron TIBC Iron Saturation Unsaturated IBC Erythropoietin S1 s2 RRR Lungs decreased breath sounds abd- soft, NT edema decreased PLAN CHF--on HD leucocytosis-- blood cultures , ua and urine culture-- negative may be elevate due to solumedrol off antibiotics on solumedrol Hep C ab positive, RNA PCR NOT DETECTED Dialysis per renal -- will need access increase levemir -- sugars elevated due to solumedrol Problem List - Problems (1) BRET (acute kidney injury) Code(s): N17.9 - ACUTE KIDNEY FAILURE, UNSPECIFIED (2) Acute and chronic respiratory failure Code(s): J96.20 - ACUTE AND CHR RESP FAILURE, UNSP W HYPOXIA OR HYPERCAPNIA (3) Vcbmi-dy-wsfrmtg kidney injury Code(s): N17.9 - ACUTE KIDNEY FAILURE, UNSPECIFIED; N18.9 - CHRONIC KIDNEY DISEASE, UNSPECIFIED (4) CHF exacerbation Code(s): I50.9 - HEART FAILURE, UNSPECIFIED (5) Diabetes Code(s): E11.9 - TYPE 2 DIABETES MELLITUS WITHOUT COMPLICATIONS
[2018-10-11 10:37] LABS: ALBUMIN 2.4 g/dl (3.4-5.0); BILIRUBIN,TOTAL 0.3 mg/dL (0.2-1); BLOOD UREA NITROGEN 79.4 mg/dL (7-18); CALCIUM 7.8 mg/dL (8.5-10.1); POTASSIUM 4.5 mmol/L (3.5-5.1); TOT PROT 5.5 g/dl (6.4-8.2)
[2018-10-11] MEDS ORDERED: SODIUM CHLORIDE 250 ML IV PRN ×2 (10:56→10:57)
[2018-10-11] MEDS ORDERED: EPOETIN ALFA 20,000 UNIT/1 ML VIAL IVPUSH ONE (11:00)
[2018-10-11] MEDS ORDERED: ALBUMIN HUMAN 25% 12.5 GM/50 ML VIAL IVPB SCH (11:00)
--- NOTE | 2018-10-11 11:00 | PN ---
Progress Note (short form) - Note Progress Note: Renal follow up for BRET Pt seen and examined at the bedside on 4L NC no acute complaints making urine leg swelling worsening no cp, abd pain, fever or chills Vital Signs Temperature 97.8 F 10/11/18 06:48 Pulse Rate 66 10/11/18 06:48 Respiratory Rate 20 10/11/18 06:48 Blood Pressure 144/50 L 10/11/18 06:48 O2 Sat by Pulse Oximetry (%) 99 10/10/18 21:17 Intake & Output 10/08/18 10/09/18 10/10/18 10/11/18 23:59 23:59 23:59 23:59 Intake Total 170 450 550 Output Total 550 600 400 350 Balance -380 -150 150 -350 Weight 83.688 kg 77.111 kg NAD RRR, no M/R BS improved, CTA 1+ edema in LE CBC, BMP 10/11/18 09:28 Current Medications Albumin Human (Albumin Human 25%) 12.5 gm IVPB Q30M [facility] Alprazolam (Xanax -) 0.25 mg PO Q12H PRN PRN Reason: ANXIETY Atorvastatin Calcium (Lipitor -) 20 mg PO HS [facility] Calcium Acetate (Phoslo -) 667 mg PO TIDCM [facility] Epoetin Guru (Procrit -) 20,000 unit IVPUSH ONCE ONE Stop: 10/11/18 11:01 Heparin Sodium (Porcine) (Heparin -) 5,000 unit SQ TID [facility] Sodium Chloride (Normal Saline -) 250 mls @ 3,000 mls/hr IV PRN PRN PRN Reason: Hypotension during Dialysis Stop: 10/12/18 10:55 Sodium Chloride (Normal Saline -) 250 mls @ 3,000 mls/hr IV PRN PRN PRN Reason: Hypotension during Dialysis Stop: 10/12/18 10:56 Insulin Aspart (Novolog Vial Sliding Scale -) 1 vial SQ ACHS [facility]; Protocol Last Admin: 10/11/18 06:18 Dose: 8 units Insulin Detemir (Levemir Vial) 12 units SQ HS [facility] Isosorbide Mononitrate (Imdur -) 60 mg PO DAILY [facility] Labetalol HCl (Normodyne -) 400 mg PO BID [facility] Melatonin (Melatonin) 5 mg PO HS PRN PRN Reason: INSOMNIA Methadone HCl 40 mg/ Methadone (HCl 20 mg) 60 mg PO DAILY@0600 [facility] Methylprednisolone Sodium Succinate (Solu-Medrol -) 40 mg IVPUSH BID [facility] Nifedipine (Procardia Xl -) 90 mg PO BID [facility] Pantoprazole Sodium (Protonix -) 40 mg PO DAILY [facility] 68 year old gentleman with hx of of hypertension, DM on insulin, PVD s/ p Le stents, BPH, Hx of Lung cancer s/p resection who presented with SOB and noted to have BUN/Cr of 79/3.2. 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 Tubular atrophy and intersitial fibrosis, moderate. Proxiamal tubular degenerative and regenerative changes. Arteriosclerosis, moderate to severe. UPCR is 3.2, CHICHI negative, ANCA is negative, anti-histone ab is moderate positive would avoid any further hydralazine use given positive anti-histone Ab Renal imaging showed no obstruction will need further imaging of splenic lesion once renal failure improves Dariusz Iniguez DO
[2018-10-11 11:31] LABS: PLATELET COUNT 220 K/MM3 (134-434)
[2018-10-11 13:08] LABS: ANISOCYTOSIS 2+; MACROCYTOSIS 0; OVALOCYTE 1+; PLATELET ESTIMATE NORMAL
[2018-10-11] MEDS: ISOSORBIDE MONONITRATE 60 MG TAB.SR.24H (FP) PO SCH (15:58)
[2018-10-11] MEDS: LABETALOL HCL 200 MG TABLET (FP) PO SCH ×2 (15:59→22:33)
[2018-10-11] MEDS: NIFEdipine E.R. 90 MG TABLET (FP) PO SCH ×2 (15:59→22:34)
[2018-10-11] MEDS: PANTOPRAZOLE 40 MG TABLET (FP) PO SCH (16:00)
[2018-10-11] MEDS: methylPREDNISolone NA SUCC 40 MG/1 ML VIAL IVPUSH SCH ×2 (16:00→22:32)
--- NOTE | 2018-10-11 19:01 | PN ---
Progress Note (short form) - Note Progress Note: Patient seen and examined Feels well. Denies any complaints AFVSS Lungs: Clear to P&A Abd: Soft, Normal bowel sounds, No organomegaly Ext:No significant edema Labs/Meds reviewed A/P 68 y/o patient with Leukocytosis Previously normal WBC in 08/2017. Anemia, and normal platelets with no significant early WBC forms, eosinophils, , basophils, thrombocytosis all speak against a myeloproliferative neoplasm. Pneumonia, steroids, reactive changes most likely. Anemia- likely acute and chronic disease with renal insufficiency.
[2018-10-11] MEDS ORDERED: MELATONIN 5 MG TABLETS PO PRN (22:00)
[2018-10-11] MEDS ORDERED: INSULIN (LEVEMIR) 100 UNITS/ML UNITS SQ SCH (22:00)
[2018-10-11] MEDS: ATORVASTATIN CA 20 MG TABLET (FP) PO SCH (22:33)
[2018-10-11] MEDS: INSULIN (LEVEMIR) 100 UNITS/ML UNITS SQ SCH (22:34)
[2018-10-12 06:12] LABS: BASO % 0.3 % (0-2.0); HEMATOCRIT 25.1 % (35.4-49); HEMOGLOBIN 8.2 GM/dL (11.7-16.9); LYMPH % 3.1 % (8-40); MCH 28.9 pg (25.7-33.7); MCHC 32.7 g/dl (32.0-35.9); MEAN CELL VOLUME 88.5 fl (80-96); MEAN PLT VOLUME 8.6 fl (7.5-11.1); MONO % 2.7 % (3.8-10.2); NEUT % 93.9 % (42.8-82.8); PLATELET COUNT 207 K/MM3 (134-434); RBC 2.84 M/mm3 (4.00-5.60); RDW 15.1 % (11.9-15.9); WHITE BLOOD COUNT 16.1 K/mm3 (4.0-10.0)
[2018-10-12] MEDS ORDERED: METHADONE HCL 40 MG DISPERSABLE TABLET ONE (06:21)
[2018-10-12] MEDS ORDERED: METHADONE HCL 10 MG TABLET ONE (06:22)
[2018-10-12 06:48] LABS: BLOOD UREA NITROGEN 49.7 mg/dL (7-18); CREATININE 2.8 mg/dL (0.55-1.3); POTASSIUM 4.4 mmol/L (3.5-5.1)
[2018-10-12 06:49] LABS: ALBUMIN 2.4 g/dl (3.4-5.0); BILIRUBIN,TOTAL 0.3 mg/dL (0.2-1); CALCIUM 7.7 mg/dL (8.5-10.1); TOT PROT 5.8 g/dl (6.4-8.2)
[2018-10-12] MEDS: METHADONE 40 MG, METHADONE 20 MG PO SCH (07:02)
[2018-10-12] MEDS: HEPARIN NA (PORCINE) 5,000 UNITS/ML 1ML VIAL SQ SCH ×3 (07:02→22:19)
[2018-10-12] MEDS: INSULIN SLIDING SCALE (NOVOLOG) 1 VIAL SQ SCH ×4 (07:02→22:18)
[2018-10-12] MEDS ORDERED: SODIUM CHLORIDE 250 ML IV PRN (07:39)
[2018-10-12] MEDS ORDERED: INSULIN (NOVOLOG) ASPART 100 UNITS/ML 10ML VIAL ONE (07:43)
[2018-10-12] MEDS ORDERED: INSULIN (LEVEMIR) 100 UNITS/ML UNITS SQ ONE (07:43)
[2018-10-12] MEDS ORDERED: INSULIN (NOVOLOG MIX 70/30) 100 UNITS/ML MDV SQ ONE (07:44)
--- NOTE | 2018-10-12 08:33 | PN ---
Progress Note, Physician Chief Complaint: Had HD/UF again yesterday No complaints today- denies CP or SOB TELE: NSR History of Present Illness: BP well controlled - Current Medication List Current Medications: Active Medications Albumin Human (Albumin Human 25%) 12.[address] [facility] Alprazolam (Xanax -) 0.25 mg PO Q12H PRN PRN Reason: ANXIETY Atorvastatin Calcium (Lipitor -) [address] [facility] Last Admin: 10/11/18 22:33 Dose: 20 mg Calcium Acetate (Phoslo -) [address] [facility] Last Admin: 10/11/18 17:15 Dose: 667 mg Heparin Sodium (Porcine) (Heparin -) 5,[address] [facility] Last Admin: 10/12/18 07:02 Dose: 5,000 unit Sodium Chloride (Normal Saline -) 250 mls @ 3,000 mls/hr IV PRN PRN PRN Reason: Hypotension during Dialysis Stop: 10/12/18 10:55 Sodium Chloride (Normal Saline -) 250 mls @ 3,000 mls/hr IV PRN PRN PRN Reason: Hypotension during Dialysis Stop: 10/12/18 10:56 Sodium Chloride (Normal Saline -) 250 mls @ 3,000 mls/hr IV PRN PRN PRN Reason: Hypotension during Dialysis Stop: 10/13/18 07:40 Insulin Aspart (Novolog Vial Sliding Scale -) 1 vial SQ [facility]; Protocol Last Admin: 10/12/18 07:02 Dose: 6 units Insulin Detemir (Levemir Vial) [address] [facility] Last Admin: 10/11/18 22:34 Dose: 12 units Isosorbide Mononitrate (Imdur -) [address] [facility] Last Admin: 10/11/18 15:58 Dose: 60 mg Labetalol HCl (Normodyne -) [address] [facility] Last Admin: 10/11/18 22:33 Dose: 400 mg Melatonin (Melatonin) 5 mg PO HS PRN PRN Reason: INSOMNIA Methadone HCl 40 mg/ Methadone (HCl 20 mg) 60 mg PO DAILY@0600 [facility] Last Admin: 10/12/18 07:02 Dose: 60 mg Methylprednisolone Sodium Succinate (Solu-Medrol -) [address] [facility] Last Admin: 10/11/18 22:32 Dose: 40 mg Nifedipine (Procardia Xl -) [address] [facility] Last Admin: 10/11/18 22:34 Dose: 90 mg Pantoprazole Sodium (Protonix -) [address] [facility] Last Admin: 10/11/18 16:00 Dose: 40 mg - Objective Vital Signs: Vital Signs Temperature 97.1 F L 10/12/18 05:33 Pulse Rate 67 10/12/18 05:33 Respiratory Rate 20 10/12/18 05:33 Blood Pressure 146/65 10/12/18 05:33 O2 Sat by Pulse Oximetry (%) 92 L 10/11/18 22:00 Constitutional: Yes: No Distress Cardiovascular: Yes: Regular Rate and Rhythm Respiratory: Yes: CTA Bilaterally (no wheezing or rales) Gastrointestinal: Yes: Soft Edema: Yes Edema: LLE: 1+, RLE: 1+ Neurological: Yes: Alert, Oriented Labs: CBC, BMP 10/12/18 05:40 10/12/18 05:40 INR, PTT INR 1.11 (0.83-1.09) H 09/17/18 12:23 Laboratory Tests 10/12/18 10/12/18 05:40 05:40 WBC 16.1 H Hgb 8.2 L Hct 25.1 L Plt Count 207 Sodium 135 L Potassium 4.4 BUN 49.7 H Creatinine 2.8 H - ....Imaging EKG: Image Reviewed Assessment/Plan Assessment/Plan EKG: sinus, PVC, no ischemic changes echo 09/2018 nl LV function, mild MAC, tr MR, RVSP 32 mmHg 68M h/o HTN, DM, HLD, PAD s/p femoral stent, prior smoker, R sided lung ca s/p partial resection p/w shortness of breath: Shortness of breath, PNA, acute diastolic CHF exacerbation: - likely multifactorial - h/o lung ca s/p resection, findings concerning for PNA - Pulmonary following, steroid taper - elevated BNP (7K) with congestion on CXR, likely component of HF - echo nl LV function, remainder unremarkable, no pulm HTN noted - Clinically improved w/ HD/UF HTN with htn urgency: - well controlled now on Imdur, Labetalol, Nifedipine BRET on CKD: started on HD -s/p kidney bx -manage per renal HLD: - cont statin PAD: - cont statin - held plavix for kidney bx - restart when able
[2018-10-12] MEDS ORDERED: PT OWN MED DRAWER 7, Y5N ONE (08:55)
--- NOTE | 2018-10-12 09:29 | PN ---
Progress Note (short form) - Note Progress Note: PULMONARY AWAKE/ALERT TOLERATING HD WELL BREATHING MUCH IMPROVED VSS Constitutional: Yes: Well Nourished, Calm Eyes: Yes: WNL HENT: Yes: WNL Neck: Yes: WNL Cardiovascular: Yes: Regular Rate and Rhythm, S1, S2 Respiratory: Yes: Diminished, Rales (few bibasilar crackles) Gastrointestinal: Yes: Normal Bowel Sounds, Soft Extremities: Yes: WNL Edema: Yes Labs: Problem List - Problems (1) [id number] kidney injury Code(s): N17.9 - ACUTE KIDNEY FAILURE, UNSPECIFIED; N18.9 - CHRONIC KIDNEY DISEASE, UNSPECIFIED (2) CHF exacerbation Code(s): I50.9 - HEART FAILURE, UNSPECIFIED (3) Chronic renal insufficiency, stage III (moderate) Code(s): N18.3 - CHRONIC KIDNEY DISEASE, STAGE 3 (MODERATE) (4) Diabetes Code(s): E11.9 - TYPE 2 DIABETES MELLITUS WITHOUT COMPLICATIONS (5) History of lung cancer Code(s): Z85.118 - PERSONAL HISTORY OF MALIGNANT NEOPLASM OF BRONCHUS AND LUNG (6) Normocytic anemia Code(s): D64.9 - ANEMIA, UNSPECIFIED (7) Dyspnea Code(s): R06.00 - DYSPNEA, UNSPECIFIED (8) Acute and chronic respiratory failure Code(s): J96.20 - ACUTE AND CHR RESP FAILURE, UNSP W HYPOXIA OR HYPERCAPNIA (9) Pneumonia Code(s): J18.9 - PNEUMONIA, UNSPECIFIED ORGANISM Assessment/Plan A/P Acute Hypoxic Respiratory Failure resolved Acute on Chronic Diastolic Heart Failure Acute on Chronic Renal Failure requiring HD h/o Lung Ca HTN DM - can begin tapering medrol - inhaled bronchodilators - HD per renal - O2 to keep SpO2 >90% - PO as tolerated - DVT darleen AWAD MD
[2018-10-12] MEDS: CALCIUM ACETATE 667 MG CAPSULE (FP) PO SCH ×4 (09:37→17:57)
[2018-10-12] MEDS: methylPREDNISolone NA SUCC 40 MG/1 ML VIAL IVPUSH SCH ×3 (09:38→22:19)
[2018-10-12] MEDS: ISOSORBIDE MONONITRATE 60 MG TAB.SR.24H (FP) PO SCH ×2 (09:38→15:47)
[2018-10-12] MEDS: LABETALOL HCL 200 MG TABLET (FP) PO SCH ×2 (09:38→22:17)
[2018-10-12] MEDS: NIFEdipine E.R. 90 MG TABLET (FP) PO SCH ×3 (09:38→22:18)
[2018-10-12] MEDS: PANTOPRAZOLE 40 MG TABLET (FP) PO SCH ×2 (09:38→15:47)
[2018-10-12 10:15] LABS: ANISOCYTOSIS 2+; MACROCYTOSIS 1+; OVALOCYTE 1+; PLATELET ESTIMATE NORMAL; TEAR DROP CELLS 1+
--- NOTE | 2018-10-12 12:28 | PN ---
Progress Note (short form) - Note Progress Note: Renal follow up for BRET Pt seen and examined during dialysis BP stable, tolerated 3L UF catheter with good flow no acute comlaints denies any overt sob, cp, abd pain sitll has MEHTA. feels weak still Vital Signs Temperature 98.1 F 10/12/18 08:40 Pulse Rate 52 L 10/12/18 10:15 Respiratory Rate 18 10/12/18 10:15 Blood Pressure 108/63 10/12/18 10:15 O2 Sat by Pulse Oximetry (%) 92 L 10/11/18 22:00 Intake & Output 10/09/18 10/10/18 10/11/18 10/12/18 23:59 23:59 23:59 23:59 Intake Total 450 550 730 Output Total 600 400 350 300 Balance -150 150 380 -300 Weight 83.688 kg 77.111 kg 74.661 kg NAD RRR, no M/R BS improved, CTA 1+ edema in LE CBC, BMP 10/12/18 05:40 10/12/18 05:40 Current Medications Albumin Human (Albumin Human 25%) 12.5 gm IVPB Q30M [facility] Alprazolam (Xanax -) 0.25 mg PO Q12H PRN PRN Reason: ANXIETY Atorvastatin Calcium (Lipitor -) 20 mg PO HS [facility] Last Admin: 10/11/18 22:33 Dose: 20 mg Calcium Acetate (Phoslo -) 667 mg PO TIDCM [facility] Last Admin: 10/12/18 09:37 Dose: Not Given Heparin Sodium (Porcine) (Heparin -) 5,000 unit SQ TID [facility] Last Admin: 10/12/18 07:02 Dose: 5,000 unit Sodium Chloride (Normal Saline -) 250 mls @ 3,000 mls/hr IV PRN PRN PRN Reason: Hypotension during Dialysis Stop: 10/13/18 07:40 Insulin Aspart (Novolog Vial Sliding Scale -) 1 vial SQ [facility]; Protocol Last Admin: 10/12/18 07:02 Dose: 6 units Insulin Detemir (Levemir Vial) 12 units SQ HS [facility] Last Admin: 10/11/18 22:34 Dose: 12 units Isosorbide Mononitrate (Imdur -) 60 mg PO DAILY [facility] Last Admin: 10/12/18 09:38 Dose: Not Given Labetalol HCl (Normodyne -) 400 mg PO BID [facility] Last Admin: 10/12/18 09:38 Dose: Not Given Melatonin (Melatonin) 5 mg PO HS PRN PRN Reason: INSOMNIA Methadone HCl 40 mg/ Methadone (HCl 20 mg) 60 mg PO DAILY@0600 [facility] Last Admin: 10/12/18 07:02 Dose: 60 mg Methylprednisolone Sodium Succinate (Solu-Medrol -) 40 mg IVPUSH BID [facility] Last Admin: 10/12/18 09:38 Dose: Not Given Nifedipine (Procardia Xl -) 90 mg PO BID [facility] Last Admin: 10/12/18 09:38 Dose: Not Given Pantoprazole Sodium (Protonix -) 40 mg PO DAILY [facility] Last Admin: 10/12/18 09:38 Dose: Not Given 68 year old gentleman with hx of of hypertension, DM on insulin, PVD s/ p Le stents, BPH, Hx of Lung cancer s/p resection who presented with SOB and noted to have BUN/Cr of 79/3.2. 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 Tubular atrophy and intersitial fibrosis, moderate. Proxiamal tubular degenerative and regenerative changes. Arteriosclerosis, moderate to severe. UPCR is 3.2, CHICHI negative, ANCA is negative, anti-histone ab is moderate positive would avoid any further hydrazine use given positive anti-histone Ab Renal imaging showed no obstruction start torsemide 80mg daily starting tomorrow next planned dialysis is Monday. Dariusz Iniguez DO
--- NOTE | 2018-10-12 12:35 | PN ---
Progress Note (short form) - Note Progress Note: events noted awake and alert undergoing dialysis feels weak Vital Signs - 24 hr 10/11/18 10/11/18 10/11/18 13:05 13:35 14:05 Temperature Pulse Rate 54 L 53 L 54 L Respiratory 18 18 18 Rate Blood Pressure 144/77 147/74 143/71 O2 Sat by Pulse Oximetry (%) 10/11/18 10/11/18 10/11/18 14:35 15:00 15:05 Temperature 97.8 F Pulse Rate 54 L 61 60 Respiratory 18 18 18 Rate Blood Pressure 144/69 150/68 148/73 O2 Sat by Pulse Oximetry (%) 10/11/18 10/11/18 10/11/18 15:15 17:01 21:00 Temperature 97.8 F 99.0 F Pulse Rate 47 L 60 Respiratory 18 20 Rate Blood Pressure 167/82 110/71 O2 Sat by Pulse 92 L Oximetry (%) 10/11/18 10/12/18 10/12/18 22:00 02:00 05:33 Temperature 99 F 97.9 F 97.1 F L Pulse Rate 60 67 67 Respiratory 22 H 20 20 Rate Blood Pressure 132/50 L 139/56 L 146/65 O2 Sat by Pulse 92 L Oximetry (%) 10/12/18 10/12/18 10/12/18 08:40 08:45 09:15 Temperature 98.1 F Pulse Rate 60 55 L 54 L Respiratory 18 18 18 Rate Blood Pressure 135/67 133/67 110/61 O2 Sat by Pulse Oximetry (%) 10/12/18 10/12/18 09:45 10:15 Temperature Pulse Rate 54 L 52 L Respiratory 18 18 Rate Blood Pressure 122/62 108/63 O2 Sat by Pulse Oximetry (%) Current Medications Generic Name Dose Route Start Last Admin Trade Name Freq PRN Reason Stop Dose Admin Albumin Human 12.5 gm 10/11/18 11:00 Albumin Human 25% IVPB Q30M [facility] Alprazolam 0.25 mg 10/11/18 07:33 Xanax - PO Q12H PRN ANXIETY Atorvastatin Calcium 20 mg 10/11/18 22:00 10/11/18 22:33 Lipitor - PO 20 mg HS [facility] Administration Calcium Acetate 667 mg 10/11/18 08:00 10/12/18 09:37 Phoslo - PO Not Given TIDCM [facility] Heparin Sodium (Porcine) 5,000 unit 10/11/18 14:00 10/12/18 07:02 Heparin - SQ 5,000 unit TID [facility] Administration Sodium Chloride 250 mls @ 3,000 mls/hr 10/12/18 07:39 Normal Saline - IV 10/13/18 07:40 PRN PRN Hypotension during Dialysis Insulin Aspart 1 vial 10/09/18 21:37 10/12/18 07:02 Novolog Vial Sliding Scale - SQ 6 units ACHS [facility] Administration Protocol Insulin Detemir 12 units 10/11/18 22:00 10/11/18 22:34 Levemir Vial SQ 12 units HS [facility] Administration Isosorbide Mononitrate 60 mg 10/11/18 10:00 10/12/18 09:38 Imdur - PO Not Given DAILY [facility] Labetalol HCl 400 mg 10/11/18 10:00 10/12/18 09:38 Normodyne - PO Not Given BID [facility] Melatonin 5 mg 10/11/18 22:00 Melatonin PO HS PRN INSOMNIA Methadone HCl 40 mg/ Methadone 60 mg 10/12/18 06:00 10/12/18 07:02 HCl 20 mg PO 60 mg DAILY@0600 [facility] Administration Methylprednisolone Sodium Succinate 40 mg 10/11/18 10:00 10/12/18 09:38 Solu-Medrol - IVPUSH Not Given BID [facility] Nifedipine 90 mg 10/11/18 10:00 10/12/18 09:38 Procardia Xl - PO Not Given BID [facility] Pantoprazole Sodium 40 mg 10/11/18 10:00 10/12/18 09:38 Protonix - PO Not Given DAILY [facility] Torsemide 80 mg 10/13/18 10:00 Demadex - PO DAILY [facility] Laboratory Results - last 24 hr 10/11/18 10/11/18 10/11/18 09:28 12:45 16:26 WBC RBC Hgb Hct MCV MCH MCHC RDW Plt Count MPV Absolute Neuts (auto) Neutrophils % Neutrophils % (Manual) 90.0 H Band Neutrophils % 2.0 Lymphocytes % Lymphocytes % (Manual) 2.0 L D Monocytes % Monocytes % (Manual) 6 Eosinophils % Eosinophils % (Manual) 0.0 Basophils % Basophils % (Manual) 0.0 Myelocytes % (Man) 0 Promyelocytes % (Man) 0 Blast Cells % (Manual) 0 Nucleated RBC % Metamyelocytes 0 Hypochromia 0 Platelet Estimate Normal Platelet Comment Present Polychromasia 2+ Poikilocytosis 1+ Anisocytosis 2+ Microcytosis 2+ Macrocytosis 0 Spherocytes 1+ Tear Drop Cells Ovalocytes 1+ [place] Cells 1+ Acanthocytes (Spur) 1+ Sodium Potassium Chloride Carbon Dioxide Anion Gap BUN Creatinine Est GFR (CKD-EPI)AfAm Est GFR (CKD-EPI)NonAf POC Glucometer 198 222 Random Glucose Calcium Total Bilirubin AST ALT Alkaline Phosphatase Total Protein Albumin 10/11/18 10/12/18 10/12/18 22:30 05:35 05:40 WBC 16.1 H RBC 2.84 L Hgb 8.2 L Hct 25.1 L MCV 88.5 MCH 28.9 MCHC 32.7 RDW 15.1 Plt Count 207 MPV 8.6 Absolute Neuts (auto) 15.1 H Neutrophils % 93.9 H Neutrophils % (Manual) 95.0 H Band Neutrophils % 1.0 Lymphocytes % 3.1 L D Lymphocytes % (Manual) 3.0 L D Monocytes % 2.7 L Monocytes % (Manual) 1 L D Eosinophils % 0.0 D Eosinophils % (Manual) 0.0 Basophils % 0.3 Basophils % (Manual) 0.0 Myelocytes % (Man) 0 Promyelocytes % (Man) 0 Blast Cells % (Manual) 0 Nucleated RBC % 1 H Metamyelocytes 0 Hypochromia 0 Platelet Estimate Normal Platelet Comment Present Polychromasia 1+ Poikilocytosis 1+ Anisocytosis 2+ Microcytosis 1+ Macrocytosis 1+ Spherocytes 1+ Tear Drop Cells 1+ Ovalocytes 1+ [place] Cells Acanthocytes (Spur) 1+ Sodium Potassium Chloride Carbon Dioxide Anion Gap BUN Creatinine Est GFR (CKD-EPI)AfAm Est GFR (CKD-EPI)NonAf POC Glucometer 400 297 Random Glucose Calcium Total Bilirubin AST ALT Alkaline Phosphatase Total Protein Albumin 10/12/18 10/12/18 05:40 11:26 WBC RBC Hgb Hct MCV MCH MCHC RDW Plt Count MPV Absolute Neuts (auto) Neutrophils % Neutrophils % (Manual) Band Neutrophils % Lymphocytes % Lymphocytes % (Manual) Monocytes % Monocytes % (Manual) Eosinophils % Eosinophils % (Manual) Basophils % Basophils % (Manual) Myelocytes % (Man) Promyelocytes % (Man) Blast Cells % (Manual) Nucleated RBC % Metamyelocytes Hypochromia Platelet Estimate Platelet Comment Polychromasia Poikilocytosis Anisocytosis Microcytosis Macrocytosis Spherocytes Tear Drop Cells Ovalocytes [place] Cells Acanthocytes (Spur) Sodium 135 L Potassium 4.4 Chloride 97 L Carbon Dioxide 29 Anion Gap 9 BUN 49.7 H Creatinine 2.8 H Est GFR (CKD-EPI)AfAm 25.34 Est GFR (CKD-EPI)NonAf 21.86 POC Glucometer 159 Random Glucose 302 H* Calcium 7.7 L Total Bilirubin 0.3 AST 19 ALT 47 Alkaline Phosphatase 127 H Total Protein 5.8 L Albumin 2.4 L S1 s2 RRR Lungs decreased breath sounds abd- soft, NT edema decreased PLAN CHF--on HD leucocytosis-- blood cultures , ua and urine culture-- negative may be elevate due to solumedrol off antibiotics on solumedrol Hep C ab positive, RNA PCR NOT DETECTED Dialysis per renal -- will need access increase levemir -- sugars elevated due to solumedrol taper solumedrol will need STR spoke with pillowcase maker nelson on Monday Problem List - Problems (1) BRET (acute kidney injury) Code(s): N17.9 - ACUTE KIDNEY FAILURE, UNSPECIFIED (2) Acute and chronic respiratory failure Code(s): J96.20 - ACUTE AND CHR RESP FAILURE, UNSP W HYPOXIA OR HYPERCAPNIA (3) Imrpm-sy-ukijrzm kidney injury Code(s): N17.9 - ACUTE KIDNEY FAILURE, UNSPECIFIED; N18.9 - CHRONIC KIDNEY DISEASE, UNSPECIFIED (4) CHF exacerbation Code(s): I50.9 - HEART FAILURE, UNSPECIFIED (5) Diabetes Code(s): E11.9 - TYPE 2 DIABETES MELLITUS WITHOUT COMPLICATIONS
--- NOTE | 2018-10-12 13:40 | PN ---
Progress Note (short form) - Note Progress Note: Per Renal/Hira, asked that the right IJ trialysis cath be removed. right neck prepped. Trialysis cath removed with distal tip intact. Direct pressure held for 5 mins. + hemostasis. 2x2 and occlusive dressing applied. Problem List - Problems (1) BRET (acute kidney injury) Code(s): N17.9 - ACUTE KIDNEY FAILURE, UNSPECIFIED (2) CHF exacerbation Code(s): I50.9 - HEART FAILURE, UNSPECIFIED (3) Chronic renal insufficiency, stage III (moderate) Code(s): N18.3 - CHRONIC KIDNEY DISEASE, STAGE 3 (MODERATE) (4) Diabetes Code(s): E11.9 - TYPE 2 DIABETES MELLITUS WITHOUT COMPLICATIONS
[2018-10-12] MEDS: ATORVASTATIN CA 20 MG TABLET (FP) PO SCH (22:17)
[2018-10-12] MEDS: INSULIN (LEVEMIR) 100 UNITS/ML UNITS SQ SCH (22:18)
[2018-10-13] MEDS ORDERED: METHADONE HCL 10 MG TABLET ONE (05:59)
[2018-10-13] MEDS ORDERED: METHADONE HCL 40 MG DISPERSABLE TABLET ONE (05:59)
[2018-10-13] MEDS: METHADONE 40 MG, METHADONE 20 MG PO SCH (06:28)
[2018-10-13] MEDS: HEPARIN NA (PORCINE) 5,000 UNITS/ML 1ML VIAL SQ SCH ×3 (06:28→21:43)
[2018-10-13] MEDS: INSULIN SLIDING SCALE (NOVOLOG) 1 VIAL SQ SCH ×4 (06:34→21:47)
[2018-10-13 07:58] LABS: BLOOD UREA NITROGEN 39.6 mg/dL (7-18); CALCIUM 7.8 mg/dL (8.5-10.1); CREATININE 2.6 mg/dL (0.55-1.3); POTASSIUM 3.8 mmol/L (3.5-5.1)
[2018-10-13] MEDS: CALCIUM ACETATE 667 MG CAPSULE (FP) PO SCH ×3 (08:11→17:41)
[2018-10-13] MEDS: LABETALOL HCL 200 MG TABLET (FP) PO SCH ×2 (09:15→21:44)
[2018-10-13] MEDS: ISOSORBIDE MONONITRATE 60 MG TAB.SR.24H (FP) PO SCH (09:15)
[2018-10-13] MEDS: TORSEMIDE 20 MG TABLET (FP) PO SCH (09:15)
[2018-10-13] MEDS: PANTOPRAZOLE 40 MG TABLET (FP) PO SCH (09:16)
[2018-10-13] MEDS: methylPREDNISolone NA SUCC 40 MG/1 ML VIAL IVPUSH SCH (09:16)
[2018-10-13] MEDS: NIFEdipine E.R. 90 MG TABLET (FP) PO SCH ×2 (09:16→21:44)
--- NOTE | 2018-10-13 09:16 | PN ---
Progress Note (short form) - Note Progress Note: PULMONARY AWAKE/ALERT TOLERATING HD WELL BREATHING MUCH IMPROVED VSS Constitutional: Yes: Well Nourished, Calm Eyes: Yes: WNL HENT: Yes: WNL Neck: Yes: WNL Cardiovascular: Yes: Regular Rate and Rhythm, S1, S2 Respiratory: Yes: Diminished, Rales (few bibasilar crackles) Gastrointestinal: Yes: Normal Bowel Sounds, Soft Extremities: Yes: WNL Edema: Yes Labs: Problem List - Problems (1) Ferho-il-kvahqtt kidney injury Code(s): N17.9 - ACUTE KIDNEY FAILURE, UNSPECIFIED; N18.9 - CHRONIC KIDNEY DISEASE, UNSPECIFIED (2) CHF exacerbation Code(s): I50.9 - HEART FAILURE, UNSPECIFIED (3) Chronic renal insufficiency, stage III (moderate) Code(s): N18.3 - CHRONIC KIDNEY DISEASE, STAGE 3 (MODERATE) (4) Diabetes Code(s): E11.9 - TYPE 2 DIABETES MELLITUS WITHOUT COMPLICATIONS (5) History of lung cancer Code(s): Z85.118 - PERSONAL HISTORY OF MALIGNANT NEOPLASM OF BRONCHUS AND LUNG (6) Normocytic anemia Code(s): D64.9 - ANEMIA, UNSPECIFIED (7) Dyspnea Code(s): R06.00 - DYSPNEA, UNSPECIFIED (8) Acute and chronic respiratory failure Code(s): J96.20 - ACUTE AND CHR RESP FAILURE, UNSP W HYPOXIA OR HYPERCAPNIA (9) Pneumonia Code(s): J18.9 - PNEUMONIA, UNSPECIFIED ORGANISM Assessment/Plan A/P Acute Hypoxic Respiratory Failure resolved Acute on Chronic Diastolic Heart Failure Acute on Chronic Renal Failure requiring HD h/o Lung Ca HTN DM - changed medrol to prednisone - inhaled bronchodilators - HD per renal - O2 to keep SpO2 >90% - PO as tolerated - DVT darleen AWAD MD
[2018-10-13] MEDS ORDERED: TORSEMIDE 20 MG TABLET (FP) PO SCH (10:00)
[2018-10-13] MEDS ORDERED: predniSONE 10 MG TABLET (UD) PO SCH (10:00)
--- NOTE | 2018-10-13 11:12 | PN ---
Progress Note (short form) - Note Progress Note: s: no chest pain, palps, dyspnea. yesterday had edema, improved with leg elevation, torsemide. Current Medications Albumin Human (Albumin Human 25%) 12.5 gm IVPB Q30M [facility] Alprazolam (Xanax -) 0.25 mg PO Q12H PRN PRN Reason: ANXIETY Atorvastatin Calcium (Lipitor -) 20 mg PO HS [facility] Last Admin: 10/12/18 22:17 Dose: 20 mg Calcium Acetate (Phoslo -) 667 mg PO TIDCM [facility] Last Admin: 10/13/18 08:11 Dose: 667 mg Heparin Sodium (Porcine) (Heparin -) 5,000 unit SQ TID [facility] Last Admin: 10/13/18 06:28 Dose: 5,000 unit Sodium Chloride (Normal Saline -) 250 mls @ 3,000 mls/hr IV PRN PRN PRN Reason: Hypotension during Dialysis Stop: 10/13/18 07:40 Insulin Aspart (Novolog Vial Sliding Scale -) 1 vial SQ [facility]; Protocol Last Admin: 10/13/18 06:34 Dose: 6 units Insulin Detemir (Levemir Vial) 12 units SQ HS [facility] Last Admin: 10/12/18 22:18 Dose: 12 units Isosorbide Mononitrate (Imdur -) 60 mg PO DAILY [facility] Last Admin: 10/13/18 09:15 Dose: 60 mg Labetalol HCl (Normodyne -) 400 mg PO BID [facility] Last Admin: 10/13/18 09:15 Dose: 400 mg Melatonin (Melatonin) 5 mg PO HS PRN PRN Reason: INSOMNIA Methadone HCl 40 mg/ Methadone (HCl 20 mg) 60 mg PO DAILY@0600 [facility] Last Admin: 10/13/18 06:28 Dose: 60 mg Nifedipine (Procardia Xl -) 90 mg PO BID [facility] Last Admin: 10/13/18 09:16 Dose: 90 mg Pantoprazole Sodium (Protonix -) 40 mg PO DAILY [facility] Last Admin: 10/13/18 09:16 Dose: 40 mg Prednisone (Deltasone -) 30 mg PO DAILY [facility] Last Admin: 10/13/18 09:17 Dose: Not Given Torsemide (Demadex -) 80 mg PO DAILY [facility] Last Admin: 10/13/18 09:15 Dose: 80 mg Vital Signs Period Temp Pulse Resp BP Sys/Bansal Pulse Ox Last 24 Hr 97.7 F-98.8 F 52-77 18-20 109-158/49-71 92-97 Constitutional: Yes: No Distress Cardiovascular: Yes: Regular Rate and Rhythm Respiratory: Yes: CTA Bilaterally (no wheezing or rales) Gastrointestinal: Yes: Soft Edema: Yes Edema: LLE: 1+, RLE: 1+ Neurological: Yes: Alert, Oriented no jaundice, diaphoresis not agitated Assessment/Plan EKG: sinus, PVC, no ischemic changes echo 09/2018 nl LV function, mild MAC, tr MR, RVSP 32 mmHg tele: sinus, PVCs 68M h/o HTN, DM, HLD, PAD s/p femoral stent, prior smoker, R sided lung ca s/p partial resection p/w shortness of breath: Shortness of breath, PNA, acute diastolic CHF exacerbation: - likely multifactorial - h/o lung ca s/p resection, findings concerning for PNA - Pulmonary following, steroid taper - elevated BNP (7K) with congestion on CXR, likely component of HF - echo nl LV function, remainder unremarkable, no pulm HTN noted - torsemide started per renal, continue HTN with htn urgency: - stable on Imdur, Labetalol, Nifedipine, continue BRET on CKD: started on HD -s/p kidney bx -manage per renal HLD: - cont statin PAD: - cont statin - held plavix for kidney bx - restart when able
--- NOTE | 2018-10-13 11:25 | PN ---
Progress Note (short form) - Note Progress Note: events noted awake and alert Vital Signs - 24 hr 10/12/18 10/12/18 10/12/18 11:45 12:15 12:30 Temperature Pulse Rate 53 L 52 L 60 Respiratory 18 18 18 Rate Blood Pressure 109/56 L 116/67 132/67 O2 Sat by Pulse Oximetry (%) 10/12/18 10/12/18 10/12/18 14:00 18:00 20:48 Temperature 98.3 F 98.8 F Pulse Rate 62 60 Respiratory 20 18 Rate Blood Pressure 132/49 L 136/50 L O2 Sat by Pulse 92 L Oximetry (%) 10/12/18 10/13/18 10/13/18 22:00 02:00 07:00 Temperature 97.8 F 97.9 F 97.7 F Pulse Rate 76 77 74 Respiratory 20 18 20 Rate Blood Pressure 147/65 158/71 153/59 L O2 Sat by Pulse 97 Oximetry (%) Current Medications Generic Name Dose Route Start Last Admin Trade Name Freq PRN Reason Stop Dose Admin Albumin Human 12.5 gm 10/11/18 11:00 Albumin Human 25% IVPB Q30M GREGORY Alprazolam 0.25 mg 10/11/18 07:33 Xanax - PO Q12H PRN ANXIETY Atorvastatin Calcium 20 mg 10/11/18 22:00 10/12/18 22:17 Lipitor - PO 20 mg HS G[facility] Administration Calcium Acetate 667 mg 10/11/18 08:00 10/13/18 08:11 Phoslo - PO 667 mg TIDCM [facility] Administration Heparin Sodium (Porcine) 5,000 unit 10/11/18 14:00 10/13/18 06:28 Heparin - SQ 5,000 unit TID G[facility] Administration Sodium Chloride 250 mls @ 3,000 mls/hr 10/12/18 07:39 Normal Saline - IV 10/13/18 07:40 PRN PRN Hypotension during Dialysis Insulin Aspart 1 vial 10/09/18 21:37 10/13/18 06:34 Novolog Vial Sliding Scale - SQ 6 units ACHS [facility] Administration Protocol Insulin Detemir 12 units 10/11/18 22:00 10/12/18 22:18 Levemir Vial SQ 12 units HS G[facility] Administration Isosorbide Mononitrate 60 mg 10/11/18 10:00 10/13/18 09:15 Imdur - PO 60 mg DAILY [facility] Administration Labetalol HCl 400 mg 10/11/18 10:00 10/13/18 09:15 Normodyne - PO 400 mg BID [facility] Administration Melatonin 5 mg 10/11/18 22:00 Melatonin PO HS PRN INSOMNIA Methadone HCl 40 mg/ Methadone 60 mg 10/12/18 06:00 10/13/18 06:28 HCl 20 mg PO 60 mg DAILY@0600 [facility] Administration Nifedipine 90 mg 10/11/18 10:00 10/13/18 09:16 Procardia Xl - PO 90 mg BID [facility] Administration Pantoprazole Sodium 40 mg 10/11/18 10:00 10/13/18 09:16 Protonix - PO 40 mg DAILY [facility] Administration Prednisone 30 mg 10/13/18 10:00 10/13/18 09:17 Deltasone - PO Not Given DAILY [facility] Torsemide 80 mg 10/13/18 10:00 10/13/18 09:15 Demadex - PO 80 mg DAILY [facility] Administration Laboratory Results - last 24 hr 10/12/18 10/12/18 10/12/18 11:26 17:47 22:14 Sodium Potassium Chloride Carbon Dioxide Anion Gap BUN Creatinine Est GFR (CKD-EPI)AfAm Est GFR (CKD-EPI)NonAf POC Glucometer 159 417 413 Random Glucose Calcium 10/13/18 10/13/18 05:56 06:30 Sodium 137 Potassium 3.8 Chloride 97 L Carbon Dioxide 31 Anion Gap 9 BUN 39.6 H Creatinine 2.6 H Est GFR (CKD-EPI)AfAm 27.72 Est GFR (CKD-EPI)NonAf 23.91 POC Glucometer 315 Random Glucose 298 H Calcium 7.8 L S1 s2 RRR Lungs decreased breath sounds abd- soft, NT edema decreased PLAN CHF--on HD leucocytosis-- blood cultures , ua and urine culture-- negative may be elevate due to solumedrol off antibiotics on solumedrol Hep C ab positive, RNA PCR NOT DETECTED Dialysis per renal -- will need access increase levemir -- sugars elevated due to solumedrol taper solumedrol will need STR spoke with case mgr nelson on Monday Problem List - Problems (1) BRET (acute kidney injury) Code(s): N17.9 - ACUTE KIDNEY FAILURE, UNSPECIFIED (2) Acute and chronic respiratory failure Code(s): J96.20 - ACUTE AND CHR RESP FAILURE, UNSP W HYPOXIA OR HYPERCAPNIA (3) [id number] kidney injury Code(s): N17.9 - ACUTE KIDNEY FAILURE, UNSPECIFIED; N18.9 - CHRONIC KIDNEY DISEASE, UNSPECIFIED (4) CHF exacerbation Code(s): I50.9 - HEART FAILURE, UNSPECIFIED (5) Diabetes Code(s): E11.9 - TYPE 2 DIABETES MELLITUS WITHOUT COMPLICATIONS
--- NOTE | 2018-10-13 13:46 | PN ---
Progress Note (short form) - Note Progress Note: RENAL pt is awake and alert says hemodialysis has helped him Last Vital Signs Temp Pulse Resp BP Pulse Ox 97.7 F 74 20 153/59 L 97 10/13/18 07:00 10/13/18 07:00 10/13/18 07:00 10/13/18 07:00 10/12/18 22:00 lungs decreased breath sounds at right base cvs s1s2 abd soft ext +edema neuro a+ox3 CBC, BMP 10/12/18 05:40 10/13/18 06:30 Current Medications Generic Name Dose Route Start Last Admin Trade Name Freq PRN Reason Stop Dose Admin Albumin Human 12.5 gm 10/11/18 11:00 Albumin Human 25% IVPB Q30M [facility] Alprazolam 0.25 mg 10/11/18 07:33 Xanax - PO Q12H PRN ANXIETY Atorvastatin Calcium 20 mg 10/11/18 22:00 10/12/18 22:17 Lipitor - PO 20 mg HS [facility] Administration Calcium Acetate 667 mg 10/11/18 08:00 10/13/18 11:59 Phoslo - PO 667 mg TIDCM [facility] Administration Heparin Sodium (Porcine) 5,000 unit 10/11/18 14:00 10/13/18 13:18 Heparin - SQ 5,000 unit TID [facility] Administration Sodium Chloride 250 mls @ 3,000 mls/hr 10/12/18 07:39 Normal Saline - IV 10/13/18 07:40 PRN PRN Hypotension during Dialysis Insulin Aspart 1 vial 10/09/18 21:37 10/13/18 12:04 Novolog Vial Sliding Scale - SQ 6 units ACHS [facility] Administration Protocol Insulin Detemir 12 units 10/11/18 22:00 10/12/18 22:18 Levemir Vial SQ 12 units HS [facility] Administration Isosorbide Mononitrate 60 mg 10/11/18 10:00 10/13/18 09:15 Imdur - PO 60 mg DAILY [facility] Administration Labetalol HCl 400 mg 10/11/18 10:00 10/13/18 09:15 Normodyne - PO 400 mg BID [facility] Administration Melatonin 5 mg 10/11/18 22:00 Melatonin PO HS PRN INSOMNIA Methadone HCl 40 mg/ Methadone 60 mg 10/12/18 06:00 10/13/18 06:28 HCl 20 mg PO 60 mg DAILY@0600 [facility] Administration Nifedipine 90 mg 10/11/18 10:00 10/13/18 09:16 Procardia Xl - PO 90 mg BID [facility] Administration Pantoprazole Sodium 40 mg 10/11/18 10:00 10/13/18 09:16 Protonix - PO 40 mg DAILY [facility] Administration Prednisone 30 mg 10/13/18 10:00 10/13/18 09:17 Deltasone - PO Not Given DAILY [facility] Torsemide 80 mg 10/13/18 10:00 10/13/18 09:15 Demadex - PO 80 mg DAILY [facility] Administration IMPRESSION #Acute shortness of breath form diastolic HF + PNA #Peripheral edema #Acute on chronic renal insufficiency #Anemia #Hypertension #BPH hep c pos PLAN continue diuretics would reduce steroids monitor renal function If no further improvement would dialyze again on Sunday 10/15 though he needs a new catheter MV
[2018-10-13] MEDS: ATORVASTATIN CA 20 MG TABLET (FP) PO SCH (21:44)
[2018-10-13] MEDS: INSULIN (LEVEMIR) 100 UNITS/ML UNITS SQ SCH (21:45)
[2018-10-14] MEDS ORDERED: METHADONE HCL 40 MG DISPERSABLE TABLET ONE (05:52)
[2018-10-14] MEDS ORDERED: METHADONE HCL 10 MG TABLET ONE (05:52)
[2018-10-14] MEDS: METHADONE 40 MG, METHADONE 20 MG PO SCH (05:58)
[2018-10-14] MEDS: HEPARIN NA (PORCINE) 5,000 UNITS/ML 1ML VIAL SQ SCH ×3 (05:58→21:56)
[2018-10-14] MEDS: INSULIN SLIDING SCALE (NOVOLOG) 1 VIAL SQ SCH ×5 (06:48→22:34)
[2018-10-14] MEDS: CALCIUM ACETATE 667 MG CAPSULE (FP) PO SCH ×3 (08:08→18:11)
--- NOTE | 2018-10-14 08:52 | PN ---
Progress Note (short form) - Note Progress Note: PULMONARY AWAKE/ALERT TOLERATed HD TRIALYSIS CATHETER HAS BEEN REMOVED BREATHING MUCH IMPROVED VSS Constitutional: Yes: Well Nourished, Calm Eyes: Yes: WNL HENT: Yes: WNL Neck: Yes: WNL Cardiovascular: Yes: Regular Rate and Rhythm, S1, S2 Respiratory: Yes: Diminished, Rales (few bibasilar crackles) Gastrointestinal: Yes: Normal Bowel Sounds, Soft Extremities: Yes: WNL Edema: NO Labs: noted A/P Acute Hypoxic Respiratory Failure resolved Acute on Chronic Diastolic Heart Failure Acute on Chronic Renal Failure requiring HD h/o Lung Ca HTN DM - prednisone to taper - inhaled bronchodilators - HD per renal - O2 to keep SpO2 >90% - PO as tolerated - DVT darleen AWAD MD
[2018-10-14] MEDS ORDERED: PT OWN MED DRAWER 7, Y5N ONE (10:04)
[2018-10-14] MEDS: ISOSORBIDE MONONITRATE 60 MG TAB.SR.24H (FP) PO SCH (10:26)
[2018-10-14] MEDS: PANTOPRAZOLE 40 MG TABLET (FP) PO SCH (10:26)
[2018-10-14] MEDS: LABETALOL HCL 200 MG TABLET (FP) PO SCH ×2 (10:26→21:59)
[2018-10-14] MEDS: predniSONE 10 MG TABLET (UD) PO SCH (10:27)
[2018-10-14] MEDS: TORSEMIDE 20 MG TABLET (FP) PO SCH (10:27)
[2018-10-14] MEDS: NIFEdipine E.R. 90 MG TABLET (FP) PO SCH ×2 (10:28→21:59)
--- NOTE | 2018-10-14 11:12 | PN ---
Progress Note (short form) - Note Progress Note: s: no chest pain, palps, dyspnea. stable edema Current Medications Albumin Human (Albumin Human 25%) 12.5 gm IVPB Q30M [facility] Atorvastatin Calcium (Lipitor -) 20 mg PO HS [facility] Last Admin: 10/13/18 21:44 Dose: 20 mg Calcium Acetate (Phoslo -) 667 mg PO TIDCM [facility] Last Admin: 10/14/18 08:08 Dose: 667 mg Heparin Sodium (Porcine) (Heparin -) 5,000 unit SQ TID [facility] Last Admin: 10/14/18 05:58 Dose: 5,000 unit Sodium Chloride (Normal Saline -) 250 mls @ 3,000 mls/hr IV PRN PRN PRN Reason: Hypotension during Dialysis Stop: 10/13/18 07:40 Insulin Aspart (Novolog Vial Sliding Scale -) 1 vial SQ [facility]; Protocol Last Admin: 10/14/18 06:48 Dose: Not Given Insulin Detemir (Levemir Vial) 12 units SQ HS [facility] Last Admin: 10/13/18 21:45 Dose: 12 units Isosorbide Mononitrate (Imdur -) 60 mg PO DAILY [facility] Last Admin: 10/14/18 10:26 Dose: 60 mg Labetalol HCl (Normodyne -) 400 mg PO BID [facility] Last Admin: 10/14/18 10:26 Dose: 400 mg Melatonin (Melatonin) 5 mg PO HS PRN PRN Reason: INSOMNIA Methadone HCl 40 mg/ Methadone (HCl 20 mg) 60 mg PO DAILY@0600 [facility] Last Admin: 10/14/18 05:58 Dose: 60 mg Nifedipine (Procardia Xl -) 90 mg PO BID [facility] Last Admin: 10/14/18 10:28 Dose: 90 mg Pantoprazole Sodium (Protonix -) 40 mg PO DAILY [facility] Last Admin: 10/14/18 10:26 Dose: 40 mg Prednisone (Deltasone -) 20 mg PO DAILY [facility] Last Admin: 10/14/18 10:27 Dose: 20 mg Torsemide (Demadex -) 80 mg PO DAILY [facility] Last Admin: 10/14/18 10:27 Dose: 80 mg Vital Signs Period Temp Pulse Resp BP Sys/Bansal Pulse Ox Last 24 Hr 97.9 F-98.6 F 57-70 20-20 146-163/51-72 95-95 Constitutional: Yes: No Distress Cardiovascular: Yes: Regular Rate and Rhythm Respiratory: Yes: CTA Bilaterally (no wheezing or rales) Gastrointestinal: Yes: Soft Edema: Yes Edema: LLE: 1+, RLE: 1+ Neurological: Yes: Alert, Oriented no jaundice, diaphoresis not agitated Assessment/Plan EKG: sinus, PVC, no ischemic changes echo 09/2018 nl LV function, mild MAC, tr MR, RVSP 32 mmHg tele: sinus, PVCs 70M h/o HTN, DM, HLD, PAD s/p femoral stent, prior smoker, R sided lung ca s/p partial resection p/w shortness of breath: Shortness of breath, PNA, acute diastolic CHF exacerbation: - likely multifactorial - h/o lung ca s/p resection, findings concerning for PNA - Pulmonary following, steroid taper - elevated BNP (7K) with congestion on CXR, likely component of HF - echo nl LV function, remainder unremarkable, no pulm HTN noted - torsemide started per renal, continue HTN with htn urgency: - stable on Imdur, Labetalol, Nifedipine, continue BRET on CKD: started on HD -s/p kidney bx -manage per renal, plan for permacath placement tomorrow HLD: - cont statin PAD: - cont statin - held plavix for kidney bx - restart when able
--- NOTE | 2018-10-14 11:17 | PN ---
Progress Note (short form) - Note Progress Note: events noted awake and alert Vital Signs - 24 hr 10/13/18 10/13/18 10/13/18 17:00 21:00 21:05 Temperature 98.6 F 97.9 F Pulse Rate 70 67 Respiratory 20 20 Rate Blood Pressure 163/72 146/68 O2 Sat by Pulse 95 95 Oximetry (%) 10/14/18 10/14/18 02:37 05:40 Temperature 98.0 F 98.2 F Pulse Rate 57 L 58 L Respiratory 20 20 Rate Blood Pressure 147/59 L 151/51 L O2 Sat by Pulse Oximetry (%) Current Medications Generic Name Dose Route Start Last Admin Trade Name Freq PRN Reason Stop Dose Admin Albumin Human 12.5 gm 10/11/18 11:00 Albumin Human 25% IVPB Q30M [facility] Atorvastatin Calcium 20 mg 10/11/18 22:00 10/13/18 21:44 Lipitor - PO 20 mg HS [facility]REGORY Administration Calcium Acetate 667 mg 10/11/18 08:00 10/14/18 08:08 Phoslo - PO 667 mg TIDCM [facility] Administration Heparin Sodium (Porcine) 5,000 unit 10/11/18 14:00 10/14/18 05:58 Heparin - SQ 5,000 unit TID [facility] Administration Sodium Chloride 250 mls @ 3,000 mls/hr 10/12/18 07:39 Normal Saline - IV 10/13/18 07:40 PRN PRN Hypotension during Dialysis Insulin Aspart 1 vial 10/09/18 21:37 10/14/18 06:48 Novolog Vial Sliding Scale - SQ Not Given ACHS [facility] Protocol Insulin Detemir 12 units 10/11/18 22:00 10/13/18 21:45 Levemir Vial SQ 12 units HS GREGORY Administration Isosorbide Mononitrate 60 mg 10/11/18 10:00 10/14/18 10:26 Imdur - PO 60 mg DAILY [facility] Administration Labetalol HCl 400 mg 10/11/18 10:00 10/14/18 10:26 Normodyne - PO 400 mg BID [facility] Administration Melatonin 5 mg 10/11/18 22:00 Melatonin PO HS PRN INSOMNIA Methadone HCl 40 mg/ Methadone 60 mg 10/12/18 06:00 10/14/18 05:58 HCl 20 mg PO 60 mg DAILY@0600 [facility] Administration Nifedipine 90 mg 10/11/18 10:00 10/14/18 10:28 Procardia Xl - PO 90 mg BID [facility] Administration Pantoprazole Sodium 40 mg 10/11/18 10:00 10/14/18 10:26 Protonix - PO 40 mg DAILY [facility] Administration Prednisone 20 mg 10/14/18 10:00 10/14/18 10:27 Deltasone - PO 20 mg DAILY [facility] Administration Torsemide 80 mg 10/13/18 10:00 10/14/18 10:27 Demadex - PO 80 mg DAILY [facility] Administration Laboratory Results - last 24 hr 10/13/18 10/13/18 10/13/18 11:50 16:54 21:46 POC Glucometer 261 286 321 10/14/18 05:26 POC Glucometer 75 S1 s2 RRR Lungs decreased breath sounds abd- soft, NT edema decreased PLAN CHF--on HD off antibiotics on prednisone spoke with daughter at bedside Hep C ab positive, RNA PCR NOT DETECTED Dialysis per renal -- will need access will need STR spoke with manager of case management nelson on Monday PT sophia Problem List - Problems (1) BRET (acute kidney injury) Code(s): N17.9 - ACUTE KIDNEY FAILURE, UNSPECIFIED (2) Acute and chronic respiratory failure Code(s): J96.20 - ACUTE AND CHR RESP FAILURE, UNSP W HYPOXIA OR HYPERCAPNIA (3) Jqlur-ep-bacritf kidney injury Code(s): N17.9 - ACUTE KIDNEY FAILURE, UNSPECIFIED; N18.9 - CHRONIC KIDNEY DISEASE, UNSPECIFIED (4) CHF exacerbation Code(s): I50.9 - HEART FAILURE, UNSPECIFIED (5) Diabetes Code(s): E11.9 - TYPE 2 DIABETES MELLITUS WITHOUT COMPLICATIONS
--- NOTE | 2018-10-14 13:59 | PN ---
Progress Note (short form) - Note Progress Note: RENAL pt is awake and alert says hemodialysis has helped him feels better Last Vital Signs Temp Pulse Resp BP Pulse Ox 98.2 F 58 L 20 151/51 L 95 10/14/18 05:40 10/14/18 05:40 10/14/18 05:40 10/14/18 05:40 10/13/18 21:05 lungs decreased breath sounds at right base, right is clear cvs s1s2 abd soft ext +edema neuro a+ox3 CBC, BMP 10/12/18 05:40 10/13/18 06:30 Current Medications Generic Name Dose Route Start Last Admin Trade Name Freq PRN Reason Stop Dose Admin Albumin Human 12.5 gm 10/11/18 11:00 Albumin Human 25% IVPB Q30M [facility] Atorvastatin Calcium 20 mg 10/11/18 22:00 10/13/18 21:44 Lipitor - PO 20 mg HS [facility] Administration Calcium Acetate 667 mg 10/11/18 08:00 10/14/18 11:57 Phoslo - PO 667 mg TIDCM [facility] Administration Heparin Sodium (Porcine) 5,000 unit 10/11/18 14:00 10/14/18 05:58 Heparin - SQ 5,000 unit TID [facility] Administration Sodium Chloride 250 mls @ 3,000 mls/hr 10/12/18 07:39 Normal Saline - IV 10/13/18 07:40 PRN PRN Hypotension during Dialysis Insulin Aspart 1 vial 10/09/18 21:37 10/14/18 11:56 Novolog Vial Sliding Scale - SQ 3 units ACHS [facility] Administration Protocol Insulin Detemir 12 units 10/11/18 22:00 10/13/18 21:45 Levemir Vial SQ 12 units HS [facility] Administration Isosorbide Mononitrate 60 mg 10/11/18 10:00 10/14/18 10:26 Imdur - PO 60 mg DAILY [facility] Administration Labetalol HCl 400 mg 10/11/18 10:00 10/14/18 10:26 Normodyne - PO 400 mg BID [facility] Administration Melatonin 5 mg 10/11/18 22:00 Melatonin PO HS PRN INSOMNIA Methadone HCl 40 mg/ Methadone 60 mg 10/12/18 06:00 10/14/18 05:58 HCl 20 mg PO 60 mg DAILY@0600 [facility] Administration Nifedipine 90 mg 10/11/18 10:00 10/14/18 10:28 Procardia Xl - PO 90 mg BID [facility] Administration Pantoprazole Sodium 40 mg 10/11/18 10:00 10/14/18 10:26 Protonix - PO 40 mg DAILY [facility] Administration Prednisone 20 mg 10/14/18 10:00 10/14/18 10:27 Deltasone - PO 20 mg DAILY [facility] Administration Torsemide 80 mg 10/13/18 10:00 10/14/18 10:27 Demadex - PO 80 mg DAILY [facility] Administration IMPRESSION #Acute shortness of breath form diastolic HF + PNA #Peripheral edema #Acute on chronic renal insufficiency #Anemia #Hypertension #BPH hep c pos PLAN continue diuretics would reduce steroids monitor renal function If no further improvement would dialyze again on tomorrow though he needs a new catheter MV
[2018-10-14] MEDS: INSULIN (LEVEMIR) 100 UNITS/ML UNITS SQ SCH (21:58)
[2018-10-14] MEDS: ATORVASTATIN CA 20 MG TABLET (FP) PO SCH (21:58)
[2018-10-14] MEDS: Insulin (LOG) Aspart 100 UNITS/ML VIAL SQ ONE (22:05)
[2018-10-15] MEDS ORDERED: METHADONE HCL 40 MG DISPERSABLE TABLET ONE (05:33)
[2018-10-15] MEDS ORDERED: METHADONE HCL 10 MG TABLET ONE (05:33)
[2018-10-15] MEDS: METHADONE 40 MG, METHADONE 20 MG PO SCH (05:58)
[2018-10-15] MEDS: HEPARIN NA (PORCINE) 5,000 UNITS/ML 1ML VIAL SQ SCH ×2 (05:58→22:23)
[2018-10-15] MEDS: INSULIN SLIDING SCALE (NOVOLOG) 1 VIAL SQ SCH ×3 (06:29→22:25)
[2018-10-15 07:43] LABS: ALBUMIN 2.3 g/dl (3.4-5.0); BILIRUBIN,TOTAL 0.4 mg/dL (0.2-1); BLOOD UREA NITROGEN 72.1 mg/dL (7-18); CALCIUM 7.7 mg/dL (8.5-10.1); CREATININE 3.2 mg/dL (0.55-1.3); POTASSIUM 3.7 mmol/L (3.5-5.1); TOT PROT 5.4 g/dl (6.4-8.2)
--- NOTE | 2018-10-15 08:54 | PN ---
Progress Note, Physician Chief Complaint: seen and examined on 4W No CP, SOB - Current Medication List Current Medications: Active Medications Albumin Human (Albumin Human 25%) 12.5 gm IVPB Q30M [facility] Atorvastatin Calcium (Lipitor -) 20 mg PO HS [facility] Last Admin: 10/14/18 21:58 Dose: 20 mg Calcium Acetate (Phoslo -) 667 mg PO TIDCM [facility] Last Admin: 10/14/18 18:11 Dose: 667 mg Heparin Sodium (Porcine) (Heparin -) 5,000 unit SQ TID [facility] Last Admin: 10/15/18 05:58 Dose: 5,000 unit Sodium Chloride (Normal Saline -) 250 mls @ 3,000 mls/hr IV PRN PRN PRN Reason: Hypotension during Dialysis Stop: 10/13/18 07:40 Insulin Aspart (Novolog Vial Sliding Scale -) 1 vial SQ [facility]; Protocol Last Admin: 10/15/18 06:29 Dose: Not Given Insulin Aspart (Novolog) 20 units SQ ONCE ONE Stop: 10/15/18 22:06 Last Admin: 10/14/18 22:05 Dose: 20 units Insulin Detemir (Levemir Vial) 12 units SQ HS [facility] Last Admin: 10/14/18 21:58 Dose: 12 units Isosorbide Mononitrate (Imdur -) 60 mg PO DAILY [facility] Last Admin: 10/14/18 10:26 Dose: 60 mg Labetalol HCl (Normodyne -) 400 mg PO BID [facility] Last Admin: 10/14/18 21:59 Dose: 400 mg Melatonin (Melatonin) 5 mg PO HS PRN PRN Reason: INSOMNIA Methadone HCl 40 mg/ Methadone (HCl 20 mg) 60 mg PO DAILY@0600 [facility] Last Admin: 10/15/18 05:58 Dose: 60 mg Nifedipine (Procardia Xl -) 90 mg PO BID [facility] Last Admin: 10/14/18 21:59 Dose: 90 mg Pantoprazole Sodium (Protonix -) 40 mg PO DAILY [facility] Last Admin: 10/14/18 10:26 Dose: 40 mg Prednisone (Deltasone -) 20 mg PO DAILY [facility] Last Admin: 10/14/18 10:27 Dose: 20 mg Torsemide (Demadex -) 80 mg PO DAILY [facility] Last Admin: 10/14/18 10:27 Dose: 80 mg - Objective Vital Signs: Vital Signs Temperature 98.2 F 10/15/18 05:54 Pulse Rate 66 10/15/18 05:54 Respiratory Rate 18 10/15/18 05:54 Blood Pressure 163/60 10/15/18 05:54 O2 Sat by Pulse Oximetry (%) 93 L 10/14/18 22:00 Constitutional: Yes: No Distress Cardiovascular: Yes: Regular Rate and Rhythm Respiratory: Yes: CTA Bilaterally Gastrointestinal: Yes: Soft Edema: Yes Edema: LLE: 1+, RLE: 1+ Neurological: Yes: Alert, Oriented Labs: CBC, BMP 10/12/18 05:40 10/15/18 06:30 INR, PTT INR 1.11 (0.83-1.09) H 09/17/18 12:23 - ....Imaging EKG: Image Reviewed Assessment/Plan Assessment/Plan EKG: sinus, PVC, no ischemic changes echo 09/2018 nl LV function, mild MAC, tr MR, RVSP 32 mmHg tele: sinus, PVCs 70M h/o HTN, DM, HLD, PAD s/p femoral stent, prior smoker, R sided lung ca s/p partial resection p/w shortness of breath: Shortness of breath, PNA, acute diastolic CHF exacerbation: - likely multifactorial - h/o lung ca s/p resection, findings concerning for PNA - Pulmonary following, steroid taper - elevated BNP (7K) with congestion on CXR, likely component of HF - echo nl LV function, remainder unremarkable, no pulm HTN noted - torsemide started per renal, continue HTN with htn urgency: - stable on Imdur, Labetalol, Nifedipine, continue BRET on CKD: started on HD -s/p kidney bx -manage per renal, plan for permacath placement tomorrow HLD: - cont statin PAD: - cont statin - held plavix for kidney bx - restart when able
--- NOTE | 2018-10-15 10:33 | PN ---
Progress Note, Physician History of Present Illness: pulmonary alert,feeling better,dyspnea improving. O2 at 97% on nasal cannula - Current Medication List Current Medications: Active Medications Albumin Human (Albumin Human 25%) 12.5 gm IVPB Q30M [facility] Atorvastatin Calcium (Lipitor -) 20 mg PO HS [facility] Last Admin: 10/14/18 21:58 Dose: 20 mg Calcium Acetate (Phoslo -) 667 mg PO TIDCM [facility] Last Admin: 10/14/18 18:11 Dose: 667 mg Heparin Sodium (Porcine) (Heparin -) 5,000 unit SQ TID [facility] Last Admin: 10/15/18 05:58 Dose: 5,000 unit Sodium Chloride (Normal Saline -) 250 mls @ 3,000 mls/hr IV PRN PRN PRN Reason: Hypotension during Dialysis Stop: 10/13/18 07:40 Insulin Aspart (Novolog Vial Sliding Scale -) 1 vial SQ [facility]; Protocol Last Admin: 10/15/18 06:29 Dose: Not Given Insulin Aspart (Novolog) 20 units SQ ONCE ONE Stop: 10/15/18 22:06 Last Admin: 10/14/18 22:05 Dose: 20 units Insulin Detemir (Levemir Vial) [address] [facility] Last Admin: 10/14/18 21:58 Dose: 12 units Isosorbide Mononitrate (Imdur -) 60 mg PO DAILY [facility] Last Admin: 10/14/18 10:26 Dose: 60 mg Labetalol HCl (Normodyne -) 400 mg PO BID [facility] Last Admin: 10/14/18 21:59 Dose: 400 mg Melatonin (Melatonin) 5 mg PO HS PRN PRN Reason: INSOMNIA Methadone HCl 40 mg/ Methadone (HCl 20 mg) 60 mg PO DAILY@0600 [facility] Last Admin: 10/15/18 05:58 Dose: 60 mg Nifedipine (Procardia Xl -) 90 mg PO BID [facility] Last Admin: 10/14/18 21:59 Dose: 90 mg Pantoprazole Sodium (Protonix -) 40 mg PO DAILY [facility] Last Admin: 10/14/18 10:26 Dose: 40 mg Prednisone (Deltasone -) 20 mg PO DAILY [facility] Last Admin: 10/14/18 10:27 Dose: 20 mg Torsemide (Demadex -) 80 mg PO DAILY [facility] Last Admin: 10/14/18 10:27 Dose: 80 mg - Objective Vital Signs: Vital Signs Temperature 98.2 F 10/15/18 05:54 Pulse Rate 66 10/15/18 05:54 Respiratory Rate 18 10/15/18 05:54 Blood Pressure 163/60 10/15/18 05:54 O2 Sat by Pulse Oximetry (%) 93 L 10/14/18 22:00 Constitutional: Yes: Well Nourished, Calm Eyes: Yes: WNL HENT: Yes: WNL Neck: Yes: WNL Cardiovascular: Yes: Regular Rate and Rhythm, S1, S2 Respiratory: Yes: Rales (few crackle left base) Gastrointestinal: Yes: Normal Bowel Sounds, Soft Extremities: Yes: WNL Edema: Yes Edema: LLE: Trace, RLE: Trace Labs: CBC, BMP 10/15/18 06:30 INR, PTT INR 1.11 (0.83-1.09) H 09/17/18 12:23 Problem List - Problems (1) [id number] kidney injury Code(s): N17.9 - ACUTE KIDNEY FAILURE, UNSPECIFIED; N18.9 - CHRONIC KIDNEY DISEASE, UNSPECIFIED (2) CHF exacerbation Code(s): I50.9 - HEART FAILURE, UNSPECIFIED (3) Chronic renal insufficiency, stage III (moderate) Code(s): N18.3 - CHRONIC KIDNEY DISEASE, STAGE 3 (MODERATE) (4) Diabetes Code(s): E11.9 - TYPE 2 DIABETES MELLITUS WITHOUT COMPLICATIONS (5) History of lung cancer Code(s): Z85.118 - PERSONAL HISTORY OF MALIGNANT NEOPLASM OF BRONCHUS AND LUNG (6) Normocytic anemia Code(s): D64.9 - ANEMIA, UNSPECIFIED (7) Dyspnea Code(s): R06.00 - DYSPNEA, UNSPECIFIED (8) Acute and chronic respiratory failure Code(s): J96.20 - ACUTE AND CHR RESP FAILURE, UNSP W HYPOXIA OR HYPERCAPNIA (9) Pneumonia Code(s): J18.9 - PNEUMONIA, UNSPECIFIED ORGANISM Assessment/Plan A/P Acute Hypoxic Respiratory Failure improving r/o Acute Pneumonitis/Interstitial Lung Disease r/o Pneumonia Acute on Chronic Diastolic Heart Failure Acute on Chronic Renal Failure requiring HD h/o Lung Ca HTN DM - prednisone - inhaled bronchodilators - HD per renal - O2 to keep SpO2 >90% - DVT prophylaxis DR MARIE
[2018-10-15] MEDS: CALCIUM ACETATE 667 MG CAPSULE (FP) PO SCH ×2 (10:34→18:31)
[2018-10-15] MEDS: PANTOPRAZOLE 40 MG TABLET (FP) PO SCH (10:39)
[2018-10-15] MEDS: TORSEMIDE 20 MG TABLET (FP) PO SCH (10:43)
[2018-10-15] MEDS: predniSONE 10 MG TABLET (UD) PO SCH (10:43)
[2018-10-15] MEDS: ISOSORBIDE MONONITRATE 60 MG TAB.SR.24H (FP) PO SCH (10:44)
--- NOTE | 2018-10-15 11:41 | PN ---
Progress Note (short form) - Note Progress Note: pt seen/ examined chart is reviewed feels better denies cp. breathing better All f/u noted Vital Signs Temp 97.4 F L 10/15/18 10:00 Pulse 61 10/15/18 10:00 Resp 24 H 10/15/18 10:00 BP 154/67 10/15/18 10:00 Pulse Ox 93 L 10/14/18 22:00 Intake & Output 10/14/18 10/14/18 10/15/18 11:59 23:59 11:59 Intake Total 240 740 10 Balance 240 740 10 Weight 162 lb 6.4 oz 163 lb 6.4 oz Intake: IV 10 RFA 10 Oral 240 740 Other: Voiding Method Toilet Urinal Toilet # Unmeasured Voids Void 2 2 Bowel Movement No No Weight Measurement Method Standing Scale Standing Scale Active Medications Albumin Human (Albumin Human 25%) 12.5 gm IVPB Q30M [facility] Atorvastatin Calcium (Lipitor -) 20 mg PO HS [facility] Last Admin: 10/14/18 21:58 Dose: 20 mg Calcium Acetate (Phoslo -) 667 mg PO TIDCM [facility] Last Admin: 10/15/18 10:34 Dose: Not Given Heparin Sodium (Porcine) (Heparin -) 5,000 unit SQ TID [facility] Last Admin: 10/15/18 05:58 Dose: 5,000 unit Sodium Chloride (Normal Saline -) 250 mls @ 3,000 mls/hr IV PRN PRN PRN Reason: Hypotension during Dialysis Stop: 10/13/18 07:40 Insulin Aspart (Novolog Vial Sliding Scale -) 1 vial SQ [facility]; Protocol Last Admin: 10/15/18 06:29 Dose: Not Given Insulin Aspart (Novolog) 20 units SQ ONCE ONE Stop: 10/15/18 22:06 Last Admin: 10/14/18 22:05 Dose: 20 units Insulin Detemir (Levemir Vial) 12 units SQ [facility] Last Admin: 10/14/18 21:58 Dose: 12 units Isosorbide Mononitrate (Imdur -) 60 mg PO DAILY [facility] Last Admin: 10/15/18 10:44 Dose: 60 mg Labetalol HCl (Normodyne -) 400 mg PO BID [facility] Last Admin: 10/14/18 21:59 Dose: 400 mg Melatonin (Melatonin) 5 mg PO HS PRN PRN Reason: INSOMNIA Methadone HCl 40 mg/ Methadone (HCl 20 mg) 60 mg PO DAILY@0600 [facility] Last Admin: 10/15/18 05:58 Dose: 60 mg Nifedipine (Procardia Xl -) 90 mg PO BID [facility] Last Admin: 10/14/18 21:59 Dose: 90 mg Pantoprazole Sodium (Protonix -) 40 mg PO DAILY [facility] Last Admin: 10/15/18 10:39 Dose: 40 mg Prednisone (Deltasone -) 20 mg PO DAILY [facility] Last Admin: 10/15/18 10:43 Dose: 20 mg Torsemide (Demadex -) 80 mg PO DAILY [facility] Last Admin: 10/15/18 10:43 Dose: 80 mg CBC, BMP 10/12/18 05:40 10/15/18 06:30 Microbiology 10/09/18 13:45 Blood Culture - Final Blood - Peripheral Venous NO GROWTH AFTER 5 DAYS INCUBATION 10/09/18 13:10 Blood Culture - Final Blood - Peripheral Venous NO GROWTH AFTER 5 DAYS INCUBATION physical Exam Awak3e/ comfortable S1 s2 RRR Lungs decreased breath sounds at bases abd- soft, NT Trace edema PLAN Better Hep C ab positive, RNA PCR NOT DETECTED Dialysis per renal -- will need access--Permacath to be placed today Renal Biopsy -- Discussed with Dr. Iniguez today Restart Plavix tomorrow will need STR permacath today PT eval will follow Tapering prednisone Monitor BGm Problem List - Problems (1) Pneumonia Code(s): J18.9 - PNEUMONIA, UNSPECIFIED ORGANISM (2) Acute and chronic respiratory failure Code(s): J96.20 - ACUTE AND CHR RESP FAILURE, UNSP W HYPOXIA OR HYPERCAPNIA (3) CHF exacerbation Code(s): I50.9 - HEART FAILURE, UNSPECIFIED (4) History of lung cancer Code(s): Z85.118 - PERSONAL HISTORY OF MALIGNANT NEOPLASM OF BRONCHUS AND LUNG (5) Diabetes Code(s): E11.9 - TYPE 2 DIABETES MELLITUS WITHOUT COMPLICATIONS (6) Chronic renal insufficiency, stage III (moderate) Code(s): N18.3 - CHRONIC KIDNEY DISEASE, STAGE 3 (MODERATE)
[2018-10-15] MEDS ORDERED: HEPARIN NA (PORCINE) 5,000 UNITS/ML 1ML VIAL ONE (13:08)
[2018-10-15] MEDS ORDERED: MIDAZOLAM HCL 2 MG/2 ML SINGLE DOSE VIAL ONE (13:44)
[2018-10-15] MEDS ORDERED: ETOMIDATE 20 MG/10 ML AMPUL IVPUSH ONE (13:45)
[2018-10-15] MEDS ORDERED: ceFAZolin SODIUM 1 GM VIAL IVPB ONE (14:24)
[2018-10-15] MEDS ORDERED: LIDOCAINE HCL 1%, 10 MG/ML (20ML VIAL) INF ONE ×2 (14:34)
--- NOTE | 2018-10-15 14:43 | PN ---
Progress Note (short form) - Note Progress Note: Renal follow up for BRET Pt seen and examined at the bedside awake and alert no acute complaints no overt shortness of breath on NC O2 for tunneled dialysis cather placement today Vital Signs Temperature 97.4 F L 10/15/18 10:00 Pulse Rate 61 10/15/18 10:00 Respiratory Rate 24 H 10/15/18 10:00 Blood Pressure 154/67 10/15/18 10:00 O2 Sat by Pulse Oximetry (%) 93 L 10/14/18 22:00 Intake & Output 10/12/18 10/13/18 10/14/18 10/15/18 23:59 23:59 23:59 23:59 Intake Total 600 780 980 10 Output Total 300 300 Balance 300 480 980 10 Weight 74.661 kg 73.119 kg 73.663 kg 74.117 kg NAD RRR, no M/R BS improved, CTA 1+ edema in LE CBC, BMP 10/12/18 05:40 10/15/18 06:30 Current Medications Albumin Human (Albumin Human 25%) 12.5 gm IVPB Q30M [facility] Atorvastatin Calcium (Lipitor -) 20 mg PO HS [facility] Last Admin: 10/14/18 21:58 Dose: 20 mg Calcium Acetate (Phoslo -) 667 mg PO TIDCM [facility] Last Admin: 10/15/18 10:34 Dose: Not Given Clopidogrel Bisulfate (Plavix -) 75 mg PO DAILY [facility] Heparin Sodium (Porcine) (Heparin -) 5,000 unit SQ TID [facility] Last Admin: 10/15/18 05:58 Dose: 5,000 unit Sodium Chloride (Normal Saline -) 250 mls @ 3,000 mls/hr IV PRN PRN PRN Reason: Hypotension during Dialysis Stop: 10/13/18 07:40 Insulin Aspart (Novolog Vial Sliding Scale -) 1 vial SQ [facility]; Protocol Last Admin: 10/15/18 06:29 Dose: Not Given Insulin Aspart (Novolog) 20 units SQ ONCE ONE Stop: 10/15/18 22:06 Last Admin: 10/14/18 22:05 Dose: 20 units Insulin Detemir (Levemir Vial) 12 units SQ HS [facility] Last Admin: 10/14/18 21:58 Dose: 12 units Isosorbide Mononitrate (Imdur -) 60 mg PO DAILY [facility] Last Admin: 10/15/18 10:44 Dose: 60 mg Labetalol HCl (Normodyne -) 400 mg PO BID [facility] Last Admin: 10/14/18 21:59 Dose: 400 mg Melatonin (Melatonin) 5 mg PO HS PRN PRN Reason: INSOMNIA Methadone HCl 40 mg/ Methadone (HCl 20 mg) 60 mg PO DAILY@0600 [facility] Last Admin: 10/15/18 05:58 Dose: 60 mg Nifedipine (Procardia Xl -) 90 mg PO BID [facility] Last Admin: 10/14/18 21:59 Dose: 90 mg Pantoprazole Sodium (Protonix -) 40 mg PO DAILY [facility] Last Admin: 10/15/18 10:39 Dose: 40 mg Prednisone (Deltasone -) 20 mg PO DAILY [facility] Last Admin: 10/15/18 10:43 Dose: 20 mg Torsemide (Demadex -) 80 mg PO DAILY [facility] Last Admin: 10/15/18 10:43 Dose: 80 mg 68 year old gentleman with hx of of hypertension, DM on insulin, PVD s/ p Le stents, BPH, Hx of Lung cancer s/p resection who presented with SOB and noted to have BUN/Cr of 79/3.2. 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 Tubular atrophy and interstitial fibrosis, moderate. Proximal tubular degenerative and regenerative changes. Arteriosclerosis, moderate to severe. UPCR is 3.2, CHICHI negative, ANCA is negative, anti-histone ab is moderate positive would avoid any further hydrazine use given positive anti-histone Ab Renal imaging showed no obstruction start torsemide 80mg daily starting tomorrow Dariusz Iniguez DO
[2018-10-15] MEDS ORDERED: HEPARIN NA (PORCINE) 5,000 UNITS/ML 1ML VIAL SQ ONE ×2 (14:52)
--- NOTE | 2018-10-15 15:12 | OP ---
Operative Note - Note: Operative Date: 10/15/18 Pre-Operative Diagnosis: ESRD Operation: Insertion of permacath Post-Operative Diagnosis: Same as Pre-op Surgeon: Moiz Yu Anesthesia: Fractional Estimated Blood Loss (mls): 20 Operative Report Dictated: Yes
[2018-10-15] MEDS ORDERED: ONDANSETRON 4 MG/2 ML VIAL IVPUSH PRN (15:24)
[2018-10-15] MEDS ORDERED: MELATONIN 5 MG TABLETS PO PRN (15:42)
[2018-10-15] MEDS ORDERED: SODIUM CHLORIDE 250 ML IV PRN (15:42)
[2018-10-15] MEDS ORDERED: ALBUMIN HUMAN 25% 12.5 GM/50 ML VIAL IVPB SCH (16:00)
[2018-10-15] MEDS ORDERED: INSULIN (NOVOLOG) ASPART 100 UNITS/ML 10ML VIAL ONE (18:21)
--- NOTE | 2018-10-15 19:53 | OP ---
DATE OF OPERATION: 10/15/2018 PREOPERATIVE DIAGNOSIS: End-stage renal disease. POSTOPERATIVE DIAGNOSIS: End-stage renal disease. PROCEDURE: Insertion of PermCath. SURGEON: Moiz Murray DO ANESTHESIA: Fractional. BLOOD LOSS: 20 mL. The patient is a 68-year-old male who has end-stage renal disease. He had a Trialysis catheter removed from his neck on Monday, and now, he needs a PermCath. Patient was consented for the procedure, understanding all risks, benefits, and alternatives, then taken to the operating room. Once in the operating room, he was laid on the operative table in supine manner, and the area of the right neck and chest were prepped and draped in a sterile surgical manner. We then went ahead, and under ultrasound guidance, visualized the right internal jugular vein, and 10 mL of lidocaine 1% was injected there. We then took our micropuncture needle and punctured the right IJ. Micropuncture wire was inserted. Micropuncture sheath was inserted. A 0.035 floppy guidewire was inserted under fluoroscopy. We then injected 10 mL of lidocaine 1% above and below the clavicle. We then used an 11 blade and made a 1-cm incision at the puncture site. We then used a 15 blade and made a 1-cm incision below the clavicle. We then tunneled the PermCath up to the puncture site. We then used our break-away sheath, placed it over the guidewire into the vein under fluoroscopy, and the cannula and guidewire were removed. Catheter was placed inside the sheath. Sheath was broken away as the catheter was placed inside the vein. Neck of the catheter was nice and smooth. Tip of the catheter was located inside the right atrium. We then ellie back on each port of the catheter, and there was good flow. Heparinized saline was injected, 2000 units of IV heparin were injected into each port; 4-0 Biosyn was used, and 2 simple sutures were placed at the puncture site, 3-0 nylon used, and the catheter was to the skin. Biopatch, Steri-Strips, 4 x 4, and Tegaderm were placed. The patient tolerated the procedure with no complication. Patient transferred to PACU in stable condition where a chest x-ray will be ordered. MOIZ MURRAY DO [employer]/[id number]
[2018-10-15] MEDS: INSULIN (LEVEMIR) 100 UNITS/ML UNITS SQ SCH (22:23)
[2018-10-15] MEDS: LABETALOL HCL 200 MG TABLET (FP) PO SCH (22:24)
[2018-10-15] MEDS: ATORVASTATIN CA 20 MG TABLET (FP) PO SCH (22:25)
[2018-10-15] MEDS: NIFEdipine E.R. 90 MG TABLET (FP) PO SCH (22:25)
[2018-10-16] MEDS: Insulin (LOG) Aspart 100 UNITS/ML VIAL SQ ONE (03:28)
[2018-10-16] MEDS ORDERED: METHADONE HCL 40 MG DISPERSABLE TABLET ONE (04:53)
[2018-10-16] MEDS ORDERED: METHADONE HCL 10 MG TABLET ONE (04:54)
[2018-10-16] MEDS: METHADONE 40 MG, METHADONE 20 MG PO SCH (06:26)
[2018-10-16] MEDS: HEPARIN NA (PORCINE) 5,000 UNITS/ML 1ML VIAL SQ SCH ×3 (06:27→21:48)
[2018-10-16] MEDS: INSULIN SLIDING SCALE (NOVOLOG) 1 VIAL SQ SCH ×4 (06:39→21:46)
--- NOTE | 2018-10-16 08:49 | PN ---
HC Provider Note Provider Note: Anesthesia post-op note Pt seen s/p MAC for perm-a-cath placement Pt awake alert sitting up in bed Pt tolerating po, no n/v Pt denies puritis, SOB Ambulating well VSS no apparent anesthesia complications Sybil Alba.
[2018-10-16] MEDS: TORSEMIDE 20 MG TABLET (FP) PO SCH (09:51)
[2018-10-16] MEDS: PANTOPRAZOLE 40 MG TABLET (FP) PO SCH (09:52)
[2018-10-16] MEDS: NIFEdipine E.R. 90 MG TABLET (FP) PO SCH ×2 (09:52→21:46)
[2018-10-16] MEDS: CLOPIDOGREL BISULFATE 75 MG TABLET (FP) PO SCH (09:52)
[2018-10-16] MEDS: CALCIUM ACETATE 667 MG CAPSULE (FP) PO SCH ×3 (09:52→17:27)
[2018-10-16] MEDS: predniSONE 10 MG TABLET (UD) PO SCH (09:52)
[2018-10-16] MEDS: LABETALOL HCL 200 MG TABLET (FP) PO SCH ×2 (09:52→21:46)
[2018-10-16] MEDS: ISOSORBIDE MONONITRATE 60 MG TAB.SR.24H (FP) PO SCH (09:52)
--- NOTE | 2018-10-16 09:57 | PN ---
Progress Note (short form) - Note Progress Note: POD 1, s/p PC insertion Pt doing well. No complaints. Has not received HD yet however reports he was told he would be getting HD later today. Contact surgery if any issues. 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 Call [phone] for appointment d/w attending Dr Yu
[2018-10-16] MEDS ORDERED: CLOPIDOGREL BISULFATE 75 MG TABLET (FP) PO SCH (10:00)
--- NOTE | 2018-10-16 11:06 | PN ---
Progress Note, Physician History of Present Illness: PULMONARY ALERT,COMFORTABLE,-RESP DISTRESS ON NASAL CANNULA - Current Medication List Current Medications: Active Medications Atorvastatin Calcium (Lipitor -) 20 mg PO HS [facility] Last Admin: 10/15/18 22:25 Dose: 20 mg Calcium Acetate (Phoslo -) 667 mg PO TIDCM [facility] Last Admin: 10/16/18 09:52 Dose: 667 mg Clopidogrel Bisulfate (Plavix -) 75 mg PO DAILY [facility] Last Admin: 10/16/18 09:52 Dose: 75 mg Heparin Sodium (Porcine) (Heparin -) 5,000 unit SQ TID [facility] Last Admin: 10/16/18 06:27 Dose: 5,000 unit Sodium Chloride (Normal Saline -) 250 mls @ 3,000 mls/hr IV PRN PRN PRN Reason: Hypotension during Dialysis Insulin Aspart (Novolog Vial Sliding Scale -) 1 vial SQ ACHS [facility]; Protocol Last Admin: 10/16/18 06:39 Dose: Not Given Insulin Detemir (Levemir Vial) 12 units SQ HS [facility] Last Admin: 10/15/18 22:23 Dose: 12 units Isosorbide Mononitrate (Imdur -) 60 mg PO DAILY [facility] Last Admin: 10/16/18 09:52 Dose: 60 mg Labetalol HCl (Normodyne -) 400 mg PO BID [facility] Last Admin: 10/16/18 09:52 Dose: 400 mg Melatonin (Melatonin) 5 mg PO HS PRN PRN Reason: INSOMNIA Methadone HCl 40 mg/ Methadone (HCl 20 mg) 60 mg PO DAILY@0600 [facility] Last Admin: 10/16/18 06:26 Dose: 60 mg Nifedipine (Procardia Xl -) 90 mg PO BID [facility] Last Admin: 10/16/18 09:52 Dose: 90 mg Ondansetron HCl (Zofran Injection) 4 mg IVPUSH Q6H PRN PRN Reason: NAUSEA AND/OR VOMITING Stop: 10/16/18 15:23 Pantoprazole Sodium (Protonix -) 40 mg PO DAILY [facility] Last Admin: 10/16/18 09:52 Dose: 40 mg Prednisone (Deltasone -) 20 mg PO DAILY [facility] Last Admin: 10/16/18 09:52 Dose: 20 mg Torsemide (Demadex -) 80 mg PO DAILY [facility] Last Admin: 10/16/18 09:51 Dose: 80 mg - Objective Vital Signs: Vital Signs Temperature 97.7 F 10/16/18 10:00 Pulse Rate 63 10/16/18 10:00 Respiratory Rate 18 10/16/18 10:00 Blood Pressure 150/61 10/16/18 10:00 O2 Sat by Pulse Oximetry (%) 99 10/15/18 22:00 Constitutional: Yes: Well Nourished, Calm Eyes: Yes: WNL HENT: Yes: WNL Neck: Yes: WNL Cardiovascular: Yes: Regular Rate and Rhythm, S1, S2 Respiratory: Yes: Rales (bibasilar crackles) Gastrointestinal: Yes: Normal Bowel Sounds, Soft Extremities: Yes: WNL Edema: No Labs: CBC, BMP 10/12/18 05:40 10/15/18 06:30 INR, PTT INR 1.11 (0.83-1.09) H 09/17/18 12:23 Problem List - Problems (1) [id number] kidney injury Code(s): N17.9 - ACUTE KIDNEY FAILURE, UNSPECIFIED; N18.9 - CHRONIC KIDNEY DISEASE, UNSPECIFIED (2) CHF exacerbation Code(s): I50.9 - HEART FAILURE, UNSPECIFIED (3) Chronic renal insufficiency, stage III (moderate) Code(s): N18.3 - CHRONIC KIDNEY DISEASE, STAGE 3 (MODERATE) (4) Diabetes Code(s): E11.9 - TYPE 2 DIABETES MELLITUS WITHOUT COMPLICATIONS (5) History of lung cancer Code(s): Z85.118 - PERSONAL HISTORY OF MALIGNANT NEOPLASM OF BRONCHUS AND LUNG (6) Normocytic anemia Code(s): D64.9 - ANEMIA, UNSPECIFIED (7) Dyspnea Code(s): R06.00 - DYSPNEA, UNSPECIFIED (8) Acute and chronic respiratory failure Code(s): J96.20 - ACUTE AND CHR RESP FAILURE, UNSP W HYPOXIA OR HYPERCAPNIA (9) Pneumonia Code(s): J18.9 - PNEUMONIA, UNSPECIFIED ORGANISM Assessment/Plan A/P Acute Hypoxic Respiratory Failure improving r/o Acute Pneumonitis/Interstitial Lung Disease r/o Pneumonia Acute on Chronic Diastolic Heart Failure Acute on Chronic Renal Failure requiring HD h/o Lung Ca HTN DM - prednisone - inhaled bronchodilators - HD per renal - O2 to keep SpO2 >90% - DVT prophylaxis - chest x-ray DR MARIE
--- NOTE | 2018-10-16 11:16 | PN ---
Progress Note (short form) - Note Progress Note: s: no chest pain, palps, dyspnea. Has been walking more with PT Current Medications Atorvastatin Calcium (Lipitor -) 20 mg PO HS [facility] Last Admin: 10/15/18 22:25 Dose: 20 mg Calcium Acetate (Phoslo -) 667 mg PO TIDCM [facility] Last Admin: 10/16/18 09:52 Dose: 667 mg Clopidogrel Bisulfate (Plavix -) 75 mg PO DAILY [facility] Last Admin: 10/16/18 09:52 Dose: 75 mg Epoetin Guru (Epogen -) 20,000 unit IVPUSH ONCE ONE Stop: 10/16/18 11:13 Heparin Sodium (Porcine) (Heparin -) 5,000 unit SQ TID [facility] Last Admin: 10/16/18 06:27 Dose: 5,000 unit Sodium Chloride (Normal Saline -) 250 mls @ 3,000 mls/hr IV PRN PRN PRN Reason: Hypotension during Dialysis Sodium Chloride (Normal Saline -) 250 mls @ 3,000 mls/hr IV PRN PRN PRN Reason: Hypotension during Dialysis Stop: 10/17/18 11:12 Insulin Aspart (Novolog Vial Sliding Scale -) 1 vial SQ [facility]; Protocol Last Admin: 10/16/18 06:39 Dose: Not Given Insulin Detemir (Levemir Vial) 12 units SQ HS [facility] Last Admin: 10/15/18 22:23 Dose: 12 units Isosorbide Mononitrate (Imdur -) 60 mg PO DAILY [facility] Last Admin: 10/16/18 09:52 Dose: 60 mg Labetalol HCl (Normodyne -) 400 mg PO BID [facility] Last Admin: 10/16/18 09:52 Dose: 400 mg Melatonin (Melatonin) 5 mg PO HS PRN PRN Reason: INSOMNIA Methadone HCl 40 mg/ Methadone (HCl 20 mg) 60 mg PO DAILY@0600 [facility] Last Admin: 10/16/18 06:26 Dose: 60 mg Nifedipine (Procardia Xl -) 90 mg PO BID [facility] Last Admin: 10/16/18 09:52 Dose: 90 mg Ondansetron HCl (Zofran Injection) 4 mg IVPUSH Q6H PRN PRN Reason: NAUSEA AND/OR VOMITING Stop: 10/16/18 15:23 Pantoprazole Sodium (Protonix -) 40 mg PO DAILY [facility] Last Admin: 10/16/18 09:52 Dose: 40 mg Prednisone (Deltasone -) 20 mg PO DAILY [facility] Last Admin: 10/16/18 09:52 Dose: 20 mg Torsemide (Demadex -) 80 mg PO DAILY [facility] Last Admin: 10/16/18 09:51 Dose: 80 mg Vital Signs Period Temp Pulse Resp BP Sys/Bansal Pulse Ox Last 24 Hr 97.7 F-98.7 F 62-76 16-20 150-177/59-85 94-99 Constitutional: Yes: No Distress Cardiovascular: Yes: Regular Rate and Rhythm Respiratory: Yes: CTA Bilaterally Gastrointestinal: Yes: Soft Edema: Yes Edema: LLE: 1+, RLE: 1+ Neurological: Yes: Alert, Oriented no jaundice, diaphoresis not agitated - ....Imaging EKG: Image Reviewed Assessment/Plan EKG: sinus, PVC, no ischemic changes echo 09/2018 nl LV function, mild MAC, tr MR, RVSP 32 mmHg tele: sinus, PVCs 68M h/o HTN, DM, HLD, PAD s/p femoral stent, prior smoker, R sided lung ca s/p partial resection p/w shortness of breath: Shortness of breath, PNA, acute diastolic CHF exacerbation: - likely multifactorial - h/o lung ca s/p resection, findings concerning for PNA - Pulmonary following, steroid taper - elevated BNP (7K) with congestion on CXR, likely component of HF - echo nl LV function, remainder unremarkable, no pulm HTN noted - torsemide per renal, continue HTN with htn urgency: - on Imdur, Labetalol, Nifedipine, continue BRET on CKD: started on HD -s/p kidney bx -manage per renal, s/p permacath placement HLD: - cont statin PAD: - cont statin, plavix restarted
--- NOTE | 2018-10-16 13:07 | PN ---
Progress Note (short form) - Note Progress Note: Renal follow up for BRET Pt seen and examined at the bedside awake and alert no acute complaints s/p tunneled HD catheter placement yesterday making urine for dialysis today Vital Signs Temperature 97.7 F 10/16/18 10:00 Pulse Rate 63 10/16/18 10:00 Respiratory Rate 18 10/16/18 10:00 Blood Pressure 150/61 10/16/18 10:00 O2 Sat by Pulse Oximetry (%) 99 10/15/18 22:00 Intake & Output 10/13/18 10/14/18 10/15/18 10/16/18 23:59 23:59 23:59 23:59 Intake Total 780 980 510 10 Output Total 300 920 700 Balance 480 980 -410 -690 Weight 73.119 kg 73.663 kg 74.117 kg 72.03 kg NAD RRR, no M/R BS improved, CTA 1+ edema in LE CBC, BMP 10/12/18 05:40 10/15/18 06:30 Current Medications Atorvastatin Calcium (Lipitor -) 20 mg PO HS [facility] Last Admin: 10/15/18 22:25 Dose: 20 mg Calcium Acetate (Phoslo -) 667 mg PO TIDCM [facility] Last Admin: 10/16/18 09:52 Dose: 667 mg Clopidogrel Bisulfate (Plavix -) 75 mg PO DAILY [facility] Last Admin: 10/16/18 09:52 Dose: 75 mg Epoetin Guru (Epogen -) 20,000 unit IVPUSH ONCE ONE Stop: 10/16/18 11:13 Heparin Sodium (Porcine) (Heparin -) 5,000 unit SQ TID [facility] Last Admin: 10/16/18 06:27 Dose: 5,000 unit Sodium Chloride (Normal Saline -) 250 mls @ 3,000 mls/hr IV PRN PRN PRN Reason: Hypotension during Dialysis Sodium Chloride (Normal Saline -) 250 mls @ 3,000 mls/hr IV PRN PRN PRN Reason: Hypotension during Dialysis Stop: 10/17/18 11:12 Insulin Aspart (Novolog Vial Sliding Scale -) 1 vial SQ ACHS [facility]; Protocol Last Admin: 10/16/18 11:48 Dose: 4 units Insulin Detemir (Levemir Vial) 12 units SQ HS [facility] Last Admin: 10/15/18 22:23 Dose: 12 units Isosorbide Mononitrate (Imdur -) 60 mg PO DAILY [facility] Last Admin: 10/16/18 09:52 Dose: 60 mg Labetalol HCl (Normodyne -) 400 mg PO BID [facility] Last Admin: 10/16/18 09:52 Dose: 400 mg Melatonin (Melatonin) 5 mg PO HS PRN PRN Reason: INSOMNIA Methadone HCl 40 mg/ Methadone (HCl 20 mg) 60 mg PO DAILY@0600 [facility] Last Admin: 10/16/18 06:26 Dose: 60 mg Nifedipine (Procardia Xl -) 90 mg PO BID [facility] Last Admin: 10/16/18 09:52 Dose: 90 mg Ondansetron HCl (Zofran Injection) 4 mg IVPUSH Q6H PRN PRN Reason: NAUSEA AND/OR VOMITING Stop: 10/16/18 15:23 Pantoprazole Sodium (Protonix -) 40 mg PO DAILY [facility] Last Admin: 10/16/18 09:52 Dose: 40 mg Prednisone (Deltasone -) 20 mg PO DAILY [facility] Last Admin: 10/16/18 09:52 Dose: 20 mg Torsemide (Demadex -) 80 mg PO DAILY [facility] Last Admin: 10/16/18 09:51 Dose: 80 mg 68 year old gentleman with hx of of hypertension, DM on insulin, PVD s/ p Le stents, BPH, Hx of Lung cancer s/p resection who presented with SOB and noted to have BUN/Cr of 79/3.2. 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 Tubular atrophy and interstitial fibrosis, moderate. Proximal tubular degenerative and regenerative changes. Arteriosclerosis, moderate to severe. UPCR is 3.2, CHICHI negative, ANCA is negative, anti-histone ab is moderate positive would avoid any further hydrazine use given positive anti-histone Ab Renal imaging showed no obstruction torsemide 80mg daily discharge planning as per primary Dariusz Iniguez DO
[2018-10-16] MEDS ORDERED: SODIUM CHLORIDE 250 ML IV PRN (13:37)
--- NOTE | 2018-10-16 13:43 | PN ---
Progress Note (short form) - Note Progress Note: events noted awake and alert s/p permacath Vital Signs - 24 hr 10/15/18 10/15/18 10/15/18 15:04 15:20 15:35 Temperature 98.7 F Pulse Rate 70 64 63 Respiratory 16 18 18 Rate Blood Pressure 170/59 L 162/60 160/59 L O2 Sat by Pulse 94 L 97 95 Oximetry (%) 10/15/18 10/15/18 10/15/18 15:50 16:05 16:20 Temperature Pulse Rate 63 62 64 Respiratory 18 18 18 Rate Blood Pressure 169/64 155/65 169/66 O2 Sat by Pulse 96 96 96 Oximetry (%) 10/15/18 10/15/18 10/15/18 16:35 16:50 17:00 Temperature 98.3 F 98.0 F Pulse Rate 66 66 72 Respiratory 18 18 20 Rate Blood Pressure 168/69 155/63 168/85 O2 Sat by Pulse 98 98 Oximetry (%) 10/15/18 10/15/18 10/16/18 21:00 22:00 02:00 Temperature 98.3 F 98.7 F Pulse Rate 76 62 Respiratory 20 20 Rate Blood Pressure 160/66 177/74 H O2 Sat by Pulse 96 99 Oximetry (%) 10/16/18 10/16/18 06:56 10:00 Temperature 97.7 F 97.7 F Pulse Rate 62 63 Respiratory 18 18 Rate Blood Pressure 168/62 150/61 O2 Sat by Pulse Oximetry (%) Current Medications Generic Name Dose Route Start Last Admin Trade Name Freq PRN Reason Stop Dose Admin Atorvastatin Calcium 20 mg 10/15/18 22:00 10/15/18 22:25 Lipitor - PO 20 mg HS GREGORY Administration Calcium Acetate 667 mg 10/15/18 17:30 10/16/18 13:20 Phoslo - PO 667 mg TIDCM GREGORY Administration Clopidogrel Bisulfate 75 mg 10/16/18 10:00 10/16/18 09:52 Plavix - PO 75 mg DAILY GREGORY Administration Epoetin Guru 20,000 unit 10/16/18 13:45 Procrit - IVPUSH 10/16/18 13:46 ONCE ONE Heparin Sodium (Porcine) 5,000 unit 10/15/18 22:00 10/16/18 06:27 Heparin - SQ 5,000 unit TID GREGORY Administration Sodium Chloride 250 mls @ 3,000 mls/hr 10/16/18 13:37 Normal Saline - IV 10/17/18 13:36 PRN PRN Hypotension during Dialysis Insulin Aspart 1 vial 10/15/18 16:30 10/16/18 11:48 Novolog Vial Sliding Scale - SQ 4 units ACHS GREGORY Administration Protocol Insulin Detemir 12 units 10/15/18 22:00 10/15/18 22:23 Levemir Vial SQ 12 units HS GREGORY Administration Isosorbide Mononitrate 60 mg 10/16/18 10:00 10/16/18 09:52 Imdur - PO 60 mg DAILY GREGORY Administration Labetalol HCl 400 mg 10/15/18 22:00 10/16/18 09:52 Normodyne - PO 400 mg BID GREGORY Administration Melatonin 5 mg 10/15/18 15:42 Melatonin PO HS PRN INSOMNIA Methadone HCl 40 mg/ Methadone 60 mg 10/16/18 06:00 10/16/18 06:26 HCl 20 mg PO 60 mg DAILY@0600 GREGORY Administration Nifedipine 90 mg 10/15/18 22:00 10/16/18 09:52 Procardia Xl - PO 90 mg BID GREGORY Administration Ondansetron HCl 4 mg 10/15/18 15:24 Zofran Injection IVPUSH 10/16/18 15:23 Q6H PRN NAUSEA AND/OR VOMITING Pantoprazole Sodium 40 mg 10/16/18 10:00 10/16/18 09:52 Protonix - PO 40 mg DAILY GREGORY Administration Prednisone 20 mg 10/16/18 10:00 10/16/18 09:52 Deltasone - PO 20 mg DAILY GREGORY Administration Torsemide 80 mg 10/16/18 10:00 10/16/18 09:51 Demadex - PO 80 mg DAILY GREGORY Administration Laboratory Results - last 24 hr 10/15/18 10/15/18 10/16/18 17:28 21:59 06:29 POC Glucometer 201 327 104 10/16/18 11:43 POC Glucometer 233 S1 s2 RRR Lungs decreased breath sounds abd- soft, NT edema decreased PLAN CHF--on HD off antibiotics on prednisone Hep C ab positive, RNA PCR NOT DETECTED Dialysis per renal -- will need access OOB daily ambulating better now needs O2 HD per renal clinically improving Problem List - Problems (1) BRET (acute kidney injury) Code(s): N17.9 - ACUTE KIDNEY FAILURE, UNSPECIFIED (2) Acute and chronic respiratory failure Code(s): J96.20 - ACUTE AND CHR RESP FAILURE, UNSP W HYPOXIA OR HYPERCAPNIA (3) [id number]-dhlwgem kidney injury Code(s): N17.9 - ACUTE KIDNEY FAILURE, UNSPECIFIED; N18.9 - CHRONIC KIDNEY DISEASE, UNSPECIFIED (4) CHF exacerbation Code(s): I50.9 - HEART FAILURE, UNSPECIFIED (5) Diabetes Code(s): E11.9 - TYPE 2 DIABETES MELLITUS WITHOUT COMPLICATIONS
[2018-10-16] MEDS ORDERED: EPOETIN ALFA 20,000 UNIT/1 ML VIAL IVPUSH ONE (13:45)
[2018-10-16] MEDS: ATORVASTATIN CA 20 MG TABLET (FP) PO SCH (21:46)
[2018-10-16] MEDS: INSULIN (LEVEMIR) 100 UNITS/ML UNITS SQ SCH (21:48)
[2018-10-17] MEDS ORDERED: METHADONE HCL 40 MG DISPERSABLE TABLET ONE (06:00)
[2018-10-17] MEDS ORDERED: METHADONE HCL 10 MG TABLET ONE (06:01)
[2018-10-17] MEDS: INSULIN SLIDING SCALE (NOVOLOG) 1 VIAL SQ SCH ×4 (06:05→22:24)
[2018-10-17] MEDS: HEPARIN NA (PORCINE) 5,000 UNITS/ML 1ML VIAL SQ SCH ×3 (06:06→22:24)
[2018-10-17] MEDS: METHADONE 40 MG, METHADONE 20 MG PO SCH (06:06)
[2018-10-17] MEDS: CALCIUM ACETATE 667 MG CAPSULE (FP) PO SCH ×3 (08:23→17:39)
[2018-10-17] MEDS: predniSONE 10 MG TABLET (UD) PO SCH (10:23)
[2018-10-17] MEDS: TORSEMIDE 20 MG TABLET (FP) PO SCH (10:24)
[2018-10-17] MEDS: ISOSORBIDE MONONITRATE 60 MG TAB.SR.24H (FP) PO SCH (10:24)
[2018-10-17] MEDS: LABETALOL HCL 200 MG TABLET (FP) PO SCH ×2 (10:27→22:21)
[2018-10-17] MEDS: CLOPIDOGREL BISULFATE 75 MG TABLET (FP) PO SCH (10:27)
[2018-10-17] MEDS: NIFEdipine E.R. 90 MG TABLET (FP) PO SCH ×2 (10:28→22:21)
[2018-10-17] MEDS: PANTOPRAZOLE 40 MG TABLET (FP) PO SCH (10:28)
--- NOTE | 2018-10-17 10:38 | PN ---
Progress Note, Physician History of Present Illness: pulmonary alert,oob-chair,comfortable at rest,+ khalil. o2 sat 95 on 4lnc - Current Medication List Current Medications: Active Medications Atorvastatin Calcium (Lipitor -) 20 mg PO HS [facility] Last Admin: 10/16/18 21:46 Dose: 20 mg Calcium Acetate (Phoslo -) 667 mg PO TIDCM [facility] Last Admin: 10/17/18 08:23 Dose: 667 mg Clopidogrel Bisulfate (Plavix -) 75 mg PO DAILY [facility] Last Admin: 10/17/18 10:27 Dose: 75 mg Heparin Sodium (Porcine) (Heparin -) 5,000 unit SQ TID [facility] Last Admin: 10/17/18 06:06 Dose: 5,000 unit Sodium Chloride (Normal Saline -) 250 mls @ 3,000 mls/hr IV PRN PRN PRN Reason: Hypotension during Dialysis Stop: 10/17/18 13:36 Insulin Aspart (Novolog Vial Sliding Scale -) 1 vial SQ [facility], [facility]; Protocol Last Admin: 10/17/18 06:05 Dose: Not Given Insulin Detemir (Levemir Vial) 12 units SQ HS [facility] Last Admin: 10/16/18 21:48 Dose: 12 units Isosorbide Mononitrate (Imdur -) 60 mg PO DAILY [facility] Last Admin: 10/17/18 10:24 Dose: 60 mg Labetalol HCl (Normodyne -) 400 mg PO BID [facility] Last Admin: 10/17/18 10:27 Dose: 400 mg Melatonin (Melatonin) 5 mg PO HS PRN PRN Reason: INSOMNIA Methadone HCl 40 mg/ Methadone (HCl 20 mg) 60 mg PO DAILY@0600 [facility] Last Admin: 10/17/18 06:06 Dose: 60 mg Nifedipine (Procardia Xl -) 90 mg PO BID [facility] Last Admin: 10/17/18 10:28 Dose: 90 mg Pantoprazole Sodium (Protonix -) 40 mg PO DAILY [facility] Last Admin: 10/17/18 10:28 Dose: 40 mg Prednisone (Deltasone -) 20 mg PO DAILY [facility] Last Admin: 10/17/18 10:23 Dose: 20 mg Torsemide (Demadex -) 80 mg PO DAILY [facility] Last Admin: 10/17/18 10:24 Dose: 80 mg - Objective Vital Signs: Vital Signs Temperature 98.2 F 10/17/18 06:00 Pulse Rate 65 10/17/18 06:00 Respiratory Rate 18 10/17/18 06:00 Blood Pressure 143/69 10/17/18 06:00 O2 Sat by Pulse Oximetry (%) 96 10/16/18 22:00 Constitutional: Yes: Well Nourished, Calm Eyes: Yes: WNL HENT: Yes: WNL Neck: Yes: WNL Cardiovascular: Yes: Regular Rate and Rhythm, S1, S2 Respiratory: Yes: CTA Bilaterally Gastrointestinal: Yes: Normal Bowel Sounds, Soft Extremities: Yes: WNL Edema: No Labs: CBC, BMP INR, PTT INR 1.11 (0.83-1.09) H 09/17/18 12:23 Problem List - Problems (1) [id number] kidney injury Code(s): N17.9 - ACUTE KIDNEY FAILURE, UNSPECIFIED; N18.9 - CHRONIC KIDNEY DISEASE, UNSPECIFIED (2) CHF exacerbation Code(s): I50.9 - HEART FAILURE, UNSPECIFIED (3) Chronic renal insufficiency, stage III (moderate) Code(s): N18.3 - CHRONIC KIDNEY DISEASE, STAGE 3 (MODERATE) (4) Diabetes Code(s): E11.9 - TYPE 2 DIABETES MELLITUS WITHOUT COMPLICATIONS (5) History of lung cancer Code(s): Z85.118 - PERSONAL HISTORY OF MALIGNANT NEOPLASM OF BRONCHUS AND LUNG (6) Normocytic anemia Code(s): D64.9 - ANEMIA, UNSPECIFIED (7) Dyspnea Code(s): R06.00 - DYSPNEA, UNSPECIFIED (8) Acute and chronic respiratory failure Code(s): J96.20 - ACUTE AND CHR RESP FAILURE, UNSP W HYPOXIA OR HYPERCAPNIA (9) Pneumonia Code(s): J18.9 - PNEUMONIA, UNSPECIFIED ORGANISM Assessment/Plan A/P Acute Hypoxic Respiratory Failure improving r/o Acute Pneumonitis/Interstitial Lung Disease r/o Pneumonia Acute on Chronic Diastolic Heart Failure Acute on Chronic Renal Failure requiring HD h/o Lung Ca HTN DM - prednisone - inhaled bronchodilators - HD per renal - O2 to keep SpO2 >90% - DVT prophylaxis DR MARIE
--- NOTE | 2018-10-17 11:11 | PN ---
Progress Note (short form) - Note Progress Note: s: no chest pain, palps, dyspnea. Current Medications Atorvastatin Calcium (Lipitor -) 20 mg PO HS [facility] Last Admin: 10/16/18 21:46 Dose: 20 mg Calcium Acetate (Phoslo -) 667 mg PO TIDCM [facility] Last Admin: 10/17/18 08:23 Dose: 667 mg Clopidogrel Bisulfate (Plavix -) 75 mg PO DAILY [facility] Last Admin: 10/17/18 10:27 Dose: 75 mg Heparin Sodium (Porcine) (Heparin -) 5,000 unit SQ TID [facility] Last Admin: 10/17/18 06:06 Dose: 5,000 unit Sodium Chloride (Normal Saline -) 250 mls @ 3,000 mls/hr IV PRN PRN PRN Reason: Hypotension during Dialysis Stop: 10/17/18 13:36 Insulin Aspart (Novolog Vial Sliding Scale -) 1 vial SQ [facility]; Protocol Last Admin: 10/17/18 06:05 Dose: Not Given Insulin Detemir (Levemir Vial) 12 units SQ HS [facility] Last Admin: 10/16/18 21:48 Dose: 12 units Isosorbide Mononitrate (Imdur -) 60 mg PO DAILY [facility] Last Admin: 10/17/18 10:24 Dose: 60 mg Labetalol HCl (Normodyne -) 400 mg PO BID [facility] Last Admin: 10/17/18 10:27 Dose: 400 mg Melatonin (Melatonin) 5 mg PO HS PRN PRN Reason: INSOMNIA Methadone HCl 40 mg/ Methadone (HCl 20 mg) 60 mg PO DAILY@0600 [facility] Last Admin: 10/17/18 06:06 Dose: 60 mg Nifedipine (Procardia Xl -) 90 mg PO BID [facility] Last Admin: 10/17/18 10:28 Dose: 90 mg Pantoprazole Sodium (Protonix -) 40 mg PO DAILY [facility] Last Admin: 10/17/18 10:28 Dose: 40 mg Prednisone (Deltasone -) 20 mg PO DAILY [facility] Last Admin: 10/17/18 10:23 Dose: 20 mg Torsemide (Demadex -) 80 mg PO DAILY [facility] Last Admin: 10/17/18 10:24 Dose: 80 mg Vital Signs Period Temp Pulse Resp BP Sys/Bansal Pulse Ox Last 24 Hr 97.8 F-98.4 F 58-69 18-20 113-168/58-76 96-97 Constitutional: Yes: No Distress Cardiovascular: Yes: Regular Rate and Rhythm Respiratory: Yes: CTA Bilaterally Gastrointestinal: Yes: Soft Edema: Yes Edema: LLE: 1+, RLE: 1+ Neurological: Yes: Alert, Oriented no jaundice, diaphoresis not agitated - ....Imaging EKG: Image Reviewed Assessment/Plan EKG: sinus, PVC, no ischemic changes echo 09/2018 nl LV function, mild MAC, tr MR, RVSP 32 mmHg tele: sinus, PVCs 68M h/o HTN, DM, HLD, PAD s/p femoral stent, prior smoker, R sided lung ca s/p partial resection p/w shortness of breath: Shortness of breath, PNA, acute diastolic CHF exacerbation: - likely multifactorial - h/o lung ca s/p resection, findings concerning for PNA - Pulmonary following, steroid taper - elevated BNP (7K) with congestion on CXR, likely component of HF - echo nl LV function, remainder unremarkable, no pulm HTN noted - torsemide, HD per renal, continue HTN with htn urgency: - on Imdur, Labetalol, Nifedipine, continue BRET on CKD: started on HD -s/p kidney bx -manage per renal, s/p permacath placement HLD: - cont statin PAD: - cont statin, plavix restarted
--- NOTE | 2018-10-17 12:19 | PN ---
Progress Note (short form) - Note Progress Note: events noted awake and alert s/p permacath states that he gets weak while ambulating with PT Vital Signs - 24 hr 10/16/18 10/16/18 10/16/18 12:25 12:30 13:00 Temperature 98.4 F Pulse Rate 60 61 61 Respiratory 18 18 18 Rate Blood Pressure 135/62 142/68 149/68 O2 Sat by Pulse Oximetry (%) 10/16/18 10/16/18 10/16/18 13:30 14:00 14:30 Temperature 97.8 F Pulse Rate 60 62 58 L Respiratory 18 18 18 Rate Blood Pressure 128/62 126/62 132/65 O2 Sat by Pulse Oximetry (%) 10/16/18 10/16/18 10/16/18 15:00 15:30 16:00 Temperature Pulse Rate 60 58 L 58 L Respiratory 18 18 18 Rate Blood Pressure 120/62 113/58 L 126/61 O2 Sat by Pulse Oximetry (%) 10/16/18 10/16/18 10/16/18 16:30 16:59 21:00 Temperature 98.2 F Pulse Rate 60 62 69 Respiratory 18 18 18 Rate Blood Pressure 129/61 132/68 168/76 O2 Sat by Pulse 97 Oximetry (%) 10/16/18 10/17/18 10/17/18 22:00 02:00 06:00 Temperature 98.4 F 98.2 F Pulse Rate 69 61 65 Respiratory 20 18 Rate Blood Pressure 152/59 L 143/69 O2 Sat by Pulse 96 Oximetry (%) Current Medications Generic Name Dose Route Start Last Admin Trade Name Freq PRN Reason Stop Dose Admin Atorvastatin Calcium 20 mg 10/15/18 22:00 10/16/18 21:46 Lipitor - PO 20 mg HS GREGORY Administration Calcium Acetate 667 mg 10/15/18 17:30 10/17/18 12:14 Phoslo - PO 667 mg TIDCM GREGORY Administration Clopidogrel Bisulfate 75 mg 10/16/18 10:00 10/17/18 10:27 Plavix - PO 75 mg DAILY GREGORY Administration Heparin Sodium (Porcine) 5,000 unit 10/15/18 22:00 10/17/18 06:06 Heparin - SQ 5,000 unit TID GREGORY Administration Sodium Chloride 250 mls @ 3,000 mls/hr 10/16/18 13:37 Normal Saline - IV 10/17/18 13:36 PRN PRN Hypotension during Dialysis Insulin Aspart 1 vial 10/15/18 16:30 10/17/18 11:53 Novolog Vial Sliding Scale - SQ 6 units ACHS GREGORY Administration Protocol Insulin Detemir 12 units 10/15/18 22:00 10/16/18 21:48 Levemir Vial SQ 12 units HS GREGORY Administration Isosorbide Mononitrate 60 mg 10/16/18 10:00 10/17/18 10:24 Imdur - PO 60 mg DAILY GREGORY Administration Labetalol HCl 400 mg 10/15/18 22:00 10/17/18 10:27 Normodyne - PO 400 mg BID GREGORY Administration Melatonin 5 mg 10/15/18 15:42 Melatonin PO HS PRN INSOMNIA Methadone HCl 40 mg/ Methadone 60 mg 10/16/18 06:00 10/17/18 06:06 HCl 20 mg PO 60 mg DAILY@0600 GREGORY Administration Nifedipine 90 mg 10/15/18 22:00 10/17/18 10:28 Procardia Xl - PO 90 mg BID GREGORY Administration Pantoprazole Sodium 40 mg 10/16/18 10:00 10/17/18 10:28 Protonix - PO 40 mg DAILY GREGORY Administration Prednisone 20 mg 10/16/18 10:00 10/17/18 10:23 Deltasone - PO 20 mg DAILY GREGORY Administration Torsemide 80 mg 10/16/18 10:00 10/17/18 10:24 Demadex - PO 80 mg DAILY GREGORY Administration Laboratory Results - last 24 hr 10/16/18 10/16/18 10/17/18 17:27 21:22 06:04 POC Glucometer 290 297 95 10/17/18 11:52 POC Glucometer 300 S1 s2 RRR Lungs decreased breath sounds abd- soft, NT edema decreased PLAN CHF--on HD - continue with torsemide off antibiotics on prednisone taper Hep C ab positive, RNA PCR NOT DETECTED OOB daily needs O2 HD per renal clinically improving O2 sat 95-96% 4 liters dc planning to rehab Problem List - Problems (1) BRET (acute kidney injury) Code(s): N17.9 - ACUTE KIDNEY FAILURE, UNSPECIFIED (2) Acute and chronic respiratory failure Code(s): J96.20 - ACUTE AND CHR RESP FAILURE, UNSP W HYPOXIA OR HYPERCAPNIA (3) [id number] kidney injury Code(s): N17.9 - ACUTE KIDNEY FAILURE, UNSPECIFIED; N18.9 - CHRONIC KIDNEY DISEASE, UNSPECIFIED (4) CHF exacerbation Code(s): I50.9 - HEART FAILURE, UNSPECIFIED (5) Diabetes Code(s): E11.9 - TYPE 2 DIABETES MELLITUS WITHOUT COMPLICATIONS
[2018-10-17 14:53] LABS: HEMATOCRIT 26.2 % (35.4-49); HEMOGLOBIN 8.5 GM/dL (11.7-16.9); MCH 29.1 pg (25.7-33.7); MCHC 32.2 g/dl (32.0-35.9); MEAN CELL VOLUME 90.2 fl (80-96); MEAN PLT VOLUME 8.2 fl (7.5-11.1); RBC 2.91 M/mm3 (4.00-5.60); RDW 17.5 % (11.9-15.9)
[2018-10-17 15:12] LABS: PLATELET COUNT 116 K/MM3 (134-434)
[2018-10-17 15:33] LABS: BLOOD UREA NITROGEN 47.5 mg/dL (7-18); CALCIUM 7.5 mg/dL (8.5-10.1); CREATININE 2.8 mg/dL (0.55-1.3)
--- NOTE | 2018-10-17 16:54 | PN ---
Progress Note (short form) - Note Progress Note: Renal follow up for BRET Pt seen and examined at the bedside no acute complaints no sob, cp, abd pain, fever, chills s/p dialysis yesterday Vital Signs Temperature 98.6 F 10/17/18 14:00 Pulse Rate 63 10/17/18 14:00 Respiratory Rate 20 10/17/18 14:00 Blood Pressure 134/62 10/17/18 14:00 O2 Sat by Pulse Oximetry (%) 97 10/17/18 10:00 Intake & Output 10/14/18 10/15/18 10/16/18 10/17/18 23:59 23:59 23:59 23:59 Intake Total 980 510 640 250 Output Total 920 1500 425 Balance 470 -156 -130 -369 Weight 73.663 kg 74.117 kg 72.03 kg 70.579 kg NAD RRR, no M/R BS improved, CTA 1+ edema in LE CBC, BMP 10/17/18 14:30 10/17/18 14:30 Current Medications Atorvastatin Calcium (Lipitor -) 20 mg PO HS [facility] Last Admin: 10/16/18 21:46 Dose: 20 mg Calcium Acetate (Phoslo -) 667 mg PO TIDCM [facility] Last Admin: 10/17/18 12:14 Dose: 667 mg Clopidogrel Bisulfate (Plavix -) 75 mg PO DAILY [facility] Last Admin: 10/17/18 10:27 Dose: 75 mg Heparin Sodium (Porcine) (Heparin -) 5,000 unit SQ TID [facility] Last Admin: 10/17/18 14:33 Dose: 5,000 unit Insulin Aspart (Novolog Vial Sliding Scale -) 1 vial SQ [facility]; Protocol Last Admin: 10/17/18 11:53 Dose: 6 units Insulin Detemir (Levemir Vial) 12 units SQ [facility] Last Admin: 10/16/18 21:48 Dose: 12 units Isosorbide Mononitrate (Imdur -) 60 mg PO DAILY [facility] Last Admin: 10/17/18 10:24 Dose: 60 mg Labetalol HCl (Normodyne -) 400 mg PO BID [facility] Last Admin: 10/17/18 10:27 Dose: 400 mg Melatonin (Melatonin) 5 mg PO HS PRN PRN Reason: INSOMNIA Methadone HCl 40 mg/ Methadone (HCl 20 mg) 60 mg PO DAILY@0600 [facility] Last Admin: 10/17/18 06:06 Dose: 60 mg Nifedipine (Procardia Xl -) 90 mg PO BID [facility] Last Admin: 10/17/18 10:28 Dose: 90 mg Pantoprazole Sodium (Protonix -) 40 mg PO DAILY [facility] Last Admin: 10/17/18 10:28 Dose: 40 mg Prednisone (Deltasone -) 20 mg PO DAILY [facility] Last Admin: 10/17/18 10:23 Dose: 20 mg Torsemide (Demadex -) 80 mg PO DAILY [facility] Last Admin: 10/17/18 10:24 Dose: 80 mg 68 year old gentleman with hx of of hypertension, DM on insulin, PVD s/ p Le stents, BPH, Hx of Lung cancer s/p resection who presented with SOB and noted to have BUN/Cr of 79/3.2. 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 Tubular atrophy and interstitial fibrosis, moderate. Proximal tubular degenerative and regenerative changes. Arteriosclerosis, moderate to severe. UPCR is 3.2, CHICHI negative, ANCA is negative, anti-histone ab is moderate positive would avoid any further hydrazine use given positive anti-histone Ab Renal imaging showed no obstruction torsemide 80mg daily discharge planning as per primary outpatient HD placement pending Dariusz Iniguez DO
[2018-10-17] MEDS ORDERED: INSULIN (NOVOLOG) ASPART 100 UNITS/ML 10ML VIAL ONE (22:03)
[2018-10-17] MEDS: ATORVASTATIN CA 20 MG TABLET (FP) PO SCH (22:21)
[2018-10-17] MEDS: INSULIN (LEVEMIR) 100 UNITS/ML UNITS SQ SCH (22:24)
[2018-10-18] MEDS ORDERED: METHADONE HCL 40 MG DISPERSABLE TABLET ONE (05:52)
[2018-10-18] MEDS ORDERED: METHADONE HCL 10 MG TABLET ONE (05:52)
[2018-10-18] MEDS: INSULIN SLIDING SCALE (NOVOLOG) 1 VIAL SQ SCH ×3 (06:25→17:00)
[2018-10-18] MEDS: HEPARIN NA (PORCINE) 5,000 UNITS/ML 1ML VIAL SQ SCH ×2 (06:25→17:01)
[2018-10-18] MEDS: METHADONE 40 MG, METHADONE 20 MG PO SCH (06:26)
[2018-10-18] MEDS: CALCIUM ACETATE 667 MG CAPSULE (FP) PO SCH ×3 (08:20→18:45)
[2018-10-18] MEDS: HEPARIN NA (PORCINE) 5,000 UNITS/ML 1ML VIAL IVPUSH SCH ×3 (11:30→13:30)
[2018-10-18 11:39] LABS: HEMATOCRIT 26.9 % (35.4-49); HEMOGLOBIN 8.9 GM/dL (11.7-16.9); MCH 29.2 pg (25.7-33.7); MCHC 33.1 g/dl (32.0-35.9); MEAN CELL VOLUME 88.3 fl (80-96); MEAN PLT VOLUME 8.4 fl (7.5-11.1); RBC 3.05 M/mm3 (4.00-5.60); RDW 16.8 % (11.9-15.9); WHITE BLOOD COUNT 9.4 K/mm3 (4.0-10.0)
[2018-10-18 11:47] LABS: PLATELET COUNT 135 K/MM3 (134-434)
[2018-10-18] MEDS ORDERED: EPOETIN ALFA 20,000 UNIT/1 ML VIAL IVPUSH ONE (12:00)
[2018-10-18 12:07] LABS: BLOOD UREA NITROGEN 62.7 mg/dL (7-18); CALCIUM 7.8 mg/dL (8.5-10.1); CREATININE 2.7 mg/dL (0.55-1.3); PHOSPHOROUS 2.7 mg/dL (2.5-4.9); POTASSIUM 3.9 mmol/L (3.5-5.1)
--- NOTE | 2018-10-18 12:09 | DS ---
Physical Examination Vital Signs: Vital Signs Temperature 98.6 F 10/18/18 10:00 Pulse Rate 62 10/18/18 10:00 Respiratory Rate 20 10/18/18 10:00 Blood Pressure 123/77 10/18/18 10:00 O2 Sat by Pulse Oximetry (%) 97 10/18/18 10:00 Constitutional: Yes: No Distress, Calm Cardiovascular: Yes: Pulse Irregular Respiratory: Yes: Diminished Gastrointestinal: Yes: Normal Bowel Sounds, Soft. No: Distention, Tenderness Edema: Yes Edema: LLE: Trace, RLE: Trace Labs: CBC, BMP 10/18/18 11:00 10/18/18 11:00 Discharge Summary Reason For Visit: ACUTE KIDNEY INJURY,CHF,LEUKOCYTOSIS Current Active Problems BRET (acute kidney injury) (Acute) Acute and chronic respiratory failure (Acute) [id number] kidney injury (Acute) CHF exacerbation (Acute) Chronic renal insufficiency, stage III (moderate) (Acute) Diabetes (Acute) Dyspnea (Acute) History of lung cancer (Acute) Leukocytosis (Acute) Leukocytosis (Acute) Normocytic anemia (Acute) Pneumonia (Acute) Hospital Course: ADMISSION HISTORY - Primary Care Physician PCP: Rex Hillman - Admission History of Present Illness: Pt seen/ examined chart reviewed 68 year old male with PMH HTN, IDDM, HLD, femoral stents, past nicotine use, NPH , UTI, right sided lung cancer s/p resection presented to ED for shortness of breath since last night. Pt reported he was laying down when his symptoms began. He stated his symptoms are constant, worsened by exertion, alleviated by rest. Pt admitted to symmetrical swelling. Pt denied chest pain, palpitations , cough, fever, sputum production. Pt reported in the last few weeks his PCP has been changing his Lasix dose, from 80 to 40 to 80 to 40 to nothing. Pt reported he last took Lasix x2 days ago. HOSPITAL COURSE Pt had been evaluated by Cardiology, Renal , vascular He was initially on iv lasix , renal function worsened- was given trial of fluids-- which caused volume overload- pt had to be restarted on lasix he was urinating Echo -- EF - 65 % Pt has high O2 requirements-- had to be on High flow O2 in ICU, started pt on dialysis due to worsening renal function and SOB - his O2 requirements were better-- he is on 4 liters NC Pt had renal biopsy done in September-- was found to have diabetic nephropathy- severe- permacath was placed - pt is toelrating dialysis three times a week anti histone Ab positive-- due to hydralazine plan Rehab taper down O2 as tolerated-- 3-4 liters will need O2 NC 24 hours /day Torsemide avoid Hydralazine dialysis three times a week plan for short term dialysis-- will be decided by Dr Hira botello for dc to rehab Condition: Stable - Instructions Diet, Activity, Other Instructions: Pt should follow up in the office with Dr Yu, on Sunday 10/22 for vein mapping, Call [phone] for appointment. Disposition: RESIDENTIAL FACILITY - Home Medications Comprehensive Discharge Medication List: Ambulatory Orders Amlodipine Besylate/Valsartan [Amlodipine-Valsartan 10-320 mg] 1 each PO DAILY 09/17/18 Aspirin 81 mg PO DAILY 09/17/18 Atorvastatin Ca [Lipitor] 20 mg PO HS 09/17/18 Cholecalciferol (Vitamin D3) [Vitamin D3] 50,000 unit PO WEEKLY 09/17/18 Clopidogrel Bisulfate [Plavix -] 75 mg PO DAILY 09/17/18 Doxazosin Mesylate [Cardura -] 4 mg PO DAILY 09/17/18 Furosemide [Lasix -] 40 mg PO DAILY 09/17/18 Glipizide [Glipizide ER] 10 mg PO DAILY 09/17/18 Hydralazine HCl 100 mg PO DAILY 09/17/18 Labetalol HCl 300 mg PO ASDIR 09/17/18 Nateglinide [Starlix (Nf)] 120 mg PO TID 09/17/18 Potassium Chloride [K-Dur -] 10 meq PO BID 09/17/18 Triamterene/Hydrochlorothiazid [Triamterene-Hctz 37.5-25 mg Cp] 1 each PO DAILY 09/17/18
[2018-10-18] MEDS ORDERED: HEPARIN NA (PORCINE) 5,000 UNITS/ML 1ML VIAL IVPUSH ONE (12:15)
[2018-10-18] MEDS ORDERED: SODIUM CHLORIDE 250 ML IV PRN ×2 (12:18)
--- NOTE | 2018-10-18 12:24 | PN ---
Progress Note (short form) - Note Progress Note: s: no chest pain, palps, dyspnea. Current Medications Generic Name Dose Route Start Last Admin Trade Name Freq PRN Reason Stop Dose Admin Atorvastatin Calcium 20 mg 10/15/18 22:00 10/17/18 22:21 Lipitor - PO 20 mg HS GREGORY Administration Calcium Acetate 667 mg 10/15/18 17:30 10/18/18 08:20 Phoslo - PO Not Given TIDCM GREGORY Clopidogrel Bisulfate 75 mg 10/16/18 10:00 10/17/18 10:27 Plavix - PO 75 mg DAILY GREGORY Administration Heparin Sodium (Porcine) 5,000 unit 10/15/18 22:00 10/18/18 06:25 Heparin - SQ 5,000 unit TID GREGORY Administration Sodium Chloride 250 mls @ 3,000 mls/hr 10/18/18 12:18 Normal Saline - IV 10/19/18 12:17 PRN PRN Hypotension during Dialysis Sodium Chloride 250 mls @ 3,000 mls/hr 10/18/18 12:18 Normal Saline - IV 10/19/18 12:17 PRN PRN Hypotension during Dialysis Insulin Aspart 1 vial 10/15/18 16:30 10/18/18 11:25 Novolog Vial Sliding Scale - SQ 4 units ACHS GREGORY Administration Protocol Insulin Detemir 12 units 10/15/18 22:00 10/17/18 22:24 Levemir Vial SQ 12 units HS GREGORY Administration Isosorbide Mononitrate 60 mg 10/16/18 10:00 10/17/18 10:24 Imdur - PO 60 mg DAILY GREGORY Administration Labetalol HCl 400 mg 10/15/18 22:00 10/17/18 22:21 Normodyne - PO 400 mg BID GREGORY Administration Melatonin 5 mg 10/15/18 15:42 Melatonin PO HS PRN INSOMNIA Methadone HCl 40 mg/ Methadone 60 mg 10/16/18 06:00 10/18/18 06:26 HCl 20 mg PO 60 mg DAILY@0600 GREGORY Administration Nifedipine 90 mg 10/15/18 22:00 10/17/18 22:21 Procardia Xl - PO 90 mg BID GREGORY Administration Pantoprazole Sodium 40 mg 10/16/18 10:00 10/17/18 10:28 Protonix - PO 40 mg DAILY GREGORY Administration Prednisone 20 mg 10/16/18 10:00 10/17/18 10:23 Deltasone - PO 20 mg DAILY GREGORY Administration Torsemide 80 mg 10/16/18 10:00 10/17/18 10:24 Demadex - PO 80 mg DAILY GREGORY Administration Vital Signs Period Temp Pulse Resp BP Sys/Bansal Pulse Ox Last 24 Hr 97.8 F-98.6 F 60-66 20-20 117-156/50-77 96-97 Constitutional: Yes: No Distress Cardiovascular: Yes: Regular Rate and Rhythm Respiratory: Yes: CTA Bilaterally nl eff Gastrointestinal: Yes: Soft Edema: no Neurological: Yes: Alert, Oriented no jaundice, diaphoresis not agitated - ....Imaging EKG: Image Reviewed Assessment/Plan EKG: sinus, PVC, no ischemic changes echo 09/2018 nl LV function, mild MAC, tr MR, RVSP 32 mmHg tele: sinus 68M h/o HTN, DM, HLD, PAD s/p femoral stent, prior smoker, R sided lung ca s/p partial resection p/w shortness of breath: Shortness of breath, PNA, acute diastolic CHF exacerbation: - likely multifactorial - h/o lung ca s/p resection, findings concerning for PNA - Pulmonary following, steroid taper - elevated BNP (7K) with congestion on CXR, likely component of HF - echo nl LV function, remainder unremarkable, no pulm HTN noted - torsemide, HD per renal HTN with htn urgency: - on Imdur, Labetalol, Nifedipine, continue BRET on CKD: started on HD -s/p kidney bx -manage per renal, s/p permacath placement HLD: - cont statin PAD: - cont statin, plavix restarted dc tele
--- NOTE | 2018-10-18 15:18 | PN ---
Progress Note (short form) - Note Progress Note: Renal follow up for BRET Pt seen and examined during dialysis Bp came down toward the end of tx pt also has nausea no cp, sob, abd pain sob is improved Vital Signs Temperature 98.6 F 10/18/18 10:00 Pulse Rate 60 10/18/18 13:35 Respiratory Rate 18 10/18/18 13:35 Blood Pressure 126/86 10/18/18 13:35 O2 Sat by Pulse Oximetry (%) 97 10/18/18 10:00 Intake & Output 10/15/18 10/16/18 10/17/18 10/18/18 23:59 23:59 23:59 23:59 Intake Total 510 640 260 250 Output Total 920 1500 725 775 Balance -087 -860 -465 -525 Weight 74.117 kg 72.03 kg 70.579 kg 72.212 kg NAD RRR, no M/R BS improved, CTA 1+ edema in LE CBC, BMP 10/18/18 11:00 10/18/18 11:00 Current Medications Atorvastatin Calcium (Lipitor -) 20 mg PO HS [facility] Last Admin: 10/17/18 22:21 Dose: 20 mg Calcium Acetate (Phoslo -) 667 mg PO TIDCM [facility] Last Admin: 10/18/18 12:41 Dose: Not Given Clopidogrel Bisulfate (Plavix -) 75 mg PO DAILY [facility] Last Admin: 10/17/18 10:27 Dose: 75 mg Heparin Sodium (Porcine) (Heparin -) 5,000 unit SQ TID [facility] Last Admin: 10/18/18 06:25 Dose: 5,000 unit Sodium Chloride (Normal Saline -) 250 mls @ 3,000 mls/hr IV PRN PRN PRN Reason: Hypotension during Dialysis Stop: 10/19/18 12:17 Sodium Chloride (Normal Saline -) 250 mls @ 3,000 mls/hr IV PRN PRN PRN Reason: Hypotension during Dialysis Stop: 10/19/18 12:17 Insulin Aspart (Novolog Vial Sliding Scale -) 1 vial SQ [facility]; Protocol Last Admin: 10/18/18 11:25 Dose: 4 units Insulin Detemir (Levemir Vial) 12 units SQ [facility] Last Admin: 10/17/18 22:24 Dose: 12 units Isosorbide Mononitrate (Imdur -) 60 mg PO DAILY [facility] Last Admin: 10/17/18 10:24 Dose: 60 mg Labetalol HCl (Normodyne -) 400 mg PO BID [facility] Last Admin: 10/17/18 22:21 Dose: 400 mg Melatonin (Melatonin) 5 mg PO HS PRN PRN Reason: INSOMNIA Methadone HCl 40 mg/ Methadone (HCl 20 mg) 60 mg PO DAILY@0600 [facility] Last Admin: 10/18/18 06:26 Dose: 60 mg Nifedipine (Procardia Xl -) 90 mg PO BID [facility] Last Admin: 10/17/18 22:21 Dose: 90 mg Pantoprazole Sodium (Protonix -) 40 mg PO DAILY [facility] Last Admin: 10/17/18 10:28 Dose: 40 mg Prednisone (Deltasone -) 20 mg PO DAILY [facility] Last Admin: 10/17/18 10:23 Dose: 20 mg Torsemide (Demadex -) 80 mg PO DAILY [facility] Last Admin: 10/17/18 10:24 Dose: 80 mg 68 year old gentleman with hx of of hypertension, DM on insulin, PVD s/ p Le stents, BPH, Hx of Lung cancer s/p resection who presented with SOB and noted to have BUN/Cr of 79/3.2. #Acute shortness of breath form diastolic HF + PNA #Peripheral edema #Acute on chronic renal insufficiency #Anemia #Hypertension #BPH had HD today, tx cut short due to Nausea. 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 Tubular atrophy and interstitial fibrosis, moderate. Proximal tubular degenerative and regenerative changes. Arteriosclerosis, moderate to severe. UPCR is 3.2, CHICHI negative, ANCA is negative, anti-histone ab is moderate positive would avoid any further hydrazine use given positive anti-histone Ab Renal imaging showed no obstruction torsemide 80mg daily Dariusz Iniguez DO
[2018-10-18] MEDS: PANTOPRAZOLE 40 MG TABLET (FP) PO SCH (15:28)
[2018-10-18] MEDS: NIFEdipine E.R. 90 MG TABLET (FP) PO SCH ×2 (15:30→15:51)
[2018-10-18] MEDS: CLOPIDOGREL BISULFATE 75 MG TABLET (FP) PO SCH (15:30)
[2018-10-18] MEDS: LABETALOL HCL 200 MG TABLET (FP) PO SCH (15:30)
[2018-10-18] MEDS: predniSONE 10 MG TABLET (UD) PO SCH (15:31)
[2018-10-18] MEDS: ISOSORBIDE MONONITRATE 60 MG TAB.SR.24H (FP) PO SCH (15:32)
[2018-10-18 15:39] VITALS: TEMP 98.8
[2018-10-18] MEDS: TORSEMIDE 20 MG TABLET (FP) PO SCH (15:52)
[2018-10-18 16:36] VITALS: BP 167/73; PULSE 60
[2018-10-18 17:03] LABS: BLOOD UREA NITROGEN 12.2 mg/dL (7-18); CREATININE 0.9 mg/dL (0.55-1.3)
[2018-10-18] MEDS ORDERED: ONDANSETRON 4 MG/2 ML VIAL IVPUSH ONE (17:30)
[2018-10-18 20:19] VITALS: BMI 27.1
--- NOTE | 2018-12-07 09:45 | PATH ---
Surgical Pathology Report Patient Name: MARTHA PAVON [facility]. Rec. #: [id number] /Age/Gender: 1950 (Age: 68) / M Account: [id number] Location: 4 W TELEMETRY U Taken: 10/03/2018 Received: 10/03/2018 Reported: 12/07/2018 Physicians: Nish Bowman M.D. Specimen(s) Received RENAL BIOPSY FOR SEND OUT Clinical History Renal insufficiency Intraoperative Consult Diagnosis Renal biopsy: Glomeruli present. Jean Douglass M.D., 10/03/2018 Final Diagnosis KIDNEY, BIOPSY: 1. 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 See comment. 2. Tubular atrophy and intestinal fibrosis, moderate. 3. Prominal tubular degenerative and regenerative changes, patchy. 4. Aterioseslerosis, moderate, and arteriolosclerosis, moderate to severe. COMMENT: Immunofluorescence microscopy shows no evidence of renal disease of the immune complex type. No acute/active inflammatory injury is seen. There may a component of reversible acute tubular injury. However the moderate tubulointerstitial scarring is likely irreversible. Electron microscopy is pending and will be reported separately in an addendum. Case sent for consultation to Dr. Bob Ortega from [place], [place] ([id number]), the diagnosis above reflects his opinion. See complete report ([id number]) from [place], [place] for additional details. Electronically Signed Nydia Douglass M.D. Gross Description Received in saline labeled "right renal biopsy," are 4 hernandez-red, cylindrical portions of soft tissue ranging from 0.2-1.1 cm in length and averaging 0.1 cm in diameter. The specimens are divided, placed into 10% buffered formalin, Carrington fixative and glutaraldehyde. The specimen is sent to [facility] for further studies. 10/03/201810/03/2018
== END 2018-10-18 20:04 | DRG 291 ==
LOC: JER 11:22 → JERBED 13:43 → J4W 14:55 → JICU 09-26 18:10 → J5S 10-08 22:41 → J4W 10-09 17:56
PROVIDERS: ADMIT Internal Medicine; ATTEND Internal Medicine
PROC: 5A09457 Assistance with Respiratory Ventilation, 24-96 Consecutive Hours, Continuous Positive Airway Pressure (ICD-10-PCS; principal; 2018-09-24)
PROC: 5A1D70Z Performance of Urinary Filtration, Intermittent, Less than 6 Hours Per Day (ICD-10-PCS; 2018-09-27)
PROC: 0TB03ZX Excision of Right Kidney, Percutaneous Approach, Diagnostic (ICD-10-PCS; 2018-10-02)
PROC: 05HM33Z Insertion of Infusion Device into Right Internal Jugular Vein, Percutaneous Approach (ICD-10-PCS; 2018-10-05)
PROC: B513ZZA Fluoroscopy of Right Jugular Veins, Guidance (ICD-10-PCS; 2018-10-05)
PROC: 05PYX3Z Removal of Infusion Device from Upper Vein, External Approach (ICD-10-PCS; 2018-10-13)
PROC: 0JH63XZ Insertion of Tunneled Vascular Access Device into Chest Subcutaneous Tissue and Fascia, Percutaneous Approach (ICD-10-PCS; 2018-10-15)
PROC: 05HM33Z Insertion of Infusion Device into Right Internal Jugular Vein, Percutaneous Approach (ICD-10-PCS; 2018-10-15)
PROC: B513ZZA Fluoroscopy of Right Jugular Veins, Guidance (ICD-10-PCS; 2018-10-15)
DX: I13.0 Hypertensive heart and chronic kidney disease with heart failure and stage 1 through stage 4 chronic kidney disease, or unspecified chronic kidney disease (principal); J18.9 Pneumonia, unspecified organism; I50.33 Acute on chronic diastolic (congestive) heart failure; J96.21 Acute and chronic respiratory failure with hypoxia; N17.9 Acute kidney failure, unspecified; N18.3 Chronic kidney disease, stage 3 (moderate); E11.21 Type 2 diabetes mellitus with diabetic nephropathy; I16.0 Hypertensive urgency; E11.22 Type 2 diabetes mellitus with diabetic chronic kidney disease; E11.51 Type 2 diabetes mellitus with diabetic peripheral angiopathy without gangrene; Z79.4 Long term (current) use of insulin; Z90.2 Acquired absence of lung [part of]; Z85.118 Personal history of other malignant neoplasm of bronchus and lung; E66.9 Obesity, unspecified; Z68.27 Body mass index [BMI] 27.0-27.9, adult; D73.89 Other diseases of spleen; E78.5 Hyperlipidemia, unspecified; Z87.891 Personal history of nicotine dependence; D72.829 Elevated white blood cell count, unspecified; N40.0 Benign prostatic hyperplasia without lower urinary tract symptoms; K59.00 Constipation, unspecified; D63.1 Anemia in chronic kidney disease; K43.9 Ventral hernia without obstruction or gangrene; Z99.2 Dependence on renal dialysis
CPT/HCPCS: 36415; 36600; 50200; 71045-TC-FY; 71046-TC-FY; 71250-TC; 76775-TC; 76856-TC; 76942-TC; 80048; 80053; 80061; 81003; 82565; 82668; 82728; 82803; 82962; 83036; 83520; 83540; 83550; 83615; 83721; 83735; 83880; 84100; 84156; 84443; 84484; 84520; 84540; 85025; 85027; 85610; 85613; 85730; 85732; 86038; 86160; 86162; 86225; 86226; 86235; 86256; 86704; 86706; 86803; 87040; 87086; 87205; 87340; 87389; 87899; 88300-TC; 88329; 90670; 93005; 93010; 93306-TC; 94640; 94660; 94760; 94761; 97116-GP; 97161-GP; 99285-25; G0480; J0735; J0885; J1644; J7030; P9047

== ENCOUNTER 2018-10-19 14:47 | Inpatient (IN) | payer OTHER ==
--- NOTE | 2018-10-19 15:39 | PDOC ---
History of Present Illness - General Chief Complaint: RX Refill Stated Complaint: RX REFILL/DIALYSIS Time Seen by Provider: 10/19/18 15:36 Past History - Past History Allergies/Adverse Reactions: Allergies No Known Allergies Allergy (Verified 09/17/18 11:30) Home Medications: Ambulatory Orders Glipizide [Glipizide ER] 10 mg PO DAILY 09/17/18 Atorvastatin Ca [Lipitor] 20 mg PO HS #30 tablet 10/18/18 Clopidogrel Bisulfate [Plavix -] 75 mg PO DAILY #30 tablet 10/18/18 Methadone [Dolophine -] 60 mg PO DAILY@0600 tablet MDD 1 10/18/18 Methadone [Dolophine -] 60 mg PO DAILY@0600 tablet MDD 1 10/18/18 Acetaminophen [Acetaminophen ER] 650 mg PO Q6H PRN 10/19/18 Amlodipine Besylate [Norvasc -] 10 mg PO DAILY 10/19/18 Aspirin [Aspirin EC] 81 mg PO DAILY 10/19/18 Cholecalciferol (Vitamin D3) [Dialyvite Vitamin D3 Max] 50,000 unit PO WEEKLY Doxazosin Mesylate [Cardura -] 4 mg PO DAILY 10/19/18 Furosemide [Lasix -] 40 mg PO DAILY 10/19/18 Hydralazine HCl 50 mg PO BID 10/19/18 Labetalol HCl [Normodyne -] 300 mg PO BID 10/19/18 Nateglinide [Starlix (Nf)] 120 mg PO TID 10/19/18 Nystatin/Triamcinolone Top Cr [Mycolog II Cream -] 1 applic TP BID 10/19/18 Potassium Chloride 10 meq PO BID 10/19/18 Triamterene/Hydrochlorothiazid [Triamterene-Hctz 37.5-25 mg Tb] 1 each PO DAILY 10/19/18 - Social History Smoking Status: Former smoker *Physical Exam - Vital Signs Last Vital Signs Temp Pulse Resp BP Pulse Ox 98.3 F 77 16 188/64 H 95 10/19/18 14:49 10/19/18 14:49 10/19/18 14:49 10/19/18 14:49 10/19/18 14:49 *DC/Admit/Observation/Transfer - Discharge Dispostion Condition at time of disposition: Stable - Referrals Referrals: Edi Martinez MD [Primary Care Provider] - - Patient Instructions - Post Discharge Activity
--- NOTE | 2018-10-19 15:40 | PDOC ---
History of Present Illness - General Chief Complaint: RX Refill Stated Complaint: RX REFILL/DIALYSIS Time Seen by Provider: 10/19/18 15:36 History Source: Patient, Family (daughter) Exam Limitations: No Limitations - History of Present Illness Initial Comments: 10/19/18 17:58 Sheng Oliver is a 68M with PMH COPD, CHF, CKD on dialysis, lung cancer s /p R lobectomy, DM on insulin, HTN presenting with medication issue and SOB. Patient was admitted at [facility] for last 5 weeks for PNA, discharged to [facility] last night for rehab. Chronic COPD 2/2 smoking, discharged from [facility] on 3L nasal cannula. This AM patient was walking with oxygen and desaturating to the point of perioral cyanosis per pt's daughter, transferred to ED for further evaluation. Patient on chronic 60mg qd methadone for 30+ year history of opioid dependence, but rehab facility unable to provide this and also transferred back to [facility] for methadone administration. On MWF hemodialysis via permacath, last HD yesterday for 3.5hrs. Still making urine. No medications taken today yet. Past History - Past Medical History Allergies/Adverse Reactions: Allergies Allergy/AdvReac Type Severity Reaction Status Date / Time No Known Allergies Allergy Verified 09/17/18 11:30 Home Medications: Ambulatory Orders Glipizide [Glipizide ER] 10 mg PO DAILY 09/17/18 Atorvastatin Ca [Lipitor] 20 mg PO HS #30 tablet 10/18/18 Clopidogrel Bisulfate [Plavix -] 75 mg PO DAILY #30 tablet 10/18/18 Methadone [Dolophine -] 60 mg PO DAILY@0600 tablet MDD 1 10/18/18 Methadone [Dolophine -] 60 mg PO DAILY@0600 tablet MDD 1 10/18/18 Acetaminophen [Acetaminophen ER] 650 mg PO Q6H PRN 10/19/18 Amlodipine Besylate [Norvasc -] 10 mg PO DAILY 10/19/18 Aspirin [Aspirin EC] 81 mg PO DAILY 10/19/18 Cholecalciferol (Vitamin D3) [Dialyvite Vitamin D3 Max] 50,000 unit PO WEEKLY Doxazosin Mesylate [Cardura -] 4 mg PO DAILY 10/19/18 Furosemide [Lasix -] 40 mg PO DAILY 10/19/18 Hydralazine HCl 50 mg PO BID 10/19/18 Labetalol HCl [Normodyne -] 300 mg PO BID 10/19/18 Nateglinide [Starlix (Nf)] 120 mg PO TID 10/19/18 Nystatin/Triamcinolone Top Cr [Mycolog II Cream -] 1 applic TP BID 10/19/18 Potassium Chloride 10 meq PO BID 10/19/18 Triamterene/Hydrochlorothiazid [Triamterene-Hctz 37.5-25 mg Tb] 1 each PO DAILY 10/19/18 Cancer: Yes (lung) Cardiac Disorders: Yes COPD: Yes CHF: Yes Diabetes: Yes Dialysis: Yes (M/W/F(RT.SIDE CHEST PERMA CATH)) HTN: Yes Hypercholesterolemia: Yes Other medical history: VIT-D DEFICIENCY,HYPOKALEMIA,PRESSURE ULCER STAGE-1 - Suicide/Smoking/Psychosocial Hx Smoking History: Former smoker Have you smoked in the past 12 months: No Information on smoking cessation initiated: No Hx Alcohol Use: No Drug/Substance Use Hx: No Review of Systems - Review of Systems Constitutional: No: Chills, Diaphoresis, Fever HEENTM: No: Blurred Vision, Tinnitus, Throat Pain Respiratory: Yes: Orthopnea, Shortness of Breath, SOB with Exertion. No: Cough Cardiac (ROS): Yes: Edema. No: Chest Pain, Palpitations ABD/GI: No: Constipated, Diarrhea, Difficulty Swallowing, Nausea, Vomiting : No: Burning, Dysuria, Discharge, Frequency Musculoskeletal: No: Back Pain, Gout, Joint Pain Integumentary: Yes: Bruising. No: Erythema, Lesions Neurological: No: Headache, Numbness, Paresthesia, Tremors, Weakness Endocrine: No: Symptoms Reported Hematologic/Lymphatic: No: Symptoms Reported *Physical Exam - Vital Signs Last Vital Signs Temp Pulse Resp BP Pulse Ox 98.3 F 77 16 188/64 H 95 10/19/18 14:49 10/19/18 14:49 10/19/18 14:49 10/19/18 14:49 10/19/18 14:49 - Physical Exam General Appearance: Yes: Nourished, Appropriately Dressed. No: Apparent Distress HEENT: positive: SARAH, Normal ENT Inspection, Normal Voice, Symmetrical, Pharynx Normal, Scleral Icterus (R), Scleral Icterus (L) Neck: positive: Trachea midline. negative: Tender, Decreased range of motion Respiratory/Chest: positive: Lungs Clear, Normal Breath Sounds, Dullness (RLL dullness consistent with RLL lobectomy). negative: Chest Tender, Respiratory Distress (on 3L nasal cannula sat 96%, drops on 93% when sitting up), Accessory Muscle Use, Crackles, Rales, Rhonchi Cardiovascular: positive: Regular Rhythm, Regular Rate, Edema (some abdominal fluid). negative: Murmur Gastrointestinal/Abdominal: positive: Normal Bowel Sounds, Soft. negative: Tender Musculoskeletal: positive: Normal Inspection Extremity: positive: Normal Capillary Refill, Normal Inspection, Normal Range of Motion. negative: Tender Integumentary: positive: Normal Color, Dry Neurologic: positive: Fully Oriented, Alert, Normal Mood/Affect, Normal Response ED Treatment Course - LABORATORY CBC & Chemistry Diagram: 10/19/18 16:25 10/19/18 16:25 Medical Decision Making - Medical Decision Making Sheng Oliver is a 68M with PMH CHF, CKD on dialysis, COPD, DM on insulin , lung cancer s/p R lobectomy, and HTN presenting with SOB and medication issue. Given presentation and history of both PNA admission and COPD, hypoxia on 3L NC is concerning for further PNA vs. PTX vs. COPD exacerbation. No fluid in lungs on exam, but still concerning for CHF exacerbation was well. Will evaluate with CMP, CBC, cardiac profile, PT/INR, BNP, CXR, ECG. Given DM, will evaluate for hypoglycemia via fingerstick glucose, likely admit to floor for further evaluation of SOB and new discharge plans to rehab facility that can accommodate methadone dosing. ECG shows no ischemic changes. BNP ~5200. 10/19/18 18:[address] Barber for admission to telemetry under Dr. Martinez due to CHF hx. *DC/Admit/Observation/Transfer Diagnosis at time of Disposition: COPD (chronic obstructive pulmonary disease) - Discharge Dispostion Condition at time of disposition: Stable - Referrals - Patient Instructions - Post Discharge Activity
[2018-10-19 16:49] LABS: BASO % 1.1 % (0-2.0); EOS % 1.7 % (0-4.5); HEMATOCRIT 26.9 % (35.4-49); HEMOGLOBIN 8.8 GM/dL (11.7-16.9); LYMPH % 10.3 % (8-40); MCH 29.4 pg (25.7-33.7); MCHC 32.7 g/dl (32.0-35.9); MEAN CELL VOLUME 89.9 fl (80-96); MEAN PLT VOLUME 8.8 fl (7.5-11.1); MONO % 5.4 % (3.8-10.2); NEUT % 81.5 % (42.8-82.8); PLATELET COUNT 144 K/MM3 (134-434); RBC 2.99 M/mm3 (4.00-5.60); RDW 17.3 % (11.9-15.9); WHITE BLOOD COUNT 7.5 K/mm3 (4.0-10.0)
[2018-10-19 17:03] LABS: INR 0.97 (0.83-1.09); PROTHROMBIN TIME (PATIENT) 11.5 SEC (9.7-13.0)
[2018-10-19 17:06] LABS: ACTIVATED PTT 24.6 SECONDS (25.2-36.5)
--- NOTE | 2018-10-19 17:19 | PDOC ---
Documentation entered by Pascual Contreras SCRIBE, acting as scribe for Rafa Nicole MD. Rafa Nicole MD: This documentation has been prepared by the Ben sawyer Joel, SCRIBE, under my direction and personally reviewed by me in its entirety. I confirm that the documentation accurately reflects all work, treatment, procedures, and medical decision making performed by me. Attending Attestation - Resident Resident Name: MichaelLong - ED Attending Attestation I have performed the following: I have examined & evaluated the patient, The case was reviewed & discussed with the resident, I agree w/resident's findings & plan, Exceptions are as noted - HPI HPI: 10/19/18 16:30 The patient is a 68 year old male with a significant PMH of HTN, IDDM, COPD, CHF , dialysis (MWF), lung CA (s/p RLL lobectomy), and hyperlipidemia who presents to the emergency department from [facility] for evaluation of shortness of breath this morning. Pt reports shortness of breath this morning which is aggravated by exertion. Per [facility], pt was found to have low O2 sat despite being on 3 L O2. The patient denies chest pain, headache and dizziness. Denies fever, chills, nausea, vomit, diarrhea and constipation. Allergies: NKA Past surgical history: RLL lobectomy. Social history: Former smoker. No reported alcohol or drug use. PCP: Dr. Ximena Martinez Nephro: Dr. Dariusz Iniguez - Physicial Exam PE: 10/19/18 16:31 GENERAL: Awake, alert, and fully oriented, in no acute distress. HEAD: No signs of trauma EYES: PERRLA, EOMI, sclera anicteric, conjunctiva clear ENT: Auricles normal inspection, hearing grossly normal, nares patent, oropharynx clear without exudates. Moist mucosa NECK: Nontender, no stepoffs, Normal ROM, supple, no lymphadenopathy, JVD, or masses LUNGS: Breath sounds equal, clear to auscultation bilaterally. No wheezes, and no crackles HEART: Regular rate and rhythm, normal S1 and S2, no murmurs, rubs or gallops ABDOMEN: Soft, nontender, normoactive bowel sounds. No guarding, no rebound. No masses EXTREMITIES: + 2 PE BLE NEUROLOGICAL: Cranial nerves II through XII intact. 5/5 strength and sensation in all extremities, Normal speech, normal gait, normal cerebellar function SKIN: Warm, Dry, normal turgor, no rashes or lesions noted. - Medical Decision Making 10/19/18 17:18 68 M with SOB and MEHTA. Exam with edema in lower extremities. Will evaluate for CHF/volume overload. Also consider ACS. EKG without ischemic changes. - Labs, trop, BNP - CXR - Renal c/s for possible HD 10/19/18 18:47 Labs unremarkable. No indication for emergent HD Lasix 40mg IV given. Pt admitted to hospitalist
[2018-10-19 18:00] LABS: ALBUMIN 2.4 g/dl (3.4-5.0); BILIRUBIN,TOTAL 0.3 mg/dL (0.2-1); CALCIUM 7.6 mg/dL (8.5-10.1); CREATININE 2.6 mg/dL (0.55-1.3); MAGNESIUM 1.7 mg/dL (1.8-2.4); N-TERMINAL BNP 5207.2 pg/ml (5-125); TOT PROT 5.8 g/dl (6.4-8.2)
[2018-10-19] MEDS ORDERED: FUROSEMIDE 40 MG/4 ML INJECTABLE VIAL IVPUSH ONE (18:29)
[2018-10-19] MEDS ORDERED: FUROSEMIDE 40 MG/4 ML INJECTABLE VIAL ONE (18:33)
--- NOTE | 2018-10-19 18:57 | HP ---
CHIEF COMPLAINT: shortness of breath PCP: Juan HISTORY OF PRESENT ILLNESS: 68yo man with shortness of breath. Patient was admitted - 09/17-10/18 just discharged yesterday, comes back, complaining of shortness of breath and his [facility] facility not having his home medications. Patient had renal biopsy performed which showed diabetic nephropathy. He underwent about dialysis sessions already. His last HD session was yesterday. ER course was notable for: (1) cxr (2) ekg (3) Recent Travel: no PAST MEDICAL HISTORY: HTN, IDDM, COPD, CHF, dialysis (MWF), lung CA (s/p RLL lobectomy), and hyperlipidemia PAST SURGICAL HISTORY: RLL lobectomy Social History: Smoking: former smoker, quit 15 years ago Alcohol: no Drugs: no Family History: no Allergies No Known Allergies Allergy (Verified 09/17/18 11:30) HOME MEDICATIONS: Home Medications Medication Instructions Recorded Glipizide [Glipizide ER] 10 mg PO DAILY 09/17/18 Atorvastatin Ca [Lipitor] 20 mg PO HS #30 tablet 10/18/18 Clopidogrel Bisulfate [Plavix -] 75 mg PO DAILY #30 tablet 10/18/18 Methadone [Dolophine -] 60 mg PO DAILY@0600 tablet MDD 1 10/18/18 Methadone [Dolophine -] 60 mg PO DAILY@0600 tablet MDD 1 10/18/18 Acetaminophen [Acetaminophen ER] 650 mg PO Q6H PRN 10/19/18 Amlodipine Besylate [Norvasc -] 10 mg PO DAILY 10/19/18 Aspirin [Aspirin EC] 81 mg PO DAILY 10/19/18 Cholecalciferol (Vitamin D3) 50,000 unit PO WEEKLY 10/19/18 [Dialyvite Vitamin D3 Max] Doxazosin Mesylate [Cardura -] 4 mg PO DAILY 10/19/18 Furosemide [Lasix -] 40 mg PO DAILY 10/19/18 Hydralazine HCl 50 mg PO BID 10/19/18 Labetalol HCl [Normodyne -] 300 mg PO BID 10/19/18 Nateglinide [Starlix (Nf)] 120 mg PO TID 10/19/18 Nystatin/Triamcinolone Top Cr 1 applic TP BID 10/19/18 [Mycolog II Cream -] Potassium Chloride 10 meq PO BID 10/19/18 Triamterene/Hydrochlorothiazid 1 each PO DAILY 10/19/18 [Triamterene-Hctz 37.5-25 mg Tb] REVIEW OF SYSTEMS CONSTITUTIONAL: Absent: fever, chills, diaphoresis, generalized weakness, malaise, loss of appetite, weight change HEENT: Absent: rhinorrhea, nasal congestion, throat pain, throat swelling, difficulty swallowing, mouth swelling, ear pain, eye pain, visual changes CARDIOVASCULAR: Absent: chest pain, syncope, palpitations, irregular heart rate, lightheadedness , peripheral edema RESPIRATORY: Absent: cough, orthopnea, wheezing, stridor, hemoptysis present- shortness of breath, dyspnea with exertion, GASTROINTESTINAL: Absent: abdominal pain, abdominal distension, nausea, vomiting, diarrhea, constipation, melena, hematochezia GENITOURINARY: Absent: dysuria, frequency, urgency, hesitancy, hematuria, flank pain, genital pain MUSCULOSKELETAL: Absent: myalgia, arthralgia, joint swelling, back pain, neck pain SKIN: Absent: rash, itching, pallor HEMATOLOGIC/IMMUNOLOGIC: Absent: easy bleeding, easy bruising, lymphadenopathy, frequent infections ENDOCRINE: Absent: unexplained weight gain, unexplained weight loss, heat intolerance, cold intolerance NEUROLOGIC: Absent: headache, focal weakness or paresthesias, dizziness, unsteady gait, seizure, mental status changes, bladder or bowel incontinence PSYCHIATRIC: Absent: anxiety, depression, suicidal or homicidal ideation, hallucinations. PHYSICAL EXAMINATION Vital Signs - 24 hr 10/19/18 10/19/18 14:49 17:55 Temperature 98.3 F 98.3 F Pulse Rate 77 Pulse Rate [ 72 Left Apical] Respiratory 16 16 Rate Blood Pressure 188/64 H Blood Pressure 172/68 H [Left Arm] O2 Sat by Pulse 95 97 Oximetry (%) GENERAL: Awake, alert, and fully oriented, in no acute distress. HEAD: Normal with no signs of trauma. EYES: Pupils equal, round and reactive to light, extraocular movements intact, sclera anicteric, conjunctiva clear. No lid lag. EARS, NOSE, THROAT: Ears normal, nares patent, oropharynx clear without exudates. Moist mucous membranes. NECK: Normal range of motion, supple without lymphadenopathy, JVD, or masses. LUNGS: Breath sounds equal, clear to auscultation bilaterally. No wheezes, and no crackles. No accessory muscle use. Chest- right chest HD catheter is in place HEART: Regular rate and rhythm, normal S1 and S2 without murmur, rub or gallop. ABDOMEN: Soft, nontender, not distended, normoactive bowel sounds, no guarding, no rebound, no masses. MUSCULOSKELETAL: Normal range of motion at all joints. No bony deformities or tenderness. No CVA tenderness. UPPER EXTREMITIES: 2+ pulses, warm, well-perfused. No cyanosis. No clubbing. No peripheral edema. LOWER EXTREMITIES: 2+ pulses, warm, well-perfused. No calf tenderness. No peripheral edema. NEUROLOGICAL: Cranial nerves II-XII intact. Normal speech. Normal gait. PSYCHIATRIC: Cooperative. Good eye contact. Appropriate mood and affect. SKIN: Warm, dry, normal turgor, no rashes or lesions noted, normal capillary refill. Laboratory Results - last 24 hr 10/19/18 10/19/18 10/19/18 16:25 16:25 16:25 WBC 7.5 RBC 2.99 L Hgb 8.8 L Hct 26.9 L MCV 89.9 MCH 29.4 MCHC 32.7 RDW 17.3 H Plt Count 144 MPV 8.8 Absolute Neuts (auto) 6.1 Neutrophils % 81.5 Lymphocytes % 10.3 D Monocytes % 5.4 D Eosinophils % 1.7 D Basophils % 1.1 D Nucleated RBC % 0 PT with INR 11.50 INR 0.97 PTT (Actin FS) 24.6 L Sodium 137 Potassium 4.0 Chloride 99 Carbon Dioxide 30 Anion Gap 8 BUN 39.0 H Creatinine 2.6 H Est GFR (CKD-EPI)AfAm 27.72 Est GFR (CKD-EPI)NonAf 23.91 Random Glucose 372 H* Calcium 7.6 L Magnesium 1.7 L Total Bilirubin 0.3 AST 19 ALT 41 Alkaline Phosphatase 126 H Creatine Kinase 40 Troponin I 0.03 B-Natriuretic Peptide 5207.2 H Total Protein 5.8 L Albumin 2.4 L Imaging studies reviewed cxr- pulm edema b/l ASSESSMENT/PLAN: #Fluid overload- likely secondary to renal failure vs possible CHF, although last official echo did not show ventricular dysfunction. -telemetry -i/o -daily weight -fluid restriction -echo -renal consult for HD -cardiology eval for possible CHF -furosemide 40mg IV q12hrs #DM -insulin sliding scale -10 units glargine qhs -diabetic diet #HTN -uncontrolled likely from being underdialyzed -hydralazine -furosemide -labetolol -1g na diet -fluid removal via HD #DVT ppx- heparin sc Visit type - Emergency Visit Emergency Visit: Yes ED Registration Date: 10/19/18 Care time: The patient presented to the Emergency Department on the above date and was hospitalized for further evaluation of their emergent condition. - New Patient This patient is new to me today: Yes Date on this admission: 10/19/18 - Critical Care Critical Care patient: No
[2018-10-19] MEDS ORDERED: METHADONE HCL 40 MG DISPERSABLE TABLET PO ONE (21:40)
[2018-10-19] MEDS ORDERED: METHADONE HCL 10 MG TABLET PO ONE (21:40)
[2018-10-19] MEDS ORDERED: METHADONE HCL 40 MG DISPERSABLE TABLET ONE (21:46)
[2018-10-19] MEDS ORDERED: ATORVASTATIN CA 20 MG TABLET (FP) ONE (22:09)
[2018-10-19] MEDS ORDERED: hydrALAZINE HCL 25 MG TABLET (FP) ONE (22:10)
[2018-10-19] MEDS ORDERED: LABETALOL HCL 100 MG TABLET (FP) ONE (22:10)
[2018-10-19] MEDS ORDERED: INSULIN (NOVOLOG) ASPART 100 UNITS/ML 10ML VIAL ONE (22:10)
[2018-10-19] MEDS ORDERED: HEPARIN NA (PORCINE) 5,000 UNITS/ML 1ML VIAL ONE (22:10)
[2018-10-19] MEDS: ATORVASTATIN CA 20 MG TABLET (FP) PO SCH (22:17)
[2018-10-19] MEDS: hydrALAZINE HCL 50 MG TABLET (FP) PO SCH (22:17)
[2018-10-19] MEDS: HEPARIN NA (PORCINE) 5,000 UNITS/ML 1ML VIAL SQ SCH (22:17)
[2018-10-19] MEDS: LABETALOL HCL 200 MG TABLET (FP) PO SCH (22:17)
[2018-10-19] MEDS: INSULIN SLIDING SCALE (NOVOLOG) 1 VIAL SQ SCH (22:18)
[2018-10-20] MEDS ORDERED: FUROSEMIDE 40 MG/4 ML INJECTABLE VIAL ONE (05:30)
[2018-10-20] MEDS: FUROSEMIDE 40 MG/4 ML INJECTABLE VIAL IVPUSH SCH ×2 (05:37→15:33)
[2018-10-20] MEDS ORDERED: METHADONE HCL 40 MG DISPERSABLE TABLET PO SCH (06:00)
[2018-10-20] MEDS ORDERED: METHADONE HCL 10 MG TABLET PO SCH (06:00)
[2018-10-20 06:31] LABS: HEMATOCRIT 28.1 % (35.4-49); LYMPH % 9.9 % (8-40); MCH 29.1 pg (25.7-33.7); MCHC 32.1 g/dl (32.0-35.9); MEAN CELL VOLUME 90.5 fl (80-96); MONO % 6.1 % (3.8-10.2); PLATELET COUNT 149 K/MM3 (134-434); RBC 3.11 M/mm3 (4.00-5.60); RDW 17.9 % (11.9-15.9); WHITE BLOOD COUNT 7.5 K/mm3 (4.0-10.0)
[2018-10-20] MEDS: INSULIN SLIDING SCALE (NOVOLOG) 1 VIAL SQ SCH ×4 (06:35→22:34)
[2018-10-20 06:47] LABS: BLOOD UREA NITROGEN 47.1 mg/dL (7-18); CALCIUM 7.3 mg/dL (8.5-10.1); CREATININE 2.9 mg/dL (0.55-1.3); POTASSIUM 3.8 mmol/L (3.5-5.1)
--- NOTE | 2018-10-20 08:57 | CON.CARD ---
Consult Consult Specialty:: Cardiology Reason for Consultation:: sob - History of Present Illness History of Present Illness: 68yo man with shortness of breath. Patient was admitted - 09/17-10/18 just discharged yesterday, comes back, complaining of shortness of breath and his [facility] home facility not having his home medications. Patient had renal biopsy performed which showed diabetic nephropathy. He underwent about dialysis sessions already. His last HD session was yesterday. - History Source History Provided By: Patient, Medical Record - Past Medical History Cardio/Vascular: Yes: CHF, HTN, Hyperlipdemia Hepatobiliary: Yes: Hepatitis C Renal/: Yes: UTI Endocrine: Yes: Diabetes Mellitus - Alcohol/Substance Use Hx Alcohol Use: No - Smoking History Smoking history: Former smoker Have you smoked in the past 12 months: No - Social History Usual Living Arrangement: With Spouse ADL: Independent History of Recent Travel: No Home Medications - Allergies Allergies/Adverse Reactions: Allergies Allergy/AdvReac Type Severity Reaction Status Date / Time No Known Allergies Allergy Verified 09/17/18 11:30 - Home Medications Home Medications: Ambulatory Orders Glipizide [Glipizide ER] 10 mg PO DAILY 09/17/18 Atorvastatin Ca [Lipitor] 20 mg PO HS #30 tablet 10/18/18 Clopidogrel Bisulfate [Plavix -] 75 mg PO DAILY #30 tablet 10/18/18 Methadone [Dolophine -] 60 mg PO DAILY@0600 tablet MDD 1 10/18/18 Methadone [Dolophine -] 60 mg PO DAILY@0600 tablet MDD 1 10/18/18 Acetaminophen [Acetaminophen ER] 650 mg PO Q6H PRN 10/19/18 Amlodipine Besylate [Norvasc -] 10 mg PO DAILY 10/19/18 Aspirin [Aspirin EC] 81 mg PO DAILY 10/19/18 Cholecalciferol (Vitamin D3) [Dialyvite Vitamin D3 Max] 50,000 unit PO WEEKLY Doxazosin Mesylate [Cardura -] 4 mg PO DAILY 10/19/18 Furosemide [Lasix -] 40 mg PO DAILY 10/19/18 Hydralazine HCl 50 mg PO BID 10/19/18 Labetalol HCl [Normodyne -] 300 mg PO BID 10/19/18 Nateglinide [Starlix (Nf)] 120 mg PO TID 10/19/18 Nystatin/Triamcinolone Top Cr [Mycolog II Cream -] 1 applic TP BID 10/19/18 Potassium Chloride 10 meq PO BID 10/19/18 Triamterene/Hydrochlorothiazid [Triamterene-Hctz 37.5-25 mg Tb] 1 each PO DAILY 10/19/18 Review of Systems - Review of Systems Constitutional: reports: No Symptoms Eyes: reports: No Symptoms HENT: reports: No Symptoms Neck: reports: No Symptoms Cardiovascular: reports: Shortness of Breath Respiratory: reports: SOB, SOB on Exertion Gastrointestinal: reports: No Symptoms Genitourinary: reports: No Symptoms Breasts: reports: No Symptoms Reported Musculoskeletal: reports: No Symptoms Integumentary: reports: No Symptoms Neurological: reports: No Symptoms Endocrine: reports: No Symptoms Hematology/Lymphatic: reports: No Symptoms Psychiatric: reports: No Symptoms Vital Signs: Vital Signs Temperature 98.3 F 10/19/18 17:55 Pulse Rate 82 10/20/18 06:37 Respiratory Rate 20 10/20/18 06:37 Blood Pressure 163/62 10/20/18 06:37 O2 Sat by Pulse Oximetry (%) 98 10/20/18 06:37 Constitutional: Yes: Well Nourished, No Distress, Calm Eyes: Yes: WNL, Conjunctiva Clear, EOM Intact HENT: Yes: WNL, Atraumatic, Normocephalic Neck: Yes: WNL, Supple, Trachea Midline Respiratory: Yes: WNL, Regular, CTA Bilaterally Gastrointestinal: Yes: WNL, Normal Bowel Sounds Renal/: Yes: WNL Cardiovascular: Yes: WNL, Regular Rate and Rhythm Musculoskeletal: Yes: WNL Extremities: Yes: WNL Integumentary: Yes: WNL Neurological: Yes: WNL, Alert, Oriented ...Motor Strength: WNL Psychiatric: Yes: WNL, Alert, Oriented - Other Data Labs, Other Data: CBC, BMP 10/20/18 05:20 10/20/18 07:00 INR, PTT INR 0.97 (0.83-1.09) 10/19/18 16:25 Troponin, BNP 10/19/18 10/20/18 16:25 02:31 Troponin I 0.03 < 0.02 B-Natriuretic Peptide 5207.2 H Troponin, BNP 10/19/18 10/20/18 16:25 02:31 Troponin I 0.03 < 0.02 B-Natriuretic Peptide 5207.2 H Imaging - Results Chest X-ray: Image Reviewed (no i/e) EKG: Image Reviewed (nsr wnl) Problem List - Problems (1) COPD (chronic obstructive pulmonary disease) Code(s): J44.9 - CHRONIC OBSTRUCTIVE PULMONARY DISEASE, UNSPECIFIED (2) BRET (acute kidney injury) Code(s): N17.9 - ACUTE KIDNEY FAILURE, UNSPECIFIED (3) Acute and chronic respiratory failure Code(s): J96.20 - ACUTE AND CHR RESP FAILURE, UNSP W HYPOXIA OR HYPERCAPNIA (4) Nsyaz-qq-dnsbzdo kidney injury Code(s): N17.9 - ACUTE KIDNEY FAILURE, UNSPECIFIED; N18.9 - CHRONIC KIDNEY DISEASE, UNSPECIFIED (5) CHF exacerbation Code(s): I50.9 - HEART FAILURE, UNSPECIFIED (6) Chronic renal insufficiency, stage III (moderate) Code(s): N18.3 - CHRONIC KIDNEY DISEASE, STAGE 3 (MODERATE) (7) Diabetes Code(s): E11.9 - TYPE 2 DIABETES MELLITUS WITHOUT COMPLICATIONS (8) Dyspnea Code(s): R06.00 - DYSPNEA, UNSPECIFIED (9) Dysuria-frequency syndrome Code(s): N34.3 - URETHRAL SYNDROME, UNSPECIFIED (10) History of lung cancer Code(s): Z85.118 - PERSONAL HISTORY OF MALIGNANT NEOPLASM OF BRONCHUS AND LUNG (11) Leukocytosis Code(s): D72.829 - ELEVATED WHITE BLOOD CELL COUNT, UNSPECIFIED (12) Leukocytosis Code(s): D72.829 - ELEVATED WHITE BLOOD CELL COUNT, UNSPECIFIED (13) Normocytic anemia Code(s): D64.9 - ANEMIA, UNSPECIFIED (14) Pneumonia Code(s): J18.9 - PNEUMONIA, UNSPECIFIED ORGANISM Assessment/Plan chf diastolic acute dm htn pad esrd Plan hd dapt lasix stress test when stable
--- NOTE | 2018-10-20 09:34 | EKG ---
Test Reason : Blood Pressure : / mmHG Vent. Rate : 075 BPM Atrial Rate : 075 BPM P-R Int : 174 ms QRS Dur : 112 ms QT Int : 402 ms P-R-T Axes : 033 -01 018 degrees QTc Int : 448 ms POOR DATA QUALITY, INTERPRETATION MAY BE ADVERSELY AFFECTED NORMAL SINUS RHYTHM NORMAL ECG WHEN COMPARED WITH ECG OF 01-OCT-2018 12:11, PREMATURE VENTRICULAR COMPLEXES ARE NO LONGER PRESENT Confirmed by MAGGY GILBERT, PER ([id number]) on 10/20/2018 9:33:35 AM Referred By: Confirmed By:PER WINTER MD
[2018-10-20] MEDS ORDERED: DOXAZOSIN MESYLATE 4 MG TABLET PO SCH (10:00)
[2018-10-20] MEDS ORDERED: amLODIPine BESYLATE 10 MG TABLET (FP) PO SCH (10:00)
--- NOTE | 2018-10-20 11:12 | PN ---
Progress Note (short form) - Note Progress Note: Pt examined [place] as [place] could not get his [place]adone Also felt SOB no chest pain he is better now No SOB on 3 liters O2 Vital Signs - 24 hr 10/19/18 10/19/18 10/20/18 22:19 23:00 02:53 Pulse Rate [ 70 70 70 Left Apical] Respiratory 20 20 20 Rate Blood Pressure 196/77 H 189/71 H [Left Arm] Blood Pressure 178/65 H 188/66 H [Right Arm] O2 Sat by Pulse 95 97 98 Oximetry (%) 10/20/18 10/20/18 06:37 10:00 Pulse Rate [ 82 74 Left Apical] Respiratory 20 18 Rate Blood Pressure [Left Arm] Blood Pressure 163/62 142/85 [Right Arm] O2 Sat by Pulse 98 96 Oximetry (%) Current Medications Generic Name Dose Route Start Last Admin Trade Name Freq PRN Reason Stop Dose Admin Amlodipine Besylate 10 mg 10/20/18 10:00 10/20/18 11:41 Norvasc - PO 10 mg DAILY GREGORY Administration Aspirin 81 mg 10/20/18 10:00 10/20/18 11:41 Ecotrin - PO 81 mg DAILY GREGORY Administration Atorvastatin Calcium 20 mg 10/19/18 22:00 10/19/18 22:17 Lipitor - PO 20 mg HS GREGORY Administration Clopidogrel Bisulfate 75 mg 10/20/18 10:00 10/20/18 11:41 Plavix - PO 75 mg DAILY GREGORY Administration Doxazosin Mesylate 4 mg 10/20/18 10:00 10/20/18 11:41 Cardura - PO 4 mg DAILY GREGORY Administration Furosemide 40 mg 10/20/18 06:00 10/20/18 15:33 Lasix Injection - IVPUSH 40 mg BID@0600,1400 GREGORY Administration Heparin Sodium (Porcine) 5,000 unit 10/19/18 22:00 10/20/18 11:41 Heparin - SQ 5,000 unit BID GREGORY Administration Hydralazine HCl 50 mg 10/19/18 22:00 10/20/18 11:41 Apresoline - PO 50 mg BID GREGORY Administration Insulin Aspart 1 vial 10/19/18 22:00 10/20/18 16:46 Novolog Vial Sliding Scale - SQ 6 unit ACHS GREGORY Administration Protocol Labetalol HCl 300 mg 10/19/18 22:00 10/20/18 11:41 Normodyne - PO 300 mg BID GREGORY Administration Methadone HCl 60 mg 10/20/18 06:00 10/20/18 06:34 Dolophine - PO Not Given DAILY@0600 [facility] Non-Formulary Medication 50,000 unit 10/19/18 19:45 Cholecalciferol (Vitamin D3) [Dialyvite Vitamin D3 Max] PO WEEKLY [facility] Laboratory Results - last 24 hr 10/19/18 10/20/18 10/20/18 16:25 02:31 05:20 WBC 7.5 RBC 3.11 L Hgb 9.0 L Hct 28.1 L MCV 90.5 MCH 29.1 MCHC 32.1 RDW 17.9 H Plt Count 149 MPV 9.0 Absolute Neuts (auto) 6.0 Neutrophils % 80.0 Lymphocytes % 9.9 Monocytes % 6.1 Eosinophils % 3.0 Basophils % 1.0 Nucleated RBC % 0 Sodium Potassium Chloride Carbon Dioxide Anion Gap BUN Creatinine Est GFR (CKD-EPI)AfAm Est GFR (CKD-EPI)NonAf Random Glucose 372 H* Calcium Creatine Kinase 58 Troponin I < 0.02 10/20/18 07:00 WBC RBC Hgb Hct MCV MCH MCHC RDW Plt Count MPV Absolute Neuts (auto) Neutrophils % Lymphocytes % Monocytes % Eosinophils % Basophils % Nucleated RBC % Sodium 139 Potassium 3.8 Chloride 101 Carbon Dioxide 30 Anion Gap 8 BUN 47.1 H Creatinine 2.9 H Est GFR (CKD-EPI)AfAm 24.29 Est GFR (CKD-EPI)NonAf 20.96 Random Glucose 76 Calcium 7.3 L Creatine Kinase Troponin I S1 S2 RRR Lungs decreased Abd- soft, NT no edema PLAN on methadone OOB O2 3liters Prednisone resume meds reconciled continue with meds HD per renal Problem List - Problems (1) COPD (chronic obstructive pulmonary disease) Code(s): J44.9 - CHRONIC OBSTRUCTIVE PULMONARY DISEASE, UNSPECIFIED (2) BRET (acute kidney injury) Code(s): N17.9 - ACUTE KIDNEY FAILURE, UNSPECIFIED (3) Acute and chronic respiratory failure Code(s): J96.20 - ACUTE AND CHR RESP FAILURE, UNSP W HYPOXIA OR HYPERCAPNIA (4) Cswpq-be-bllslnd kidney injury Code(s): N17.9 - ACUTE KIDNEY FAILURE, UNSPECIFIED; N18.9 - CHRONIC KIDNEY DISEASE, UNSPECIFIED (5) CHF exacerbation Code(s): I50.9 - HEART FAILURE, UNSPECIFIED
[2018-10-20] MEDS: LABETALOL HCL 200 MG TABLET (FP) PO SCH ×2 (11:41→22:33)
[2018-10-20] MEDS: CLOPIDOGREL BISULFATE 75 MG TABLET (FP) PO SCH (11:41)
[2018-10-20] MEDS: hydrALAZINE HCL 50 MG TABLET (FP) PO SCH ×2 (11:41→22:33)
[2018-10-20] MEDS: HEPARIN NA (PORCINE) 5,000 UNITS/ML 1ML VIAL SQ SCH ×2 (11:41→22:33)
[2018-10-20] MEDS: ASPIRIN COATED 81 MG TABLET.EC PO SCH (11:41)
[2018-10-20] MEDS ORDERED: INSULIN (NOVOLOG) ASPART 100 UNITS/ML 10ML VIAL ONE (16:48)
[2018-10-20] MEDS: predniSONE 20 MG TABLET (UD) PO SCH (19:30)
[2018-10-20] MEDS: INSULIN (LEVEMIR) 100 UNITS/ML UNITS SQ SCH (22:33)
[2018-10-20] MEDS: ATORVASTATIN CA 20 MG TABLET (FP) PO SCH (22:33)
[2018-10-20] MEDS ORDERED: METHADONE 40 MG, METHADONE 20 MG PO ONE (23:00)
[2018-10-20] MEDS ORDERED: METHADONE HCL 10 MG TABLET ONE (23:11)
[2018-10-20] MEDS ORDERED: METHADONE HCL 40 MG DISPERSABLE TABLET ONE (23:11)
[2018-10-21] MEDS ORDERED: METHADONE 40 MG, METHADONE 20 MG PO SCH (06:00)
[2018-10-21] MEDS: INSULIN SLIDING SCALE (NOVOLOG) 1 VIAL SQ SCH ×4 (06:16→22:27)
--- NOTE | 2018-10-21 09:11 | PN ---
Progress Note (short form) - Note Progress Note: Pt examined was sent back from [place] as he could not get his Methadone no SOB no chest pain he feels better on 3 liters O2 Vital Signs - 24 hr 10/20/18 10/20/18 10/20/18 10:00 20:20 21:00 Temperature 98.6 F 97.9 F Pulse Rate 76 88 Pulse Rate [ 74 76 Left Apical] Respiratory 18 20 20 Rate Blood Pressure 154/96 Blood Pressure 142/85 169/74 [Right Arm] O2 Sat by Pulse 96 97 Oximetry (%) 10/20/18 10/21/18 10/21/18 23:00 00:00 06:17 Temperature 97.9 F 97.9 F Pulse Rate 64 68 Pulse Rate [ Left Apical] Respiratory 20 20 18 Rate Blood Pressure 168/76 150/64 Blood Pressure [Right Arm] O2 Sat by Pulse 94 L Oximetry (%) Current Medications Generic Name Dose Route Start Last Admin Trade Name Freq PRN Reason Stop Dose Admin Aspirin 81 mg 10/20/18 10:00 10/20/18 11:41 Ecotrin - PO 81 mg DAILY GREGORY Administration Atorvastatin Calcium 20 mg 10/19/18 22:00 10/20/18 22:33 Lipitor - PO 20 mg HS [facility] Administration Calcium Acetate 667 mg 10/21/18 08:00 Phoslo - PO TIDCM [facility] Clopidogrel Bisulfate 75 mg 10/20/18 10:00 10/20/18 11:41 Plavix - PO 75 mg DAILY [facility] Administration Heparin Sodium (Porcine) 5,000 unit 10/19/18 22:00 10/20/18 22:33 Heparin - SQ 5,000 unit BID [facility] Administration Hydralazine HCl 50 mg 10/19/18 22:00 10/20/18 22:33 Apresoline - PO 50 mg BID [facility] Administration Insulin Aspart 1 vial 10/19/18 22:00 10/21/18 06:16 Novolog Vial Sliding Scale - SQ Not Given ACHS [facility] Protocol Insulin Detemir 15 units 10/20/18 22:00 10/20/18 22:33 Levemir Vial SQ 15 units HS GREGORY Administration Isosorbide Mononitrate 60 mg 10/21/18 10:00 Imdur - PO DAILY [facility] Labetalol HCl 300 mg 10/19/18 22:00 10/20/18 22:33 Normodyne - PO 300 mg BID [facility] Administration Melatonin 5 mg 10/20/18 18:25 Melatonin PO HS PRN INSOMNIA Nifedipine 60 mg 10/21/18 10:00 Procardia Xl - PO DAILY [facility] Non-Formulary Medication 50,000 unit 10/19/18 19:45 Cholecalciferol (Vitamin D3) [Dialyvite Vitamin D3 Max] PO WEEKLY [facility] Prednisone 20 mg 10/20/18 18:30 10/20/18 19:30 Deltasone - PO 20 mg DAILY [facility] Administration Torsemide 80 mg 10/21/18 10:00 Demadex - PO DAILY [facility] S1 S2 RRR Lungs decreased Abd- soft, NT no edema PLAN on methadone OOB O2 3liters physical therapy Prednisone resume meds reconciled continue with meds HD per renal Problem List - Problems (1) COPD (chronic obstructive pulmonary disease) Code(s): J44.9 - CHRONIC OBSTRUCTIVE PULMONARY DISEASE, UNSPECIFIED (2) BRET (acute kidney injury) Code(s): N17.9 - ACUTE KIDNEY FAILURE, UNSPECIFIED (3) Acute and chronic respiratory failure Code(s): J96.20 - ACUTE AND CHR RESP FAILURE, UNSP W HYPOXIA OR HYPERCAPNIA (4) Jwcsi-gd-mjodudd kidney injury Code(s): N17.9 - ACUTE KIDNEY FAILURE, UNSPECIFIED; N18.9 - CHRONIC KIDNEY DISEASE, UNSPECIFIED (5) CHF exacerbation Code(s): I50.9 - HEART FAILURE, UNSPECIFIED
[2018-10-21] MEDS: CALCIUM ACETATE 667 MG CAPSULE (FP) PO SCH ×3 (09:23→18:11)
[2018-10-21] MEDS: LABETALOL HCL 200 MG TABLET (FP) PO SCH ×2 (09:23→22:26)
[2018-10-21] MEDS: CLOPIDOGREL BISULFATE 75 MG TABLET (FP) PO SCH (09:24)
[2018-10-21] MEDS: NIFEdipine E.R 60 MG TABLET (UD) PO SCH (09:24)
[2018-10-21] MEDS: hydrALAZINE HCL 50 MG TABLET (FP) PO SCH ×2 (09:24→22:26)
[2018-10-21] MEDS: predniSONE 20 MG TABLET (UD) PO SCH (09:25)
[2018-10-21] MEDS: ASPIRIN COATED 81 MG TABLET.EC PO SCH (09:25)
[2018-10-21] MEDS: ISOSORBIDE MONONITRATE 60 MG TAB.SR.24H (FP) PO SCH (09:25)
[2018-10-21] MEDS: TORSEMIDE 20 MG TABLET (FP) PO SCH (09:26)
[2018-10-21] MEDS: HEPARIN NA (PORCINE) 5,000 UNITS/ML 1ML VIAL SQ SCH ×2 (09:26→22:26)
--- NOTE | 2018-10-21 19:58 | CON.NEP ---
Consult Consult Specialty:: Nephrology Referred by:: blanka Reason for Consultation:: esrd for hd - History of Present Illness Chief Complaint: needs methadone maintenance History of Present Illness: esrd pt readmitted for lack of methadone needs maintenance HD while in the hosp - Past Medical History Cardio/Vascular: Yes: CHF, HTN, Hyperlipdemia Hepatobiliary: Yes: Hepatitis C Renal/: Yes: UTI Endocrine: Yes: Diabetes Mellitus - Alcohol/Substance Use Hx Alcohol Use: No - Smoking History Smoking history: Former smoker Have you smoked in the past 12 months: No - Social History Usual Living Arrangement: With Spouse ADL: Independent History of Recent Travel: No Home Medications - Allergies Allergies/Adverse Reactions: Allergies Allergy/AdvReac Type Severity Reaction Status Date / Time No Known Allergies Allergy Verified 09/17/18 11:30 - Home Medications Home Medications: Ambulatory Orders Glipizide [Glipizide ER] 10 mg PO DAILY 09/17/18 Atorvastatin Ca [Lipitor] 20 mg PO HS #30 tablet 10/18/18 Clopidogrel Bisulfate [Plavix -] 75 mg PO DAILY #30 tablet 10/18/18 Methadone [Dolophine -] 60 mg PO DAILY@0600 tablet MDD 1 10/18/18 Methadone [Dolophine -] 60 mg PO DAILY@0600 tablet MDD 1 10/18/18 Acetaminophen [Acetaminophen ER] 650 mg PO Q6H PRN 10/19/18 Amlodipine Besylate [Norvasc -] 10 mg PO DAILY 10/19/18 Aspirin [Aspirin EC] 81 mg PO DAILY 10/19/18 Cholecalciferol (Vitamin D3) [Dialyvite Vitamin D3 Max] 50,000 unit PO WEEKLY Doxazosin Mesylate [Cardura -] 4 mg PO DAILY 10/19/18 Furosemide [Lasix -] 40 mg PO DAILY 10/19/18 Hydralazine HCl 50 mg PO BID 10/19/18 Labetalol HCl [Normodyne -] 300 mg PO BID 10/19/18 Nateglinide [Starlix (Nf)] 120 mg PO TID 10/19/18 Nystatin/Triamcinolone Top Cr [Mycolog II Cream -] 1 applic TP BID 10/19/18 Potassium Chloride 10 meq PO BID 10/19/18 Triamterene/Hydrochlorothiazid [Triamterene-Hctz 37.5-25 mg Tb] 1 each PO DAILY 10/19/18 Nephrology Consult - Height Height: 5 ft 5 in - Weight Weight: 156 lb 12.8 oz - BMI Body Mass Index (BMI): 26.1 - Lab Results CBC,BMP: CBC, BMP 10/20/18 05:20 10/20/18 07:00 Anion Gap: Anion Gap Anion Gap 8 MMOL/L (8-16) 10/20/18 07:00 - Physical Examination Vital Signs: Vital Signs Temperature 97.7 F 10/21/18 17:00 Pulse Rate 67 10/21/18 17:00 Respiratory Rate 18 10/21/18 17:00 Blood Pressure 131/56 L 10/21/18 17:00 O2 Sat by Pulse Oximetry (%) 94 L 10/21/18 10:00 Constitutional: Yes: Well Nourished, No Distress, Calm Eyes: Yes: WNL, Conjunctiva Clear, EOM Intact HENT: Yes: WNL, Atraumatic, Normocephalic Neck: Yes: WNL, Supple, Trachea Midline Cardiovascular: Yes: WNL, Regular Rate and Rhythm Respiratory: Yes: WNL, Regular, CTA Bilaterally Gastrointestinal: Yes: WNL, Normal Bowel Sounds Renal/: Yes: WNL Musculoskeletal: Yes: WNL Extremities: Yes: WNL Neurological: Yes: WNL, Alert, Oriented Psychiatric: Yes: WNL, Alert, Oriented Assessment/Plan esrd on hd no sx or signs of fluid overload Plan- hd per schedule
[2018-10-21] MEDS ORDERED: METHADONE HCL 5 MG TABLET PO SCH ×2 (22:00→23:15)
[2018-10-21] MEDS: ATORVASTATIN CA 20 MG TABLET (FP) PO SCH (22:26)
[2018-10-21] MEDS: INSULIN (LEVEMIR) 100 UNITS/ML UNITS SQ SCH (22:27)
[2018-10-21] MEDS ORDERED: METHADONE 40 MG, METHADONE 20 MG PO ONE (23:45)
[2018-10-21] MEDS ORDERED: METHADONE HCL 5 MG TABLET PO ONE (23:55)
[2018-10-22] MEDS ORDERED: METHADONE HCL 40 MG DISPERSABLE TABLET ONE ×2 (00:01→23:44)
[2018-10-22] MEDS ORDERED: METHADONE HCL 10 MG TABLET ONE ×2 (00:01→23:44)
[2018-10-22] MEDS: INSULIN SLIDING SCALE (NOVOLOG) 1 VIAL SQ SCH ×4 (07:10→23:05)
[2018-10-22] MEDS: TORSEMIDE 20 MG TABLET (FP) PO SCH ×2 (10:35→17:13)
[2018-10-22] MEDS: CALCIUM ACETATE 667 MG CAPSULE (FP) PO SCH ×3 (10:38→17:18)
[2018-10-22] MEDS: hydrALAZINE HCL 50 MG TABLET (FP) PO SCH (11:00)
[2018-10-22] MEDS: NIFEdipine E.R 60 MG TABLET (UD) PO SCH (11:00)
[2018-10-22] MEDS: LABETALOL HCL 200 MG TABLET (FP) PO SCH ×2 (11:00→23:04)
--- NOTE | 2018-10-22 11:11 | PN ---
Progress Note, Physician History of Present Illness: 68yo [facility] resident returns complaining of recurrent shortness of breath, his long-term facility not having his home medications and could not get methadone, dyspnea has since resolved. Patient had renal biopsy performed which showed diabetic nephropathy. His last HD session was yesterday. Denies seeing cardiologists as outpatient. - Current Medication List Current Medications: Active Medications Aspirin (Ecotrin -) 81 mg PO DAILY [facility] Last Admin: 10/21/18 09:25 Dose: 81 mg Atorvastatin Calcium (Lipitor -) 20 mg PO HS [facility] Last Admin: 10/21/18 22:26 Dose: 20 mg Calcium Acetate (Phoslo -) 667 mg PO TIDCM [facility] Last Admin: 10/22/18 10:38 Dose: 667 mg Clopidogrel Bisulfate (Plavix -) 75 mg PO DAILY [facility] Last Admin: 10/21/18 09:24 Dose: 75 mg Heparin Sodium (Porcine) (Heparin -) 5,000 unit SQ BID [facility] Last Admin: 10/21/18 22:26 Dose: 5,000 unit Hydralazine HCl (Apresoline -) 50 mg PO BID [facility] Last Admin: 10/21/18 22:26 Dose: 50 mg Sodium Chloride (Normal Saline -) 250 mls @ 3,000 mls/hr IV PRN PRN PRN Reason: Hypotension during Dialysis Stop: 10/22/18 16:00 Insulin Aspart (Novolog Vial Sliding Scale -) 1 vial SQ [facility]; Protocol Last Admin: 10/22/18 07:10 Dose: Not Given Insulin Detemir (Levemir Vial) 15 units SQ HS [facility] Last Admin: 10/21/18 22:27 Dose: 15 units Isosorbide Mononitrate (Imdur -) 60 mg PO DAILY [facility] Last Admin: 10/21/18 09:25 Dose: 60 mg Labetalol HCl (Normodyne -) 300 mg PO BID [facility] Last Admin: 10/21/18 22:26 Dose: 300 mg Melatonin (Melatonin) 5 mg PO HS PRN PRN Reason: INSOMNIA Nifedipine (Procardia Xl -) 60 mg PO DAILY [facility] Last Admin: 10/21/18 09:24 Dose: 60 mg Non-Formulary Medication (Cholecalciferol (Vitamin D3) [Dialyvite Vitamin D3 Max ]) 50,000 unit PO WEEKLY [facility] Prednisone (Deltasone -) 20 mg PO DAILY [facility] Last Admin: 10/21/18 09:25 Dose: 20 mg Torsemide (Demadex -) 80 mg PO DAILY [facility] Last Admin: 10/21/18 09:26 Dose: 80 mg - Objective Vital Signs: Vital Signs Temperature 97.8 F 10/22/18 06:00 Pulse Rate 62 10/22/18 09:49 Respiratory Rate 18 10/22/18 09:49 Blood Pressure 170/62 10/22/18 09:49 O2 Sat by Pulse Oximetry (%) 94 L 10/21/18 22:00 Constitutional: Yes: No Distress, Calm, Thin Neck: Yes: Supple Cardiovascular: Yes: Regular Rate and Rhythm Respiratory: Yes: Regular, Diminished, On Nasal O2 Gastrointestinal: Yes: Normal Bowel Sounds, Soft Edema: No Labs: CBC, BMP 10/20/18 05:20 10/20/18 07:00 INR, PTT INR 0.97 (0.83-1.09) 10/19/18 16:25 - ....Imaging EKG: Report Reviewed (Tele: NSR) Problem List - Problems (1) Hypertensive cardiomegaly with heart failure Code(s): I11.0 - HYPERTENSIVE HEART DISEASE WITH HEART FAILURE (2) End stage renal disease on dialysis Code(s): N18.6 - END STAGE RENAL DISEASE; Z99.2 - DEPENDENCE ON RENAL DIALYSIS (3) Acute and chronic respiratory failure Code(s): J96.20 - ACUTE AND CHR RESP FAILURE, UNSP W HYPOXIA OR HYPERCAPNIA (4) CHF exacerbation Code(s): I50.9 - HEART FAILURE, UNSPECIFIED Qualifiers: Heart failure type: diastolic Qualified Code(s): I50.33 - Acute on chronic diastolic (congestive) heart failure (5) Diabetes Code(s): E11.9 - TYPE 2 DIABETES MELLITUS WITHOUT COMPLICATIONS Qualifiers: Diabetes mellitus type: type 2 Chronic kidney disease stage: on chronic dialysis (6) Dyspnea Code(s): R06.00 - DYSPNEA, UNSPECIFIED (7) Hyperlipidemia associated with type 2 diabetes mellitus Code(s): E11.69 - TYPE 2 DIABETES MELLITUS WITH OTHER SPECIFIED COMPLICATION; E78.5 - HYPERLIPIDEMIA, UNSPECIFIED Assessment/Plan Echo 09/2018 nl LV function, mild MAC, tr MR, RVSP 32 mmHg 1. Shortness of breath 2/2 recurrent acute on chronic diastolic CHF exacerbation 2. Hypertensive heart disease 3. ESRD on HD 4. PAD s/p femoral stent 5. Type 2 DM 6. Hyperlipidemia 7. R sided lung ca s/p partial resection 8. Opiate dependence 9. H/o drug-induced lupus (elevated anti-histone ABs) P1. Volume removal via torsemide 80 qd, HD via PC per renal 2. Continue ASA 81 qd, Lipitor 20 qhs, Plavix 75 qd, Imdur 60 qd, increase labetolol 400 bid, Procardia XL 90 qd 3. D/c hydralazine due to concern for drug induced lupus (elevated anti-histone ABs) 4. Thank you for consultative opportunity
[2018-10-22] MEDS ORDERED: NIFEdipine E.R. 90 MG TABLET (FP) PO SCH (11:23)
--- NOTE | 2018-10-22 12:32 | ECHO ---
Name: MARTHA PAVON Exam:Adult Echocardiogram Study Date: 10/22/2018 08:33 AM Age: 68 yrs Reason For Study: evaluate systolic function Height: 65 in Weight: 153 lb BSA: 1.8 m2 MMode/2D Measurements & Calculations IVSd: 0.92 cm Ao root diam: 4.3 cm LVIDd: 4.7 cm LA dimension: 3.1 cm LVIDs: 3.4 cm ACS: 2.1 cm LVPWd: 0.86 cm IVSs: 1.5 cm LVPWs: 1.4 cm EDV(Teich): 100.9 ml ESV(Teich): 48.1 ml Doppler Measurements & Calculations MV E max erica: 79.5 cm/sec Ao V2 max: 142.5 cm/sec MV A max erica: 122.2 cm/sec Ao max P.1 mmHg MV E/A: 0.65 Ao V2 mean: 104.2 cm/sec Ao mean P.8 mmHg Ao V2 VTI: 34.9 cm MR max erica: 579.1 cm/sec Med Peak E' Erica: 3.6 cm/sec MR max P.2 mmHg Med E/e': 22.0 Lat Peak E' Erica: 4.4 cm/sec Lat E/e': 18.1 Procedure A complete two-dimensional transthoracic echocardiogram was performed (2D, M-mode, Doppler and color flow Doppler). Technically limited study. Left Ventricle The left ventricle is normal in size. Left ventricular systolic function is normal. Ejection Fraction = 55- 60%. Diastolic dysfunction, Grade II, consistent with elevated left atrial pressure. Ratio E/E'= 20. No regional wall motion abnormalities noted. Right Ventricle The right ventricle is normal size. The right ventricular systolic function is normal. Atria The left atrial size is normal. Right atrial size is normal. Mitral Valve There is mild mitral annular calcification. There is mild mitral regurgitation. Tricuspid Valve The tricuspid valve is normal in structure and function. No tricuspid regurgitation. Aortic Valve There is mild to moderate aortic sclerosis.;. Mild aortic regurgitation. Pulmonic Valve The pulmonic valve is not well visualized. Great Vessels Moderate aortic root dilatation. Pericardium/Pleura There is no pericardial effusion. Interpretation Summary Technically limited study The left ventricle is normal in size. Left ventricular systolic function is normal. No regional wall motion abnormalities noted. Ejection Fraction = 55-60%. Diastolic dysfunction, Grade II, consistent with elevated left atrial pressure. Ratio E/E'= 20 The right ventricular systolic function is normal. The left atrial size is normal. Right atrial size is normal. There is mild mitral annular calcification. There is mild mitral regurgitation. There is mild to moderate aortic sclerosis. Mild aortic regurgitation. Moderate aortic root dilatation. There is no pericardial effusion. Morales Hernandez MD 10/22/2018 12:32 PM
--- NOTE | 2018-10-22 13:44 | PN ---
Progress Note (short form) - Note Progress Note: pt seen/ examined in tele chart reviewed awake/ comfortable Being dialyzed Vital Signs Temp 97.8 F 10/22/18 06:00 Pulse 62 10/22/18 09:49 Resp 18 10/22/18 09:49 BP 170/62 10/22/18 09:49 Pulse Ox 94 L 10/21/18 22:00 Intake & Output 10/21/18 10/22/18 10/22/18 23:59 11:59 23:59 Intake Total 1000 240 Output Total 600 Balance 400 240 Weight 156 lb 12.8 oz 159 lb Intake: Oral 1000 240 Output: Urine 600 Void 600 Other: Voiding Method Toilet Toilet # Unmeasured Voids Void 2 2 2 Bowel Movement No Yes Height 5 ft 5 in Body Mass Index (BMI) 26.1 Weight Measurement Method Standing Scale Active Medications Aspirin (Ecotrin -) 81 mg PO DAILY [facility] Last Admin: 10/21/18 09:25 Dose: 81 mg Atorvastatin Calcium (Lipitor -) 20 mg PO HS [facility] Last Admin: 10/21/18 22:26 Dose: 20 mg Calcium Acetate (Phoslo -) 667 mg PO TIDCM [facility] Last Admin: 10/22/18 10:38 Dose: 667 mg Clopidogrel Bisulfate (Plavix -) 75 mg PO DAILY [facility] Last Admin: 10/21/18 09:24 Dose: 75 mg Heparin Sodium (Porcine) (Heparin -) 5,000 unit SQ BID [facility] Last Admin: 10/21/18 22:26 Dose: 5,000 unit Sodium Chloride (Normal Saline -) 250 mls @ 3,000 mls/hr IV PRN PRN PRN Reason: Hypotension during Dialysis Stop: 10/22/18 16:00 Insulin Aspart (Novolog Vial Sliding Scale -) 1 vial SQ [facility]; Protocol Last Admin: 10/22/18 11:56 Dose: Not Given Insulin Detemir (Levemir Vial) 15 units SQ [facility] Last Admin: 10/21/18 22:27 Dose: 15 units Isosorbide Mononitrate (Imdur -) 60 mg PO DAILY [facility] Last Admin: 10/21/18 09:25 Dose: 60 mg Labetalol HCl (Normodyne -) 400 mg PO BID [facility] Melatonin (Melatonin) 5 mg PO HS PRN PRN Reason: INSOMNIA Methadone HCl (Dolophine -) 60 mg PO DAILY@0600 [facility] Nifedipine (Procardia Xl -) 90 mg PO DAILY [facility] Non-Formulary Medication (Cholecalciferol (Vitamin D3) [Dialyvite Vitamin D3 Max ]) 50,000 unit PO WEEKLY [facility] Prednisone (Deltasone -) 20 mg PO DAILY [facility] Last Admin: 10/21/18 09:25 Dose: 20 mg Torsemide (Demadex -) 80 mg PO DAILY [facility] Last Admin: 10/21/18 09:26 Dose: 80 mg CBC, BMP 10/20/18 05:20 10/20/18 07:00 Physical exam S1 S2 RRR Lungs decreased at bases Abd- soft, NT no edema PLAN on methadone OOB O2 3liters physical therapy Prednisone continue with meds HD per renal will follow Problem List - Problems (1) COPD (chronic obstructive pulmonary disease) Code(s): J44.9 - CHRONIC OBSTRUCTIVE PULMONARY DISEASE, UNSPECIFIED (2) BRET (acute kidney injury) Code(s): N17.9 - ACUTE KIDNEY FAILURE, UNSPECIFIED (3) Acute and chronic respiratory failure Code(s): J96.20 - ACUTE AND CHR RESP FAILURE, UNSP W HYPOXIA OR HYPERCAPNIA (4) [id number] kidney injury Code(s): N17.9 - ACUTE KIDNEY FAILURE, UNSPECIFIED; N18.9 - CHRONIC KIDNEY DISEASE, UNSPECIFIED (5) CHF exacerbation Code(s): I50.9 - HEART FAILURE, UNSPECIFIED
[2018-10-22] MEDS ORDERED: SODIUM CHLORIDE 250 ML IV PRN (14:27)
--- NOTE | 2018-10-22 16:03 | PN ---
Progress Note (short form) - Note Progress Note: Renal follow up for BRET requiring dialysis Pt seen and examined during dialysis catheter with good flow, goal UF is 3L BP stable pt offers no acute complaints no sob, cp, abd pain, fever, chills making urine Vital Signs Temperature 98.0 F 10/22/18 14:00 Pulse Rate 67 10/22/18 14:05 Respiratory Rate 18 10/22/18 14:05 Blood Pressure 166/75 10/22/18 14:05 O2 Sat by Pulse Oximetry (%) 94 L 10/21/18 22:00 Intake & Output 10/19/18 10/20/18 10/21/18 10/22/18 23:59 23:59 23:59 23:59 Intake Total 400 1000 240 Output Total 1000 600 Balance -600 400 240 Weight 69.4 kg 72.03 kg 71.123 kg 72.121 kg NAD awake and alert RRR CTA + edema in LE CBC, BMP 10/20/18 05:20 10/20/18 07:00 Current Medications Aspirin (Ecotrin -) 81 mg PO DAILY [facility] Last Admin: 10/21/18 09:25 Dose: 81 mg Atorvastatin Calcium (Lipitor -) 20 mg PO HS [facility] Last Admin: 10/21/18 22:26 Dose: 20 mg Calcium Acetate (Phoslo -) 667 mg PO TIDCM [facility] Last Admin: 10/22/18 10:38 Dose: 667 mg Clopidogrel Bisulfate (Plavix -) 75 mg PO DAILY [facility] Last Admin: 10/21/18 09:24 Dose: 75 mg Heparin Sodium (Porcine) (Heparin -) 5,000 unit SQ BID [facility] Last Admin: 10/21/18 22:26 Dose: 5,000 unit Sodium Chloride (Normal Saline -) 250 mls @ 3,000 mls/hr IV PRN PRN PRN Reason: Hypotension during Dialysis Stop: 10/22/18 22:00 Insulin Aspart (Novolog Vial Sliding Scale -) 1 vial SQ [facility]; Protocol Last Admin: 10/22/18 11:56 Dose: Not Given Insulin Detemir (Levemir Vial) 15 units SQ HS [facility] Last Admin: 10/21/18 22:27 Dose: 15 units Isosorbide Mononitrate (Imdur -) 60 mg PO DAILY [facility] Last Admin: 10/21/18 09:25 Dose: 60 mg Labetalol HCl (Normodyne -) 400 mg PO BID [facility] Melatonin (Melatonin) 5 mg PO HS PRN PRN Reason: INSOMNIA Methadone HCl 40 mg/ Methadone (HCl 20 mg) 60 mg PO DAILY@0600 [facility] Nifedipine (Procardia Xl -) 90 mg PO DAILY [facility] Non-Formulary Medication (Cholecalciferol (Vitamin D3) [Dialyvite Vitamin D3 Max ]) 50,000 unit PO WEEKLY [facility] Prednisone (Deltasone -) 20 mg PO DAILY [facility] Last Admin: 10/21/18 09:25 Dose: 20 mg Torsemide (Demadex -) 80 mg PO DAILY [facility] Last Admin: 10/21/18 09:26 Dose: 80 mg 68 year old gentleman with history of BRET now requiring dialysis, IDDM , CHF, CKD, Hx of lung Ca s/p lobectomy readmitted from Rehab. #BRET requiring dialysis #CHF/Volume overload #DM #hx of substance abuse requiring methadone tolerating diallysis well this am will continue aggressive UF with Hd to improve volume status Continue torsemide daily Trend BUN/Cr to monitor for improvement in renal function continue steroids as per pulmonary Continue Insulin for DM Will follow Dariusz Iniguez DO
[2018-10-22] MEDS: NIFEdipine E.R. 90 MG TABLET (FP) PO SCH (17:12)
[2018-10-22] MEDS: CLOPIDOGREL BISULFATE 75 MG TABLET (FP) PO SCH (17:13)
[2018-10-22] MEDS: ISOSORBIDE MONONITRATE 60 MG TAB.SR.24H (FP) PO SCH (17:14)
[2018-10-22] MEDS: ASPIRIN COATED 81 MG TABLET.EC PO SCH (17:16)
[2018-10-22] MEDS: predniSONE 20 MG TABLET (UD) PO SCH (17:16)
[2018-10-22] MEDS: HEPARIN NA (PORCINE) 5,000 UNITS/ML 1ML VIAL SQ SCH ×2 (17:18→23:11)
[2018-10-22] MEDS: MELATONIN 5 MG TABLETS PO PRN (23:04)
[2018-10-22] MEDS: INSULIN (LEVEMIR) 100 UNITS/ML UNITS SQ SCH (23:04)
[2018-10-22] MEDS: ATORVASTATIN CA 20 MG TABLET (FP) PO SCH (23:04)
[2018-10-22] MEDS ORDERED: METHADONE 40 MG, METHADONE 20 MG PO ONE (23:45)
[2018-10-22] MEDS ORDERED: METHADONE HCL 10 MG TABLET PO ONE (23:55)
[2018-10-23] MEDS ORDERED: METHADONE HCL 10 MG TABLET PO SCH (06:00)
[2018-10-23] MEDS ORDERED: METHADONE 40 MG, METHADONE 20 MG PO SCH ×2 (06:00→12:00)
[2018-10-23] MEDS: INSULIN SLIDING SCALE (NOVOLOG) 1 VIAL SQ SCH ×4 (06:20→22:22)
[2018-10-23 06:56] LABS: BASO % 0.4 % (0-2.0); EOS % 0.5 % (0-4.5); HEMATOCRIT 24.7 % (35.4-49); HEMOGLOBIN 8.1 GM/dL (11.7-16.9); LYMPH % 23.3 % (8-40); MCH 29.2 pg (25.7-33.7); MCHC 32.7 g/dl (32.0-35.9); MEAN CELL VOLUME 89.4 fl (80-96); MONO % 9.8 % (3.8-10.2); RBC 2.76 M/mm3 (4.00-5.60); RDW 18.1 % (11.9-15.9); WHITE BLOOD COUNT 3.8 K/mm3 (4.0-10.0)
[2018-10-23 07:27] LABS: BLOOD UREA NITROGEN 35.7 mg/dL (7-18); CALCIUM 7.6 mg/dL (8.5-10.1); CREATININE 2.2 mg/dL (0.55-1.3); MAGNESIUM 1.8 mg/dL (1.8-2.4); POTASSIUM 3.8 mmol/L (3.5-5.1)
[2018-10-23 08:01] LABS: PLATELET COUNT 237 K/MM3 (134-434)
[2018-10-23] MEDS: CALCIUM ACETATE 667 MG CAPSULE (FP) PO SCH ×3 (08:09→17:26)
--- NOTE | 2018-10-23 09:42 | PN ---
Progress Note, Physician Chief Complaint: Events noted Not in distress Feels better History of Present Illness: Patient was seen and examined. Awake and alert. Chart was reviewed Denies chest pain or palpitations. Less SOB - Current Medication List Current Medications: Active Medications Aspirin (Ecotrin -) 81 mg PO DAILY [facility] Last Admin: 10/22/18 17:16 Dose: 81 mg Atorvastatin Calcium (Lipitor -) 20 mg PO HS [facility] Last Admin: 10/22/18 23:04 Dose: 20 mg Calcium Acetate (Phoslo -) 667 mg PO TIDCM [facility] Last Admin: 10/23/18 08:09 Dose: 667 mg Clopidogrel Bisulfate (Plavix -) 75 mg PO DAILY [facility] Last Admin: 10/22/18 17:13 Dose: 75 mg Heparin Sodium (Porcine) (Heparin -) 5,000 unit SQ BID [facility] Last Admin: 10/22/18 23:11 Dose: 5,000 unit Insulin Aspart (Novolog Vial Sliding Scale -) 1 vial SQ [facility]; Protocol Last Admin: 10/23/18 06:20 Dose: 2 unit Insulin Detemir (Levemir Vial) 15 units SQ HS [facility] Last Admin: 10/22/18 23:04 Dose: 15 units Isosorbide Mononitrate (Imdur -) 60 mg PO DAILY [facility] Last Admin: 10/22/18 17:14 Dose: 60 mg Labetalol HCl (Normodyne -) 400 mg PO BID [facility] Last Admin: 10/22/18 23:04 Dose: 400 mg Melatonin (Melatonin) 5 mg PO HS PRN PRN Reason: INSOMNIA Last Admin: 10/22/18 23:04 Dose: 5 mg Nifedipine (Procardia Xl -) 90 mg PO DAILY [facility] Last Admin: 10/22/18 17:12 Dose: 90 mg Non-Formulary Medication (Cholecalciferol (Vitamin D3) [Dialyvite Vitamin D3 Max ]) 50,000 unit PO WEEKLY [facility] Prednisone (Deltasone -) 20 mg PO DAILY [facility] Last Admin: 10/22/18 17:16 Dose: 20 mg Torsemide (Demadex -) 80 mg PO DAILY [facility] Last Admin: 10/22/18 17:13 Dose: 80 mg - Objective Vital Signs: Vital Signs Temperature 97.8 F 10/23/18 05:00 Pulse Rate 65 10/23/18 05:00 Respiratory Rate 18 10/23/18 05:00 Blood Pressure 141/60 10/23/18 05:00 O2 Sat by Pulse Oximetry (%) 95 10/22/18 21:00 Eyes: Yes: PERRL HENT: Yes: Atraumatic Neck: Yes: Supple Cardiovascular: Yes: Regular Rate and Rhythm, S1, S2 Respiratory: Yes: Diminished Gastrointestinal: Yes: Normal Bowel Sounds, Soft. No: Tenderness Edema: No Additional Findings/Remarks: - Review of Systems Constitutional: denies: Chills, Fever Cardiovascular: denies: Chest Pain, Palpitations, (+) Shortness of Breath Respiratory: denies: Cough, Hemoptysis, Orthopnea, PND Gastrointestinal: denies: Abdominal Pain, Constipation, Diarrhea, Melena, Nausea , Rectal Bleeding, Vomiting Musculoskeletal: denies: Back Pain, Joint Pain Neurological: denies: Dizziness, Headache, Seizure, Syncope Labs: CBC, BMP 10/23/18 06:00 10/23/18 06:00 Problem List - Problems (1) COPD (chronic obstructive pulmonary disease) Code(s): J44.9 - CHRONIC OBSTRUCTIVE PULMONARY DISEASE, UNSPECIFIED (2) End stage renal disease on dialysis Code(s): N18.6 - END STAGE RENAL DISEASE; Z99.2 - DEPENDENCE ON RENAL DIALYSIS (3) Hyperlipidemia associated with type 2 diabetes mellitus Code(s): E11.69 - TYPE 2 DIABETES MELLITUS WITH OTHER SPECIFIED COMPLICATION; E78.5 - HYPERLIPIDEMIA, UNSPECIFIED (4) Hypertensive cardiomegaly with heart failure Code(s): I11.0 - HYPERTENSIVE HEART DISEASE WITH HEART FAILURE (5) Acute and chronic respiratory failure Code(s): J96.20 - ACUTE AND CHR RESP FAILURE, UNSP W HYPOXIA OR HYPERCAPNIA (6) [id number] kidney injury Code(s): N17.9 - ACUTE KIDNEY FAILURE, UNSPECIFIED; N18.9 - CHRONIC KIDNEY DISEASE, UNSPECIFIED (7) CHF exacerbation Code(s): I50.9 - HEART FAILURE, UNSPECIFIED Qualifiers: Heart failure type: diastolic Qualified Code(s): I50.33 - Acute on chronic diastolic (congestive) heart failure (8) Diabetes Code(s): E11.9 - TYPE 2 DIABETES MELLITUS WITHOUT COMPLICATIONS Qualifiers: Diabetes mellitus type: type 2 Chronic kidney disease stage: on chronic dialysis (9) Dyspnea Code(s): R06.00 - DYSPNEA, UNSPECIFIED (10) History of lung cancer Code(s): Z85.118 - PERSONAL HISTORY OF MALIGNANT NEOPLASM OF BRONCHUS AND LUNG (11) Normocytic anemia Code(s): D64.9 - ANEMIA, UNSPECIFIED Assessment/Plan 1. Shortness of breath due to recurrent acute on chronic diastolic CHF exacerbation 2. Hypertensive heart disease 3. ESRD on HD 4. PAD s/p femoral stent 5. Type 2 DM 6. Hyperlipidemia 7. Right sided lung CA s/p partial resection 8. Opiate dependence 9. History of drug-induced lupus (elevated anti-histone ABs) PLAN: 1. Continue Torsemide 80 mg QD and HD via PC 2. Continue ASA 81 mg QD, Lipitor 20 mg QHS, Plavix 75 mg QD, Imdur 60 mg QD, Labetolol 400 mg BID and Procardia XL 90 mg QD 3. Hydralazine stopped due to concern for drug induced lupus (elevated anti- histone ABs) Further plans are to follow Morales Hernandez MD
[2018-10-23] MEDS: ASPIRIN COATED 81 MG TABLET.EC PO SCH (10:17)
[2018-10-23] MEDS: LABETALOL HCL 200 MG TABLET (FP) PO SCH ×2 (10:17→22:22)
[2018-10-23] MEDS: predniSONE 20 MG TABLET (UD) PO SCH (10:17)
[2018-10-23] MEDS: CLOPIDOGREL BISULFATE 75 MG TABLET (FP) PO SCH (10:17)
[2018-10-23] MEDS: HEPARIN NA (PORCINE) 5,000 UNITS/ML 1ML VIAL SQ SCH ×2 (10:17→22:20)
[2018-10-23] MEDS: ISOSORBIDE MONONITRATE 60 MG TAB.SR.24H (FP) PO SCH (10:17)
[2018-10-23] MEDS: TORSEMIDE 20 MG TABLET (FP) PO SCH (10:18)
[2018-10-23] MEDS: NIFEdipine E.R. 90 MG TABLET (FP) PO SCH (10:20)
--- NOTE | 2018-10-23 10:23 | PN ---
Progress Note (short form) - Note Progress Note: Pt examined ambulating better no SOB no chest pain he feels better on 3 liters O2 Vital Signs - 24 hr 10/22/18 10/22/18 10/22/18 12:30 12:35 13:05 Temperature 98 F Pulse Rate 71 60 60 Respiratory 18 18 18 Rate Blood Pressure 179/70 H 183/79 H 152/71 O2 Sat by Pulse Oximetry (%) 10/22/18 10/22/18 10/22/18 13:35 14:00 14:05 Temperature 98.0 F Pulse Rate 68 66 67 Respiratory 18 18 Rate Blood Pressure 159/78 159/78 166/75 O2 Sat by Pulse Oximetry (%) 10/22/18 10/22/18 10/22/18 14:35 15:05 15:35 Temperature Pulse Rate 72 67 68 Respiratory 18 18 18 Rate Blood Pressure 158/73 157/67 159/66 O2 Sat by Pulse Oximetry (%) 10/22/18 10/22/18 10/22/18 16:05 16:30 17:00 Temperature 98.4 F Pulse Rate 67 65 72 Respiratory 18 18 20 Rate Blood Pressure 164/71 174/68 H 166/64 O2 Sat by Pulse Oximetry (%) 10/22/18 10/23/18 10/23/18 21:00 01:00 05:00 Temperature 98.2 F 97.9 F 97.8 F Pulse Rate 71 83 65 Respiratory 19 20 18 Rate Blood Pressure 158/61 137/57 L 141/60 O2 Sat by Pulse 95 Oximetry (%) 10/23/18 09:00 Temperature 98 F Pulse Rate 70 Respiratory 18 Rate Blood Pressure 130/58 L O2 Sat by Pulse Oximetry (%) Current Medications Generic Name Dose Route Start Last Admin Trade Name Freq PRN Reason Stop Dose Admin Aspirin 81 mg 10/20/18 10:00 10/22/18 17:16 Ecotrin - PO 81 mg DAILY [facility] Administration Atorvastatin Calcium 20 mg 10/19/18 22:00 10/22/18 23:04 Lipitor - PO 20 mg HS [facility] Administration Calcium Acetate 667 mg 10/21/18 08:00 10/23/18 08:09 Phoslo - PO 667 mg TIDCM [facility] Administration Clopidogrel Bisulfate 75 mg 10/20/18 10:00 10/22/18 17:13 Plavix - PO 75 mg DAILY [facility] Administration Heparin Sodium (Porcine) 5,000 unit 10/19/18 22:00 10/22/18 23:11 Heparin - SQ 5,000 unit BID [facility] Administration Insulin Aspart 1 vial 10/19/18 22:00 10/23/18 06:20 Novolog Vial Sliding Scale - SQ 2 unit ACHS [facility] Administration Protocol Insulin Detemir 15 units 10/20/18 22:00 10/22/18 23:04 Levemir Vial SQ 15 units HS [facility] Administration Isosorbide Mononitrate 60 mg 10/21/18 10:00 10/22/18 17:14 Imdur - PO 60 mg DAILY [facility] Administration Labetalol HCl 400 mg 10/22/18 11:23 10/22/18 23:04 Normodyne - PO 400 mg BID [facility] Administration Melatonin 5 mg 10/20/18 18:25 10/22/18 23:04 Melatonin PO 5 mg HS PRN Administration INSOMNIA Nifedipine 90 mg 10/22/18 16:45 10/22/18 17:12 Procardia Xl - PO 90 mg DAILY [facility] Administration Non-Formulary Medication 50,000 unit 10/19/18 19:45 Cholecalciferol (Vitamin D3) [Dialyvite Vitamin D3 Max] PO WEEKLY [facility] Prednisone 20 mg 10/20/18 18:30 10/22/18 17:16 Deltasone - PO 20 mg DAILY [facility] Administration Torsemide 80 mg 10/21/18 10:00 10/22/18 17:13 Demadex - PO 80 mg DAILY [facility] Administration Laboratory Results - last 24 hr 10/22/18 10/22/18 10/22/18 11:54 16:33 21:15 WBC RBC Hgb Hct MCV MCH MCHC RDW Plt Count MPV Absolute Neuts (auto) Neutrophils % Lymphocytes % Monocytes % Eosinophils % Basophils % Nucleated RBC % Sodium Potassium Chloride Carbon Dioxide Anion Gap BUN Creatinine Est GFR (CKD-EPI)AfAm Est GFR (CKD-EPI)NonAf POC Glucometer 143 195 398 Random Glucose Calcium Phosphorus Magnesium 10/23/18 10/23/18 10/23/18 05:51 06:00 06:00 WBC 3.8 L RBC 2.76 L Hgb 8.1 L Hct 24.7 L MCV 89.4 MCH 29.2 MCHC 32.7 RDW 18.1 H Plt Count 237 D MPV 8.0 D Absolute Neuts (auto) 2.5 Neutrophils % 66.0 Lymphocytes % 23.3 D Monocytes % 9.8 Eosinophils % 0.5 D Basophils % 0.4 Nucleated RBC % 0 Sodium 140 Potassium 3.8 Chloride 101 Carbon Dioxide 35 H Anion Gap 5 L BUN 35.7 H Creatinine 2.2 H Est GFR (CKD-EPI)AfAm 33.92 Est GFR (CKD-EPI)NonAf 29.27 POC Glucometer 157 Random Glucose 144 H Calcium 7.6 L Phosphorus 3.0 Magnesium 1.8 S1 S2 RRR Lungs decreased Abd- soft, NT no edema PLAN on methadone OOB O2 3liters physical therapy Prednisone resume meds reconciled continue with meds HD per renal will need to set up outpt dialysis plan for dc home - likely tomorrow Problem List - Problems (1) COPD (chronic obstructive pulmonary disease) Code(s): J44.9 - CHRONIC OBSTRUCTIVE PULMONARY DISEASE, UNSPECIFIED (2) BRET (acute kidney injury) Code(s): N17.9 - ACUTE KIDNEY FAILURE, UNSPECIFIED (3) Acute and chronic respiratory failure Code(s): J96.20 - ACUTE AND CHR RESP FAILURE, UNSP W HYPOXIA OR HYPERCAPNIA (4) [id number] kidney injury Code(s): N17.9 - ACUTE KIDNEY FAILURE, UNSPECIFIED; N18.9 - CHRONIC KIDNEY DISEASE, UNSPECIFIED (5) CHF exacerbation Code(s): I50.9 - HEART FAILURE, UNSPECIFIED Qualifiers: Heart failure type: diastolic Qualified Code(s): I50.33 - Acute on chronic diastolic (congestive) heart failure
[2018-10-23] MEDS: PANTOPRAZOLE 40 MG TABLET (FP) PO SCH (15:23)
--- NOTE | 2018-10-23 17:02 | PN ---
Progress Note (short form) - Note Progress Note: Renal follow up for BRET requiring dialysis Pt seen and examined at the bedside awake and alert no acute complaints no sob, cp, abd pain Vital Signs Temperature 98.6 F 10/23/18 14:00 Pulse Rate 63 10/23/18 14:00 Respiratory Rate 18 10/23/18 09:00 Blood Pressure 130/47 L 10/23/18 14:00 O2 Sat by Pulse Oximetry (%) 95 10/22/18 21:00 Intake & Output 10/20/18 10/21/18 10/22/18 10/23/18 23:59 23:59 23:59 23:59 Intake Total 400 1000 740 690 Output Total 1000 600 Balance -600 400 740 690 Weight 72.03 kg 71.123 kg 72.121 kg 71.214 kg NAD awake and alert RRR CTA + edema in LE CBC, BMP 10/23/18 06:00 10/23/18 06:00 Current Medications Aspirin (Ecotrin -) 81 mg PO DAILY [facility] Last Admin: 10/23/18 10:17 Dose: 81 mg Atorvastatin Calcium (Lipitor -) 20 mg PO HS [facility] Last Admin: 10/22/18 23:04 Dose: 20 mg Calcium Acetate (Phoslo -) 667 mg PO TIDCM [facility] Last Admin: 10/23/18 12:12 Dose: 667 mg Clopidogrel Bisulfate (Plavix -) 75 mg PO DAILY [facility] Last Admin: 10/23/18 10:17 Dose: 75 mg Heparin Sodium (Porcine) (Heparin -) 5,000 unit SQ BID [facility] Last Admin: 10/23/18 10:17 Dose: 5,000 unit Insulin Aspart (Novolog Vial Sliding Scale -) 1 vial SQ [facility]; Protocol Last Admin: 10/23/18 11:43 Dose: Not Given Insulin Detemir (Levemir Vial) 15 units SQ [facility] Last Admin: 10/22/18 23:04 Dose: 15 units Isosorbide Mononitrate (Imdur -) 60 mg PO DAILY [facility] Last Admin: 10/23/18 10:17 Dose: 60 mg Labetalol HCl (Normodyne -) 400 mg PO BID [facility] Last Admin: 10/23/18 10:17 Dose: 400 mg Melatonin (Melatonin) 5 mg PO HS PRN PRN Reason: INSOMNIA Last Admin: 10/22/18 23:04 Dose: 5 mg Methadone HCl 40 mg/ Methadone (HCl 20 mg) 60 mg PO HS [facility] Nifedipine (Procardia Xl -) 90 mg PO DAILY [facility] Last Admin: 10/23/18 10:20 Dose: 90 mg Non-Formulary Medication (Cholecalciferol (Vitamin D3) [Dialyvite Vitamin D3 Max ]) 50,000 unit PO WEEKLY [facility] Pantoprazole Sodium (Protonix -) 40 mg PO DAILY [facility] Last Admin: 10/23/18 15:23 Dose: 40 mg Prednisone (Deltasone -) 20 mg PO DAILY [facility] Last Admin: 10/23/18 10:17 Dose: 20 mg Torsemide (Demadex -) 80 mg PO DAILY [facility] Last Admin: 10/23/18 10:18 Dose: 80 mg 68 year old gentleman with history of BRET now requiring dialysis, IDDM , CHF, CKD, Hx of lung Ca s/p lobectomy readmitted from Rehab. #BRET requiring dialysis #CHF/Volume overload #DM #hx of substance abuse requiring methadone no acute need for [employer] today next dialysis planed for tomorrow UF as tolerated continue oral torsemide discharge planning outpatient HD unit placement pending Dariusz Iniguez DO
[2018-10-23] MEDS ORDERED: METHADONE HCL 40 MG DISPERSABLE TABLET PO SCH (22:00)
[2018-10-23] MEDS ORDERED: METHADONE HCL 40 MG DISPERSABLE TABLET ONE ×2 (22:11→22:17)
[2018-10-23] MEDS ORDERED: METHADONE HCL 10 MG TABLET ONE (22:11)
[2018-10-23] MEDS: METHADONE 40 MG, METHADONE 20 MG PO SCH (22:14)
[2018-10-23] MEDS: MELATONIN 5 MG TABLETS PO PRN (22:22)
[2018-10-23] MEDS: ATORVASTATIN CA 20 MG TABLET (FP) PO SCH (22:22)
[2018-10-23] MEDS: INSULIN (LEVEMIR) 100 UNITS/ML UNITS SQ SCH (22:22)
[2018-10-24] MEDS ORDERED: GLUCAGON 1 MG KIT ONE (06:04)
[2018-10-24] MEDS: INSULIN SLIDING SCALE (NOVOLOG) 1 VIAL SQ SCH ×4 (07:19→21:59)
[2018-10-24] MEDS: CALCIUM ACETATE 667 MG CAPSULE (FP) PO SCH ×3 (07:58→16:59)
[2018-10-24 08:34] LABS: HEMATOCRIT 24.6 % (35.4-49); HEMOGLOBIN 8.3 GM/dL (11.7-16.9); MCH 29.9 pg (25.7-33.7); MCHC 33.6 g/dl (32.0-35.9); MEAN CELL VOLUME 88.9 fl (80-96); MEAN PLT VOLUME 7.8 fl (7.5-11.1); PLATELET COUNT 258 K/MM3 (134-434); RBC 2.77 M/mm3 (4.00-5.60); RDW 17.7 % (11.9-15.9); WHITE BLOOD COUNT 6.3 K/mm3 (4.0-10.0)
[2018-10-24] MEDS ORDERED: SODIUM CHLORIDE 250 ML IV PRN (09:00)
[2018-10-24] MEDS ORDERED: EPOETIN ALFA 20,000 UNIT/1 ML VIAL IVPUSH ONE (09:00)
[2018-10-24 09:10] LABS: BLOOD UREA NITROGEN 62.1 mg/dL (7-18); CALCIUM 8.1 mg/dL (8.5-10.1); CREATININE 2.8 mg/dL (0.55-1.3); PHOSPHOROUS 3.9 mg/dL (2.5-4.9); POTASSIUM 3.9 mmol/L (3.5-5.1)
--- NOTE | 2018-10-24 10:08 | PN ---
Progress Note, Physician History of Present Illness: Dyspnea improving, denies chest pain, undergoing HD. - Current Medication List Current Medications: Active Medications Aspirin (Ecotrin -) 81 mg PO DAILY [facility] Last Admin: 10/23/18 10:17 Dose: 81 mg Atorvastatin Calcium (Lipitor -) 20 mg PO HS [facility] Last Admin: 10/23/18 22:22 Dose: 20 mg Calcium Acetate (Phoslo -) 667 mg PO TIDCM [facility] Last Admin: 10/24/18 07:58 Dose: 667 mg Clopidogrel Bisulfate (Plavix -) 75 mg PO DAILY [facility] Last Admin: 10/23/18 10:17 Dose: 75 mg Heparin Sodium (Porcine) (Heparin -) 5,000 unit SQ BID [facility] Last Admin: 10/23/18 22:20 Dose: 5,000 unit Sodium Chloride (Normal Saline -) 250 mls @ 3,000 mls/hr IV PRN PRN PRN Reason: Hypotension during Dialysis Stop: 10/24/18 22:00 Insulin Aspart (Novolog Vial Sliding Scale -) 1 vial SQ [facility]; Protocol Last Admin: 10/24/18 07:19 Dose: Not Given Insulin Detemir (Levemir Vial) 15 units SQ [facility] Last Admin: 10/23/18 22:22 Dose: 15 units Isosorbide Mononitrate (Imdur -) 60 mg PO DAILY [facility] Last Admin: 10/23/18 10:17 Dose: 60 mg Labetalol HCl (Normodyne -) 400 mg PO BID [facility] Last Admin: 10/23/18 22:22 Dose: 400 mg Melatonin (Melatonin) 5 mg PO HS PRN PRN Reason: INSOMNIA Last Admin: 10/23/18 22:22 Dose: 5 mg Methadone HCl 40 mg/ Methadone (HCl 20 mg) 60 mg PO HS [facility] Last Admin: 10/23/18 22:14 Dose: 60 mg Nifedipine (Procardia Xl -) 90 mg PO DAILY [facility] Last Admin: 10/23/18 10:20 Dose: 90 mg Non-Formulary Medication (Cholecalciferol (Vitamin D3) [Dialyvite Vitamin D3 Max ]) 50,000 unit PO WEEKLY [facility] Pantoprazole Sodium (Protonix -) 40 mg PO DAILY [facility] Last Admin: 10/23/18 15:23 Dose: 40 mg Prednisone (Deltasone -) 20 mg PO DAILY [facility] Last Admin: 10/23/18 10:17 Dose: 20 mg Torsemide (Demadex -) 80 mg PO DAILY [facility] Last Admin: 10/23/18 10:18 Dose: 80 mg - Objective Vital Signs: Vital Signs Temperature 98 F 10/24/18 09:00 Pulse Rate 54 L 10/24/18 09:00 Respiratory Rate 18 10/24/18 09:00 Blood Pressure 148/60 10/24/18 09:00 O2 Sat by Pulse Oximetry (%) 95 10/23/18 21:00 Constitutional: Yes: No Distress, Calm Neck: Yes: Supple Cardiovascular: Yes: Regular Rate and Rhythm Respiratory: Yes: Regular, Diminished, On Nasal O2 Gastrointestinal: Yes: Normal Bowel Sounds, Soft Edema: No Labs: CBC, BMP 10/24/18 07:50 10/24/18 07:50 INR, PTT INR 0.97 (0.83-1.09) 10/19/18 16:25 - ....Imaging EKG: Report Reviewed (Tele: NSR) Problem List - Problems (1) Hypertensive cardiomegaly with heart failure Code(s): I11.0 - HYPERTENSIVE HEART DISEASE WITH HEART FAILURE (2) End stage renal disease on dialysis Code(s): N18.6 - END STAGE RENAL DISEASE; Z99.2 - DEPENDENCE ON RENAL DIALYSIS (3) Acute and chronic respiratory failure Code(s): J96.20 - ACUTE AND CHR RESP FAILURE, UNSP W HYPOXIA OR HYPERCAPNIA (4) CHF exacerbation Code(s): I50.9 - HEART FAILURE, UNSPECIFIED Qualifiers: Heart failure type: diastolic Qualified Code(s): I50.33 - Acute on chronic diastolic (congestive) heart failure (5) Diabetes Code(s): E11.9 - TYPE 2 DIABETES MELLITUS WITHOUT COMPLICATIONS Qualifiers: Diabetes mellitus type: type 2 Chronic kidney disease stage: on chronic dialysis (6) Dyspnea Code(s): R06.00 - DYSPNEA, UNSPECIFIED (7) Hyperlipidemia associated with type 2 diabetes mellitus Code(s): E11.69 - TYPE 2 DIABETES MELLITUS WITH OTHER SPECIFIED COMPLICATION; E78.5 - HYPERLIPIDEMIA, UNSPECIFIED Assessment/Plan Echo 09/2018 nl LV function, mild MAC, tr MR, RVSP 32 mmHg 1. Shortness of breath due to recurrent acute on chronic diastolic CHF exacerbation resolving 2. Hypertensive heart disease 3. ESRD on HD 4. PAD s/p femoral stent 5. Type 2 DM 6. Hyperlipidemia 7. Right sided lung CA s/p partial resection 8. Opiate dependence 9. History of drug-induced lupus (elevated anti-histone ABs) PLAN: 1. Continue Torsemide 80 mg QD and HD via PC 2. Continue ASA 81 mg QD, Lipitor 20 mg QHS, Plavix 75 mg QD, Imdur 60 mg QD, Labetolol 400 mg BID and Procardia XL 90 mg QD 3. Hydralazine stopped due to concern for drug induced lupus (elevated anti- histone ABs) 4. Prednisone taper with GI protection, DVT prophylaxis
--- NOTE | 2018-10-24 10:34 | PN ---
Progress Note (short form) - Note Progress Note: Pt examined undergoing dialysis O2 sat 98% on 2liters no SOB no chest pain he feels better Vital Signs - 24 hr 10/23/18 10/23/18 10/23/18 14:00 17:00 21:00 Temperature 98.6 F 97.7 F 98.9 F Pulse Rate 63 103 H 71 Respiratory 20 18 Rate Blood Pressure 130/47 L 134/98 148/89 O2 Sat by Pulse 95 Oximetry (%) 10/24/18 10/24/18 10/24/18 02:00 06:00 09:00 Temperature 97.6 F 98.7 F 98 F Pulse Rate 56 L 56 L 54 L Respiratory 20 17 18 Rate Blood Pressure 128/51 L 136/63 148/60 O2 Sat by Pulse Oximetry (%) Current Medications Generic Name Dose Route Start Last Admin Trade Name Freq PRN Reason Stop Dose Admin Aspirin 81 mg 10/20/18 10:00 10/23/18 10:17 Ecotrin - PO 81 mg DAILY [facility] Administration Atorvastatin Calcium 20 mg 10/19/18 22:00 10/23/18 22:22 Lipitor - PO 20 mg HS [facility] Administration Calcium Acetate 667 mg 10/21/18 08:00 10/24/18 07:58 Phoslo - PO 667 mg TIDCM [facility] Administration Clopidogrel Bisulfate 75 mg 10/20/18 10:00 10/23/18 10:17 Plavix - PO 75 mg DAILY [facility] Administration Heparin Sodium (Porcine) 5,000 unit 10/19/18 22:00 10/23/18 22:20 Heparin - SQ 5,000 unit BID [facility] Administration Sodium Chloride 250 mls @ 3,000 mls/hr 10/24/18 09:00 Normal Saline - IV 10/24/18 22:00 PRN PRN Hypotension during Dialysis Insulin Aspart 1 vial 10/19/18 22:00 10/24/18 07:19 Novolog Vial Sliding Scale - SQ Not Given ACHS [facility] Protocol Insulin Detemir 15 units 10/20/18 22:00 10/23/18 22:22 Levemir Vial SQ 15 units HS [facility] Administration Isosorbide Mononitrate 60 mg 10/21/18 10:00 10/23/18 10:17 Imdur - PO 60 mg DAILY [facility] Administration Labetalol HCl 400 mg 10/22/18 11:23 10/23/18 22:22 Normodyne - PO 400 mg BID [facility] Administration Melatonin 5 mg 10/20/18 18:25 10/23/18 22:22 Melatonin PO 5 mg HS PRN Administration INSOMNIA Methadone HCl 40 mg/ Methadone 60 mg 10/23/18 22:00 10/23/18 22:14 HCl 20 mg PO 60 mg HS [facility] Administration Nifedipine 90 mg 10/22/18 16:45 10/23/18 10:20 Procardia Xl - PO 90 mg DAILY [facility] Administration Non-Formulary Medication 50,000 unit 10/19/18 19:45 Cholecalciferol (Vitamin D3) [Dialyvite Vitamin D3 Max] PO WEEKLY [facility] Pantoprazole Sodium 40 mg 10/23/18 14:15 10/23/18 15:23 Protonix - PO 40 mg DAILY [facility] Administration Prednisone 20 mg 10/20/18 18:30 10/23/18 10:17 Deltasone - PO 20 mg DAILY [facility] Administration Torsemide 80 mg 10/21/18 10:00 10/23/18 10:18 Demadex - PO 80 mg DAILY [facility] Administration Laboratory Results - last 24 hr 10/23/18 10/23/18 10/23/18 11:35 17:21 20:47 WBC RBC Hgb Hct MCV MCH MCHC RDW Plt Count MPV Sodium Potassium Chloride Carbon Dioxide Anion Gap BUN Creatinine Est GFR (CKD-EPI)AfAm Est GFR (CKD-EPI)NonAf POC Glucometer 101 364 414 Random Glucose Calcium Phosphorus 10/24/18 10/24/18 10/24/18 05:54 06:51 07:50 WBC 6.3 RBC 2.77 L Hgb 8.3 L Hct 24.6 L MCV 88.9 MCH 29.9 MCHC 33.6 RDW 17.7 H Plt Count 258 MPV 7.8 Sodium Potassium Chloride Carbon Dioxide Anion Gap BUN Creatinine Est GFR (CKD-EPI)AfAm Est GFR (CKD-EPI)NonAf POC Glucometer 40 173 Random Glucose Calcium Phosphorus 10/24/18 07:50 WBC RBC Hgb Hct MCV MCH MCHC RDW Plt Count MPV Sodium 136 Potassium 3.9 Chloride 99 Carbon Dioxide 31 Anion Gap 6 L BUN 62.1 H Creatinine 2.8 H Est GFR (CKD-EPI)AfAm 25.34 Est GFR (CKD-EPI)NonAf 21.86 POC Glucometer Random Glucose 185 H Calcium 8.1 L Phosphorus 3.9 S1 S2 RRR Lungs decreased Abd- soft, NT no edema PLAN on methadone OOB O2 2-3 liters physical therapy Prednisone taper meds reconciled continue with meds HD per renal will need to set up outpt dialysis plan for dc home Problem List - Problems (1) COPD (chronic obstructive pulmonary disease) Code(s): J44.9 - CHRONIC OBSTRUCTIVE PULMONARY DISEASE, UNSPECIFIED (2) BRET (acute kidney injury) Code(s): N17.9 - ACUTE KIDNEY FAILURE, UNSPECIFIED (3) Acute and chronic respiratory failure Code(s): J96.20 - ACUTE AND CHR RESP FAILURE, UNSP W HYPOXIA OR HYPERCAPNIA (4) [id number] kidney injury Code(s): N17.9 - ACUTE KIDNEY FAILURE, UNSPECIFIED; N18.9 - CHRONIC KIDNEY DISEASE, UNSPECIFIED (5) CHF exacerbation Code(s): I50.9 - HEART FAILURE, UNSPECIFIED Qualifiers: Heart failure type: diastolic Qualified Code(s): I50.33 - Acute on chronic diastolic (congestive) heart failure
[2018-10-24] MEDS: CLOPIDOGREL BISULFATE 75 MG TABLET (FP) PO SCH (12:50)
[2018-10-24] MEDS: PANTOPRAZOLE 40 MG TABLET (FP) PO SCH (12:50)
[2018-10-24] MEDS: predniSONE 20 MG TABLET (UD) PO SCH (12:50)
[2018-10-24] MEDS: ISOSORBIDE MONONITRATE 60 MG TAB.SR.24H (FP) PO SCH (12:51)
[2018-10-24] MEDS: ASPIRIN COATED 81 MG TABLET.EC PO SCH (12:51)
[2018-10-24] MEDS: HEPARIN NA (PORCINE) 5,000 UNITS/ML 1ML VIAL SQ SCH ×2 (12:51→21:52)
[2018-10-24] MEDS ORDERED: PT OWN MED DRAWER 7, Y5N ONE (14:29)
[2018-10-24] MEDS ORDERED: ALTEPLASE 2 MG VIAL IVPUSH ONE ×2 (15:00)
--- NOTE | 2018-10-24 15:15 | PN ---
Progress Note (short form) - Note Progress Note: Renal follow up for BRET requiring dialysis Pt seen and examined at the bedside s/p dialysis this AM. Catheter with sub-optimal blood flow. pt reports that he still feels very short of breath, feels weak and has difficultly ambulating. Vital Signs Temperature 98.6 F 10/24/18 15:01 Pulse Rate 73 10/24/18 15:01 Respiratory Rate 18 10/24/18 15:01 Blood Pressure 133/64 10/24/18 15:01 O2 Sat by Pulse Oximetry (%) 95 10/23/18 21:00 Intake & Output 10/21/18 10/22/18 10/23/18 10/24/18 23:59 23:59 23:59 23:59 Intake Total 3147 879 8568 730 Output Total 600 Balance 051 184 1937 730 Weight 71.123 kg 72.121 kg 71.214 kg 71.305 kg NAD awake and alert RRR CTA trace edema in LE CBC, BMP 10/24/18 07:50 10/24/18 07:50 Current Medications Aspirin (Ecotrin -) 81 mg PO DAILY [facility] Last Admin: 10/24/18 12:51 Dose: 81 mg Atorvastatin Calcium (Lipitor -) 20 mg PO HS [facility] Last Admin: 10/23/18 22:22 Dose: 20 mg Calcium Acetate (Phoslo -) 667 mg PO TIDCM [facility] Last Admin: 10/24/18 12:50 Dose: 667 mg Clopidogrel Bisulfate (Plavix -) 75 mg PO DAILY [facility] Last Admin: 10/24/18 12:50 Dose: 75 mg Heparin Sodium (Porcine) (Heparin -) 5,000 unit SQ BID [facility] Last Admin: 10/24/18 12:51 Dose: 5,000 unit Sodium Chloride (Normal Saline -) 250 mls @ 3,000 mls/hr IV PRN PRN PRN Reason: Hypotension during Dialysis Stop: 10/24/18 22:00 Insulin Aspart (Novolog Vial Sliding Scale -) 1 vial SQ [facility]; Protocol Last Admin: 10/24/18 12:13 Dose: Not Given Insulin Detemir (Levemir Vial) 15 units SQ HS [facility] Last Admin: 10/23/18 22:22 Dose: 15 units Isosorbide Mononitrate (Imdur -) 60 mg PO DAILY [facility] Last Admin: 10/24/18 12:51 Dose: 60 mg Labetalol HCl (Normodyne -) 400 mg PO BID [facility] Last Admin: 10/23/18 22:22 Dose: 400 mg Melatonin (Melatonin) 5 mg PO HS PRN PRN Reason: INSOMNIA Last Admin: 10/23/18 22:22 Dose: 5 mg Methadone HCl 40 mg/ Methadone (HCl 20 mg) 60 mg PO HS [facility] Last Admin: 10/23/18 22:14 Dose: 60 mg Nifedipine (Procardia Xl -) 90 mg PO DAILY [facility] Last Admin: 10/23/18 10:20 Dose: 90 mg Non-Formulary Medication (Cholecalciferol (Vitamin D3) [Dialyvite Vitamin D3 Max ]) 50,000 unit PO WEEKLY [facility] Pantoprazole Sodium (Protonix -) 40 mg PO DAILY [facility] Last Admin: 10/24/18 12:50 Dose: 40 mg Prednisone (Deltasone -) 20 mg PO DAILY [facility] Last Admin: 10/24/18 12:50 Dose: 20 mg Torsemide (Demadex -) 80 mg PO DAILY [facility] Last Admin: 10/23/18 10:18 Dose: 80 mg 68 year old gentleman with history of BRET now requiring dialysis, IDDM , CHF, CKD, Hx of lung Ca s/p lobectomy readmitted from Rehab. #BRET requiring dialysis #CHF/Volume overload #DM #hx of substance abuse requiring methadone Tolerated dialysis, will use cath-fabian to clear any intra-catheter stenosis tolerated 3.5L UF Continue oral diuretics first available outpatient dialysis spot is next Monday. Will require dialysis between now and then for fluid management. Dariusz Iniguez DO
[2018-10-24] MEDS ORDERED: BISACODYL 10 MG SUPP.RECT PR PRN (16:05)
[2018-10-24] MEDS: NIFEdipine E.R. 90 MG TABLET (FP) PO SCH (17:00)
[2018-10-24] MEDS: LABETALOL HCL 200 MG TABLET (FP) PO SCH ×2 (17:00→21:52)
[2018-10-24] MEDS: TORSEMIDE 20 MG TABLET (FP) PO SCH (17:01)
[2018-10-24] MEDS ORDERED: METHADONE HCL 40 MG DISPERSABLE TABLET ONE (20:56)
[2018-10-24] MEDS ORDERED: METHADONE HCL 10 MG TABLET ONE (20:57)
[2018-10-24] MEDS: METHADONE 40 MG, METHADONE 20 MG PO SCH (21:51)
[2018-10-24] MEDS: ATORVASTATIN CA 20 MG TABLET (FP) PO SCH (21:52)
[2018-10-24] MEDS: INSULIN (LEVEMIR) 100 UNITS/ML UNITS SQ SCH (22:00)
[2018-10-25] MEDS: INSULIN SLIDING SCALE (NOVOLOG) 1 VIAL SQ SCH ×4 (06:31→21:53)
[2018-10-25] MEDS: CALCIUM ACETATE 667 MG CAPSULE (FP) PO SCH ×3 (08:45→17:33)
[2018-10-25] MEDS: LABETALOL HCL 200 MG TABLET (FP) PO SCH ×2 (09:49→21:49)
[2018-10-25] MEDS: TORSEMIDE 20 MG TABLET (FP) PO SCH (09:49)
[2018-10-25] MEDS: predniSONE 20 MG TABLET (UD) PO SCH (09:50)
[2018-10-25] MEDS: ASPIRIN COATED 81 MG TABLET.EC PO SCH (09:50)
[2018-10-25] MEDS: NIFEdipine E.R. 90 MG TABLET (FP) PO SCH (09:50)
[2018-10-25] MEDS: PANTOPRAZOLE 40 MG TABLET (FP) PO SCH (09:50)
[2018-10-25] MEDS: CLOPIDOGREL BISULFATE 75 MG TABLET (FP) PO SCH (09:50)
[2018-10-25] MEDS: ISOSORBIDE MONONITRATE 60 MG TAB.SR.24H (FP) PO SCH (09:50)
[2018-10-25] MEDS: HEPARIN NA (PORCINE) 5,000 UNITS/ML 1ML VIAL SQ SCH ×2 (09:51→21:50)
--- NOTE | 2018-10-25 11:27 | PN ---
Progress Note, Physician History of Present Illness: Dyspnea improved, denies chest pain, OOB in chair. - Current Medication List Current Medications: Active Medications Aspirin (Ecotrin -) 81 mg PO DAILY [facility] Last Admin: 10/25/18 09:50 Dose: 81 mg Atorvastatin Calcium (Lipitor -) 20 mg PO HS [facility] Last Admin: 10/24/18 21:52 Dose: 20 mg Bisacodyl (Dulcolax Suppository -) 10 mg PA DAILY PRN PRN Reason: CONSTIPATION Last Admin: 10/24/18 17:01 Dose: 10 mg Calcium Acetate (Phoslo -) 667 mg PO TIDCM [facility] Last Admin: 10/25/18 08:45 Dose: 667 mg Clopidogrel Bisulfate (Plavix -) 75 mg PO DAILY [facility] Last Admin: 10/25/18 09:50 Dose: 75 mg Heparin Sodium (Porcine) (Heparin -) 5,000 unit SQ BID [facility] Last Admin: 10/25/18 09:51 Dose: 5,000 unit Insulin Aspart (Novolog Vial Sliding Scale -) 1 vial SQ [facility]; Protocol Last Admin: 10/25/18 06:31 Dose: Not Given Insulin Detemir (Levemir Vial) 15 units SQ [facility] Last Admin: 10/24/18 22:00 Dose: 15 units Isosorbide Mononitrate (Imdur -) 60 mg PO DAILY [facility] Last Admin: 10/25/18 09:50 Dose: 60 mg Labetalol HCl (Normodyne -) 400 mg PO BID [facility] Last Admin: 10/25/18 09:49 Dose: 400 mg Melatonin (Melatonin) 5 mg PO HS PRN PRN Reason: INSOMNIA Last Admin: 10/23/18 22:22 Dose: 5 mg Methadone HCl 40 mg/ Methadone (HCl 20 mg) 60 mg PO [facility] Last Admin: 10/24/18 21:51 Dose: 60 mg Nifedipine (Procardia Xl -) 90 mg PO DAILY [facility] Last Admin: 10/25/18 09:50 Dose: 90 mg Non-Formulary Medication (Cholecalciferol (Vitamin D3) [Dialyvite Vitamin D3 Max ]) 50,000 unit PO WEEKLY [facility] Pantoprazole Sodium (Protonix -) 40 mg PO DAILY [facility] Last Admin: 10/25/18 09:50 Dose: 40 mg Prednisone (Deltasone -) 20 mg PO DAILY [facility] Last Admin: 10/25/18 09:50 Dose: 20 mg Torsemide (Demadex -) 80 mg PO DAILY [facility] Last Admin: 10/25/18 09:49 Dose: 80 mg - Objective Vital Signs: Vital Signs Temperature 98.1 F 10/25/18 09:00 Pulse Rate 65 10/25/18 09:00 Respiratory Rate 20 10/25/18 09:00 Blood Pressure 156/59 L 10/25/18 09:00 O2 Sat by Pulse Oximetry (%) 91 L 10/25/18 09:00 Constitutional: Yes: No Distress, Calm Neck: Yes: Supple Cardiovascular: Yes: Regular Rate and Rhythm Respiratory: Yes: Regular, CTA Bilaterally Gastrointestinal: Yes: Normal Bowel Sounds, Soft Edema: No Labs: CBC, BMP 10/24/18 07:50 10/24/18 07:50 INR, PTT INR 0.97 (0.83-1.09) 10/19/18 16:25 - ....Imaging EKG: Report Reviewed (Tele: NSR) Problem List - Problems (1) Hypertensive cardiomegaly with heart failure Code(s): I11.0 - HYPERTENSIVE HEART DISEASE WITH HEART FAILURE (2) End stage renal disease on dialysis Code(s): N18.6 - END STAGE RENAL DISEASE; Z99.2 - DEPENDENCE ON RENAL DIALYSIS (3) Acute and chronic respiratory failure Code(s): J96.20 - ACUTE AND CHR RESP FAILURE, UNSP W HYPOXIA OR HYPERCAPNIA (4) CHF exacerbation Code(s): I50.9 - HEART FAILURE, UNSPECIFIED Qualifiers: Heart failure type: diastolic Qualified Code(s): I50.33 - Acute on chronic diastolic (congestive) heart failure (5) Diabetes Code(s): E11.9 - TYPE 2 DIABETES MELLITUS WITHOUT COMPLICATIONS Qualifiers: Diabetes mellitus type: type 2 Chronic kidney disease stage: on chronic dialysis (6) Dyspnea Code(s): R06.00 - DYSPNEA, UNSPECIFIED (7) Hyperlipidemia associated with type 2 diabetes mellitus Code(s): E11.69 - TYPE 2 DIABETES MELLITUS WITH OTHER SPECIFIED COMPLICATION; E78.5 - HYPERLIPIDEMIA, UNSPECIFIED Assessment/Plan Echo 09/2018 nl LV function, mild MAC, tr MR, RVSP 32 mmHg 1. Shortness of breath due to recurrent acute on chronic diastolic CHF exacerbation resolving 2. Hypertensive heart disease 3. ESRD on HD 4. PAD s/p femoral stent 5. Type 2 DM 6. Hyperlipidemia 7. Right sided lung CA s/p partial resection 8. Opiate dependence 9. History of drug-induced lupus (elevated anti-histone ABs) PLAN: 1. Continue Torsemide 80 mg QD and HD via PC 2. Continue ASA 81 mg QD, Lipitor 20 mg QHS, Plavix 75 mg QD, Imdur 60 mg QD, Labetolol 400 mg BID and Procardia XL 90 mg QD 3. Hydralazine stopped due to concern for drug induced lupus (elevated anti- histone ABs) 4. Prednisone taper with GI protection, DVT prophylaxis 5. D/c planning and awaiting first available outpatient dialysis spot next Monday
--- NOTE | 2018-10-25 12:41 | PN ---
Progress Note (short form) - Note Progress Note: O2 sat 98% on 2liters no SOB no chest pain Vital Signs - 24 hr 10/24/18 10/24/18 10/24/18 15:01 17:00 21:00 Temperature 98.6 F 98.1 F 98.6 F Pulse Rate 73 72 102 H Respiratory 18 20 20 Rate Blood Pressure 133/64 185/77 H 166/73 O2 Sat by Pulse 94 L Oximetry (%) 10/25/18 10/25/18 10/25/18 01:00 05:00 09:00 Temperature 98.1 F 98.4 F 98.1 F Pulse Rate 62 61 65 Respiratory 20 20 20 Rate Blood Pressure 184/76 H 156/62 156/59 L O2 Sat by Pulse 91 L Oximetry (%) Current Medications Generic Name Dose Route Start Last Admin Trade Name Freq PRN Reason Stop Dose Admin Aspirin 81 mg 10/20/18 10:00 10/25/18 09:50 Ecotrin - PO 81 mg DAILY [facility] Administration Atorvastatin Calcium 20 mg 10/19/18 22:00 10/24/18 21:52 Lipitor - PO 20 mg HS [facility] Administration Bisacodyl 10 mg 10/24/18 16:05 10/24/18 17:01 Dulcolax Suppository - [place] 10 mg DAILY PRN Administration CONSTIPATION Calcium Acetate 667 mg 10/21/18 08:00 10/25/18 11:47 Phoslo - PO 667 mg TIDCM [facility] Administration Clopidogrel Bisulfate 75 mg 10/20/18 10:00 10/25/18 09:50 Plavix - PO 75 mg DAILY [facility] Administration Ergocalciferol 50,000 unit 10/31/18 10:00 Drisdol - PO We@1000 COUNTS INCLUDE 234 BEDS AT THE [facility] Heparin Sodium (Porcine) 5,000 unit 10/19/18 22:00 10/25/18 09:51 Heparin - SQ 5,000 unit BID [facility] Administration Insulin Aspart 1 vial 10/19/18 22:00 10/25/18 11:47 Novolog Vial Sliding Scale - SQ 4 unit ACHS COUNTS INCLUDE 234 BEDS AT [facility] Administration Protocol Insulin Detemir 15 units 10/20/18 22:00 10/24/18 22:00 Levemir Vial SQ 15 units HS [facility] Administration Isosorbide Mononitrate 60 mg 10/21/18 10:00 10/25/18 09:50 Imdur - PO 60 mg DAILY [facility] Administration Labetalol HCl 400 mg 10/22/18 11:23 10/25/18 09:49 Normodyne - PO 400 mg BID [facility] Administration Melatonin 5 mg 10/20/18 18:25 10/23/18 22:22 Melatonin PO 5 mg HS PRN Administration INSOMNIA Methadone HCl 40 mg/ Methadone 60 mg 10/23/18 22:00 10/24/18 21:51 HCl 20 mg PO 60 mg HS [facility] Administration Nifedipine 90 mg 10/22/18 16:45 10/25/18 09:50 Procardia Xl - PO 90 mg DAILY [facility] Administration Pantoprazole Sodium 40 mg 10/23/18 14:15 10/25/18 09:50 Protonix - PO 40 mg DAILY [facility] Administration Prednisone 20 mg 10/20/18 18:30 10/25/18 09:50 Deltasone - PO 20 mg DAILY [facility] Administration Torsemide 80 mg 10/21/18 10:00 10/25/18 09:49 Demadex - PO 80 mg DAILY [facility] Administration Laboratory Results - last 24 hr 10/24/18 10/24/18 10/25/18 17:03 21:58 05:18 POC Glucometer 360 366 110 10/25/18 11:45 POC Glucometer 205 S1 S2 RRR Lungs decreased Abd- soft, NT no edema PLAN on methadone OOB O2 2-3 liters physical therapy Prednisone taper meds reconciled continue with meds HD per renal outpt dialysis set up for next Monday as per wrapper caser-- I spoke with Renal - will dialyse him prior to pt being dc home - likely Monday plan for dc home Problem List - Problems (1) COPD (chronic obstructive pulmonary disease) Code(s): J44.9 - CHRONIC OBSTRUCTIVE PULMONARY DISEASE, UNSPECIFIED (2) BRET (acute kidney injury) Code(s): N17.9 - ACUTE KIDNEY FAILURE, UNSPECIFIED (3) Acute and chronic respiratory failure Code(s): J96.20 - ACUTE AND CHR RESP FAILURE, UNSP W HYPOXIA OR HYPERCAPNIA (4) Coole-yi-srzjynn kidney injury Code(s): N17.9 - ACUTE KIDNEY FAILURE, UNSPECIFIED; N18.9 - CHRONIC KIDNEY DISEASE, UNSPECIFIED (5) CHF exacerbation Code(s): I50.9 - HEART FAILURE, UNSPECIFIED Qualifiers: Heart failure type: diastolic Qualified Code(s): I50.33 - Acute on chronic diastolic (congestive) heart failure
[2018-10-25] MEDS ORDERED: METHADONE HCL 10 MG TABLET ONE (21:38)
[2018-10-25] MEDS ORDERED: METHADONE HCL 40 MG DISPERSABLE TABLET ONE (21:38)
[2018-10-25] MEDS: METHADONE 40 MG, METHADONE 20 MG PO SCH (21:48)
[2018-10-25] MEDS: ATORVASTATIN CA 20 MG TABLET (FP) PO SCH (21:50)
[2018-10-25] MEDS: INSULIN (LEVEMIR) 100 UNITS/ML UNITS SQ SCH (21:53)
[2018-10-26] MEDS: INSULIN SLIDING SCALE (NOVOLOG) 1 VIAL SQ SCH ×4 (06:10→21:16)
[2018-10-26] MEDS: CALCIUM ACETATE 667 MG CAPSULE (FP) PO SCH ×3 (08:12→17:38)
[2018-10-26 08:35] LABS: HEMATOCRIT 27.6 % (35.4-49); HEMOGLOBIN 8.9 GM/dL (11.7-16.9); MCH 28.5 pg (25.7-33.7); MCHC 32.1 g/dl (32.0-35.9); MEAN CELL VOLUME 88.8 fl (80-96); MEAN PLT VOLUME 7.8 fl (7.5-11.1); RBC 3.11 M/mm3 (4.00-5.60); RDW 17.8 % (11.9-15.9); WHITE BLOOD COUNT 7.2 K/mm3 (4.0-10.0)
[2018-10-26 08:43] LABS: PLATELET COUNT 360 K/MM3 (134-434)
[2018-10-26 09:05] LABS: BLOOD UREA NITROGEN 59.3 mg/dL (7-18); CALCIUM 8.5 mg/dL (8.5-10.1); CREATININE 2.7 mg/dL (0.55-1.3); PHOSPHOROUS 2.6 mg/dL (2.5-4.9); POTASSIUM 4.5 mmol/L (3.5-5.1)
[2018-10-26] MEDS ORDERED: HEPARIN NA (PORCINE) 5,000 UNITS/ML 1ML VIAL IVPUSH ONE (11:00)
[2018-10-26] MEDS ORDERED: SODIUM CHLORIDE 250 ML IV PRN (11:00)
[2018-10-26] MEDS ORDERED: EPOETIN ALFA 20,000 UNIT/1 ML VIAL IVPUSH ONE (11:00)
--- NOTE | 2018-10-26 11:02 | PN ---
Progress Note, Physician History of Present Illness: Dyspnea improved, denies chest pain, undergoing HD. - Current Medication List Current Medications: Active Medications Aspirin (Ecotrin -) 81 mg PO DAILY [facility] Last Admin: 10/25/18 09:50 Dose: 81 mg Atorvastatin Calcium (Lipitor -) 20 mg PO HS [facility] Last Admin: 10/25/18 21:50 Dose: 20 mg Bisacodyl (Dulcolax Suppository -) 10 mg [place] DAILY PRN PRN Reason: CONSTIPATION Last Admin: 10/24/18 17:01 Dose: 10 mg Calcium Acetate (Phoslo -) 667 mg PO TIDCM [facility] Last Admin: 10/26/18 08:12 Dose: Not Given Clopidogrel Bisulfate (Plavix -) 75 mg PO DAILY [facility] Last Admin: 10/25/18 09:50 Dose: 75 mg Ergocalciferol (Drisdol -) 50,000 unit PO We@1000 [facility] Heparin Sodium (Porcine) (Heparin -) 5,000 unit SQ BID [facility] Last Admin: 10/25/18 21:50 Dose: 5,000 unit Heparin Sodium (Porcine) (Heparin -) 500 unit IVPUSH Q1H [facility] Stop: 10/26/18 13:01 Insulin Aspart (Novolog Vial Sliding Scale -) 1 vial SQ [facility]; Protocol Last Admin: 10/26/18 06:10 Dose: Not Given Insulin Detemir (Levemir Vial) 15 units SQ HS [facility] Last Admin: 10/25/18 21:53 Dose: 15 units Isosorbide Mononitrate (Imdur -) 60 mg PO DAILY [facility] Last Admin: 10/25/18 09:50 Dose: 60 mg Labetalol HCl (Normodyne -) 400 mg PO BID [facility] Last Admin: 10/25/18 21:49 Dose: 400 mg Melatonin (Melatonin) 5 mg PO HS PRN PRN Reason: INSOMNIA Last Admin: 10/23/18 22:22 Dose: 5 mg Methadone HCl 40 mg/ Methadone (HCl 20 mg) 60 mg PO HS [facility] Last Admin: 10/25/18 21:48 Dose: 60 mg Nifedipine (Procardia Xl -) 90 mg PO DAILY [facility] Last Admin: 10/25/18 09:50 Dose: 90 mg Pantoprazole Sodium (Protonix -) 40 mg PO DAILY [facility] Last Admin: 10/25/18 09:50 Dose: 40 mg Prednisone (Deltasone -) 20 mg PO DAILY [facility] Last Admin: 10/25/18 09:50 Dose: 20 mg Torsemide (Demadex -) 80 mg PO DAILY [facility] Last Admin: 10/25/18 09:49 Dose: 80 mg - Objective Vital Signs: Vital Signs Temperature 98.1 F 10/26/18 05:00 Pulse Rate 61 10/26/18 05:00 Respiratory Rate 20 10/26/18 05:00 Blood Pressure 149/61 10/26/18 05:00 O2 Sat by Pulse Oximetry (%) 96 10/25/18 21:00 Constitutional: Yes: No Distress, Calm Neck: Yes: Supple Cardiovascular: Yes: Regular Rate and Rhythm Respiratory: Yes: Regular, Diminished Gastrointestinal: Yes: Normal Bowel Sounds, Soft Edema: No Labs: CBC, BMP 10/26/18 07:15 10/26/18 07:15 INR, PTT INR 0.97 (0.83-1.09) 10/19/18 16:25 - ....Imaging EKG: Report Reviewed (Tele: NSR) Problem List - Problems (1) Hypertensive cardiomegaly with heart failure Code(s): I11.0 - HYPERTENSIVE HEART DISEASE WITH HEART FAILURE (2) End stage renal disease on dialysis Code(s): N18.6 - END STAGE RENAL DISEASE; Z99.2 - DEPENDENCE ON RENAL DIALYSIS (3) Acute and chronic respiratory failure Code(s): J96.20 - ACUTE AND CHR RESP FAILURE, UNSP W HYPOXIA OR HYPERCAPNIA (4) CHF exacerbation Code(s): I50.9 - HEART FAILURE, UNSPECIFIED Qualifiers: Heart failure type: diastolic Qualified Code(s): I50.33 - Acute on chronic diastolic (congestive) heart failure (5) Diabetes Code(s): E11.9 - TYPE 2 DIABETES MELLITUS WITHOUT COMPLICATIONS Qualifiers: Diabetes mellitus type: type 2 Chronic kidney disease stage: on chronic dialysis (6) Dyspnea Code(s): R06.00 - DYSPNEA, UNSPECIFIED (7) Hyperlipidemia associated with type 2 diabetes mellitus Code(s): E11.69 - TYPE 2 DIABETES MELLITUS WITH OTHER SPECIFIED COMPLICATION; E78.5 - HYPERLIPIDEMIA, UNSPECIFIED Assessment/Plan Echo 09/2018 nl LV function, mild MAC, tr MR, RVSP 32 mmHg 1. Shortness of breath due to recurrent acute on chronic diastolic CHF exacerbation resolving 2. Hypertensive heart disease 3. ESRD on HD 4. PAD s/p femoral stent 5. Type 2 DM 6. Hyperlipidemia 7. Right sided lung CA s/p partial resection 8. Opiate dependence 9. History of drug-induced lupus (elevated anti-histone ABs) PLAN: 1. Continue Torsemide 80 mg QD and HD via PC 2. Continue ASA 81 mg QD, Lipitor 20 mg QHS, Plavix 75 mg QD, Imdur 60 mg QD, Labetolol 400 mg BID and Procardia XL 90 mg QD 3. Hydralazine stopped due to concern for drug induced lupus (elevated anti- histone ABs) 4. Prednisone taper with GI protection, DVT prophylaxis 5. D/c planning after sat HD, and awaiting first available outpatient dialysis spot next Monday
[2018-10-26] MEDS: HEPARIN NA (PORCINE) 5,000 UNITS/ML 1ML VIAL IVPUSH SCH ×2 (11:07→11:08)
--- NOTE | 2018-10-26 11:27 | PN ---
Progress Note (short form) - Note Progress Note: pt seen/ examined . Feels better Being dialized better - still gets sob Vital Signs Temp 98.4 F 10/26/18 07:10 Pulse 60 10/26/18 10:45 Resp 18 10/26/18 10:45 BP 150/73 10/26/18 10:45 Pulse Ox 96 10/25/18 21:00 Intake & Output 10/25/18 10/25/18 10/26/18 11:59 23:59 11:59 Intake Total 400 1600 Output Total 200 Balance 200 1600 Weight 157 lb 3.2 oz 161 lb Intake: Oral 400 1600 Output: Urine 200 Void 200 Other: Voiding Method Toilet Toilet Urinal # Unmeasured Voids Void 1 Bowel Movement Yes Weight Measurement Method Standing Scale Standing Scale Active Medications Aspirin (Ecotrin -) 81 mg PO DAILY [facility] Last Admin: 10/25/18 09:50 Dose: 81 mg Atorvastatin Calcium (Lipitor -) 20 mg PO [facility] Last Admin: 10/25/18 21:50 Dose: 20 mg Bisacodyl (Dulcolax Suppository -) 10 mg IN DAILY PRN PRN Reason: CONSTIPATION Last Admin: 10/24/18 17:01 Dose: 10 mg Calcium Acetate (Phoslo -) 667 mg PO TIDCM [facility] Last Admin: 10/26/18 08:12 Dose: Not Given Clopidogrel Bisulfate (Plavix -) 75 mg PO DAILY [facility] Last Admin: 10/25/18 09:50 Dose: 75 mg Ergocalciferol (Drisdol -) 50,000 unit PO We@1000 [facility] Heparin Sodium (Porcine) (Heparin -) 5,000 unit SQ BID [facility] Last Admin: 10/25/18 21:50 Dose: 5,000 unit Heparin Sodium (Porcine) (Heparin -) 500 unit IVPUSH Q1H [facility] Stop: 10/26/18 13:01 Last Admin: 10/26/18 11:08 Dose: 500 unit Insulin Aspart (Novolog Vial Sliding Scale -) 1 vial SQ [facility]; Protocol Last Admin: 10/26/18 06:10 Dose: Not Given Insulin Detemir (Levemir Vial) 15 units SQ [facility] Last Admin: 10/25/18 21:53 Dose: 15 units Isosorbide Mononitrate (Imdur -) 60 mg PO DAILY [facility] Last Admin: 10/25/18 09:50 Dose: 60 mg Labetalol HCl (Normodyne -) 400 mg PO BID [facility] Last Admin: 10/25/18 21:49 Dose: 400 mg Melatonin (Melatonin) 5 mg PO HS PRN PRN Reason: INSOMNIA Last Admin: 10/23/18 22:22 Dose: 5 mg Methadone HCl 40 mg/ Methadone (HCl 20 mg) 60 mg PO HS [facility] Last Admin: 10/25/18 21:48 Dose: 60 mg Nifedipine (Procardia Xl -) 90 mg PO DAILY [facility] Last Admin: 10/25/18 09:50 Dose: 90 mg Pantoprazole Sodium (Protonix -) 40 mg PO DAILY [facility] Last Admin: 10/25/18 09:50 Dose: 40 mg Prednisone (Deltasone -) 20 mg PO DAILY [facility] Last Admin: 10/25/18 09:50 Dose: 20 mg Torsemide (Demadex -) 80 mg PO DAILY [facility] Last Admin: 10/25/18 09:49 Dose: 80 mg CBC, BMP 10/26/18 07:15 10/26/18 07:15 Physical Exam S1 S2 RRR Lungs decreased Abd- soft, NT no edema PLAN on methadone OOB O2 2-3 liters physical therapy -- did not walk yet as per Nursing staff Prednisone taper meds reconciled continue with meds HD per renal outpt dialysis set up for next Monday as per watch case polisher-- I will discuss with Renal - will dialyse him prior to pt being dc home - likely Monday plan for dc home Will follow f/u cxr Problem List - Problems (1) COPD (chronic obstructive pulmonary disease) Code(s): J44.9 - CHRONIC OBSTRUCTIVE PULMONARY DISEASE, UNSPECIFIED (2) BRET (acute kidney injury) Code(s): N17.9 - ACUTE KIDNEY FAILURE, UNSPECIFIED (3) Acute and chronic respiratory failure Code(s): J96.20 - ACUTE AND CHR RESP FAILURE, UNSP W HYPOXIA OR HYPERCAPNIA (4) Nheem-dt-xnblgxs kidney injury Code(s): N17.9 - ACUTE KIDNEY FAILURE, UNSPECIFIED; N18.9 - CHRONIC KIDNEY DISEASE, UNSPECIFIED (5) CHF exacerbation Code(s): I50.9 - HEART FAILURE, UNSPECIFIED Qualifiers: Heart failure type: diastolic Qualified Code(s): I50.33 - Acute on chronic diastolic (congestive) heart failure
[2018-10-26 12:15] VITALS: BMI 26.8
[2018-10-26] MEDS: TORSEMIDE 20 MG TABLET (FP) PO SCH (12:26)
[2018-10-26] MEDS: ASPIRIN COATED 81 MG TABLET.EC PO SCH (12:27)
[2018-10-26] MEDS: CLOPIDOGREL BISULFATE 75 MG TABLET (FP) PO SCH (12:27)
[2018-10-26] MEDS: PANTOPRAZOLE 40 MG TABLET (FP) PO SCH (12:27)
[2018-10-26] MEDS: HEPARIN NA (PORCINE) 5,000 UNITS/ML 1ML VIAL SQ SCH (12:27)
[2018-10-26] MEDS: predniSONE 20 MG TABLET (UD) PO SCH (12:27)
[2018-10-26] MEDS: LABETALOL HCL 200 MG TABLET (FP) PO SCH ×2 (12:28→21:18)
[2018-10-26] MEDS: ISOSORBIDE MONONITRATE 60 MG TAB.SR.24H (FP) PO SCH (12:28)
[2018-10-26] MEDS: NIFEdipine E.R. 90 MG TABLET (FP) PO SCH (12:28)
--- NOTE | 2018-10-26 13:43 | PN ---
Progress Note (short form) - Note Progress Note: Renal follow up for BRET requiring dialysis Pt seen and examined at the bedside awake and alert s/p dialysis this am, tolerated it well. 3L UF removed has mild sob still. Has some leg swelling Vital Signs Temperature 98.4 F 10/26/18 07:10 Pulse Rate 62 10/26/18 11:45 Respiratory Rate 18 10/26/18 11:45 Blood Pressure 140/72 10/26/18 11:45 O2 Sat by Pulse Oximetry (%) 96 10/25/18 21:00 Intake & Output 10/23/18 10/24/18 10/25/18 10/26/18 23:59 23:59 23:59 23:59 Intake Total 5093 818 8606 Output Total 200 Balance 1331 146 4416 Weight 71.214 kg 71.305 kg 71.305 kg 73.028 kg NAD awake and alert RRR CTA + edema in ankles CBC, BMP 10/26/18 07:15 10/26/18 07:15 Current Medications Aspirin (Ecotrin -) 81 mg PO DAILY [facility] Last Admin: 10/26/18 12:27 Dose: 81 mg Atorvastatin Calcium (Lipitor -) 20 mg PO HS [facility] Last Admin: 10/25/18 21:50 Dose: 20 mg Bisacodyl (Dulcolax Suppository -) 10 mg AR DAILY PRN PRN Reason: CONSTIPATION Last Admin: 10/24/18 17:01 Dose: 10 mg Calcium Acetate (Phoslo -) 667 mg PO TIDCM [facility] Last Admin: 10/26/18 12:26 Dose: 667 mg Clopidogrel Bisulfate (Plavix -) 75 mg PO DAILY [facility] Last Admin: 10/26/18 12:27 Dose: 75 mg Ergocalciferol (Drisdol -) 50,000 unit PO We@1000 [facility] Heparin Sodium (Porcine) (Heparin -) 5,000 unit SQ BID [facility] Last Admin: 10/26/18 12:27 Dose: 5,000 unit Insulin Aspart (Novolog Vial Sliding Scale -) 1 vial SQ [facility]; Protocol Last Admin: 10/26/18 12:24 Dose: 2 unit Insulin Detemir (Levemir Vial) 15 units SQ [facility] Last Admin: 10/25/18 21:53 Dose: 15 units Isosorbide Mononitrate (Imdur -) 60 mg PO DAILY [facility] Last Admin: 10/26/18 12:28 Dose: 60 mg Labetalol HCl (Normodyne -) 400 mg PO BID [facility] Last Admin: 10/26/18 12:28 Dose: 400 mg Melatonin (Melatonin) 5 mg PO HS PRN PRN Reason: INSOMNIA Last Admin: 10/23/18 22:22 Dose: 5 mg Methadone HCl 40 mg/ Methadone (HCl 20 mg) 60 mg PO HS [facility] Last Admin: 10/25/18 21:48 Dose: 60 mg Nifedipine (Procardia Xl -) 90 mg PO DAILY [facility] Last Admin: 10/26/18 12:28 Dose: 90 mg Pantoprazole Sodium (Protonix -) 40 mg PO DAILY [facility] Last Admin: 10/26/18 12:27 Dose: 40 mg Prednisone (Deltasone -) 20 mg PO DAILY [facility] Last Admin: 10/26/18 12:27 Dose: 20 mg Torsemide (Demadex -) 80 mg PO DAILY [facility] Last Admin: 10/26/18 12:26 Dose: 80 mg 68 year old gentleman with history of BRET now requiring dialysis, IDDM , CHF, CKD, Hx of lung Ca s/p lobectomy readmitted from Rehab. #BRET requiring dialysis #CHF/Volume overload #DM #hx of substance abuse requiring methadone Tolerated dialysis well this AM. will arrange for additional UF tomorrow as pt still has signs of volume expnasion. Outpatient dialysis arranged at [facility] for Monday. Continue Torsemide 80mg Daily. Continue present antihypertensive medications. will continue ALBA with dialysis for Anemia. Dariusz Iniguez DO
[2018-10-26] MEDS ORDERED: METHADONE HCL 10 MG TABLET ONE (20:28)
[2018-10-26] MEDS ORDERED: METHADONE HCL 40 MG DISPERSABLE TABLET ONE (20:28)
[2018-10-26] MEDS: METHADONE 40 MG, METHADONE 20 MG PO SCH (21:17)
[2018-10-26] MEDS: INSULIN (LEVEMIR) 100 UNITS/ML UNITS SQ SCH (21:18)
[2018-10-26] MEDS: ATORVASTATIN CA 20 MG TABLET (FP) PO SCH (21:18)
[2018-10-27] MEDS: INSULIN SLIDING SCALE (NOVOLOG) 1 VIAL SQ SCH ×3 (06:09→17:19)
[2018-10-27] MEDS ORDERED: SODIUM CHLORIDE 250 ML IV PRN (06:58)
[2018-10-27] MEDS ORDERED: HEPARIN NA (PORCINE) 5,000 UNITS/ML 1ML VIAL IVPUSH ONE (06:58)
[2018-10-27] MEDS: HEPARIN NA (PORCINE) 5,000 UNITS/ML 1ML VIAL IVPUSH SCH ×3 (08:39→10:15)
[2018-10-27 08:57] LABS: CALCIUM 8.3 mg/dL (8.5-10.1); CREATININE 2.4 mg/dL (0.55-1.3); POTASSIUM 4.4 mmol/L (3.5-5.1)
[2018-10-27] MEDS: CALCIUM ACETATE 667 MG CAPSULE (FP) PO SCH ×3 (11:05→17:20)
--- NOTE | 2018-10-27 11:07 | DS ---
Physical Examination Vital Signs: Vital Signs Temperature 97.9 F 10/27/18 09:00 Pulse Rate 59 L 10/27/18 10:20 Respiratory Rate 18 10/27/18 10:20 Blood Pressure 148/74 10/27/18 10:20 O2 Sat by Pulse Oximetry (%) 100 10/27/18 09:00 Labs: CBC, BMP 10/26/18 07:15 10/27/18 08:00 Discharge Summary Reason For Visit: ACUTE ON CHRONIC CHF Current Active Problems COPD (chronic obstructive pulmonary disease) (Acute) End stage renal disease on dialysis (Acute) Hyperlipidemia associated with type 2 diabetes mellitus (Acute) Hypertensive cardiomegaly with heart failure (Acute) Condition: Stable - Instructions - Home Medications Comprehensive Discharge Medication List: Ambulatory Orders Glipizide [Glipizide ER] 10 mg PO DAILY 09/17/18 Atorvastatin Ca [Lipitor] 20 mg PO HS #30 tablet 10/18/18 Clopidogrel Bisulfate [Plavix -] 75 mg PO DAILY #30 tablet 10/18/18 Methadone [Dolophine -] 60 mg PO DAILY@0600 tablet MDD 1 10/18/18 Methadone [Dolophine -] 60 mg PO DAILY@0600 tablet MDD 1 10/18/18 Acetaminophen [Acetaminophen ER] 650 mg PO Q6H PRN 10/19/18 Amlodipine Besylate [Norvasc -] 10 mg PO DAILY 10/19/18 Aspirin [Aspirin EC] 81 mg PO DAILY 10/19/18 Cholecalciferol (Vitamin D3) [Dialyvite Vitamin D3 Max] 50,000 unit PO WEEKLY Doxazosin Mesylate [Cardura -] 4 mg PO DAILY 10/19/18 Furosemide [Lasix -] 40 mg PO DAILY 10/19/18 Hydralazine HCl 50 mg PO BID 10/19/18 Labetalol HCl [Normodyne -] 300 mg PO BID 10/19/18 Nateglinide [Starlix (Nf)] 120 mg PO TID 10/19/18 Nystatin/Triamcinolone Top Cr [Mycolog II Cream -] 1 applic TP BID 10/19/18 Potassium Chloride 10 meq PO BID 10/19/18 Triamterene/Hydrochlorothiazid [Triamterene-Hctz 37.5-25 mg Tb] 1 each PO DAILY 10/19/18
[2018-10-27] MEDS: predniSONE 20 MG TABLET (UD) PO SCH (11:26)
[2018-10-27] MEDS: TORSEMIDE 20 MG TABLET (FP) PO SCH (11:27)
[2018-10-27] MEDS: LABETALOL HCL 200 MG TABLET (FP) PO SCH (11:28)
[2018-10-27] MEDS: ISOSORBIDE MONONITRATE 60 MG TAB.SR.24H (FP) PO SCH (11:28)
[2018-10-27] MEDS: ASPIRIN COATED 81 MG TABLET.EC PO SCH (11:28)
[2018-10-27] MEDS: CLOPIDOGREL BISULFATE 75 MG TABLET (FP) PO SCH (11:29)
[2018-10-27] MEDS: PANTOPRAZOLE 40 MG TABLET (FP) PO SCH (11:29)
[2018-10-27] MEDS: NIFEdipine E.R. 90 MG TABLET (FP) PO SCH (11:29)
--- NOTE | 2018-10-27 11:42 | PN ---
Progress Note (short form) - Note Progress Note: Renal follow up for BRET requiring dialysis Pt seen and examined at the bedside s/p isolated UF this morning, tolerated it well. 2.5L removed no sob, chest pain, abd pain for d/c home today Vital Signs Temperature 97.9 F 10/27/18 09:00 Pulse Rate 59 L 10/27/18 10:20 Respiratory Rate 18 10/27/18 10:20 Blood Pressure 148/74 10/27/18 10:20 O2 Sat by Pulse Oximetry (%) 100 10/27/18 09:00 Intake & Output 10/24/18 10/25/18 10/26/18 10/27/18 23:59 23:59 23:59 23:59 Intake Total 980 2000 680 240 Output Total 200 Balance 980 1800 680 240 Weight 71.305 kg 71.305 kg 73.028 kg 72.212 kg NAD awake and alert RRR CTA Trace edema CBC, BMP 10/26/18 07:15 10/27/18 08:00 Current Medications Aspirin (Ecotrin -) 81 mg PO DAILY [facility] Last Admin: 10/27/18 11:28 Dose: 81 mg Atorvastatin Calcium (Lipitor -) 20 mg PO HS [facility] Last Admin: 10/26/18 21:18 Dose: 20 mg Bisacodyl (Dulcolax Suppository -) 10 mg [facility] DAILY PRN PRN Reason: CONSTIPATION Last Admin: 10/24/18 17:01 Dose: 10 mg Calcium Acetate (Phoslo -) 667 mg PO TIDCM [facility] Last Admin: 10/27/18 11:05 Dose: Not Given Clopidogrel Bisulfate (Plavix -) 75 mg PO DAILY [facility] Last Admin: 10/27/18 11:29 Dose: 75 mg Ergocalciferol (Drisdol -) 50,000 unit PO We@1000 [facility] Sodium Chloride (Normal Saline -) 250 mls @ 3,000 mls/hr IV PRN PRN PRN Reason: Hypotension during Dialysis Stop: 10/28/18 06:58 Insulin Aspart (Novolog Vial Sliding Scale -) 1 vial SQ [facility]; Protocol Last Admin: 10/27/18 06:09 Dose: Not Given Insulin Detemir (Levemir Vial) 15 units SQ [facility] Last Admin: 10/26/18 21:18 Dose: 15 units Isosorbide Mononitrate (Imdur -) 60 mg PO DAILY [facility] Last Admin: 10/27/18 11:28 Dose: 60 mg Labetalol HCl (Normodyne -) 400 mg PO BID [facility] Last Admin: 10/27/18 11:28 Dose: 400 mg Melatonin (Melatonin) 5 mg PO HS PRN PRN Reason: INSOMNIA Last Admin: 10/23/18 22:22 Dose: 5 mg Methadone HCl (Dolophine -) 60 mg PO ONCE ONE Stop: 10/27/18 20:01 Nifedipine (Procardia Xl -) 90 mg PO DAILY [facility] Last Admin: 10/27/18 11:29 Dose: 90 mg Pantoprazole Sodium (Protonix -) 40 mg PO DAILY [facility] Last Admin: 10/27/18 11:29 Dose: 40 mg Prednisone (Deltasone -) 20 mg PO DAILY [facility] Last Admin: 10/27/18 11:26 Dose: 20 mg Torsemide (Demadex -) 80 mg PO DAILY [facility] Last Admin: 10/27/18 11:27 Dose: 80 mg 68 year old gentleman with history of BRET now requiring dialysis, IDDM , CHF, CKD, Hx of lung Ca s/p lobectomy readmitted from Rehab. #BRET requiring dialysis #CHF/Volume overload #DM #hx of substance abuse requiring methadone Tolerated UF this AM. pt is euvolemic at this time can resume HD next Monday as an outpatient. Continue Torsemide 80mg Daily on discharge. No LUKE/ARB for now as we are monitoring for renal recovery stable to go home from renal perspective. Dariusz Iniguez DO
--- NOTE | 2018-10-27 13:05 | PN ---
Progress Note, Physician Chief Complaint: Pt A&OX3; sitting up at bedside; no chest pain, dyspnea. History of Present Illness: The patient is a 68 year old male (b. [place]) with a significant PMH of HTN , IDDM, COPD, diastolic CHF, ESRD-->dialysis (MWF), lung CA (s/p RLL lobectomy) , and hyperlipidemia who presents to the emergency department from [facility] for evaluation of shortness of breath this morning. Pt reports shortness of breath this morning which is aggravated by exertion. Per [facility], pt was found to have low O2 sat despite being on 3 L O2. The patient denies chest pain , headache and dizziness. Denies fever, chills, nausea, vomit, diarrhea and constipation. Allergies: NKA Past surgical history: RLL lobectomy. Social history: Former smoker. No reported alcohol or drug use. PCP: Dr. Ximena Martinez Nephro: Dr. Dariusz Iniguez - Current Medication List Current Medications: Active Medications Aspirin (Ecotrin -) 81 mg PO DAILY [facility] Last Admin: 10/27/18 11:28 Dose: 81 mg Atorvastatin Calcium (Lipitor -) 20 mg PO HS [facility] Last Admin: 10/26/18 21:18 Dose: 20 mg Bisacodyl (Dulcolax Suppository -) 10 mg ID DAILY PRN PRN Reason: CONSTIPATION Last Admin: 10/24/18 17:01 Dose: 10 mg Calcium Acetate (Phoslo -) 667 mg PO TIDCM [facility] Last Admin: 10/27/18 12:02 Dose: 667 mg Clopidogrel Bisulfate (Plavix -) 75 mg PO DAILY [facility] Last Admin: 10/27/18 11:29 Dose: 75 mg Ergocalciferol (Drisdol -) 50,000 unit PO We@1000 [facility] Sodium Chloride (Normal Saline -) 250 mls @ 3,000 mls/hr IV PRN PRN PRN Reason: Hypotension during Dialysis Stop: 10/28/18 06:58 Insulin Aspart (Novolog Vial Sliding Scale -) 1 vial SQ [facility]; Protocol Last Admin: 10/27/18 11:51 Dose: 4 unit Insulin Detemir (Levemir Vial) 15 units SQ [facility] Last Admin: 10/26/18 21:18 Dose: 15 units Isosorbide Mononitrate (Imdur -) 60 mg PO DAILY [facility] Last Admin: 10/27/18 11:28 Dose: 60 mg Labetalol HCl (Normodyne -) 400 mg PO BID [facility] Last Admin: 10/27/18 11:28 Dose: 400 mg Melatonin (Melatonin) 5 mg PO HS PRN PRN Reason: INSOMNIA Last Admin: 10/23/18 22:22 Dose: 5 mg Methadone HCl 40 mg/ Methadone (HCl 20 mg) 60 mg PO ONCE ONE Stop: 10/27/18 20:01 Nifedipine (Procardia Xl -) 90 mg PO DAILY [facility] Last Admin: 10/27/18 11:29 Dose: 90 mg Pantoprazole Sodium (Protonix -) 40 mg PO DAILY [facility] Last Admin: 10/27/18 11:29 Dose: 40 mg Prednisone (Deltasone -) 20 mg PO DAILY [facility] Last Admin: 10/27/18 11:26 Dose: 20 mg Torsemide (Demadex -) 80 mg PO DAILY [facility] Last Admin: 10/27/18 11:27 Dose: 80 mg - Objective Vital Signs: Vital Signs Temperature 97.9 F 10/27/18 09:00 Pulse Rate 59 L 10/27/18 10:20 Respiratory Rate 18 10/27/18 10:20 Blood Pressure 148/74 10/27/18 10:20 O2 Sat by Pulse Oximetry (%) 100 10/27/18 09:00 Eyes: Yes: WNL HENT: Yes: WNL Neck: Yes: WNL Cardiovascular: Yes: WNL Respiratory: Yes: Diminished, Other (absent breath sounds right base) Gastrointestinal: Yes: Soft ...Rectal Exam: Yes: Deferred Genitourinary: No: Anuria Musculoskeletal: Yes: Muscle Weakness Extremities: Yes: WNL Edema: No Peripheral Pulses WNL: Yes Integumentary: Yes: WNL Neurological: Yes: WNL Psychiatric: Yes: WNL Labs: CBC, BMP 10/26/18 07:15 10/27/18 08:00 INR, PTT INR 0.97 (0.83-1.09) 10/19/18 16:25 Abnormal Lab Results 10/27/18 08:00 Anion Gap 6 L BUN 44.0 H Creatinine 2.4 H Random Glucose 112 H Calcium 8.3 L - ....Imaging Other: Image Reviewed (telemetry: NSR) Problem List - Problems (1) Diastolic CHF Assessment/Plan: Echo 09/2018 nl LV function, mild MAC, tr MR, RVSP 32 mmHg 1. Shortness of breath due to recurrent acute on chronic diastolic CHF exacerbation resolving 2. Hypertensive heart disease 3. ESRD on HD 4. PAD s/p femoral stent 5. Type 2 DM 6. Hyperlipidemia 7. Right sided lung CA s/p partial resection 8. Opiate dependence 9. History of drug-induced lupus (elevated anti-histone ABs) PLAN: 1. Continue Torsemide 80 mg QD and HD via PC 2. Continue ASA 81 mg QD, Lipitor 20 mg QHS, Plavix 75 mg QD, Imdur 60 mg QD, Labetolol 400 mg BID and Procardia XL 90 mg QD 3. Hydralazine stopped due to concern for drug induced lupus (elevated anti- histone ABs) 4. Prednisone taper with GI protection, DVT prophylaxis 5. D/c planning after sat HD, and awaiting first available outpatient dialysis spot next Monday Code(s): I50.30 - UNSPECIFIED DIASTOLIC (CONGESTIVE) HEART FAILURE (2) Status post lung surgery Assessment/Plan: hx right lung surgery, reportedly benign (but hx lung CA). Code(s): Z98.890 - OTHER SPECIFIED POSTPROCEDURAL STATES (3) COPD (chronic obstructive pulmonary disease) Code(s): J44.9 - CHRONIC OBSTRUCTIVE PULMONARY DISEASE, UNSPECIFIED (4) End stage renal disease on dialysis Code(s): N18.6 - END STAGE RENAL DISEASE; Z99.2 - DEPENDENCE ON RENAL DIALYSIS (5) Hypertensive cardiomegaly with heart failure Code(s): I11.0 - HYPERTENSIVE HEART DISEASE WITH HEART FAILURE
[2018-10-27 18:55] VITALS: BP 134/57; PULSE 65; TEMP 97.5
[2018-10-27] MEDS ORDERED: METHADONE HCL 10 MG TABLET ONE (19:26)
[2018-10-27] MEDS ORDERED: METHADONE HCL 40 MG DISPERSABLE TABLET ONE (19:26)
[2018-10-27] MEDS ORDERED: METHADONE 40 MG, METHADONE 20 MG PO ONE (20:00)
[2018-10-27] MEDS ORDERED: METHADONE HCL 40 MG DISPERSABLE TABLET PO ONE (20:00)
[2018-10-31] MEDS ORDERED: ERGOCALCIFEROL (VIT D2) 50,000 UNIT (1.25 MG) CAPSULE PO SCH (10:00)
== END 2018-10-27 21:30 | disposition home or self-care (01) | DRG 682 ==
LOC: JER 14:47 → JERBED 18:50 → J4W 10-20 21:11
PROVIDERS: ADMIT Internal Medicine; ATTEND Internal Medicine
PROC: 5A1D70Z Performance of Urinary Filtration, Intermittent, Less than 6 Hours Per Day (ICD-10-PCS; principal; 2018-10-22)
PROC: 5A1D70Z Performance of Urinary Filtration, Intermittent, Less than 6 Hours Per Day (ICD-10-PCS; 2018-10-24)
PROC: 5A1D70Z Performance of Urinary Filtration, Intermittent, Less than 6 Hours Per Day (ICD-10-PCS; 2018-10-26)
PROC: 5A1D70Z Performance of Urinary Filtration, Intermittent, Less than 6 Hours Per Day (ICD-10-PCS; 2018-10-27)
DX: N17.9 Acute kidney failure, unspecified (principal); I50.33 Acute on chronic diastolic (congestive) heart failure; J96.20 Acute and chronic respiratory failure, unspecified whether with hypoxia or hypercapnia; F11.20 Opioid dependence, uncomplicated; I13.2 Hypertensive heart and chronic kidney disease with heart failure and with stage 5 chronic kidney disease, or end stage renal disease; J44.9 Chronic obstructive pulmonary disease, unspecified; E78.00 Pure hypercholesterolemia, unspecified; E55.9 Vitamin D deficiency, unspecified; E87.70 Fluid overload, unspecified; E11.22 Type 2 diabetes mellitus with diabetic chronic kidney disease; D64.9 Anemia, unspecified; N18.6 End stage renal disease; E11.51 Type 2 diabetes mellitus with diabetic peripheral angiopathy without gangrene; M32.0 Drug-induced systemic lupus erythematosus; Z86.19 Personal history of other infectious and parasitic diseases; Z87.891 Personal history of nicotine dependence; Z79.4 Long term (current) use of insulin; Z85.118 Personal history of other malignant neoplasm of bronchus and lung; Z99.2 Dependence on renal dialysis; Z90.2 Acquired absence of lung [part of]
CPT/HCPCS: 36415; 71045-TC-FY; 76000-TC-FY; 80048; 80053; 82550; 82962; 83735; 83880; 84100; 84484; 85025; 85027; 85610; 85730; 93005; 93010; 93306-TC; 97116-GP; 97161-GP; 99285-25; J0885; J1644; J2997

== ENCOUNTER 2019-01-01 14:37 | Observation (INO) | payer OTHER ==
--- NOTE | 2019-01-01 15:28 | PDOC ---
History of Present Illness - General Chief Complaint: Syncope/Near Syncope Stated Complaint: SYNCOPE Time Seen by Provider: 01/01/19 15:06 History Source: Patient Exam Limitations: No Limitations - History of Present Illness Initial Comments: 01/01/19 15:21 68 yo M PMH HTN, ESRD on HD , IDDM, COPD, HLD, femoral stents on aspirin/Plavix, R sided lung cancer s/p R lower lobectomy, hx opioid dependence on methadone for 30+ years, presenting to ED after syncope. Patient had just completed HD and states that he stood up, felt woozy, and woke up in the chair. Reports that he was caught and placed in chair, no fall or head trauma, LOC for few seconds. States that it feels similar to prior episodes when his blood sugar was low. Patient states that he still makes urine. Currently denies any symptoms or concerns. Specifically denies SOB, CP, abd pain , fevers/chills, constipation/diarrhea, LOZANO, N/V. Past History - Past Medical History Allergies/Adverse Reactions: Allergies Allergy/AdvReac Type Severity Reaction Status Date / Time No Known Allergies Allergy Verified 09/17/18 11:30 Home Medications: Ambulatory Orders Methadone [Dolophine -] 60 mg PO DAILY@0600 tablet MDD 1 10/18/18 Methadone [Dolophine -] 60 mg PO DAILY@0600 tablet MDD 1 10/18/18 Acetaminophen [Acetaminophen ER] 650 mg PO Q6H PRN 10/19/18 Aspirin [Aspirin EC] 81 mg PO DAILY #30 tablet. 10/27/18 Atorvastatin Ca [Lipitor] 20 mg PO HS #30 tablet 10/27/18 Calcium Acetate [Phoslo -] 667 mg PO TIDCM #90 capsule 10/27/18 Cholecalciferol (Vitamin D3) [Dialyvite Vitamin D3 Max] 50,000 unit PO WEEKLY # 4 tablet 10/27/18 Clopidogrel Bisulfate [Plavix -] 75 mg PO DAILY #30 tablet 10/27/18 Isosorbide Mononitrate [Imdur -] 60 mg PO DAILY #30 tab.sr.24h 10/27/18 Labetalol HCl [Normodyne -] 300 mg PO BID #60 tablet 10/27/18 Nifedipine ER [Procardia XL -] 90 mg PO DAILY #30 tab.er.24 10/27/18 Pantoprazole Sodium [Protonix -] 40 mg PO DAILY #30 tablet.ec 10/27/18 Torsemide [Demadex -] 80 mg PO DAILY #30 tablet 10/27/18 predniSONE [Deltasone -] See Taper PO DAILY #7 tablet 10/27/18 Cancer: Yes (lung) Cardiac Disorders: Yes COPD: Yes CHF: Yes Diabetes: Yes (nneuropathy) Dialysis: Yes (M/W/F(RT.SIDE CHEST PERMA CATH)) HTN: Yes Hypercholesterolemia: Yes - Surgical History Lung Surgery: Yes (RLL LOBECTOMY) - Suicide/Smoking/Psychosocial Hx Smoking History: Former smoker Have you smoked in the past 12 months: No Hx Alcohol Use: No Drug/Substance Use Hx: Yes Substance Use Type: Cocaine, Heroin Hx Substance Use Treatment: Yes Review of Systems - Review of Systems Constitutional: No: Chills, Diaphoresis, Fever HEENTM: No: Recent change in vision, Double Vision, Difficulty Swallowing Respiratory: No: Cough, Orthopnea, Shortness of Breath, Hemoptysis Cardiac (ROS): Yes: Syncope. No: Chest Pain, Irregular Heart Rate, Lightheadedness ABD/GI: No: Abdominal Distended, Blood Streaked Bowels, Constipated, Diarrhea, Nausea, Vomiting : No: Burning, Dysuria, Discharge, Frequency, Flank Pain, Hematuria Musculoskeletal: No: Back Pain Integumentary: No: Symptoms Reported Neurological: No: Headache, Numbness, Tingling, Weakness, Dizziness Endocrine: No: Symptoms Reported Hematologic/Lymphatic: No: Symptoms Reported *Physical Exam - Physical Exam General Appearance: Yes: Nourished, Appropriately Dressed. No: Apparent Distress HEENT: positive: EOMI, SARAH, Normal ENT Inspection, Pharynx Normal Neck: positive: Trachea midline, Supple. negative: Tender Respiratory/Chest: positive: Lungs Clear, Normal Breath Sounds. negative: Chest Tender, Respiratory Distress, Accessory Muscle Use Cardiovascular: positive: Regular Rhythm, Regular Rate Gastrointestinal/Abdominal: positive: Normal Bowel Sounds, Soft. negative: Tender Musculoskeletal: positive: Normal Inspection. negative: CVA Tenderness Extremity: positive: Normal Capillary Refill, Normal Inspection, Normal Range of Motion Integumentary: positive: Normal Color, Dry, Warm Neurologic: positive: water well driller II-XII NML intact, Fully Oriented, Alert, Normal Mood/ Affect, Normal Response, Motor Strength 08/12 ED Treatment Course - LABORATORY CBC & Chemistry Diagram: 01/01/19 15:55 01/01/19 15:55 Medical Decision Making - Medical Decision Making 01/01/19 15:32 68 yo M extensive medical history, here after syncope. -concern for metabolic derangement vs. UTI vs. ACS vs. PNA. - CBC, CMP, trop, EKG, CXR, coags, UA/UC - continue to monitor 01/01/19 15:53 EKG 64 bpm, incomplete LBBB, no ST segment changes *DC/Admit/Observation/Transfer Diagnosis at time of Disposition: Syncope - Discharge Dispostion Condition at time of disposition: Stable Decision to Admit order: Yes - Referrals Referrals: Rex Hillman MD [Primary Care Provider] - - Patient Instructions - Post Discharge Activity
--- NOTE | 2019-01-01 15:41 | EKG ---
Test Reason : Blood Pressure : / mmHG Vent. Rate : 064 BPM Atrial Rate : 064 BPM P-R Int : 200 ms QRS Dur : 108 ms QT Int : 430 ms P-R-T Axes : 039 024 042 degrees QTc Int : 443 ms SINUS RHYTHM WITH OCCASIONAL PREMATURE VENTRICULAR COMPLEXES INCOMPLETE LEFT BUNDLE BRANCH BLOCK BORDERLINE ECG WHEN COMPARED WITH ECG OF 19-OCT-2018 14:50, PREMATURE VENTRICULAR COMPLEXES ARE NOW PRESENT INCOMPLETE LEFT BUNDLE BRANCH BLOCK IS NOW PRESENT Confirmed by MD AMANDA, RAMESH ([id number]) on 01/01/2019 3:41:32 PM Referred By: Confirmed By:RAMESH PATEL MD
[2019-01-01 16:15] LABS: BASO % 0.4 % (0-2.0); EOS % 1.8 % (0-4.5); HEMATOCRIT 38.7 % (35.4-49); HEMOGLOBIN 12.2 GM/dL (11.7-16.9); LYMPH % 8.8 % (8-40); MCH 27.4 pg (25.7-33.7); MCHC 31.6 g/dl (32.0-35.9); MEAN CELL VOLUME 86.9 fl (80-96); MEAN PLT VOLUME 7.8 fl (7.5-11.1); MONO % 3.9 % (3.8-10.2); NEUT % 85.1 % (42.8-82.8); PLATELET COUNT 284 K/MM3 (134-434); RBC 4.46 M/mm3 (4.00-5.60); WHITE BLOOD COUNT 9.8 K/mm3 (4.0-10.0)
[2019-01-01 16:41] LABS: INR 0.93 (0.83-1.09)
[2019-01-01 16:43] LABS: ACTIVATED PTT 27.8 SECONDS (25.2-36.5)
[2019-01-01 16:52] LABS: ALBUMIN 3.5 g/dl (3.4-5.0); BILIRUBIN,TOTAL 0.3 mg/dL (0.2-1); BLOOD UREA NITROGEN 42.2 mg/dL (7-18); CALCIUM 8.8 mg/dL (8.5-10.1); CREATININE 2.4 mg/dL (0.55-1.3); POTASSIUM 3.9 mmol/L (3.5-5.1); TOT PROT 7.1 g/dl (6.4-8.2)
[2019-01-01 16:56] VITALS: BMI 25.6
[2019-01-01 17:20] LABS: URINE APPEARANCE Cloudy; URINE BILIRUBIN Negative (NEGATIVE); URINE COLOR Yellow; URINE GLUCOSE (UA) Negative (NEGATIVE); URINE KETONE Negative (NEGATIVE); URINE LEUK ESTERASE 2+ (NEGATIVE); URINE NITRITE Negative (NEGATIVE); URINE PROTEIN 2+ (NEGATIVE); URINE UROBILINOGEN 0.2 mg/dL (0.2-1.0)
--- NOTE | 2019-01-01 18:24 | PDOC ---
Attending Attestation - Resident Resident Name: Viviane Nj - ED Attending Attestation I have performed the following: I have examined & evaluated the patient, The case was reviewed & discussed with the resident, I agree w/resident's findings & plan, Exceptions are as noted - HPI HPI: 01/01/19 18:12 68 yo male had syncopal episode after his dialysis session was completed,he stood up and fainted but was caught and placed in a chair,he did not have any head trauma - Physicial Exam PE: 01/01/19 18:[address] Nj's physical exam - Medical Decision Making 01/01/19 18:24 pt has positive troponin and new LBBB so he will be admitted to [facility] tele
--- NOTE | 2019-01-01 20:08 | HP ---
Admitting History and Physical - Primary Care Physician PCP: - Admission Chief Complaint: Syncope History of Present Illness: 68 year old male with PMH HTN, ESRD on HD , IDDM, COPD, HLD, femoral stents on Plavix, R sided lung cancer s/p R lower lobectomy, hx opioid dependence on methadone, arrived to ED for episode of syncope. According to patient after completing HD session he tired to stand up, felt faint, and woke up in the chair 2-3 seconds later. Staff at he center helped him to the chair, he did not fall, or hit his head, LOC for few seconds. Patient states similar epsiode of fainting happens when he does not eat and blood glucose drops. Patient denies SOB, CP, dizziness, headache, abd pain, N/V, fevers/chills, constipation/diarrhea. History Source: Patient Limitations to Obtaining History: No Limitations - Past Medical History Cardiovascular: Yes: CHF, HTN, Hyperlipdemia Pulmonary: Yes: COPD Gastrointestinal: Yes: GERD Heme/Onc: Yes: Cancer (Lung cancer) Endocrine: Yes: Diabetes Mellitus - Past Surgical History Additional Past Surgical History: Right side lung cancer s/p right lower lobecttomy, h/o of femoral stent (on Plavix, Asa) - Smoking History Smoking history: Former smoker Have you smoked in the past 12 months: No - Alcohol/Substance Use Hx Alcohol Use: Yes (occasional ) History of Substance Use: reports: Cocaine, Heroin - Social History ADL: Independent History of Recent Travel: No Home Medications - Allergies Allergies/Adverse Reactions: Allergies Allergy/AdvReac Type Severity Reaction Status Date / Time No Known Allergies Allergy Verified 09/17/18 11:30 - Home Medications Home Medications: Ambulatory Orders Methadone [Dolophine -] 60 mg PO DAILY@0600 tablet MDD 1 10/18/18 Methadone [Dolophine -] 60 mg PO DAILY@0600 tablet MDD 1 10/18/18 Acetaminophen [Acetaminophen ER] 650 mg PO Q6H PRN 10/19/18 Aspirin [Aspirin EC] 81 mg PO DAILY #30 tablet. 10/27/18 Atorvastatin Ca [Lipitor] 20 mg PO HS #30 tablet 10/27/18 Calcium Acetate [Phoslo -] 667 mg PO TIDCM #90 capsule 10/27/18 Cholecalciferol (Vitamin D3) [Dialyvite Vitamin D3 Max] 50,000 unit PO WEEKLY # 4 tablet 10/27/18 Clopidogrel Bisulfate [Plavix -] 75 mg PO DAILY #30 tablet 10/27/18 Isosorbide Mononitrate [Imdur -] 60 mg PO DAILY #30 tab.sr.24h 10/27/18 Labetalol HCl [Normodyne -] 300 mg PO BID #60 tablet 10/27/18 Nifedipine ER [Procardia XL -] 90 mg PO DAILY #30 tab.er.24 10/27/18 Pantoprazole Sodium [Protonix -] 40 mg PO DAILY #30 tablet.ec 10/27/18 Torsemide [Demadex -] 80 mg PO DAILY #30 tablet 10/27/18 predniSONE [Deltasone -] See Taper PO DAILY #7 tablet 10/27/18 Family Medical History Family Hx Cancer: Sister (Sister lung ca) Family Hx Diabetes: Mother, Sister (Mother and sister both had DM ) Review of Systems - Review of Systems Constitutional: reports: No Symptoms Eyes: reports: No Symptoms HENT: reports: No Symptoms Neck: reports: No Symptoms Cardiovascular: reports: No Symptoms Respiratory: reports: No Symptoms Gastrointestinal: reports: No Symptoms Genitourinary: reports: No Symptoms Musculoskeletal: reports: No Symptoms Neurological: reports: No Symptoms, Syncope Endocrine: reports: No Symptoms Hematology/Lymphatic: reports: No Symptoms Psychiatric: reports: No Symptoms Physical Examination Vital Signs: Vital Signs Temperature 97.9 F 01/01/19 14:37 Pulse Rate 71 01/01/19 17:01 Respiratory Rate 18 01/01/19 17:01 Blood Pressure 160/72 01/01/19 17:01 O2 Sat by Pulse Oximetry (%) 98 01/01/19 17:01 Constitutional: Yes: No Distress, Calm Eyes: Yes: Conjunctiva Clear, EOM Intact HENT: Yes: Atraumatic, Normocephalic Neck: Yes: Supple, Trachea Midline Cardiovascular: Yes: Regular Rate and Rhythm Respiratory: Yes: Regular, CTA Bilaterally Gastrointestinal: Yes: Normal Bowel Sounds, Soft Musculoskeletal: Yes: WNL Extremities: Yes: WNL Edema: No Integumentary: Yes: WNL Neurological: Yes: Alert, Oriented Labs: CBC, BMP 01/01/19 15:55 01/01/19 15:55 Imaging - Results Chest X-ray: Report Reviewed (CXR: right pleural effusion, no acute pathology) EKG: Report Reviewed (EKG: NSR occasional PVCs, new finding of incomplete left bundle branch block trops: 0.06) Other: Report Reviewed Problem List - Problems (1) Syncope Code(s): R55 - SYNCOPE AND COLLAPSE (2) End stage renal disease on dialysis Code(s): N18.6 - END STAGE RENAL DISEASE; Z99.2 - DEPENDENCE ON RENAL DIALYSIS (3) HTN (hypertension) Code(s): I10 - ESSENTIAL (PRIMARY) HYPERTENSION (4) HLD (hyperlipidemia) Code(s): E78.5 - HYPERLIPIDEMIA, UNSPECIFIED (5) CHF exacerbation Code(s): I50.9 - HEART FAILURE, UNSPECIFIED Qualifiers: Heart failure type: diastolic Qualified Code(s): I50.33 - Acute on chronic diastolic (congestive) heart failure (6) COPD (chronic obstructive pulmonary disease) Code(s): J44.9 - CHRONIC OBSTRUCTIVE PULMONARY DISEASE, UNSPECIFIED (7) Diabetes Code(s): E11.9 - TYPE 2 DIABETES MELLITUS WITHOUT COMPLICATIONS Qualifiers: Diabetes mellitus type: type 2 Chronic kidney disease stage: on chronic dialysis (8) History of substance abuse Code(s): F19.11 - OTHER PSYCHOACTIVE SUBSTANCE ABUSE, IN REMISSION Assessment/Plan 68 year old male with PMH HTN, ESRD on HD Sibw-Ezuz-Hym, IDDM, COPD, HLD, femoral stents on Plavix, R sided lung cancer s/p R lower lobectomy, hx opioid dependence on methadone, arrived to ED for episode of syncope. #Syncope rule our ACS tele obs - trops: 0.06, f/up #2 - EKG shows: NSS with occasional PVCs, noted with incomplete left bundle branch block not noted on prior reading - cbc, cmp unimpressive, UA -2 leukocyte, pending Ucx - Continuos cardiac monitoring - follow up cardiology in AM - follow up cbc, bmp, lipids in AM # HTN, CHF, and h/o femoral stents - Aspirin 81 mg PO DAILY - Atorvastatin Ca 20 mg PO HS - Clopidogrel Bisulfate 75 mg PO DAILY - Isosorbide Mononitrate 60 mg PO DAILY - Labetalol HCl 300 mg PO BID - Nifedipine ER 90 mg PO DAILY - Torsemide 80 mg PO DAILY - monitor vitals q 4-6 hours # ESRD ON HD ( Mon) - Continue with dialysis per schdule - Continue with Phoslo 667 po TID # GERD - Continue with Protonix 40 mg daily #IDDM - monitor FSBS - coverage with novolog sliding scale # h/o of substance abuse - Methadone 60 mg PO DAILY Visit type - Emergency Visit Emergency Visit: Yes Care time: The patient presented to the Emergency Department on the above date and was hospitalized for further evaluation of their emergent condition. - New Patient This patient is new to me today: Yes Date on this admission: 01/01/19 - Critical Care Critical Care patient: No
[2019-01-01] MEDS ORDERED: ACETAMINOPHEN 325 MG TABLET (FP) PO PRN (20:49)
[2019-01-01] MEDS ORDERED: ATORVASTATIN CA 20 MG TABLET (FP) PO SCH (22:00)
[2019-01-01] MEDS ORDERED: ATORVASTATIN CA 20 MG TABLET (FP) ONE (22:47)
[2019-01-01] MEDS ORDERED: LABETALOL HCL 100 MG TABLET (FP) ONE (22:48)
[2019-01-01] MEDS: LABETALOL HCL 100 MG TABLET (FP) PO SCH (22:54)
[2019-01-01 23:04] LABS: EPI CELLS 4.5 /HPF (0-5/HPF); HYALINE CASTS 11.66 /lpf (0-8); URINE BACTERIA 1.4 /hpf (NEGATIVE); URINE RBC 5.2 /hpf (0-4); URINE WBC 541.2 /hpf (0-5); YEAST FEW (NEGATIVE)
[2019-01-02] MEDS ORDERED: METHADONE HCL 10 MG TABLET PO SCH (06:00)
[2019-01-02] MEDS ORDERED: INSULIN SLIDING SCALE (NOVOLOG) 1 VIAL SQ SCH (07:00)
[2019-01-02 07:42] LABS: BLOOD UREA NITROGEN 59.2 mg/dL (7-18); CALCIUM 8.7 mg/dL (8.5-10.1); POTASSIUM 4.3 mmol/L (3.5-5.1)
[2019-01-02 07:44] LABS: HEMATOCRIT 35.4 % (35.4-49); HEMOGLOBIN 11.4 GM/dL (11.7-16.9); MCH 27.8 pg (25.7-33.7); MCHC 32.2 g/dl (32.0-35.9); MEAN CELL VOLUME 86.2 fl (80-96); MEAN PLT VOLUME 8.5 fl (7.5-11.1); PLATELET COUNT 264 K/MM3 (134-434); RDW 19.2 % (11.9-15.9); WHITE BLOOD COUNT 10.7 K/mm3 (4.0-10.0)
[2019-01-02 07:48] LABS: CHOLESTEROL 174 mg/dL (50-200); HDL CHOLESTEROL 37 mg/dL (40-60); TRIGLYCERIDES 203 mg/dL (0-150)
[2019-01-02] MEDS: CALCIUM ACETATE 667 MG CAPSULE (FP) PO SCH ×2 (08:40→13:32)
[2019-01-02] MEDS: LABETALOL HCL 100 MG TABLET (FP) PO SCH (09:12)
[2019-01-02] MEDS ORDERED: METHADONE HCL 10 MG TABLET ONE (09:16)
[2019-01-02] MEDS ORDERED: METHADONE HCL 40 MG DISPERSABLE TABLET ONE (09:16)
[2019-01-02] MEDS ORDERED: ISOSORBIDE MONONITRATE 60 MG TAB.SR.24H (FP) PO SCH (10:00)
[2019-01-02] MEDS ORDERED: NIFEdipine E.R. 90 MG TABLET (FP) PO SCH (10:00)
[2019-01-02] MEDS ORDERED: PANTOPRAZOLE 40 MG TABLET (FP) PO SCH (10:00)
[2019-01-02] MEDS ORDERED: METHADONE 40 MG, METHADONE 20 MG PO SCH (10:00)
[2019-01-02] MEDS ORDERED: TORSEMIDE 20 MG TABLET (FP) PO SCH (10:00)
[2019-01-02] MEDS ORDERED: CLOPIDOGREL BISULFATE 75 MG TABLET (FP) PO SCH (10:00)
[2019-01-02] MEDS ORDERED: ASPIRIN COATED 81 MG TABLET.EC PO SCH (10:00)
--- NOTE | 2019-01-02 11:08 | CON.CARD ---
Cardiology Consult (text) - Consultation Consultation Note: Consult Consult Specialty:: Cardiology Referred by:: Medicine Reason for Consultation:: syncope - History of Present Illness Chief Complaint: syncope History of Present Illness: 68M h/o HTN, DM, HLD, PAD s/p femoral stent, prior smoker, R sided lung ca s/p partial resection, ESRD on HD p/w syncope. [place] in usual state of health, was at dialysis yesterday and after session complete he stood up, felt dizzy/ lightheaded and passed out. He has had episodes of similar dizziness after dialysis with low blood sugar or when he was told "they took off too much water. " Now feels at baseline. No chest pain, palps, dyspnea, edema - Alcohol/Substance Use Hx Alcohol Use: No - Smoking History Smoking history: Never smoked Home Medications - Allergies Allergies/Adverse Reactions: Allergies Allergy/AdvReac Type Severity Reaction Status Date / Time No Known Allergies Allergy Verified 09/17/18 11:30 Ambulatory Orders Methadone [Dolophine -] 60 mg PO DAILY@0600 tablet MDD 1 10/18/18 Methadone [Dolophine -] 60 mg PO DAILY@0600 tablet MDD 1 10/18/18 Acetaminophen [Acetaminophen ER] 650 mg PO Q6H PRN 10/19/18 Aspirin [Aspirin EC] 81 mg PO DAILY #30 tablet.dr 10/27/18 Atorvastatin Ca [Lipitor] 20 mg PO HS #30 tablet 10/27/18 Calcium Acetate [Phoslo -] 667 mg PO TIDCM #90 capsule 10/27/18 Cholecalciferol (Vitamin D3) [Dialyvite Vitamin D3 Max] 50,000 unit PO WEEKLY # 4 tablet 10/27/18 Clopidogrel Bisulfate [Plavix -] 75 mg PO DAILY #30 tablet 10/27/18 Isosorbide Mononitrate [Imdur -] 60 mg PO DAILY #30 tab.sr.24h 10/27/18 Labetalol HCl [Normodyne -] 300 mg PO BID #60 tablet 10/27/18 Nifedipine ER [Procardia XL -] 90 mg PO DAILY #30 tab.er.24 10/27/18 Pantoprazole Sodium [Protonix -] 40 mg PO DAILY #30 tablet.ec 10/27/18 Torsemide [Demadex -] 80 mg PO DAILY #30 tablet 10/27/18 predniSONE [Deltasone -] See Taper PO DAILY #7 tablet 10/27/18 Family Disease History - Family Disease History Family History: Unremarkable Review of Systems - Review of Systems Constitutional: reports: No Symptoms Eyes: reports: No Symptoms HENT: reports: No Symptoms Neck: reports: No Symptoms Cardiovascular: reports: Edema, Shortness of Breath Respiratory: reports: Cough Gastrointestinal: reports: No Symptoms Genitourinary: reports: No Symptoms Musculoskeletal: reports: No Symptoms Integumentary: reports: No Symptoms Neurological: reports: No Symptoms Endocrine: reports: No Symptoms Hematology/Lymphatic: reports: No Symptoms Psychiatric: reports: No Symptoms Vital Signs Period Temp Pulse Resp BP Sys/Basnal Pulse Ox Last 24 Hr 97.9 F-97.9 F 60-71 18-18 154-180/60-72 98-100 Constitutional: Yes: Well Nourished, No Distress, Calm Respiratory: Yes: Regular, CTAB Gastrointestinal: Yes: Normal Bowel Sounds, Soft Cardiovascular: Yes: Regular Rate and Rhythm, nl s1 s2 JVD: No Extremities: No: Cold Edema: no Integumentary: No: Jaundice Neurological: Yes: Alert, Oriented Psychiatric: No: Agitated Laboratory Last Values WBC 10.7 K/mm3 (4.0-10.0) H 01/02/19 06:05 RBC 4.10 M/mm3 (4.00-5.60) 01/02/19 06:05 Hgb 11.4 GM/dL (11.7-16.9) L 01/02/19 06:05 Hct 35.4 % (35.4-49) 01/02/19 06:05 MCV 86.2 fl (80-96) 01/02/19 06:05 MCH 27.8 pg (25.7-33.7) 01/02/19 06:05 MCHC 32.2 g/dl (32.0-35.9) 01/02/19 06:05 RDW 19.2 % (11.9-15.9) H 01/02/19 06:05 Plt Count 284 K/MM3 (134-434) D 01/01/19 15:55 MPV 8.5 fl (7.5-11.1) 01/02/19 06:05 Absolute Neuts (auto) 8.3 K/mm3 (1.5-8.0) H 01/01/19 15:55 Neutrophils % 85.1 % (42.8-82.8) H D 01/01/19 15:55 Lymphocytes % 8.8 % (8-40) D 01/01/19 15:55 Monocytes % 3.9 % (3.8-10.2) 01/01/19 15:55 Eosinophils % 1.8 % (0-4.5) D 01/01/19 15:55 Basophils % 0.4 % (0-2.0) 01/01/19 15:55 Nucleated RBC % 0 % (0-0) 01/01/19 15:55 PT with INR 11.00 SEC (9.7-13.0) 01/01/19 15:55 INR 0.93 (0.83-1.09) 01/01/19 15:55 PTT (Actin FS) 27.8 SECONDS (25.2-36.5) 01/01/19 15:55 Sodium 137 mmol/L (136-145) 01/02/19 06:05 Potassium 4.3 mmol/L (3.5-5.1) 01/02/19 06:05 Chloride 105 mmol/L (98-107) 01/02/19 06:05 Carbon Dioxide 21 mmol/L (21-32) 01/02/19 06:05 Anion Gap 11 MMOL/L (8-16) 01/02/19 06:05 BUN 59.2 mg/dL (7-18) H 01/02/19 06:05 Creatinine 3.0 mg/dL (0.55-1.3) H 01/02/19 06:05 Est GFR (CKD-EPI)AfAm 23.31 01/02/19 06:05 Est GFR (CKD-EPI)NonAf 20.11 01/02/19 06:05 POC Glucometer 107 UNITS (80-120) 01/02/19 00:58 Random Glucose 114 mg/dL (74-106) H 01/02/19 06:05 Calcium 8.7 mg/dL (8.5-10.1) 01/02/19 06:05 Total Bilirubin 0.3 mg/dL (0.2-1) 01/01/19 15:55 AST 22 U/L (15-37) 01/01/19 15:55 ALT 21 U/L (13-61) 01/01/19 15:55 Alkaline Phosphatase 99 U/L (45-117) 01/01/19 15:55 Troponin I 0.11 ng/ml (0.00-0.05) H 01/02/19 06:05 Total Protein 7.1 g/dl (6.4-8.2) 01/01/19 15:55 Albumin 3.5 g/dl (3.4-5.0) 01/01/19 15:55 Triglycerides 203 mg/dL (0-150) H 01/02/19 06:05 Cholesterol 174 mg/dL (50-200) 01/02/19 06:05 Total LDL Cholesterol 101 mg/dL (5-100) H 01/02/19 06:05 HDL Cholesterol 37 mg/dL (40-60) L 01/02/19 06:05 Urine Color Yellow 01/01/19 16:30 Urine Appearance Cloudy 01/01/19 16:30 Urine pH 5.0 (5.0-8.0) 01/01/19 16:30 Ur Specific [place] 1.025 (1.010-1.035) 01/01/19 16:30 Urine Protein 2+ (NEGATIVE) H 01/01/19 16:30 Urine Glucose (UA) Negative (NEGATIVE) 01/01/19 16:30 Urine Ketones Negative (NEGATIVE) 01/01/19 16:30 Urine Blood Trace-intact (NEGATIVE) 01/01/19 16:30 Urine Nitrite Negative (NEGATIVE) 01/01/19 16:30 Urine Bilirubin Negative (NEGATIVE) 01/01/19 16:30 Urine Urobilinogen 0.2 mg/dL (0.2-1.0) 01/01/19 16:30 Ur Leukocyte Esterase 2+ (NEGATIVE) H 01/01/19 16:30 Urine WBC (Auto) 541.2 /hpf (0-5) 01/01/19 16:30 Urine RBC (Auto) 5.2 /hpf (0-4) 01/01/19 16:30 Urine Casts (Auto) 11.66 /lpf (0-8) 01/01/19 16:30 U Pathogenic Cast Auto None seen /lpf (NEGATIVE) 01/01/19 16:30 U Epithel Cells (Auto) 4.5 /HPF (0-5/HPF) 01/01/19 16:30 Urine Bacteria (Auto) 1.4 /hpf (NEGATIVE) 01/01/19 16:30 Urine Yeast (Auto) Few (NEGATIVE) 01/01/19 16:30 Assessment/Plan mibi 2015 no ischemia, nl EF echo 09/2018 nl LV function, mild MAC, tr MR, RVSP 32 mmHg echo 10/2018 nl LV function, EF 55-60%, grade II diastolic dysfunction, RV nl, mild MR, mild AR, mod ao root dilatation CXR mod R pleural effusion stable since 10/2018 EKG: sinus, PVC, no ischemic changes tele: sinus, sinus nacho 68M h/o HTN, DM, HLD, PAD s/p femoral stent, prior smoker, R sided lung ca s/p partial resection, ESRD on HD p/w syncope syncope - EKG tracing reviewed, similar to prior, no ischemic changes - trop indeterminate range, flat trend - unlikely ACS - history c/w vasovagal syncope vs orthostatic after HD - monitoring on tele - no events HTN - stable, cont current meds HLD - cont statin PAD - cont statin, plavix DM - manage per primary ESRD on HD - manage per renal, cont torsemide
--- NOTE | 2019-01-02 11:40 | DS ---
Physical Examination Vital Signs: Vital Signs Temperature 97.9 F 01/02/19 08:00 Pulse Rate 60 01/02/19 08:00 Respiratory Rate 18 01/02/19 08:00 Blood Pressure 180/70 H 01/02/19 08:00 O2 Sat by Pulse Oximetry (%) 98 01/02/19 08:00 Labs: CBC, BMP 01/02/19 06:05 01/02/19 06:05 Discharge Summary Reason For Visit: SYNCOPE Current Active Problems HLD (hyperlipidemia) (Acute) HTN (hypertension) (Acute) History of substance abuse (Acute) Syncope (Acute) Condition: Stable - Instructions - Home Medications Comprehensive Discharge Medication List: Ambulatory Orders Methadone [Dolophine -] 60 mg PO DAILY@0600 tablet MDD 1 10/18/18 Methadone [Dolophine -] 60 mg PO DAILY@0600 tablet MDD 1 10/18/18 Acetaminophen [Acetaminophen ER] 650 mg PO Q6H PRN 10/19/18 Aspirin [Aspirin EC] 81 mg PO DAILY #30 tablet.dr 10/27/18 Atorvastatin Ca [Lipitor] 20 mg PO HS #30 tablet 10/27/18 Calcium Acetate [Phoslo -] 667 mg PO TIDCM #90 capsule 10/27/18 Cholecalciferol (Vitamin D3) [Dialyvite Vitamin D3 Max] 50,000 unit PO WEEKLY # 4 tablet 10/27/18 Clopidogrel Bisulfate [Plavix -] 75 mg PO DAILY #30 tablet 10/27/18 Isosorbide Mononitrate [Imdur -] 60 mg PO DAILY #30 tab.sr.24h 10/27/18 Labetalol HCl [Normodyne -] 300 mg PO BID #60 tablet 10/27/18 Nifedipine ER [Procardia XL -] 90 mg PO DAILY #30 tab.er.24 10/27/18 Pantoprazole Sodium [Protonix -] 40 mg PO DAILY #30 tablet.ec 10/27/18 Torsemide [Demadex -] 80 mg PO DAILY #30 tablet 10/27/18 predniSONE [Deltasone -] See Taper PO DAILY #7 tablet 10/27/18
[2019-01-02 14:58] VITALS: BP 106/48; PULSE 55; TEMP 97
== END 2019-01-02 15:33 | disposition home or self-care (01) ==
LOC: JER 14:37 → INTOOBSV 18:52 → JERBED 18:52
PROVIDERS: ADMIT Internal Medicine; ATTEND Internal Medicine
DX: R55 Syncope and collapse (principal); E11.22 Type 2 diabetes mellitus with diabetic chronic kidney disease; E11.42 Type 2 diabetes mellitus with diabetic polyneuropathy; I13.2 Hypertensive heart and chronic kidney disease with heart failure and with stage 5 chronic kidney disease, or end stage renal disease; I50.33 Acute on chronic diastolic (congestive) heart failure; N18.6 End stage renal disease; Z99.2 Dependence on renal dialysis; Z79.4 Long term (current) use of insulin; E78.5 Hyperlipidemia, unspecified; J44.9 Chronic obstructive pulmonary disease, unspecified; F11.20 Opioid dependence, uncomplicated; K21.9 Gastro-esophageal reflux disease without esophagitis; I73.9 Peripheral vascular disease, unspecified; Z85.118 Personal history of other malignant neoplasm of bronchus and lung; Z90.2 Acquired absence of lung [part of]; Z95.820 Peripheral vascular angioplasty status with implants and grafts; Z79.02 Long term (current) use of antithrombotics/antiplatelets; Z79.82 Long term (current) use of aspirin; Z87.891 Personal history of nicotine dependence
CPT/HCPCS: 36415; 71046-TC-FY; 80048; 80053; 80061; 81003; 82962; 83721; 84484; 85025; 85027; 85610; 85730; 87077; 87086; 93005; 93010; 99285-25; G0378

== ENCOUNTER 2019-03-22 13:07 | Inpatient (IN) | payer OTHER ==
--- NOTE | 2019-03-22 14:05 | PDOC ---
History of Present Illness - General Chief Complaint: Shortness of Breath Stated Complaint: DIFFICULTY BREATHING - History of Present Illness Initial Comments: 03/22/19 14:02 68 yo M PMH HTN, hx renal failure on HD (now off dialysis for 2 weeks with Permacath removed, reportedly now has normal kidney function), IDDM, COPD, HLD, femoral stents on aspirin/Plavix, R sided lung cancer s/p R lower lobectomy, hx opioid dependence on methadone for 30+ years, presenting to ED with SOB. Reports that he began to have worsening SOB yesterday, but it became worse today. Also felt that his L arm was "uncomfortable", but adamantly denies pain. States that it feels similar to prior episodes when he has been fluid overloaded. Specifically denies recent illness, CP, SOB, fevers/chills, N/V, constipation/ diarrhea, abd pain, LOZANO. Endorses SOB at rest and with exertion. Past History - Past Medical History Allergies/Adverse Reactions: Allergies Allergy/AdvReac Type Severity Reaction Status Date / Time No Known Allergies Allergy Verified 03/23/19 06:16 Home Medications: Ambulatory Orders Methadone [Dolophine -] 60 mg PO DAILY@0600 tablet MDD 1 10/18/18 Aspirin [Aspirin EC] 81 mg PO DAILY #30 tablet. 10/27/18 Atorvastatin Ca [Lipitor] 20 mg PO HS #30 tablet 10/27/18 Calcium Acetate [Phoslo -] 667 mg PO TIDCM #90 capsule 10/27/18 Cholecalciferol (Vitamin D3) [Dialyvite Vitamin D3 Max] 50,000 unit PO WEEKLY # 4 tablet 10/27/18 Clopidogrel Bisulfate [Plavix -] 75 mg PO DAILY #30 tablet 10/27/18 Isosorbide Mononitrate [Imdur -] 60 mg PO DAILY #30 tab.sr.24h 10/27/18 Labetalol HCl [Normodyne -] 300 mg PO BID #60 tablet 10/27/18 Nifedipine ER [Procardia XL -] 90 mg PO DAILY #30 tab.er.24 10/27/18 Insulin Glargine,Hum.rec.anlog [Lantus] 27 unit SQ HS 03/22/19 Omeprazole 40 mg PO DAILY 03/22/19 Torsemide [Demadex -] 100 mg PO DAILY 03/22/19 Cancer: Yes (lung) Cardiac Disorders: Yes COPD: Yes CHF: Yes Diabetes: Yes (nneuropathy) Dialysis: Yes (M/W/F(RT.SIDE CHEST PERMA CATH)) HTN: Yes Hypercholesterolemia: Yes - Surgical History Lung Surgery: Yes (RLL LOBECTOMY) - Immunization History Immunization Up to Date: Yes - Psycho Social/Smoking Cessation Hx Smoking History: Never smoked Have you smoked in the past 12 months: No Hx Alcohol Use: No Drug/Substance Use Hx: No Substance Use Type: Cocaine, Heroin Hx Substance Use Treatment: Yes Review of Systems - Review of Systems Comments:: 03/22/19 14:15 GENERAL/CONSTITUTIONAL: No fever or chills. No weakness. HEAD, EYES, EARS, NOSE AND THROAT: No change in vision. No ear pain or discharge. No sore throat. CARDIOVASCULAR: No chest pain. Significant shortness of breath both at rest and at exertion. RESPIRATORY: No cough, wheezing, or hemoptysis. GASTROINTESTINAL: No nausea, vomiting, diarrhea or constipation. GENITOURINARY: No dysuria, frequency, or change in urination. MUSCULOSKELETAL: No joint or muscle swelling or pain. No neck or back pain. SKIN: No rash NEUROLOGIC: No headache, vertigo, loss of consciousness, or change in strength/ sensation. ENDOCRINE: No increased thirst. No abnormal weight change. HEMATOLOGIC/LYMPHATIC: No anemia, easy bleeding, or history of blood clots. ALLERGIC/IMMUNOLOGIC: No hives or skin allergy *Physical Exam - Vital Signs Last Vital Signs Temp Pulse Resp BP Pulse Ox 97.6 F 87 16 181/73 H 85 L 03/22/19 13:19 03/22/19 13:19 03/22/19 13:19 03/22/19 13:19 03/22/19 13:19 - Physical Exam 03/22/19 14:17 Gen: well-developed, well-nourished, NAD Neuro: AAOX4, CN II-XII intact, FTN intact, EOMI, constricted pupils, 5/5 strength, SILT HEENT: atraumatic, normocephalic Neck: trachea midline, supple CV: regular rate, regular rhythm, no murmurs, rubs, or gallops Pulm: diminished lung sounds at the bases Abd: soft, non-distended, non-tender MSK: full ROM, intact pulses Extr: 1+ pitting edema to the knees, no deformities Skin: warm, dry ED Treatment Course - LABORATORY CBC & Chemistry Diagram: 03/23/19 05:48 03/24/19 05:55 - RADIOLOGY Radiology Studies Ordered: Category Date Time Status CXRPORT [CHEST X-RAY PORTABLE*] [RAD] Stat Radiology 03/22/19 13:55 Ordered Medical Decision Making - Medical Decision Making 03/22/19 13:45 Patient with COPD, CHF presenting with SOB, also L arm uncomfortableness. - CBC, CMP - EKG, trop - BNP - CXR - reassess 03/22/19 14:14 EKG normal sinus at 88 bpm, poor baseline quality, QTc 493, no ischemic changes 03/22/19 14:32 CXR with congestive changes similar to CXR from 3 months ago, no longer with Permacath, R lower lobectomy. 03/22/19 15:42 BNP >22853, highest it has been. Cr 2.3, troponin 0.06. Will admit. 03/22/19 15:51 Patient states that his primary care doctor is Dr. Rex Hillman. Discharge - Discharge Information Problems reviewed: Yes Clinical Impression/Diagnosis: Elevated troponin I level, CKD (chronic kidney disease), CHF exacerbation - Follow up/Referral - Patient Discharge Instructions - Post Discharge Activity
[2019-03-22 14:50] LABS: BASO % 0.5 % (0-2.0); EOS % 0.6 % (0-4.5); HEMATOCRIT 30.7 % (35.4-49); HEMOGLOBIN 10.2 GM/dL (11.7-16.9); LYMPH % 7.5 % (8-40); MCH 29.7 pg (25.7-33.7); MCHC 33.3 g/dl (32.0-35.9); MEAN CELL VOLUME 89.1 fl (80-96); MEAN PLT VOLUME 8.6 fl (7.5-11.1); MONO % 4.9 % (3.8-10.2); NEUT % 86.5 % (42.8-82.8); PLATELET COUNT 240 K/MM3 (134-434); RBC 3.44 M/mm3 (4.00-5.60); RDW 16.4 % (11.9-15.9); WHITE BLOOD COUNT 10.2 K/mm3 (4.0-10.0)
[2019-03-22 15:12] LABS: ALBUMIN 3.5 g/dl (3.4-5.0); BILIRUBIN,TOTAL 0.5 mg/dL (0.2-1); BLOOD UREA NITROGEN 70.4 mg/dL (7-18); CALCIUM 8.6 mg/dL (8.5-10.1); CREATININE 2.3 mg/dL (0.55-1.3); N-TERMINAL BNP 10341.4 pg/ml (5-125); POTASSIUM 3.7 mmol/L (3.5-5.1); TOT PROT 6.5 g/dl (6.4-8.2)
[2019-03-22] MEDS ORDERED: FUROSEMIDE 40 MG/4 ML INJECTABLE VIAL IVPUSH ONE (16:07)
--- NOTE | 2019-03-22 17:04 | PDOC ---
Documentation entered by Scotty Rodriguez SCRIBE, acting as scribe for Russel Mendiola MD. Russel Mendiola MD: This documentation has been prepared by the Jennifer sawyer Xhesika, SCRIBE, under my direction and personally reviewed by me in its entirety. I confirm that the documentation accurately reflects all work, treatment, procedures, and medical decision making performed by me. Attending Attestation - Resident Resident Name: Viviane Nj - ED Attending Attestation I have performed the following: I have examined & evaluated the patient, The case was reviewed & discussed with the resident, I agree w/resident's findings & plan, Exceptions are as noted - HPI HPI: 03/22/19 14:28 The patient is a 68 year old male with a past medical history of HTN, ESRD(on HD T//Mon, now off dialysis for 2 weeks with Port-a-cath removed), IDDM, COPD , HLD, femoral stents (on aspirin/Plavix), R sided lung cancer s/p R lower lobectomy, and opioid dependence (on methadone for 30+ years) who presents to the ED with SOB since yesterday, worse today. The patient reports new onset of L arm numbness, and oHffman while at rest (on home O2 as needed), worsened at night. Pt reports chronic LE swelling. Pt notes last time he experienced these symptoms, he had fluid in his lungs. In the ED, on arrival the patient was 85% on room air, however, improved with nasal canal. The patient denies chest pain, headache and dizziness. Denies fever, chills, cough, nausea, vomiting, diarrhea and constipation. Denies dysuria, frequency, urgency and hematuria. Allergies:, NKDA Social Hx: Denies current smoking, drinking, or other substance usage. - Physicial Exam PE: 03/22/19 17:48 Vitals: Triage Vital signs reviewed General Appearance: No acute distress, well nourished well developed, Cardiac: Regular rate and rhythym, no murmurs, no rubs, no gallops, Lungs: Coarse crackles at the bases bilaterally abdomen: Soft, non distended, normal bowel sounds, non tender to palpation Extremities: Full range of motion to all extremities, no cyanosis, clubbing, or edema Skin: Warm and dry, no rashes or lesions, no rash, no petechia Psych: Normal mood, normal affect - Medical Decision Making 03/22/19 17:48 68 years old with shortness of breath and dyspnea on exertion EKG demonstrates normal sinus rhythm no ST elevations no T wave inversions Laboratory analysis notable for elevated BNP and detectable troponin likely demand Chest x-ray demonstrates effusions We will observe overnight for diuresis for CHF exacerbation with demand ischemia
[2019-03-22] MEDS ORDERED: ACETAMINOPHEN 325 MG TABLET (FP) PO PRN (18:09)
--- NOTE | 2019-03-22 18:19 | HP ---
Admitting History and Physical - Primary Care Physician PCP: Rex Hillman - Admission Chief Complaint: sob History of Present Illness: pt seen/ examined in er. chart reviewed case also d/w er physician and resident The patient is a 68 year old male with a past medical history of HTN, ESRD(on HD T//Mon, now off dialysis for 2 weeks with Port-a-cath removed), IDDM, COPD , HLD, femoral stents (on aspirin/Plavix), R sided lung cancer s/p R lower lobectomy, and opioid dependence (on methadone for 30+ years) who presents to the ED with SOB since yesterday, worse today. The patient denies chest pain, headache and dizziness. Denies fever, chills, cough, nausea, vomiting, diarrhea and constipation. Denies dysuria, frequency, urgency and hematuria. chart is reviewed pt found in chf exac Will be kept in tele for observation. History Source: Patient, Medical Record Limitations to Obtaining History: No Limitations - Past Medical History Cardiovascular: Yes: CHF, HTN, Hyperlipdemia Pulmonary: Yes: COPD Gastrointestinal: Yes: GERD Hepatobiliary: Yes: Hepatitis C Heme/Onc: Yes: Cancer (Lung cancer) Endocrine: Yes: Diabetes Mellitus Additional Past Medical History: On Methadone - Smoking History Smoking history: Never smoked Have you smoked in the past 12 months: No - Alcohol/Substance Use Hx Alcohol Use: No History of Substance Use: reports: Cocaine, Heroin - Social History ADL: Independent History of Recent Travel: No Home Medications - Allergies Allergies/Adverse Reactions: Allergies Allergy/AdvReac Type Severity Reaction Status Date / Time No Known Allergies Allergy Verified 03/22/19 13:19 - Home Medications Home Medications: Ambulatory Orders Methadone [Dolophine -] 60 mg PO DAILY@0600 tablet MDD 1 10/18/18 Aspirin [Aspirin EC] 81 mg PO DAILY #30 tablet. 10/27/18 Atorvastatin Ca [Lipitor] 20 mg PO HS #30 tablet 10/27/18 Calcium Acetate [Phoslo -] 667 mg PO TIDCM #90 capsule 10/27/18 Cholecalciferol (Vitamin D3) [Dialyvite Vitamin D3 Max] 50,000 unit PO WEEKLY # 4 tablet 10/27/18 Clopidogrel Bisulfate [Plavix -] 75 mg PO DAILY #30 tablet 10/27/18 Isosorbide Mononitrate [Imdur -] 60 mg PO DAILY #30 tab.sr.24h 10/27/18 Labetalol HCl [Normodyne -] 300 mg PO BID #60 tablet 10/27/18 Nifedipine ER [Procardia XL -] 90 mg PO DAILY #30 tab.er.24 10/27/18 Insulin Glargine,Hum.rec.anlog [Lantus] 27 unit SQ HS 03/22/19 Omeprazole 40 mg PO DAILY 03/22/19 Torsemide [Demadex -] 100 mg PO DAILY 03/22/19 Review of Systems - Review of Systems Constitutional: reports: Weakness Eyes: reports: No Symptoms HENT: reports: No Symptoms Neck: reports: No Symptoms Cardiovascular: reports: Shortness of Breath Respiratory: reports: SOB Gastrointestinal: reports: No Symptoms Genitourinary: reports: No Symptoms Musculoskeletal: reports: No Symptoms Neurological: reports: No Symptoms Psychiatric: reports: No Symptoms Physical Examination Vital Signs: Vital Signs Temperature 97.6 F 03/22/19 13:19 Pulse Rate 78 03/22/19 14:56 Respiratory Rate 22 H 03/22/19 14:56 Blood Pressure 190/71 H 03/22/19 14:56 O2 Sat by Pulse Oximetry (%) 100 03/22/19 14:56 Constitutional: Yes: No Distress Eyes: Yes: Conjunctiva Clear Neck: Yes: Supple Cardiovascular: Yes: Regular Rate and Rhythm Respiratory: Yes: Rales Gastrointestinal: Yes: Soft Edema: LLE: 1+, RLE: 1+ Neurological: Yes: Alert Psychiatric: Yes: Alert Labs: CBC, BMP 03/22/19 14:10 03/22/19 14:10 Imaging - Results Chest X-ray: Report Reviewed EKG: Report Reviewed Problem List - Problems (1) CHF exacerbation Problems reviewed: Yes Code(s): I50.9 - HEART FAILURE, UNSPECIFIED Qualifiers: (2) CKD (chronic kidney disease) Problems reviewed: Yes Code(s): N18.9 - CHRONIC KIDNEY DISEASE, UNSPECIFIED (3) Elevated troponin I level Problems reviewed: Yes Code(s): R79.89 - OTHER SPECIFIED ABNORMAL FINDINGS OF BLOOD CHEMISTRY (4) Diastolic CHF Problems reviewed: Yes Code(s): I50.30 - UNSPECIFIED DIASTOLIC (CONGESTIVE) HEART FAILURE (5) History of lung cancer Problems reviewed: Yes Code(s): Z85.118 - PERSONAL HISTORY OF MALIGNANT NEOPLASM OF BRONCHUS AND LUNG (6) History of substance abuse Code(s): F19.11 - OTHER PSYCHOACTIVE SUBSTANCE ABUSE, IN REMISSION (7) Status post lung surgery Problems reviewed: Yes Code(s): Z98.890 - OTHER SPECIFIED POSTPROCEDURAL STATES (8) Diabetes Problems reviewed: Yes Code(s): E11.9 - TYPE 2 DIABETES MELLITUS WITHOUT COMPLICATIONS Qualifiers: Diabetes mellitus type: type 2 Chronic kidney disease stage: on chronic dialysis Assessment/Plan Monitor on tele i/v lasix Monitor labs daily weight low salt diet echo - 10/26 reviewed cardiology consult dvt prophylaxis will follow Further recommendations per clinical course
[2019-03-22] MEDS ORDERED: LABETALOL HCL 200 MG TABLET (FP) PO SCH (22:00)
[2019-03-22] MEDS ORDERED: LABETALOL HCL 100 MG TABLET (FP) ONE (22:42)
[2019-03-22] MEDS ORDERED: ATORVASTATIN CA 20 MG TABLET (FP) ONE (22:42)
[2019-03-22] MEDS: ATORVASTATIN CA 20 MG TABLET (FP) PO SCH (22:50)
[2019-03-22] MEDS: INSULIN (LEVEMIR) 100 UNITS/ML UNITS SQ SCH (22:50)
[2019-03-22] MEDS: LABETALOL HCL 100 MG, LABETALOL HCL 200 MG PO SCH (22:50)
[2019-03-23] MEDS ORDERED: FUROSEMIDE 40 MG/4 ML INJECTABLE VIAL ONE ×2 (06:35→15:07)
[2019-03-23 06:40] LABS: BASO % 0.9 % (0-2.0); EOS % 2.1 % (0-4.5); HEMATOCRIT 27.8 % (35.4-49); HEMOGLOBIN 9.2 GM/dL (11.7-16.9); LYMPH % 21.9 % (8-40); MCH 29.5 pg (25.7-33.7); MCHC 33.2 g/dl (32.0-35.9); MEAN CELL VOLUME 88.9 fl (80-96); MEAN PLT VOLUME 8.5 fl (7.5-11.1); MONO % 9.5 % (3.8-10.2); NEUT % 65.6 % (42.8-82.8); PLATELET COUNT 203 K/MM3 (134-434); RBC 3.12 M/mm3 (4.00-5.60); RDW 16.3 % (11.9-15.9); WHITE BLOOD COUNT 5.9 K/mm3 (4.0-10.0)
[2019-03-23] MEDS: FUROSEMIDE 40 MG/4 ML INJECTABLE VIAL IVPUSH SCH ×2 (06:45→15:12)
[2019-03-23] MEDS: INSULIN SLIDING SCALE (NOVOLOG) 1 VIAL SQ SCH ×2 (06:45→17:00)
[2019-03-23 06:58] LABS: CHOLESTEROL 140 mg/dL (50-200); HDL CHOLESTEROL 49 mg/dL (40-60); LDL CHOLESTEROL (ONLY SJRH) 67 mg/dL (5-100); TRIGLYCERIDES 97 mg/dL (0-150)
[2019-03-23 07:04] LABS: ALBUMIN 2.9 g/dl (3.4-5.0); BILIRUBIN,TOTAL 0.4 mg/dL (0.2-1); BLOOD UREA NITROGEN 71.4 mg/dL (7-18); CREATININE 2.5 mg/dL (0.55-1.3); POTASSIUM 3.6 mmol/L (3.5-5.1); TOT PROT 5.9 g/dl (6.4-8.2)
[2019-03-23] MEDS: ISOSORBIDE MONONITRATE 60 MG TAB.SR.24H (FP) PO SCH (10:04)
[2019-03-23] MEDS: ENOXAPARIN NA (PORCINE) 30 MG/0.3 ML DISP.SYRIN SQ SCH (10:04)
[2019-03-23] MEDS: PANTOPRAZOLE 40 MG TABLET (FP) PO SCH (10:04)
[2019-03-23] MEDS: CLOPIDOGREL BISULFATE 75 MG TABLET (FP) PO SCH (10:04)
[2019-03-23] MEDS: CALCIUM ACETATE 667 MG CAPSULE (FP) PO SCH ×3 (10:04→17:36)
[2019-03-23] MEDS: LABETALOL HCL 100 MG, LABETALOL HCL 200 MG PO SCH ×2 (10:04→21:45)
[2019-03-23] MEDS: ASPIRIN COATED 81 MG TABLET.EC PO SCH (10:04)
[2019-03-23] MEDS: NIFEdipine E.R. 90 MG TABLET (FP) PO SCH (10:04)
--- NOTE | 2019-03-23 10:15 | EKG ---
Test Reason : Blood Pressure : / mmHG Vent. Rate : 088 BPM Atrial Rate : 088 BPM P-R Int : 200 ms QRS Dur : 104 ms QT Int : 408 ms P-R-T Axes : 046 020 024 degrees QTc Int : 493 ms NORMAL SINUS RHYTHM PROLONGED QT ABNORMAL ECG WHEN COMPARED WITH ECG OF 01-JAN-2019 15:34, PREMATURE VENTRICULAR COMPLEXES ARE NO LONGER PRESENT ST NOW DEPRESSED IN INFERIOR LEADS Confirmed by TONIO GILBERT, CEE ([id number]) on 03/23/2019 10:15:33 AM Referred By: Confirmed By:CEE ELIZALDE MD
--- NOTE | 2019-03-23 11:11 | CON.CARD ---
Cardiology Consult (text) - Consultation Consultation Note: Chief Complaint: sob History of Present Illness: 68M h/o HTN, DM, HLD, PAD s/p femoral stent, prior smoker, R sided lung ca s/p partial resection, ESRD on HD here with sob. About 2 weeks ago he stopped HD because his renal fcn improved. Bascom fine until past few days when noticed sob , khalil, le edema, orthopnea. No cp palps dizzy loc pnd. - Alcohol/Substance Use Hx Alcohol Use: No - Smoking History Smoking history: Never smoked Home Medications - Allergies Allergies/Adverse Reactions: Allergies Allergy/AdvReac Type Severity Reaction Status Date / Time No Known Allergies Allergy Verified 03/23/19 06:16 Family Disease History - Family Disease History Family History: Unremarkable Review of Systems - Review of Systems Constitutional: reports: No Symptoms Eyes: reports: No Symptoms HENT: reports: No Symptoms Neck: reports: No Symptoms Cardiovascular: reports: Edema, Shortness of Breath Respiratory: reports: Cough Gastrointestinal: reports: No Symptoms Genitourinary: reports: No Symptoms Musculoskeletal: reports: No Symptoms Integumentary: reports: No Symptoms Neurological: reports: No Symptoms Endocrine: reports: No Symptoms Hematology/Lymphatic: reports: No Symptoms Psychiatric: reports: No Symptoms Vital Signs Period Temp Pulse Resp BP Sys/Bansal Pulse Ox Last 24 Hr 97.6 F-97.9 F 67-87 16-22 156-194/59-76 85-100 Constitutional: Yes: Well Nourished, No Distress, Calm Respiratory: Yes: bibasilar crackles, nl eff Gastrointestinal: Yes: Normal Bowel Sounds, Soft Cardiovascular: Yes: Regular Rate and Rhythm, nl s1 s2 JVD: No Extremities: No: Cold Edema: 1+ le edema bl Integumentary: No: Jaundice diaphoresis Neurological: Yes: Alert, Oriented Psychiatric: No: Agitated Laboratory Last Values WBC 5.9 K/mm3 (4.0-10.0) 03/23/19 05:48 RBC 3.12 M/mm3 (4.00-5.60) L 03/23/19 05:48 Hgb 9.2 GM/dL (11.7-16.9) L 03/23/19 05:48 Hct 27.8 % (35.4-49) L 03/23/19 05:48 MCV 88.9 fl (80-96) 03/23/19 05:48 MCH 29.5 pg (25.7-33.7) 03/23/19 05:48 MCHC 33.2 g/dl (32.0-35.9) 03/23/19 05:48 RDW 16.3 % (11.9-15.9) H 03/23/19 05:48 Plt Count 203 K/MM3 (134-434) 03/23/19 05:48 MPV 8.5 fl (7.5-11.1) 03/23/19 05:48 Absolute Neuts (auto) 3.9 K/mm3 (1.5-8.0) 03/23/19 05:48 Neutrophils % 65.6 % (42.8-82.8) D 03/23/19 05:48 Lymphocytes % 21.9 % (8-40) D 03/23/19 05:48 Monocytes % 9.5 % (3.8-10.2) D 03/23/19 05:48 Eosinophils % 2.1 % (0-4.5) D 03/23/19 05:48 Basophils % 0.9 % (0-2.0) 03/23/19 05:48 Nucleated RBC % 0 % (0-0) 03/23/19 05:48 Sodium 141 mmol/L (136-145) 03/23/19 05:48 Potassium 3.6 mmol/L (3.5-5.1) 03/23/19 05:48 Chloride 103 mmol/L (98-107) 03/23/19 05:48 Carbon Dioxide 29 mmol/L (21-32) 03/23/19 05:48 Anion Gap 9 MMOL/L (8-16) 03/23/19 05:48 BUN 71.4 mg/dL (7-18) H 03/23/19 05:48 Creatinine 2.5 mg/dL (0.55-1.3) H 03/23/19 05:48 Est GFR (CKD-EPI)AfAm 29.06 03/23/19 05:48 Est GFR (CKD-EPI)NonAf 25.07 03/23/19 05:48 POC Glucometer 135 UNITS (80-120) 03/23/19 06:43 Random Glucose 170 mg/dL (74-106) H 03/23/19 05:48 Hemoglobin A1c % 7.2 % (4.2-6.3) H 03/23/19 05:48 Calcium 8.0 mg/dL (8.5-10.1) L 03/23/19 05:48 Magnesium 2.0 mg/dL (1.8-2.4) 03/23/19 05:48 Total Bilirubin 0.4 mg/dL (0.2-1) 03/23/19 05:48 AST 13 U/L (15-37) L 03/23/19 05:48 ALT 18 U/L (13-61) 03/23/19 05:48 Alkaline Phosphatase 109 U/L (45-117) 03/23/19 05:48 Creatine Kinase 183 U/L (26-308) 03/22/19 14:10 Creatine Kinase Index 3.3 % (0.0-5.0) 03/22/19 14:10 CK-MB (CK-2) 6.1 ng/mL (0.5-3.6) H 03/22/19 14:10 Troponin I 0.52 ng/ml (0.00-0.05) H 03/23/19 05:48 B-Natriuretic Peptide 00730.4 pg/ml (5-125) H 03/22/19 14:10 Total Protein 5.9 g/dl (6.4-8.2) L 03/23/19 05:48 Albumin 2.9 g/dl (3.4-5.0) L 03/23/19 05:48 Triglycerides 97 mg/dL (0-150) 03/23/19 05:48 Cholesterol 140 mg/dL (50-200) 03/23/19 05:48 Total LDL Cholesterol 67 mg/dL (5-100) 03/23/19 05:48 HDL Cholesterol 49 mg/dL (40-60) 03/23/19 05:48 TSH 2.01 uIU/ml (0.358-3.74) D 03/23/19 05:48 Assessment/Plan mibi 2015 no ischemia, nl EF echo 09/2018 nl LV function, mild MAC, tr MR, RVSP 32 mmHg echo 10/2018 nl LV function, EF 55-60%, grade II diastolic dysfunction, RV nl, mild MR, mild AR, mod ao root dilatation CXR mod R pleural effusion stable since 10/2018 EKG: sinus,nl intervals no ischemic changes tele: sinus 68M h/o HTN, DM, HLD, PAD s/p femoral stent, prior smoker, R sided lung ca s/p partial resection, ESRD on HD here with sob. sob, acuter diastolic chf: -volume overload after recently stopping hd -cont iv lasix, pt reports improved sxs -daily chem7, wt -consider renal consult HTN - stable, cont current meds HLD - cont statin PAD - cont statin, plavix DM - manage per primary ESRD on HD - renal fcn improved and off hd past 2 weeks, manage per renal elevated trop: -borderline trop elevation, flat trend, nl ck, similar to prior baseline values , not c/w acs
[2019-03-23] MEDS ORDERED: METHADONE HCL 40 MG DISPERSABLE TABLET PO ONE (11:45)
--- NOTE | 2019-03-23 12:37 | PN ---
Progress Note (short form) - Note Progress Note: feeling better Pt examined in ER denies SOB denies chest pain Vital Signs - 24 hr 03/22/19 03/22/19 03/22/19 14:42 14:56 20:37 Temperature Pulse Rate 78 Pulse Rate [ 78 72 Right Radial] Respiratory 22 H 18 Rate Blood Pressure Blood Pressure 190/71 H 156/59 L [Left Arm] O2 Sat by Pulse 100 100 99 Oximetry (%) 03/23/19 08:00 Temperature 97.9 F Pulse Rate 67 Pulse Rate [ Right Radial] Respiratory 20 Rate Blood Pressure 194/76 H Blood Pressure [Left Arm] O2 Sat by Pulse Oximetry (%) Current Medications Generic Name Dose Route Start Last Admin Trade Name Freq PRN Reason Stop Dose Admin Acetaminophen 650 mg 03/22/19 18:09 Tylenol - PO Q4H PRN PAIN LEVEL 1-5 Aspirin 81 mg 03/23/19 10:00 03/23/19 10:04 Ecotrin - PO 81 mg DAILY GREGORY Administration Atorvastatin Calcium 20 mg 03/22/19 22:00 03/22/19 22:50 Lipitor - PO 20 mg HS GREGORY Administration Calcium Acetate 667 mg 03/23/19 08:00 03/23/19 12:49 Phoslo - PO 667 mg TIDCM GREGORY Administration Clopidogrel Bisulfate 75 mg 03/23/19 10:00 03/23/19 10:04 Plavix - PO 75 mg DAILY GREGORY Administration Enoxaparin Sodium 30 mg 03/23/19 10:00 03/23/19 10:04 Lovenox - SQ 30 mg DAILY GREGORY Administration Furosemide 40 mg 03/23/19 06:00 03/23/19 06:45 Lasix Injection - IVPUSH 40 mg BID@0600,1400 GREGORY Administration Insulin Aspart 1 vial 03/23/19 07:00 03/23/19 06:45 Novolog Vial Sliding Scale - SQ Not Given BIDAC [facility] Protocol Insulin Detemir 27 units 03/22/19 22:00 03/22/19 22:50 Levemir Vial SQ 20 unit HS GREGORY Administration Isosorbide Mononitrate 60 mg 03/23/19 10:00 03/23/19 10:04 Imdur - PO 60 mg DAILY GREGORY Administration Labetalol HCl 100 mg/ 300 mg 03/22/19 22:00 03/23/19 10:04 Labetalol HCl 200 mg PO 300 mg BID GREGORY Administration Methadone HCl 60 mg 03/23/19 06:00 Dolophine - PO DAILY@0600 GREGORY Nifedipine 90 mg 03/23/19 10:00 03/23/19 10:04 Procardia Xl - PO 90 mg DAILY GREGORY Administration Pantoprazole Sodium 40 mg 03/23/19 10:00 03/23/19 10:04 Protonix - PO 40 mg DAILY GREGORY Administration Laboratory Results - last 24 hr 03/22/19 03/22/19 03/22/19 14:10 14:10 14:10 WBC 10.2 H RBC 3.44 L Hgb 10.2 L Hct 30.7 L MCV 89.1 MCH 29.7 MCHC 33.3 RDW 16.4 H Plt Count 240 MPV 8.6 Absolute Neuts (auto) 8.9 H Neutrophils % 86.5 H Lymphocytes % 7.5 L Monocytes % 4.9 Eosinophils % 0.6 Basophils % 0.5 Nucleated RBC % 0 Sodium 136 Potassium 3.7 Chloride 104 Carbon Dioxide 29 Anion Gap 3 L BUN 70.4 H Creatinine 2.3 H Est GFR (CKD-EPI)AfAm 32.14 Est GFR (CKD-EPI)NonAf 27.73 POC Glucometer Random Glucose 275 H Hemoglobin A1c % Calcium 8.6 Magnesium Total Bilirubin 0.5 AST 17 ALT 25 Alkaline Phosphatase 130 H Creatine Kinase 183 Creatine Kinase Index 3.3 CK-MB (CK-2) 6.1 H Troponin I 0.06 H B-Natriuretic Peptide 71019.4 H Total Protein 6.5 Albumin 3.5 Triglycerides Cholesterol Total LDL Cholesterol HDL Cholesterol TSH 03/22/19 03/22/19 03/23/19 17:40 22:27 05:48 WBC 5.9 RBC 3.12 L Hgb 9.2 L Hct 27.8 L MCV 88.9 MCH 29.5 MCHC 33.2 RDW 16.3 H Plt Count 203 MPV 8.5 Absolute Neuts (auto) 3.9 Neutrophils % 65.6 D Lymphocytes % 21.9 D Monocytes % 9.5 D Eosinophils % 2.1 D Basophils % 0.9 Nucleated RBC % 0 Sodium Potassium Chloride Carbon Dioxide Anion Gap BUN Creatinine Est GFR (CKD-EPI)AfAm Est GFR (CKD-EPI)NonAf POC Glucometer 242 312 Random Glucose Hemoglobin A1c % Calcium Magnesium Total Bilirubin AST ALT Alkaline Phosphatase Creatine Kinase Creatine Kinase Index CK-MB (CK-2) Troponin I B-Natriuretic Peptide Total Protein Albumin Triglycerides Cholesterol Total LDL Cholesterol HDL Cholesterol TSH 03/23/19 03/23/19 03/23/19 05:48 05:48 05:48 WBC RBC Hgb Hct MCV MCH MCHC RDW Plt Count MPV Absolute Neuts (auto) Neutrophils % Lymphocytes % Monocytes % Eosinophils % Basophils % Nucleated RBC % Sodium 141 Potassium 3.6 Chloride 103 Carbon Dioxide 29 Anion Gap 9 BUN 71.4 H Creatinine 2.5 H Est GFR (CKD-EPI)AfAm 29.06 Est GFR (CKD-EPI)NonAf 25.07 POC Glucometer Random Glucose 170 H Hemoglobin A1c % 7.2 H Calcium 8.0 L Magnesium 2.0 Total Bilirubin 0.4 AST 13 L ALT 18 Alkaline Phosphatase 109 Creatine Kinase Creatine Kinase Index CK-MB (CK-2) Troponin I 0.52 H B-Natriuretic Peptide Total Protein 5.9 L Albumin 2.9 L Triglycerides 97 Cholesterol 140 Total LDL Cholesterol 67 HDL Cholesterol 49 TSH 2.01 D 03/23/19 06:43 WBC RBC Hgb Hct MCV MCH MCHC RDW Plt Count MPV Absolute Neuts (auto) Neutrophils % Lymphocytes % Monocytes % Eosinophils % Basophils % Nucleated RBC % Sodium Potassium Chloride Carbon Dioxide Anion Gap BUN Creatinine Est GFR (CKD-EPI)AfAm Est GFR (CKD-EPI)NonAf POC Glucometer 135 Random Glucose Hemoglobin A1c % Calcium Magnesium Total Bilirubin AST ALT Alkaline Phosphatase Creatine Kinase Creatine Kinase Index CK-MB (CK-2) Troponin I B-Natriuretic Peptide Total Protein Albumin Triglycerides Cholesterol Total LDL Cholesterol HDL Cholesterol TSH S1 S2 RRR Lungs decreased No ronchi Abd- soft, NT edema+ PLAN IV Lasix Monitor renal function Renal consult Continue with meds tele monitoring Problem List - Problems (1) CHF exacerbation Code(s): I50.9 - HEART FAILURE, UNSPECIFIED Qualifiers: (2) CKD (chronic kidney disease) Code(s): N18.9 - CHRONIC KIDNEY DISEASE, UNSPECIFIED (3) Chronic renal insufficiency, stage III (moderate) Code(s): N18.3 - CHRONIC KIDNEY DISEASE, STAGE 3 (MODERATE) (4) HLD (hyperlipidemia) Code(s): E78.5 - HYPERLIPIDEMIA, UNSPECIFIED (5) HTN (hypertension) Code(s): I10 - ESSENTIAL (PRIMARY) HYPERTENSION
--- NOTE | 2019-03-23 16:43 | CONSULT ---
Consult Consult Specialty:: Nephrology Reason for Consultation:: CKD - History of Present Illness Chief Complaint: edema and shortness of breath History of Present Illness: Coverage for Dr Iniguez Pt is a 68 year old male with pmhx of htn, bret requiring HD, DM, COPD, HLD, PVD with femoral stents, methadone dependence and lung cancer who presents to the ER with edema and shortness of breath. He was recently taken off of HD as he had renal recovery. He was started on diuretics. He says that he was not compliant with fluid and salt restriciton. He felt that his breathing improved wiht the lasix. He denies fevers or chills. - History Source History Provided By: Patient, Medical Record - Past Medical History Cardio/Vascular: Yes: CHF, HTN, Hyperlipdemia Pulmonary: Yes: COPD Gastrointestinal: Yes: GERD Hepatobiliary: Yes: Hepatitis C Renal/: Yes: Renal Failure, Renal Inusuff, Hemodialysis Endocrine: Yes: Diabetes Mellitus - Alcohol/Substance Use Hx Alcohol Use: Yes (Occassionally) History of Substance Use: reports: Cocaine, Heroin - Smoking History Smoking history: Former smoker Have you smoked in the past 12 months: No If you are a former smoker, when did you quit?: quit 15 yrs ago - Social History Usual Living Arrangement: With Spouse ADL: Independent History of Recent Travel: No Home Medications - Allergies Allergies/Adverse Reactions: Allergies Allergy/AdvReac Type Severity Reaction Status Date / Time No Known Allergies Allergy Verified 03/23/19 06:16 - Home Medications Home Medications: Ambulatory Orders Methadone [Dolophine -] 60 mg PO DAILY@0600 tablet MDD 1 10/18/18 Aspirin [Aspirin EC] 81 mg PO DAILY #30 tablet. 10/27/18 Atorvastatin Ca [Lipitor] 20 mg PO HS #30 tablet 10/27/18 Calcium Acetate [Phoslo -] 667 mg PO TIDCM #90 capsule 10/27/18 Cholecalciferol (Vitamin D3) [Dialyvite Vitamin D3 Max] 50,000 unit PO WEEKLY # 4 tablet 10/27/18 Clopidogrel Bisulfate [Plavix -] 75 mg PO DAILY #30 tablet 10/27/18 Isosorbide Mononitrate [Imdur -] 60 mg PO DAILY #30 tab.sr.24h 10/27/18 Labetalol HCl [Normodyne -] 300 mg PO BID #60 tablet 10/27/18 Nifedipine ER [Procardia XL -] 90 mg PO DAILY #30 tab.er.24 10/27/18 Insulin Glargine,Hum.rec.anlog [Lantus] 27 unit SQ HS 03/22/19 Omeprazole 40 mg PO DAILY 03/22/19 Torsemide [Demadex -] 100 mg PO DAILY 03/22/19 Family Medical History Family History: Denies Review of Systems - Review of Systems Constitutional: reports: Malaise Eyes: reports: No Symptoms HENT: reports: No Symptoms Neck: reports: No Symptoms Cardiovascular: reports: Edema, Shortness of Breath Respiratory: reports: No Symptoms Gastrointestinal: reports: No Symptoms Genitourinary: reports: No Symptoms Musculoskeletal: reports: No Symptoms Integumentary: reports: No Symptoms Endocrine: reports: No Symptoms Psychiatric: reports: No Symptoms Physical Exam Vital Signs: Vital Signs Temperature 98.2 F 03/23/19 15:37 Pulse Rate 67 03/23/19 08:00 Respiratory Rate 18 03/23/19 15:37 Blood Pressure 163/65 03/23/19 15:37 O2 Sat by Pulse Oximetry (%) 95 03/23/19 16:01 Constitutional: Yes: Well Nourished Cardiovascular: Yes: S1, S2 Respiratory: Yes: On Nasal O2, Rhonchi Gastrointestinal: Yes: Soft Renal/: Yes: WNL Musculoskeletal: Yes: WNL Edema: Yes Edema: LLE: 2+, RLE: 2+ Neurological: Yes: Oriented Psychiatric: Yes: Oriented Labs: CBC, BMP 03/23/19 05:48 03/23/19 05:48 Imaging - Results Chest X-ray: Report Reviewed (congestion) Problem List - Problems (1) CHF exacerbation Code(s): I50.9 - HEART FAILURE, UNSPECIFIED Qualifiers: (2) CKD (chronic kidney disease) Code(s): N18.9 - CHRONIC KIDNEY DISEASE, UNSPECIFIED (3) COPD (chronic obstructive pulmonary disease) Code(s): J44.9 - CHRONIC OBSTRUCTIVE PULMONARY DISEASE, UNSPECIFIED Assessment/Plan Current Medications Generic Name Dose Route Start Last Admin Trade Name Freq PRN Reason Stop Dose Admin Acetaminophen 650 mg 03/22/19 18:09 Tylenol - PO Q4H PRN PAIN LEVEL 1-5 Aspirin 81 mg 03/23/19 10:00 03/23/19 10:04 Ecotrin - PO 81 mg DAILY GREGORY Administration Atorvastatin Calcium 20 mg 03/22/19 22:00 03/22/19 22:50 Lipitor - PO 20 mg HS GREGORY Administration Calcium Acetate 667 mg 03/23/19 08:00 03/23/19 12:49 Phoslo - PO 667 mg TIDCM GREGORY Administration Clopidogrel Bisulfate 75 mg 03/23/19 10:00 03/23/19 10:04 Plavix - PO 75 mg DAILY GREGORY Administration Enoxaparin Sodium 30 mg 03/23/19 10:00 03/23/19 10:04 Lovenox - SQ 30 mg DAILY GREGORY Administration Furosemide 40 mg 03/23/19 06:00 03/23/19 15:12 Lasix Injection - IVPUSH 40 mg BID@0600,1400 GREGORY Administration Insulin Aspart 1 vial 03/23/19 07:00 03/23/19 06:45 Novolog Vial Sliding Scale - SQ Not Given BIDAC [facility] Protocol Insulin Detemir 27 units 03/22/19 22:00 03/22/19 22:50 Levemir Vial SQ 20 unit HS GREGORY Administration Isosorbide Mononitrate 60 mg 03/23/19 10:00 03/23/19 10:04 Imdur - PO 60 mg DAILY GREGORY Administration Labetalol HCl 100 mg/ 300 mg 03/22/19 22:00 03/23/19 10:04 Labetalol HCl 200 mg PO 300 mg BID GREGORY Administration Methadone HCl 60 mg 03/23/19 06:00 Dolophine - PO DAILY@0600 GREGORY Nifedipine 90 mg 03/23/19 10:00 03/23/19 10:04 Procardia Xl - PO 90 mg DAILY GREGORY Administration Pantoprazole Sodium 40 mg 03/23/19 10:00 03/23/19 10:04 Protonix - PO 40 mg DAILY GREGORY Administration Impression 1. CKD - pt has hx of BRET and was on HD 2. fluid overload 3. HTN 4. DM 5. opioid dependence 6. HLD 7. lung cancer 8. PVD Plan - cont lasix 40 iv bid - monitor renal function - monitor bp - resume home meds - check phos level in am
[2019-03-23] MEDS ORDERED: LABETALOL HCL 100 MG TABLET (FP) ONE (21:41)
[2019-03-23] MEDS ORDERED: LABETALOL HCL 200 MG TABLET (FP) ONE (21:41)
[2019-03-23] MEDS: ATORVASTATIN CA 20 MG TABLET (FP) PO SCH (21:45)
[2019-03-23] MEDS: INSULIN (LEVEMIR) 100 UNITS/ML UNITS SQ SCH (21:45)
[2019-03-24] MEDS ORDERED: DEXTROSE 50%-WATER - 25 GM/50 ML VIAL IVPUSH ONE (05:57)
[2019-03-24] MEDS ORDERED: DEXTROSE 50%-WATER 25 GM/50 ML DISP.SYRIN ONE (06:04)
[2019-03-24] MEDS: FUROSEMIDE 40 MG/4 ML INJECTABLE VIAL IVPUSH SCH ×2 (06:18→13:58)
[2019-03-24] MEDS: INSULIN SLIDING SCALE (NOVOLOG) 1 VIAL SQ SCH ×2 (06:19→16:39)
[2019-03-24 07:23] LABS: ALBUMIN 3.3 g/dl (3.4-5.0); BILIRUBIN,TOTAL 0.3 mg/dL (0.2-1); CALCIUM 8.5 mg/dL (8.5-10.1); CREATININE 2.8 mg/dL (0.55-1.3); PHOSPHOROUS 4.6 mg/dL (2.5-4.9); POTASSIUM 3.4 mmol/L (3.5-5.1); TOT PROT 6.4 g/dl (6.4-8.2)
[2019-03-24] MEDS: CALCIUM ACETATE 667 MG CAPSULE (FP) PO SCH ×3 (08:54→16:41)
--- NOTE | 2019-03-24 10:04 | PN ---
Progress Note (short form) - Note Progress Note: s: no cp palps dizzy; sob better Current Medications Generic Name Dose Route Start Last Admin Trade Name Freq PRN Reason Stop Dose Admin Acetaminophen 650 mg 03/22/19 18:09 Tylenol - PO Q4H PRN PAIN LEVEL 1-5 Aspirin 81 mg 03/23/19 10:00 03/23/19 10:04 Ecotrin - PO 81 mg DAILY [facility] Administration Atorvastatin Calcium 20 mg 03/22/19 22:00 03/23/19 21:45 Lipitor - PO 20 mg HS [facility] Administration Calcium Acetate 667 mg 03/23/19 08:00 03/24/19 08:54 Phoslo - PO 667 mg TIDCM [facility] Administration Clopidogrel Bisulfate 75 mg 03/23/19 10:00 03/23/19 10:04 Plavix - PO 75 mg DAILY [facility] Administration Enoxaparin Sodium 30 mg 03/23/19 10:00 03/23/19 10:04 Lovenox - SQ 30 mg DAILY [facility] Administration Furosemide 40 mg 03/23/19 06:00 03/24/19 06:18 Lasix Injection - IVPUSH 40 mg BID@0600,1400 [facility] Administration Insulin Aspart 1 vial 03/23/19 07:00 03/24/19 06:19 Novolog Vial Sliding Scale - SQ Not Given BIDAC [facility] Protocol Insulin Detemir 27 units 03/22/19 22:00 03/23/19 21:45 Levemir Vial SQ 20 unit HS [facility] Administration Isosorbide Mononitrate 60 mg 03/23/19 10:00 03/23/19 10:04 Imdur - PO 60 mg DAILY [facility] Administration Labetalol HCl 100 mg/ 300 mg 03/22/19 22:00 03/23/19 21:45 Labetalol HCl 200 mg PO 300 mg BID [facility] Administration Methadone HCl 60 mg 03/23/19 06:00 Dolophine - PO DAILY@0600 [facility] Nifedipine 90 mg 03/23/19 10:00 03/23/19 10:04 Procardia Xl - PO 90 mg DAILY [facility] Administration Pantoprazole Sodium 40 mg 03/23/19 10:00 03/23/19 10:04 Protonix - PO 40 mg DAILY [facility] Administration Vital Signs Period Temp Pulse Resp BP Sys/Bansal Pulse Ox Last 24 Hr 98.0 F-98.8 F 63-73 16-18 140-175/59-71 95-95 Constitutional: Yes: Well Nourished, No Distress, Calm Respiratory: Yes: bibasilar crackles, nl eff Gastrointestinal: Yes: Normal Bowel Sounds, Soft Cardiovascular: Yes: Regular Rate and Rhythm, nl s1 s2 JVD: No Extremities: No: Cold Edema: trace le edema bl Integumentary: No: Jaundice diaphoresis Neurological: Yes: Alert, Oriented Psychiatric: No: Agitated CBC, BMP 03/23/19 05:48 03/24/19 05:55 Assessment/Plan mibi 2015 no ischemia, nl EF echo 09/2018 nl LV function, mild MAC, tr MR, RVSP 32 mmHg echo 10/2018 nl LV function, EF 55-60%, grade II diastolic dysfunction, RV nl, mild MR, mild AR, mod ao root dilatation CXR mod R pleural effusion stable since 10/2018 EKG: sinus,nl intervals no ischemic changes tele: sinus, occ pvcs 68M h/o HTN, DM, HLD, PAD s/p femoral stent, prior smoker, R sided lung ca s/p partial resection, ESRD on HD here with sob. sob, acuter diastolic chf: -volume overload after recently stopping hd -cont iv lasix, pt reports improved sxs, likely can change to po diuretic tomorrow -daily chem7, wt -renal following as well HTN - stable, cont current meds HLD - cont statin PAD - cont statin, plavix DM - manage per primary ESRD on HD - renal fcn improved and off hd past 2 weeks, manage per renal elevated trop: -borderline trop elevation, flat trend, nl ck, similar to prior baseline values , not c/w acs
[2019-03-24] MEDS ORDERED: METHADONE HCL 10 MG TABLET PO ONE (10:31)
--- NOTE | 2019-03-24 10:37 | PN ---
Progress Note (short form) - Note Progress Note: no complaints no distress Vital Signs - 24 hr 03/23/19 03/23/19 03/23/19 15:37 16:01 18:18 Temperature 98.2 F Pulse Rate Respiratory 18 18 Rate Blood Pressure 163/65 O2 Sat by Pulse 95 95 Oximetry (%) 03/23/19 03/24/19 03/24/19 20:00 01:56 02:00 Temperature 98.1 F 98.3 F Pulse Rate 67 63 Respiratory 16 16 16 Rate Blood Pressure 143/59 L 140/59 L O2 Sat by Pulse 95 Oximetry (%) 03/24/19 03/24/19 06:14 08:58 Temperature 98.0 F 98.8 F Pulse Rate 71 73 Respiratory 18 18 Rate Blood Pressure 151/66 175/71 H O2 Sat by Pulse Oximetry (%) Current Medications Generic Name Dose Route Start Last Admin Trade Name Freq PRN Reason Stop Dose Admin Acetaminophen 650 mg 03/22/19 18:09 Tylenol - PO Q4H PRN PAIN LEVEL 1-5 Aspirin 81 mg 03/23/19 10:00 03/23/19 10:04 Ecotrin - PO 81 mg DAILY [facility] Administration Atorvastatin Calcium 20 mg 03/22/19 22:00 03/23/19 21:45 Lipitor - PO 20 mg HS [facility] Administration Calcium Acetate 667 mg 03/23/19 08:00 03/24/19 08:54 Phoslo - PO 667 mg TIDCM [facility] Administration Clopidogrel Bisulfate 75 mg 03/23/19 10:00 03/23/19 10:04 Plavix - PO 75 mg DAILY [facility] Administration Enoxaparin Sodium 30 mg 03/23/19 10:00 03/23/19 10:04 Lovenox - SQ 30 mg DAILY [facility] Administration Furosemide 40 mg 03/23/19 06:00 03/24/19 06:18 Lasix Injection - IVPUSH 40 mg BID@0600,1400 [facility] Administration Insulin Aspart 1 vial 03/23/19 07:00 03/24/19 06:19 Novolog Vial Sliding Scale - SQ Not Given BIDAC [facility] Protocol Insulin Detemir 27 units 03/22/19 22:00 03/23/19 21:45 Levemir Vial SQ 20 unit HS [facility] Administration Isosorbide Mononitrate 60 mg 03/23/19 10:00 03/23/19 10:04 Imdur - PO 60 mg DAILY [facility] Administration Labetalol HCl 100 mg/ 300 mg 03/22/19 22:00 03/23/19 21:45 Labetalol HCl 200 mg PO 300 mg BID [facility] Administration Methadone HCl 60 mg 03/23/19 06:00 Dolophine - PO DAILY@0600 [facility] Methadone HCl 40 mg/ Methadone 60 mg 03/24/19 10:45 HCl 20 mg PO 03/24/19 10:46 ONCE ONE Nifedipine 90 mg 03/23/19 10:00 03/23/19 10:04 Procardia Xl - PO 90 mg DAILY [facility] Administration Pantoprazole Sodium 40 mg 03/23/19 10:00 03/23/19 10:04 Protonix - PO 40 mg DAILY [facility] Administration Potassium Chloride 40 meq 03/24/19 10:45 K-Dur - PO 03/24/19 10:46 ONCE ONE Laboratory Results - last 24 hr 03/23/19 03/23/19 03/24/19 16:54 20:49 05:51 Sodium Potassium Chloride Carbon Dioxide Anion Gap BUN Creatinine Est GFR (CKD-EPI)AfAm Est GFR (CKD-EPI)NonAf POC Glucometer 170 190 42 Random Glucose Calcium Phosphorus Total Bilirubin AST ALT Alkaline Phosphatase Total Protein Albumin 03/24/19 03/24/19 05:55 06:56 Sodium 143 Potassium 3.4 L Chloride 104 Carbon Dioxide 30 Anion Gap 9 BUN 75.0 H Creatinine 2.8 H Est GFR (CKD-EPI)AfAm 25.34 Est GFR (CKD-EPI)NonAf 21.86 POC Glucometer 124 Random Glucose 42 L* Calcium 8.5 Phosphorus 4.6 Total Bilirubin 0.3 AST 15 ALT 22 Alkaline Phosphatase 116 Total Protein 6.4 Albumin 3.3 L S1 S2 RRR Lungs decreased Abd-soft, NT edema trace PLAN on Lasix Cardiology follow up noted change to po lasix in am clinically better monitor renal function
[2019-03-24] MEDS ORDERED: INSULIN (LEVEMIR) 100 UNITS/ML UNITS SQ SCH (10:39)
[2019-03-24] MEDS ORDERED: LABETALOL HCL 200 MG TABLET (FP) ONE ×2 (10:44→21:28)
[2019-03-24] MEDS ORDERED: LABETALOL HCL 100 MG TABLET (FP) ONE ×2 (10:44→21:28)
[2019-03-24] MEDS ORDERED: METHADONE 40 MG, METHADONE 20 MG PO ONE (10:45)
[2019-03-24] MEDS ORDERED: POTASSIUM CHLORIDE TABS 20 MEQ TABLET.ER (FP) PO ONE (10:45)
[2019-03-24] MEDS ORDERED: METHADONE HCL 40 MG DISPERSABLE TABLET ONE (10:46)
[2019-03-24] MEDS ORDERED: METHADONE HCL 10 MG TABLET ONE (10:46)
[2019-03-24] MEDS: ENOXAPARIN NA (PORCINE) 30 MG/0.3 ML DISP.SYRIN SQ SCH (10:53)
[2019-03-24] MEDS: NIFEdipine E.R. 90 MG TABLET (FP) PO SCH (10:55)
[2019-03-24] MEDS: PANTOPRAZOLE 40 MG TABLET (FP) PO SCH (10:55)
[2019-03-24] MEDS: LABETALOL HCL 100 MG, LABETALOL HCL 200 MG PO SCH ×2 (10:55→22:04)
[2019-03-24] MEDS: CLOPIDOGREL BISULFATE 75 MG TABLET (FP) PO SCH (10:55)
[2019-03-24] MEDS: ASPIRIN COATED 81 MG TABLET.EC PO SCH (10:55)
[2019-03-24] MEDS: ISOSORBIDE MONONITRATE 60 MG TAB.SR.24H (FP) PO SCH (10:56)
--- NOTE | 2019-03-24 18:29 | PN ---
Progress Note, Physician History of Present Illness: Pt seen and examined at bedside. He feels that his breathing is improved. He fees that edema is improving. - Current Medication List Current Medications: Active Medications Acetaminophen (Tylenol -) 650 mg PO Q4H PRN PRN Reason: PAIN LEVEL 1-5 Aspirin (Ecotrin -) 81 mg PO DAILY [facility] Last Admin: 03/24/19 10:55 Dose: 81 mg Atorvastatin Calcium (Lipitor -) 20 mg PO HS [facility] Last Admin: 03/23/19 21:45 Dose: 20 mg Calcium Acetate (Phoslo -) 667 mg PO TIDCM [facility] Last Admin: 03/24/19 16:41 Dose: 667 mg Clopidogrel Bisulfate (Plavix -) 75 mg PO DAILY [facility] Last Admin: 03/24/19 10:55 Dose: 75 mg Enoxaparin Sodium (Lovenox -) 30 mg SQ DAILY [facility] Last Admin: 03/24/19 10:53 Dose: 30 mg Furosemide (Lasix Injection -) 40 mg IVPUSH BID@0600,1400 [facility] Last Admin: 03/24/19 13:58 Dose: 40 mg Insulin Aspart ([facility] Vial Sliding Scale -) [facility] Protocol Last Admin: 03/24/19 16:39 Dose: 2 units Insulin Detemir (Levemir Vial) 24 units SQ [facility] Isosorbide Mononitrate (Imdur -) 60 mg PO DAILY [facility] Last Admin: 03/24/19 10:56 Dose: 60 mg Labetalol HCl 100 mg/ (Labetalol HCl 200 mg) 300 mg PO BID [facility] Last Admin: 03/24/19 10:55 Dose: 300 mg Methadone HCl (Dolophine -) 60 mg PO DAILY@0600 [facility] Nifedipine (Procardia Xl -) 90 mg PO DAILY [facility] Last Admin: 03/24/19 10:55 Dose: 90 mg Pantoprazole Sodium (Protonix -) 40 mg PO DAILY [facility] Last Admin: 03/24/19 10:55 Dose: 40 mg - Objective Vital Signs: Vital Signs Temperature 98.0 F 03/24/19 17:59 Pulse Rate 66 03/24/19 17:59 Respiratory Rate 18 03/24/19 17:59 Blood Pressure 144/64 03/24/19 17:59 O2 Sat by Pulse Oximetry (%) 95 03/24/19 10:00 Constitutional: Yes: Calm Eyes: Yes: Conjunctiva Clear HENT: Yes: Atraumatic Neck: Yes: Supple Cardiovascular: Yes: S1, S2 Respiratory: Yes: CTA Bilaterally Gastrointestinal: Yes: Normal Bowel Sounds, Soft Genitourinary: Yes: WNL Musculoskeletal: Yes: WNL Edema: Yes Edema: LLE: 1+, RLE: 1+ Neurological: Yes: Oriented Psychiatric: Yes: Oriented Labs: CBC, BMP 03/23/19 05:48 03/24/19 05:55 Problem List - Problems (1) CHF exacerbation Code(s): I50.9 - HEART FAILURE, UNSPECIFIED Qualifiers: (2) CKD (chronic kidney disease) Code(s): N18.9 - CHRONIC KIDNEY DISEASE, UNSPECIFIED (3) COPD (chronic obstructive pulmonary disease) Code(s): J44.9 - CHRONIC OBSTRUCTIVE PULMONARY DISEASE, UNSPECIFIED Assessment/Plan Current Medications Generic Name Dose Route Start Last Admin Trade Name Freq PRN Reason Stop Dose Admin Acetaminophen 650 mg 03/22/19 18:09 Tylenol - PO Q4H PRN PAIN LEVEL 1-5 Aspirin 81 mg 03/23/19 10:00 03/24/19 10:55 Ecotrin - PO 81 mg DAILY [facility] Administration Atorvastatin Calcium 20 mg 03/22/19 22:00 03/23/19 21:45 Lipitor - PO 20 mg HS [facility] Administration Calcium Acetate 667 mg 03/23/19 08:00 03/24/19 16:41 Phoslo - PO 667 mg TIDCM [facility] Administration Clopidogrel Bisulfate 75 mg 03/23/19 10:00 03/24/19 10:55 Plavix - PO 75 mg DAILY [facility] Administration Enoxaparin Sodium 30 mg 03/23/19 10:00 03/24/19 10:53 Lovenox - SQ 30 mg DAILY [facility] Administration Furosemide 40 mg 03/23/19 06:00 03/24/19 13:58 Lasix Injection - IVPUSH 40 mg BID@0600,1400 [facility] Administration Insulin Aspart 1 vial 03/23/19 07:00 03/24/19 16:39 Novolog Vial Sliding Scale - SQ 2 units BIDAC [facility] Administration Protocol Insulin Detemir 24 units 03/24/19 10:39 Levemir Vial SQ HS [facility] Isosorbide Mononitrate 60 mg 03/23/19 10:00 03/24/19 10:56 Imdur - PO 60 mg DAILY [facility] Administration Labetalol HCl 100 mg/ 300 mg 03/22/19 22:00 03/24/19 10:55 Labetalol HCl 200 mg PO 300 mg BID [facility] Administration Methadone HCl 60 mg 03/23/19 06:00 Dolophine - PO DAILY@0600 [facility] Nifedipine 90 mg 03/23/19 10:00 03/24/19 10:55 Procardia Xl - PO 90 mg DAILY [facility] Administration Pantoprazole Sodium 40 mg 03/23/19 10:00 03/24/19 10:55 Protonix - PO 40 mg DAILY [facility] Administration Laboratory Tests 03/24/19 05:55 Potassium 3.4 L Creatinine 2.8 H Calcium 8.5 Phosphorus 4.6 Impression 1. CKD - pt has hx of BRET and was on HD 2. fluid overload 3. HTN 4. DM 5. opioid dependence 6. HLD 7. lung cancer 8. PVD Plan - monitor renal function - cont with lasix - replace potassium for now - phos level normal - bp stable
[2019-03-24] MEDS: ATORVASTATIN CA 20 MG TABLET (FP) PO SCH (22:05)
[2019-03-25] MEDS: INSULIN SLIDING SCALE (NOVOLOG) 1 VIAL SQ SCH ×2 (06:11→17:16)
[2019-03-25] MEDS: FUROSEMIDE 40 MG/4 ML INJECTABLE VIAL IVPUSH SCH ×2 (06:11→13:46)
[2019-03-25] MEDS ORDERED: INSULIN SLIDING SCALE (NOVOLOG) 1 VIAL SQ ONE (06:34)
[2019-03-25] MEDS: CALCIUM ACETATE 667 MG CAPSULE (FP) PO SCH ×3 (08:38→17:16)
--- NOTE | 2019-03-25 09:36 | PN ---
Progress Note, Physician Chief Complaint: sob History of Present Illness: sob much better, walked only a little in halls leg swelling improving, not resolved no cp, palpit - Current Medication List Current Medications: Active Medications Acetaminophen (Tylenol -) 650 mg PO Q4H PRN PRN Reason: PAIN LEVEL 1-5 Aspirin (Ecotrin -) 81 mg PO DAILY [facility] Last Admin: 03/24/19 10:55 Dose: 81 mg Atorvastatin Calcium (Lipitor -) 20 mg PO HS [facility] Last Admin: 03/24/19 22:05 Dose: 20 mg Calcium Acetate (Phoslo -) 667 mg PO TIDCM [facility] Last Admin: 03/25/19 08:38 Dose: 667 mg Clopidogrel Bisulfate (Plavix -) 75 mg PO DAILY [facility] Last Admin: 03/24/19 10:55 Dose: 75 mg Enoxaparin Sodium (Lovenox -) 30 mg SQ DAILY [facility] Last Admin: 03/24/19 10:53 Dose: 30 mg Furosemide (Lasix Injection -) 40 mg IVPUSH BID@0600,1400 [facility] Last Admin: 03/25/19 06:11 Dose: 40 mg Insulin Aspart (Novolog Vial Sliding Scale -) [facility] Protocol Last Admin: 03/25/19 06:11 Dose: Not Given Insulin Detemir (Levemir Vial) 24 units SQ [facility] Last Admin: 03/24/19 22:05 Dose: Not Given Isosorbide Mononitrate (Imdur -) 60 mg PO DAILY [facility] Last Admin: 03/24/19 10:56 Dose: 60 mg Labetalol HCl 100 mg/ (Labetalol HCl 200 mg) 300 mg PO BID [facility] Last Admin: 03/24/19 22:04 Dose: 300 mg Methadone HCl (Dolophine -) 60 mg PO DAILY@0600 [facility] Nifedipine (Procardia Xl -) 90 mg PO DAILY [facility] Last Admin: 03/24/19 10:55 Dose: 90 mg Pantoprazole Sodium (Protonix -) 40 mg PO DAILY [facility] Last Admin: 03/24/19 10:55 Dose: 40 mg - Objective Vital Signs: Vital Signs Temperature 98.8 F 03/25/19 08:45 Pulse Rate 64 03/25/19 08:45 Respiratory Rate 18 03/25/19 08:45 Blood Pressure 147/75 03/25/19 08:45 O2 Sat by Pulse Oximetry (%) 95 03/24/19 21:00 Constitutional: Yes: Well Nourished, No Distress, Calm Cardiovascular: Yes: Regular Rate and Rhythm, JVD (10 cm), S1, S2. No: Gallop, Murmur Respiratory: Yes: Regular, CTA Bilaterally, Diminished (R base). No: Accessory Muscle Use, Rales, Wheezes Extremities: No: Cold Edema: Yes (1-2+ pretib) Neurological: Yes: Alert, Oriented Psychiatric: No: Agitated Labs: CBC, BMP 03/23/19 05:48 03/24/19 05:55 Assessment/Plan mibi 2015 no ischemia, nl EF Echo 10/2018 nl LV function, EF 55-60%, grade II diastolic dysfunction, RV nl, mild MR, mild AR, mod ao root dilatation CXR mod R pleural effusion stable since 10/2018 EKG: sinus,nl intervals no ischemic changes tele: SR, artifact 68M h/o HTN, DM, HLD, PAD s/p femoral stent, prior smoker, R sided lung ca s/p partial resection, ESRD on HD here with sob. acute diastolic chf: -volume overload after recently stopping hd -receiving lasix 40 iv bid. wt has not improved here, renal fxn a bit worse yesterday. today with ongoing signs of volume excess, though sx's improving. increase lasix to 80 iv bid. -today's labs pending -renal following as well HTN - not well controlled - incr labetalol 300 to 400 bid, cont other meds same HLD - cont statin PAD - cont statin, plavix DM - manage per primary CKD - had been on HD, then stopped recently as renal fcn improved - per renal team elevated trop: -borderline trop elevation, flat trend, nl ck, similar to prior baseline values , not c/w acs
[2019-03-25] MEDS ORDERED: METHADONE HCL 40 MG DISPERSABLE TABLET ONE (10:24)
[2019-03-25] MEDS ORDERED: METHADONE HCL 10 MG TABLET ONE (10:24)
[2019-03-25] MEDS: ENOXAPARIN NA (PORCINE) 30 MG/0.3 ML DISP.SYRIN SQ SCH (10:31)
[2019-03-25] MEDS: METHADONE 40 MG, METHADONE 20 MG PO SCH (10:32)
[2019-03-25] MEDS: PANTOPRAZOLE 40 MG TABLET (FP) PO SCH (10:33)
[2019-03-25] MEDS: CLOPIDOGREL BISULFATE 75 MG TABLET (FP) PO SCH (10:33)
[2019-03-25] MEDS: ISOSORBIDE MONONITRATE 60 MG TAB.SR.24H (FP) PO SCH (10:33)
--- NOTE | 2019-03-25 10:33 | PN ---
Progress Note (short form) - Note Progress Note: Pt seen/ examined chart is reviewed feels better cardiology f/u noted BP elevated-- Meds being adjusted Vital Signs Temp 98.8 F 03/25/19 08:45 Pulse 64 03/25/19 08:45 Resp 18 03/25/19 08:45 BP 147/75 03/25/19 08:45 Pulse Ox 95 03/24/19 21:00 Intake & Output 03/24/19 03/24/19 03/25/19 11:59 23:59 11:59 Intake Total 100 360 250 Balance 100 360 250 Weight 170 lb 8 oz 171 lb Intake: Oral 100 360 250 Other: Voiding Method Toilet Toilet # Unmeasured Voids Void 2 2 3 Bowel Movement No Weight Measurement Method Standing Scale Standing Scale Active Medications Acetaminophen (Tylenol -) 650 mg PO Q4H PRN PRN Reason: PAIN LEVEL 1-5 Aspirin (Ecotrin -) 81 mg PO DAILY [facility] Last Admin: 03/24/19 10:55 Dose: 81 mg Atorvastatin Calcium (Lipitor -) 20 mg PO [facility] Last Admin: 03/24/19 22:05 Dose: 20 mg Calcium Acetate (Phoslo -) 667 mg PO TIDCM [facility] Last Admin: 03/25/19 08:38 Dose: 667 mg Clopidogrel Bisulfate (Plavix -) 75 mg PO DAILY [facility] Last Admin: 03/24/19 10:55 Dose: 75 mg Enoxaparin Sodium (Lovenox -) 30 mg SQ DAILY [facility] Last Admin: 03/24/19 10:53 Dose: 30 mg Furosemide (Lasix Injection -) 40 mg IVPUSH BID@0600,1400 [facility] Last Admin: 03/25/19 06:11 Dose: 40 mg Insulin Aspart (Novolog Vial Sliding Scale -) [facility]; Protocol Last Admin: 03/25/19 06:11 Dose: Not Given Insulin Detemir (Levemir Vial) 24 units SQ [facility] Last Admin: 03/24/19 22:05 Dose: Not Given Isosorbide Mononitrate (Imdur -) 60 mg PO DAILY [facility] Last Admin: 03/24/19 10:56 Dose: 60 mg Labetalol HCl (Normodyne -) 400 mg PO BID [facility] Methadone HCl 40 mg/ Methadone (HCl 20 mg) 60 mg PO DAILY@0600 [facility] Nifedipine (Procardia Xl -) 90 mg PO DAILY [facility] Last Admin: 03/24/19 10:55 Dose: 90 mg Pantoprazole Sodium (Protonix -) 40 mg PO DAILY [facility] Last Admin: 03/24/19 10:55 Dose: 40 mg Todays - Labs - pending CBC, BMP 03/23/19 05:48 03/24/19 05:55 Physical Exam . Awake/ comfortable S1 S2 RRR Lungs decreased at bases Abd-soft, NT edema trace PLAN on Lasix--Po Cardiology follow up noted Labetalol increased f/u labs today and monitor bp and BGM clinically better monitor renal function if stable- will consider d/c in am D/w pt - Agree with Plan D/W RN also Ambulate will follow Problem List - Problems (1) CHF exacerbation Code(s): I50.9 - HEART FAILURE, UNSPECIFIED Qualifiers: (2) CKD (chronic kidney disease) Code(s): N18.9 - CHRONIC KIDNEY DISEASE, UNSPECIFIED (3) Elevated troponin I level Code(s): R79.89 - OTHER SPECIFIED ABNORMAL FINDINGS OF BLOOD CHEMISTRY (4) Diastolic CHF Code(s): I50.30 - UNSPECIFIED DIASTOLIC (CONGESTIVE) HEART FAILURE (5) History of lung cancer Code(s): Z85.118 - PERSONAL HISTORY OF MALIGNANT NEOPLASM OF BRONCHUS AND LUNG (6) History of substance abuse Code(s): F19.11 - OTHER PSYCHOACTIVE SUBSTANCE ABUSE, IN REMISSION (7) Status post lung surgery Code(s): Z98.890 - OTHER SPECIFIED POSTPROCEDURAL STATES (8) Diabetes Code(s): E11.9 - TYPE 2 DIABETES MELLITUS WITHOUT COMPLICATIONS Qualifiers: Diabetes mellitus type: type 2 Chronic kidney disease stage: on chronic dialysis
[2019-03-25] MEDS: NIFEdipine E.R. 90 MG TABLET (FP) PO SCH (10:34)
[2019-03-25] MEDS: LABETALOL HCL 200 MG TABLET (FP) PO SCH ×2 (10:34→21:47)
[2019-03-25] MEDS: ASPIRIN COATED 81 MG TABLET.EC PO SCH (10:35)
[2019-03-25] MEDS: METHADONE HCL 40 MG DISPERSABLE TABLET PO SCH ×2 (10:41→12:18)
[2019-03-25 11:24] LABS: BLOOD UREA NITROGEN 72.4 mg/dL (7-18); CALCIUM 8.4 mg/dL (8.5-10.1); CREATININE 2.9 mg/dL (0.55-1.3)
--- NOTE | 2019-03-25 12:53 | PN ---
Progress Note (short form) - Note Progress Note: Renal follow up for CKD Seen and examined at the bedside reports feeling better denies any chest pain, shortness of breth still has mild MEHTA has leg swelling making urine Vital Signs Temperature 98.8 F 03/25/19 08:45 Pulse Rate 64 03/25/19 08:45 Respiratory Rate 18 03/25/19 08:45 Blood Pressure 147/75 03/25/19 08:45 O2 Sat by Pulse Oximetry (%) 95 03/24/19 21:00 Intake & Output 03/22/19 03/23/19 03/24/19 03/25/19 23:59 23:59 23:59 23:59 Intake Total 480 460 250 Balance 480 460 250 Weight 90.718 kg 77.655 kg 77.337 kg 77.564 kg NAD awake and alert RRR Dec BS bilateral lung [place] soft NT/ND + edema in LE CBC, BMP 03/23/19 05:48 03/25/19 10:05 Current Medications Acetaminophen (Tylenol -) 650 mg PO Q4H PRN PRN Reason: PAIN LEVEL 1-5 Aspirin (Ecotrin -) 81 mg PO DAILY [facility] Last Admin: 03/25/19 10:35 Dose: 81 mg Atorvastatin Calcium (Lipitor -) 20 mg PO HS [facility] Last Admin: 03/24/19 22:05 Dose: 20 mg Calcium Acetate (Phoslo -) 667 mg PO TIDCM [facility] Last Admin: 03/25/19 12:11 Dose: 667 mg Clopidogrel Bisulfate (Plavix -) 75 mg PO DAILY [facility] Last Admin: 03/25/19 10:33 Dose: 75 mg Enoxaparin Sodium (Lovenox -) 30 mg SQ DAILY [facility] Last Admin: 03/25/19 10:31 Dose: 30 mg Furosemide (Lasix Injection -) 80 mg IVPUSH BID@0600,1400 [facility] Insulin Aspart (Novolog Vial Sliding Scale -) [facility]; Protocol Last Admin: 03/25/19 06:11 Dose: Not Given Insulin Detemir (Levemir Vial) 20 units SQ HS [facility] Isosorbide Mononitrate (Imdur -) 60 mg PO DAILY [facility] Last Admin: 03/25/19 10:33 Dose: 60 mg Labetalol HCl (Normodyne -) 400 mg PO BID [facility] Last Admin: 03/25/19 10:34 Dose: 400 mg Methadone HCl 40 mg/ Methadone (HCl 20 mg) 60 mg PO DAILY@0600 [facility] Last Admin: 03/25/19 10:32 Dose: 60 mg Nifedipine (Procardia Xl -) 90 mg PO DAILY [facility] Last Admin: 03/25/19 10:34 Dose: 90 mg Pantoprazole Sodium (Protonix -) 40 mg PO DAILY [facility] Last Admin: 03/25/19 10:33 Dose: 40 mg 68 year old male with pmhx of htn, bret requiring HD, DM, COPD, HLD, PVD with femoral stents, methadone dependence and lung cancer who presents to the ER with edema and shortness of breath. 1. CKD/BRET 2. Congestive heart failure 3. DM 4. COPD 5. Chronic anemia BUN/Cr up trending s/p diuresis, however would continue IV Lasix BID until pt is euvolemic there is no acute indication for [employer]FORMATION [employer] educated on sodium restriction Check iron studies for anemia, may benefit from ALBA Continue Labetalol, Nifedipine for hypertensoin would withhold any LUKE/ARB untril pt is off IV diuretics Thank you Dariusz Iniguez DO
[2019-03-25] MEDS: INSULIN (LEVEMIR) 100 UNITS/ML UNITS SQ SCH (21:48)
[2019-03-25] MEDS: ATORVASTATIN CA 20 MG TABLET (FP) PO SCH (21:48)
[2019-03-26] MEDS ORDERED: METHADONE HCL 10 MG TABLET ONE (05:59)
[2019-03-26] MEDS ORDERED: METHADONE HCL 40 MG DISPERSABLE TABLET ONE (05:59)
[2019-03-26] MEDS: METHADONE 40 MG, METHADONE 20 MG PO SCH (06:06)
[2019-03-26] MEDS: FUROSEMIDE 40 MG/4 ML INJECTABLE VIAL IVPUSH SCH (06:07)
[2019-03-26] MEDS: INSULIN SLIDING SCALE (NOVOLOG) 1 VIAL SQ SCH ×2 (06:07→17:04)
[2019-03-26 06:40] LABS: BASO % 0.9 % (0-2.0); EOS % 2.9 % (0-4.5); HEMATOCRIT 27.5 % (35.4-49); HEMOGLOBIN 9.2 GM/dL (11.7-16.9); LYMPH % 18.9 % (8-40); MCH 30.2 pg (25.7-33.7); MCHC 33.6 g/dl (32.0-35.9); MEAN CELL VOLUME 89.8 fl (80-96); MEAN PLT VOLUME 8.4 fl (7.5-11.1); NEUT % 69.3 % (42.8-82.8); PLATELET COUNT 221 K/MM3 (134-434); RBC 3.06 M/mm3 (4.00-5.60); RDW 16.1 % (11.9-15.9); WHITE BLOOD COUNT 7.3 K/mm3 (4.0-10.0)
[2019-03-26 07:03] LABS: BLOOD UREA NITROGEN 79.8 mg/dL (7-18); CALCIUM 8.4 mg/dL (8.5-10.1); CREATININE 2.8 mg/dL (0.55-1.3); MAGNESIUM 2.1 mg/dL (1.8-2.4); PHOSPHOROUS 4.2 mg/dL (2.5-4.9)
[2019-03-26] MEDS: CALCIUM ACETATE 667 MG CAPSULE (FP) PO SCH ×3 (08:17→17:04)
[2019-03-26] MEDS: ENOXAPARIN NA (PORCINE) 30 MG/0.3 ML DISP.SYRIN SQ SCH (09:35)
[2019-03-26] MEDS: LABETALOL HCL 200 MG TABLET (FP) PO SCH ×2 (09:35→21:40)
[2019-03-26] MEDS: ASPIRIN COATED 81 MG TABLET.EC PO SCH (09:36)
[2019-03-26] MEDS: PANTOPRAZOLE 40 MG TABLET (FP) PO SCH (09:36)
[2019-03-26] MEDS: ISOSORBIDE MONONITRATE 60 MG TAB.SR.24H (FP) PO SCH (09:36)
[2019-03-26] MEDS: NIFEdipine E.R. 90 MG TABLET (FP) PO SCH (09:36)
[2019-03-26] MEDS: CLOPIDOGREL BISULFATE 75 MG TABLET (FP) PO SCH (09:36)
--- NOTE | 2019-03-26 11:28 | PN ---
Progress Note (short form) - Note Progress Note: s: sob worse today, feels congested and SOB when walking and while talking. still with edema, no cp, palps, dizziness Current Medications Acetaminophen (Tylenol -) 650 mg PO Q4H PRN PRN Reason: PAIN LEVEL 1-5 Aspirin (Ecotrin -) 81 mg PO DAILY REPLACED BY [facility] Last Admin: 03/26/19 09:36 Dose: 81 mg Atorvastatin Calcium (Lipitor -) 20 mg PO HS REPLACED BY [facility] Last Admin: 03/25/19 21:48 Dose: 20 mg Calcium Acetate (Phoslo -) 667 mg PO TIDCM REPLACED BY [facility] Last Admin: 03/26/19 08:17 Dose: 667 mg Clopidogrel Bisulfate (Plavix -) 75 mg PO DAILY REPLACED BY [facility] Last Admin: 03/26/19 09:36 Dose: 75 mg Enoxaparin Sodium (Lovenox -) 30 mg SQ DAILY REPLACED BY [facility] Last Admin: 03/26/19 09:35 Dose: 30 mg Furosemide (Lasix Injection -) 80 mg IVPUSH BID@0600,1400 REPLACED BY [facility] Last Admin: 03/26/19 06:07 Dose: 80 mg Insulin Aspart (Novolog Vial Sliding Scale -) [facility]; Protocol Last Admin: 03/26/19 06:07 Dose: Not Given Insulin Detemir (Levemir Vial) 20 units SQ [facility] Last Admin: 03/25/19 21:48 Dose: 20 units Isosorbide Mononitrate (Imdur -) 60 mg PO DAILY REPLACED BY [facility] Last Admin: 03/26/19 09:36 Dose: 60 mg Labetalol HCl (Normodyne -) 400 mg PO BID REPLACED BY [facility] Last Admin: 03/26/19 09:35 Dose: 400 mg Methadone HCl 40 mg/ Methadone (HCl 20 mg) 60 mg PO DAILY@0600 REPLACED BY [facility] Last Admin: 03/26/19 06:06 Dose: 60 mg Nifedipine (Procardia Xl -) 90 mg PO DAILY REPLACED BY [facility] Last Admin: 03/26/19 09:36 Dose: 90 mg Pantoprazole Sodium (Protonix -) 40 mg PO DAILY REPLACED BY [facility] Last Admin: 03/26/19 09:36 Dose: 40 mg Polyethylene Glycol (Miralax (For Daily Use) -) 17 gm PO DAILY REPLACED BY [facility] Vital Signs Period Temp Pulse Resp BP Sys/Bansal Pulse Ox Last 24 Hr 97.4 F-98.7 F 64-76 17-20 129-186/69-80 99 Constitutional: Yes: Well Nourished, No Distress, Calm Cardiovascular: Yes: Regular Rate and Rhythm, JVD (10 cm), S1, S2. No: Gallop, Murmur Respiratory: Yes: Regular, CTA Bilaterally, Diminished (R base). No: Accessory Muscle Use, Rales, Wheezes Extremities: No: Cold Edema: Yes (1-2+ pretib) Neurological: Yes: Alert, Oriented Psychiatric: No: Agitated Assessment/Plan mibi 2015 no ischemia, nl EF Echo 10/2018 nl LV function, EF 55-60%, grade II diastolic dysfunction, RV nl, mild MR, mild AR, mod ao root dilatation CXR mod R pleural effusion stable since 10/2018 EKG: sinus,nl intervals no ischemic changes tele: SR, artifact 68M h/o HTN, DM, HLD, PAD s/p femoral stent, prior smoker, R sided lung ca s/p partial resection, ESRD on HD here with sob. acute diastolic chf: -volume overload after recently stopping hd -received lasix 40 iv bid. 03/25 increased lasix to 80 iv bid. - today Cr improving 2.9->2.8, however weight up and dyspnea worse - inc lasix to 100 mg IV BID HTN - improving with incr labetalol 300 to 400 bid - cont other meds same HLD - cont statin PAD - cont statin, plavix DM - manage per primary CKD - had been on HD, then stopped recently as renal fcn improved - per renal team elevated trop: -borderline trop elevation, flat trend, nl ck, similar to prior baseline values , not c/w acs
[2019-03-26] MEDS: POLYETHYLENE GLYCOL 3350 119 GM BTL PO SCH (11:56)
--- NOTE | 2019-03-26 12:54 | PN ---
Progress Note (short form) - Note Progress Note: Renal follow up for CKD Seen and examined at the bedside awake and alert feels fatigued today has mild shortness of breath when he walks still legs still slightly swollen Vital Signs Temperature 97.9 F 03/26/19 09:34 Pulse Rate 66 03/26/19 09:34 Respiratory Rate 19 03/26/19 09:34 Blood Pressure 148/76 03/26/19 09:34 O2 Sat by Pulse Oximetry (%) 95 03/26/19 09:00 Intake & Output 03/23/19 03/24/19 03/25/19 03/26/19 23:59 23:59 23:59 23:59 Intake Total 702 206 6928 630 Balance 798 700 4953 630 Weight 77.655 kg 77.337 kg 77.564 kg 81.647 kg NAD awake and alert RRR Dec BS bilateral lung [place] soft NT/ND + edema in LE CBC, BMP 03/26/19 06:10 03/26/19 06:10 Current Medications Acetaminophen (Tylenol -) 650 mg PO Q4H PRN PRN Reason: PAIN LEVEL 1-5 Aspirin (Ecotrin -) 81 mg PO DAILY [facility] Last Admin: 03/26/19 09:36 Dose: 81 mg Atorvastatin Calcium (Lipitor -) 20 mg PO HS [facility] Last Admin: 03/25/19 21:48 Dose: 20 mg Calcium Acetate (Phoslo -) 667 mg PO TIDCM [facility] Last Admin: 03/26/19 11:56 Dose: 667 mg Clopidogrel Bisulfate (Plavix -) 75 mg PO DAILY [facility] Last Admin: 03/26/19 09:36 Dose: 75 mg Enoxaparin Sodium (Lovenox -) 30 mg SQ DAILY [facility] Last Admin: 03/26/19 09:35 Dose: 30 mg Furosemide (Lasix Injection -) 100 mg IVPUSH BID@0600,1400 [facility] Insulin Aspart (Novolog Vial Sliding Scale -) [facility]; Protocol Last Admin: 03/26/19 06:07 Dose: Not Given Insulin Detemir (Levemir Vial) 20 units SQ HS [facility] Last Admin: 03/25/19 21:48 Dose: 20 units Isosorbide Mononitrate (Imdur -) 60 mg PO DAILY [facility] Last Admin: 03/26/19 09:36 Dose: 60 mg Labetalol HCl (Normodyne -) 400 mg PO BID [facility] Last Admin: 03/26/19 09:35 Dose: 400 mg Methadone HCl 40 mg/ Methadone (HCl 20 mg) 60 mg PO DAILY@0600 [facility] Last Admin: 03/26/19 06:06 Dose: 60 mg Nifedipine (Procardia Xl -) 90 mg PO DAILY [facility] Last Admin: 03/26/19 09:36 Dose: 90 mg Pantoprazole Sodium (Protonix -) 40 mg PO DAILY [facility] Last Admin: 03/26/19 09:36 Dose: 40 mg Polyethylene Glycol (Miralax (For Daily Use) -) 17 gm PO DAILY [facility] Last Admin: 03/26/19 11:56 Dose: 17 gm 68 year old male with pmhx of htn, bret requiring HD, DM, COPD, HLD, PVD with femoral stents, methadone dependence and lung cancer who presents to the ER with edema and shortness of breath. 1. CKD/BRET 2. Congestive heart failure 3. DM 4. COPD 5. Chronic anemia Renal function stable over the past 24 hours Lasix increased as per Cardiology there is no acute indication for [employer] Iron saturation is at goal, will give Epogen SC for CKD related anemia Continue Labetalol, Nifedipine for hypertensoin would withhold any LUKE/ARB untril pt is off IV diuretics Thank you Dariusz Iniguez DO
[2019-03-26] MEDS ORDERED: EPOETIN ALFA 20,000 UNIT/1 ML VIAL SQ ONE (13:00)
--- NOTE | 2019-03-26 13:04 | PN ---
Progress Note (short form) - Note Progress Note: feels slightly SOB , cough No chest pain Vital Signs - 24 hr 03/25/19 03/25/19 03/25/19 14:00 18:00 21:00 Temperature 97.4 F L 98.0 F Pulse Rate 70 69 Respiratory 17 20 Rate Blood Pressure 183/78 H 129/69 O2 Sat by Pulse 99 Oximetry (%) 03/25/19 03/26/19 03/26/19 22:00 02:00 06:00 Temperature 98.7 F 97.8 F 97.7 F Pulse Rate 76 64 75 Respiratory 20 19 20 Rate Blood Pressure 186/80 H 160/71 135/74 O2 Sat by Pulse Oximetry (%) 03/26/19 03/26/19 09:00 09:34 Temperature 97.9 F Pulse Rate 66 Respiratory 19 Rate Blood Pressure 148/76 O2 Sat by Pulse 95 Oximetry (%) Current Medications Generic Name Dose Route Start Last Admin Trade Name Freq PRN Reason Stop Dose Admin Acetaminophen 650 mg 03/22/19 18:09 Tylenol - PO Q4H PRN PAIN LEVEL 1-5 Aspirin 81 mg 03/23/19 10:00 03/26/19 09:36 Ecotrin - PO 81 mg DAILY [facility] Administration Atorvastatin Calcium 20 mg 03/22/19 22:00 03/25/19 21:48 Lipitor - PO 20 mg HS [facility] Administration Calcium Acetate 667 mg 03/23/19 08:00 03/26/19 11:56 Phoslo - PO 667 mg TIDCM [facility] Administration Clopidogrel Bisulfate 75 mg 03/23/19 10:00 03/26/19 09:36 Plavix - PO 75 mg DAILY [facility] Administration Enoxaparin Sodium 30 mg 03/23/19 10:00 03/26/19 09:35 Lovenox - SQ 30 mg DAILY [facility] Administration Epoetin Guru 20,000 unit 03/26/19 13:00 Procrit - SQ 03/26/19 13:01 ONCE ONE Furosemide 100 mg 03/26/19 14:00 Lasix Injection - IVPUSH BID@0600,1400 [facility] Insulin Aspart 1 vial 03/23/19 07:00 03/26/19 06:07 Novolog Vial Sliding Scale - SQ Not Given BIDAC [facility] Protocol Insulin Detemir 20 units 03/25/19 11:14 03/25/19 21:48 Levemir Vial SQ 20 units HS [facility] Administration Isosorbide Mononitrate 60 mg 03/23/19 10:00 03/26/19 09:36 Imdur - PO 60 mg DAILY [facility] Administration Labetalol HCl 400 mg 03/25/19 09:35 03/26/19 09:35 Normodyne - PO 400 mg BID [facility] Administration Methadone HCl 40 mg/ Methadone 60 mg 03/25/19 09:45 03/26/19 06:06 HCl 20 mg PO 60 mg DAILY@0600 [facility] Administration Nifedipine 90 mg 03/23/19 10:00 03/26/19 09:36 Procardia Xl - PO 90 mg DAILY [facility] Administration Pantoprazole Sodium 40 mg 03/23/19 10:00 03/26/19 09:36 Protonix - PO 40 mg DAILY [facility] Administration Polyethylene Glycol 17 gm 03/26/19 11:15 03/26/19 11:56 Miralax (For Daily Use) - PO 17 gm DAILY [facility] Administration Laboratory Results - last 24 hr 03/25/19 03/25/19 03/26/19 17:15 21:46 06:04 WBC RBC Hgb Hct MCV MCH MCHC RDW Plt Count MPV Absolute Neuts (auto) Neutrophils % Lymphocytes % Monocytes % Eosinophils % Basophils % Nucleated RBC % Sodium Potassium Chloride Carbon Dioxide Anion Gap BUN Creatinine Est GFR (CKD-EPI)AfAm Est GFR (CKD-EPI)NonAf POC Glucometer 177 196 77 Random Glucose Calcium Phosphorus Magnesium Iron TIBC Iron Saturation Unsaturated IBC Ferritin 03/26/19 03/26/19 03/26/19 06:10 06:10 06:10 WBC 7.3 RBC 3.06 L Hgb 9.2 L Hct 27.5 L MCV 89.8 MCH 30.2 MCHC 33.6 RDW 16.1 H Plt Count 221 MPV 8.4 Absolute Neuts (auto) 5.0 Neutrophils % 69.3 Lymphocytes % 18.9 Monocytes % 8.0 Eosinophils % 2.9 Basophils % 0.9 Nucleated RBC % 0 Sodium 144 Potassium 4.0 Chloride 107 Carbon Dioxide 28 Anion Gap 9 BUN 79.8 H Creatinine 2.8 H Est GFR (CKD-EPI)AfAm 25.34 Est GFR (CKD-EPI)NonAf 21.86 POC Glucometer Random Glucose 69 L Calcium 8.4 L Phosphorus 4.2 Magnesium 2.1 Iron 50 TIBC 235 L Iron Saturation 21 Unsaturated IBC 185 L Ferritin 318.8 S1 S2 RRR Lungs-- decreased breath sounds Abd-soft, NT edema trace PLAN renal follow up noted Cardiology follow up noted increased Lasix BID anival increased monitor renal function
[2019-03-26] MEDS: FUROSEMIDE 100 MG/10 ML INJECTABLE VIAL IVPUSH SCH (14:22)
[2019-03-26] MEDS: INSULIN (LEVEMIR) 100 UNITS/ML UNITS SQ SCH (21:40)
[2019-03-26] MEDS: ATORVASTATIN CA 20 MG TABLET (FP) PO SCH (21:40)
[2019-03-27] MEDS: INSULIN SLIDING SCALE (NOVOLOG) 1 VIAL SQ SCH ×2 (06:19→16:54)
[2019-03-27] MEDS ORDERED: METHADONE HCL 40 MG DISPERSABLE TABLET ONE (06:21)
[2019-03-27] MEDS ORDERED: METHADONE HCL 10 MG TABLET ONE (06:22)
[2019-03-27] MEDS: METHADONE 40 MG, METHADONE 20 MG PO SCH (06:30)
[2019-03-27] MEDS: FUROSEMIDE 100 MG/10 ML INJECTABLE VIAL IVPUSH SCH ×2 (06:30→14:31)
[2019-03-27 07:09] LABS: CALCIUM 8.3 mg/dL (8.5-10.1); CREATININE 2.6 mg/dL (0.55-1.3); MAGNESIUM 2.1 mg/dL (1.8-2.4); PHOSPHOROUS 4.1 mg/dL (2.5-4.9); POTASSIUM 3.7 mmol/L (3.5-5.1)
[2019-03-27] MEDS: CALCIUM ACETATE 667 MG CAPSULE (FP) PO SCH ×3 (08:23→17:04)
[2019-03-27] MEDS: ISOSORBIDE MONONITRATE 60 MG TAB.SR.24H (FP) PO SCH (09:07)
[2019-03-27] MEDS: PANTOPRAZOLE 40 MG TABLET (FP) PO SCH (09:07)
[2019-03-27] MEDS: ASPIRIN COATED 81 MG TABLET.EC PO SCH (09:07)
[2019-03-27] MEDS: ENOXAPARIN NA (PORCINE) 30 MG/0.3 ML DISP.SYRIN SQ SCH (09:07)
[2019-03-27] MEDS: LABETALOL HCL 200 MG TABLET (FP) PO SCH ×2 (09:07→22:38)
[2019-03-27] MEDS: CLOPIDOGREL BISULFATE 75 MG TABLET (FP) PO SCH (09:07)
[2019-03-27] MEDS: NIFEdipine E.R. 90 MG TABLET (FP) PO SCH (09:07)
[2019-03-27] MEDS: POLYETHYLENE GLYCOL 3350 119 GM BTL PO SCH (09:08)
--- NOTE | 2019-03-27 11:33 | PN ---
Progress Note (short form) - Note Progress Note: feels SOB , cough Vital Signs - 24 hr 03/26/19 03/26/19 03/26/19 14:00 14:51 18:00 Temperature 98.3 F 98.1 F Pulse Rate 67 66 71 Respiratory 16 18 20 Rate Blood Pressure 173/73 H 158/77 122/57 L O2 Sat by Pulse Oximetry (%) 03/26/19 03/26/19 03/27/19 21:00 22:00 02:00 Temperature 98.1 F 97.9 F Pulse Rate 66 61 Respiratory 18 18 Rate Blood Pressure 167/77 138/58 L O2 Sat by Pulse 96 Oximetry (%) 03/27/19 03/27/19 03/27/19 05:40 09:00 09:03 Temperature 97.4 F L 97.8 F Pulse Rate 65 67 Respiratory 18 18 Rate Blood Pressure 171/65 H 161/69 O2 Sat by Pulse 95 Oximetry (%) Current Medications Generic Name Dose Route Start Last Admin Trade Name Freq PRN Reason Stop Dose Admin Acetaminophen 650 mg 03/22/19 18:09 Tylenol - PO Q4H PRN PAIN LEVEL 1-5 Aspirin 81 mg 03/23/19 10:00 03/27/19 09:07 Ecotrin - PO 81 mg DAILY [facility] Administration Atorvastatin Calcium 20 mg 03/22/19 22:00 03/26/19 21:40 Lipitor - PO 20 mg HS [facility] Administration Calcium Acetate 667 mg 03/23/19 08:00 03/27/19 08:23 Phoslo - PO 667 mg TIDCM [facility] Administration Clopidogrel Bisulfate 75 mg 03/23/19 10:00 03/27/19 09:07 Plavix - PO 75 mg DAILY [facility] Administration Enoxaparin Sodium 30 mg 03/23/19 10:00 03/27/19 09:07 Lovenox - SQ 30 mg DAILY [facility] Administration Furosemide 100 mg 03/26/19 14:00 03/27/19 06:30 Lasix Injection - IVPUSH 100 mg BID@0600,1400 [facility] Administration Insulin Aspart 1 vial 03/23/19 07:00 03/27/19 06:19 Novolog Vial Sliding Scale - SQ Not Given [facility] Protocol Insulin Detemir 20 units 03/25/19 11:14 03/26/19 21:40 Levemir Vial SQ 20 units HS [facility] Administration Isosorbide Mononitrate 60 mg 03/23/19 10:00 03/27/19 09:07 Imdur - PO 60 mg DAILY [facility] Administration Labetalol HCl 400 mg 03/25/19 09:35 03/27/19 09:07 Normodyne - PO 400 mg BID [facility] Administration Methadone HCl 40 mg/ Methadone 60 mg 03/25/19 09:45 03/27/19 06:30 HCl 20 mg PO 60 mg DAILY@0600 [facility] Administration Nifedipine 90 mg 03/23/19 10:00 03/27/19 09:07 Procardia Xl - PO 90 mg DAILY [facility] Administration Pantoprazole Sodium 40 mg 03/23/19 10:00 03/27/19 09:07 Protonix - PO 40 mg DAILY [facility] Administration Polyethylene Glycol 17 gm 03/26/19 11:15 03/27/19 09:08 Miralax (For Daily Use) - PO 17 gm DAILY [facility] Administration Laboratory Results - last 24 hr 03/26/19 03/26/19 03/27/19 17:03 21:38 06:01 Sodium Potassium Chloride Carbon Dioxide Anion Gap BUN Creatinine Est GFR (CKD-EPI)AfAm Est GFR (CKD-EPI)NonAf POC Glucometer 186 202 102 Random Glucose Calcium Phosphorus Magnesium 03/27/19 06:07 Sodium 143 Potassium 3.7 Chloride 105 Carbon Dioxide 30 Anion Gap 8 BUN 79.0 H Creatinine 2.6 H Est GFR (CKD-EPI)AfAm 27.72 Est GFR (CKD-EPI)NonAf 23.91 POC Glucometer Random Glucose 69 L Calcium 8.3 L Phosphorus 4.1 Magnesium 2.1 S1 S2 RRR Lungs-- decreased breath sounds Abd-soft, NT edema trace PLAN increased Lasix BID weight better CR noted ct chest ordered monitor renal function
--- NOTE | 2019-03-27 11:42 | PN ---
Progress Note (short form) - Note Progress Note: s: sob, edema improving. no chest pain, palps, dizziness. complains of cough and congestion Current Medications Acetaminophen (Tylenol -) 650 mg PO Q4H PRN PRN Reason: PAIN LEVEL 1-5 Aspirin (Ecotrin -) 81 mg PO DAILY [facility] Last Admin: 03/27/19 09:07 Dose: 81 mg Atorvastatin Calcium (Lipitor -) 20 mg PO HS [facility] Last Admin: 03/26/19 21:40 Dose: 20 mg Calcium Acetate (Phoslo -) 667 mg PO TIDCM [facility] Last Admin: 03/27/19 08:23 Dose: 667 mg Clopidogrel Bisulfate (Plavix -) 75 mg PO DAILY [facility] Last Admin: 03/27/19 09:07 Dose: 75 mg Enoxaparin Sodium (Lovenox -) 30 mg SQ DAILY [facility] Last Admin: 03/27/19 09:07 Dose: 30 mg Furosemide (Lasix Injection -) 100 mg IVPUSH BID@0600,1400 [facility] Last Admin: 03/27/19 06:30 Dose: 100 mg Insulin Aspart (Novolog Vial Sliding Scale -) [facility]; Protocol Last Admin: 03/27/19 06:19 Dose: Not Given Insulin Detemir (Levemir Vial) 20 units SQ [facility] Last Admin: 03/26/19 21:40 Dose: 20 units Isosorbide Mononitrate (Imdur -) 60 mg PO DAILY [facility] Last Admin: 03/27/19 09:07 Dose: 60 mg Labetalol HCl (Normodyne -) 400 mg PO BID [facility] Last Admin: 03/27/19 09:07 Dose: 400 mg Methadone HCl 40 mg/ Methadone (HCl 20 mg) 60 mg PO DAILY@0600 [facility] Last Admin: 03/27/19 06:30 Dose: 60 mg Nifedipine (Procardia Xl -) 90 mg PO DAILY [facility] Last Admin: 03/27/19 09:07 Dose: 90 mg Pantoprazole Sodium (Protonix -) 40 mg PO DAILY [facility] Last Admin: 03/27/19 09:07 Dose: 40 mg Polyethylene Glycol (Miralax (For Daily Use) -) 17 gm PO DAILY [facility] Last Admin: 03/27/19 09:08 Dose: 17 gm Vital Signs Period Temp Pulse Resp BP Sys/Bansal Pulse Ox Last 24 Hr 97.4 F-98.3 F 61-71 16-20 122-173/57-77 95-96 Constitutional: Yes: Well Nourished, No Distress, Calm Cardiovascular: Yes: Regular Rate and Rhythm, JVD (10 cm), S1, S2. No: Gallop, Murmur Respiratory: Yes: Regular, CTA Bilaterally, Diminished (R base). No: Accessory Muscle Use, Rales, Wheezes Extremities: No: Cold Edema: Yes (1-2+ pretib) Neurological: Yes: Alert, Oriented Psychiatric: No: Agitated Assessment/Plan mibi 2015 no ischemia, nl EF Echo 10/2018 nl LV function, EF 55-60%, grade II diastolic dysfunction, RV nl, mild MR, mild AR, mod ao root dilatation CXR mod R pleural effusion stable since 10/2018 EKG: sinus,nl intervals no ischemic changes tele: SR, artifact 68M h/o HTN, DM, HLD, PAD s/p femoral stent, prior smoker, R sided lung ca s/p partial resection, ESRD on HD here with sob. acute diastolic chf: -volume overload after recently stopping hd -received lasix 40 iv bid. 03/25 increased lasix to 80 iv bid, 03/26 inc to 100 mg IV BID - Cr improving, weight down, cont lasix 100 mg IV BID - CXR yesterday with stable R pleural effusion and congestive changes, CT chest pending HTN - incr labetalol 300 to 400 bid - cont other meds same HLD - cont statin PAD - cont statin, plavix DM - manage per primary CKD - had been on HD, then stopped recently as renal fcn improved - per renal team elevated trop: -borderline trop elevation, flat trend, nl ck, similar to prior baseline values , not c/w acs
--- NOTE | 2019-03-27 13:43 | PN ---
Progress Note (short form) - Note Progress Note: Renal follow up for CKD Seen and examined at the bedside feels like he has a cold leg swelling is improving making a lot of urine no shortness of breath, chest pain, fever or chills Vital Signs Temperature 97.8 F 03/27/19 09:03 Pulse Rate 67 03/27/19 09:03 Respiratory Rate 18 03/27/19 09:03 Blood Pressure 161/69 03/27/19 09:03 O2 Sat by Pulse Oximetry (%) 95 03/27/19 09:00 Intake & Output 03/24/19 03/25/19 03/26/19 03/27/19 23:59 23:59 23:59 23:59 Intake Total 460 1780 1515 780 Balance 460 1780 1515 780 Weight 77.337 kg 77.564 kg 81.647 kg 78.075 kg NAD awake and alert RRR Dec BS bilateral lung [place] soft NT/ND + edema in LE CBC, BMP 03/26/19 06:10 03/27/19 06:07 Current Medications Acetaminophen (Tylenol -) 650 mg PO Q4H PRN PRN Reason: PAIN LEVEL 1-5 Aspirin (Ecotrin -) 81 mg PO DAILY [facility] Last Admin: 03/27/19 09:07 Dose: 81 mg Atorvastatin Calcium (Lipitor -) 20 mg PO HS [facility] Last Admin: 03/26/19 21:40 Dose: 20 mg Calcium Acetate (Phoslo -) 667 mg PO TIDCM [facility] Last Admin: 03/27/19 12:01 Dose: 667 mg Clopidogrel Bisulfate (Plavix -) 75 mg PO DAILY [facility] Last Admin: 03/27/19 09:07 Dose: 75 mg Enoxaparin Sodium (Lovenox -) 30 mg SQ DAILY [facility] Last Admin: 03/27/19 09:07 Dose: 30 mg Furosemide (Lasix Injection -) 100 mg IVPUSH BID@0600,1400 [facility] Last Admin: 03/27/19 06:30 Dose: 100 mg Insulin Aspart (Novolog Vial Sliding Scale -) [facility] Protocol Last Admin: 03/27/19 06:19 Dose: Not Given Insulin Detemir (Levemir Vial) 20 units SQ HS [facility] Last Admin: 03/26/19 21:40 Dose: 20 units Isosorbide Mononitrate (Imdur -) 60 mg PO DAILY [facility] Last Admin: 03/27/19 09:07 Dose: 60 mg Labetalol HCl (Normodyne -) 400 mg PO BID [facility] Last Admin: 03/27/19 09:07 Dose: 400 mg Methadone HCl 40 mg/ Methadone (HCl 20 mg) 60 mg PO DAILY@0600 [facility] Last Admin: 03/27/19 06:30 Dose: 60 mg Nifedipine (Procardia Xl -) 90 mg PO DAILY [facility] Last Admin: 03/27/19 09:07 Dose: 90 mg Pantoprazole Sodium (Protonix -) 40 mg PO DAILY [facility] Last Admin: 03/27/19 09:07 Dose: 40 mg Polyethylene Glycol (Miralax (For Daily Use) -) 17 gm PO DAILY [facility] Last Admin: 03/27/19 09:08 Dose: 17 gm 68 year old male with pmhx of htn, bret requiring HD, DM, COPD, HLD, PVD with femoral stents, methadone dependence and lung cancer who presents to the ER with edema and shortness of breath. 1. CKD/BRET 2. Congestive heart failure 3. DM 4. COPD 5. Chronic anemia Cr improved over the lat 24 hours clinically improving as well as edema has resolved Would continue Lasix 100mg IV BID for now, trend BUN/Cr and electroytes there is no acute indication for [employer] s/p Epogen for anemia Continue Labetalol, Nifedipine for hypertensoin would withhold any LUKE/ARB untril pt is off IV diuretics Thank you Dariusz Iniguez DO
[2019-03-27] MEDS: ATORVASTATIN CA 20 MG TABLET (FP) PO SCH (22:38)
[2019-03-27] MEDS: INSULIN (LEVEMIR) 100 UNITS/ML UNITS SQ SCH (22:50)
[2019-03-27] MEDS ORDERED: MAGNESIUM HYDROX 2400MG/30ML ORAL SUSPENSION 30 ML CUP PO ONE (22:51)
[2019-03-27] MEDS ORDERED: INSULIN (LEVEMIR) 100 UNITS/ML UNITS SQ ONE (23:14)
[2019-03-28] MEDS ORDERED: METHADONE HCL 40 MG DISPERSABLE TABLET ONE (06:37)
[2019-03-28] MEDS ORDERED: METHADONE HCL 10 MG TABLET ONE (06:37)
[2019-03-28] MEDS: METHADONE 40 MG, METHADONE 20 MG PO SCH (06:45)
[2019-03-28] MEDS: FUROSEMIDE 100 MG/10 ML INJECTABLE VIAL IVPUSH SCH ×2 (06:45→13:15)
[2019-03-28] MEDS: INSULIN SLIDING SCALE (NOVOLOG) 1 VIAL SQ SCH ×2 (06:51→16:55)
[2019-03-28 07:34] LABS: CALCIUM 8.2 mg/dL (8.5-10.1); CREATININE 2.5 mg/dL (0.55-1.3); MAGNESIUM 2.3 mg/dL (1.8-2.4); PHOSPHOROUS 3.7 mg/dL (2.5-4.9); POTASSIUM 4.1 mmol/L (3.5-5.1)
[2019-03-28] MEDS: CALCIUM ACETATE 667 MG CAPSULE (FP) PO SCH ×3 (08:52→16:55)
[2019-03-28] MEDS: ENOXAPARIN NA (PORCINE) 30 MG/0.3 ML DISP.SYRIN SQ SCH (09:19)
[2019-03-28] MEDS: PANTOPRAZOLE 40 MG TABLET (FP) PO SCH (09:20)
[2019-03-28] MEDS: CLOPIDOGREL BISULFATE 75 MG TABLET (FP) PO SCH (09:20)
[2019-03-28] MEDS: LABETALOL HCL 200 MG TABLET (FP) PO SCH ×2 (09:20→21:49)
[2019-03-28] MEDS: ASPIRIN COATED 81 MG TABLET.EC PO SCH (09:20)
[2019-03-28] MEDS: ISOSORBIDE MONONITRATE 60 MG TAB.SR.24H (FP) PO SCH (09:20)
[2019-03-28] MEDS: NIFEdipine E.R. 90 MG TABLET (FP) PO SCH (09:20)
[2019-03-28] MEDS: POLYETHYLENE GLYCOL 3350 119 GM BTL PO SCH (09:21)
--- NOTE | 2019-03-28 10:58 | PN ---
Progress Note (short form) - Note Progress Note: s: no cp palps dizzy; sob better Current Medications Generic Name Dose Route Start Last Admin Trade Name Freq PRN Reason Stop Dose Admin Acetaminophen 650 mg 03/22/19 18:09 Tylenol - PO Q4H PRN PAIN LEVEL 1-5 Aspirin 81 mg 03/23/19 10:00 03/28/19 09:20 Ecotrin - PO 81 mg DAILY [facility] Administration Atorvastatin Calcium 20 mg 03/22/19 22:00 03/27/19 22:38 Lipitor - PO 20 mg HS [facility] Administration Calcium Acetate 667 mg 03/23/19 08:00 03/28/19 08:52 Phoslo - PO 667 mg TIDCM [facility] Administration Clopidogrel Bisulfate 75 mg 03/23/19 10:00 03/28/19 09:20 Plavix - PO 75 mg DAILY [facility] Administration Enoxaparin Sodium 30 mg 03/23/19 10:00 03/28/19 09:19 Lovenox - SQ 30 mg DAILY [facility] Administration Furosemide 100 mg 03/26/19 14:00 03/28/19 06:45 Lasix Injection - IVPUSH 100 mg BID@0600,1400 [facility] Administration Insulin Aspart 1 vial 03/23/19 07:00 03/28/19 06:51 Novolog Vial Sliding Scale - SQ Not Given BIDAC [facility] Protocol Insulin Detemir 20 units 03/25/19 11:14 03/27/19 22:50 Levemir Vial SQ Not Given HS [facility] Isosorbide Mononitrate 60 mg 03/23/19 10:00 03/28/19 09:20 Imdur - PO 60 mg DAILY [facility] Administration Labetalol HCl 400 mg 03/25/19 09:35 03/28/19 09:20 Normodyne - PO 400 mg BID [facility] Administration Methadone HCl 40 mg/ Methadone 60 mg 03/25/19 09:45 03/28/19 06:45 HCl 20 mg PO 60 mg DAILY@0600 [facility] Administration Nifedipine 90 mg 03/23/19 10:00 03/28/19 09:20 Procardia Xl - PO 90 mg DAILY [facility] Administration Pantoprazole Sodium 40 mg 03/23/19 10:00 03/28/19 09:20 Protonix - PO 40 mg DAILY [facility] Administration Polyethylene Glycol 17 gm 03/26/19 11:15 03/28/19 09:21 Miralax (For Daily Use) - PO Not Given DAILY [facility] Vital Signs Period Temp Pulse Resp BP Sys/Bansal Pulse Ox Last 24 Hr 97.4 F-98.2 F 64-70 16-18 141-178/64-99 97 Constitutional: Yes: Well Nourished, No Distress, Calm Respiratory: Yes: bibasilar crackles, nl eff Gastrointestinal: Yes: Normal Bowel Sounds, Soft Cardiovascular: Yes: Regular Rate and Rhythm, nl s1 s2 JVD: No Extremities: No: Cold Edema: trace le edema bl Integumentary: No: Jaundice diaphoresis Neurological: Yes: Alert, Oriented Psychiatric: No: Agitated CBC, BMP 03/26/19 06:10 03/28/19 06:13 Assessment/Plan mibi 2015 no ischemia, nl EF echo 09/2018 nl LV function, mild MAC, tr MR, RVSP 32 mmHg echo 10/2018 nl LV function, EF 55-60%, grade II diastolic dysfunction, RV nl, mild MR, mild AR, mod ao root dilatation CXR mod R pleural effusion stable since 10/2018 EKG: sinus,nl intervals no ischemic changes tele: sinus 68M h/o HTN, DM, HLD, PAD s/p femoral stent, prior smoker, R sided lung ca s/p partial resection, ESRD on HD here with sob. acute diastolic chf: -volume overload after recently stopping hd -received lasix 40 iv bid. 03/25 increased lasix to 80 iv bid, 03/26 inc to 100 mg IV BID -Cr improving, weight down, cont lasix 100 mg IV BID HTN - cont current meds HLD - cont statin PAD - cont statin, plavix DM - manage per primary CKD - had been on HD, then stopped recently as renal fcn improved - per renal team elevated trop: -borderline trop elevation, flat trend, nl ck, similar to prior baseline values , not c/w acs
--- NOTE | 2019-03-28 11:32 | PN ---
Progress Note (short form) - Note Progress Note: feels better Vital Signs - 24 hr 03/27/19 03/27/19 03/27/19 14:00 18:00 21:00 Temperature 97.4 F L 98.2 F 97.8 F Pulse Rate 64 67 70 Respiratory 16 18 18 Rate Blood Pressure 178/79 H 152/64 161/68 O2 Sat by Pulse 97 Oximetry (%) 03/28/19 03/28/19 03/28/19 01:29 06:00 08:37 Temperature 97.8 F 97.5 F L 97.9 F Pulse Rate 64 65 64 Respiratory 18 18 18 Rate Blood Pressure 141/99 157/74 166/80 O2 Sat by Pulse Oximetry (%) Current Medications Generic Name Dose Route Start Last Admin Trade Name Freq PRN Reason Stop Dose Admin Acetaminophen 650 mg 03/22/19 18:09 Tylenol - PO Q4H PRN PAIN LEVEL 1-5 Aspirin 81 mg 03/23/19 10:00 03/28/19 09:20 Ecotrin - PO 81 mg DAILY [facility] Administration Atorvastatin Calcium 20 mg 03/22/19 22:00 03/27/19 22:38 Lipitor - PO 20 mg HS [facility] Administration Calcium Acetate 667 mg 03/23/19 08:00 03/28/19 08:52 Phoslo - PO 667 mg TIDCM [facility] Administration Clopidogrel Bisulfate 75 mg 03/23/19 10:00 03/28/19 09:20 Plavix - PO 75 mg DAILY [facility] Administration Enoxaparin Sodium 30 mg 03/23/19 10:00 03/28/19 09:19 Lovenox - SQ 30 mg DAILY [facility] Administration Furosemide 100 mg 03/26/19 14:00 03/28/19 06:45 Lasix Injection - IVPUSH 100 mg BID@0600,1400 [facility] Administration Insulin Aspart 1 vial 03/23/19 07:00 03/28/19 06:51 Novolog Vial Sliding Scale - SQ Not Given [facility] Protocol Insulin Detemir 15 units 03/28/19 11:30 Levemir Vial SQ HS [facility] Isosorbide Mononitrate 60 mg 03/23/19 10:00 03/28/19 09:20 Imdur - PO 60 mg DAILY [facility] Administration Labetalol HCl 400 mg 03/25/19 09:35 03/28/19 09:20 Normodyne - PO 400 mg BID [facility] Administration Methadone HCl 40 mg/ Methadone 60 mg 03/25/19 09:45 03/28/19 06:45 HCl 20 mg PO 60 mg DAILY@0600 [facility] Administration Nifedipine 90 mg 03/23/19 10:00 03/28/19 09:20 Procardia Xl - PO 90 mg DAILY [facility] Administration Pantoprazole Sodium 40 mg 03/23/19 10:00 03/28/19 09:20 Protonix - PO 40 mg DAILY [facility] Administration Polyethylene Glycol 17 gm 03/26/19 11:15 03/28/19 09:21 Miralax (For Daily Use) - PO Not Given DAILY [facility] Laboratory Results - last 24 hr 03/27/19 03/27/19 03/28/19 16:51 22:42 06:13 Sodium 140 Potassium 4.1 Chloride 101 Carbon Dioxide 33 H Anion Gap 6 L BUN 78.0 H Creatinine 2.5 H Est GFR (CKD-EPI)AfAm 29.06 Est GFR (CKD-EPI)NonAf 25.07 POC Glucometer 134 210 Random Glucose 101 Calcium 8.2 L Phosphorus 3.7 Magnesium 2.3 03/28/19 06:50 Sodium Potassium Chloride Carbon Dioxide Anion Gap BUN Creatinine Est GFR (CKD-EPI)AfAm Est GFR (CKD-EPI)NonAf POC Glucometer 98 Random Glucose Calcium Phosphorus Magnesium S1 S2 RRR Lungs-- decreased breath sounds Abd-soft, NT edema trace PLAN increased Lasix BID weight about the same CXR noted ct chest ordered monitor renal function -- better today OOB decrease levemir to 15 units as his sugars are low in AM
--- NOTE | 2019-03-28 11:58 | PN ---
Progress Note (short form) - Note Progress Note: Renal follow up for CKD Seen and examined at the bedside awake and alert offers no acute complaints denies any sob at rest, MEHTA is significantly improved, has no LE edema making urine Vital Signs Temperature 97.9 F 03/28/19 08:37 Pulse Rate 64 03/28/19 08:37 Respiratory Rate 18 03/28/19 08:37 Blood Pressure 166/80 03/28/19 08:37 O2 Sat by Pulse Oximetry (%) 97 03/28/19 09:00 Intake & Output 03/25/19 03/26/19 03/27/19 03/28/19 23:59 23:59 23:59 23:59 Intake Total 1780 1515 1360 570 Balance 1780 1515 1360 570 Weight 77.564 kg 81.647 kg 78.075 kg 78.471 kg NAD awake and alert RRR Dec BS bilateral lung [place] soft NT/ND no edema in LE CBC, BMP 03/26/19 06:10 03/28/19 06:13 Current Medications Acetaminophen (Tylenol -) 650 mg PO Q4H PRN PRN Reason: PAIN LEVEL 1-5 Aspirin (Ecotrin -) 81 mg PO DAILY [facility] Last Admin: 03/28/19 09:20 Dose: 81 mg Atorvastatin Calcium (Lipitor -) 20 mg PO HS [facility] Last Admin: 03/27/19 22:38 Dose: 20 mg Calcium Acetate (Phoslo -) 667 mg PO TIDCM [facility] Last Admin: 03/28/19 08:52 Dose: 667 mg Clopidogrel Bisulfate (Plavix -) 75 mg PO DAILY [facility] Last Admin: 03/28/19 09:20 Dose: 75 mg Enoxaparin Sodium (Lovenox -) 30 mg SQ DAILY [facility] Last Admin: 03/28/19 09:19 Dose: 30 mg Furosemide (Lasix Injection -) 100 mg IVPUSH BID@0600,1400 [facility] Last Admin: 03/28/19 06:45 Dose: 100 mg Insulin Aspart ([facility] Vial Sliding Scale -) [facility] Protocol Last Admin: 03/28/19 06:51 Dose: Not Given Insulin Detemir (Levemir Vial) 15 units SQ [facility] Isosorbide Mononitrate (Imdur -) 60 mg PO DAILY [facility] Last Admin: 03/28/19 09:20 Dose: 60 mg Labetalol HCl (Normodyne -) 400 mg PO BID [facility] Last Admin: 03/28/19 09:20 Dose: 400 mg Methadone HCl 40 mg/ Methadone (HCl 20 mg) 60 mg PO DAILY@0600 [facility] Last Admin: 03/28/19 06:45 Dose: 60 mg Nifedipine (Procardia Xl -) 90 mg PO DAILY [facility] Last Admin: 03/28/19 09:20 Dose: 90 mg Pantoprazole Sodium (Protonix -) 40 mg PO DAILY [facility] Last Admin: 03/28/19 09:20 Dose: 40 mg Polyethylene Glycol (Miralax (For Daily Use) -) 17 gm PO DAILY [facility] Last Admin: 03/28/19 09:21 Dose: Not Given 68 year old male with pmhx of htn, bret requiring HD, DM, COPD, HLD, PVD with femoral stents, methadone dependence and lung cancer who presents to the ER with edema and shortness of breath. 1. CKD/BRET in setting of HF 2. Congestive heart failure 3. DM 4. COPD 5. Chronic anemia Renal function continues to improve with diuresis clinically improving as well as edema has resolved Would continue Lasix 100mg IV BID for now and plan to convert to oral diuretics tomorrow there is no acute indication for [employer] at thist corie s/p Epogen for anemia Continue Labetalol, Nifedipine for hypertensoin would withhold any LUKE/ARB untril pt is off IV diuretics discharge planning as per primary once pt is off IV diuretics Thank you Dariusz Iniguez DO
[2019-03-28] MEDS: INSULIN (LEVEMIR) 100 UNITS/ML UNITS SQ SCH (21:49)
[2019-03-28] MEDS: ATORVASTATIN CA 20 MG TABLET (FP) PO SCH (21:49)
[2019-03-29] MEDS ORDERED: METHADONE HCL 10 MG TABLET ONE (05:25)
[2019-03-29] MEDS ORDERED: METHADONE HCL 40 MG DISPERSABLE TABLET ONE (05:25)
[2019-03-29] MEDS: METHADONE 40 MG, METHADONE 20 MG PO SCH (05:49)
[2019-03-29] MEDS: FUROSEMIDE 100 MG/10 ML INJECTABLE VIAL IVPUSH SCH ×2 (05:49→14:04)
[2019-03-29] MEDS: INSULIN SLIDING SCALE (NOVOLOG) 1 VIAL SQ SCH ×2 (06:02→17:06)
[2019-03-29] MEDS: CALCIUM ACETATE 667 MG CAPSULE (FP) PO SCH ×3 (08:26→17:05)
--- NOTE | 2019-03-29 09:11 | PN ---
Progress Note (short form) - Note Progress Note: Pt seen/ examined chart is reviewed feels better denies cp Dysnea improving. Vital Signs Temp 97.5 F L 03/29/19 06:00 Pulse 65 03/29/19 06:00 Resp 20 03/29/19 06:00 BP 161/81 03/29/19 06:00 Pulse Ox 97 03/28/19 21:00 Intake & Output 03/28/19 03/28/19 03/29/19 11:59 23:59 11:59 Intake Total 570 900 180 Balance 570 900 180 Weight 173 lb 171 lb 3.2 oz Intake: IV 20 10 10 RFA #22 03/26 20 10 10 IVPB 50 50 50 Oral 500 840 120 Other: Voiding Method Toilet Toilet Toilet # Unmeasured Voids Void 2 1 Bowel Movement Yes # Bowel Movements 1 Weight Measurement Method Standing Scale Standing Scale Active Medications Acetaminophen (Tylenol -) 650 mg PO Q4H PRN PRN Reason: PAIN LEVEL 1-5 Aspirin (Ecotrin -) 81 mg PO DAILY [facility] Last Admin: 03/28/19 09:20 Dose: 81 mg Atorvastatin Calcium (Lipitor -) 20 mg PO HS [facility] Last Admin: 03/28/19 21:49 Dose: 20 mg Calcium Acetate (Phoslo -) 667 mg PO TIDCM [facility] Last Admin: 03/29/19 08:26 Dose: 667 mg Clopidogrel Bisulfate (Plavix -) 75 mg PO DAILY [facility] Last Admin: 03/28/19 09:20 Dose: 75 mg Enoxaparin Sodium (Lovenox -) 30 mg SQ DAILY [facility] Last Admin: 03/28/19 09:19 Dose: 30 mg Furosemide (Lasix Injection -) 100 mg IVPUSH BID@0600,1400 [facility] Last Admin: 03/29/19 05:49 Dose: 100 mg Insulin Aspart (Novolog Vial Sliding Scale -) [facility]; Protocol Last Admin: 03/29/19 06:02 Dose: Not Given Insulin Detemir (Levemir Vial) 15 units SQ [facility] Last Admin: 03/28/19 21:49 Dose: 15 units Isosorbide Mononitrate (Imdur -) 60 mg PO DAILY [facility] Last Admin: 03/28/19 09:20 Dose: 60 mg Labetalol HCl (Normodyne -) 400 mg PO BID [facility] Last Admin: 12/19/19 21:49 Dose: 400 mg Methadone HCl 40 mg/ Methadone (HCl 20 mg) 60 mg PO DAILY@0600 [facility] Last Admin: 03/29/19 05:49 Dose: 60 mg Nifedipine (Procardia Xl -) 90 mg PO DAILY [facility] Last Admin: 03/28/19 09:20 Dose: 90 mg Pantoprazole Sodium (Protonix -) 40 mg PO DAILY [facility] Last Admin: 03/28/19 09:20 Dose: 40 mg Polyethylene Glycol (Miralax (For Daily Use) -) 17 gm PO DAILY [facility] Last Admin: 03/28/19 09:21 Dose: Not Given CBC,CMP WBC 7.3 K/mm3 (4.0-10.0) 03/26/19 06:10 RBC 3.06 M/mm3 (4.00-5.60) L 03/26/19 06:10 Hgb 9.2 GM/dL (11.7-16.9) L 03/26/19 06:10 Hct 27.5 % (35.4-49) L 03/26/19 06:10 MCV 89.8 fl (80-96) 03/26/19 06:10 MCH 30.2 pg (25.7-33.7) 03/26/19 06:10 MCHC 33.6 g/dl (32.0-35.9) 03/26/19 06:10 RDW 16.1 % (11.9-15.9) H 03/26/19 06:10 Plt Count 221 K/MM3 (134-434) 03/26/19 06:10 MPV 8.4 fl (7.5-11.1) 03/26/19 06:10 Absolute Neuts (auto) 5.0 K/mm3 (1.5-8.0) 03/26/19 06:10 Neutrophils % 69.3 % (42.8-82.8) 03/26/19 06:10 Lymphocytes % 18.9 % (8-40) 03/26/19 06:10 Monocytes % 8.0 % (3.8-10.2) 03/26/19 06:10 Eosinophils % 2.9 % (0-4.5) 03/26/19 06:10 Basophils % 0.9 % (0-2.0) 03/26/19 06:10 Nucleated RBC % 0 % (0-0) 03/26/19 06:10 Sodium 140 mmol/L (136-145) 03/28/19 06:13 Potassium 4.1 mmol/L (3.5-5.1) 03/28/19 06:13 Chloride 101 mmol/L (98-107) 03/28/19 06:13 Carbon Dioxide 33 mmol/L (21-32) H 03/28/19 06:13 Anion Gap 6 MMOL/L (8-16) L 03/28/19 06:13 BUN 78.0 mg/dL (7-18) H 03/28/19 06:13 Creatinine 2.5 mg/dL (0.55-1.3) H 03/28/19 06:13 Est GFR (CKD-EPI)AfAm 29.06 03/28/19 06:13 Est GFR (CKD-EPI)NonAf 25.07 03/28/19 06:13 POC Glucometer 72 UNITS (80-120) 03/29/19 05:50 Random Glucose 101 mg/dL (74-106) 03/28/19 06:13 Hemoglobin A1c % 7.2 % (4.2-6.3) H 03/23/19 05:48 Calcium 8.2 mg/dL (8.5-10.1) L 03/28/19 06:13 Phosphorus 3.7 mg/dL (2.5-4.9) 03/28/19 06:13 Magnesium 2.3 mg/dL (1.8-2.4) 03/28/19 06:13 Iron 50 ug/dL (50-175) 03/26/19 06:10 TIBC 235 ug/dL (250-450) L 03/26/19 06:10 Iron Saturation 21 % (17.5-39) 03/26/19 06:10 Unsaturated IBC 185 ug/dL (200-275) L 03/26/19 06:10 Ferritin 318.8 ng/ml (8-388) 03/26/19 06:10 Total Bilirubin 0.3 mg/dL (0.2-1) 03/24/19 05:55 AST 15 U/L (15-37) 03/24/19 05:55 ALT 22 U/L (13-61) 03/24/19 05:55 Alkaline Phosphatase 116 U/L (45-117) 03/24/19 05:55 Creatine Kinase 183 U/L (26-308) 03/22/19 14:10 Creatine Kinase Index 3.3 % (0.0-5.0) 03/22/19 14:10 CK-MB (CK-2) 6.1 ng/mL (0.5-3.6) H 03/22/19 14:10 Troponin I 0.52 ng/ml (0.00-0.05) H 03/23/19 05:48 B-Natriuretic Peptide 21498.4 pg/ml (5-125) H 03/22/19 14:10 Total Protein 6.4 g/dl (6.4-8.2) 03/24/19 05:55 Albumin 3.3 g/dl (3.4-5.0) L 03/24/19 05:55 Triglycerides 97 mg/dL (0-150) 03/23/19 05:48 Cholesterol 140 mg/dL (50-200) 03/23/19 05:48 Total LDL Cholesterol 67 mg/dL (5-100) 03/23/19 05:48 HDL Cholesterol 49 mg/dL (40-60) 03/23/19 05:48 TSH 2.01 uIU/ml (0.358-3.74) D 03/23/19 05:48 CBC, BMP 03/26/19 06:10 03/28/19 06:13 ct chest -- reviewed -- pleural effusion/ mediastinal adenopathy. Physical Exam. Awake/ comfortable S1 S2 RRR Lungs-- decreased breath sounds at bases Abd-soft, NT edema trace PLAN Better Lasix BID weight- monitor monitor renal function OOB Monitor Bgm Will follow Problem List - Problems (1) CHF exacerbation Code(s): I50.9 - HEART FAILURE, UNSPECIFIED Qualifiers: (2) CKD (chronic kidney disease) Code(s): N18.9 - CHRONIC KIDNEY DISEASE, UNSPECIFIED (3) Elevated troponin I level Code(s): R79.89 - OTHER SPECIFIED ABNORMAL FINDINGS OF BLOOD CHEMISTRY (4) Diastolic CHF Code(s): I50.30 - UNSPECIFIED DIASTOLIC (CONGESTIVE) HEART FAILURE (5) History of lung cancer Code(s): Z85.118 - PERSONAL HISTORY OF MALIGNANT NEOPLASM OF BRONCHUS AND LUNG (6) History of substance abuse Code(s): F19.11 - OTHER PSYCHOACTIVE SUBSTANCE ABUSE, IN REMISSION (7) Status post lung surgery Code(s): Z98.890 - OTHER SPECIFIED POSTPROCEDURAL STATES (8) Diabetes Code(s): E11.9 - TYPE 2 DIABETES MELLITUS WITHOUT COMPLICATIONS Qualifiers: Diabetes mellitus type: type 2 Chronic kidney disease stage: on chronic dialysis
[2019-03-29] MEDS: ASPIRIN COATED 81 MG TABLET.EC PO SCH (09:35)
[2019-03-29] MEDS: NIFEdipine E.R. 90 MG TABLET (FP) PO SCH (09:36)
[2019-03-29] MEDS: CLOPIDOGREL BISULFATE 75 MG TABLET (FP) PO SCH (09:36)
[2019-03-29] MEDS: LABETALOL HCL 200 MG TABLET (FP) PO SCH ×2 (09:36→22:42)
[2019-03-29] MEDS: POLYETHYLENE GLYCOL 3350 119 GM BTL PO SCH (09:36)
[2019-03-29] MEDS: ISOSORBIDE MONONITRATE 60 MG TAB.SR.24H (FP) PO SCH (09:36)
[2019-03-29] MEDS: PANTOPRAZOLE 40 MG TABLET (FP) PO SCH (09:36)
[2019-03-29] MEDS: ENOXAPARIN NA (PORCINE) 30 MG/0.3 ML DISP.SYRIN SQ SCH (09:37)
--- NOTE | 2019-03-29 09:53 | PN ---
Progress Note, Physician Chief Complaint: denies CP, SOB, palps History of Present Illness: advanced CKD. CHF Weight down from admission - Current Medication List Current Medications: Active Medications Acetaminophen (Tylenol -) 650 mg PO Q4H PRN PRN Reason: PAIN LEVEL 1-5 Aspirin (Ecotrin -) 81 mg PO DAILY [facility] Last Admin: 03/29/19 09:35 Dose: 81 mg Atorvastatin Calcium (Lipitor -) 20 mg PO HS [facility] Last Admin: 03/28/19 21:49 Dose: 20 mg Calcium Acetate (Phoslo -) 667 mg PO TIDCM REPL[facility] Last Admin: 03/29/19 08:26 Dose: 667 mg Clopidogrel Bisulfate (Plavix -) 75 mg PO DAILY [facility] Last Admin: 03/29/19 09:36 Dose: 75 mg Enoxaparin Sodium (Lovenox -) 30 mg SQ DAILY [facility] Last Admin: 03/29/19 09:37 Dose: 30 mg Furosemide (Lasix Injection -) 100 mg IVPUSH BID@0600,1400 [facility] Last Admin: 03/29/19 05:49 Dose: 100 mg Insulin Aspart ([facility] Vial Sliding Scale -) [facility] Protocol Last Admin: 03/29/19 06:02 Dose: Not Given Insulin Detemir (Levemir Vial) [address] [facility] Last Admin: 03/28/19 21:49 Dose: 15 units Isosorbide Mononitrate (Imdur -) 60 mg PO DAILY [facility] Last Admin: 03/29/19 09:36 Dose: 60 mg Labetalol HCl (Normodyne -) 400 mg PO BID [facility] Last Admin: 03/29/19 09:36 Dose: 400 mg Methadone HCl 40 mg/ Methadone (HCl 20 mg) 60 mg PO DAILY@0600 [facility] Last Admin: 03/29/19 05:49 Dose: 60 mg Nifedipine (Procardia Xl -) 90 mg PO DAILY [facility] Last Admin: 03/29/19 09:36 Dose: 90 mg Pantoprazole Sodium (Protonix -) 40 mg PO DAILY [facility] Last Admin: 03/29/19 09:36 Dose: 40 mg Polyethylene Glycol (Miralax (For Daily Use) -) 17 gm PO DAILY [facility] Last Admin: 03/29/19 09:36 Dose: Not Given - Objective Vital Signs: Vital Signs Temperature 98.1 F 03/29/19 09:20 Pulse Rate 62 03/29/19 09:20 Respiratory Rate 19 03/29/19 09:20 Blood Pressure 154/107 H 03/29/19 09:20 O2 Sat by Pulse Oximetry (%) 97 03/28/19 21:00 Constitutional: Yes: No Distress Cardiovascular: Yes: Regular Rate and Rhythm, JVD Respiratory: Yes: CTA Bilaterally Gastrointestinal: Yes: Soft (nt) Edema: Yes Edema: LLE: 1+, RLE: 1+ Neurological: Yes: Alert, Oriented Labs: CBC, BMP 03/26/19 06:10 03/28/19 06:13 - ....Imaging EKG: Image Reviewed Assessment/Plan Assessment/Plan mibi 2015 no ischemia, nl EF echo 09/2018 nl LV function, mild MAC, tr MR, RVSP 32 mmHg echo 10/2018 nl LV function, EF 55-60%, grade II diastolic dysfunction, RV nl, mild MR, mild AR, mod ao root dilatation CXR mod R pleural effusion stable since 10/2018 EKG: sinus,nl intervals no ischemic changes tele: sinus 68M h/o HTN, DM, HLD, PAD s/p femoral stent, prior smoker, R sided lung ca s/p partial resection, ESRD on HD here with sob. acute diastolic chf: -volume overload after recently stopping hd -received lasix 40 iv bid. 03/25 increased lasix to 80 iv bid, 03/26 inc to 100 mg IV BID -Cr improving, weight down, cont lasix 100 mg IV BID; daily BMP monitor renal fx and lytes HTN - cont current meds HLD - cont statin PAD - cont statin, plavix DM - manage per primary CKD - had been on HD, then stopped recently as renal fcn improved - per renal team elevated trop: -borderline trop elevation, flat trend, nl ck, similar to prior baseline values , not c/w acs
--- NOTE | 2019-03-29 11:02 | PN ---
Progress Note (short form) - Note Progress Note: Renal follow up for CKD Seen and examined at the bedside awake and alert feels better still using O2 leg swelling resolved Vital Signs Temperature 98.1 F 03/29/19 09:20 Pulse Rate 62 03/29/19 09:20 Respiratory Rate 19 03/29/19 09:20 Blood Pressure 154/107 H 03/29/19 09:20 O2 Sat by Pulse Oximetry (%) 97 03/28/19 21:00 Intake & Output 03/26/19 03/27/19 03/28/19 03/29/19 23:59 23:59 23:59 23:59 Intake Total 1515 1360 1470 180 Balance 1515 1360 1470 180 Weight 81.647 kg 78.075 kg 78.471 kg 77.655 kg NAD awake and alert RRR Dec BS bilateral lung [place] soft NT/ND no edema in LE CBC, BMP 03/26/19 06:10 03/28/19 06:13 Current Medications Acetaminophen (Tylenol -) 650 mg PO Q4H PRN PRN Reason: PAIN LEVEL 1-5 Aspirin (Ecotrin -) 81 mg PO DAILY [facility] Last Admin: 03/29/19 09:35 Dose: 81 mg Atorvastatin Calcium (Lipitor -) 20 mg PO HS [facility] Last Admin: 03/28/19 21:49 Dose: 20 mg Calcium Acetate (Phoslo -) 667 mg PO TIDCM [facility] Last Admin: 03/29/19 08:26 Dose: 667 mg Clopidogrel Bisulfate (Plavix -) 75 mg PO DAILY [facility] Last Admin: 03/29/19 09:36 Dose: 75 mg Enoxaparin Sodium (Lovenox -) 30 mg SQ DAILY [facility] Last Admin: 03/29/19 09:37 Dose: 30 mg Furosemide (Lasix Injection -) 100 mg IVPUSH BID@0600,1400 [facility] Last Admin: 03/29/19 05:49 Dose: 100 mg Insulin Aspart ([facility] Vial Sliding Scale -) [facility]; Protocol Last Admin: 03/29/19 06:02 Dose: Not Given Insulin Detemir (Levemir Vial) 15 units SQ HS [facility] Last Admin: 03/28/19 21:49 Dose: 15 units Isosorbide Mononitrate (Imdur -) 60 mg PO DAILY [facility] Last Admin: 03/29/19 09:36 Dose: 60 mg Labetalol HCl (Normodyne -) 400 mg PO BID [facility] Last Admin: 03/29/19 09:36 Dose: 400 mg Methadone HCl 40 mg/ Methadone (HCl 20 mg) 60 mg PO DAILY@0600 [facility] Last Admin: 03/29/19 05:49 Dose: 60 mg Nifedipine (Procardia Xl -) 90 mg PO DAILY [facility] Last Admin: 03/29/19 09:36 Dose: 90 mg Pantoprazole Sodium (Protonix -) 40 mg PO DAILY [facility] Last Admin: 03/29/19 09:36 Dose: 40 mg Polyethylene Glycol (Miralax (For Daily Use) -) 17 gm PO DAILY [facility] Last Admin: 03/29/19 09:36 Dose: Not Given 68 year old male with pmhx of htn, bret requiring HD, DM, COPD, HLD, PVD with femoral stents, methadone dependence and lung cancer who presents to the ER with edema and shortness of breath. 1. CKD/BRET in setting of HF 2. Congestive heart failure 3. DM 4. COPD 5. Chronic anemia Renal function improved and stable clinically improving as well as edema has resolved can convert to oral diuretic (Torsemide 80mg BID) when ok with cardiolog there is no acute indication for [employer]OUN[employer]ER at This time s/p Epogen for anemia Continue Labetalol, Nifedipine for hypertensoin would withhold any LUEK/ARB untril pt is off IV diuretics discharge planning as per primary once pt is off IV diuretics Thank you Dariusz Iniguez DO
[2019-03-29] MEDS: INSULIN (LEVEMIR) 100 UNITS/ML UNITS SQ SCH (22:42)
[2019-03-29] MEDS: ATORVASTATIN CA 20 MG TABLET (FP) PO SCH (22:42)
[2019-03-30] MEDS ORDERED: METHADONE HCL 10 MG TABLET ONE (05:11)
[2019-03-30] MEDS ORDERED: METHADONE HCL 40 MG DISPERSABLE TABLET ONE (05:11)
[2019-03-30] MEDS: METHADONE 40 MG, METHADONE 20 MG PO SCH (05:39)
[2019-03-30] MEDS: FUROSEMIDE 100 MG/10 ML INJECTABLE VIAL IVPUSH SCH ×2 (05:39→14:39)
--- NOTE | 2019-03-30 07:04 | PN ---
Progress Note, Physician Chief Complaint: sob History of Present Illness: no sob during the day, ambulating. feels sob at night in bed last night no cp, palp, syncope no cigs - Current Medication List Current Medications: Active Medications Acetaminophen (Tylenol -) 650 mg PO Q4H PRN PRN Reason: PAIN LEVEL 1-5 Aspirin (Ecotrin -) 81 mg PO DAILY [facility] Last Admin: 03/29/19 09:35 Dose: 81 mg Atorvastatin Calcium (Lipitor -) 20 mg PO HS [facility] Last Admin: 03/29/19 22:42 Dose: 20 mg Calcium Acetate (Phoslo -) 667 mg PO TIDCM [facility] Last Admin: 03/29/19 17:05 Dose: 667 mg Clopidogrel Bisulfate (Plavix -) 75 mg PO DAILY [facility] Last Admin: 03/29/19 09:36 Dose: 75 mg Enoxaparin Sodium (Lovenox -) 30 mg SQ DAILY [facility] Last Admin: 03/29/19 09:37 Dose: 30 mg Furosemide (Lasix Injection -) 100 mg IVPUSH BID@0600,1400 [facility] Last Admin: 03/30/19 05:39 Dose: 100 mg Insulin Aspart ([facility]olog Vial Sliding Scale -) [facility] Protocol Last Admin: 03/29/19 17:06 Dose: 2 units Insulin Detemir (Levemir Vial) 15 units SQ [facility] Last Admin: 03/29/19 22:42 Dose: Not Given Isosorbide Mononitrate (Imdur -) 60 mg PO DAILY [facility] Last Admin: 03/29/19 09:36 Dose: 60 mg Labetalol HCl (Normodyne -) 400 mg PO BID [facility] Last Admin: 03/29/19 22:42 Dose: 400 mg Methadone HCl 40 mg/ Methadone (HCl 20 mg) 60 mg PO DAILY@0600 [facility] Last Admin: 03/30/19 05:39 Dose: 60 mg Nifedipine (Procardia Xl -) 90 mg PO DAILY [facility] Last Admin: 03/29/19 09:36 Dose: 90 mg Pantoprazole Sodium (Protonix -) 40 mg PO DAILY [facility] Last Admin: 03/29/19 09:36 Dose: 40 mg Polyethylene Glycol (Miralax (For Daily Use) -) 17 gm PO DAILY [facility] Last Admin: 03/29/19 09:36 Dose: Not Given - Objective Vital Signs: Vital Signs Temperature 98.2 F 03/30/19 06:00 Pulse Rate 67 03/30/19 06:00 Respiratory Rate 20 03/30/19 06:00 Blood Pressure 191/80 H 03/30/19 06:00 O2 Sat by Pulse Oximetry (%) 96 03/29/19 21:00 Constitutional: Yes: No Distress, Calm Eyes: No: Sclera Icterus HENT: No: Nasal Congestion Cardiovascular: Yes: Regular Rate and Rhythm, JVD (10 cm (visible left neck)), S1, S2, Other (PMI non diplaced). No: Gallop, Murmur Respiratory: Yes: CTA Bilaterally. No: Accessory Muscle Use, Rales, Wheezes Gastrointestinal: Yes: Normal Bowel Sounds, Soft. No: Tenderness Musculoskeletal: Yes: Other (No kyphosis) Extremities: No: Cold, Cyanosis Edema: No Integumentary: No: Jaundice Neurological: Yes: Alert, Oriented (x3) Psychiatric: No: Agitated Labs: CBC, BMP 03/26/19 06:10 Assessment/Plan echo 10/2018 nl LV function, EF 55-60%, grade II diastolic dysfunction, RV nl, mild MR, mild AR, mod ao root dilatation CXR mod R pleural effusion stable since 10/2018 EKG: sinus,nl intervals no ischemic changes tele: NSR, at times HR down to 49 (while awake, per RN) 68M h/o HTN, DM, HLD, PAD s/p femoral stent, prior smoker, R sided lung ca s/p partial resection, ESRD on HD here with sob. acute diastolic chf: -volume overload after recently stopping hd -lasix has been incrementally titrated from 40 iv bid to 100 mg IV BID. weight trend remains flat and he remains with significant JVD, sob at night ? asthma vs HF/orthopnea. add metolazone test dose 2.5 x 1 today. HTN - target < 130/80 if achievable (severe HFpEF) - not controlled - avoiding RAAS blockers, thiazides given tenuous renal fxn - change nifedipine 90 qam to 60 bid (to help with early AM bp's), add clonidine patch - decr labetalol 400 bid to 300 bid given mild sinus nacho and adding clonidine (if nacho continues, consider changing labetalol to lower dose but tid dosing) HLD - cont statin PAD - cont statin, plavix DM - manage per primary CKD - had been on HD, then stopped recently as renal fcn improved - per renal team elevated trop: -borderline trop elevation, flat trend, nl ck, similar to prior baseline values , not c/w acs
[2019-03-30] MEDS: INSULIN SLIDING SCALE (NOVOLOG) 1 VIAL SQ SCH ×2 (07:53→16:33)
[2019-03-30] MEDS: CALCIUM ACETATE 667 MG CAPSULE (FP) PO SCH ×3 (08:11→16:33)
[2019-03-30] MEDS: NIFEdipine E.R 60 MG TABLET (UD) PO SCH ×2 (08:11→21:27)
[2019-03-30 09:20] LABS: BLOOD UREA NITROGEN 73.2 mg/dL (7-18); CALCIUM 8.2 mg/dL (8.5-10.1); CREATININE 2.4 mg/dL (0.55-1.3); MAGNESIUM 2.3 mg/dL (1.8-2.4); POTASSIUM 3.8 mmol/L (3.5-5.1)
[2019-03-30] MEDS: CLOPIDOGREL BISULFATE 75 MG TABLET (FP) PO SCH (09:37)
[2019-03-30] MEDS: ASPIRIN COATED 81 MG TABLET.EC PO SCH (09:38)
[2019-03-30] MEDS: ISOSORBIDE MONONITRATE 60 MG TAB.SR.24H (FP) PO SCH (09:38)
[2019-03-30] MEDS: PANTOPRAZOLE 40 MG TABLET (FP) PO SCH (09:38)
[2019-03-30] MEDS: POLYETHYLENE GLYCOL 3350 119 GM BTL PO SCH (09:39)
[2019-03-30] MEDS ORDERED: cloNIDine-TTS 0.1 MG/24 HRS PATCH.TDWK TD SCH (10:00)
[2019-03-30] MEDS: LABETALOL HCL 200 MG TABLET (FP) PO SCH (10:02)
[2019-03-30] MEDS: ENOXAPARIN NA (PORCINE) 30 MG/0.3 ML DISP.SYRIN SQ SCH (11:22)
[2019-03-30] MEDS ORDERED: METOLAZONE 2.5 MG TABLET (FP) PO ONE (11:48)
--- NOTE | 2019-03-30 13:31 | PN ---
Progress Note (short form) - Note Progress Note: felt pressure in chest at night Vital Signs - 24 hr 03/29/19 03/29/19 03/29/19 18:03 21:00 22:00 Temperature 98.4 F 98.1 F Pulse Rate 59 L 75 Respiratory 19 18 18 Rate Blood Pressure 149/56 L 186/86 H O2 Sat by Pulse 96 Oximetry (%) 03/30/19 03/30/19 03/30/19 02:00 06:00 08:00 Temperature 98.4 F 98.2 F 97.6 F Pulse Rate 70 67 59 L Respiratory 18 20 20 Rate Blood Pressure 179/79 H 191/80 H 161/67 O2 Sat by Pulse Oximetry (%) 03/30/19 03/30/19 09:00 10:00 Temperature Pulse Rate 55 L Respiratory 20 Rate Blood Pressure 146/71 O2 Sat by Pulse 96 Oximetry (%) Current Medications Generic Name Dose Route Start Last Admin Trade Name Freq PRN Reason Stop Dose Admin Acetaminophen 650 mg 03/22/19 18:09 Tylenol - PO Q4H PRN PAIN LEVEL 1-5 Aspirin 81 mg 03/23/19 10:00 03/30/19 09:38 Ecotrin - PO 81 mg DAILY [facility] Administration Atorvastatin Calcium 20 mg 03/22/19 22:00 03/29/19 22:42 Lipitor - PO 20 mg HS [facility] Administration Calcium Acetate 667 mg 03/23/19 08:00 03/30/19 11:22 Phoslo - PO 667 mg TIDCM [facility] Administration Clonidine HCl 0.1 mg 03/30/19 10:00 03/30/19 09:37 Catapres Tts Patch - TD 0.1 mg Q7D@1000 [facility] Administration Clopidogrel Bisulfate 75 mg 03/23/19 10:00 03/30/19 09:37 Plavix - PO 75 mg DAILY [facility] Administration Enoxaparin Sodium 30 mg 03/30/19 11:15 03/30/19 11:22 Lovenox - SQ 30 mg DAILY [facility] Administration Furosemide 100 mg 03/26/19 14:00 03/30/19 05:39 Lasix Injection - IVPUSH 100 mg BID@0600,1400 [facility] Administration Insulin Aspart 1 vial 03/23/19 07:00 03/30/19 07:53 Novolog Vial Sliding Scale - SQ Not Given BIDAC [facility] Protocol Insulin Detemir 15 units 03/28/19 11:30 03/29/19 22:42 Levemir Vial SQ Not Given HS [facility] Isosorbide Mononitrate 60 mg 03/23/19 10:00 03/30/19 09:38 Imdur - PO 60 mg DAILY [facility] Administration Labetalol HCl 300 mg 03/30/19 11:43 Normodyne - PO BID [facility] Methadone HCl 40 mg/ Methadone 60 mg 03/25/19 09:45 03/30/19 05:39 HCl 20 mg PO 60 mg DAILY@0600 [facility] Administration Nifedipine 60 mg 03/30/19 08:15 03/30/19 08:11 Procardia Xl - PO 60 mg BID [facility] Administration Pantoprazole Sodium 40 mg 03/23/19 10:00 03/30/19 09:38 Protonix - PO 40 mg DAILY [facility] Administration Polyethylene Glycol 17 gm 03/26/19 11:15 03/30/19 09:39 Miralax (For Daily Use) - PO Not Given DAILY [facility] Intake & Output 03/27/19 03/28/19 03/29/19 03/30/19 23:59 23:59 23:59 23:59 Intake Total 1360 1470 850 580 Balance 1360 1470 850 580 Weight 172 lb 2 oz 173 lb 171 lb 3.2 oz 168 lb Laboratory Results - last 24 hr 03/29/19 03/29/19 03/30/19 17:03 22:40 05:36 Sodium Potassium Chloride Carbon Dioxide Anion Gap BUN Creatinine Est GFR (CKD-EPI)AfAm Est GFR (CKD-EPI)NonAf POC Glucometer 159 146 147 Random Glucose Calcium Magnesium 03/30/19 06:05 Sodium 141 Potassium 3.8 Chloride 101 Carbon Dioxide 31 Anion Gap 8 BUN 73.2 H Creatinine 2.4 H Est GFR (CKD-EPI)AfAm 30.53 Est GFR (CKD-EPI)NonAf 26.34 POC Glucometer Random Glucose 174 H Calcium 8.2 L Magnesium 2.3 S1 S2 RRR Lungs-- decreased breath sounds Abd-soft, NT edema trace PLAN will be getting metalozine prior to Lasix weight decreased ct chest noted monitor renal function -- better today OOB
[2019-03-30] MEDS ORDERED: INSULIN SLIDING SCALE (NOVOLOG) 1 VIAL SQ ONE (16:29)
--- NOTE | 2019-03-30 17:56 | PN ---
Progress Note (short form) - Note Progress Note: 1. CKD/BRET in setting of HF 2. Congestive heart failure 3. DM 4. COPD 5. Chronic anemia Current Medications Acetaminophen (Tylenol -) 650 mg PO Q4H PRN PRN Reason: PAIN LEVEL 1-5 Aspirin (Ecotrin -) 81 mg PO DAILY [facility] Last Admin: 03/30/19 09:38 Dose: 81 mg Atorvastatin Calcium (Lipitor -) 20 mg PO HS [facility] Last Admin: 03/29/19 22:42 Dose: 20 mg Calcium Acetate (Phoslo -) 667 mg PO TIDCM [facility] Last Admin: 03/30/19 16:33 Dose: 667 mg Clonidine HCl (Catapres Tts Patch -) 0.1 mg TD Q7D@1000 [facility] Last Admin: 03/30/19 09:37 Dose: 0.1 mg Clopidogrel Bisulfate (Plavix -) 75 mg PO DAILY [facility] Last Admin: 03/30/19 09:37 Dose: 75 mg Enoxaparin Sodium (Lovenox -) 30 mg SQ DAILY [facility] Last Admin: 03/30/19 11:22 Dose: 30 mg Furosemide (Lasix Injection -) 100 mg IVPUSH BID@0600,1400 [facility] Last Admin: 03/30/19 14:39 Dose: 100 mg Insulin Aspart (Novolog Vial Sliding Scale -) [facility]; Protocol Last Admin: 03/30/19 16:33 Dose: 2 units Insulin Detemir (Levemir Vial) 15 units [address] [facility] Last Admin: 03/29/19 22:42 Dose: Not Given Isosorbide Mononitrate (Imdur -) 60 mg PO DAILY [facility] Last Admin: 03/30/19 09:38 Dose: 60 mg Labetalol HCl (Normodyne -) 300 mg PO BID [facility] Methadone HCl 40 mg/ Methadone (HCl 20 mg) 60 mg PO DAILY@0600 [facility] Last Admin: 03/30/19 05:39 Dose: 60 mg Nifedipine (Procardia Xl -) 60 mg PO BID [facility] Last Admin: 03/30/19 08:11 Dose: 60 mg Pantoprazole Sodium (Protonix -) 40 mg PO DAILY [facility] Last Admin: 03/30/19 09:38 Dose: 40 mg Polyethylene Glycol (Miralax (For Daily Use) -) 17 gm PO DAILY [facility] Last Admin: 03/30/19 09:39 Dose: Not Given Last Vital Signs Temp Pulse Resp BP Pulse Ox 97.7 F 53 L 17 129/55 L 96 03/30/19 14:00 03/30/19 14:00 03/30/19 14:00 03/30/19 14:00 03/30/19 09:00 Lungs clear Heart reg Abd soft nontender Ext no edema CBC, BMP 03/26/19 06:10 03/30/19 06:05 IMP s/p chf CKD on IV lasix Plan-switch to po when maximally diuresced
[2019-03-30] MEDS: ATORVASTATIN CA 20 MG TABLET (FP) PO SCH (21:26)
[2019-03-30] MEDS: INSULIN (LEVEMIR) 100 UNITS/ML UNITS SQ SCH (21:26)
[2019-03-30] MEDS: LABETALOL HCL 100 MG TABLET (FP) PO SCH (21:27)
[2019-03-31] MEDS ORDERED: METHADONE HCL 40 MG DISPERSABLE TABLET ONE (06:18)
[2019-03-31] MEDS ORDERED: METHADONE HCL 10 MG TABLET ONE (06:18)
[2019-03-31] MEDS: FUROSEMIDE 100 MG/10 ML INJECTABLE VIAL IVPUSH SCH ×2 (06:27→13:30)
[2019-03-31] MEDS: INSULIN SLIDING SCALE (NOVOLOG) 1 VIAL SQ SCH ×2 (06:28→17:19)
[2019-03-31] MEDS: METHADONE 40 MG, METHADONE 20 MG PO SCH (06:28)
[2019-03-31 07:40] LABS: BLOOD UREA NITROGEN 78.7 mg/dL (7-18); CALCIUM 8.6 mg/dL (8.5-10.1); CREATININE 2.7 mg/dL (0.55-1.3); POTASSIUM 3.5 mmol/L (3.5-5.1)
--- NOTE | 2019-03-31 08:49 | PN ---
Progress Note, Physician Chief Complaint: sob History of Present Illness: urinated a lot more yest s/p metolazone orthopnea last night resolved--"much better" no cp, palp, leg swelling - Current Medication List Current Medications: Active Medications Acetaminophen (Tylenol -) 650 mg PO Q4H PRN PRN Reason: PAIN LEVEL 1-5 Aspirin (Ecotrin -) 81 mg PO DAILY [facility] Last Admin: 03/30/19 09:38 Dose: 81 mg Atorvastatin Calcium (Lipitor -) 20 mg PO [facility] Last Admin: 03/30/19 21:26 Dose: 20 mg Calcium Acetate (Phoslo -) 667 mg PO TIDCM [facility] Last Admin: 03/30/19 16:33 Dose: 667 mg Clonidine HCl (Catapres Tts Patch -) 0.1 mg TD Q7D@1000 [facility] Last Admin: 03/30/19 09:37 Dose: 0.1 mg Clopidogrel Bisulfate (Plavix -) 75 mg PO DAILY [facility] Last Admin: 03/30/19 09:37 Dose: 75 mg Enoxaparin Sodium (Lovenox -) 30 mg SQ DAILY [facility] Last Admin: 03/30/19 11:22 Dose: 30 mg Furosemide (Lasix Injection -) 100 mg IVPUSH BID@0600,1400 [facility] Last Admin: 03/31/19 06:27 Dose: 100 mg Insulin Aspart (Novolog Vial Sliding Scale -) [facility]; Protocol Last Admin: 03/31/19 06:28 Dose: 2 units Insulin Detemir (Levemir Vial) 15 units SQ [facility] Last Admin: 03/30/19 21:26 Dose: Not Given Isosorbide Mononitrate (Imdur -) 60 mg PO DAILY [facility] Last Admin: 03/30/19 09:38 Dose: 60 mg Labetalol HCl (Normodyne -) 300 mg PO BID [facility] Last Admin: 03/30/19 21:27 Dose: 300 mg Methadone HCl 40 mg/ Methadone (HCl 20 mg) 60 mg PO DAILY@0600 [facility] Last Admin: 03/31/19 06:28 Dose: 60 mg Nifedipine (Procardia Xl -) 60 mg PO BID [facility] Last Admin: 03/30/19 21:27 Dose: 60 mg Pantoprazole Sodium (Protonix -) 40 mg PO DAILY [facility] Last Admin: 03/30/19 09:38 Dose: 40 mg Polyethylene Glycol (Miralax (For Daily Use) -) 17 gm PO DAILY [facility] Last Admin: 03/30/19 09:39 Dose: Not Given - Objective Vital Signs: Vital Signs Temperature 97.5 F L 03/31/19 06:00 Pulse Rate 60 03/31/19 06:00 Respiratory Rate 18 03/31/19 06:00 Blood Pressure 148/80 03/31/19 06:00 O2 Sat by Pulse Oximetry (%) 98 03/30/19 21:00 Constitutional: Yes: Well Nourished, No Distress, Calm Cardiovascular: Yes: Regular Rate and Rhythm, JVD, S1, S2. No: Gallop, Murmur Respiratory: Yes: Regular, CTA Bilaterally. No: Accessory Muscle Use, Rales, Wheezes Extremities: No: Cold Edema: No Neurological: Yes: Alert, Oriented Psychiatric: No: Agitated Labs: CBC, BMP 03/26/19 06:10 03/31/19 06:35 Assessment/Plan echo 10/2018 nl LV function, EF 55-60%, grade II diastolic dysfunction, RV nl, mild MR, mild AR, mod ao root dilatation CXR mod R pleural effusion stable since 10/2018 EKG: sinus,nl intervals no ischemic changes tele: NSR, no more bradys < 50 bpm 68M h/o HTN, DM, HLD, PAD s/p femoral stent, prior smoker, R sided lung ca s/p partial resection, ESRD on HD here with sob. acute diastolic chf: -volume overload after recently stopping hd -lasix has been incrementally titrated from 40 iv bid to 100 mg IV BID. weight trend improving on current dose. remains with significant JVD, sob at night ? asthma vs HF/orthopnea. s/p test dose metolazone 2.5 on 03/30. -wt down slightly, remains above prior discharge wt 09/26 (159 lbs). bun stable, creat up slightly. repeat metolazone 2.5 x 1 today. -reassess tomorrow--if wt continues to come down will plan discharge on torsemide 100 po bid HTN - target < 130/80 if achievable (severe HFpEF) - not controlled - avoiding RAAS blockers, thiazides given tenuous renal fxn - changed nifedipine 90 qam to 60 bid (to help with early AM bp's), add clonidine patch. decr'd labetalol 400 bid to 300 bid given mild sinus nacho and adding clonidine (if nacho continues, consider changing labetalol to lower dose but tid dosing) - bp improved, not at targets, same meds for now, observe trend HLD - cont statin PAD - cont statin, plavix DM - manage per primary CKD - had been on HD, then stopped recently as renal fcn improved - per renal team elevated trop: -borderline trop elevation, flat trend, nl ck, similar to prior baseline values , not c/w acs
[2019-03-31] MEDS: ISOSORBIDE MONONITRATE 60 MG TAB.SR.24H (FP) PO SCH (10:40)
[2019-03-31] MEDS: PANTOPRAZOLE 40 MG TABLET (FP) PO SCH (10:40)
[2019-03-31] MEDS: CALCIUM ACETATE 667 MG CAPSULE (FP) PO SCH ×3 (10:41→17:20)
[2019-03-31] MEDS: CLOPIDOGREL BISULFATE 75 MG TABLET (FP) PO SCH (10:41)
[2019-03-31] MEDS: LABETALOL HCL 100 MG TABLET (FP) PO SCH ×2 (10:41→21:04)
[2019-03-31] MEDS: NIFEdipine E.R 60 MG TABLET (UD) PO SCH ×2 (10:41→21:04)
[2019-03-31] MEDS: POLYETHYLENE GLYCOL 3350 119 GM BTL PO SCH (10:42)
[2019-03-31] MEDS: ENOXAPARIN NA (PORCINE) 30 MG/0.3 ML DISP.SYRIN SQ SCH (10:42)
[2019-03-31] MEDS: ASPIRIN COATED 81 MG TABLET.EC PO SCH (10:42)
--- NOTE | 2019-03-31 11:39 | PN ---
Progress Note (short form) - Note Progress Note: no sob daughter at bedside Vital Signs - 24 hr 03/30/19 03/30/19 03/31/19 21:00 22:00 02:00 Temperature 98.1 F 98.7 F Pulse Rate 66 61 Respiratory 18 18 Rate Blood Pressure 159/69 143/70 O2 Sat by Pulse 98 Oximetry (%) 03/31/19 03/31/19 03/31/19 06:00 09:00 13:45 Temperature 97.5 F L 98.2 F 98.2 F Pulse Rate 60 59 L 55 L Respiratory 18 15 16 Rate Blood Pressure 148/80 119/84 135/51 L O2 Sat by Pulse 99 Oximetry (%) Current Medications Generic Name Dose Route Start Last Admin Trade Name Freq PRN Reason Stop Dose Admin Acetaminophen 650 mg 03/22/19 18:09 Tylenol - PO Q4H PRN PAIN LEVEL 1-5 Aspirin 81 mg 03/23/19 10:00 03/31/19 10:42 Ecotrin - PO 81 mg DAILY [facility] Administration Atorvastatin Calcium 20 mg 03/22/19 22:00 03/30/19 21:26 Lipitor - PO 20 mg HS [facility] Administration Calcium Acetate 667 mg 03/23/19 08:00 03/31/19 17:20 Phoslo - PO 667 mg TIDCM [facility] Administration Clonidine HCl 0.1 mg 03/30/19 10:00 03/30/19 09:37 Catapres Tts Patch - TD 0.1 mg Q7D@1000 [facility] Administration Clopidogrel Bisulfate 75 mg 03/23/19 10:00 03/31/19 10:41 Plavix - PO 75 mg DAILY [facility] Administration Enoxaparin Sodium 30 mg 03/30/19 11:15 03/31/19 10:42 Lovenox - SQ 30 mg DAILY [facility] Administration Furosemide 100 mg 03/26/19 14:00 03/31/19 13:30 Lasix Injection - IVPUSH 100 mg BID@0600,1400 [facility] Administration Insulin Aspart 1 vial 03/23/19 07:00 03/31/19 17:19 Novolog Vial Sliding Scale - SQ 4 units BIDAC [facility] Administration Protocol Insulin Detemir 15 units 03/28/19 11:30 03/30/19 21:26 Levemir Vial SQ Not Given HS [facility] Isosorbide Mononitrate 60 mg 03/23/19 10:00 03/31/19 10:40 Imdur - PO 60 mg DAILY [facility] Administration Labetalol HCl 300 mg 03/30/19 11:43 03/31/19 10:41 Normodyne - PO 300 mg BID [facility] Administration Methadone HCl 40 mg/ Methadone 60 mg 03/25/19 09:45 03/31/19 06:28 HCl 20 mg PO 60 mg DAILY@0600 [facility] Administration Nifedipine 60 mg 03/30/19 08:15 03/31/19 10:41 Procardia Xl - PO 60 mg BID [facility] Administration Pantoprazole Sodium 40 mg 03/23/19 10:00 03/31/19 10:40 Protonix - PO 40 mg DAILY [facility] Administration Polyethylene Glycol 17 gm 03/26/19 11:15 03/31/19 10:42 Miralax (For Daily Use) - PO Not Given DAILY [facility] Laboratory Results - last 24 hr 03/30/19 03/31/19 03/31/19 21:24 06:25 06:35 Sodium 139 Potassium 3.5 Chloride 98 Carbon Dioxide 33 H Anion Gap 8 BUN 78.7 H Creatinine 2.7 H Est GFR (CKD-EPI)AfAm 26.48 Est GFR (CKD-EPI)NonAf 22.85 POC Glucometer 158 166 Random Glucose 177 H Calcium 8.6 03/31/19 17:16 Sodium Potassium Chloride Carbon Dioxide Anion Gap BUN Creatinine Est GFR (CKD-EPI)AfAm Est GFR (CKD-EPI)NonAf POC Glucometer 225 Random Glucose Calcium Intake & Output 03/28/19 03/29/19 03/30/19 03/31/19 23:59 23:59 23:59 23:59 Intake Total 3226 761 4759 1450 Balance 4839 190 2926 1450 Weight 173 lb 171 lb 3.2 oz 168 lb 167 lb S1 S2 RRR Lungs-- decreased breath sounds Abd-soft, NT edema trace PLAN will be getting metalozine prior to Lasix today as well good response yesterday weight decreased ct chest noted monitor renal function -- stable OOB
[2019-03-31] MEDS ORDERED: METOLAZONE 2.5 MG TABLET (FP) PO ONE (13:30)
--- NOTE | 2019-03-31 20:50 | PN ---
Progress Note (short form) - Note Progress Note: 1. CKD/BRET in setting of HF 2. Congestive heart failure 3. DM 4. COPD 5. Chronic anemia Current Medications Acetaminophen (Tylenol -) 650 mg PO Q4H PRN PRN Reason: PAIN LEVEL 1-5 Aspirin (Ecotrin -) 81 mg PO DAILY [facility] Last Admin: 03/31/19 10:42 Dose: 81 mg Atorvastatin Calcium (Lipitor -) 20 mg PO HS [facility] Last Admin: 03/30/19 21:26 Dose: 20 mg Calcium Acetate (Phoslo -) 667 mg PO TIDCM [facility] Last Admin: 03/31/19 17:20 Dose: 667 mg Clonidine HCl (Catapres Tts Patch -) 0.1 mg TD Q7D@1000 [facility] Last Admin: 03/30/19 09:37 Dose: 0.1 mg Clopidogrel Bisulfate (Plavix -) 75 mg PO DAILY [facility] Last Admin: 03/31/19 10:41 Dose: 75 mg Enoxaparin Sodium (Lovenox -) 30 mg SQ DAILY [facility] Last Admin: 03/31/19 10:42 Dose: 30 mg Furosemide (Lasix Injection -) 100 mg IVPUSH BID@0600,1400 [facility] Last Admin: 03/31/19 13:30 Dose: 100 mg Insulin Aspart (Novolog Vial Sliding Scale -) [facility] Protocol Last Admin: 03/31/19 17:19 Dose: 4 units Insulin Detemir (Levemir Vial) 15 units SQ [facility] Last Admin: 03/30/19 21:26 Dose: Not Given Isosorbide Mononitrate (Imdur -) 60 mg PO DAILY [facility] Last Admin: 03/31/19 10:40 Dose: 60 mg Labetalol HCl (Normodyne -) 300 mg PO BID [facility] Last Admin: 03/31/19 10:41 Dose: 300 mg Methadone HCl 40 mg/ Methadone (HCl 20 mg) 60 mg PO DAILY@0600 [facility] Last Admin: 03/31/19 06:28 Dose: 60 mg Nifedipine (Procardia Xl -) 60 mg PO BID [facility] Last Admin: 03/31/19 10:41 Dose: 60 mg Pantoprazole Sodium (Protonix -) 40 mg PO DAILY [facility] Last Admin: 03/31/19 10:40 Dose: 40 mg Polyethylene Glycol (Miralax (For Daily Use) -) 17 gm PO DAILY [facility] Last Admin: 03/31/19 10:42 Dose: Not Given Last Vital Signs Temp Pulse Resp BP Pulse Ox 98.0 F 59 L 14 125/66 92 L 03/31/19 17:00 03/31/19 17:00 03/31/19 17:00 03/31/19 17:00 03/31/19 20:07 Lungs clear Heart reg Abd soft nontender Ext no edema [facility] 03/31/19 06:35 CBC, [facility] 03/26/19 06:10 03/30/19 06:05 IMP increasing Azotemia s/p chf CKD on IV lasix Plan-hold or decrease diuresis if renal function worsens
[2019-03-31] MEDS: ATORVASTATIN CA 20 MG TABLET (FP) PO SCH (21:04)
[2019-03-31] MEDS: INSULIN (LEVEMIR) 100 UNITS/ML UNITS SQ SCH (21:05)
[2019-04-01] MEDS ORDERED: METHADONE HCL 10 MG TABLET ONE (05:27)
[2019-04-01] MEDS ORDERED: METHADONE HCL 40 MG DISPERSABLE TABLET ONE (05:27)
[2019-04-01] MEDS: METHADONE 40 MG, METHADONE 20 MG PO SCH (05:53)
[2019-04-01] MEDS: FUROSEMIDE 100 MG/10 ML INJECTABLE VIAL IVPUSH SCH ×2 (05:57→14:50)
[2019-04-01] MEDS: INSULIN SLIDING SCALE (NOVOLOG) 1 VIAL SQ SCH ×2 (06:05→16:50)
[2019-04-01 06:57] LABS: CALCIUM 8.8 mg/dL (8.5-10.1); CREATININE 2.7 mg/dL (0.55-1.3); POTASSIUM 3.6 mmol/L (3.5-5.1)
[2019-04-01] MEDS: CALCIUM ACETATE 667 MG CAPSULE (FP) PO SCH ×3 (08:45→16:48)
--- NOTE | 2019-04-01 09:12 | PN ---
Progress Note, Physician Chief Complaint: sob History of Present Illness: breathing much better--no sob with walking, no orthopnea no cp no leg swelling - Current Medication List Current Medications: Active Medications Acetaminophen (Tylenol -) 650 mg PO Q4H PRN PRN Reason: PAIN LEVEL 1-5 Aspirin (Ecotrin -) 81 mg PO DAILY [facility] Last Admin: 03/31/19 10:42 Dose: 81 mg Atorvastatin Calcium (Lipitor -) 20 mg PO HS [facility] Last Admin: 03/31/19 21:04 Dose: 20 mg Calcium Acetate (Phoslo -) 667 mg PO TIDCM [facility] Last Admin: 03/31/19 17:20 Dose: 667 mg Clonidine HCl (Catapres Tts Patch -) 0.1 mg TD Q7D@1000 [facility] Last Admin: 03/30/19 09:37 Dose: 0.1 mg Clopidogrel Bisulfate (Plavix -) 75 mg PO DAILY [facility] Last Admin: 03/31/19 10:41 Dose: 75 mg Enoxaparin Sodium (Lovenox -) 30 mg SQ DAILY [facility] Last Admin: 03/31/19 10:42 Dose: 30 mg Furosemide (Lasix Injection -) 100 mg IVPUSH BID@0600,1400 [facility] Last Admin: 04/01/19 05:57 Dose: 100 mg Insulin Aspart ([facility]olog Vial Sliding Scale -) [facility] Protocol Last Admin: 04/01/19 06:05 Dose: Not Given Insulin Detemir (Levemir Vial) 15 units SQ [facility] Last Admin: 03/31/19 21:05 Dose: Not Given Isosorbide Mononitrate (Imdur -) 60 mg PO DAILY [facility] Last Admin: 03/31/19 10:40 Dose: 60 mg Labetalol HCl (Normodyne -) 300 mg PO BID [facility] Last Admin: 03/31/19 21:04 Dose: 300 mg Methadone HCl 40 mg/ Methadone (HCl 20 mg) 60 mg PO DAILY@0600 [facility] Last Admin: 04/01/19 05:53 Dose: 60 mg Nifedipine (Procardia Xl -) 60 mg PO BID [facility] Last Admin: 03/31/19 21:04 Dose: 60 mg Pantoprazole Sodium (Protonix -) 40 mg PO DAILY [facility] Last Admin: 03/31/19 10:40 Dose: 40 mg Polyethylene Glycol (Miralax (For Daily Use) -) 17 gm PO DAILY [facility] Last Admin: 03/31/19 10:42 Dose: Not Given - Objective Vital Signs: Vital Signs Temperature 97.9 F 04/01/19 06:00 Pulse Rate 66 04/01/19 06:00 Respiratory Rate 20 04/01/19 06:00 Blood Pressure 156/66 04/01/19 06:00 O2 Sat by Pulse Oximetry (%) 92 L 03/31/19 20:07 Constitutional: Yes: No Distress, Calm Eyes: No: Sclera Icterus HENT: No: Nasal Congestion Cardiovascular: Yes: Regular Rate and Rhythm, JVD (6-8 cm at 60 degrees), S1, S2 , Other (PMI non diplaced). No: Gallop, Murmur Respiratory: Yes: CTA Bilaterally. No: Accessory Muscle Use Gastrointestinal: Yes: Normal Bowel Sounds, Soft. No: Tenderness Musculoskeletal: Yes: Other (No kyphosis) Extremities: No: Cold, Cyanosis Edema: No Integumentary: No: Jaundice Neurological: Yes: Alert, Oriented (x3) Psychiatric: No: Agitated Labs: CBC, BMP 03/26/19 06:10 04/01/19 05:57 Assessment/Plan echo 10/2018 nl LV function, EF 55-60%, grade II diastolic dysfunction, RV nl, mild MR, mild AR, mod ao root dilatation CXR mod R pleural effusion stable since 10/2018 EKG: sinus,nl intervals no ischemic changes tele: NSR, no bradys 68M h/o HTN, DM, HLD, PAD s/p femoral stent, prior smoker, R sided lung ca s/p partial resection, ESRD on HD here with sob. acute diastolic chf: -volume overload after recently stopping hd -lasix has been incrementally titrated from 40 iv bid to 100 mg IV BID. weight trend improving on current dose. remains with significant JVD, sob at night ? asthma vs HF/orthopnea. s/p test dose metolazone 2.5 on 03/30. -04/01: wt coming down gradually, remains above prior discharge wt 09/26 (159 lbs ). bun/creat stable. received metolazone 2.5 qd x 2 days now. -rec lasix 100 iv bid today with metolazone 2.5 dose again--he is ok for d/c after afternoon diuretics dose on torsemide 100 po bid (no more metolazone as outpatient). -he will have f/u bun/creat with us end of this week and see someone from our practice in 2 wks HTN - target < 130/80 if achievable (severe HFpEF) - improved, however remains suboptimal - avoiding RAAS blockers, thiazides given tenuous renal fxn - changed nifedipine 90 qam to 60 bid (to help with early AM bp's), add clonidine patch. decr'd labetalol 400 bid to 300 bid given mild sinus nacho and adding clonidine (if nacho continues, consider changing labetalol to lower dose but tid dosing) - add low dose hydralazine 25 bid HLD - cont statin PAD - cont statin, plavix DM - manage per primary CKD - had been on HD, then stopped recently as renal fcn improved - per renal team elevated trop: -borderline trop elevation, flat trend, nl ck, similar to prior baseline values , not c/w acs
[2019-04-01] MEDS: ENOXAPARIN NA (PORCINE) 30 MG/0.3 ML DISP.SYRIN SQ SCH (09:42)
[2019-04-01] MEDS: hydrALAZINE HCL 25 MG TABLET (FP) PO SCH ×2 (09:42→22:09)
[2019-04-01] MEDS: NIFEdipine E.R 60 MG TABLET (UD) PO SCH ×2 (09:43→22:10)
[2019-04-01] MEDS: LABETALOL HCL 100 MG TABLET (FP) PO SCH ×2 (09:43→22:10)
[2019-04-01] MEDS: ISOSORBIDE MONONITRATE 60 MG TAB.SR.24H (FP) PO SCH (09:43)
[2019-04-01] MEDS: PANTOPRAZOLE 40 MG TABLET (FP) PO SCH (09:43)
[2019-04-01] MEDS: ASPIRIN COATED 81 MG TABLET.EC PO SCH (09:44)
[2019-04-01] MEDS: POLYETHYLENE GLYCOL 3350 119 GM BTL PO SCH (09:44)
[2019-04-01] MEDS: CLOPIDOGREL BISULFATE 75 MG TABLET (FP) PO SCH (09:44)
--- NOTE | 2019-04-01 11:01 | PN ---
Progress Note (short form) - Note Progress Note: pt seen/ examined chart reviewed awake/ comfortable Vital Signs Temp 98 F 04/01/19 09:49 Pulse 61 04/01/19 09:49 Resp 20 04/01/19 09:49 BP 164/89 04/01/19 09:49 Pulse Ox 92 L 03/31/19 20:07 Intake & Output 03/31/19 03/31/19 04/01/19 11:59 23:59 11:59 Intake Total 590 1480 180 Balance 590 1480 180 Weight 167 lb 166 lb 3 oz Intake: IV 20 10 RH #22 03/30 20 10 IVPB 50 50 Oral 520 1480 120 Other: Voiding Method Toilet Toilet Toilet # Unmeasured Voids Void 1 1 Weight Measurement Method Standing Scale Standing Scale Active Medications Acetaminophen (Tylenol -) 650 mg PO Q4H PRN PRN Reason: PAIN LEVEL 1-5 Aspirin (Ecotrin -) 81 mg PO DAILY [facility] Last Admin: 04/01/19 09:44 Dose: 81 mg Atorvastatin Calcium (Lipitor -) 20 mg PO HS [facility] Last Admin: 03/31/19 21:04 Dose: 20 mg Calcium Acetate (Phoslo -) 667 mg PO TIDCM [facility] Last Admin: 04/01/19 08:45 Dose: 667 mg Clonidine HCl (Catapres Tts Patch -) 0.1 mg TD Q7D@1000 [facility] Last Admin: 03/30/19 09:37 Dose: 0.1 mg Clopidogrel Bisulfate (Plavix -) 75 mg PO DAILY [facility] Last Admin: 04/01/19 09:44 Dose: 75 mg Enoxaparin Sodium (Lovenox -) 30 mg SQ DAILY [facility] Last Admin: 04/01/19 09:42 Dose: 30 mg Furosemide (Lasix Injection -) 100 mg IVPUSH BID@0600,1400 [facility] Last Admin: 04/01/19 05:57 Dose: 100 mg Hydralazine HCl (Apresoline -) 25 mg PO BID [facility] Last Admin: 04/01/19 09:42 Dose: 25 mg Insulin Aspart (Novolog Vial Sliding Scale -) [facility]; Protocol Last Admin: 04/01/19 06:05 Dose: Not Given Insulin Detemir (Levemir Vial) 15 units SQ [facility] Last Admin: 03/31/19 21:05 Dose: Not Given Isosorbide Mononitrate (Imdur -) 60 mg PO DAILY [facility] Last Admin: 04/01/19 09:43 Dose: 60 mg Labetalol HCl (Normodyne -) 300 mg PO BID [facility] Last Admin: 04/01/19 09:43 Dose: 300 mg Methadone HCl 40 mg/ Methadone (HCl 20 mg) 60 mg PO DAILY@0600 [facility] Last Admin: 04/01/19 05:53 Dose: 60 mg Metolazone (Zaroxolyn -) 2.5 mg PO ONCE ONE Stop: 04/01/19 10:58 Nifedipine (Procardia Xl -) 60 mg PO BID [facility] Last Admin: 04/01/19 09:43 Dose: 60 mg Pantoprazole Sodium (Protonix -) 40 mg PO DAILY [facility] Last Admin: 04/01/19 09:43 Dose: 40 mg Polyethylene Glycol (Miralax (For Daily Use) -) 17 gm PO DAILY [facility] Last Admin: 04/01/19 09:44 Dose: Not Given CBC, BMP 03/26/19 06:10 04/01/19 05:57 Physical Exam. Awake/ comfortable S1 S2 RRR Lungs-- decreased breath sounds at bases Abd-soft, NT edema trace PLAN stable Lasix BID- High doses weight- monitor monitor renal function OOB Monitor Bgm Will follow ambulate Problem List - Problems (1) CHF exacerbation Code(s): I50.9 - HEART FAILURE, UNSPECIFIED Qualifiers: (2) CKD (chronic kidney disease) Code(s): N18.9 - CHRONIC KIDNEY DISEASE, UNSPECIFIED (3) Elevated troponin I level Code(s): R79.89 - OTHER SPECIFIED ABNORMAL FINDINGS OF BLOOD CHEMISTRY (4) Diastolic CHF Code(s): I50.30 - UNSPECIFIED DIASTOLIC (CONGESTIVE) HEART FAILURE (5) History of lung cancer Code(s): Z85.118 - PERSONAL HISTORY OF MALIGNANT NEOPLASM OF BRONCHUS AND LUNG (6) History of substance abuse Code(s): F19.11 - OTHER PSYCHOACTIVE SUBSTANCE ABUSE, IN REMISSION (7) Status post lung surgery Code(s): Z98.890 - OTHER SPECIFIED POSTPROCEDURAL STATES (8) Diabetes Code(s): E11.9 - TYPE 2 DIABETES MELLITUS WITHOUT COMPLICATIONS Qualifiers: Diabetes mellitus type: type 2 Chronic kidney disease stage: on chronic dialysis
[2019-04-01] MEDS ORDERED: METOLAZONE 2.5 MG TABLET (FP) PO ONE (12:30)
[2019-04-01 12:32] VITALS: BMI 28.5
--- NOTE | 2019-04-01 12:49 | PN ---
Progress Note (short form) - Note Progress Note: Renal follow up for CKD Seen and examined at the bedside awake and alert no acute complaints feels much better making urine no leg swelling Vital Signs Temperature 98 F 04/01/19 09:49 Pulse Rate 61 04/01/19 09:49 Respiratory Rate 20 04/01/19 09:49 Blood Pressure 164/89 04/01/19 09:49 O2 Sat by Pulse Oximetry (%) 99 04/01/19 09:00 Intake & Output 03/29/19 03/30/19 03/31/19 04/01/19 23:59 23:59 23:59 23:59 Intake Total 850 1770 2070 180 Balance 850 1770 2070 180 Weight 77.655 kg 76.204 kg 75.75 kg 75.296 kg NAD awake and alert RRR Dec BS bilateral lung [place] soft NT/ND no edema in LE CBC, BMP 03/26/19 06:10 04/01/19 05:57 Current Medications Acetaminophen (Tylenol -) 650 mg PO Q4H PRN PRN Reason: PAIN LEVEL 1-5 Aspirin (Ecotrin -) 81 mg PO DAILY [facility] Last Admin: 04/01/19 09:44 Dose: 81 mg Atorvastatin Calcium (Lipitor -) 20 mg PO HS [facility] Last Admin: 03/31/19 21:04 Dose: 20 mg Calcium Acetate (Phoslo -) 667 mg PO TIDCM [facility] Last Admin: 04/01/19 12:38 Dose: 667 mg Clonidine HCl (Catapres Tts Patch -) 0.1 mg TD Q7D@1000 [facility] Last Admin: 03/30/19 09:37 Dose: 0.1 mg Clopidogrel Bisulfate (Plavix -) 75 mg PO DAILY [facility] Last Admin: 04/01/19 09:44 Dose: 75 mg Enoxaparin Sodium (Lovenox -) 30 mg SQ DAILY [facility] Last Admin: 04/01/19 09:42 Dose: 30 mg Furosemide (Lasix Injection -) 100 mg IVPUSH BID@0600,1400 [facility] Last Admin: 04/01/19 05:57 Dose: 100 mg Hydralazine HCl (Apresoline -) 25 mg PO BID [facility] Last Admin: 04/01/19 09:42 Dose: 25 mg Insulin Aspart (Novolog Vial Sliding Scale -) [facility]; Protocol Last Admin: 04/01/19 06:05 Dose: Not Given Insulin Detemir (Levemir Vial) 15 units SQ HS [facility] Last Admin: 03/31/19 21:05 Dose: Not Given Isosorbide Mononitrate (Imdur -) 60 mg PO DAILY [facility] Last Admin: 04/01/19 09:43 Dose: 60 mg Labetalol HCl (Normodyne -) 300 mg PO BID [facility] Last Admin: 04/01/19 09:43 Dose: 300 mg Methadone HCl 40 mg/ Methadone (HCl 20 mg) 60 mg PO DAILY@0600 [facility] Last Admin: 04/01/19 05:53 Dose: 60 mg Nifedipine (Procardia Xl -) 60 mg PO BID [facility] Last Admin: 04/01/19 09:43 Dose: 60 mg Pantoprazole Sodium (Protonix -) 40 mg PO DAILY [facility] Last Admin: 04/01/19 09:43 Dose: 40 mg Polyethylene Glycol (Miralax (For Daily Use) -) 17 gm PO DAILY [facility] Last Admin: 04/01/19 09:44 Dose: Not Given 68 year old male with pmhx of htn, bret requiring HD, DM, COPD, HLD, PVD with femoral stents, methadone dependence and lung cancer who presents to the ER with edema and shortness of breath. 1. CKD/BRET in setting of HF 2. Congestive heart failure 3. DM 4. COPD 5. Chronic anemia Renal function stable, this Cr value likey represents his baseline Agree with discharge plan of Torsemide 100mg BID Will need weekly monitoring of BMP for first several weeks To follow up in our office on discharge Thank you Dariusz Iniguez DO
[2019-04-01] MEDS: ATORVASTATIN CA 20 MG TABLET (FP) PO SCH (22:09)
[2019-04-01] MEDS: INSULIN (LEVEMIR) 100 UNITS/ML UNITS SQ SCH (22:10)
[2019-04-02] MEDS ORDERED: METHADONE HCL 10 MG TABLET ONE (05:09)
[2019-04-02] MEDS ORDERED: METHADONE HCL 40 MG DISPERSABLE TABLET ONE (05:09)
[2019-04-02] MEDS: METHADONE 40 MG, METHADONE 20 MG PO SCH (05:23)
[2019-04-02] MEDS: FUROSEMIDE 100 MG/10 ML INJECTABLE VIAL IVPUSH SCH (05:23)
[2019-04-02] MEDS: INSULIN SLIDING SCALE (NOVOLOG) 1 VIAL SQ SCH (06:03)
[2019-04-02 07:16] LABS: BLOOD UREA NITROGEN 83.2 mg/dL (7-18); CALCIUM 9.1 mg/dL (8.5-10.1); CREATININE 2.9 mg/dL (0.55-1.3); POTASSIUM 3.4 mmol/L (3.5-5.1)
[2019-04-02] MEDS ORDERED: INSULIN (LEVEMIR) 100 UNITS/ML UNITS SQ ONE (07:49)
[2019-04-02] MEDS ORDERED: INSULIN SLIDING SCALE (NOVOLOG) 1 VIAL SQ ONE (07:50)
[2019-04-02] MEDS: CALCIUM ACETATE 667 MG CAPSULE (FP) PO SCH ×2 (08:54→11:56)
[2019-04-02] MEDS: PANTOPRAZOLE 40 MG TABLET (FP) PO SCH (09:02)
[2019-04-02] MEDS: ENOXAPARIN NA (PORCINE) 30 MG/0.3 ML DISP.SYRIN SQ SCH (09:03)
[2019-04-02] MEDS: hydrALAZINE HCL 25 MG TABLET (FP) PO SCH (09:03)
[2019-04-02] MEDS: NIFEdipine E.R 60 MG TABLET (UD) PO SCH (09:03)
[2019-04-02] MEDS: LABETALOL HCL 100 MG TABLET (FP) PO SCH (09:03)
[2019-04-02] MEDS: CLOPIDOGREL BISULFATE 75 MG TABLET (FP) PO SCH (09:03)
[2019-04-02] MEDS: ASPIRIN COATED 81 MG TABLET.EC PO SCH (09:04)
[2019-04-02] MEDS: ISOSORBIDE MONONITRATE 60 MG TAB.SR.24H (FP) PO SCH (09:05)
[2019-04-02] MEDS: POLYETHYLENE GLYCOL 3350 119 GM BTL PO SCH (09:06)
[2019-04-02 11:34] VITALS: BP 155/71; PULSE 58; TEMP 97.9
--- NOTE | 2019-04-02 12:26 | PN ---
Progress Note (short form) - Note Progress Note: s: sob and edema resolved, no orthopnea, chest pain, palps Current Medications Acetaminophen (Tylenol -) 650 mg PO Q4H PRN PRN Reason: PAIN LEVEL 1-5 Aspirin (Ecotrin -) 81 mg PO DAILY [facility] Last Admin: 04/02/19 09:04 Dose: 81 mg Atorvastatin Calcium (Lipitor -) 20 mg PO HS [facility] Last Admin: 04/01/19 22:09 Dose: 20 mg Calcium Acetate (Phoslo -) 667 mg PO TIDCM [facility] Last Admin: 04/02/19 11:56 Dose: 667 mg Clonidine HCl (Catapres Tts Patch -) 0.1 mg TD Q7D@1000 [facility] Last Admin: 03/30/19 09:37 Dose: 0.1 mg Clopidogrel Bisulfate (Plavix -) 75 mg PO DAILY [facility] Last Admin: 04/02/19 09:03 Dose: 75 mg Enoxaparin Sodium (Lovenox -) 30 mg SQ DAILY [facility] Last Admin: 04/02/19 09:03 Dose: 30 mg Hydralazine HCl (Apresoline -) 25 mg PO BID [facility] Last Admin: 04/02/19 09:03 Dose: 25 mg Insulin Aspart (Novolog Vial Sliding Scale -) [facility]; Protocol Last Admin: 04/02/19 06:03 Dose: Not Given Insulin Detemir (Levemir Vial) 15 units SQ [facility] Last Admin: 04/01/19 22:10 Dose: Not Given Isosorbide Mononitrate (Imdur -) 60 mg PO DAILY [facility] Last Admin: 04/02/19 09:05 Dose: 60 mg Labetalol HCl (Normodyne -) 300 mg PO BID [facility] Last Admin: 04/02/19 09:03 Dose: 300 mg Methadone HCl 40 mg/ Methadone (HCl 20 mg) 60 mg PO DAILY@0600 [facility] Last Admin: 04/02/19 05:23 Dose: 60 mg Nifedipine (Procardia Xl -) 60 mg PO BID [facility] Last Admin: 04/02/19 09:03 Dose: 60 mg Pantoprazole Sodium (Protonix -) 40 mg PO DAILY [facility] Last Admin: 04/02/19 09:02 Dose: 40 mg Polyethylene Glycol (Miralax (For Daily Use) -) 17 gm PO DAILY [facility] Last Admin: 04/02/19 09:06 Dose: Not Given Torsemide (Demadex -) 100 mg PO BID@0600,1300 [facility] Vital Signs Period Temp Pulse Resp BP Sys/Bansal Pulse Ox Last 24 Hr 97.8 F-98.5 F 58-69 18-18 128-161/53-79 95-99 Constitutional: Yes: No Distress, Calm Eyes: No: Sclera Icterus HENT: No: Nasal Congestion Cardiovascular: Yes: Regular Rate and Rhythm, JVD (6-8 cm at 60 degrees), S1, S2 , Other (PMI non diplaced). No: Gallop, Murmur Respiratory: Yes: CTA Bilaterally. No: Accessory Muscle Use Gastrointestinal: Yes: Normal Bowel Sounds, Soft. No: Tenderness Musculoskeletal: Yes: Other (No kyphosis) Extremities: No: Cold, Cyanosis Edema: No Integumentary: No: Jaundice Neurological: Yes: Alert, Oriented (x3) Psychiatric: No: Agitated Assessment/Plan echo 10/2018 nl LV function, EF 55-60%, grade II diastolic dysfunction, RV nl, mild MR, mild AR, mod ao root dilatation CXR mod R pleural effusion stable since 10/2018 EKG: sinus,nl intervals no ischemic changes tele: NSR, sinus nacho 68M h/o HTN, DM, HLD, PAD s/p femoral stent, prior smoker, R sided lung ca s/p partial resection, ESRD on HD here with sob. acute diastolic chf: -volume overload after recently stopping hd -lasix has been incrementally titrated from 40 iv bid to 100 mg IV BID. weight trend improving on current dose. remains with significant JVD, sob at night ? asthma vs HF/orthopnea. s/p test dose metolazone 2.5 on 03/30. -04/01: wt coming down gradually, remains above prior discharge wt 09/26 (159 lbs ). bun/creat stable. received metolazone 2.5 qd x 2 days now. -was on lasix 100 iv bid today with metolazone 2.5 dose yesterday - agree with transition to torsemide 100 mg BID - stable for dc from cardiac perspective - f/u bun/creat with us end of this week and see someone from our practice in 2 wks HTN - target < 130/80 if achievable (severe HFpEF) - improved, however remains suboptimal - avoiding RAAS blockers, thiazides given tenuous renal fxn - changed nifedipine 90 qam to 60 bid (to help with early AM bp's), add clonidine patch. decr'd labetalol 400 bid to 300 bid given mild sinus nacho and adding clonidine (if nacho continues, consider changing labetalol to lower dose but tid dosing) - cont low dose hydralazine 25 bid HLD - cont statin PAD - cont statin, plavix DM - manage per primary CKD - had been on HD, then stopped recently as renal fcn improved - per renal team elevated trop: -borderline trop elevation, flat trend, nl ck, similar to prior baseline values , not c/w acs
--- NOTE | 2019-04-02 12:30 | DS ---
Physical Examination Vital Signs: Vital Signs Temperature 97.9 F 04/02/19 10:00 Pulse Rate 58 L 04/02/19 10:00 Respiratory Rate 18 04/02/19 10:00 Blood Pressure 155/71 04/02/19 10:00 O2 Sat by Pulse Oximetry (%) 95 04/02/19 08:36 Constitutional: Yes: No Distress, Calm Cardiovascular: Yes: Regular Rate and Rhythm Respiratory: Yes: Diminished Gastrointestinal: Yes: Normal Bowel Sounds, Soft. No: Tenderness Edema: Yes Edema: LLE: Trace, RLE: Trace Labs: CBC, BMP 03/26/19 06:10 04/02/19 06:00 Discharge Summary Problems reviewed: Yes Reason For Visit: ELEVATED TROPONIN I LEVEL Current Active Problems CHF exacerbation (Acute) CKD (chronic kidney disease) (Acute) Elevated troponin I level (Acute) Health Concerns: Admitted for CHF decompensation , acute on chronic renal failure found to have elevated troponins- due to demand ischemia Evaluated by Cardiology and renal diuresed well on IV lasix added zaroxylin during hospitalization-- he responded well Weight is now 162 lbs he feels better no SOB no chest pain stable for dc home on PO Torsemide 100mg BID creatinine is stable at 2.9 Condition: Improved - Instructions Referrals: Rex Hillman MD [Primary Care Provider] - Russel Anthony MD [Staff Physician] - Dariusz Iniguez MD [Staff Physician] - Disposition: HOME - Home Medications Comprehensive Discharge Medication List: Ambulatory Orders Methadone [Dolophine -] 60 mg PO DAILY@0600 tablet MDD 1 10/18/18 Aspirin [Aspirin EC] 81 mg PO DAILY #30 tablet. 10/27/18 Atorvastatin Ca [Lipitor] 20 mg PO HS #30 tablet 10/27/18 Calcium Acetate [Phoslo -] 667 mg PO TIDCM #90 capsule 10/27/18 Cholecalciferol (Vitamin D3) [Dialyvite Vitamin D3 Max] 50,000 unit PO WEEKLY # 4 tablet 10/27/18 Clopidogrel Bisulfate [Plavix -] 75 mg PO DAILY #30 tablet 10/27/18 Isosorbide Mononitrate [Imdur -] 60 mg PO DAILY #30 tab.sr.24h 10/27/18 Labetalol HCl [Normodyne -] 300 mg PO BID #60 tablet 10/27/18 Nifedipine ER [Procardia XL -] 90 mg PO DAILY #30 tab.er.24 10/27/18 Insulin Glargine,Hum.rec.anlog [Lantus] 27 unit SQ HS 03/22/19 Omeprazole 40 mg PO DAILY 03/22/19 Torsemide [Demadex -] 100 mg PO DAILY 03/22/19
[2019-04-02] MEDS ORDERED: TORSEMIDE 100 MG TABLET PO SCH (13:00)
--- NOTE | 2019-04-02 13:21 | PN ---
Progress Note (short form) - Note Progress Note: Renal follow up for CKD Seen and examined at the bedside no acute complaints denies any shortness of breath, orthopnea making urine Vital Signs Temperature 97.9 F 04/02/19 10:00 Pulse Rate 58 L 04/02/19 10:00 Respiratory Rate 18 04/02/19 10:00 Blood Pressure 155/71 04/02/19 10:00 O2 Sat by Pulse Oximetry (%) 95 04/02/19 08:36 Intake & Output 03/30/19 03/31/19 04/01/19 04/02/19 23:59 23:59 23:59 23:59 Intake Total 17690 650 150 Balance 1769 2069 650 150 Weight 76.204 kg 75.75 kg 75.296 kg 73.573 kg NAD awake and alert RRR Dec BS bilateral lung [place] soft NT/ND no edema in LE CBC, BMP 03/26/19 06:10 04/02/19 06:00 Current Medications Acetaminophen (Tylenol -) 650 mg PO Q4H PRN PRN Reason: PAIN LEVEL 1-5 Aspirin (Ecotrin -) 81 mg PO DAILY [facility] Last Admin: 04/02/19 09:04 Dose: 81 mg Atorvastatin Calcium (Lipitor -) 20 mg PO HS [facility] Last Admin: 04/01/19 22:09 Dose: 20 mg Calcium Acetate (Phoslo -) 667 mg PO TIDCM [facility] Last Admin: 04/02/19 11:56 Dose: 667 mg Clonidine HCl (Catapres Tts Patch -) 0.1 mg TD Q7D@1000 [facility] Last Admin: 03/30/19 09:37 Dose: 0.1 mg Clopidogrel Bisulfate (Plavix -) 75 mg PO DAILY [facility] Last Admin: 04/02/19 09:03 Dose: 75 mg Enoxaparin Sodium (Lovenox -) 30 mg SQ DAILY [facility] Last Admin: 04/02/19 09:03 Dose: 30 mg Hydralazine HCl (Apresoline -) 25 mg PO BID [facility] Last Admin: 04/02/19 09:03 Dose: 25 mg Insulin Aspart (Novolog Vial Sliding Scale -) [facility]; Protocol Last Admin: 04/02/19 06:03 Dose: Not Given Insulin Detemir (Levemir Vial) 15 units SQ [facility] Last Admin: 04/01/19 22:10 Dose: Not Given Isosorbide Mononitrate (Imdur -) 60 mg PO DAILY [facility] Last Admin: 04/02/19 09:05 Dose: 60 mg Labetalol HCl (Normodyne -) 300 mg PO BID [facility] Last Admin: 04/02/19 09:03 Dose: 300 mg Methadone HCl 40 mg/ Methadone (HCl 20 mg) 60 mg PO DAILY@0600 [facility] Last Admin: 04/02/19 05:23 Dose: 60 mg Nifedipine (Procardia Xl -) 60 mg PO BID [facility] Last Admin: 04/02/19 09:03 Dose: 60 mg Pantoprazole Sodium (Protonix -) 40 mg PO DAILY [facility] Last Admin: 04/02/19 09:02 Dose: 40 mg Polyethylene Glycol (Miralax (For Daily Use) -) 17 gm PO DAILY [facility] Last Admin: 04/02/19 09:06 Dose: Not Given Torsemide (Demadex -) 100 mg PO BID@0600,1300 [facility] 68 year old male with pmhx of htn, bret requiring HD, DM, COPD, HLD, PVD with femoral stents, methadone dependence and lung cancer who presents to the ER with edema and shortness of breath. 1. CKD/BRET in setting of HF 2. Congestive heart failure 3. DM 4. COPD 5. Chronic anemia Renal function essentially stable convert IV diuretics to PO Would start potassium chloride 20meq daily while on high dose diuretics will need repeat BMP in 1 week to follow up in our office for CKD management Thank you Dariusz Iniguez DO
--- NOTE | 2019-04-17 15:11 | EKG ---
Test Reason : Blood Pressure : / mmHG Vent. Rate : 074 BPM Atrial Rate : 074 BPM P-R Int : 184 ms QRS Dur : 106 ms QT Int : 428 ms P-R-T Axes : 038 012 027 degrees QTc Int : 475 ms NORMAL SINUS RHYTHM POSSIBLE LEFT ATRIAL ENLARGEMENT BORDERLINE ECG WHEN COMPARED WITH ECG OF 22-MAR-2019 13:17, NO SIGNIFICANT CHANGE WAS FOUND Confirmed by PER WINTER MD ([id number]) on 04/17/2019 3:11:03 PM Referred By: Confirmed By:PER WINTER MD
== END 2019-04-02 16:53 | disposition home or self-care (01) | DRG 291 ==
LOC: JER 13:07 → INTOOBSV 15:44 → JERBED 15:44 → UNDOADMOB 15:44 → JERBED 18:10 → J4S 03-23 15:53 → OBSVTOIN 03-24 10:37
PROVIDERS: ADMIT Internal Medicine; ATTEND Internal Medicine
DX: I13.2 Hypertensive heart and chronic kidney disease with heart failure and with stage 5 chronic kidney disease, or end stage renal disease (principal); N18.6 End stage renal disease; I50.31 Acute diastolic (congestive) heart failure; I24.8 Other forms of acute ischemic heart disease; F11.20 Opioid dependence, uncomplicated; J90 Pleural effusion, not elsewhere classified; N17.9 Acute kidney failure, unspecified; J44.9 Chronic obstructive pulmonary disease, unspecified; E78.5 Hyperlipidemia, unspecified; K21.9 Gastro-esophageal reflux disease without esophagitis; B18.2 Chronic viral hepatitis C; R79.89 Other specified abnormal findings of blood chemistry; E11.22 Type 2 diabetes mellitus with diabetic chronic kidney disease; R59.0 Localized enlarged lymph nodes; E11.51 Type 2 diabetes mellitus with diabetic peripheral angiopathy without gangrene; E87.70 Fluid overload, unspecified; D63.8 Anemia in other chronic diseases classified elsewhere; Z85.118 Personal history of other malignant neoplasm of bronchus and lung; Z90.2 Acquired absence of lung [part of]
CPT/HCPCS: 36415; 71045-TC-FY; 71046-TC-FY; 71250-TC; 80048; 80053; 80061; 82550; 82553; 82728; 82962; 83036; 83540; 83550; 83721; 83735; 83880; 84100; 84443; 84484; 85025; 93005; 93010; 99285-25; G0378; J0885

== ENCOUNTER 2019-11-22 04:53 | Day surgery (SDC) | payer OTHER ==
[2019-11-21 13:46] VITALS: BMI 24.5
[2019-11-22] MEDS ORDERED: HEPARIN NA (PORCINE) 5,000 UNITS/ML 1ML VIAL ONE (14:00)
[2019-11-22] MEDS ORDERED: PAPAVERINE HCL 30 MG/1 ML 10 ML VIAL NR ONE ×2 (14:03→15:37)
[2019-11-22] MEDS ORDERED: LIDOCAINE HCL 1%, 10 MG/ML (20ML VIAL) ONE ×2 (14:03→16:07)
--- NOTE | 2019-11-22 15:07 | HP ---
Satellite [facility] - Chief Complaint History of Present Illness: 69 yo man with end-stage renal disease who needs dialysis access creation. He is on HD with a Permacath. He is right handed. History Source: Patient Limitations to Obtaining History: No Limitations - Past Medical History Allergies/Adverse Reactions: Allergies Allergy/AdvReac Type Severity Reaction Status Date / Time No Known Allergies Allergy Verified 11/22/19 14:33 Cardiovascular: Yes: CAD, HTN, Hyperlipdemia Renal/: Yes: Renal Failure, Hemodialysis Endocrine: Yes: Diabetes Mellitus - Current Medications Current Medications: Home Medications Medication Instructions Recorded Aspirin [Aspirin EC] 81 mg PO DAILY 11/22/19 Atorvastatin Ca [Lipitor] 20 mg PO DAILY 11/22/19 Calcium Acetate [Phoslo -] 667 mg PO TIDCM 11/22/19 Clonidine HCl [Clonidine HCl ER] 0.1 mg PO DAILY 11/22/19 Ergocalciferol (Vitamin D2) 50,000 unit PO DAILY 11/22/19 [Vitamin D2] Hydralazine HCl 25 mg PO BID 11/22/19 Insulin Glargine,Hum.rec.anlog 20 unit SQ 11/22/19 [Lantus] Isosorbide Mononitrate [Isosorbide 60 mg PO DAILY 11/22/19 Mononitrate ER] Labetalol HCl 300 mg PO BID 11/22/19 Nifedipine ER [Procardia Xl -] 60 mg PO BID 11/22/19 Omeprazole 40 mg PO DAILY 11/22/19 Potassium Chloride [Klor-Con] 20 meq PO BID 11/22/19 Torsemide [Demadex] 200 mg PO DAILY 11/22/19 Satellite Physical Exam - Physical Examination Vital Signs: Vital Signs Period Temp Pulse Resp BP Sys/Bansal Pulse Ox Last 24 Hr 98.0 F 55 16 138/61 98 General Appearance: Alert & Oriented x3 ENT: Clear Lung: Clear to auscultation Heart: Regular rate & rhythm Abdomen: Soft Extremities: No edema, No tenderness/swelling, Normal pulses Neurological: Intact Satellite Impression/Plan - Impression/Plan Impression: ESRD Operative Procedure: Creation AV fistula left arm Date to be Performed: 11/22/19
[2019-11-22] MEDS ORDERED: PROPOFOL 20 ML ONE ×2 (15:28→16:30)
[2019-11-22] MEDS ORDERED: MIDAZOLAM HCL 2 MG/2 ML SINGLE DOSE VIAL ONE (15:28)
[2019-11-22] MEDS ORDERED: LIDOCAINE HCL 1%, 10 MG/ML (20ML VIAL) NR ONE ×2 (15:58)
[2019-11-22] MEDS ORDERED: POVIDONE-IODINE OINTMENT 10% - 28.4 GM TUBE TP ONE (16:55)
--- NOTE | 2019-11-22 17:04 | OP ---
Operative Note - Note: Operative Date: 11/22/19 Pre-Operative Diagnosis: ESRD Operation: Creation AVF left arm Findings: Distal cephalic vein sclerotic and unusable. Antecubital vein patent with brachial and cephalic outflow. Post-Operative Diagnosis: Same as Pre-op Surgeon: Iain Dumont Anesthesiologist/TEAR DOWN MATCHER: Lev Wheeler Anesthesia: MAC Estimated Blood Loss (mls): 20
[2019-11-22] MEDS ORDERED: ACETAMINOPHEN 325 MG TABLET (FP) PO PRN (17:30)
[2019-11-22] MEDS ORDERED: oxyCODONE HCL 5 MG TABLET PO PRN (17:30)
[2019-11-22] MEDS ORDERED: oxyCODONE HCL 5 MG TABLET ONE (18:27)
[2019-11-22 18:50] VITALS: PULSE 50
[2019-11-22 19:04] VITALS: BP 139/60; TEMP 97.3
--- NOTE | 2019-11-25 19:46 | OP ---
DATE OF OPERATION: 11/22/2019 SURGEON: Iain Redman MD. PROCEDURE: Creation of arteriovenous fistula left arm. PREOPERATIVE DIAGNOSIS: End-stage renal disease. POSTOPERATIVE DIAGNOSIS: End-stage renal disease. ANESTHESIA: Fractional. ANESTHESIOLOGIST: Lev Wheeler CRNA. OPERATIVE FINDINGS: The cephalic vein in the distal forearm was patent and found to be sclerotic and unusable. The antecubital vein was adequate size with runoff to the cephalic and basilic veins. The antecubital brachial artery was adequate diameter and flow. OPERATIVE PROCEDURE: Following routine patient identification with side and site verification, intravenous sedation was established. The left arm was prepped with ChloraPrep. Timeout was performed. 1% lidocaine was infiltrated in all the sites of incision. Incision was made over the cephalic vein proximal to the wrist, which had been mapped preoperatively with duplex imaging. The subcutaneous tissue was divided using cautery to gain hemostasis. Significant scarring of subcutaneous tissues was evident, and there was sclerosis of the wall of the vein, making it friable and easily damaged. Attempts to dissect the vein proved unsuccessful, and decision was made that this vein would not be usable for an AV fistula. Therefore, the wound was closed with interrupted sutures of 3-0 Vicryl and skin josette. Incision was then made in the antecubital fossa and carried down to subcutaneous tissues using cautery for hemostasis. The antecubital vein was then mobilized and ligated distally. It was distended with heparin and papaverine solution with outflow via the cephalic and basilic veins. Number 5 and number 8 feeding tubes were passed proximally up the cephalic vein without resistance. The vein was then carefully dissected with care not to interrupt the basilic vein branch. The wound was then deepened through the muscle fascia. The brachial artery mobilized and secured with Vesseloops. The artery was occluded Vesseloops and opened on exposed surface with a 6-mm arteriotomy. The antecubital vein was then spatulated and anastomosed to the side of the brachial artery with running suture of 6-0 Prolene. Prior to completion of suture line, the artery was allowed to back bleed and flush, and the vein was flushed with heparin solution. Suture line was completed, and clamps were released. There was good flow through the anastomosis with runoff into both the cephalic and basilic veins. Decision was made to leave both veins patent to improve the runoff. Surgicel was applied to control bleeding from the suture line. Hemostasis was adequate. The wound was closed with interrupted suture of 3-0 Vicryl and skin josette. A sterile dressing was applied, and the patient was taken to the recovery room in stable condition. IAIN REDMAN M.D. RUTH [id number]
== END 2019-11-22 19:00 | disposition home or self-care (01) ==
LOC: JASU-SURG 04:53 → MERGE 04:53 → JASU-SURG 19:00
PROVIDERS: ATTEND Surgery
PROC: 03180ZD Bypass Left Brachial Artery to Upper Arm Vein, Open Approach (ICD-10-PCS; principal; 2019-11-22 15:30)
DX: I12.9 Hypertensive chronic kidney disease with stage 1 through stage 4 chronic kidney disease, or unspecified chronic kidney disease (principal); E11.22 Type 2 diabetes mellitus with diabetic chronic kidney disease; N18.9 Chronic kidney disease, unspecified; N18.6 End stage renal disease
CPT/HCPCS: 36415; 82962; 84132; 94760; J1644

== ENCOUNTER 2019-11-29 08:23 | Inpatient (IN) | payer OTHER ==
--- NOTE | 2019-11-29 08:26 | PDOC ---
History of Present Illness - General Stated Complaint: Blood Sugar Problem Time Seen by Provider: 11/29/19 08:26 - History of Present Illness Initial Comments: 69 YOM h/o T2DBM, CHF, ESRD, hepatitis, opioid dependence presents for low blood sugars. Per EMS patient was found by family in bed and unresponsive. They tried to rouse him by splashing cold water on his face. They also administered CPR, primarily attempting to assist respiration by mouth to mouth. EMS was called, upon arriving they found his fingerstick BG to be low 50s. He was given 250 mls of D10 which caused his BG to come up to low 200s. He was brought in to the ED for evaluation. He endorses some SOB. Denies CP, N/V/D, fever or chills. Denies sick contacts. Says was tested for COVID but was negative. Constitutional: No Weight Change, No Fever, No Chills, No Night Sweats, No F atigue, No Malaise ENT/Mouth: No Hearing Changes, No Ear Pain, No Nasal Congestion, No Sinus Pain, No Hoarseness, No sore throat, No Rhinorrhea, No Swallowing Difficulty Eyes: No Eye Pain, No Swelling, No Redness, No Foreign Body, No Discharge, No Vision Changes Cardiovascular: No Chest Pain, No SOB, No PND, No Dyspnea on Exertion, No Orthopnea, No Claudication, No Edema, No Palpitations Respiratory: No Cough, No Sputum, No Wheezing, No Smoke Exposure, No Dyspnea Gastrointestinal: No Nausea, No Vomiting, No Diarrhea, No Constipation, No Pain, No Heartburn, No Anorexia, No Dysphagia, No Hematochezia, No Melena, No Flatulence, No Jaundice Genitourinary: No Dysmenorrhea, No DUB, No Dyspareunia, No Dysuria, No Urinary Frequency, No Hematuria, No Urinary Incontinence, No Urgency, No Flank Pain, No Urinary Flow Changes, No Hesitancy Musculoskeletal: No Arthralgias, No Myalgias, No Joint Swelling, No Joint Stiffness, No Back Pain, No Neck Pain, No Injury History Skin: No Skin Lesions, No Pruritis, No Hair Changes, No Breast/Skin Changes, No Nipple Discharge Neuro: No Weakness, No Numbness, No Paresthesias, No Loss of Consciousness, No Syncope, No Dizziness, No Headache, No Coordination Changes, No Recent Falls Psych: No Anxiety/Panic, No Depression, No Insomnia, No Personality Changes, No Delusions, No Rumination, No SI/HI/AH/VH, No Social Issues, No Memory Changes, No Violence/Abuse Hx., No Eating Concerns Heme/Lymph: No Bruising, No Bleeding, No Transfusions History, No Lymphadenopathy Endocrine: No Polyuria, No Polydipsia, No Temperature Intolerance 11/29/19 15:16 Past History - Medical History Allergies/Adverse Reactions: Allergies Allergy/AdvReac Type Severity Reaction Status Date / Time No Known Allergies Allergy Verified 11/29/19 13:19 Home Medications: Ambulatory Orders Methadone [Dolophine -] 60 mg PO DAILY@0600 tablet MDD 1 10/18/18 Aspirin [Aspirin EC] 81 mg PO DAILY #30 tablet.dr 10/27/18 Atorvastatin Ca [Lipitor] 20 mg PO HS #30 tablet 10/27/18 Calcium Acetate [Phoslo -] 667 mg PO TIDCM #90 capsule 10/27/18 Cholecalciferol (Vitamin D3) [Dialyvite Vitamin D3 Max] 50,000 unit PO WEEKLY #4 tablet 10/27/18 Isosorbide Mononitrate [Imdur -] 60 mg PO DAILY #30 tab.sr.24h 10/27/18 Labetalol HCl [Normodyne -] 300 mg PO BID #60 tablet 10/27/18 Omeprazole 40 mg PO DAILY 03/22/19 Clonidine Patch [Catapres Tts Patch -] 0.1 mg TD Q7D@1000 #14 patch.tdwk 04/02/19 Insulin Glargine,Hum.rec.anlog [Lantus] 15 unit SQ HS #0 unit 04/02/19 Nifedipine ER [Procardia XL -] 60 mg PO BID #60 tab.er.24 04/02/19 Potassium Chloride 20 meq PO BID #60 tablet.er 04/02/19 Torsemide [Demadex -] 100 mg PO BID@0600,1300 #60 tablet 04/02/19 hydrALAZINE HCL [Apresoline -] 25 mg PO BID #60 tablet 04/02/19 Cancer: Yes (lung) Cardiac Disorders: Yes COPD: Yes CHF: Yes Diabetes: Yes (nneuropathy) Dialysis: Yes (M/W/F(RT.SIDE CHEST PERMA CATH)) HTN: Yes Hypercholesterolemia: Yes - Surgical History Abdominal Surgery: No Appendectomy: No Cardiac Surgery: No Cholecystectomy: No Lung Surgery: Yes (RLL LOBECTOMY) Neurologic Surgery: No Orthopedic Surgery: No - Immunization History Immunization Up to Date: Yes - Psycho-Social/Smoking History Smoking History: Never smoked Have you smoked in the past 12 months: No If you are a former smoker, when did you quit?: quit 15 yrs ago *Physical Exam - Physical Exam General Appearance: Yes: Appropriately Dressed HEENT: positive: EOMI, SARAH, Normal ENT Inspection Neck: positive: Trachea midline, Normal Thyroid Respiratory/Chest: positive: Lungs Clear, Normal Breath Sounds Cardiovascular: positive: Regular Rhythm, Regular Rate, S1, S2 Gastrointestinal/Abdominal: positive: Flat, Soft Musculoskeletal: positive: Normal Inspection Extremity: positive: Normal Capillary Refill, Normal Inspection, Normal Range of Motion Integumentary: positive: Normal Color, Dry, Warm, Cyanotic Neurologic: positive: Other (Patient was A and O x1, intermittently responsive, unable to perform reliable exam. ) ED Treatment Course - LABORATORY CBC & Chemistry Diagram: 11/29/19 09:10 11/29/19 09:10 Medical Decision Making - Medical Decision Making 69 YOM h/o T2DBM, CHF, ESRD, hepatitis, opioid dependence presents for low blood sugars. Per EMS patient was found by family in bed and unresponsive. They tried to rouse him by splashing cold water on his face. They also administered CPR, primarily attempting to assist respiration by mouth to mouth. EMS was called, upon arriving they found his fingerstick BG to be low 50s. He was given 250 mls of D10 which caused his BG to come up to low 200s. He was brought in to the ED for evaluation. He endorses some SOB. Denies CP, N/V/D, fever or chills. Denies sick contacts. Says was tested for COVID but was negative. Or arrival patient was bradycardic to 40s-50s, rectal temp 93s. Physical exam reveals disoriented patient, difficult to perform exam. ddx: sepsis, hypoglycemia, AK, CVA, pneumonia, UTI plan: CT head, CT chest, CXR, CBC, CMP, lactate, blood cultures, abx reassess: Discharge - Discharge Information Clinical Impression/Diagnosis: Hypoglycemia Hypothermia Qualifiers: Encounter type: initial encounter Qualified Code(s): T68.XXXA - Hypothermia, initial encounter Sepsis Qualifiers: Sepsis type: sepsis due to unspecified organism Sepsis acute organ dysfunction status: unspecified Qualified Code(s): A41.9 - Sepsis, unspecified organism - Follow up/Referral - Patient Discharge Instructions - Post Discharge Activity
[2019-11-29] MEDS ORDERED: DEXTROSE 50%-WATER - 25 GM/50 ML VIAL IVPUSH ONE (08:44)
[2019-11-29] MEDS ORDERED: DEXTROSE 50%-WATER 25 GM/50 ML DISP.SYRIN ONE (08:52)
[2019-11-29] MEDS ORDERED: AZITHROMYCIN IVPB 500 MG in DEXTROSE 5%-WATER - 250 ML IVPB ONE (09:12)
[2019-11-29] MEDS ORDERED: PIPERACILLIN/TAZOB 4.5 GM 4.5 GM in DEXTROSE 5%-WATER 100 ML IVPB ONE (09:12)
--- NOTE | 2019-11-29 09:34 | PDOC ---
Attending Attestation - Resident Resident Name: Marquise Brandon - ED Attending Attestation I have performed the following: I have examined & evaluated the patient, The case was reviewed & discussed with the resident, I agree w/resident's findings & plan, Exceptions are as noted - HPI HPI: 69 yo M history DM, CHF, ESRD on HD MWF, opioid dependence presents with low blood sugar. Found by family in bed, unresponsive. Unclear if he took his insu raquel, if he ate. Family started CPR, then EMS arrived and found his blood sugar to be low. Given D10 en route. Denies fever, chills, N/V/D, recent illness. - Physicial Exam PE: GENERAL: Somnolent, awakens to voice, follows commands. HEAD: No signs of trauma EYES: PERRLA, EOMI, sclera anicteric, conjunctiva clear ENT: Auricles normal inspection, hearing grossly normal, nares patent, oropharynx clear without exudates. Moist mucosa NECK: Normal ROM, supple, no lymphadenopathy, JVD, or masses LUNGS: Breath sounds equal, clear to auscultation bilaterally. No wheezes, and no crackles. +Catheter to R upper chest wall. HEART: Regular rate and rhythm, normal S1 and S2, no murmurs, rubs or gallops ABDOMEN: Soft, nontender, normoactive bowel sounds. No guarding, no rebound. No masses EXTREMITIES: L forearm with bandage over AVF, +thrill. Normal range of motion, no edema. No clubbing or cyanosis. No cords, erythema, or tenderness NEUROLOGICAL: Cranial nerves II through XII grossly intact. Normal speech. Motor and sensation intact SKIN: Warm, dry, normal turgor, no rashes or lesions noted. - Medical Decision Making 11/29/19 10:03 Pt with hypoglycemia, also found to have hypothermia on arrival. Sepsis workup initiated. CXR shows elevation of R hemidiaphragm. Possibly due to hepatomegaly? Will obtain CT chest to r/o an occult pna in the setting of this finding. Will CTH as well. Will closely monitor blood glucose, as he may have taken insulin without eating. He is too somnolent to eat at this point. Discharge - Discharge Information Problems reviewed: Yes Clinical Impression/Diagnosis: Hypoglycemia Hypothermia Qualifiers: Encounter type: initial encounter Qualified Code(s): T68.XXXA - Hypothermia, initial encounter Sepsis Qualifiers: Sepsis type: sepsis due to unspecified organism Sepsis acute organ dysfunction status: unspecified Qualified Code(s): A41.9 - Sepsis, unspecified organism - Follow up/Referral Referrals: Rex Hillman MD [Primary Care Provider] - - Patient Discharge Instructions - Post Discharge Activity
[2019-11-29 09:38] LABS: VENOUS BASE EXCESS -5.5 mmol/L (-2-2); VENOUS O2 SATURATION 87.1 % (70-80); VENOUS PCO2 52.3 mmHg (38-52); VENOUS PH 7.246 (7.310-7.410)
[2019-11-29] MEDS ORDERED: PIPERACILLIN/TAZOB 4.5 GM 4.5 GM/100 ML BAG IVPB ONE (09:41)
[2019-11-29 09:44] LABS: BASO % 0.3 % (0-2.0); EOS % 0.2 % (0-4.5); HEMATOCRIT 38.4 % (35.4-49); HEMOGLOBIN 12.7 GM/dL (11.7-16.9); LYMPH % 5.6 % (8-40); MCH 31.6 pg (25.7-33.7); MCHC 32.9 g/dl (32.0-35.9); MEAN CELL VOLUME 95.9 fl (80-96); MEAN PLT VOLUME 8.6 fl (7.5-11.1); MONO % 1.9 % (3.8-10.2); PLATELET COUNT 232 K/MM3 (134-434); RBC 4.01 M/mm3 (4.00-5.60); RDW 13.8 % (11.9-15.9); WHITE BLOOD COUNT 9.7 K/mm3 (4.0-10.0)
[2019-11-29] MEDS ORDERED: AZITHROMYCIN IVPB 500 MG/250 ML BAG IVPB ONE (09:58)
[2019-11-29 09:59] VITALS: BMI 25.3
[2019-11-29 10:25] LABS: ALBUMIN 3.2 g/dl (3.4-5.0); BILIRUBIN,TOTAL 0.6 mg/dL (0.2-1); BLOOD UREA NITROGEN 68.6 mg/dL (7-18); CALCIUM 8.1 mg/dL (8.5-10.1); CREATININE 5.5 mg/dL (0.55-1.3); POTASSIUM 5.3 mmol/L (3.5-5.1); TOT PROT 6.4 g/dl (6.4-8.2)
[2019-11-29 10:50] LABS: ARTERIAL BLD GAS O2 SATURATION 37.5 mmHg (95-98); ARTERIAL BLOOD GAS pH 7.231 (7.350-7.450)
[2019-11-29 10:59] LABS: ARTERIAL BLOOD GAS PO2 26.1 mmHg (80-100)
[2019-11-29 11:38] LABS: PH,URINE 5.5 (5.0-8.0); URINE APPEARANCE Clear; URINE BILIRUBIN Negative (NEGATIVE); URINE COLOR Yellow; URINE GLUCOSE (UA) Negative (NEGATIVE); URINE KETONE Negative (NEGATIVE); URINE LEUK ESTERASE 1+ (NEGATIVE); URINE NITRITE Negative (NEGATIVE); URINE PROTEIN 3+ (NEGATIVE); URINE UROBILINOGEN 0.2 mg/dL (0.2-1.0)
[2019-11-29 11:44] LABS: ANISOCYTOSIS 0; MACROCYTOSIS 0; PLATELET ESTIMATE NORMAL
[2019-11-29 12:03] LABS: ARTERIAL BLD GAS O2 SATURATION 96.8 mmHg (95-98); ARTERIAL BLOOD GAS BASE EXCESS -6.5 mmol/L (-2-2); ARTERIAL BLOOD GAS PO2 97.3 mmHg (80-100); ARTERIAL BLOOD GAS pH 7.306 (7.350-7.450)
[2019-11-29 13:37] LABS: EPI CELLS 64.9 /uL (0-25.1); HYALINE CASTS 1.54 /uL (0-3.1); URINE BACTERIA 37.2 /uL (0-1359); URINE WBC 190.3 /uL (0-25.8)
--- NOTE | 2019-11-29 13:56 | CONSULT ---
Consultation: REQUESTING PROVIDER: CONSULT REQUEST: ICU monitoring. HISTORY OF PRESENT ILLNESS: 69 y/o male with PMH of DM, ESRD (on HD M/W/F), HTN presnts to the ED after being found unresponsive at home- as per patient and patients family the son tried calling his father and no one was answering so he went to his apt sw that he was on the floor and attempted to administer mouth to mouth; EMS was called and at that time his blood sugar was found to be in the 50's so he was given 2 amps of d50 en route- in the ED he was given another amp and his mental status went back to baseline. in the ed vitals: initally hypothermic (93 degrees most recent temp 97, with the tutu hugger on) BP systolic in the 250's-160''s ; wbc 9.7; K 5.3 (hemolyzed) ammonia 46; Cr 5.5 UA positive with 190 WBC; cXR shows possible infiltrate @ right base REVIEW OF SYSTEMS: CONSTITUTIONAL: Absent: fever, chills, diaphoresis, generalized weakness, malaise, loss of appetite, weight change HEENT: Absent: rhinorrhea, nasal congestion, throat pain, throat swelling, difficulty swallowing, mouth swelling, ear pain, eye pain, visual changes CARDIOVASCULAR: Absent: chest pain, syncope, palpitations, irregular heart rate, lightheadedness, peripheral edema RESPIRATORY: Absent: cough, shortness of breath, dyspnea with exertion, orthopnea, wheezing, stridor, hemoptysis GASTROINTESTINAL: Absent: abdominal pain, abdominal distension, nausea, vomiting, diarrhea, constipation, melena, hematochezia GENITOURINARY: Present: dysuria Absent: frequency, urgency, hesitancy, hematuria, flank pain, genital pain MUSCULOSKELETAL: Absent: myalgia, arthralgia, joint swelling, back pain, neck pain SKIN: Absent: rash, itching, pallor HEMATOLOGIC/IMMUNOLOGIC: Absent: easy bleeding, easy bruising, lymphadenopathy, frequent infections ENDOCRINE: Absent: unexplained weight gain, unexplained weight loss, heat intolerance, cold intolerance NEUROLOGIC: Absent: headache, focal weakness or paresthesias, dizziness, unsteady gait, seizure, mental status changes, bladder or bowel incontinence PSYCHIATRIC: Absent: anxiety, depression, suicidal or homicidal ideation, hallucinations. PHYSICAL EXAMINATION Vital Signs - 24 hr 11/29/19 11/29/1911/28/20 08:24 08:40 09:30 Temperature 94.4 F L 93.4 F L Pulse Rate 52 L Pulse Rate [ 54 L Apical] Respiratory 14 16 Rate Blood Pressure 158/67 Blood Pressure 164/58 L [Right Arm] O2 Sat by Pulse 99 100 Oximetry (%) 11/29/19 11/29/19 11/29/19 10:40 11:00 13:15 Temperature 94.3 F L 95.2 F L 97 F L Pulse Rate Pulse Rate [ 61 62 63 Apical] Respiratory 12 14 16 Rate Blood Pressure Blood Pressure 164/55 L 149/60 150/62 [Right Arm] O2 Sat by Pulse 98 99 99 Oximetry (%) GENERAL: Awake, alert, and fully oriented, in no acute distress. EYES:PEERLA; EOMI; no scleral icterus NECK: no JVD; no lymphadenopathy LUNGS: CTA B/L no rales, rhonchi or wheezing. HEART: Regular rate and rhythm, normal S1 and S2 without murmur, rub or gallop. ABDOMEN: Soft, NT/ND +BS in all 4 quadrants MUSCULOSKELETAL: Normal range of motion at all joints. No bony deformities or tenderness. No CVA tenderness. EXTREMITIES: warm; well-perfused no clubbing/cyanosis or edema NEUROLOGICAL: Cranial nerves II-XII intact. Normal speech. Normal gait. PSYCHIATRIC: Cooperative. Good eye contact. Appropriate mood and affect. SKIN: Warm, dry, normal turgor, no rashes or lesions noted. Laboratory Results - last 24 hr 11/29/19 11/29/19 11/29/19 08:31 09:10 09:10 WBC 9.7 RBC 4.01 Hgb 12.7 Hct 38.4 D MCV 95.9 MCH 31.6 MCHC 32.9 RDW 13.8 Plt Count 232 MPV 8.6 Absolute Neuts (auto) 8.9 H Neutrophils % 92.0 H D Neutrophils % (Manual) 90.5 H Band Neutrophils % 4.2 Lymphocytes % 5.6 L D Lymphocytes % (Manual) 5.3 L D Monocytes % 1.9 L Monocytes % (Manual) 0 L D Eosinophils % 0.2 D Eosinophils % (Manual) 0.0 Basophils % 0.3 Basophils % (Manual) 0.0 Myelocytes % (Man) 0 Promyelocytes % (Man) 0 Blast Cells % (Manual) 0 Nucleated RBC % 0 Metamyelocytes 0 Hypochromia 0 Platelet Estimate Normal Polychromasia 0 Poikilocytosis 0 Anisocytosis 0 Microcytosis 0 Macrocytosis 0 Anticoagulation Therapy Puncture Site Patient Temperature ABG pH ABG pCO2 ABG pO2 ABG HCO3 ABG O2 Sat (Measured) ABG O2 Content ABG Base Excess Jm Test VBG pH POC VBG pCO2 POC VBG pO2 VBG HCO3 VBG O2 Sat (Frida) VBG Base Excess Patient On Oxygen O2 Delivery Device Oxygen Flow Rate Vent Mode Vent Rate Mechanical Rate PEEP Pressure Support Vent Sodium 137 Potassium 5.3 H Chloride 104 Carbon Dioxide 21 Anion Gap 11 BUN 68.6 H Creatinine 5.5 H Est GFR (CKD-EPI)AfAm 11.12 Est GFR (CKD-EPI)NonAf 9.60 POC Glucometer 107 Random Glucose 198 H Lactic Acid Calcium 8.1 L Total Bilirubin 0.6 AST 21 ALT 24 Alkaline Phosphatase 113 Ammonia Total Protein 6.4 Albumin 3.2 L Urine Color Urine Appearance Urine pH Ur Specific [place] Urine Protein Urine Glucose (UA) Urine Ketones Urine Blood Urine Nitrite Urine Bilirubin Urine Urobilinogen Ur Leukocyte Esterase Urine WBC (Auto) Urine RBC (Auto) Urine Casts (Auto) U Epithel Cells (Auto) U Sm Round Cell (Auto) Urine Bacteria (Auto) 11/29/19 11/29/19 11/29/19 09:10 09:10 09:31 WBC RBC Hgb Hct MCV MCH MCHC RDW Plt Count MPV Absolute Neuts (auto) Neutrophils % Neutrophils % (Manual) Band Neutrophils % Lymphocytes % Lymphocytes % (Manual) Monocytes % Monocytes % (Manual) Eosinophils % Eosinophils % (Manual) Basophils % Basophils % (Manual) Myelocytes % (Man) Promyelocytes % (Man) Blast Cells % (Manual) Nucleated RBC % Metamyelocytes Hypochromia Platelet Estimate Polychromasia Poikilocytosis Anisocytosis Microcytosis Macrocytosis Anticoagulation Therapy Puncture Site Patient Temperature ABG pH ABG pCO2 ABG pO2 ABG HCO3 ABG O2 Sat (Measured) ABG O2 Content ABG Base Excess Jm Test VBG pH 7.246 L POC VBG pCO2 52.3 H POC VBG pO2 61.0 H VBG HCO3 22.2 L VBG O2 Sat (Frida) 87.1 H VBG Base Excess -5.5 L Patient On Oxygen O2 Delivery Device Oxygen Flow Rate Vent Mode Vent Rate Mechanical Rate PEEP Pressure Support Vent Sodium Potassium Chloride Carbon Dioxide Anion Gap BUN Creatinine Est GFR (CKD-EPI)AfAm Est GFR (CKD-EPI)NonAf POC Glucometer 151 Random Glucose Lactic Acid 0.8 Calcium Total Bilirubin AST ALT Alkaline Phosphatase Ammonia Total Protein Albumin Urine Color Urine Appearance Urine pH Ur Specific [place] Urine Protein Urine Glucose (UA) Urine Ketones Urine Blood Urine Nitrite Urine Bilirubin Urine Urobilinogen Ur Leukocyte Esterase Urine WBC (Auto) Urine RBC (Auto) Urine Casts (Auto) U Epithel Cells (Auto) U Sm Round Cell (Auto) Urine Bacteria (Auto) 11/29/19 11/29/19 11/29/19 10:30 10:40 11:20 WBC RBC Hgb Hct MCV MCH MCHC RDW Plt Count MPV Absolute Neuts (auto) Neutrophils % Neutrophils % (Manual) Band Neutrophils % Lymphocytes % Lymphocytes % (Manual) Monocytes % Monocytes % (Manual) Eosinophils % Eosinophils % (Manual) Basophils % Basophils % (Manual) Myelocytes % (Man) Promyelocytes % (Man) Blast Cells % (Manual) Nucleated RBC % Metamyelocytes Hypochromia Platelet Estimate Polychromasia Poikilocytosis Anisocytosis Microcytosis Macrocytosis Anticoagulation Therapy No Result Required. No Result Required. Puncture Site No Result Required. No Result Required. Patient Temperature No Result Required. No Result Required. ABG pH 7.231 L 7.306 L ABG pCO2 56.60 H 39.50 ABG pO2 26.1 L* 97.3 ABG HCO3 23.2 19.3 L ABG O2 Sat (Measured) 37.5 L 96.8 ABG O2 Content No Result Required. No Result Required. ABG Base Excess -5.0 L -6.5 L Jm Test No Result Required. No Result Required. VBG pH POC VBG pCO2 POC VBG pO2 VBG HCO3 VBG O2 Sat (Frida) VBG Base Excess Patient On Oxygen No No Result Required. O2 Delivery Device Room air No Result Required. Oxygen Flow Rate 21% No Result Required. Vent Mode No Result Required. No Result Required. Vent Rate No Result Required. No Result Required. Mechanical Rate No Result Required. No Result Required. PEEP No Result Required. No Result Required. Pressure Support Vent No Result Required. No Result Required. Sodium Potassium Chloride Carbon Dioxide Anion Gap BUN Creatinine Est GFR (CKD-EPI)AfAm Est GFR (CKD-EPI)NonAf POC Glucometer Random Glucose Lactic Acid Calcium Total Bilirubin AST ALT Alkaline Phosphatase Ammonia Total Protein Albumin Urine Color Yellow Urine Appearance Clear Urine pH 5.5 Ur Specific [place] 1.020 Urine Protein 3+ H Urine Glucose (UA) Negative Urine Ketones Negative Urine Blood Trace-lysed Urine Nitrite Negative Urine Bilirubin Negative Urine Urobilinogen 0.2 Ur Leukocyte Esterase 1+ H Urine WBC (Auto) 190.3 Urine RBC (Auto) 8.0 Urine Casts (Auto) 1.54 U Epithel Cells (Auto) 64.9 U Sm Round Cell (Auto) None seen Urine Bacteria (Auto) 37.2 11/29/19 12:00 WBC RBC Hgb Hct MCV MCH MCHC RDW Plt Count MPV Absolute Neuts (auto) Neutrophils % Neutrophils % (Manual) Band Neutrophils % Lymphocytes % Lymphocytes % (Manual) Monocytes % Monocytes % (Manual) Eosinophils % Eosinophils % (Manual) Basophils % Basophils % (Manual) Myelocytes % (Man) Promyelocytes % (Man) Blast Cells % (Manual) Nucleated RBC % Metamyelocytes Hypochromia Platelet Estimate Polychromasia Poikilocytosis Anisocytosis Microcytosis Macrocytosis Anticoagulation Therapy Puncture Site Patient Temperature ABG pH ABG pCO2 ABG pO2 ABG HCO3 ABG O2 Sat (Measured) ABG O2 Content ABG Base Excess Jm Test VBG pH POC VBG pCO2 POC VBG pO2 VBG HCO3 VBG O2 Sat (Frida) VBG Base Excess Patient On Oxygen O2 Delivery Device Oxygen Flow Rate Vent Mode Vent Rate Mechanical Rate PEEP Pressure Support Vent Sodium Potassium Chloride Carbon Dioxide Anion Gap BUN Creatinine Est GFR (CKD-EPI)AfAm Est GFR (CKD-EPI)NonAf POC Glucometer Random Glucose Lactic Acid Calcium Total Bilirubin AST ALT Alkaline Phosphatase Ammonia 41.60 H Total Protein Albumin Urine Color Urine Appearance Urine pH Ur Specific [place] Urine Protein Urine Glucose (UA) Urine Ketones Urine Blood Urine Nitrite Urine Bilirubin Urine Urobilinogen Ur Leukocyte Esterase Urine WBC (Auto) Urine RBC (Auto) Urine Casts (Auto) U Epithel Cells (Auto) U Sm Round Cell (Auto) Urine Bacteria (Auto) ASSESSMENT/PLAN: 69 y/o male with PMH of DM, ESRD (on HD M/W/F), HTN presents to the ED after being found unresponsive at home with blood sugars in the 50's #Neuro patient now back at his baseline mental status -AOx3 -neuro checks #Cardio history of HTN c/w home meds monitor hemodynamics #ENDO DM history -patient found to have BGM in the 40's -ISS ACHS -BGMS ACHS #ID patient found to have a positive UA -f.u blood and urine cx -abx #Pulm stable; no issues monitor respiratory status #Renal ESRD m/w/f -patient missed HD today -primary team to contact Dr. Tate to set up HD patient is hemodynamically stable back at his baseline mental status and does not require ICU monitoring at this time- please reconsult us if necessary Dispo: We will continue to follow the patient. Thank you for this consultative opportunity. Problem List - Problems (1) Hypoglycemia Code(s): E16.2 - HYPOGLYCEMIA, UNSPECIFIED (2) Hypothermia Code(s): T68.XXXA - HYPOTHERMIA, INITIAL ENCOUNTER Qualifiers: Encounter type: initial encounter Qualified Code(s): T68.XXXA - Hypothermia, initial encounter (3) Sepsis Code(s): A41.9 - SEPSIS, UNSPECIFIED ORGANISM Qualifiers: Sepsis type: sepsis due to unspecified organism Sepsis acute organ dysfunction status: unspecified Qualified Code(s): A41.9 - Sepsis, unspecified organism Visit type - Medication Review Med list reviewed for High Risk Meds patients 65 and older: Yes - Emergency Visit Emergency Visit: Yes ED Registration Date: 11/29/19 Care time: The patient presented to the Emergency Department on the above date and was hospitalized for further evaluation of their emergent condition. - New Patient This patient is new to me today: Yes Date on this admission: 11/29/19 - Critical Care Critical Care patient: No ATTENDING PHYSICIAN STATEMENT I saw and evaluated the patient. I reviewed the resident's note and discussed the case with the resident. I agree with the resident's findings and plan as documented. SUBJECTIVE: OBJECTIVE: ASSESSMENT AND PLAN:
--- NOTE | 2019-11-29 14:40 | PN ---
Teaching Attending Note Name of Resident: Nini Driver ATTENDING PHYSICIAN STATEMENT I saw and evaluated the patient. I reviewed the resident's note and discussed the case with the resident. I agree with the resident's findings and plan as documented. SUBJECTIVE: 69 M, DM, ESRD (on HD M/W/F), and HTN. Was previously on HD and stopped. Now on HD for the past 3 months. Recent creation on a LUE vascular access. Found unresponsive at home by his son. Upon EMS arrival blood sugar was 50 and he was given 2 amps of D50. On arrival to the ER with his other son he is back to his baseline. He was found to be hypotehrmic to 95 and placed on a Maria A Hugger with appropriate response. He reports CP or SOB. He does report some urinary burning and hesitancy. Last infection was over 1 year ago. He does have a previous history of nephrolithiasis. Intake & Output 11/26/19 11/27/19 11/28/19 11/29/19 23:59 23:59 23:59 23:59 Weight 157 lb Last Vital Signs Temp Pulse Resp BP Pulse Ox 97 F L 63 16 150/62 99 11/29/19 13:15 11/29/19 13:15 11/29/19 13:15 11/29/19 13:15 11/29/19 13:15 GENERAL: Awake, alert, and fully oriented, in no acute distress. EYES:PEERLA; EOMI; no scleral icterus NECK: no JVD; no lymphadenopathy LUNGS: CTA B/L no rales, rhonchi or wheezing. HEART: Regular rate and rhythm, normal S1 and S2 without murmur, rub or gallop. ABDOMEN: Soft, NT/ND +BS in all 4 quadrants MUSCULOSKELETAL: Normal range of motion at all joints. No bony deformities or tenderness. No CVA tenderness. EXTREMITIES: warm; well-perfused no clubbing/cyanosis or edema NEUROLOGICAL: non-focal PSYCHIATRIC: Cooperative. Good eye contact. Appropriate mood and affect. SKIN: Warm, dry, normal turgor, no rashes or lesions noted. Laboratory Results - last 24 hr 11/29/19 11/29/19 11/29/19 08:31 09:10 09:10 WBC 9.7 RBC 4.01 Hgb 12.7 Hct 38.4 D MCV 95.9 MCH 31.6 MCHC 32.9 RDW 13.8 Plt Count 232 MPV 8.6 Absolute Neuts (auto) 8.9 H Neutrophils % 92.0 H D Neutrophils % (Manual) 90.5 H Band Neutrophils % 4.2 Lymphocytes % 5.6 L D Lymphocytes % (Manual) 5.3 L D Monocytes % 1.9 L Monocytes % (Manual) 0 L D Eosinophils % 0.2 D Eosinophils % (Manual) 0.0 Basophils % 0.3 Basophils % (Manual) 0.0 Myelocytes % (Man) 0 Promyelocytes % (Man) 0 Blast Cells % (Manual) 0 Nucleated RBC % 0 Metamyelocytes 0 Hypochromia 0 Platelet Estimate Normal Polychromasia 0 Poikilocytosis 0 Anisocytosis 0 Microcytosis 0 Macrocytosis 0 Anticoagulation Therapy Puncture Site Patient Temperature ABG pH ABG pCO2 ABG pO2 ABG HCO3 ABG O2 Sat (Measured) ABG O2 Content ABG Base Excess Jm Test VBG pH POC VBG pCO2 POC VBG pO2 VBG HCO3 VBG O2 Sat (Frida) VBG Base Excess Patient On Oxygen O2 Delivery Device Oxygen Flow Rate Vent Mode Vent Rate Mechanical Rate PEEP Pressure Support Vent Sodium 137 Potassium 5.3 H Chloride 104 Carbon Dioxide 21 Anion Gap 11 BUN 68.6 H Creatinine 5.5 H Est GFR (CKD-EPI)AfAm 11.12 Est GFR (CKD-EPI)NonAf 9.60 POC Glucometer 107 Random Glucose 198 H Lactic Acid Calcium 8.1 L Total Bilirubin 0.6 AST 21 ALT 24 Alkaline Phosphatase 113 Ammonia Total Protein 6.4 Albumin 3.2 L Urine Color Urine Appearance Urine pH Ur Specific Hudson Urine Protein Urine Glucose (UA) Urine Ketones Urine Blood Urine Nitrite Urine Bilirubin Urine Urobilinogen Ur Leukocyte Esterase Urine WBC (Auto) Urine RBC (Auto) Urine Casts (Auto) U Epithel Cells (Auto) U Sm Round Cell (Auto) Urine Bacteria (Auto) 11/29/19 11/29/19 11/29/19 09:10 09:10 09:31 WBC RBC Hgb Hct MCV MCH MCHC RDW Plt Count MPV Absolute Neuts (auto) Neutrophils % Neutrophils % (Manual) Band Neutrophils % Lymphocytes % Lymphocytes % (Manual) Monocytes % Monocytes % (Manual) Eosinophils % Eosinophils % (Manual) Basophils % Basophils % (Manual) Myelocytes % (Man) Promyelocytes % (Man) Blast Cells % (Manual) Nucleated RBC % Metamyelocytes Hypochromia Platelet Estimate Polychromasia Poikilocytosis Anisocytosis Microcytosis Macrocytosis Anticoagulation Therapy Puncture Site Patient Temperature ABG pH ABG pCO2 ABG pO2 ABG HCO3 ABG O2 Sat (Measured) ABG O2 Content ABG Base Excess Jm Test VBG pH 7.246 L POC VBG pCO2 52.3 H POC VBG pO2 61.0 H VBG HCO3 22.2 L VBG O2 Sat (Frida) 87.1 H VBG Base Excess -5.5 L Patient On Oxygen O2 Delivery Device Oxygen Flow Rate Vent Mode Vent Rate Mechanical Rate PEEP Pressure Support Vent Sodium Potassium Chloride Carbon Dioxide Anion Gap BUN Creatinine Est GFR (CKD-EPI)AfAm Est GFR (CKD-EPI)NonAf POC Glucometer 151 Random Glucose Lactic Acid 0.8 Calcium Total Bilirubin AST ALT Alkaline Phosphatase Ammonia Total Protein Albumin Urine Color Urine Appearance Urine pH Ur Specific Hudson Urine Protein Urine Glucose (UA) Urine Ketones Urine Blood Urine Nitrite Urine Bilirubin Urine Urobilinogen Ur Leukocyte Esterase Urine WBC (Auto) Urine RBC (Auto) Urine Casts (Auto) U Epithel Cells (Auto) U Sm Round Cell (Auto) Urine Bacteria (Auto) 11/29/19 11/29/19 11/29/19 10:30 10:40 11:20 WBC RBC Hgb Hct MCV MCH MCHC RDW Plt Count MPV Absolute Neuts (auto) Neutrophils % Neutrophils % (Manual) Band Neutrophils % Lymphocytes % Lymphocytes % (Manual) Monocytes % Monocytes % (Manual) Eosinophils % Eosinophils % (Manual) Basophils % Basophils % (Manual) Myelocytes % (Man) Promyelocytes % (Man) Blast Cells % (Manual) Nucleated RBC % Metamyelocytes Hypochromia Platelet Estimate Polychromasia Poikilocytosis Anisocytosis Microcytosis Macrocytosis Anticoagulation Therapy No Result Required. No Result Required. Puncture Site No Result Required. No Result Required. Patient Temperature No Result Required. No Result Required. ABG pH 7.231 L 7.306 L ABG pCO2 56.60 H 39.50 ABG pO2 26.1 L* 97.3 ABG HCO3 23.2 19.3 L ABG O2 Sat (Measured) 37.5 L 96.8 ABG O2 Content No Result Required. No Result Required. ABG Base Excess -5.0 L -6.5 L Jm Test No Result Required. No Result Required. VBG pH POC VBG pCO2 POC VBG pO2 VBG HCO3 VBG O2 Sat (Frida) VBG Base Excess Patient On Oxygen No No Result Required. O2 Delivery Device Room air No Result Required. Oxygen Flow Rate 21% No Result Required. Vent Mode No Result Required. No Result Required. Vent Rate No Result Required. No Result Required. Mechanical Rate No Result Required. No Result Required. PEEP No Result Required. No Result Required. Pressure Support Vent No Result Required. No Result Required. Sodium Potassium Chloride Carbon Dioxide Anion Gap BUN Creatinine Est GFR (CKD-EPI)AfAm Est GFR (CKD-EPI)NonAf POC Glucometer Random Glucose Lactic Acid Calcium Total Bilirubin AST ALT Alkaline Phosphatase Ammonia Total Protein Albumin Urine Color Yellow Urine Appearance Clear Urine pH 5.5 Ur Specific Hudson 1.020 Urine Protein 3+ H Urine Glucose (UA) Negative Urine Ketones Negative Urine Blood Trace-lysed Urine Nitrite Negative Urine Bilirubin Negative Urine Urobilinogen 0.2 Ur Leukocyte Esterase 1+ H Urine WBC (Auto) 190.3 Urine RBC (Auto) 8.0 Urine Casts (Auto) 1.54 U Epithel Cells (Auto) 64.9 U Sm Round Cell (Auto) None seen Urine Bacteria (Auto) 37.2 11/29/19 12:00 WBC RBC Hgb Hct MCV MCH MCHC RDW Plt Count MPV Absolute Neuts (auto) Neutrophils % Neutrophils % (Manual) Band Neutrophils % Lymphocytes % Lymphocytes % (Manual) Monocytes % Monocytes % (Manual) Eosinophils % Eosinophils % (Manual) Basophils % Basophils % (Manual) Myelocytes % (Man) Promyelocytes % (Man) Blast Cells % (Manual) Nucleated RBC % Metamyelocytes Hypochromia Platelet Estimate Polychromasia Poikilocytosis Anisocytosis Microcytosis Macrocytosis Anticoagulation Therapy Puncture Site Patient Temperature ABG pH ABG pCO2 ABG pO2 ABG HCO3 ABG O2 Sat (Measured) ABG O2 Content ABG Base Excess Jm Test VBG pH POC VBG pCO2 POC VBG pO2 VBG HCO3 VBG O2 Sat (Frida) VBG Base Excess Patient On Oxygen O2 Delivery Device Oxygen Flow Rate Vent Mode Vent Rate Mechanical Rate PEEP Pressure Support Vent Sodium Potassium Chloride Carbon Dioxide Anion Gap BUN Creatinine Est GFR (CKD-EPI)AfAm Est GFR (CKD-EPI)NonAf POC Glucometer Random Glucose Lactic Acid Calcium Total Bilirubin AST ALT Alkaline Phosphatase Ammonia 41.60 H Total Protein Albumin Urine Color Urine Appearance Urine pH Ur Specific [place] Urine Protein Urine Glucose (UA) Urine Ketones Urine Blood Urine Nitrite Urine Bilirubin Urine Urobilinogen Ur Leukocyte Esterase Urine WBC (Auto) Urine RBC (Auto) Urine Casts (Auto) U Epithel Cells (Auto) U Sm Round Cell (Auto) Urine Bacteria (Auto) ASSESSMENT/PLAN: Resolved Hypoglycemia R/O Early Sepsis due to a source Recent creation ofa LUE HD access : appears clean and without signs of infection DM ESRD on HD HTN Broad ABX Consider ID evaluation IVF Blood glucose checks Patient currently awake and alert and can take PO HD per Renal Maria A Dyer as needed : temperature is currently normal Follow cultures At this time does not require ICU monitoring as the patient is back to his baseline and hemodyanically stable Please call for any change in condition or for questions. Dr Deshpande
[2019-11-29] MEDS ORDERED: ACETAMINOPHEN 325 MG TABLET (FP) PO PRN (15:31)
--- NOTE | 2019-11-29 15:33 | HP ---
Admitting History and Physical - Primary Care Physician PCP: Rex Hillman - Admission History of Present Illness: Pt seen/ examined on tele chart reviewed d/w pt / pts son who is atbedside In summary 69 year old male with extended history of ESRD on HD, DM, Hypertension, CHF, history of substance abuse on methadone who presented from home with unresponsiveness and hypoglycemia. Pt thinks he took double dose of insulin recently left arm fistula created- pt was also hypothermic-- given abx cultures send responded well to treatment now alert / awake denies any complains now. will be monitoring on tele now History Source: Patient, Family Member Limitations to Obtaining History: No Limitations - Past Medical History Cardiovascular: Yes: CHF, HTN, Hyperlipdemia Pulmonary: Yes: COPD Gastrointestinal: Yes: GERD Hepatobiliary: Yes: Hepatitis C Renal/: Yes: Renal Failure, Renal Inusuff, Hemodialysis Heme/Onc: Yes: Cancer (Lung cancer) Endocrine: Yes: Diabetes Mellitus - Smoking History Smoking history: Never smoked Have you smoked in the past 12 months: No If you are a former smoker, when did you quit?: quit 15 yrs ago - Alcohol/Substance Use Hx Alcohol Use: No History of Substance Use: reports: Cocaine, Heroin - Social History ADL: Independent History of Recent Travel: No Home Medications - Allergies Allergies/Adverse Reactions: Allergies Allergy/AdvReac Type Severity Reaction Status Date / Time No Known Allergies Allergy Verified 11/29/19 13:19 - Home Medications Home Medications: Ambulatory Orders Methadone [Dolophine -] 60 mg PO DAILY@0600 tablet MDD 1 10/18/18 Aspirin [Aspirin EC] 81 mg PO DAILY #30 tablet.dr 10/27/18 Atorvastatin Ca [Lipitor] 20 mg PO HS #30 tablet 10/27/18 Calcium Acetate [Phoslo -] 667 mg PO TIDCM #90 capsule 10/27/18 Cholecalciferol (Vitamin D3) [Dialyvite Vitamin D3 Max] 50,000 unit PO WEEKLY #4 tablet 10/27/18 Isosorbide Mononitrate [Imdur -] 60 mg PO DAILY #30 tab.sr.24h 10/27/18 Labetalol HCl [Normodyne -] 300 mg PO BID #60 tablet 10/27/18 Omeprazole 40 mg PO DAILY 03/22/19 Clonidine Patch [Catapres Tts Patch -] 0.1 mg TD Q7D@1000 #14 patch.tdwk 04/02/19 Insulin Glargine,Hum.rec.anlog [Lantus] 15 unit SQ HS #0 unit 04/02/19 Nifedipine ER [Procardia XL -] 60 mg PO BID #60 tab.er.24 04/02/19 Potassium Chloride 20 meq PO BID #60 tablet.er 04/02/19 Torsemide [Demadex -] 100 mg PO BID@0600,1300 #60 tablet 04/02/19 hydrALAZINE HCL [Apresoline -] 25 mg PO BID #60 tablet 04/02/19 Family Medical History Family Hx Cancer: Sister (Sister lung ca) Family Hx Diabetes: Mother, Sister (Mother and sister both had DM ) Review of Systems Findings/Remarks: see craig Physical Examination Vital Signs: Vital Signs Temperature 98.8 F 11/29/19 14:40 Pulse Rate 72 11/29/19 14:40 Respiratory Rate 18 11/29/19 14:40 Blood Pressure 183/72 H 11/29/19 14:40 O2 Sat by Pulse Oximetry (%) 99 11/29/19 14:40 Constitutional: Yes: No Distress, Calm Eyes: Yes: Conjunctiva Clear Neck: Yes: Supple Respiratory: Yes: CTA Bilaterally Gastrointestinal: Yes: Soft Extremities: Yes: Other (ledt avf-- dressing + chest - permacath) Edema: No Neurological: Yes: Alert Psychiatric: Yes: Alert Labs: CBC, BMP 11/29/19 09:10 11/29/19 09:10 Imaging - Results Chest X-ray: Report Reviewed Cat Scan: Report Reviewed Problem List - Problems (1) Hypoglycemia Code(s): E16.2 - HYPOGLYCEMIA, UNSPECIFIED (2) Hypothermia Code(s): T68.XXXA - HYPOTHERMIA, INITIAL ENCOUNTER Qualifiers: Encounter type: initial encounter Qualified Code(s): T68.XXXA - Hypothermia, initial encounter (3) Sepsis Code(s): A41.9 - SEPSIS, UNSPECIFIED ORGANISM Qualifiers: Sepsis type: sepsis due to unspecified organism Sepsis acute organ dysfunction status: unspecified Qualified Code(s): A41.9 - Sepsis, unspecified organism (4) Diabetes Code(s): E11.9 - TYPE 2 DIABETES MELLITUS WITHOUT COMPLICATIONS Qualifiers: Diabetes mellitus type: type 2 Chronic kidney disease stage: on chronic dialysis (5) End stage renal disease on dialysis Code(s): N18.6 - END STAGE RENAL DISEASE; Z99.2 - DEPENDENCE ON RENAL DIALYSIS Assessment/Plan Admit to tele monitor hold insulin pt has dialysis date today-- renal to follow f/u cultures i/d consult dvt prophylaxis will follow
[2019-11-29] MEDS ORDERED: SODIUM CHLORIDE 250 ML IV PRN (16:31)
--- NOTE | 2019-11-29 16:36 | CON.NEP ---
Consult Consult Specialty:: Nephrology Referred by:: mary Reason for Consultation:: ESRD on HD - History of Present Illness Chief Complaint: Unresponsiveness History of Present Illness: This is a 69 year old male with history of ESRD on HD, DM, Hypertension, CHF, history of substance abuse on methadone who presented from home with unresponsiveness and hypoglycemia. Seen and examined at the bedside. Awake and alert. Feels fine now. Denies any fever, chills, SOB, abd pain, N/V/D. Has some dysuria. No flank pain. No cough. Blood glucose was ~50 in the field. - History Source History Provided By: Patient Limitations to Obtaining History: No Limitations - Past Medical History Cardio/Vascular: Yes: CHF, HTN, Hyperlipdemia Pulmonary: Yes: COPD Gastrointestinal: Yes: GERD Hepatobiliary: Yes: Hepatitis C Renal/: Yes: Renal Failure, Renal Inusuff, Hemodialysis Endocrine: Yes: Diabetes Mellitus - Alcohol/Substance Use Hx Alcohol Use: No History of Substance Use: reports: Cocaine, Heroin - Smoking History Smoking history: Never smoked Have you smoked in the past 12 months: No If you are a former smoker, when did you quit?: quit 15 yrs ago - Social History Usual Living Arrangement: With Spouse ADL: Independent History of Recent Travel: No Home Medications - Allergies Allergies/Adverse Reactions: Allergies Allergy/AdvReac Type Severity Reaction Status Date / Time No Known Allergies Allergy Verified 11/29/19 13:19 - Home Medications Home Medications: Ambulatory Orders Methadone [Dolophine -] 60 mg PO DAILY@0600 tablet MDD 1 10/18/18 Aspirin [Aspirin EC] 81 mg PO DAILY #30 tablet. 10/27/18 Atorvastatin Ca [Lipitor] 20 mg PO HS #30 tablet 10/27/18 Calcium Acetate [Phoslo -] 667 mg PO TIDCM #90 capsule 10/27/18 Cholecalciferol (Vitamin D3) [Dialyvite Vitamin D3 Max] 50,000 unit PO WEEKLY #4 tablet 10/27/18 Isosorbide Mononitrate [Imdur -] 60 mg PO DAILY #30 tab.sr.24h 10/27/18 Labetalol HCl [Normodyne -] 300 mg PO BID #60 tablet 10/27/18 Omeprazole 40 mg PO DAILY 03/22/19 Clonidine Patch [Catapres Tts Patch -] 0.1 mg TD Q7D@1000 #14 patch.tdwk 04/02/19 Insulin Glargine,Hum.rec.anlog [Lantus] 15 unit SQ HS #0 unit 04/02/19 Nifedipine ER [Procardia XL -] 60 mg PO BID #60 tab.er.24 04/02/19 Potassium Chloride 20 meq PO BID #60 tablet.er 04/02/19 Torsemide [Demadex -] 100 mg PO BID@0600,1300 #60 tablet 04/02/19 hydrALAZINE HCL [Apresoline -] 25 mg PO BID #60 tablet 04/02/19 Family Medical History Family History: Unremarkable Family Hx Cancer: Sister (Sister lung ca) Family Hx Diabetes: Mother, Sister (Mother and sister both had DM ) Review of Systems - Review of Systems Constitutional: reports: No Symptoms Eyes: reports: No Symptoms HENT: reports: No Symptoms Neck: reports: No Symptoms Cardiovascular: reports: No Symptoms Respiratory: reports: No Symptoms Gastrointestinal: reports: No Symptoms Genitourinary: reports: No Symptoms Breasts: reports: No Symptoms Reported Musculoskeletal: reports: No Symptoms Nephrology Consult - Height Height: 5 ft 6 in - Weight Weight: 71.214 kg - BMI Body Mass Index (BMI): 25.3 - Lab Results CBC,BMP: CBC, BMP 11/29/19 09:10 11/29/19 09:10 Anion Gap: Anion Gap Anion Gap 11 MMOL/L (8-16) 11/29/19 09:10 - Physical Examination Vital Signs: Vital Signs Temperature 98.8 F 11/29/19 14:40 Pulse Rate 72 11/29/19 14:40 Respiratory Rate 18 11/29/19 14:40 Blood Pressure 183/72 H 11/29/19 14:40 O2 Sat by Pulse Oximetry (%) 99 11/29/19 14:40 Assessment/Plan 69 year old male with history of ESRD on HD, DM, Hypertension, CHF, history of substance abuse on methadone who presented from home with unresponsiveness and hypoglycemia. 1. Hypoglycemia 2. R/o occult infection 3. ESRD on HD 4. Hyperkalemia 5. Renal Osteodystrophy 6. Hx of CHF w/o acute exacerbation Clinically improved and stable. F/u culture to r/o occult infection empiric antibiotics as per primary team Dialysis catheter site, new AVF site w/o signs of infection will give Vanco 1g IV post dialysis for empiric gram + coverage Renal diet monitor blood sugars, adjust DM meds as needed Trend Ca/Phos 1.2L fluid restriction Thank you Dariusz Iniguez DO
[2019-11-29] MEDS ORDERED: VANCOMYCIN 1 GM in D5W (PRE-DOCKED) 1,000 MG/250 ML IVPB ONE (16:39)
[2019-11-29] MEDS: CALCIUM ACETATE 667 MG CAPSULE (FP) PO SCH (17:28)
[2019-11-29] MEDS: INSULIN SLIDING SCALE (NOVOLOG) 1 VIAL SQ SCH (17:29)
[2019-11-29] MEDS: hydrALAZINE HCL 25 MG TABLET (FP) PO SCH ×2 (20:38→21:06)
[2019-11-29] MEDS: LABETALOL HCL 100 MG TABLET (FP) PO SCH ×2 (20:39→21:06)
[2019-11-29] MEDS: NIFEdipine E.R 60 MG TABLET PO SCH ×2 (20:39→21:06)
[2019-11-30] MEDS ORDERED: LABETALOL HCL 100 MG TABLET (FP) PO ONE (05:54)
[2019-11-30] MEDS ORDERED: METHADONE HCL 40 MG DISPERSABLE TABLET PO SCH (06:00)
[2019-11-30] MEDS: TORSEMIDE 100 MG TABLET PO SCH ×2 (06:23→12:13)
[2019-11-30 06:26] LABS: BASO % 0.9 % (0-2.0); EOS % 1.1 % (0-4.5); HEMOGLOBIN 11.9 GM/dL (11.7-16.9); LYMPH % 16.4 % (8-40); MEAN CELL VOLUME 93.9 fl (80-96); MEAN PLT VOLUME 8.1 fl (7.5-11.1); MONO % 7.8 % (3.8-10.2); NEUT % 73.8 % (42.8-82.8); PLATELET COUNT 224 K/MM3 (134-434); RBC 3.83 M/mm3 (4.00-5.60); WHITE BLOOD COUNT 7.4 K/mm3 (4.0-10.0)
[2019-11-30] MEDS: INSULIN SLIDING SCALE (NOVOLOG) 1 VIAL SQ SCH ×2 (06:27→17:29)
[2019-11-30 06:48] LABS: ALBUMIN 2.9 g/dl (3.4-5.0); BILIRUBIN,TOTAL 0.3 mg/dL (0.2-1); CALCIUM 7.8 mg/dL (8.5-10.1); CREATININE 3.9 mg/dL (0.55-1.3); POTASSIUM 3.9 mmol/L (3.5-5.1); TOT PROT 5.9 g/dl (6.4-8.2)
[2019-11-30 06:56] LABS: BLOOD UREA NITROGEN 36.7 mg/dL (7-18)
--- NOTE | 2019-11-30 09:51 | PN ---
Progress Note (short form) - Note Progress Note: anxious He not receive Methadone yet No sob no chest pain no weakness he is walking around in the room Vital Signs - 24 hr 11/29/19 11/29/19 11/29/19 10:40 11:00 13:15 Temperature 94.3 F L 95.2 F L 97 F L Pulse Rate Pulse Rate [ 61 62 63 Apical] Respiratory 12 14 16 Rate Blood Pressure Blood Pressure 164/55 L 149/60 150/62 [Right Arm] O2 Sat by Pulse 98 99 99 Oximetry (%) 11/29/19 11/29/19 11/29/19 14:40 15:28 17:00 Temperature 98.8 F 97.7 F 98.1 F Pulse Rate 74 68 Pulse Rate [ 72 Apical] Respiratory 18 20 20 Rate Blood Pressure 159/73 174/76 H Blood Pressure 183/72 H [Right Arm] O2 Sat by Pulse 99 99 Oximetry (%) 11/29/19 11/29/19 11/29/19 17:10 17:15 17:45 Temperature 98.6 F Pulse Rate 67 68 68 Pulse Rate [ Apical] Respiratory 18 18 18 Rate Blood Pressure 167/63 172/66 H 158/59 L Blood Pressure [Right Arm] O2 Sat by Pulse Oximetry (%) 11/29/19 11/29/19 11/29/19 18:15 18:45 19:15 Temperature Pulse Rate 75 67 64 Pulse Rate [ Apical] Respiratory 18 18 18 Rate Blood Pressure 172/79 H 162/68 144/62 Blood Pressure [Right Arm] O2 Sat by Pulse Oximetry (%) 11/29/19 11/29/19 11/29/19 19:45 20:15 20:32 Temperature 98.2 F Pulse Rate 68 78 74 Pulse Rate [ Apical] Respiratory 18 18 20 Rate Blood Pressure 165/70 180/77 H 193/84 H Blood Pressure [Right Arm] O2 Sat by Pulse 98 Oximetry (%) 11/29/19 11/29/19 11/30/19 20:41 21:00 01:31 Temperature 98.5 F Pulse Rate 66 62 Pulse Rate [ Apical] Respiratory 18 18 20 Rate Blood Pressure 176/66 H 185/68 H Blood Pressure [Right Arm] O2 Sat by Pulse 98 97 Oximetry (%) 11/30/19 11/30/19 11/30/19 01:32 02:26 04:38 Temperature Pulse Rate Pulse Rate [ Apical] Respiratory Rate Blood Pressure 190/59 H 180/66 H 192/76 H Blood Pressure [Right Arm] O2 Sat by Pulse Oximetry (%) 11/30/19 11/30/19 05:37 06:25 Temperature 97.9 F Pulse Rate 64 74 Pulse Rate [ Apical] Respiratory 18 Rate Blood Pressure 201/76 H 199/67 H Blood Pressure [Right Arm] O2 Sat by Pulse 98 Oximetry (%) Current Medications Generic Name Dose Route Start Last Admin Trade Name Freq PRN Reason Stop Dose Admin Acetaminophen 650 mg 11/29/19 15:31 Tylenol - PO Q6H PRN PAIN LEVEL 1-5 Aspirin 81 mg 11/30/19 10:00 Ecotrin - PO DAILY [facility] Calcium Acetate 667 mg 11/29/19 17:30 11/29/19 17:28 Phoslo - PO Not Given TIDCM [facility] Clonidine HCl 0.1 mg 12/03/19 10:00 Catapres Tts Patch - TD Q7D@1000 [facility] Enoxaparin Sodium 30 mg 11/30/19 10:00 Lovenox - SQ DAILY [facility] Hydralazine HCl 25 mg 11/29/19 22:00 11/29/19 21:06 Apresoline - PO Not Given BID [facility] Sodium Chloride 250 mls @ 3,000 mls/hr 11/29/19 16:31 Normal Saline - IV 11/30/19 16:31 PRN PRN Hypotension during Dialysis Insulin Aspart 1 vial 11/29/19 16:30 11/30/19 06:27 Novolog Vial Sliding Scale - SQ Not Given BIDAC [facility] Protocol Isosorbide Mononitrate 60 mg 11/30/19 10:00 Imdur - PO DAILY [facility] Labetalol HCl 300 mg 11/29/19 22:00 11/29/19 21:06 Normodyne - PO Not Given BID [facility] Methadone HCl 60 mg 11/30/19 06:00 Dolophine - PO DAILY@0600 [facility] Nifedipine 60 mg 11/29/19 22:00 11/29/19 21:06 Procardia Xl - PO Not Given BID [facility] Pantoprazole Sodium 40 mg 11/30/19 10:00 Protonix - PO DAILY [facility] Torsemide 100 mg 11/30/19 06:00 11/30/19 06:23 Demadex - PO 100 mg BID@0600,1300 [facility] Administration Vancomycin HCl 1,000 mg 11/29/19 16:39 Vancomycin (Pre-Docked) IVPB 11/29/19 16:40 ONCE ONE Protocol Laboratory Results - last 24 hr 11/29/19 11/29/19 11/29/19 09:10 09:10 09:10 WBC RBC Hgb Hct MCV MCH MCHC RDW Plt Count MPV Absolute Neuts (auto) Neutrophils % Neutrophils % (Manual) 90.5 H Band Neutrophils % 4.2 Lymphocytes % Lymphocytes % (Manual) 5.3 L D Monocytes % Monocytes % (Manual) 0 L D Eosinophils % Eosinophils % (Manual) 0.0 Basophils % Basophils % (Manual) 0.0 Myelocytes % (Man) 0 Promyelocytes % (Man) 0 Blast Cells % (Manual) 0 Nucleated RBC % 0 Metamyelocytes 0 Hypochromia 0 Platelet Estimate Normal Polychromasia 0 Poikilocytosis 0 Anisocytosis 0 Microcytosis 0 Macrocytosis 0 Anticoagulation Therapy Puncture Site Patient Temperature ABG pH ABG pCO2 ABG pO2 ABG HCO3 ABG O2 Sat (Measured) ABG O2 Content ABG Base Excess Jm Test Patient On Oxygen O2 Delivery Device Oxygen Flow Rate Vent Mode Vent Rate Mechanical Rate PEEP Pressure Support Vent Sodium 137 Potassium 5.3 H Chloride 104 Carbon Dioxide 21 Anion Gap 11 BUN 68.6 H Creatinine 5.5 H Est GFR (CKD-EPI)AfAm 11.12 Est GFR (CKD-EPI)NonAf 9.60 POC Glucometer Random Glucose 198 H Hemoglobin A1c % Lactic Acid 0.8 Calcium 8.1 L Magnesium Total Bilirubin 0.6 AST 21 ALT 24 Alkaline Phosphatase 113 Ammonia Total Protein 6.4 Albumin 3.2 L TSH Urine Color Urine Appearance Urine pH Ur Specific Sturgeon Urine Protein Urine Glucose (UA) Urine Ketones Urine Blood Urine Nitrite Urine Bilirubin Urine Urobilinogen Ur Leukocyte Esterase Urine WBC (Auto) Urine RBC (Auto) Urine Casts (Auto) U Epithel Cells (Auto) U Sm Round Cell (Auto) Urine Bacteria (Auto) 11/29/19 11/29/19 11/29/19 10:30 10:40 11:20 WBC RBC Hgb Hct MCV MCH MCHC RDW Plt Count MPV Absolute Neuts (auto) Neutrophils % Neutrophils % (Manual) Band Neutrophils % Lymphocytes % Lymphocytes % (Manual) Monocytes % Monocytes % (Manual) Eosinophils % Eosinophils % (Manual) Basophils % Basophils % (Manual) Myelocytes % (Man) Promyelocytes % (Man) Blast Cells % (Manual) Nucleated RBC % Metamyelocytes Hypochromia Platelet Estimate Polychromasia Poikilocytosis Anisocytosis Microcytosis Macrocytosis Anticoagulation Therapy No Result Required. No Result Required. Puncture Site No Result Required. No Result Required. Patient Temperature No Result Required. No Result Required. ABG pH 7.231 L 7.306 L ABG pCO2 56.60 H 39.50 ABG pO2 26.1 L* 97.3 ABG HCO3 23.2 19.3 L ABG O2 Sat (Measured) 37.5 L 96.8 ABG O2 Content No Result Required. No Result Required. ABG Base Excess -5.0 L -6.5 L Jm Test No Result Required. No Result Required. Patient On Oxygen No No Result Required. O2 Delivery Device Room air No Result Required. Oxygen Flow Rate 21% No Result Required. Vent Mode No Result Required. No Result Required. Vent Rate No Result Required. No Result Required. Mechanical Rate No Result Required. No Result Required. PEEP No Result Required. No Result Required. Pressure Support Vent No Result Required. No Result Required. Sodium Potassium Chloride Carbon Dioxide Anion Gap BUN Creatinine Est GFR (CKD-EPI)AfAm Est GFR (CKD-EPI)NonAf POC Glucometer Random Glucose Hemoglobin A1c % Lactic Acid Calcium Magnesium Total Bilirubin AST ALT Alkaline Phosphatase Ammonia Total Protein Albumin TSH Urine Color Yellow Urine Appearance Clear Urine pH 5.5 Ur Specific [place] 1.020 Urine Protein 3+ H Urine Glucose (UA) Negative Urine Ketones Negative Urine Blood Trace-lysed Urine Nitrite Negative Urine Bilirubin Negative Urine Urobilinogen 0.2 Ur Leukocyte Esterase 1+ H Urine WBC (Auto) 190.3 Urine RBC (Auto) 8.0 Urine Casts (Auto) 1.54 U Epithel Cells (Auto) 64.9 U Sm Round Cell (Auto) None seen Urine Bacteria (Auto) 37.2 11/29/19 11/29/19 11/30/19 12:00 17:27 05:40 WBC 7.4 RBC 3.83 L Hgb 11.9 Hct 36.0 MCV 93.9 MCH 31.0 MCHC 33.0 RDW 14.0 Plt Count 224 MPV 8.1 Absolute Neuts (auto) 5.5 Neutrophils % 73.8 Neutrophils % (Manual) Band Neutrophils % Lymphocytes % 16.4 D Lymphocytes % (Manual) Monocytes % 7.8 D Monocytes % (Manual) Eosinophils % 1.1 D Eosinophils % (Manual) Basophils % 0.9 Basophils % (Manual) Myelocytes % (Man) Promyelocytes % (Man) Blast Cells % (Manual) Nucleated RBC % 0 Metamyelocytes Hypochromia Platelet Estimate Polychromasia Poikilocytosis Anisocytosis Microcytosis Macrocytosis Anticoagulation Therapy Puncture Site Patient Temperature ABG pH ABG pCO2 ABG pO2 ABG HCO3 ABG O2 Sat (Measured) ABG O2 Content ABG Base Excess Jm Test Patient On Oxygen O2 Delivery Device Oxygen Flow Rate Vent Mode Vent Rate Mechanical Rate PEEP Pressure Support Vent Sodium Potassium Chloride Carbon Dioxide Anion Gap BUN Creatinine Est GFR (CKD-EPI)AfAm Est GFR (CKD-EPI)NonAf POC Glucometer 141 Random Glucose Hemoglobin A1c % Lactic Acid Calcium Magnesium Total Bilirubin AST ALT Alkaline Phosphatase Ammonia 41.60 H Total Protein Albumin TSH Urine Color Urine Appearance Urine pH Ur Specific [place] Urine Protein Urine Glucose (UA) Urine Ketones Urine Blood Urine Nitrite Urine Bilirubin Urine Urobilinogen Ur Leukocyte Esterase Urine WBC (Auto) Urine RBC (Auto) Urine Casts (Auto) U Epithel Cells (Auto) U Sm Round Cell (Auto) Urine Bacteria (Auto) 11/30/19 11/30/19 11/30/19 05:40 05:40 05:55 WBC RBC Hgb Hct MCV MCH MCHC RDW Plt Count MPV Absolute Neuts (auto) Neutrophils % Neutrophils % (Manual) Band Neutrophils % Lymphocytes % Lymphocytes % (Manual) Monocytes % Monocytes % (Manual) Eosinophils % Eosinophils % (Manual) Basophils % Basophils % (Manual) Myelocytes % (Man) Promyelocytes % (Man) Blast Cells % (Manual) Nucleated RBC % Metamyelocytes Hypochromia Platelet Estimate Polychromasia Poikilocytosis Anisocytosis Microcytosis Macrocytosis Anticoagulation Therapy Puncture Site Patient Temperature ABG pH ABG pCO2 ABG pO2 ABG HCO3 ABG O2 Sat (Measured) ABG O2 Content ABG Base Excess Jm Test Patient On Oxygen O2 Delivery Device Oxygen Flow Rate Vent Mode Vent Rate Mechanical Rate PEEP Pressure Support Vent Sodium 140 Potassium 3.9 Chloride 104 Carbon Dioxide 29 Anion Gap 8 BUN 36.7 H Creatinine 3.9 H Est GFR (CKD-EPI)AfAm 16.86 Est GFR (CKD-EPI)NonAf 14.54 POC Glucometer 94 Random Glucose 93 Hemoglobin A1c % 5.9 Lactic Acid Calcium 7.8 L Magnesium 2.0 Total Bilirubin 0.3 AST 21 ALT 22 Alkaline Phosphatase 106 Ammonia Total Protein 5.9 L Albumin 2.9 L TSH 1.25 D Urine Color Urine Appearance Urine pH Ur Specific [place] Urine Protein Urine Glucose (UA) Urine Ketones Urine Blood Urine Nitrite Urine Bilirubin Urine Urobilinogen Ur Leukocyte Esterase Urine WBC (Auto) Urine RBC (Auto) Urine Casts (Auto) U Epithel Cells (Auto) U Sm Round Cell (Auto) Urine Bacteria (Auto) S1 S2 RRR Lungs clear Abd- soft, NT No edema A.P ?sepsis-- blood cultures negative -- urine cultures positive received iv antibiotics -- ID consult AMS -- due to ?sepsis, hypoglycemia, pt thinks he took double dose insulin A1 C 5.9-- dc Insulin restart Methadone continue with meds -- HD yesterday Problem List - Problems (1) Hypoglycemia Code(s): E16.2 - HYPOGLYCEMIA, UNSPECIFIED (2) Hypothermia Code(s): T68.XXXA - HYPOTHERMIA, INITIAL ENCOUNTER Qualifiers: Encounter type: initial encounter Qualified Code(s): T68.XXXA - Hypothermia, initial encounter (3) Sepsis Code(s): A41.9 - SEPSIS, UNSPECIFIED ORGANISM Qualifiers: Sepsis type: sepsis due to unspecified organism Sepsis acute organ dysfunction status: unspecified Qualified Code(s): A41.9 - Sepsis, unspecified organism (4) COPD (chronic obstructive pulmonary disease) Code(s): J44.9 - CHRONIC OBSTRUCTIVE PULMONARY DISEASE, UNSPECIFIED (5) End stage renal disease on dialysis Code(s): N18.6 - END STAGE RENAL DISEASE; Z99.2 - DEPENDENCE ON RENAL DIALYSIS
[2019-11-30] MEDS ORDERED: PATIENT'S OWN MEDICATION (NON-FORMULARY) (Omeprazole [Omeprazole] 40 MG) PO SCH (10:00)
[2019-11-30] MEDS: hydrALAZINE HCL 25 MG TABLET (FP) PO SCH ×2 (10:14→21:25)
[2019-11-30] MEDS: ENOXAPARIN NA (PORCINE) 30 MG/0.3 ML DISP.SYRIN SQ SCH (10:14)
[2019-11-30] MEDS: LABETALOL HCL 100 MG TABLET (FP) PO SCH ×2 (10:14→21:24)
[2019-11-30] MEDS: CALCIUM ACETATE 667 MG CAPSULE (FP) PO SCH ×3 (10:14→17:29)
[2019-11-30] MEDS: ASPIRIN COATED 81 MG TABLET.EC PO SCH (10:14)
[2019-11-30] MEDS: PANTOPRAZOLE 40 MG TABLET PO SCH (10:15)
[2019-11-30] MEDS ORDERED: METHADONE HCL 10 MG TABLET (FOR DETOX USE ONLY) PO ONE (10:15)
[2019-11-30] MEDS: NIFEdipine E.R 60 MG TABLET PO SCH ×2 (10:15→21:24)
[2019-11-30] MEDS: ISOSORBIDE MONONITRATE 60 MG TAB.SR.24H (FP) PO SCH (10:15)
[2019-11-30] MEDS ORDERED: METHADONE HCL 40 MG DISPERSABLE TABLET ONE (10:21)
[2019-11-30] MEDS ORDERED: METHADONE HCL 10 MG TABLET ONE (10:22)
[2019-11-30] MEDS: METHADONE 40 MG, METHADONE 20 MG PO SCH (10:22)
--- NOTE | 2019-11-30 14:32 | PN ---
Progress Note (short form) - Note Progress Note: ID consult dictated change in mental status due to hypoglycemia-ttok extra insulin at home UTI-dysuria for several days now s/p avf creation on esrd/hd hypothermia resolved group b strep in urine po amox 500 bid for 10 days blood cultures negative
--- NOTE | 2019-11-30 17:48 | PN ---
Progress Note (short form) - Note Progress Note: Problems 1. Hypoglycemia 2. R/o occult infection 3. ESRD on HD 4. Hyperkalemia 5. Renal Osteodystrophy 6. Hx of CHF w/o acute exacerbation Active Medications Acetaminophen (Tylenol -) 650 mg PO Q6H PRN PRN Reason: PAIN LEVEL 1-5 Amoxicillin (Amoxicillin -) 500 mg PO BID [facility] Aspirin (Ecotrin -) 81 mg PO DAILY [facility] Last Admin: 11/30/19 10:14 Dose: 81 mg Documented by: Calcium Acetate (Phoslo -) 667 mg PO TIDCM [facility] Last Admin: 11/30/19 17:29 Dose: 667 mg Documented by: Clonidine HCl (Catapres Tts Patch -) 0.1 mg TD Q7D@1000 [facility] Enoxaparin Sodium (Lovenox -) 30 mg SQ DAILY [facility] Last Admin: 11/30/19 10:14 Dose: 30 mg Documented by: Hydralazine HCl (Apresoline -) 25 mg PO BID [facility] Last Admin: 11/30/19 10:14 Dose: 25 mg Documented by: Sodium Chloride (Normal Saline -) 250 mls @ 3,000 mls/hr IV PRN PRN PRN Reason: Hypotension during Dialysis Stop: 11/30/19 16:31 Insulin Aspart ([facility] Vial Sliding Scale -[facility] Last Admin: 11/30/19 17:29 Dose: 6 units Documented by: Isosorbide Mononitrate (Imdur -) 60 mg PO DAILY [facility] Last Admin: 11/30/19 10:15 Dose: 60 mg Documented by: Labetalol HCl (Normodyne -) 300 mg PO BID [facility] Last Admin: 11/30/19 10:14 Dose: 300 mg Documented by: Methadone HCl 40 mg/ Methadone (HCl 20 mg) 60 mg PO DAILY@0600 [facility] Last Admin: 11/30/19 10:22 Dose: 60 mg Documented by: Nifedipine (Procardia Xl -) 60 mg PO BID [facility] Last Admin: 11/30/19 10:15 Dose: 60 mg Documented by: Pantoprazole Sodium (Protonix -) 40 mg PO DAILY [facility] Last Admin: 11/30/19 10:15 Dose: 40 mg Documented by: Torsemide (Demadex -) 100 mg PO BID@0600,1300 [facility] Last Admin: 11/30/19 12:13 Dose: 100 mg Documented by: Vancomycin HCl (Vancomycin (Pre-Docked)) 1,000 mg IVPB ONCE ONE; Protocol Stop: 11/29/19 16:40 Last Vital Signs Temp Pulse Resp BP Pulse Ox 98.2 F 66 22 H 121/50 L 96 11/30/19 15:00 11/30/19 15:00 11/30/19 15:00 11/30/19 15:00 11/30/19 15:00 Lungs clear Heart reg Abd soft nontender Ext no edema CBC, BMP 11/30/19 05:40 11/30/19 05:40 ESRD on HD MWF s/p Hypoglycemia Plan- F/u culture to r/o occult infection empiric antibiotics as per primary team Dialysis catheter site, new AVF site w/o signs of infection will give Vanco 1g IV post dialysis for empiric gram + coverage Renal diet monitor blood sugars, adjust DM meds as needed Trend Ca/Phos 1.2L fluid restriction
--- NOTE | 2019-11-30 18:18 | CONS ---
INFECTIOUS DISEASE CONSULTATION DATE OF CONSULTATION: DATE OF DICTATION: 11/30/2019 This is a 69-year-old man. He has end-stage renal disease. He has recently been on dialysis. He also urinates. He reports dysuria for the last 4 days. He has diabetes, takes insulin. On Monday, he had an AV fistula created in his left arm. He presented from home with unresponsiveness. His family started CPR at home. When EMS came, they found that he was hypoglycemic, and he responded to glucose. He is at his baseline now. I am asked to see him. He had some hypothermia in the ER. Asked to see him for further evaluation. The hypothermia has now resolved. He got a dose of Zosyn and Zithromax in the ER. He had an extensive workup in the ER that included a CAT scan of the chest that showed no infiltrates. He had a head CT that shows old lacunar infarcts, but no new processes. He is currently awake and alert without any complaints. His hypothermia has resolved. ALLERGIES: He has no known drug allergies. PAST MEDICAL HISTORY: Notable for end-stage renal disease on dialysis. He reports this was recently started. He has a PermCath in place and had an AV fistula created on Monday. He has a history of diabetes, hypertension, congestive heart failure, substance use. He has had lung cancer. He has a history of hepatitis C as well. SURGICAL HISTORY: Notable for thoracotomy. SOCIAL HISTORY: He quit smoking 15 years ago. Former substance use, none recent. Lives in the community. No recent travel. MEDICATIONS AT HOME: Include methadone, aspirin, atorvastatin, calcium acetate, vitamin D3, Imdur, labetalol, omeprazole, clonidine, insulin, nifedipine, potassium chloride, furosemide, and hydralazine. FAMILY HISTORY: Notable for lung cancer and diabetes. REVIEW OF SYSTEMS: He has no cough. He has no fevers. Dysuria is improved and almost resolved. He is otherwise asymptomatic and feels well. He reports he took extra insulin at home on the day that he became hypoglycemic. PHYSICAL EXAMINATION: Vital Signs: He is afebrile. Current temperature is 97.8. Pulse is 73. Blood pressure 203/73. Respiratory rate is 22. He is saturating 96% on room air. HEENT: He is normocephalic. His eyes are anicteric. Neck: Supple. Lungs: Clear to auscultation. Heart: Regular rate and rhythm. Abdomen: Soft, nontender. He has no CVA or suprapubic pain. Extremities: Without edema. PermCath site is without erythema. AV fistula has a postoperative dressing intact and has a nice thrill. LABORATORY DATA: White count on admission was 9.7; repeat is 7.4. Platelets are 224. Hemoglobin is 11.9. BUN is 36 and creatinine 3.9 with normal LFTs. Ammonia was elevated at 41. Urinalysis had 1+ leukocyte esterase with 190 white cells. His COVID serology is pending. Blood cultures are negative at 24 hours, and urine culture has grown 100,000 group B streptococcus. In summary, this is a 69-year-old man who presents with: 1. Change in mental status due to hypoglycemia, most likely secondary to extra insulin at home. 2. Urinary tract infection that is symptomatic with dysuria for several days, group B streptococcus. Can treat with oral amoxicillin 500 b.i.d. for 10 days. 3. End-stage renal disease, hemodialysis. PermCath site looks fine. He is status post arteriovenous fistula creation on Monday. Blood cultures are negative at 24 hours. 4. Hypothermia has resolved. Please call back if needed if his blood cultures are positive. Otherwise, he can be treated with amoxicillin 500 b.i.d. for 10 days. NARDA MORRISON M.D. [id number]
[2019-11-30] MEDS: AMOXICILLIN 500 MG CAPSULE (FP) PO SCH (21:24)
[2019-12-01] MEDS ORDERED: METHADONE HCL 10 MG TABLET ONE (05:57)
[2019-12-01] MEDS ORDERED: METHADONE HCL 40 MG DISPERSABLE TABLET ONE (05:57)
[2019-12-01] MEDS ORDERED: METHADONE HCL 10 MG TABLET PO SCH (06:00)
[2019-12-01] MEDS: TORSEMIDE 100 MG TABLET PO SCH ×2 (06:09→12:16)
[2019-12-01] MEDS: METHADONE 40 MG, METHADONE 20 MG PO SCH (06:09)
[2019-12-01] MEDS: INSULIN SLIDING SCALE (NOVOLOG) 1 VIAL SQ SCH ×3 (06:12→21:01)
[2019-12-01] MEDS: CALCIUM ACETATE 667 MG CAPSULE (FP) PO SCH ×3 (08:03→18:00)
[2019-12-01] MEDS: LABETALOL HCL 100 MG TABLET (FP) PO SCH ×2 (09:26→21:01)
[2019-12-01] MEDS: ISOSORBIDE MONONITRATE 60 MG TAB.SR.24H (FP) PO SCH (09:26)
[2019-12-01] MEDS: ASPIRIN COATED 81 MG TABLET.EC PO SCH (09:27)
[2019-12-01] MEDS: hydrALAZINE HCL 25 MG TABLET (FP) PO SCH ×2 (09:27→21:01)
[2019-12-01] MEDS: AMOXICILLIN 500 MG CAPSULE (FP) PO SCH ×2 (09:27→21:01)
[2019-12-01] MEDS: ENOXAPARIN NA (PORCINE) 30 MG/0.3 ML DISP.SYRIN SQ SCH (09:27)
[2019-12-01] MEDS: NIFEdipine E.R 60 MG TABLET PO SCH ×2 (09:27→21:01)
[2019-12-01] MEDS: PANTOPRAZOLE 40 MG TABLET PO SCH (09:27)
--- NOTE | 2019-12-01 14:21 | PN ---
Progress Note (short form) - Note Progress Note: noted to have low blood sugars in the evening. Patient is not taking insulin now Laboratory Results - last 24 hr 11/29/19 11/29/19 11/29/19 09:10 09:10 09:10 WBC RBC Hgb Hct MCV MCH MCHC RDW Plt Count MPV Absolute Neuts (auto) Neutrophils % Neutrophils % (Manual) 90.5 H Band Neutrophils % 4.2 Lymphocytes % Lymphocytes % (Manual) 5.3 L D Monocytes % Monocytes % (Manual) 0 L D Eosinophils % Eosinophils % (Manual) 0.0 Basophils % Basophils % (Manual) 0.0 Myelocytes % (Man) 0 Promyelocytes % (Man) 0 Blast Cells % (Manual) 0 Nucleated RBC % 0 Metamyelocytes 0 Hypochromia 0 Platelet Estimate Normal Polychromasia 0 Poikilocytosis 0 Anisocytosis 0 Microcytosis 0 Macrocytosis 0 Anticoagulation Therapy Puncture Site Patient Temperature ABG pH ABG pCO2 ABG pO2 ABG HCO3 ABG O2 Sat (Measured) ABG O2 Content ABG Base Excess Jm Test Patient On Oxygen O2 Delivery Device Oxygen Flow Rate Vent Mode Vent Rate Mechanical Rate PEEP Pressure Support Vent Sodium 137 Potassium 5.3 H Chloride 104 Carbon Dioxide 21 Anion Gap 11 BUN 68.6 H Creatinine 5.5 H Est GFR (CKD-EPI)AfAm 11.12 Est GFR (CKD-EPI)NonAf 9.60 POC Glucometer Random Glucose 198 H Hemoglobin A1c % Lactic Acid 0.8 Calcium 8.1 L Magnesium Total Bilirubin 0.6 AST 21 ALT 24 Alkaline Phosphatase 113 Ammonia Total Protein 6.4 Albumin 3.2 L TSH Urine Color Urine Appearance Urine pH Ur Specific [place] Urine Protein Urine Glucose (UA) Urine Ketones Urine Blood Urine Nitrite Urine Bilirubin Urine Urobilinogen Ur Leukocyte Esterase Urine WBC (Auto) Urine RBC (Auto) Urine Casts (Auto) U Epithel Cells (Auto) U Sm Round Cell (Auto) Urine Bacteria (Auto) 11/29/19 11/29/19 11/29/19 10:30 10:40 11:20 WBC RBC Hgb Hct MCV MCH MCHC RDW Plt Count MPV Absolute Neuts (auto) Neutrophils % Neutrophils % (Manual) Band Neutrophils % Lymphocytes % Lymphocytes % (Manual) Monocytes % Monocytes % (Manual) Eosinophils % Eosinophils % (Manual) Basophils % Basophils % (Manual) Myelocytes % (Man) Promyelocytes % (Man) Blast Cells % (Manual) Nucleated RBC % Metamyelocytes Hypochromia Platelet Estimate Polychromasia Poikilocytosis Anisocytosis Microcytosis Macrocytosis Anticoagulation Therapy No Result Required. No Result Required. Puncture Site No Result Required. No Result Required. Patient Temperature No Result Required. No Result Required. ABG pH 7.231 L 7.306 L ABG pCO2 56.60 H 39.50 ABG pO2 26.1 L* 97.3 ABG HCO3 23.2 19.3 L ABG O2 Sat (Measured) 37.5 L 96.8 ABG O2 Content No Result Required. No Result Required. ABG Base Excess -5.0 L -6.5 L Jm Test No Result Required. No Result Required. Patient On Oxygen No No Result Required. O2 Delivery Device Room air No Result Required. Oxygen Flow Rate 21% No Result Required. Vent Mode No Result Required. No Result Required. Vent Rate No Result Required. No Result Required. Mechanical Rate No Result Required. No Result Required. PEEP No Result Required. No Result Required. Pressure Support Vent No Result Required. No Result Required. Sodium Potassium Chloride Carbon Dioxide Anion Gap BUN Creatinine Est GFR (CKD-EPI)AfAm Est GFR (CKD-EPI)NonAf POC Glucometer Random Glucose Hemoglobin A1c % Lactic Acid Calcium Magnesium Total Bilirubin AST ALT Alkaline Phosphatase Ammonia Total Protein Albumin TSH Urine Color Yellow Urine Appearance Clear Urine pH 5.5 Ur Specific [place] 1.020 Urine Protein 3+ H Urine Glucose (UA) Negative Urine Ketones Negative Urine Blood Trace-lysed Urine Nitrite Negative Urine Bilirubin Negative Urine Urobilinogen 0.2 Ur Leukocyte Esterase 1+ H Urine WBC (Auto) 190.3 Urine RBC (Auto) 8.0 Urine Casts (Auto) 1.54 U Epithel Cells (Auto) 64.9 U Sm Round Cell (Auto) None seen Urine Bacteria (Auto) 37.2 11/29/19 11/29/19 11/30/19 12:00 17:27 05:40 WBC 7.4 RBC 3.83 L Hgb 11.9 Hct 36.0 MCV 93.9 MCH 31.0 MCHC 33.0 RDW 14.0 Plt Count 224 MPV 8.1 Absolute Neuts (auto) 5.5 Neutrophils % 73.8 Neutrophils % (Manual) Band Neutrophils % Lymphocytes % 16.4 D Lymphocytes % (Manual) Monocytes % 7.8 D Monocytes % (Manual) Eosinophils % 1.1 D Eosinophils % (Manual) Basophils % 0.9 Basophils % (Manual) Myelocytes % (Man) Promyelocytes % (Man) Blast Cells % (Manual) Nucleated RBC % 0 Metamyelocytes Hypochromia Platelet Estimate Polychromasia Poikilocytosis Anisocytosis Microcytosis Macrocytosis Anticoagulation Therapy Puncture Site Patient Temperature ABG pH ABG pCO2 ABG pO2 ABG HCO3 ABG O2 Sat (Measured) ABG O2 Content ABG Base Excess Jm Test Patient On Oxygen O2 Delivery Device Oxygen Flow Rate Vent Mode Vent Rate Mechanical Rate PEEP Pressure Support Vent Sodium Potassium Chloride Carbon Dioxide Anion Gap BUN Creatinine Est GFR (CKD-EPI)AfAm Est GFR (CKD-EPI)NonAf POC Glucometer 141 Random Glucose Hemoglobin A1c % Lactic Acid Calcium Magnesium Total Bilirubin AST ALT Alkaline Phosphatase Ammonia 41.60 H Total Protein Albumin TSH Urine Color Urine Appearance Urine pH Ur Specific [place] Urine Protein Urine Glucose (UA) Urine Ketones Urine Blood Urine Nitrite Urine Bilirubin Urine Urobilinogen Ur Leukocyte Esterase Urine WBC (Auto) Urine RBC (Auto) Urine Casts (Auto) U Epithel Cells (Auto) U Sm Round Cell (Auto) Urine Bacteria (Auto) 11/30/19 11/30/19 11/30/19 05:40 05:40 05:55 WBC RBC Hgb Hct MCV MCH MCHC RDW Plt Count MPV Absolute Neuts (auto) Neutrophils % Neutrophils % (Manual) Band Neutrophils % Lymphocytes % Lymphocytes % (Manual) Monocytes % Monocytes % (Manual) Eosinophils % Eosinophils % (Manual) Basophils % Basophils % (Manual) Myelocytes % (Man) Promyelocytes % (Man) Blast Cells % (Manual) Nucleated RBC % Metamyelocytes Hypochromia Platelet Estimate Polychromasia Poikilocytosis Anisocytosis Microcytosis Macrocytosis Anticoagulation Therapy Puncture Site Patient Temperature ABG pH ABG pCO2 ABG pO2 ABG HCO3 ABG O2 Sat (Measured) ABG O2 Content ABG Base Excess Jm Test Patient On Oxygen O2 Delivery Device Oxygen Flow Rate Vent Mode Vent Rate Mechanical Rate PEEP Pressure Support Vent Sodium 140 Potassium 3.9 Chloride 104 Carbon Dioxide 29 Anion Gap 8 BUN 36.7 H Creatinine 3.9 H Est GFR (CKD-EPI)AfAm 16.86 Est GFR (CKD-EPI)NonAf 14.54 POC Glucometer 94 Random Glucose 93 Hemoglobin A1c % 5.9 Lactic Acid Calcium 7.8 L Magnesium 2.0 Total Bilirubin 0.3 AST 21 ALT 22 Alkaline Phosphatase 106 Ammonia Total Protein 5.9 L Albumin 2.9 L TSH 1.25 D Urine Color Urine Appearance Urine pH Ur Specific [place] Urine Protein Urine Glucose (UA) Urine Ketones Urine Blood Urine Nitrite Urine Bilirubin Urine Urobilinogen Ur Leukocyte Esterase Urine WBC (Auto) Urine RBC (Auto) Urine Casts (Auto) U Epithel Cells (Auto) U Sm Round Cell (Auto) Urine Bacteria (Auto) S1 S2 RRR Lungs clear Abd- soft, NT No edema A.P UTI-- blood cultures negative -- urine cultures positive on oral antibioticsas per ID -- ID consult appreciated AMS -- due to hypoglycemia,--hypoglycemic last evening-- change the sliding scale A1 C 5.9-- dc Insulin restarted Methadone continue with meds -- HD as renal Discharge planning possibly tomorrow after dialysis I will monitor him for now for further hypoglycemic episodes Problem List - Problems (1) Hypoglycemia Code(s): E16.2 - HYPOGLYCEMIA, UNSPECIFIED (2) Hypothermia Code(s): T68.XXXA - HYPOTHERMIA, INITIAL ENCOUNTER Qualifiers: Encounter type: initial encounter Qualified Code(s): T68.XXXA - Hypothermia, initial encounter (3) Sepsis Code(s): A41.9 - SEPSIS, UNSPECIFIED ORGANISM Qualifiers: Sepsis type: sepsis due to unspecified organism Sepsis acute organ dysfunction status: unspecified Qualified Code(s): A41.9 - Sepsis, unspecified organism (4) COPD (chronic obstructive pulmonary disease) Code(s): J44.9 - CHRONIC OBSTRUCTIVE PULMONARY DISEASE, UNSPECIFIED (5) End stage renal disease on dialysis Code(s): N18.6 - END STAGE RENAL DISEASE; Z99.2 - DEPENDENCE ON RENAL DIALYSIS
[2019-12-01] MEDS ORDERED: INSULIN SLIDING SCALE (NOVOLOG) 1 VIAL SQ SCH (16:30)
--- NOTE | 2019-12-01 18:04 | PN ---
Progress Note (short form) - Note Progress Note: Problems 1. Hypoglycemia 2. R/o occult infection 3. ESRD on HD 4. Hyperkalemia 5. Renal Osteodystrophy 6. Hx of CHF w/o acute exacerbation Active Medications Acetaminophen (Tylenol -) 650 mg PO Q6H PRN PRN Reason: PAIN LEVEL 1-5 Amoxicillin (Amoxicillin -) 500 mg PO BID [facility] Aspirin (Ecotrin -) 81 mg PO DAILY [facility] Last Admin: 11/30/19 10:14 Dose: 81 mg Documented by: Calcium Acetate (Phoslo -) 667 mg PO TIDCM [facility] Last Admin: 11/30/19 17:29 Dose: 667 mg Documented by: Clonidine HCl (Catapres Tts Patch -) 0.1 mg TD Q7D@1000 [facility] Enoxaparin Sodium (Lovenox -) 30 mg SQ DAILY [facility] Last Admin: 11/30/19 10:14 Dose: 30 mg Documented by: Hydralazine HCl (Apresoline -) 25 mg PO BID [facility] Last Admin: 11/30/19 10:14 Dose: 25 mg Documented by: Sodium Chloride (Normal Saline -) 250 mls @ 3,000 mls/hr IV PRN PRN PRN Reason: Hypotension during Dialysis Stop: 11/30/19 16:31 Insulin Aspart ([facility]olog Vial Sliding Scale -) [facility]; Protocol Last Admin: 11/30/19 17:29 Dose: 6 units Documented by: Isosorbide Mononitrate (Imdur -) 60 mg PO DAILY [facility] Last Admin: 11/30/19 10:15 Dose: 60 mg Documented by: Labetalol HCl (Normodyne -) 300 mg PO BID [facility] Last Admin: 11/30/19 10:14 Dose: 300 mg Documented by: Methadone HCl 40 mg/ Methadone (HCl 20 mg) 60 mg PO DAILY@0600 [facility] Last Admin: 11/30/19 10:22 Dose: 60 mg Documented by: Nifedipine (Procardia Xl -) 60 mg PO BID [facility] Last Admin: 11/30/19 10:15 Dose: 60 mg Documented by: Pantoprazole Sodium (Protonix -) 40 mg PO DAILY [facility] Last Admin: 11/30/19 10:15 Dose: 40 mg Documented by: Torsemide (Demadex -) 100 mg PO BID@0600,1300 [facility] Last Admin: 11/30/19 12:13 Dose: 100 mg Documented by: Vancomycin HCl (Vancomycin (Pre-Docked)) 1,000 mg IVPB ONCE ONE; Protocol Stop: 11/29/19 16:40 Last Vital Signs Temp Pulse Resp BP Pulse Ox 98.2 F 66 22 H 121/50 L 96 11/30/19 15:00 11/30/19 15:00 11/30/19 15:00 11/30/19 15:00 11/30/19 15:00 Lungs clear Heart reg Abd soft nontender Ext no edema CBC, BMP 11/30/19 05:40 11/30/19 05:40 ESRD on HD MWF s/p Hypoglycemia Plan- HD tomorrow
[2019-12-01] MEDS ORDERED: SODIUM CHLORIDE 250 ML IV PRN (18:09)
[2019-12-02] MEDS ORDERED: METHADONE HCL 10 MG TABLET ONE (06:06)
[2019-12-02] MEDS ORDERED: METHADONE HCL 40 MG DISPERSABLE TABLET ONE (06:06)
[2019-12-02] MEDS: METHADONE 40 MG, METHADONE 20 MG PO SCH (06:09)
[2019-12-02] MEDS: TORSEMIDE 100 MG TABLET PO SCH ×2 (06:10→13:11)
[2019-12-02] MEDS: INSULIN SLIDING SCALE (NOVOLOG) 1 VIAL SQ SCH ×2 (06:10→15:50)
[2019-12-02] MEDS: CALCIUM ACETATE 667 MG CAPSULE (FP) PO SCH ×2 (08:05→12:05)
[2019-12-02] MEDS: AMOXICILLIN 500 MG CAPSULE (FP) PO SCH (10:08)
[2019-12-02] MEDS: ASPIRIN COATED 81 MG TABLET.EC PO SCH (10:09)
[2019-12-02] MEDS: hydrALAZINE HCL 25 MG TABLET (FP) PO SCH (10:09)
[2019-12-02] MEDS: LABETALOL HCL 100 MG TABLET (FP) PO SCH (10:09)
[2019-12-02] MEDS: ENOXAPARIN NA (PORCINE) 30 MG/0.3 ML DISP.SYRIN SQ SCH (10:09)
[2019-12-02] MEDS: ISOSORBIDE MONONITRATE 60 MG TAB.SR.24H (FP) PO SCH (10:09)
[2019-12-02] MEDS: PANTOPRAZOLE 40 MG TABLET PO SCH (10:10)
[2019-12-02] MEDS: NIFEdipine E.R 60 MG TABLET PO SCH (10:10)
--- NOTE | 2019-12-02 11:11 | DS ---
Physical Examination Vital Signs: Vital Signs Temperature 98 F 12/02/19 06:03 Pulse Rate 72 12/02/19 06:03 Respiratory Rate 18 12/02/19 06:03 Blood Pressure 145/76 12/02/19 06:03 O2 Sat by Pulse Oximetry (%) 95 12/01/19 21:56 Findings/Remarks: Feels well no complains chart reviewed Constitutional: Yes: No Distress, Calm Neck: Yes: Supple Cardiovascular: Yes: Regular Rate and Rhythm Respiratory: Yes: CTA Bilaterally Gastrointestinal: Yes: Soft Edema: No Neurological: Yes: Alert Psychiatric: Yes: Alert Labs: CBC, BMP 11/30/19 05:40 11/30/19 21:45 Discharge Summary Problems reviewed: Yes Reason For Visit: HYPOGLYCEMIA,HYPOTHERMIA,SEPSIS Current Active Problems Hypoglycemia (Acute) Hypothermia (Acute) Sepsis (Acute) Hospital Course: Admitted for Hypoglycemia/AMS/Sepsis Took double dose of Insulin Given broad spectrum abx Blood cultures -ve U/C + got better Stable for d/c home on po abx Instructions given about Insulin meds reconcilled Prescribed as needed d/w RN also Will d/c after dialysis today Pt to follow with his pmd in one week D/c time approx 40 min in exam/ dcoumenting/ coordating care Condition: Improved - Instructions Referrals: Rex Hillman MD [Primary Care Provider] - Disposition: HOME - Home Medications Comprehensive Discharge Medication List: Ambulatory Orders Methadone [Dolophine -] 60 mg PO DAILY@0600 tablet MDD 1 10/18/18 Aspirin [Aspirin EC] 81 mg PO DAILY #30 tablet.dr 10/27/18 Atorvastatin Ca [Lipitor] 20 mg PO HS #30 tablet 10/27/18 Calcium Acetate [Phoslo -] 667 mg PO TIDCM #90 capsule 10/27/18 Cholecalciferol (Vitamin D3) [Dialyvite Vitamin D3 Max] 50,000 unit PO WEEKLY #4 tablet 10/27/18 Isosorbide Mononitrate [Imdur -] 60 mg PO DAILY #30 tab.sr.24h 10/27/18 Labetalol HCl [Normodyne -] 300 mg PO BID #60 tablet 10/27/18 Omeprazole 40 mg PO DAILY 03/22/19 Clonidine Patch [Catapres Tts Patch -] 0.1 mg TD Q7D@1000 #14 patch.tdwk 04/02/19 Nifedipine ER [Procardia XL -] 60 mg PO BID #60 tab.er.24 04/02/19 Torsemide [Demadex -] 100 mg PO BID@0600,1300 #60 tablet 04/02/19 hydrALAZINE HCL [Apresoline -] 25 mg PO BID #60 tablet 04/02/19 Acetaminophen [Tylenol .Regular Strength -] 650 mg PO Q6H PRN tablet 12/02/19 Amoxicillin - [Amoxicillin 500mg Capsule -] 500 mg PO BID #14 capsule 12/02/19 Insulin Glargine,Hum.rec.anlog [Lantus] 10 unit SQ HS #0 unit 12/02/19
[2019-12-02 15:04] VITALS: BP 186/90; PULSE 60
--- NOTE | 2019-12-02 15:52 | PN ---
Progress Note, Physician History of Present Illness: Seen and examined at the bedside. Awake and alert. Currently getting dialysis. BP elevated. Access functioning well. Denies any LOZANO, CP, SOB, Abd pain, N/V/D for discharge home today - Current Medication List Current Medications: Active Medications Acetaminophen (Tylenol -) 650 mg PO Q6H PRN PRN Reason: PAIN LEVEL 1-5 Amoxicillin (Amoxicillin -) 500 mg PO BID [facility] Last Admin: 12/01/19 21:01 Dose: 500 mg Documented by: Aspirin (Ecotrin -) 81 mg PO DAILY [facility] Last Admin: 12/01/19 09:27 Dose: 81 mg Documented by: Calcium Acetate (Phoslo -) 667 mg PO TIDCM [facility] Last Admin: 12/01/19 18:00 Dose: 667 mg Documented by: Clonidine HCl (Catapres Tts Patch -) 0.1 mg TD Q7D@1000 [facility] Enoxaparin Sodium (Lovenox -) 30 mg SQ DAILY [facility] Last Admin: 12/01/19 09:27 Dose: 30 mg Documented by: Hydralazine HCl (Apresoline -) 25 mg PO BID [facility] Last Admin: 12/01/19 21:01 Dose: 25 mg Documented by: Sodium Chloride (Normal Saline -) 250 mls @ 3,000 mls/hr IV PRN PRN PRN Reason: Hypotension during Dialysis Stop: 11/30/19 16:31 Sodium Chloride (Normal Saline -) 250 mls @ 3,000 mls/hr IV PRN PRN PRN Reason: Hypotension during Dialysis Stop: 12/02/19 18:09 Insulin Aspart (Novolog Vial Sliding Scale -) 1 vial SQ [facility]; Protocol Last Admin: 12/02/19 06:10 Dose: Not Given Documented by: Isosorbide Mononitrate (Imdur -) 60 mg PO DAILY [facility] Last Admin: 12/01/19 09:26 Dose: 60 mg Documented by: Labetalol HCl (Normodyne -) 300 mg PO BID [facility] Last Admin: 12/01/19 21:01 Dose: 300 mg Documented by: Methadone HCl 40 mg/ Methadone (HCl 20 mg) 60 mg PO DAILY@0600 [facility] Last Admin: 12/02/19 06:09 Dose: 60 mg Documented by: Nifedipine (Procardia Xl -) 60 mg PO BID [facility] Last Admin: 12/01/19 21:01 Dose: 60 mg Documented by: Pantoprazole Sodium (Protonix -) 40 mg PO DAILY [facility] Last Admin: 12/01/19 09:27 Dose: 40 mg Documented by: Torsemide (Demadex -) 100 mg PO BID@0600,1300 [facility] Last Admin: 12/02/19 06:10 Dose: 100 mg Documented by: Vancomycin HCl (Vancomycin (Pre-Docked)) 1,000 mg IVPB ONCE ONE; Protocol Stop: 11/29/19 16:40 - Objective Vital Signs: Vital Signs Temperature 98 F 12/02/19 06:03 Pulse Rate 60 12/02/19 15:03 Respiratory Rate 18 12/02/19 15:03 Blood Pressure 186/90 H 12/02/19 15:03 O2 Sat by Pulse Oximetry (%) 95 12/01/19 21:56 Constitutional: Yes: No Distress HENT: Yes: Atraumatic Neck: Yes: Supple Cardiovascular: Yes: Regular Rate and Rhythm Respiratory: Yes: Regular, CTA Bilaterally Gastrointestinal: Yes: Soft. No: Tenderness Edema: No Labs: CBC, BMP 11/30/19 05:40 11/30/19 21:45 Assessment/Plan 69 year old male with history of ESRD on HD, DM, Hypertension, CHF, history of substance abuse on methadone who presented from home with unresponsiveness and hypoglycemia. 1. Hypoglycemia 2. R/o occult infection 3. ESRD on HD 4. Hyperkalemia 5. Renal Osteodystrophy 6. Hx of CHF w/o acute exacerbation Tolerating dialysis well this AM. Will ask nurse to give AM antihypertenives during dialysis as BP is elevated Blood glucose has been within acceptable range. Blood cultures showed no growth. Renal diet discharge planning as per primary team. Thank you Dariusz Iniguez DO
[2019-12-02 17:18] VITALS: TEMP 98.6
--- NOTE | 2019-12-02 22:04 | EKG ---
Test Reason : Blood Pressure : / mmHG Vent. Rate : 057 BPM Atrial Rate : 057 BPM P-R Int : 178 ms QRS Dur : 110 ms QT Int : 468 ms P-R-T Axes : 043 016 007 degrees QTc Int : 455 ms SINUS BRADYCARDIA POSSIBLE LEFT ATRIAL ENLARGEMENT NONSPECIFIC T WAVE ABNORMALITY ABNORMAL ECG WHEN COMPARED WITH ECG OF 22-MAR-2019 16:37, T WAVE VARIATION Confirmed by JAY JAY CALLAHAN MD ([id number]) on 12/02/2019 10:04:11 PM Referred By: Confirmed By:JAY JAY CALLAHAN MD
[2019-12-03] MEDS ORDERED: cloNIDine-TTS 0.1 MG/24 HRS PATCH.TDWK TD SCH (10:00)
== END 2019-12-02 16:24 | disposition home or self-care (01) | DRG 637 ==
LOC: JER 08:23 → JERBED 14:10 → J4W 15:41
PROVIDERS: ADMIT Internal Medicine; ATTEND Internal Medicine
PROC: 5A1D70Z Performance of Urinary Filtration, Intermittent, Less than 6 Hours Per Day (ICD-10-PCS; principal; 2019-12-02)
DX: E11.649 Type 2 diabetes mellitus with hypoglycemia without coma (principal); G93.41 Metabolic encephalopathy; N39.0 Urinary tract infection, site not specified; F11.20 Opioid dependence, uncomplicated; I13.2 Hypertensive heart and chronic kidney disease with heart failure and with stage 5 chronic kidney disease, or end stage renal disease; N18.6 End stage renal disease; E87.5 Hyperkalemia; N25.0 Renal osteodystrophy; I50.9 Heart failure, unspecified; Z99.2 Dependence on renal dialysis; K21.9 Gastro-esophageal reflux disease without esophagitis
CPT/HCPCS: 36415; 36600; 70450-TC; 71045-TC-FY; 71250-TC; 80048; 80053; 81003; 82140; 82803; 82947; 82962; 83036; 83605; 83735; 84443; 85025; 86803; 87040; 87077; 87086; 87340; 93005; 93010; 99285-25; U0003

== ENCOUNTER 2020-02-19 04:37 | Day surgery (SDC) | payer OTHER ==
[2020-02-19 08:43] VITALS: BMI 25.4
[2020-02-19 08:59] LABS: INR 1.01 (0.83-1.09); PROTHROMBIN TIME (PATIENT) 12.4 SEC (9.7-13.0)
[2020-02-19 09:18] LABS: POTASSIUM 3.6 mmol/L (3.5-5.1)
[2020-02-19] MEDS ORDERED: ISOSORBIDE MONONITRATE 60 MG TAB.SR.24H (FP) PO ONE (09:19)
[2020-02-19] MEDS ORDERED: METHADONE HCL 10 MG TABLET (FOR DETOX USE ONLY) PO ONE (09:19)
[2020-02-19] MEDS ORDERED: LABETALOL HCL 100 MG TABLET (FP) PO ONE (09:20)
[2020-02-19] MEDS ORDERED: hydrALAZINE HCL 25 MG TABLET (FP) PO ONE (09:20)
[2020-02-19] MEDS ORDERED: ASPIRIN 81 MG CHEWABLE TABLETS ONE (09:40)
[2020-02-19] MEDS: ASPIRIN 81 MG CHEWABLE TABLETS PO ONE ×2 (09:41→09:45)
[2020-02-19] MEDS ORDERED: PAPAVERINE HCL 30 MG/1 ML 10 ML VIAL NR ONE (09:55)
[2020-02-19] MEDS ORDERED: LIDOCAINE HCL 1%, 10 MG/ML (20ML VIAL) ONE (09:56)
[2020-02-19] MEDS ORDERED: cloNIDine-TTS 0.1 MG/24 HRS PATCH.TDWK TD SCH (10:00)
[2020-02-19] MEDS ORDERED: NIFEdipine E.R 60 MG TABLET PO SCH (10:00)
[2020-02-19] MEDS ORDERED: MIDAZOLAM HCL 2 MG/2 ML SINGLE DOSE VIAL ONE ×2 (10:29)
[2020-02-19] MEDS ORDERED: PROPOFOL 20 ML ONE (10:41)
[2020-02-19] MEDS ORDERED: LIDOCAINE HCL 1%, 10 MG/ML (20ML VIAL) NR ONE (10:50)
[2020-02-19] MEDS ORDERED: POVIDONE-IODINE OINTMENT 10% - 28.4 GM TUBE TP ONE (12:20)
[2020-02-19 17:18] VITALS: BP 135/45; PULSE 56; TEMP 97.8
== END 2020-02-19 15:00 | disposition home or self-care (01) ==
LOC: JASU-SURG 04:37
PROVIDERS: ATTEND Surgery
PROC: 03180ZD Bypass Left Brachial Artery to Upper Arm Vein, Open Approach (ICD-10-PCS; principal; 2020-02-19 10:00)
DX: I12.0 Hypertensive chronic kidney disease with stage 5 chronic kidney disease or end stage renal disease (principal); E11.22 Type 2 diabetes mellitus with diabetic chronic kidney disease; N18.6 End stage renal disease; Z99.2 Dependence on renal dialysis; B19.20 Unspecified viral hepatitis C without hepatic coma; C34.90 Malignant neoplasm of unspecified part of unspecified bronchus or lung
CPT/HCPCS: 36415; 73060-TC-LT-FY; 82947; 84132; 85610; J1644

== ENCOUNTER 2020-04-30 14:01 | Inpatient (IN) | payer OTHER ==
[2020-04-30 15:13] VITALS: BMI 23.3
[2020-04-30 18:07] LABS: BASO % 0.6 % (0-2.0); EOS % 0.3 % (0-4.5); HEMATOCRIT 34.1 % (35.4-49); HEMOGLOBIN 11.1 GM/dL (11.7-16.9); LYMPH % 8.1 % (8-40); MCH 31.3 pg (25.7-33.7); MCHC 32.7 g/dl (32.0-35.9); MEAN CELL VOLUME 95.7 fl (80-96); MEAN PLT VOLUME 8.9 fl (7.5-11.1); MONO % 11.4 % (3.8-10.2); NEUT % 79.6 % (42.8-82.8); PLATELET COUNT 198 K/MM3 (134-434); RBC 3.56 M/mm3 (4.00-5.60); RDW 13.8 % (11.9-15.9); WHITE BLOOD COUNT 6.2 K/mm3 (4.0-10.0)
[2020-04-30 18:20] LABS: INR 1.09 (0.83-1.09); PROTHROMBIN TIME (PATIENT) 13.2 SEC (9.7-13.0)
[2020-04-30 18:22] LABS: ACTIVATED PTT 28.1 SECONDS (25.2-36.5)
[2020-04-30 18:25] LABS: POTASSIUM 4.4 mmol/L (3.5-5.1)
[2020-04-30 18:27] LABS: CALCIUM 8.9 mg/dL (8.5-10.1)
[2020-04-30 18:28] LABS: ALBUMIN 3.7 g/dl (3.4-5.0); BLOOD UREA NITROGEN 52.6 mg/dL (7-18)
[2020-04-30 18:31] LABS: CREATININE 4.2 mg/dL (0.55-1.3)
[2020-04-30 18:32] LABS: BILIRUBIN,TOTAL 0.4 mg/dL (0.2-1)
[2020-04-30 18:49] LABS: N-TERMINAL BNP 63931.1 pg/ml (5-125)
[2020-04-30] MEDS ORDERED: DEXAMETHASONE SOD PHOSPHATE 4 MG/1 ML VIAL IVPUSH ONE (19:25)
[2020-04-30] MEDS ORDERED: DEXAMETHASONE SOD PHOSPHATE 10 MG/1 ML VIAL ONE (20:53)
[2020-05-01] MEDS ORDERED: LORazepam 0.5 MG TABLET PO ONE (07:20)
[2020-05-01] MEDS ORDERED: ROCURONIUM BROMIDE 50 MG/5 ML SYRINGE ONE (07:32)
[2020-05-01] MEDS ORDERED: fentaNYL CITRATE 250 MCG/5 ML VIAL ONE (07:32)
[2020-05-01] MEDS ORDERED: PROPOFOL 20 ML ONE (07:32)
[2020-05-01] MEDS ORDERED: SUCCINYLCHOLINE CHLORIDE 200 MG/10 ML SYRINGE ONE (07:32)
[2020-05-01] MEDS ORDERED: MIDAZOLAM HCL 2 MG/2 ML SINGLE DOSE VIAL ONE (07:32)
[2020-05-01] MEDS ORDERED: LIDOCAINE HCL/PF 2% SDV 5ML VIAL ONE (07:33)
[2020-05-01] MEDS ORDERED: METHADONE HCL 10 MG TABLET PO SCH (07:45)
[2020-05-01] MEDS ORDERED: ASPIRIN COATED 81 MG TABLET.EC ONE (08:47)
[2020-05-01] MEDS ORDERED: ATORVASTATIN CA 20 MG TABLET (FP) ONE (08:48)
[2020-05-01] MEDS ORDERED: LORazepam 0.5 MG TABLET ONE (08:48)
[2020-05-01] MEDS ORDERED: POTASSIUM CHLORIDE TABS 20 MEQ TABLET.ER (FP) PO ONE (08:48)
[2020-05-01] MEDS ORDERED: LABETALOL HCL 100 MG TABLET (FP) ONE (08:48)
[2020-05-01] MEDS ORDERED: NIFEdipine E.R. 30 MG TABLET ONE (08:49)
[2020-05-01] MEDS ORDERED: ISOSORBIDE MONONITRATE 60 MG TAB.SR.24H (FP) PO ONE (08:49)
[2020-05-01] MEDS ORDERED: METHADONE HCL 10 MG TABLET ONE (08:50)
[2020-05-01] MEDS ORDERED: METHADONE HCL 40 MG DISPERSABLE TABLET ONE (08:50)
[2020-05-01] MEDS: TORSEMIDE 100 MG TABLET PO SCH ×2 (08:52→12:33)
[2020-05-01 08:57] LABS: BASO % 0.3 % (0-2.0); HEMOGLOBIN 11.3 GM/dL (11.7-16.9); LYMPH % 6.6 % (8-40); MCH 31.7 pg (25.7-33.7); MCHC 33.2 g/dl (32.0-35.9); MEAN CELL VOLUME 95.4 fl (80-96); MEAN PLT VOLUME 8.9 fl (7.5-11.1); MONO % 6.8 % (3.8-10.2); NEUT % 86.3 % (42.8-82.8); PLATELET COUNT 187 K/MM3 (134-434); RBC 3.56 M/mm3 (4.00-5.60); RDW 13.9 % (11.9-15.9); WHITE BLOOD COUNT 5.7 K/mm3 (4.0-10.0)
[2020-05-01] MEDS ORDERED: METHADONE 40 MG, METHADONE 20 MG PO SCH (09:00)
[2020-05-01 09:17] LABS: POTASSIUM 4.5 mmol/L (3.5-5.1)
[2020-05-01 09:26] LABS: CALCIUM 8.5 mg/dL (8.5-10.1)
[2020-05-01 09:27] LABS: ALBUMIN 3.5 g/dl (3.4-5.0); BLOOD UREA NITROGEN 61.5 mg/dL (7-18)
[2020-05-01 09:30] LABS: CREATININE 4.4 mg/dL (0.55-1.3)
[2020-05-01 09:31] LABS: BILIRUBIN,TOTAL 0.6 mg/dL (0.2-1); TOT PROT 6.5 g/dl (6.4-8.2)
[2020-05-01] MEDS ORDERED: hydrALAZINE HCL 25 MG TABLET (FP) PO SCH (10:00)
[2020-05-01] MEDS ORDERED: POTASSIUM CHLORIDE TABS 20 MEQ TABLET.ER (FP) PO SCH (10:00)
[2020-05-01] MEDS ORDERED: LABETALOL HCL 200 MG TABLET (FP) PO SCH (10:00)
[2020-05-01] MEDS ORDERED: ERGOCALCIFEROL (VIT D2) 50,000 UNIT (1.25 MG) CAPSULE PO SCH (10:00)
[2020-05-01] MEDS ORDERED: cloNIDine-TTS 0.1 MG/24 HRS PATCH.TDWK TD SCH (10:00)
[2020-05-01] MEDS ORDERED: ASPIRIN COATED 81 MG TABLET.EC PO SCH (10:00)
[2020-05-01] MEDS ORDERED: PANTOPRAZOLE 40 MG TABLET PO SCH (10:00)
[2020-05-01] MEDS ORDERED: ATORVASTATIN CA 20 MG TABLET (FP) PO SCH (10:00)
[2020-05-01] MEDS ORDERED: NIFEdipine E.R 60 MG TABLET PO SCH (10:00)
[2020-05-01] MEDS ORDERED: ISOSORBIDE MONONITRATE 60 MG TAB.SR.24H (FP) PO SCH (10:00)
[2020-05-01 11:40] VITALS: PULSE 90
[2020-05-01] MEDS: CALCIUM ACETATE 667 MG CAPSULE (FP) PO SCH ×2 (11:43→17:42)
[2020-05-01] MEDS ORDERED: SODIUM CHLORIDE 250 ML IV PRN (11:56)
[2020-05-01] MEDS ORDERED: ENOXAPARIN NA (PORCINE) 30 MG/0.3 ML DISP.SYRIN SQ SCH (12:15)
[2020-05-01] MEDS ORDERED: ENOXAPARIN NA (PORCINE) 30 MG/0.3 ML DISP.SYRIN SQ ONE (12:35)
[2020-05-01 18:59] VITALS: TEMP 98.2
[2020-05-01 19:01] VITALS: BP 158/89
[2020-05-01] MEDS ORDERED: INSULIN (LEVEMIR) 100 UNITS/ML UNITS SQ SCH (22:00)
[2020-05-02] MEDS ORDERED: DEXAMETHASONE SOD PHOSPHATE 4 MG/1 ML VIAL IVPUSH SCH (10:00)
== END 2020-05-01 20:20 | disposition short-term general hospital (02) | DRG 177 ==
LOC: JER 14:01 → JERBED 19:26
PROVIDERS: ADMIT Hospitalist; ATTEND Internal Medicine
PROC: XW033E5 Introduction of Remdesivir Anti-infective into Peripheral Vein, Percutaneous Approach, New Technology Group 5 (ICD-10-PCS; principal; 2020-05-01)
PROC: XW13325 Transfusion of Convalescent Plasma (Nonautologous) into Peripheral Vein, Percutaneous Approach, New Technology Group 5 (ICD-10-PCS; 2020-05-01)
DX: U07.1 COVID-19 (principal); J12.82 Pneumonia due to coronavirus disease 2019; I50.33 Acute on chronic diastolic (congestive) heart failure; N18.6 End stage renal disease; I13.2 Hypertensive heart and chronic kidney disease with heart failure and with stage 5 chronic kidney disease, or end stage renal disease; I24.8 Other forms of acute ischemic heart disease; E11.9 Type 2 diabetes mellitus without complications; K21.9 Gastro-esophageal reflux disease without esophagitis; E78.5 Hyperlipidemia, unspecified; D63.1 Anemia in chronic kidney disease; N25.0 Renal osteodystrophy
CPT/HCPCS: 36415; 71045-TC-FY; 80053; 82550; 82728; 82962; 83615; 83880; 84484; 85025; 85379; 85610; 85730; 86140; 87804; 93005; 93010; 99291; C9803; U0003

== ENCOUNTER 2022-02-15 22:03 | Inpatient (IN) | payer OTHER ==
[2022-02-15] MEDS ORDERED: LEVALBUTEROL HCL 0.63 MG/3 ML VIAL.NEB. IH PRN ×3 (22:07→22:08)
[2022-02-15] MEDS ORDERED: methylPREDNISolone NA SUCC 125 MG/2 ML VIAL IVPUSH ONE (22:08)
[2022-02-15 22:26] VITALS: BMI 21.7
[2022-02-15] MEDS ORDERED: FUROSEMIDE 40 MG/4 ML INJECTABLE VIAL IVPUSH ONE (22:30)
[2022-02-15] MEDS ORDERED: morphine CARPU-JECT 4 MG/1 ML DISP.SYRIN IVPUSH ONE (22:31)
[2022-02-15] MEDS ORDERED: NITROGLYCERIN 2% OINTMENT - 1GM PACKET TD ONE ×2 (22:31→22:48)
[2022-02-15 22:36] LABS: ARTERIAL BLD GAS O2 SATURATION 99.6 % (95-98); ARTERIAL BLOOD GAS BASE EXCESS -2.7 mmol/L (-2-2); ARTERIAL BLOOD GAS PO2 267.7 mmHg (80-100); ARTERIAL BLOOD GAS pH 7.369 (7.350-7.450)
[2022-02-15 22:37] LABS: ALLENS TEST POSITIVE
[2022-02-15 22:38] LABS: VENT RATE 16
[2022-02-15 22:39] LABS: VENOUS BASE EXCESS -4.3 mmol/L (-2-2); VENOUS O2 SATURATION 98.7 % (70-80); VENOUS PCO2 39.3 mmHg (38-52); VENOUS PH 7.345 (7.310-7.410)
[2022-02-15 22:40] LABS: BASO % 0.6 % (0-2.0); EOS % 0.7 % (0-4.5); HEMATOCRIT 38.1 % (35.4-49); HEMOGLOBIN 12.6 GM/dL (11.7-16.9); LYMPH % 10.4 % (8-40); MCH 32.8 pg (25.7-33.7); MCHC 33.1 g/dl (32.0-35.9); MONO % 6.3 % (3.8-10.2); PLATELET COUNT 173 10^3/uL (134-434); RBC 3.85 M/mm3 (4.00-5.60); RDW 14.9 % (11.9-15.9); WHITE BLOOD COUNT 8.2 K/mm3 (4.0-10.0)
[2022-02-15 22:46] LABS: INR 1.12 (0.83-1.09); PROTHROMBIN TIME (PATIENT) 12.9 SEC (9.7-13.0)
[2022-02-15] MEDS ORDERED: FUROSEMIDE 40 MG/4 ML INJECTABLE VIAL ONE (22:48)
[2022-02-15] MEDS ORDERED: morphine SULFATE 4 MG/ML VIAL ONE (22:48)
[2022-02-15 22:49] LABS: ACTIVATED PTT 29.2 SECONDS (25.2-36.5)
[2022-02-15 22:52] LABS: CHLORIDE 100 mmol/L (98-107); SODIUM 138 mmol/L (136-145)
[2022-02-15 22:54] LABS: ALBUMIN 3.9 g/dl (3.4-5.0); ANION GAP 13 MMOL/L (8-16); BLOOD UREA NITROGEN 94.6 mg/dL (7-18); CO2 25 mmol/L (21-32)
[2022-02-15 22:55] LABS: GLUCOSE,RANDOM 254 mg/dL (74-106); MAGNESIUM 1.8 mg/dL (1.8-2.4)
[2022-02-15 22:57] LABS: CREATININE 4.6 mg/dL (0.55-1.3); SGPT/ALT 28 U/L (13-61)
[2022-02-15 22:58] LABS: SGOT/AST 22 U/L (15-37)
[2022-02-15 22:59] LABS: BILIRUBIN,TOTAL 0.4 mg/dL (0.2-1)
[2022-02-15 23:00] LABS: ALK PHOS 69 U/L (45-117)
[2022-02-15 23:18] LABS: N-TERMINAL BNP 132911.3 pg/ml (5-125)
[2022-02-15] MEDS ORDERED: hydrALAZINE HCL 20 MG/ML VIAL IVPUSH ONE (23:47)
[2022-02-16] MEDS ORDERED: hydrALAZINE HCL 20 MG/ML VIAL ONE (00:02)
[2022-02-16] MEDS ORDERED: ASPIRIN 81 MG CHEWABLE TABLETS PO ONE (00:13)
[2022-02-16] MEDS ORDERED: ASPIRIN 81 MG CHEWABLE TABLETS ONE (00:19)
[2022-02-16] MEDS ORDERED: methaDONE HCL 10 MG TABLET PO SCH (07:30)
[2022-02-16 08:37] LABS: HEMATOCRIT 37.6 % (35.4-49); HEMOGLOBIN 12.6 GM/dL (11.7-16.9); MCHC 33.5 g/dl (32.0-35.9); MEAN CELL VOLUME 98.7 fl (80-96); MEAN PLT VOLUME 8.9 fl (7.5-11.1); PLATELET COUNT 160 10^3/uL (134-434); RBC 3.81 M/mm3 (4.00-5.60); RDW 14.9 % (11.9-15.9); WHITE BLOOD COUNT 4.9 K/mm3 (4.0-10.0)
[2022-02-16 08:55] LABS: CHLORIDE 100 mmol/L (98-107); SODIUM 138 mmol/L (136-145)
[2022-02-16 09:00] LABS: CALCIUM 9.1 mg/dL (8.5-10.1)
[2022-02-16 09:01] LABS: ALBUMIN 3.7 g/dl (3.4-5.0); ANION GAP 14 MMOL/L (8-16); CO2 24 mmol/L (21-32); GLUCOSE,RANDOM 292 mg/dL (74-106); MAGNESIUM 1.8 mg/dL (1.8-2.4)
[2022-02-16 09:05] LABS: CREATININE 4.9 mg/dL (0.55-1.3); SGOT/AST 16 U/L (15-37)
[2022-02-16 09:06] LABS: BILIRUBIN,TOTAL 0.4 mg/dL (0.2-1); TOT PROT 6.8 g/dl (6.4-8.2)
[2022-02-16 09:07] LABS: ALK PHOS 68 U/L (45-117)
[2022-02-16 09:08] LABS: SGPT/ALT 26 U/L (13-61)
[2022-02-16 09:10] LABS: BLOOD UREA NITROGEN 105.1 mg/dL (7-18)
[2022-02-16 09:17] LABS: ANISOCYTOSIS 1+; MACROCYTOSIS 1+; PLATELET ESTIMATE DECREASED
[2022-02-16] MEDS: cloNIDine HCL 0.1 MG TABLET PO SCH ×2 (10:15→21:15)
[2022-02-16] MEDS: PANTOPRAZOLE 40 MG TABLET PO SCH (10:15)
[2022-02-16] MEDS: ISOSORBIDE MONONITRATE 60 MG TAB.SR.24H (FP) PO SCH (10:15)
[2022-02-16] MEDS: LABETALOL HCL 200 MG TABLET (FP) PO SCH ×2 (10:15→21:15)
[2022-02-16] MEDS: CALCIUM ACETATE 667 MG CAPSULE (FP) PO SCH ×3 (10:15→21:15)
[2022-02-16] MEDS: methylPREDNISolone NA SUCC 40 MG/1 ML VIAL IVPUSH SCH (10:16)
[2022-02-16] MEDS: ASPIRIN COATED 81 MG TABLET.EC PO SCH (10:16)
[2022-02-16] MEDS ORDERED: SODIUM CHLORIDE 250 ML IV PRN (11:35)
[2022-02-16] MEDS: methaDONE 40 MG, methaDONE 30 MG PO SCH (11:53)
[2022-02-16] MEDS: ATORVASTATIN CA 20 MG TABLET (FP) PO SCH (21:15)
[2022-02-16] MEDS: hydrALAZINE HCL 25 MG TABLET (FP) PO SCH (21:15)
[2022-02-17] MEDS: methylPREDNISolone NA SUCC 40 MG/1 ML VIAL IVPUSH SCH ×4 (01:18→17:25)
[2022-02-17] MEDS: methaDONE 40 MG, methaDONE 30 MG PO SCH (05:47)
[2022-02-17] MEDS: hydrALAZINE HCL 25 MG TABLET (FP) PO SCH ×4 (05:48→21:40)
[2022-02-17] MEDS: TORSEMIDE 100 MG TABLET PO SCH ×3 (05:48→12:01)
[2022-02-17] MEDS: CALCIUM ACETATE 667 MG CAPSULE (FP) PO SCH ×3 (08:46→17:25)
[2022-02-17] MEDS: PANTOPRAZOLE 40 MG TABLET PO SCH (09:46)
[2022-02-17] MEDS: ASPIRIN COATED 81 MG TABLET.EC PO SCH (09:46)
[2022-02-17] MEDS: LABETALOL HCL 200 MG TABLET (FP) PO SCH ×2 (09:47→21:39)
[2022-02-17] MEDS: cloNIDine HCL 0.1 MG TABLET PO SCH ×2 (09:47→21:39)
[2022-02-17] MEDS: ISOSORBIDE MONONITRATE 60 MG TAB.SR.24H (FP) PO SCH (09:47)
[2022-02-17] MEDS ORDERED: SODIUM CHLORIDE 250 ML IV PRN (16:11)
[2022-02-17] MEDS: ATORVASTATIN CA 20 MG TABLET (FP) PO SCH (21:39)
[2022-02-18] MEDS: TORSEMIDE 100 MG TABLET PO SCH ×2 (05:23→13:50)
[2022-02-18] MEDS: hydrALAZINE HCL 50 MG TABLET (FP) PO SCH ×3 (05:23→21:26)
[2022-02-18] MEDS: methaDONE 40 MG, methaDONE 30 MG PO SCH (05:24)
[2022-02-18] MEDS: CALCIUM ACETATE 667 MG CAPSULE (FP) PO SCH ×3 (08:15→17:44)
[2022-02-18] MEDS: ASPIRIN COATED 81 MG TABLET.EC PO SCH (10:21)
[2022-02-18] MEDS: PANTOPRAZOLE 40 MG TABLET PO SCH (10:22)
[2022-02-18] MEDS: LABETALOL HCL 200 MG TABLET (FP) PO SCH ×2 (10:22→21:26)
[2022-02-18] MEDS: ISOSORBIDE MONONITRATE 60 MG TAB.SR.24H (FP) PO SCH (10:23)
[2022-02-18] MEDS: cloNIDine HCL 0.1 MG TABLET PO SCH ×2 (10:23→21:26)
[2022-02-18 14:40] LABS: HEMOGLOBIN 11.1 GM/dL (11.7-16.9); MCH 33.2 pg (25.7-33.7); MCHC 33.6 g/dl (32.0-35.9); MEAN CELL VOLUME 98.8 fl (80-96); MEAN PLT VOLUME 9.3 fl (7.5-11.1); PLATELET COUNT 145 10^3/uL (134-434); RBC 3.34 M/mm3 (4.00-5.60); RDW 14.7 % (11.9-15.9)
[2022-02-18 15:02] LABS: CALCIUM 8.5 mg/dL (8.5-10.1)
[2022-02-18 15:03] LABS: ALBUMIN 3.6 g/dl (3.4-5.0); BLOOD UREA NITROGEN 99.9 mg/dL (7-18)
[2022-02-18 15:06] LABS: CREATININE 5.9 mg/dL (0.55-1.3); PHOSPHOROUS 5.2 mg/dL (2.5-4.9)
[2022-02-18 15:07] LABS: TOT PROT 6.4 g/dl (6.4-8.2)
[2022-02-18 15:08] LABS: BILIRUBIN,TOTAL 0.4 mg/dL (0.2-1)
[2022-02-18] MEDS: ATORVASTATIN CA 20 MG TABLET (FP) PO SCH (21:26)
[2022-02-19] MEDS: methaDONE 40 MG, methaDONE 30 MG PO SCH (06:12)
[2022-02-19] MEDS: TORSEMIDE 100 MG TABLET PO SCH ×2 (06:13→13:17)
[2022-02-19] MEDS: hydrALAZINE HCL 50 MG TABLET (FP) PO SCH ×2 (06:14→13:38)
[2022-02-19] MEDS: CALCIUM ACETATE 667 MG CAPSULE (FP) PO SCH ×2 (07:37→11:30)
[2022-02-19 08:33] VITALS: RESP 18
[2022-02-19] MEDS: LABETALOL HCL 200 MG TABLET (FP) PO SCH (09:41)
[2022-02-19] MEDS: ISOSORBIDE MONONITRATE 60 MG TAB.SR.24H (FP) PO SCH (09:41)
[2022-02-19] MEDS: ASPIRIN COATED 81 MG TABLET.EC PO SCH (09:41)
[2022-02-19] MEDS: cloNIDine HCL 0.1 MG TABLET PO SCH (09:41)
[2022-02-19] MEDS: PANTOPRAZOLE 40 MG TABLET PO SCH (09:41)
[2022-02-19 09:58] VITALS: BP 132/56; PULSE 65; TEMP 98.1
== END 2022-02-19 15:35 | disposition home or self-care (01) | DRG 291 ==
LOC: JER 22:03 → JERBED 23:40 → J4W 02-16 03:52
PROVIDERS: ADMIT Family Medicine; ATTEND Internal Medicine
PROC: 5A1D70Z Performance of Urinary Filtration, Intermittent, Less than 6 Hours Per Day (ICD-10-PCS; principal; 2022-02-16)
DX: I13.2 Hypertensive heart and chronic kidney disease with heart failure and with stage 5 chronic kidney disease, or end stage renal disease (principal); I50.33 Acute on chronic diastolic (congestive) heart failure; J96.01 Acute respiratory failure with hypoxia; N18.6 End stage renal disease; I24.8 Other forms of acute ischemic heart disease; J44.1 Chronic obstructive pulmonary disease with (acute) exacerbation; Z99.2 Dependence on renal dialysis; J44.9 Chronic obstructive pulmonary disease, unspecified; Z85.118 Personal history of other malignant neoplasm of bronchus and lung; E11.22 Type 2 diabetes mellitus with diabetic chronic kidney disease; Z79.4 Long term (current) use of insulin; D64.9 Anemia, unspecified; E11.51 Type 2 diabetes mellitus with diabetic peripheral angiopathy without gangrene
CPT/HCPCS: 0241U-QW; 36415; 36600; 71045-TC-FY; 80048; 80053; 82803; 82962; 83735; 83880; 84100; 84484; 85025; 85027; 85610; 85730; 86803; 86850; 86900; 86901; 87340; 87522; 93005; 93010; 93306-TC; 94660; 99291; 99292